=== PATIENT | female | born 1990 | race Caucasian/White ===

== ENCOUNTER 2019-06-11 09:36 | Emergency (ER) | payer OTHER, SELFPAY ==
[2019-06-11 10:00] VITALS: BP 123/86; PULSE 84; RESP 16; TEMP 36.6; O2SAT 99
--- NOTE | 2019-06-11 10:01 | ED.URI ---
HPI - URI/Sore Throat General Chief Complaint: Upper Respiratory Infection Stated Complaint: Sore Throat Time Seen by Provider: 06/11/19 10:10 Source: patient and RN notes reviewed Mode of arrival: ambulatory Limitations: no limitations History of Present Illness HPI Narrative: 28-year-old female presents with concern for sore throat, ear pain, headache, cough, nasal congestion. Reports symptoms started 2 days ago. She denies any body aches, fever, chills. Reports taking Robitussin no relief. MD elicited complaint: sore throat Related Data Home Medications Medication Instructions Recorded Confirmed Unknown Anxiety Pill 06/11/19 famotidine 20 mg PO DAILY 06/11/19 06/11/19 Allergies Allergy/AdvReac Type Severity Reaction Status Date / Time amoxicillin Allergy Unknown RASH Verified 01/19/18 11:05 cefaclor Allergy Unknown RASH Verified 01/19/18 11:05 clavulanic acid Allergy Unknown RASH Verified 01/19/18 11:05 Review of Systems Review of Systems: Narrative: CONSTITUTIONAL: Denies malaise, chills, sweats, or fever. EYES: Denies visual changes, redness, or discharge. ENT: Reports rhinorrhea, congestion, sinus pain, otalgia and sore throat. CARDIOVASCULAR: Denies chest pain, palpitations, or edema. RESPIRATORY: Reports cough. Denies dyspnea. GASTROINTESTINAL: Denies abdominal pain, nausea, vomiting, diarrhea SKIN: Denies rash or itching. MUSCULOSKELETAL: Denies myalgia. NEUROLOGIC: Reports headache. All systems reviewed & are unremarkable except as noted in HPI and below PMFSH Comments At time of signature, agree with nursing past medical, surgical, social and family history. There is no relevant family history pertinent to the presenting complaint Exam Narrative: Exam Narrative: GENERAL: Well-appearing, well-nourished, and in no acute distress. HEAD: Normocephalic EYES: PERRLA, conjunctivae clear ENT: Nares clear, turbinates edematous and erythematous, clear discharge. Mucous membranes moist. TM pearly randolph with dull light reflex bilaterally; no tragal tenderness. Oropharynx not erythematous without lesions. Tonsils not enlarged and without exudate, no drooling, no hoarseness, no trismus. NECK: Supple. No lymphadenopathy CHEST: Clear to auscultation, breath sounds equal. No wheezing, rhonchi, rales, or stridor. No respiratory distress, speaks in full sentences. HEART: Regular rate and rhythm. No murmur heard. Normal peripheral pulses. SKIN: Warm, dry, no rash. NEURO: Alert and oriented x3. PSYCH: Normal mood and affect Course Course Emergency Course: Patient is aware of diagnosis, understands and agrees to treatment plan. Anticipatory guidance given. Patient agrees to follow-up as directed and is aware of reasons to seek care at the emergency department. Portions of this record may have been created with voice recognition software Vital Signs Vital signs: Vital Signs Temperature 97.9 F 06/11/19 10:00 Pulse Rate 84 06/11/19 10:00 Respiratory Rate 16 06/11/19 10:00 Blood Pressure 123/86 06/11/19 10:00 Pulse Oximetry 99 06/11/19 10:00 Temperature 97.9 F 06/11/19 10:00 Pulse Rate 84 06/11/19 10:00 Respiratory Rate 16 06/11/19 10:00 Blood Pressure 123/86 06/11/19 10:00 Pulse Oximetry 99 06/11/19 10:00 Reviewed. Patient has been instructed to follow up with her primary care provider within the next week regarding her elevated blood pressure today. MDM - URI/Sore Throat MDM Narrative Medical decision making narrative: GENERAL: Well-appearing, well-nourished, and in no acute distress. HEAD: Normocephalic EYES: PERRLA, conjunctivae clear ENT: Nares clear, turbinates edematous and erythematous, clear discharge. Mucous membranes moist. TM pearly randolph with dull light reflex bilaterally; no tragal tenderness. Oropharynx erythematous without lesions. Tonsils enlarged and without exudate, no drooling, no hoarseness, no trismus. NECK: Supple. No lymphadenopathy CHEST: Clear to auscultation,
== END 2019-06-11 10:30 | disposition home or self-care (01) ==
PROVIDERS: Emergency Provider Nurse Practitioner
DX: J06.9 Acute upper respiratory infection, unspecified (principal)
CPT/HCPCS: 87081; 87880; 99213; G0463

== ENCOUNTER 2020-09-14 10:47 | Emergency (ER) | payer OTHER, SELFPAY ==
[2020-09-14 10:56] VITALS: BP 136/79; PULSE 93; RESP 18; TEMP 36.2; O2SAT 99
[2020-09-14 11:02] VITALS: BP 136/79; PULSE 93; RESP 18; TEMP 36.2; O2SAT 99
--- NOTE | 2020-09-14 11:11 | ED.SKABFB ---
HPI - Skin/Abscess/Foreign Bdy General Chief complaint: Skin/Abscess/Foreign Body Stated complaint: Poison Bianka/ Right Elbow pain Time Seen by Provider: 09/14/20 11:10 Source: patient Mode of arrival: ambulatory Limitations: no limitations History of Present Illness HPI narrative: Esther Day is a 29 yo female with no PMH who comes to [facility] with contact dermatitis on hands arms chest and buttocks that has been present for a week. She continues to have paresis as well as now has scabs where she has been scratching on her right arm particularly, states she is try taking Benadryl and is washed everything that she is coming contact with. Related Data Home Medications Medication Instructions Recorded Confirmed famotidine 20 mg PO DAILY 06/11/19 06/11/19 venlafaxine mg PO 09/14/20 Allergies Allergy/AdvReac Type Severity Reaction Status Date / Time amoxicillin Allergy Unknown RASH Verified 01/19/18 11:05 cefaclor Allergy Unknown RASH Verified 01/19/18 11:05 clavulanic acid Allergy Unknown RASH Verified 01/19/18 11:05 Review of Systems Review of Systems: Narrative: CONSTITUTIONAL: Denies fever, chills, sweats. EYES: Denies visual changes, redness, discharge. ENT: Denies rhinorrhea, congestion, sore throat, otalgia. CARDIOVASCULAR: Denies chest pain, palpitations, edema. RESPIRATORY: Denies dyspnea, wheezing, cough GASTROINTESTINAL: Denies abdominal pain, nausea, vomiting, diarrhea. GENITOURINARY: Denies dysuria, hematuria, abnormal discharge SKIN: Large areas of lesions on arms hands chest and buttocks for 1 week after cleaning up weeds and yard NEUROLOGIC: Denies numbness, or focal weakness. PSYCHIATRIC: Denies anxiety or depression. [facility] Social History Social History (Updated 09/14/20 @ 11:23 by Martha Gomez CNP) Smoking status: Current some day smoker Alcohol intake: current Comments At time of signature, I agree with nursing past medical, surgical, social and family history. There is no relevant family history pertinent to the presenting complaint. Exam Narrative: Exam Narrative: GENERAL: This is a well-nourished, well-developed patient, in mild distress. HEAD: normocephalic, atraumatic. EYES: Sclera clear/white. Vision intact Ears: . Hearing grossly intact. NOSE: External nose normal without nasal discharge, nares without redness, no rhinorrhea. THROAT: Mucous membranes moist, NECK: Neck supple, CARDIOVASCULAR: Regular rate and rhythm without murmurs, gallops, or rubs. RESPIRATORY: Clear to auscultation. Breath sounds equal bilaterally. No wheezes, rales, or rhonchi. GASTROINTESTINAL: Abdomen soft, non-tender, SKIN: warm, intact with rash on arms hands, chest buttocks, scabs on right arm NEURO: awake, alert, and oriented to person, place and time. There were no obvious focal neurologic abnormalities. Steady gait EXTREMITIES: Normal range of motion. BACK: Nontender without deformity Course Course Emergency Course: [facility] on upper extremities chest and buttocks that she contracted while cleaning out her garden a week ago Given prednisone 60 mg on site Started on Medrol Dosepak Benadryl Pepcid also started on Keflex because of the amount of scratching and swelling particularly in her right elbow area Vital Signs Vital signs: Vital Signs Temperature 97.2 F L 09/14/20 10:56 Pulse Rate 93 09/14/20 10:56 Respiratory Rate 18 09/14/20 10:56 Blood Pressure 136/79 09/14/20 10:56 Pulse Oximetry 99 09/14/20 10:56 Temperature 97.2 F L 09/14/20 11:02 Pulse Rate 93 09/14/20 11:02 Respiratory Rate 18 09/14/20 11:02 Blood Pressure 136/79 09/14/20 11:02 Pulse Oximetry 99 09/14/20 11:02 MDM - Skin/Abscess/Foreign Bdy Differential Diagnosis Differential diagnosis: Likely abscess of skin or subcutaneous tissue, urticaria, eczema, insect bites, impetigo, contact dermatitis and other Critical Care Time Critical Care Time Critic
[2020-09-14] MEDS: predniSONE 20 MG TABLET 60 MG PO (11:23)
== END 2020-09-14 11:40 | disposition home or self-care (01) ==
PROVIDERS: Emergency Provider Nurse Practitioner
DX: L23.7 Allergic contact dermatitis due to plants, except food (principal); F17.200 Nicotine dependence, unspecified, uncomplicated
CPT/HCPCS: 99213; G0463; J7512

== ENCOUNTER 2020-10-12 11:20 | Emergency (ER) | payer OTHER, SELFPAY ==
[2020-10-12 11:30] VITALS: BP 147/76; PULSE 84; RESP 20; TEMP 36.4; O2SAT 98
--- NOTE | 2020-10-12 11:59 | ED.SKABFB ---
HPI - Skin/Abscess/Foreign Bdy General Chief complaint: Skin/Abscess/Foreign Body Stated complaint: Possible poison elpidio on right Arm Time Seen by Provider: 10/12/20 11:46 Source: patient, RN notes reviewed and old records reviewed Mode of arrival: ambulatory Limitations: no limitations History of Present Illness HPI narrative: Patient presents today complaining of persistent poison elpidio. She was initially seen at [facility] on 09/14/2020 and treated with a Medrol Dosepak and antibiotics. States she has 1 spot around her umbilicus and one spot on her right antecubital fossa that persists, but the rest of her dermatitis has since resolved. She has been applying antiitch cream and calamine lotion without much relief. Also complaining of right ear pain and fullness with intermittent sharp pains x3 to 4 days. Denies any other upper respiratory symptoms. MD complaint: rash Related Data Home Medications Medication Instructions Recorded Confirmed venlafaxine mg PO 09/14/20 Allergies Allergy/AdvReac Type Severity Reaction Status Date / Time amoxicillin Allergy Unknown RASH Verified 01/19/18 11:05 cefaclor Allergy Unknown RASH Verified 01/19/18 11:05 clavulanic acid Allergy Unknown RASH Verified 01/19/18 11:05 Review of Systems Review of Systems: Narrative: CONSTITUTIONAL: Denies body aches, fever, chills, or sweats. EYES: Denies visual changes, redness, or discharge. ENT: Denies rhinorrhea, congestion, sore throat. + Right ear pain CARDIOVASCULAR: Denies chest pain, palpitations, or edema. RESPIRATORY: Denies cough or dyspnea. GASTROINTESTINAL: Denies abdominal pain, nausea, vomiting, or diarrhea. GENITOURINARY: Denies dysuria or hematuria. SKIN: Denies wounds.+ Pruritic rash MUSCULOSKELETAL: Denies back pain, joint pain, or myalgia. NEUROLOGIC: Denies headache, numbness, tingling, or weakness. PSYCH: Denies depression or anxiety. [facility] Social History Social History Smoking status: Current some day smoker Alcohol intake: current Comments At time of signature, I have reviewed and agree with nursing past medical, surgical, social and family history unless otherwise noted. Please see nursing chart for further information. There is no relevant family history pertinent to the presenting complaint Exam Narrative: Exam Narrative: GENERAL: Well-appearing, well-nourished, and in no acute distress. HEAD: Normocephalic, atraumatic. EYES: EOMI. No redness or drainage. Conjunctivae normal. ENT: Mucous membranes pink and moist. Nares clear. No rhinorrhea. TMs normal bilaterally. Throat normal. Uvula midline. NECK: Normal AROM. Supple. No lymphadenopathy. CHEST: No respiratory distress. Clear to auscultation. HEART: Regular rate and rhythm. No murmur appreciated. Normal peripheral pulses. ABDOMEN: Soft, nontender, nondistended, normal active bowel sounds. MUSCULOSKELETAL: No bony tenderness. EXTREMITIES: Normal range of motion. No edema. SKIN: Warm, dry. Capillary refill normal. Normal skin turgor. Cluster of faintly erythematous maculopapular rash to the right antecubital fossa and just above the umbilicus. No vesicles or active drainage. No signs of bacterial infection. NEURO: No focal deficits. Alert and oriented x3. Gait steady. PSYCH: Normal affect. No signs of depression or anxiety. Course Vital Signs Vital signs: Vital Signs Temperature 97.6 F 10/12/20 11:30 Pulse Rate 84 10/12/20 11:30 Respiratory Rate 20 10/12/20 11:30 Blood Pressure 147/76 H 10/12/20 11:30 Pulse Oximetry 98 10/12/20 11:30 Temperature 97.6 F 10/12/20 11:30 Pulse Rate 84 10/12/20 11:30 Respiratory Rate 20 10/12/20 11:30 Blood Pressure 147/76 H 10/12/20 11:30 Pulse Oximetry 98 10/12/20 11:30 Reviewed. Pt has been instructed to follow up with her PCP regarding her elevated blood pressure today. MDM - Skin/Abscess/Foreign Bdy Differential Diag
== END 2020-10-12 12:12 | disposition home or self-care (01) ==
PROVIDERS: Emergency Provider Nurse Practitioner
DX: Z53.21 Procedure and treatment not carried out due to patient leaving prior to being seen by health care provider (principal)
CPT/HCPCS: 99213; G0463

== ENCOUNTER 2020-12-03 12:47 | Emergency (ER) | payer OTHER, SELFPAY ==
[2020-12-03 12:55] VITALS: BP 140/77; PULSE 89; RESP 20; TEMP 36.9; O2SAT 99
--- NOTE | 2020-12-03 13:26 | ED.URI ---
HPI - URI/Sore Throat General Chief Complaint: Upper Respiratory Infection Stated Complaint: Congestion, cough, sore Throat, running Nose, Time Seen by Provider: 12/03/20 13:26 Source: patient and RN notes reviewed Mode of arrival: ambulatory Limitations: no limitations History of Present Illness HPI Narrative: 29-year-old female presents to the [facility] with complaints of upper respiratory issues. Patient reports sore throat, sinus congestion, cough for 2 to 3 days. Has tried [id number] products with little to no relief. Denies fevers. States she started getting a headache today. Reports that her daughter had the same symptoms but she was able to get better by herself in 2 to 3 days. Related Data Home Medications Medication Instructions Recorded Confirmed ergocalciferol (vitamin D2) 1,250 mcg PO WEEKLY 12/03/20 12/03/20 famotidine 20 mg PO BID 12/03/20 12/03/20 glycopyrrolate See Rx Instructions .ROUTE 12/03/20 12/03/20 .COMPLEX PRN Allergies Allergy/AdvReac Type Severity Reaction Status Date / Time amoxicillin Allergy Unknown RASH Verified 12/03/20 13:08 cefaclor Allergy Unknown RASH Verified 12/03/20 13:08 clavulanic acid Allergy Unknown RASH Verified 12/03/20 13:08 Review of Systems Review of Systems: All systems reviewed & are unremarkable except as noted in HPI and below Constitutional: Constitutional: Reports no additional constitutional complaints, Denies chills and Denies fever(s) Eyes: Eyes: Reports no additional eye complaints ENT: Reports as per HPI and Reports nasal congestion Cardiovascular: Cardiovascular: Reports no additional cardiovascular complaints and Denies chest pain Respiratory: Respiratory: Reports as per HPI, Reports cough and Denies dyspnea Gastrointestinal: Gastrointestinal: Reports no additional gastrointestinal complaints, Denies abdominal pain, Denies nausea and Denies vomiting Musculoskeletal: Musculoskeletal: Reports no additional musculoskeletal complaints Integumentary/Breasts: Skin/Breast: Reports system reviewed and no additional complaints, except as docu Neurologic: Reports system reviewed and no additional complaints, except as documented Psychiatric: Psychiatric: Reports no additional psychiatric complaints Allergic/Immunologic: Allergic/Immunologic: Reports no additional allergic/immunologic complaints [facility] Past Medical History Medical History (Updated 12/04/20 @ 09:57 by Leah South) No significant medical problems Social History Social History Smoking status: Current some day smoker Alcohol intake: current Comments At the time of my signature, I reviewed and agree with the nursing past medical, surgical, social, and family history. There is no relevant family history pertinent to the patient complaint. Exam Const: General: healthy appearing, no acute distress and alert Nutritional Appearance: well nourished and obese Orientation/consciousness: patient oriented x3 Limitations: no limitations HENMT: Head: normal to inspection Ears: external ears normal, TM's normal bilaterally and EAC's normal General nose exam: Abnormal mucous membranes and turbinates present boggy; not erythematous and Nasal discharge present clear Face and sinus: normal facial exam and sinuses nontender Throat: uvula midline and postnasal drainage Eyes: Conjunctivae: conjunctivae normal Pupils: Equal, round and reactive pupils present Neck: Neck: normal visual inspection, no lymphadenopathy and no meningeal signs Chest: Chest palpation & inspection: normal inspection of the chest Resp: Effort & Inspection: normal respiratory effort and no use of accessory muscles Auscultation: clear to auscultation bilaterally, no crackles, no rales, no rhonchi and no wheezes Cardio: Rate: regular rate Rhythm: regular rhythm : General: Yes no CVA tenderness Back/Spine/Pelvis: Back: no CVA tenderness Skin: General s
== END 2020-12-03 13:40 | disposition home or self-care (01) ==
PROVIDERS: Emergency Provider Nurse Practitioner; PCP Orthopaedic Surgery
DX: J40 Bronchitis, not specified as acute or chronic (principal); R09.82 Postnasal drip; J01.40 Acute pansinusitis, unspecified; F17.200 Nicotine dependence, unspecified, uncomplicated
CPT/HCPCS: 87081; 87880; 99213; G0463

== ENCOUNTER 2021-01-12 11:58 | Emergency (ER) | payer OTHER, SELFPAY ==
[2021-01-12 12:09] VITALS: BP 127/71; PULSE 78; RESP 16; TEMP 36.3; O2SAT 100
--- NOTE | 2021-01-12 12:57 | ED.SKABFB ---
HPI - Skin/Abscess/Foreign Bdy General Chief complaint: Skin/Abscess/Foreign Body Stated complaint: Skin Problem under arm Time Seen by Provider: 01/12/21 12:57 Source: patient, RN notes reviewed and old records reviewed Mode of arrival: ambulatory Limitations: no limitations History of Present Illness HPI narrative: 30 year old female who presents to [facility] with complaints of 4-5 days of red raised firm tissue areas in bilateral axilla and 2 week area to left groin with no pustular formation or induration. Patient states that she has a previous occurrence of similar raised areas in her axilla in the past with last incidence 2 years ago. Patient states that the red raised issue areas are tender to palpation in axilla region and small area to left groin remains tenderness though redness is gone. Patient states that she has taken some Ibuprofen for her discomfort rates her discomfort as 3/10. Patient denies any known fevers chills or sweats. MD complaint: rash Related Data Home Medications Medication Instructions Recorded Confirmed ergocalciferol (vitamin D2) 1,250 mcg PO WEEKLY 12/03/20 01/12/21 famotidine 20 mg PO BID 12/03/20 01/12/21 glycopyrrolate See Rx Instructions .ROUTE 12/03/20 01/12/21 .COMPLEX PRN Allergies Allergy/AdvReac Type Severity Reaction Status Date / Time amoxicillin Allergy Unknown RASH Verified 01/12/21 12:03 cefaclor Allergy Unknown RASH Verified 01/12/21 12:03 clavulanic acid Allergy Unknown RASH Verified 01/12/21 12:03 Review of Systems Review of Systems: CONSTITUTIONAL: Denies fever, chills, or sweats. EYES: Denies visual changes, redness, or discharge. ENT: Denies rhinorrhea, congestion, sore throat, or otalgia. CARDIOVASCULAR: Denies chest pain, palpitations, or edema. RESPIRATORY: Denies cough or dyspnea. GASTROINTESTINAL: Denies abdominal pain, nausea, vomiting, or diarrhea. GENITOURINARY: Denies dysuria or hematuria. SKIN: Positive for red scattered firm areas in bilateral axilla and tender area to left groin with no redness MUSCULOSKELETAL: Denies back pain, joint pain, or myalgia. NEUROLOGIC: Denies headache, numbness, or weakness. PSYCHIATRIC: Denies anxiety or depression. All systems reviewed & are unremarkable except as noted in HPI and below PMFSH Past Medical History Medical History Anxiety GERD (gastroesophageal reflux disease) IBS (irritable bowel syndrome) No significant medical problems Surgical History Surgical History History of placement of ear tubes History of tonsillectomy Previous back surgery Status post laparoscopic fundoplication Family History Family History Other No significant family history Social History Social History Smoking status: Current some day smoker Alcohol intake: current Substance use: never Living arrangements: with family Gender identity (if verbalized by the patient): Female Comments At time of signature, agree with nursing past medical, surgical, social and family history. There is no relevant family history pertinent to the presenting complaint Exam Narrative: GENERAL: Well-appearing, well-nourished, and in no acute distress. HEAD: Normocephalic, atraumatic. EYES: PERRLA and EOMI. ENT: Nares clear, no rhinorrhea or epistaxis. Mucous membranes moist.TM's normal, throat pink with no lesions or exudates, tonsil absent NECK: Supple.no lymphadenopathy CHEST: Clear to auscultation. No respiratory distress.SAO2 100% on room air HEART: Regular rate and rhythm. No murmur heard. Normal peripheral pulses. ABDOMEN: Soft, nontender, nondistended, normal active bowel sounds. EXTREMITIES: Normal range of motion. No edema. SKIN: Warm, dry, scattered red raised firm areas to bilateral axilla no pustular formation or
== END 2021-01-12 13:15 | disposition home or self-care (01) ==
PROVIDERS: Emergency Provider Registered Nurse
DX: L73.9 Follicular disorder, unspecified (principal); F17.200 Nicotine dependence, unspecified, uncomplicated; K21.9 Gastro-esophageal reflux disease without esophagitis
CPT/HCPCS: 99213; G0463

== ENCOUNTER 2021-10-26 12:52 | Emergency (ER) | payer OTHER, SELFPAY ==
--- NOTE | 2021-10-26 12:55 | ED.SKABFB ---
HPI - Skin/Abscess/Foreign Bdy General Chief complaint: Skin/Abscess/Foreign Body Stated complaint: poison Bianka Time Seen by Provider: 10/26/21 13:15 Source: patient and RN notes reviewed Mode of arrival: ambulatory Limitations: no limitations History of Present Illness HPI narrative: 28-year-old female who is 7 months presents concern for itchy rash on her hands, neck, face. Reports she was working in her yard prior to getting the rash. She reports the rash is making her fingers feel swollen. Reports the rash continues to spread. She denies swollen lips, swollen tongue, trouble breathing. She has been trying to take Benadryl and using an [id number] antihistamine cream with little to no relief. MD complaint: rash Related Data Home Medications Medication Instructions Recorded Confirmed ondansetron HCl 4 mg tablet 1 tablet PO Q8H PRN Nausea 10/26/21 10/26/21 vits no.126-ferrous fum 1 tablet PO DAILY 10/26/21 10/26/21 28 mg iron-folic acid 800 mcg tablet (Classic ) Allergies Allergy/AdvReac Type Severity Reaction Status Date / Time amoxicillin Allergy Unknown RASH Verified 10/26/21 13:02 cefaclor Allergy Unknown RASH Verified 10/26/21 13:02 clavulanic acid Allergy Unknown RASH Verified 10/26/21 13:02 codeine Allergy Unknown Rash Verified 10/26/21 13:03 Review of Systems Review of Systems: CONSTITUTIONAL: Denies malaise, chills, sweats, or fever. EYES: Denies redness, or discharge. ENT: Denies rhinorrhea, congestion, swollen lips, swollen tongue CARDIOVASCULAR: Denies chest pain, palpitations, or edema. RESPIRATORY: Denies cough or dyspnea. GASTROINTESTINAL: Denies abdominal pain, nausea, vomiting SKIN: Reports rash MUSCULOSKELETAL: Denies joint painor myalgia. NEUROLOGIC: Denies headache. All systems reviewed & are unremarkable except as noted in HPI and below PMFSH Past Medical History Medical History Anxiety GERD (gastroesophageal reflux disease) IBS (irritable bowel syndrome) No significant medical problems Surgical History Surgical History History of placement of ear tubes History of tonsillectomy Previous back surgery Status post laparoscopic fundoplication Family History Family History Other No significant family history Social History Social History Smoking status: Current some day smoker Alcohol intake: current Substance use: never Gender identity (if verbalized by the patient): Female Comments At time of signature, agree with nursing past medical, surgical, social and family history. There is no relevant family history pertinent to the presenting complaint Exam Narrative: GENERAL: Well-appearing, well-nourished, and in no acute distress. HEAD: Normocephalic, atraumatic. EYES: PERRLA, conjunctivae clear, and EOMI. ENT: Mucous membranes moist. Oropharynx without edema, erythema or lesions. NECK: Supple. No lymphadenopathy CHEST: Clear to auscultation. No respiratory distress. HEART: Regular rate and rhythm. SKIN: Warm, dry. Patches of erythema with scattered vesicles noted to the right hand, face, left-sided neck, scattered vesicles noted to the left hand NEURO: Alert and oriented x3. PSYCH: Normal mood and affect Course Course Emergency Course: Patient is aware of diagnosis, understands and agrees to treatment plan. Anticipatory guidance given. Patient agrees to follow-up as directed and is aware of reasons to seek care at the emergency department. Portions of this record may have been created with voice recognition software Level of Care: Express Care Visit Vital Signs Vital signs: Reviewed. MDM - Skin/Abscess/Foreign Bdy MDM Narrative Medical decision making narrative: Does not appear at this time to be eryt
[2021-10-26 12:57] VITALS: BP 128/73; PULSE 99; RESP 16; TEMP 36.8; O2SAT 100
== END 2021-10-26 13:30 | disposition home or self-care (01) ==
PROVIDERS: Emergency Provider Nurse Practitioner; PCP Internal Medicine
DX: O99.719 Diseases of the skin and subcutaneous tissue complicating pregnancy, unspecified trimester (principal); Z3A.00 Weeks of gestation of pregnancy not specified; L25.9 Unspecified contact dermatitis, unspecified cause; F17.200 Nicotine dependence, unspecified, uncomplicated
CPT/HCPCS: 99213; G0463

== ENCOUNTER 2022-08-27 12:35 | Emergency (ER) | payer OTHER, SELFPAY ==
--- NOTE | 2022-08-27 12:44 | ED.SKABFB ---
HPI - Skin/Abscess/Foreign Bdy General Chief complaint: Skin/Abscess/Foreign Body Stated complaint: Rash Time Seen by Provider: 08/27/22 12:37 Source: patient and RN notes reviewed History of Present Illness HPI narrative: 31 yo F presents to urgent care with complaints of poison elpidio. Pt states she was working in the yard on Friday and yesterday noticed her rash on her inner arms. Pt states she will typically get poison elpidio really bad. Pt denies any fevers, chills, chest pain, SOB, or vomiting. Pt has applied steroid cream at home. Related Data Allergies Allergy/AdvReac Type Severity Reaction Status Date / Time amoxicillin Allergy Unknown RASH Verified 08/27/22 12:51 cefaclor Allergy Unknown RASH Verified 08/27/22 12:51 clavulanic acid Allergy Unknown RASH Verified 08/27/22 12:51 codeine Allergy Unknown Rash Verified 08/27/22 12:51 Review of Systems Review of Systems: Pertinent positives and pertinent negatives per HPI. [facility] Past Medical History Medical History Anxiety GERD (gastroesophageal reflux disease) IBS (irritable bowel syndrome) No significant medical problems Surgical History Surgical History History of placement of ear tubes History of tonsillectomy Previous back surgery Status post laparoscopic fundoplication Family History Family History Other No significant family history Social History Social History Smoking status: Current some day smoker Alcohol intake: current Substance use: never Living arrangements: with family Gender identity (if verbalized by the patient): Female Comments At the time of my signature, I reviewed and agree with the nursing past medical, surgical, social, and family history. There is no relevant family history pertinent to the patient complaint. Exam Narrative: GENERAL: This is a well-nourished, well-developed patient, in no apparent distress. HEAD: normocephalic, atraumatic. EYES: Sclera clear/white. Vision is grossly intact. EARS: External ears normal, auditory canals clear and without drainage. Hearing grossly intact. NOSE: External nose normal with no obvious nasal discharge, nares without redness, no rhinorrhea. THROAT: Mucous membranes moist, posterior pharynx clear. NECK: Neck supple, non-tender without lymphadenopathy, masses or thyromegaly. CARDIOVASCULAR: Regular rate and rhythm without murmurs, gallops, or rubs. RESPIRATORY: Clear to auscultation. Breath sounds equal bilaterally. No wheezes, rales, or rhonchi. GASTROINTESTINAL: Abdomen soft, non-tender, nondistended. Bowel sounds are active. No hepato-splenomegaly, or palpable masses. No guarding. SKIN: sporadic, erythremic, papules noted to bilateral forearms NEURO: awake, alert, and oriented to person, place and time. There were no obvious focal neurologic abnormalities. EXTREMITIES: No clubbing, cyanosis, or edema. No joint tenderness, effusion, or edema noted. BACK: Nontender without deformity or crepitance. No flank tenderness. Course Course Level of Care: Express Care Visit Vital Signs Vital signs: Vital Signs Temperature 97.3 F L 08/27/22 12:52 Pulse Rate 77 08/27/22 12:52 Respiratory Rate 16 08/27/22 12:52 Blood Pressure 115/61 08/27/22 12:52 Pulse Oximetry 99 08/27/22 12:52 Oxygen Delivery Room Air 08/27/22 12:52 Temperature 97.3 F L 08/27/22 12:52 Pulse Rate 77 08/27/22 12:52 Respiratory Rate 16 08/27/22 12:52 Blood Pressure 115/61 08/27/22 12:52 Pulse Oximetry 99 08/27/22 12:52 Oxygen Delivery Room Air 08/27/22 12:52 Reviewed MDM - Skin/Abscess/Foreign Bdy MDM Narrative Medical decision making narrative: Prevention is always better than treatment. Learn to identify poison elpidio, oak, and sumac and avoid it. We
[2022-08-27 12:52] VITALS: BP 115/61; PULSE 77; RESP 16; TEMP 36.3; O2SAT 99
== END 2022-08-27 13:04 | disposition home or self-care (01) ==
PROVIDERS: Emergency Provider Nurse Practitioner Family; PCP Internal Medicine
DX: L25.5 Unspecified contact dermatitis due to plants, except food (principal); F17.200 Nicotine dependence, unspecified, uncomplicated; K21.9 Gastro-esophageal reflux disease without esophagitis
CPT/HCPCS: 99213; G0463

== ENCOUNTER 2022-11-22 09:24 | Emergency (ER) | payer OTHER, SELFPAY ==
[2022-11-22 09:32] VITALS: BP 119/82; PULSE 77; RESP 16; TEMP 36.4; O2SAT 100
--- NOTE | 2022-11-22 09:48 | ED.SKABFB ---
HPI - Skin/Abscess/Foreign Bdy General Chief complaint: Skin/Abscess/Foreign Body Stated complaint: Poison Bianka Source: patient and RN notes reviewed History of Present Illness HPI narrative: 31 yo F presents to urgent care with complaints of an itchy rash to her forearms and bilateral shins. Pt states she was working in her yard yesterday and these spots popped up after she was done with the yard work. Pt states she has contracted poison bianka multiple times as an adult. Pt denies any fevers, chills, vomiting, chest pain, or SOB. Related Data Allergies Allergy/AdvReac Type Severity Reaction Status Date / Time amoxicillin Allergy Unknown RASH Verified 11/22/22 09:37 cefaclor Allergy Unknown RASH Verified 11/22/22 09:37 clavulanic acid Allergy Unknown RASH Verified 11/22/22 09:37 codeine Allergy Unknown Rash Verified 11/22/22 09:37 Review of Systems Review of Systems: CONSTITUTIONAL: Denies fever, chills, or sweats. EYES: Denies visual changes, redness, or discharge. ENT: Denies otalgia and sore throat CARDIOVASCULAR: Denies chest pain, palpitations, or edema. RESPIRATORY: Denies cough or dyspnea. GASTROINTESTINAL: Denies abdominal pain, nausea, vomiting, or diarrhea. GENITOURINARY: Denies dysuria or hematuria. SKIN: Itchy rash MUSCULOSKELETAL: Denies back pain, joint pain, or myalgia. NEUROLOGIC: Denies headache, numbness, or weakness. Pertinent positives per HPI. [facility] Past Medical History Medical History Anxiety GERD (gastroesophageal reflux disease) IBS (irritable bowel syndrome) No significant medical problems Surgical History Surgical History History of placement of ear tubes History of tonsillectomy Previous back surgery Status post laparoscopic fundoplication Family History Family History Other No significant family history Social History Social History Smoking status: Current some day smoker Alcohol intake: current Substance use: never Living arrangements: with family Gender identity (if verbalized by the patient): Female Comments At the time of my signature, I reviewed and agree with the nursing past medical, surgical, social, and family history. There is no relevant family history pertinent to the patient complaint. Exam Narrative: GENERAL: This is a well-nourished, well-developed patient, in no apparent distress. HEAD: normocephalic, atraumatic. EYES: Sclera clear/white. Vision is grossly intact. EARS: External ears normal, auditory canals clear and without drainage. Hearing grossly intact. NOSE: External nose normal with no obvious nasal discharge, nares without redness, no rhinorrhea. THROAT: Mucous membranes moist, posterior pharynx clear. NECK: Neck supple, non-tender without lymphadenopathy, masses or thyromegaly. CARDIOVASCULAR: Regular rate RESPIRATORY: No respiratory distress SKIN: few, erythremic, spots, that could have been papules that were scratched open, noted to left lower leg (2), left FA (1), and right FA (2). NEURO: awake, alert, and oriented to person, place and time. There were no obvious focal neurologic abnormalities. EXTREMITIES: No clubbing, cyanosis, or edema. No joint tenderness, effusion, or edema noted. BACK: Nontender without deformity or crepitus. No flank tenderness. Course Course Level of Care: Express Care Visit Vital Signs Vital signs: Vital Signs Temperature 97.6 F 11/22/22 09:32 Pulse Rate 77 11/22/22 09:32 Respiratory Rate 16 11/22/22 09:32 Blood Pressure 119/82 11/22/22 09:32 Pulse Oximetry 100 11/22/22 09:32 Oxygen Delivery Room Air 11/22/22 09:32 Temperature 97.6 F 11/22/22 09:32 Pulse Rate 77 11/22/22 09:32 Respiratory Rate 16 11/22/22 09:32 Blood Pressure 119/82 08/1
== END 2022-11-22 09:55 | disposition home or self-care (01) ==
PROVIDERS: Emergency Provider Nurse Practitioner Family; PCP Internal Medicine
DX: L25.9 Unspecified contact dermatitis, unspecified cause (principal); F17.200 Nicotine dependence, unspecified, uncomplicated; K21.9 Gastro-esophageal reflux disease without esophagitis
CPT/HCPCS: 99213; G0463

== ENCOUNTER 2023-02-04 11:55 | Emergency (ER) | payer OTHER, SELFPAY ==
[2023-02-04 12:06] VITALS: BP 132/89; PULSE 70; RESP 16; TEMP 36.1; O2SAT 98
--- NOTE | 2023-02-04 12:53 | ED.GENADULT ---
HPI - General Adult General Chief complaint: Skin/Abscess/Foreign Body Stated complaint: Skin Sore Source: patient Mode of arrival: ambulatory Limitations: no limitations History of Present Illness HPI narrative: Patient presents for evaluation of a bump to her hairline in the occipital region of her head. She states that she thought that the area may be infectious. It sounds like she has a history of abscess formations in various areas that have required incision and drainage. No fever, chills, nausea, vomiting, redness, drainage from the affected area. She initially noted the symptoms when she was rubbing her head. She is not aware of any trauma to him. She also denies any otalgia, tinnitus, hearing loss, sore throat or other infectious symptoms. Related Data Allergies Allergy/AdvReac Type Severity Reaction Status Date / Time amoxicillin Allergy Unknown RASH Verified 11/22/22 09:37 cefaclor Allergy Unknown RASH Verified 11/22/22 09:37 clavulanic acid Allergy Unknown RASH Verified 11/22/22 09:37 codeine Allergy Unknown Rash Verified 11/22/22 09:37 Review of Systems Review of Systems: CONSTITUTIONAL: Denies fever, chills, or sweats. EYES: Denies visual changes, redness, or discharge. ENT: Denies rhinorrhea, congestion, sore throat, or otalgia. CARDIOVASCULAR: Denies chest pain, palpitations, or edema. RESPIRATORY: Denies cough or dyspnea. GASTROINTESTINAL: Denies abdominal pain, nausea, vomiting, or diarrhea. GENITOURINARY: Denies dysuria or hematuria. SKIN: Denies rash or itching. MUSCULOSKELETAL: Denies back pain, joint pain, or myalgia. LYMPHATICS: Reports a painful ?bump? to the hairline of her occipital region of her head NEUROLOGIC: Denies headache, numbness, dizziness, or weakness. PSYCHIATRIC: Denies anxiety or depression. [facility] Past Medical History Medical History Anxiety GERD (gastroesophageal reflux disease) IBS (irritable bowel syndrome) No significant medical problems Surgical History Surgical History History of placement of ear tubes History of tonsillectomy Previous back surgery Status post laparoscopic fundoplication Family History Family History Other No significant family history Social History Social History Alcohol intake: current Substance use: never Living arrangements: with family Gender identity (if verbalized by the patient): Female Sexual Orientation (if Verbalized by the Patient): Straight or Heterosexual Spiritual care concerns: No Exam Narrative: GENERAL: Well-appearing, well-nourished, and in no acute distress. HEAD: Normocephalic, atraumatic. EYES: PERRLA and EOMI. ENT: Nares clear, no rhinorrhea or epistaxis. Mucous membranes moist. Oropharynx without tonsillar hypertrophy exudate or other lesions. Bilateral TMs pearly randolph nonbulging NECK: Supple. No adenopathy or masses. No carotid bruits or JVD CHEST: Clear to auscultation. No respiratory distress. No wheezes rales or rhonchi HEART: Regular rate and rhythm. No murmur heard. Normal peripheral pulses. ABDOMEN: Soft, nontender, nondistended, normal active bowel sounds. EXTREMITIES: Normal range of motion. No edema. LYMPHATICS: There is a palpable right occipital lymph node without overlying erythema or wound SKIN: Warm, dry, no rash. NEURO: No focal deficits. Alert and oriented x3. PSYCH: Normal mood and affect. Course Course Emergency Course: This is a 32-year-old female who presented for evaluation of a painful lump to the occipital region of her head. I reassured her that this was not an abscess. There is no associated erythema, fluctuance, drainage present. She does not have any other infectious symptoms. I recommended she take NSAIDs for swelling an
== END 2023-02-04 13:01 | disposition home or self-care (01) ==
PROVIDERS: Emergency Provider Nurse Practitioner; PCP Internal Medicine
DX: R59.0 Localized enlarged lymph nodes (principal); K21.9 Gastro-esophageal reflux disease without esophagitis
CPT/HCPCS: 99211; G0463

== ENCOUNTER 2023-05-01 17:25 | Emergency (ER) | payer OTHER, SELFPAY ==
[2023-05-01 17:30] VITALS: BP 117/73; PULSE 90; RESP 20; TEMP 37; O2SAT 99
--- NOTE | 2023-05-01 18:00 | ED.EAR ---
HPI - Ear Problem General Chief complaint: Ear Stated complaint: Left Ear Pain Time Seen by Provider: 05/01/23 18:02 Source: patient Mode of arrival: ambulatory Limitations: no limitations History of Present Illness HPI Narrative: 32-year-old female presenting for complaint of left ear pain, pressure, and a sore in the ear, for the past week. Endorses mild nasal congestion. Skin lesion has not drained. Reports mild tenderness to the site. She has not taken anything for pain. Rates pain 6/10. Denies tinnitus, dizziness, nausea, vomiting diarrhea, fevers or chills. MD Complaint: ear pain Related Data Home Medications Medication Instructions Recorded Confirmed No Home Medications 05/01/23 05/01/23 Allergies Allergy/AdvReac Type Severity Reaction Status Date / Time amoxicillin Allergy Unknown RASH Verified 05/01/23 17:39 cefaclor Allergy Unknown RASH Verified 05/01/23 17:39 clavulanic acid Allergy Unknown RASH Verified 05/01/23 17:39 codeine Allergy Unknown Rash Verified 05/01/23 17:39 Review of Systems Review of Systems: CONSTITUTIONAL: Denies malaise, chills, or fever. EYES: Denies visual changes, redness, or discharge. ENT: Denies rhinorrhea, congestion, sinus pain, and sore throat. Reports ear pain CARDIOVASCULAR: Denies chest pain, palpitations, or edema. RESPIRATORY: Denies cough or dyspnea. GASTROINTESTINAL: Denies abdominal pain, nausea, vomiting, diarrhea SKIN: Denies rash or itching. MUSCULOSKELETAL: Denies myalgia. NEUROLOGIC: Denies headache. All systems reviewed & are unremarkable except as noted in HPI and below PMFSH Past Medical History Medical History Anxiety GERD (gastroesophageal reflux disease) IBS (irritable bowel syndrome) No significant medical problems Surgical History Surgical History History of placement of ear tubes History of tonsillectomy Previous back surgery Status post laparoscopic fundoplication Family History Family History Other No significant family history Social History Social History Alcohol intake: current Substance use: never Living arrangements: with family Gender identity (if verbalized by the patient): Female Sexual Orientation (if Verbalized by the Patient): Straight or Heterosexual Spiritual care concerns: No Comments At time of signature, agree with nursing past medical, surgical, social and family history. There is no relevant family history pertinent to the presenting complaint Exam Narrative: GENERAL: Well-appearing EYES: conjunctivae clear ENT: Nares clear. Mucous membranes moist. TMs pearly randolph with dull light reflex bilaterally; no tragal tenderness or mastoid tenderness. No surrounding lymph node swelling. approx 3mm diameter slightly raised mildly erythematous nodule to left aniket, no swelling induration or drainage, mild ttp. Oropharynx not erythematous without lesions. NECK: Supple. No lymphadenopathy CHEST: Clear to auscultation, breath sounds equal. No wheezing, rhonchi, rales, or stridor. No respiratory distress, speaks in full sentences. HEART: Regular rate and rhythm. No murmur heard. SKIN: Warm, dry, no rash. NEURO: Alert and oriented x3. PSYCH: Normal mood and affect Course Course Emergency Course: Patient is aware of diagnosis, understands and agrees to treatment plan. Anticipatory guidance given. Patient agrees to follow-up as directed and is aware of reasons to seek care at the emergency department. Portions of this record may have been created with voice recognition software Level of Care: Express Care Visit Vital Signs Vital signs: Vital Signs Temperature 98.6 F 05/01/23 17:30 Pulse Rate 90 05/01/23 17:30 Respiratory Rate 20 05/01/23 17:30 Blood Pressure 117/73
== END 2023-05-01 18:13 | disposition home or self-care (01) ==
PROVIDERS: Emergency Provider Nurse Practitioner Family; PCP Internal Medicine
DX: H93.8X2 Other specified disorders of left ear (principal); H69.92 Unspecified Eustachian tube disorder, left ear; K21.9 Gastro-esophageal reflux disease without esophagitis
CPT/HCPCS: 99211; G0463

== ENCOUNTER 2024-01-12 17:10 | Emergency (ER) | payer OTHER, SELFPAY ==
[2024-01-12 17:16] VITALS: BP 113/73; PULSE 86; RESP 20; TEMP 36.7; O2SAT 100
--- NOTE | 2024-01-12 17:49 | ED.EAR ---
HPI - Ear Problem General Chief complaint: Ear Stated complaint: Ear Pain History of Present Illness HPI Narrative: patient is a 33-year-old female, presents to [facility] with bilateral ear pain and has been intermittent for the past week. She notes that the pain is sharp in quality at times, without exacerbating events. She denies associated fevers chills. She has had no otorrhea or trauma. She does endorse history of seasonal allergies and has had some mild nasal congestion. She denies any additional associated symptoms or modifying factors. She is not . Related Data Home Medications Medication Instructions Recorded Confirmed venlafaxine 75 mg capsule,extended mg PO 01/12/24 release 24 hr Allergies Allergy/AdvReac Type Severity Reaction Status Date / Time amoxicillin Allergy Unknown RASH Verified 05/01/23 17:39 cefaclor Allergy Unknown RASH Verified 05/01/23 17:39 clavulanic acid Allergy Unknown RASH Verified 05/01/23 17:39 codeine Allergy Unknown Rash Verified 05/01/23 17:39 Review of Systems ENT: Comments: Refer to [facility] Past Medical History Medical History Anxiety GERD (gastroesophageal reflux disease) IBS (irritable bowel syndrome) No significant medical problems Surgical History Surgical History History of placement of ear tubes History of tonsillectomy Previous back surgery Status post laparoscopic fundoplication Family History Family History Other No significant family history Social History Social History Alcohol intake: current Substance use: never Living arrangements: with family Gender identity (if verbalized by the patient): Female Sexual Orientation (if Verbalized by the Patient): Straight or Heterosexual Spiritual care concerns: No Exam Const: General: healthy appearing and no acute distress Nutritional Appearance: well nourished and obese Orientation/consciousness: patient oriented x3 Limitations: no limitations HENMT: Head: normal to inspection Ears: external ears normal and TM abnormal with fluid behind the TM ( serous pattern, retracted bilaterally) Face/Nose/Sinus: Normal external nose present Face and sinus: normal facial exam Teeth and gingiva: dentition normal Throat: posterior oropharynx normal and uvula midline Eyes: Conjunctivae: conjunctivae normal Pupils: Equal, round and reactive pupils present EOM: EOMs intact bilaterally Neck: Neck: normal visual inspection, no lymphadenopathy and no meningeal signs Resp: Effort & Inspection: normal respiratory effort Auscultation: clear to auscultation bilaterally Cardio: Rate: regular rate Rhythm: regular rhythm Skin: General skin exam: normal color Rashes: no rashes Wounds: no wounds Neuro: General: patient oriented x3, moves all extremities, no meningeal signs, no focal motor deficits and CN's II-XI intact bilaterally Cranial nerves: Yes Nystagmus not present Speech: normal speech Gait exam (Neuro): Normal gait present Extrem: General: normal to inspection Course Course Emergency Course: patient has evidence of eustachian tube dysfunction, serous pattern present TMs bilaterally, will treat with short steroid course, she is encouraged to start [id number] Zyrtec and Flonase additionally, follow up with her PCP if symptoms not improving in 3 days. Patient is agreeable with plan. Level of Care: Express Care Visit ([id number]) Medical Decision Making MDM Narrative Medical decision making narrative: Prednisone daily for 5 days, [id number] Zyrtec and Flonase Differential Diagnosis Differential Diagnosis: eustachian tube dysfunction, otitis media, otitis externa, serous otitis Discharge Plan Discharge Clinical Impression: Acute serous
== END 2024-01-12 18:05 | disposition home or self-care (01) ==
PROVIDERS: Emergency Provider Nurse Practitioner Family; PCP Internal Medicine
DX: H65.03 Acute serous otitis media, bilateral (principal); K21.9 Gastro-esophageal reflux disease without esophagitis; F41.9 Anxiety disorder, unspecified
CPT/HCPCS: 99213; G0463

== ENCOUNTER 2024-04-10 10:46 | Emergency (ER) | payer OTHER, SELFPAY ==
[2024-04-10 10:57] VITALS: BP 118/69; PULSE 73; RESP 18; TEMP 35.3; O2SAT 99
--- NOTE | 2024-04-10 11:01 | ED.EAR ---
HPI - Ear Problem General Chief complaint: Ear Stated complaint: Cough/Ear Pain Time Seen by Provider: 04/10/24 11:01 Source: patient Mode of arrival: ambulatory Limitations: no limitations History of Present Illness HPI Narrative: 33-year-old female presents with complaint of nasal congestion, sinus headache, mild cough for 2-3 days. Left ear pain starting yesterday, left ear throbbing radiating down in to left jaw. No chest pain or shortness breath. All systems reviewed and negative except as noted above. Related Data Home Medications ?Medication ?Instructions ?Recorded ?Confirmed ?Last Taken ?Type venlafaxine 75 mg capsule,extended mg PO 01/12/24 Unknown History release 24 hr Allergies Allergy/AdvReac Type Severity Reaction Status Date / Time amoxicillin Allergy Unknown RASH Verified 05/01/23 17:39 cefaclor Allergy Unknown RASH Verified 05/01/23 17:39 clavulanic acid Allergy Unknown RASH Verified 05/01/23 17:39 codeine Allergy Unknown Rash Verified 05/01/23 17:39 Review of Systems Review of Systems: CONSTITUTIONAL: Denies fever, chills, or sweats. reports fatigue. EYES: Denies visual changes, redness, or discharge. ENT: Reports rhinorrhea, congestion, sinus pressure. Denies sore throat, or otalgia. CARDIOVASCULAR: Denies chest pain, palpitations, or edema. RESPIRATORY: reports cough. Denies dyspnea. GASTROINTESTINAL: Denies abdominal pain, nausea, vomiting, or diarrhea. GENITOURINARY: Denies dysuria or hematuria. SKIN: Denies rash or itching. MUSCULOSKELETAL: Denies back pain, joint pain, or myalgia. NEUROLOGIC: Denies headache, numbness, or weakness. PSYCHIATRIC: Denies anxiety or depression. All other systems reviewed are negative, except as documented in HPI. [facility] Past Medical History Medical History Anxiety GERD (gastroesophageal reflux disease) IBS (irritable bowel syndrome) No significant medical problems Surgical History Surgical History History of placement of ear tubes History of tonsillectomy Previous back surgery Status post laparoscopic fundoplication Family History Family History Other No significant family history Social History Social History Alcohol intake: current Substance use: never Living arrangements: with family Gender identity (if verbalized by the patient): Female Sexual Orientation (if Verbalized by the Patient): Straight or Heterosexual Spiritual care concerns: No Comments At time of signature, agree with nursing past medical, surgical, social and family history. There is no relevant family history pertinent to the presenting complaint. Exam Narrative: GENERAL: This is a well-nourished, well-developed patient, in no apparent distress. HEAD: normocephalic, atraumatic. EYES: PERRL. Sclera clear/white. Vision is grossly intact. EARS: External ears normal, auditory canals clear and without drainage, Erythema left TM with fluid, right TM normal without perforation. Hearing grossly intact. NOSE: External nose normal with mild congestion, clear nasal drainage THROAT: Mucous membranes moist, mild erythema with clear postnasal drainage NECK: Neck supple, non-tender without lymphadenopathy, masses or thyromegaly. CARDIOVASCULAR: Regular rate and rhythm without murmurs, gallops, or rubs. RESPIRATORY: Clear to auscultation. Breath sounds equal bilaterally. No wheezes, rales, or rhonchi. SKIN: warm, Dry, intact with no suspicious lesions or rash, good texture and turgor. NEURO: awake, alert, and oriented to person, place and time. There were no obvious focal neurologic abnormalities. EXTREMITIES: No joint tenderness, effusion, or edema noted. Course Course Level of Care: Express Care Visit Vital Signs Vital signs: Vital Signs Temperature 35.3 C L 04/10/24 10:57 Pulse Rate 73 04/10/24 10:57 Respiratory Rate 18 04/10/24 10:57 Blood Pressure 118/69 04/10/24 10:57 Pulse Oximetry 99 04/10/24 10:57 Oxygen Delivery Room Air 04/10/24 10:57 Temperature 35.3 C L 04/10/24 10:57 Pulse Rate 73 04/10/24 10:57 Respiratory Rate 18 04/10/24 10:57 Blood Pressure 118/69 04/10/24 10:57 Pulse Oximetry 99 04/10/24 10:57 Oxygen Delivery Room Air 04/10/24 10:57 reviewed Medical Decision Making MDM Narrative Medical decision making narrative: Patient is aware of diagnosis, understands and agrees to treatment plan. Anticipatory guidance given. Patient agrees to follow-up as directed and is aware of reasons to seek care at the emergency department. Portions of this record may have been created with voice recognition software Differential Diagnosis Differential Diagnosis: Vital Signs Vital Signs: Vital Signs Temperature 35.3 C L 04/10/24 10:57 Pulse Rate 73 04/10/24 10:57 Respiratory Rate 18 04/10/24 10:57 Blood Pressure 118/69 04/10/24 10:57 Pulse Oximetry 99 04/10/24 10:57 Oxygen Delivery Room Air 04/10/24 10:57 Temperature 35.3 C L 04/10/24 10:57 Pulse Rate 73 04/10/24 10:57 Respiratory Rate 18 04/10/24 10:57 Blood Pressure 118/69 04/10/24 10:57 Pulse Oximetry 99 04/10/24 10:57 Oxygen Delivery Room Air 04/10/24 10:57 Discharge Plan Discharge Clinical Impression: Acute left otitis media, Acute viral sinusitis Patient Disposition: Home, Self-Care Condition: Stable Instructions: Antibiotic Form, Ear Infection (ED) Additional Instructions: take antibiotic as prescribed until gone. Start an [id number]-[id number] medication to treat her symptoms such as DayQuil NyQuil cold and Sinus. Use an ayzd-ffp-bdztlca nasal spray such as Flonase or Nasacort. Drink at least 64 oz of water a day. Follow-up with your primary care physician if symptoms are not improving. Patient Language: Bulgarian Prescriptions: New azithromycin 250 mg tablet See Rx Instructions .ROUTE .COMPLEX Qty: 6 0RF Rx Instructions: For 250 mg dose pack: take 500 mg today (day 1), then 250 mg for 4 days (days 2-5) No Action venlafaxine 75 mg capsule,extended release 24hr PO Follow-up/Referrals: Chelita,Kj Triana MD [Primary Care Provider] - Time of Disposition: 11:05
--- OUTSIDE RECORDS SUMMARY | 2024-04-17 13:49 | XMS_ITS | Encounter Summary ---
Author Organization [facility] Address [address] [facility] [place] [address] Care Team Providers Care Bone Puller Name Role Phone Diana Robles Primary Care Provider Encounter Details Date Type Department Care Team (Late st Contact Info) Description 08/09/2019 Orders Only [facility] PHYS SURGERY [address] [place] [address] Araceli Gudino MD [address] [place] [address] Palmar wrist ganglion Social History Tobacco Use Types Packs/Day Years Used Date Smoking Tobacco: Former Cigarettes Q uit: 05/04/2018 Smokeless Tobacco: Never Alcohol Use Standard Drinks/Week Comments Yes 0 (1 standard drink = 0.6 oz pur e alcohol) Sex and Gender Information Value Date Recorded Sex Assigned at Female 06/05/2021 9:56 PM RELATIONSHIP CONSULTANT Gender Identity Female 06/05/2021 9:56 PM RELATIONSHIP CONSULTANT Sexual Orientation Straight 06/05/2021 9: 56 PM RELATIONSHIP CONSULTANT documented as of this encounter Plan of Treatment Not on file documented as of this encounter Visit Diagnoses Diagnosis Palmar wrist ganglion- Primary Ganglion of joint documented in this encounter Care Teams Bone Puller Relationship Specialty Start Date End Date Diana Robles APRN-CNP [address] [place] [address] Dr Baker [address] [place] [address] [phone] PCP - General 10/22/18 documented as of this encounter
--- OUTSIDE RECORDS SUMMARY | 2024-04-17 13:49 | XMS_ITS ---
Care Plan - [facility] Created on: April 17, 2024 FRANCO RODRIGUEZ : 1990 Sex: Female Author Organization [facility] Address [address] [place] [address] Phone Care Team Providers Care Tax Audit Manager Name Role Phone CHRISTOPHER VALLEJO, GLYNN Thapa Unavailable [phone]
--- OUTSIDE RECORDS SUMMARY | 2024-04-17 13:49 | XMS_ITS | Clinical Summary ---
Author Organization [facility] Address [address] [place] [address] Phone Care Team Providers Care Claims Adjuster Crop Name Role Phone GLYNN WHITE MD Unavailable [phone] Reason for Visit and Chief Complaint * PHONE CALL Plan of Treatment No Plan of Treatment Recorded Assessments Includes: Assessments from this encounter No Assessments Recorded Medical Equipment - Implanted Devices Includes: Current Devices No Medical Equipment Recorded Medications Administered Includes: Administered Medications from this encounter No Administered Medications Recorded Results Includes: Results discussed during this encounter No Results Recorded For Specified Dates History of Present Illness Includes: History of Present Illness from this encounter No History of Present Illness Recorded Social History No Social History Recorded - Smoking Status Unknown Medical History Includes: Medical History addressed during this encounter No Medical History Recorded Family History Includes: Family History addressed during this encounter No Family History Recorded Review of Systems Includes: Review of Systems from this encounter No Review of Systems Recorded Mental Status Includes: Mental Status from this encounter No Mental Status Recorded Functional Status Includes: Functional Status from this encounter No Functional Status Recorded Physical Exam Includes: Physical Exam from this encounter No Physical Exam Recorded Encounters Encounter Provider Location Date Check-In Time Check-Out Time Diagnosis * PHONE CALL [facility] DOCUMENTATION SPECIALIST 8 2:15PM 11:59PM Insurance Includes: Active Insurance Policies Plan Name Member ID Group # Subscriber Relationship Effect jovan Dates - [facility] CLAIM[facility] DEPT [id number] FRANCO RODRIGUEZ Self Clinical Notes Includes: Clinical Notes from this encounter No Clinical Notes Recorded
--- OUTSIDE RECORDS SUMMARY | 2024-04-17 13:49 | XMS_ITS | Encounter Summary ---
Author Organization [facility] Address [address] [facility] [place] [address] Care Team Providers Care Book Sewer Name Role Phone Diana Robles CENTRAL OFFICE MECHANIC[employer] Primary Care Provider Reason for Visit * Reason Comments SKIN PROBLEM left foot / dry patc hy skin / big toenail on right foor / discuss medication Encounter Details Date Type Department Care Team (Latest Contact Info) Description 05/04/2019 1:50 PM BRAKE LINER Office Visit [facility] [address] [place] [address] Wes Lainez MD [address] [facility] [address] [place] [address] Hyperhidrosis (Primary Dx); Tinea pedis of both feet Social History Tobacco Use Types Packs/Day Years Used Date Smoking Tobacco: Former Cigarettes Q uit: 05/04/2018 Smokeless Tobacco: Never Alcohol Use Standard Drinks/Week Comments Yes 0 (1 standard drink = 0.6 oz pur e alcohol) Sex and Gender Information Value Date Recorded Sex Assigned at Female 06/05/2021 9:56 PM BRAKE LINER Gender Identity Female 06/05/2021 9:56 PM BRAKE LINER Sexual Orientation Straight 06/05/2021 9: 56 PM BRAKE LINER documented as of this encounter Patient Instructions * Patient Instructions* Minh Cornelius MD - 05/04/2019 2:13 PM BRAKE LINER It was a pleasure seeing you in clinic today. We will plan to follow-up with you in 4-6 months. After today's visit: 1. Continue glycopyrrolate pills as needed. 2. Start topical aluminum chloride, apply to affected area prone to sweat once nightly. Once satisfactory, you can gradually decrease the frequency down to twice weekly (if this medication is not covered, you can get it for cheap on [employer]) 3. Start ketoconazole cream twice week to keep feet clear, then twice weekly for maintenance 4. You can also use xvkm-soo-rxfsaur zinc oxide and Zeasorb AF powder to keep feet dry and clear. E LINER documented in this encounter Progress Notes * Minh Cornelius MD - 05/04/2019 2:11 PM CST Chief Complaint Patient presents with ??? SKIN PROBLEM left foot / dry patchy skin / big toenail on right foor / discuss medication HPI: Esther Day a 28 year old female. LV: Concerns: Tinea pedis with hyperhidrosis Status: Improved, rash cleared with PO terbinafine and glycopyrrolate can control hyperhidrosis, but limited by dry mouth. Never got topical antifungal Current treatment: 1. Taking glycopyrrolate 3-4 tabs a week when needed, but does not take it everyday d/t dry mouth 2. Not using any topicals PE: No acute distress. Mood clear/affect appropriate. Alert and oriented. Mucous membranes moist. Sclera anicteric. Skin exam was conducted to include the scalp, face, lips/teeth, lids/conjunctiva, ears, neck, rightand left hands, bilateral LE was normal with the following exceptions: Minimal scales between the toes. Feet are dry, no excessive sweating during exam. Some onycholysis and yellow discoloration of R toenails. A/P: Esther was seen today for skin problem. Diagnoses and all orders for this visit: Hyperhidrosis of feet with previous Tinea pedis - also discussed onychomycosis Tx, pt not interested in long PO course currently ?? Counseled pt on Dx, etiology, disease course, and Tx options. ?? After thorough discussion of risks/benefit and expectations, pt wish to proceed with the plan of: 1. Continue glycopyrrolate up to 4 mg BID 2. Start ketoconazole cream BIW for maintenance or BID for active rash 3. Start topical aluminum chloride 20% up to nightly 4. May also add ZnO oint ?? Zeasorb power desiccant FU in 4-6 months, or sooner if concerns. Pt was reviewed and examined with Dr. Migel Cornelius MD PGY-4 Dermatology Resident 05/04/2019 4:14 PM E LINER * Wes Lainez MD - 05/04/2019 2:09 PM CST Patient seen and examined with Resident. Please see note for further details. I was present for thekey portions of any procedures performed. I confirm history, exam, assessment and plan with the following exceptions/additions: CC: rash HPI: Has hx rash since 2018--tinea pedis +/- onychomycosis +/- LSC, other Occurs feet--anam b/w toes, also top Itchy to burning when active Rash much better w/ oral terb (#30 disp), not much change to nails but not bothered by it. Never got clotrim cr. Prior trt/hx: -TAC 0.025% cr: disp 10/07/18 -medrol DP: disp 12/08/18: indic unk -12/25/18: Not contr. Steroid cr maybe seemed helpful at 1st, then recurred, maybe worse. Says used fungal cr & oral abx w/o help--names, dosages not recalled Some toenails seem to be changing too but hard to say b/c injures anam 5th toes freq (baby stewart, etc) PE: feet: lat ID spaces white macerated plaques, some of which extending to dorsal feet as dry scale--CORAZON+ classic hyphae; L foot 2 dorsal toes--more linear, lichenified plaques; some toenails a little thick, brittle appearing anam bilat 5th & R 1st Plan: not contr Rx clotrim cr bid until clear x1 wk, then biw for maint Rx oral terb 250mg qd x 1mo -05/04/19: above Has hx hyperhidrosis (HH) x yrs Occurs anam face, axillae Gets drenched when most active, doesn't have to be hot Impr Taking glyco 3-4 tabs/wk when needed--helpful but doesn't take qd d/t dry mouth. Prior trt/hx: -several family member HH -12/25/18: Not contr. Plan: rx glyco 1-4 mg bid Drysol would prob be too irritating for face -05/04/19: above ROS: No recent relevant illnesses/fevers or other skin complaints except noted otherwise. Relevant past medical history, social history and family history were reviewed, no changes or remarkable points unless otherwise noted. Hx tobacco PE: Gen: Alert, oriented, NAD, affect appropriate, pleasant Skin: Exam of the face, eyelids, scalp, lips, neck, bilat upper extr including nails and digits, bilat lower extr examined and unremarkable unless otherwise noted below: -feet: ID spaces clear -L foot 2 dorsal toes--linear, lichenified plaques -some toenails a little thick, brittle appearing anam 5th, R 1st Assessment/Plan Tinea pedis +/- onychomycosis -rash impr -rx keto cr bid until convincingly clear x1 wk, then biw for maintenance: -not interested in longer oral course for nails -educ condition, course, expectations, exacerbators, complications, associations, treatment options, reviewed a/e, expectations, time for effectiveness for all meds, importance of consistency, importance of topical maintenance therapy (very often comes back if not treated) Primary focal hyperhidrosis -impr, but oral limited by dry mouth -rx drysol up to qd -cont glyco 1-4 mg bid -educ condition, course, expectations, exacerbators, complications, associations, options, revieweda/e, expectations, time for effectiveness for all meds -future considerations: glycopyrronium wipes (Qbrexa), , oxybut 5 mg 1-3x/d, propantheline 15-60 mgqid, clonidine 0.1 mg bid, diltiazem, propranolol 10-30 mg b/f stressful event, nadolol 20-160 mg qd, atenolol 25-200 mg qd, iontophoresis,botox, topical anticholinergics (oxybut 10%gel [Gelnique] daily, scopolamine patch, atropine oint/soln 1-3x/d), hyperhidrosis clinic, endoscopic thoracic sympathectomy for axillary hyperhidrosis (Dr. Tyrone Arguelles) RTC 4 mo Wes Lainez MD E LINER documented in this encounter Plan of Treatment Not on file documented as of this encounter Visit Diagnoses Diagnosis Hyperhidrosis- Primary Primary focal hyperhidrosis Tinea pedis of both feet documented in this encounter Care Teams Book Sewer Relationship Specialty Start Date End Date Diana Robles, CENTRAL OFFICE MECHANIC[employer] [address] [facility] [address] Baker [address] [place] [address] [phone] PCP - General 10/22/18 documented as of this encounter
--- OUTSIDE RECORDS SUMMARY | 2024-04-17 13:49 | XMS_ITS | Clinical Summary ---
Author Organization [facility] Address [address] [place] [address] Care Team Providers Care Platen Press Operator Name Role Phone Diana Robles END FINDER FORMING DEPARTMENT-MUSIC WRITER Primary Care Provider Source Comments [facility],non-[facility] Affiliates and Associated Physician Practices is amultiple site organization consisting of ambulatory clinics and hospital sitesin [place], [place], [place] and [place]. This disclosure is being madepursuant to the Care Everywhere program and may not contain all information available regarding this patient. Last updated 18.[facility] Allergies Active Allergy Reactions Criticality Noted Date Comments Augmentin Rash Medium 12/25/2018 Cefaclor Rash Medium 03/11/2016 Codeine Itching 12/25/2018 Medications * Be aware that medications may not be up to date on this document. Alwaysverify current medications with the patient. Medication Sig Dispensed Refills Start Date End Date Status VITAMIN D, CHOLECALCIFEROL, PO Take 1 tablet by mouth Active cyanocobalamin (VITAMIN B-12) 250 MCG TABS Active SERTRALINE HCL PO Active cyclobenzaprine (FLEXERIL) 10 MG tablet Take 10 mg by mouth every 8 hours as needed 0 12/11/2018 Active ibuprofen (MOTRIN) 800 MG tablet TAKE 1 TABLET BY MOUTH THREE TIMES DAILY NEEDED WITH FOOD 0 12/08/2018 Active loratadine (CLARITIN) 10 MG tablet Take 10 mg by mouth once daily 10 11/22/2018 Active raNITIdine (ZANTAC) 150 MG tablet Take 150 mg by mouth 2 times daily 0 12/11/2018 Active terbinafine (LAMISIL) 250 MG tablet Take 1 tablet by mouth once daily 42 tablet 12/25/2018 Active Additional Information Patient not taking.Reported on 05/04/2019 glycopyrrolate (ROBINUL) 2 MG tablet Take up to 4mg bid, titrate per instructions, 30 DS 120 tablet 11 12/25/2018 Active clotrimazole (LOTRIMIN AF) 1 % cream Apply to rash bid when active, then twice weekly for maintenance 11 12/25/2018 Active Additional Information Patient not taking.Reported on 05/04/2019 ketoconazole (NIZORAL) 2 % creamIndications:T inea pedis of both feet Apply to itchy rash on feet twice daily, or to clear feet twice weekly for maintenance. 30 days supply. 60 g 11 05/04/2019 Active aluminum chloride (DRYSOL) 20 % solutionIndication s:Hyperhidrosis Apply to affected area on feet up to nightly. 30 DS. 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 Immunizations Name Administration Dates Next Due INFLUENZA 03/04/2019 Family History Medical History Relation Name Comments Asthma Neg Hx CVA Neg Hx Cancer - Breast Neg Hx Cancer - Other Neg Hx Cancer - Skin, Melanoma Neg Hx Cancer - Skin, Non Melanoma Neg Hx Eczema Neg Hx Hemophilia Neg Hx Psoriasis Neg Hx Social History Tobacco Use Types Packs/Day Years Used Date Smoking Tobacco: Former Cigarettes Q uit: 05/04/2018 Smokeless Tobacco: Never Alcohol Use Standard Drinks/Week Comments Yes 0 (1 standard drink = 0.6 oz pur e alcohol) Sex and Gender Information Value Date Recorded Sex Assigned at Female 06/05/2021 9:56 PM MUFFLE OPERATOR Gender Identity Female 06/05/2021 9:56 PM MUFFLE OPERATOR Sexual Orientation Straight 06/05/2021 9: 56 PM MUFFLE OPERATOR Last Filed Vital Signs Vital Sign Reading Time Taken Comments Blood Pressure 140/81 01/22/2019 1:50 PM CDT Pulse 81 01/22/2019 1:50 PM CDT Temperature 36.2 ??C (97.2 ??F) 01/22/2019 1:50 PM CD T Respiratory Rate - - Oxygen Saturation 98% 01/22/2019 1:50 PM CDT Inhaled Oxygen Concentration - - Weight 100.7 kg (222 lb) 01/22/2019 1:50 PM CDT Height 152.4 cm (5') 01/22/2019 1:50 PM CDT Body Mass Index 43.36 01/22/2019 1:50 PM CDT Plan of Treatment Health Maintenance Due Date Last Done Comments PAP SMEAR 1990 HIV SCREENING 12/11/2003 HEPATITIS C SCREENING 12/06/2006 DTAP/TDAP/TD VACCINES (1 - Tdap) 12/11/2007 HEPATITIS B VACCINE (1 of 3 - 19+ 3-dose series) 12/11/2007 DEPRESSION SCREENING 04/14/2023 COVID-19 VACCINE ( - 2023- season) 2023 INFLUENZA VACCINE (#1) 2023 2, 03/04/2019, 01/14/2019, Additional history exists ZOSTER VACCINE (1 of 2) 2038 HIB VACCINE Aged Out No longer eligi ble based on patient's age to complete this topic HPV VACCINE Aged Out No longer eligi ble based on patient's age to complete this topic MENINGOCOCCAL VACCINE Aged Out No zabrina emeterio eligible based on patient's age to complete this topic PNEUMOCOCCAL VACCINE Aged Out No long er eligible based on patient's age to complete this topic Care Teams Platen Press Operator Relationship Specialty Start Date End Date Diana Robles, END FINDER FORMING DEPARTMENT-MUSIC WRITER [address] [facility] Dr Baker [address] [place] [address] [phone] PCP - General 10/22/18
--- OUTSIDE RECORDS SUMMARY | 2024-04-17 13:49 | XMS_ITS | Referral Summary ---
Author Organization [facility] [employer] Address [address] [place] [address] Care Team Providers Care Advertising Layout Worker Name Role Phone Diana Robles HOTEL VALET ATTENDANT-UNDERGROUND DISTRIBUTION ENGINEER Primary Care Provider Source Comments [facility],non[facility] and Associated Physician Practices is amultiple site organization consisting of ambulatory clinics and hospital sitesin [place], [place], [place] and [place]. This disclosure is being madepursuant to the Care Everywhere program and may not contain all information available regarding this patient. Last updated 18.[facility] Allergies Active Allergy Reactions Criticality Noted Date [...] Name Administration Dates Next Due INFLUENZA 03/04/2019 Social History Tobacco Use Types Packs/Day Years Used Date Smoking Tobacco: Former Cigarettes Q uit: 05/04/2018 Smokeless Tobacco: Never Alcohol Use Standard Drinks/Week Comments Yes 0 (1 standard drink = 0.6 oz pur e alcohol) Sex and Gender Information Value Date Recorded Sex Assigned at Female 06/05/2021 9:56 PM MAGNET VALVE ASSEMBLER Gender Identity Female 06/05/2021 9:56 PM MAGNET VALVE ASSEMBLER Sexual Orientation Straight 06/05/2021 9: 56 PM MAGNET VALVE ASSEMBLER Last Filed Vital Signs Vital Sign Reading [...] 01/22/2019 1:50 PM CDT Plan of Treatment Not on file Care Teams Advertising Layout Worker Relationship Specialty Start Date End Date Diana Robles, HOTEL VALET ATTENDANT-UNDERGROUND DISTRIBUTION ENGINEER [address] [facility] [address] [place] [address] [phone] PCP - General 10/22/18
--- OUTSIDE RECORDS SUMMARY | 2024-04-17 13:49 | XMS_ITS | Data Portability ---
Author Organization [facility] CHAYODang Vargas Address [address] [place] [address] Care Team Providers Care Belly Dump Driver Name Role Phone CORRINE DEMPSEY Order Checker Assessment Encounter Date Assessment Date Assessment LastModified by Organization Details LastModified Time 01/10/2022 01/10/2022 38 weeks, gest DM has been diet controlled plan 39 week induction next week Not available 01/10/2022 11:39:38 02/12/2022 02/12/2022 ppd check is OK after third girl delivered two weks ago breast and bottle will start minipill Not available 02/12/2022 16:22:01 03/05/2022 03/05/2022 normal PP exam, no new issues on minipill while Not available 03/05/2022 14:29:51 03/21/2023 03/21/2023 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 ( torso/hips - not arms discussed. Not available 03/23/2024 11:00:38 Plan of Treatment Reminders Order Date Submit Date Provider Last Modified By Organization Details Last Modified Time Details Appointments None recorded. Lab urinalysis, dipstick 2021 022 In-Office Order, Internal Use Only DO Not Attach Compendium DO Not Attach Compendium, Do Not Delete/merge, [id number] 2 11:46:32 cytology report, thin prep, smear or scraping, cervical or vaginal 2021 022 [facility], [address], [address], [place], [address], 2 11:13:15 cytology report, thin prep, smear or scraping, cervical or vaginal 2022 023 [facility], [address], [address], [place], [address], 3 07:18:08 cytology report, thin prep, smear or scraping, cervical or vaginal 2023 024 [facility], [address], [address], [place], [address], 4 07:17:30 Referral None recorded. Procedures None recorded. Surgeries None recorded. Imaging None recorded. Medication Orders Ortho Micronor 0.35 mg tablet 2021 022 [facility] [address] [place], [address], 3 09:36:21 Zafemy 150 mcg-35 mcg/24 hr transdermal patch 2022 023 [facility] [address] [place], [address], 3 10:37:33 Zafemy 150 mcg-35 mcg/24 hr transdermal patch 2023 024 [facility] [address] [place], [address], 4 11:01:42 Patient TargetsNo targets recorded. Patient Instructions Encounter Date Encounter Id Patient Instructions Last Modified By Organization Details Last Modified Time 01/10/2022 [id number] gestational diabetes: care instructions Not available 01/10/2022 11:39:39 02/12/2022 [id number] depression after childbirth: care instructions Not available 02/12/2022 16:22:20 stress in parent s of infants: care instructions Not available 02/12/2022 16:22:19 edinburgh depression scale* Not available 02/12/2022 16:22:19 03/05/2022 [id number] edinburgh depression scale* Not available 03/05/2022 14:23:54 03/21/2023 [id number] Quitting Tobacco : Care Instructions urner Not available 03/21/2023 10:37:24 03/23/2024 [id number] A healthy lifestyle: care instructions gturner Not available 03/23/2024 10:47:20 Quitting Tobacco : Care Instructions gturner Not available 03/23/2024 10:47:20 Reason for Referral None Reported. Results Created Date Observation Date Name Description Value Unit Range Abnormal Flag Note LastModifiedBy Organization Detail LastModifiedTime 12/19/19 22 12/20/2021 STREP GP B LORETO strep gp B LORETO Negati ve negati ve Cente rs for Disea se Contr ol and Preve ntion (CDC) and Ameri can Congr ess of Obste trici ans and Gynec ologi sts (ACOG ) guide lines for preve ntion of perin atal group B strep tococ riana (GBS) disea se speci fy co-co llect ion of a vagin al and recta l swab speci men to maxim ize sensi tivit y of GBS detec tion. Per the CDC and ACOG, swabb ing both the lower vagin a and rectu m subst antia lly incre ases the yield of detec tion leander red with sampl ing the vagin a alone . Penic illin G, ampic illin , or cefaz serjio are indic ated for intra partu m proph ylaxi s of perin atal GBS colon izati on. Refle x susce ptibi lity testi ng shoul d be perfo rmed prior to use of clind amyci n only on GBS isola nessa from penic illin -missael rgic women who are consi dered a high risk for anaph ylaxi s. Treat ment with vanco mycin witho ut addit ional testi ng is christina casey if resis tance to clind amyshayy n is noted . Not Available [facility] ([facility]) [address], [place], [address], 12/20/2021 16:12:22 12/19/19 22 12/18/2021 urina lysis , dipst ick Protein Negati ve Not Available In-Office Order Internal Use Only DO Not Attach Compendium DO Not Attach Compendium, Do Not Delete/merge, 12/18/2021 09:10:44 12/19/19 22 12/18/2021 urina lysis , dipst ick Glucose Negati ve Not Available In-Office Order Internal Use Only DO Not Attach Compendium DO Not Attach Compendium, Do Not Delete/merge, 12/18/2021 09:10:44 01/02/20 22 01/01/2022 urina lysis , dipst ick Protein Negati ve Not Available In-Office Order Internal Use Only DO Not Attach Compendium DO Not Attach Compendium, Do Not Delete/merge, 01/01/2022 09:06:46 01/02/20 22 01/01/2022 urina lysis , dipst ick Glucose Negati ve Not Available In-Office Order Internal Use Only DO Not Attach Compendium DO Not Attach Compendium, Do Not Delete/merge, 01/01/2022 09:06:46 01/02/20 22 01/01/2022 urina lysis , dipst ick Appearance Clear Not Available In-Offi ce Order Internal Use Only DO Not Attach Compendium DO Not Attach Compendium, Do Not Delete/merge, 01/01/2022 09:06:46 01/02/20 22 01/01/2022 urina lysis , dipst ick Color Yellow Not Available In-Office Order Internal Use Only DO Not Attach Compendium DO Not Attach Compendium, Do Not Delete/merge, 01/01/2022 09:06:46 09/29/01/10/2022 urina lysis , dipst ick Protein Negati ve Not Available In-Office Order Internal Use Only DO Not Attach Compendium DO Not Attach Compendium, Do Not Delete/merge, [id number] 01/09/2022 15:12:18 01/11/20 22 01/10/2022 urina lysis , dipst ick Glucose Negati ve Not Available In-Office Order Internal Use Only DO Not Attach Compendium DO Not Attach Compendium, Do Not Delete/merge, [id number] 01/09/2022 15:12:18 02/13/20 22 02/12/2022 edinb urgh postn atal depre ssion scale * Score 0 Not Available In-Office Order Internal Use Only DO Not Attach Compendium DO Not Attach Compendium, Do Not Delete/merge, [id number] 02/12/2022 15:58:50 03/05/20 22 03/13/2022 IGP, RFX APTIM A HPV ASCU diagnosis: Commen t NEGAT ELENA FOR INTRA EPITH ELIAL FREDA Mac OR JENNA WARD . Not Available [facility] ([facility]) [address], [place], [address], 03/13/2022 11:13:15 03/05/20 22 03/13/2022 IGP, RFX APTIM A HPV ASCU specimen adequacy: Commen t Satis facto ry for evalu ation . Endoc ervic al and/o r squam ous metap lasti c cells (endo cervi riana compo nent) are prese nt. Not Available [facility] ([facility]) [address], [place], [address], 03/13/2022 11:13:15 03/05/20 22 03/13/2022 IGP, RFX APTIM A HPV ASCU clinician provided ICD10: Commen t Z39.2 Not Available [facility] ([facility]) [address], [place], [address], 03/13/2022 11:13:15 03/05/20 22 03/13/2022 IGP, RFX APTIM A HPV ASCU performed by: Mauricio Low rd Milldelores r, Cytot belgica knight (ASCP ) Not Available [facility] ([facility]) [address] [place], [address], 03/13/2022 11:13:15 03/05/20 22 03/13/2022 IGP, RFX APTIM A HPV ASCU . . Not Available [facility] ([facility]) [address] [place], [address], 03/13/2022 11:13:15 03/05/20 22 03/13/2022 IGP, RFX APTIM A HPV ASCU note: Mauricio knight The Pap smear is a scree darrick test desig rach to aid in the detec tion of destin ligna nt and malig nant condi tions of the uteri ne cervi x. It is not a diagn ostic proce dure and shoul d not be used as the sole means of detec ting cervi riana cance r. Both false -posi tive and false -nega tive repor ts do occur . Not Available [facility] ([facility]) [address] [place], [address], 03/13/2022 11:13:15 03/05/20 22 03/13/2022 IGP, RFX APTIM A HPV ASCU test methodology: Mauricio knight This liqui d based ThinP rep(R ) pap test was scree rach with the use of an image guide d syste m. Not Available [facility] ([facility]) [address] [place], [address], 03/13/2022 11:13:15 03/05/20 22 03/13/2022 IGP, RFX APTIM A HPV ASCU . Mauricio knight The HPV DNA refle x crite danilo were not met with this speci men resul t there fore, no HPV testi ng was perfo rmed. Not Available [facility] ([facility]) [address] [place], [address], 03/13/2022 11:13:15 03/05/2003/05/2022 edinb urgh postn atal depre ssion scale * Score 0 Not Available In-Office Order Internal Use Only DO Not Attach Compendium DO Not Attach Compendium, Do Not Delete/merge, [id number] 03/05/2022 13:55:14 03/21/20 23 03/25/2023 IGP, RFX APTIM A HPV ASCU diagnosis: Mauricio PARKER FOR INTRA EPITH ELIAL LESIO N OR JENNA WARD . Not Available [facility] ([facility]) [address], [place], [address], 03/26/2023 07:18:07 03/21/2003/25/2023 IGP, RFX APTIM A HPV ASCU specimen adequacy: Mauricio knight Satis factrupinder faustin for evalu ation . Endoc ervic al and/o r squam ous metap lasti c cells (endo cervi riana compo nent) are prese nt. Not Available [facility] ([facility]) [address], [place], [address], 03/26/2023 07:18:07 03/21/20 23 03/25/2023 IGP, RFX APTIM A HPV ASCU clinician provided ICD10: Mauricio knight Z01.4 19 Not Available [facility] ([facility]) [address], [place], [address], 03/26/2023 07:18:07 03/21/20 23 03/25/2023 IGP, RFX APTIM A HPV ASCU performed by: Mauricio nye, Cytot belgica knight (ASCP ) Not Available [facility] ([facility]) [address] [place], [address], 03/26/2023 07:18:07 03/21/20 23 03/25/2023 IGP, RFX APTIM A HPV ASCU . . Not Available [facility] ([facility]) [address] [place], [address], 03/26/2023 07:18:07 03/21/20 23 03/25/2023 IGP, RFX APTIM A HPV ASCU note: Commen t The Pap smear is a scree darrick test desig rach to aid in the detec tion of destin ligna nt and malig nant condi tions of the uteri ne cervi x. It is not a diagn ostic proce dure and shoul d not be used as the sole means of detec ting cervi riana cance r. Both false -posi tive and false -nega tive repor ts do occur . Not Available [facility] ([facility]) [address] [place], [address], 03/26/2023 07:18:07 03/21/20 23 03/25/2023 IGP, RFX APTIM A HPV ASCU test methodology: Commen t This liqui d based ThinP rep(R ) pap test was scree rach with the use of an image guide bereket bradley. Not Available [facility] ([facility]) [address] [place], [address], 03/26/2023 07:18:07 03/21/20 23 03/25/2023 IGP, RFX APTIM A HPV ASCU . Commen t The HPV DNA refle x crite danilo were not met with this speci men resul t there fore, no HPV testi ng was perfo rmed. Not Available [facility] ([facility]) [address] [place], [address], 03/26/2023 07:18:07 03/23/20 24 03/28/2024 IGP, RFX APTIM A HPV ASCU diagnosis: COMMEN T NEGAT ELENA FOR INTRA EPITH ELIAL LESIO N OR MALIG ED . Not Available [facility] ([facility]) [address] [place], [address], 03/29/2024 07:17:30 03/23/20 24 03/28/2024 IGP, RFX APTIM A HPV ASCU specimen adequacy: MAURICIO Knight Satis facto ry for evalu ation . Endoc ervic al and/o r squam ous metap lasti c cells (endo cervi riana compo nent) are prese nt. Not Available [facility] ([facility]) [address] [place], [address], 03/29/2024 07:17:30 03/23/20 24 03/28/2024 IGP, RFX APTIM A HPV ASCU clinician provided ICD10: MAURIICO Knight Z01.4 19 Not Available [facility] ([facility]) [address] [place], [address], 03/29/2024 07:17:30 03/23/20 24 03/28/2024 IGP, RFX APTIM A HPV ASCU performed by: MAURICIO owen, Cytoeugene cardenas t (ASCP ) Not Available [facility] ([facility]) [address] [place], [address], 03/29/2024 07:17:30 03/23/20 24 03/28/2024 IGP, RFX APTIM A HPV ASCU . . Not Available [facility] ([facility]) [address] [place], [address], 03/29/2024 07:17:30 03/23/20 24 03/28/2024 IGP, RFX APTIM A HPV ASCU note: MAURICIO Knight The Pap smear is a scree darrick test desig rach to aid in the detec tion of destin ligna nt and malig nant condi tions of the uteri ne cervi x. It is not a diagn ostic proce dure and shoul d not be used as the sole means of detec ting cervi riana cance r. Both false -posi tive and false -nega tive repor ts do occur . Not Available [facility] ([facility]) [address], [place], [address], 03/29/2024 07:17:30 03/23/20 24 03/28/2024 IGP, RFX APTIM A HPV ASCU test methodology: COMMEN T This liqui d based ThinP rep(R ) pap test was phong loyd with the use of an image guide bereket bradley. Not Available [facility] ([facility]) [address], [place], [address], 03/29/2024 07:17:30 03/23/20 24 03/28/2024 IGP, RFX APTIM A HPV ASCU . COMMEN T The HPV DNA refle x crite danilo were not met with this speci men resul t there fore, no HPV testi ng was perfo rmed. Not Available [facility] ([facility]) [address], [place], [address], 03/29/2024 07:17:30 Result Notes None recorded. Problems Name Problem SNOMED Code Status Onset Date Resolution Date Notes Provider Name and Address Organization Details Recorded Time Eruption 512950102 Active 2018 MIKALA Che Attn: Accounting ,[address] [place], [address] , [facility] 9 16:07:31 Mixed anxiety and depressive disorder 208577666 Active 2018 MIKALA Che Attn: Accounting ,[address] [place], [address] , [place] - [facility] 9 09:32:39 Heartburn 27917254 Active 2018 MIKALA Che Attn: Accounting ,[address] [place], [address] , [facility] - [facility] 9 09:32:40 Costal chondritis 34529108 Active Diana Banal, [employer]-C Attn: Accounting ,[address] [place], [address] , [facility] - [facility] 6 12:00:40 57945099 Completed 202102/12/2022 Ruth Culver, A null, [place] - [facility] 2 16:00:46 Smoker 33323880 Active 2023 Corrine Dempsey MD Attn: Accounting ,[address] [place], [address] , [facility] - [facility] 4 11:00:47 Low back pain 341816967 Active JEFF CheC Attn: Accounting ,[address] [place], [address] , [facility] - [facility] 6 12:00:40 Anxiety 26643827 Active JEFF CheC Attn: Accounting ,[address] [place], [address] , [facility] - [facility] 6 12:00:40 Strain of trapezius muscle 398780498 Active JEFF CheC Attn: Accounting ,[address] [place], [address] , [facility] - [facility] 6 12:00:40 Cervical syndrome 523732682 Active JEFF CheC Attn: Accounting ,[address] [place], [address] , [facility] - [facility] 6 12:00:40 Allergic cough 660965644 Active JEFF CheC Attn: Accounting ,[address] [place], [address] , [facility] - [facility] 6 14:29:52 Gastroesop hageal reflux disease without esophagiti s 794984344 Active JEFF CheC Attn: Accounting ,[address] [place], [address] , [facility] 6 14:29:52 16711263 Completed 201604/17/2017 GRANT Zabala [facility] 2 16:00:46 Nausea and vomiting 79191284 Active 2016 MICHAEL Calvillo [facility] 7 12:24:00 Problem Notes None recorded. Procedures Surgical History Date Name Laterality Status Provider Name and Address Organization Details Recorded Time 03/23/20 24 Date of Last Pap Smear completed Osiris Song RN [place] - [facility] 03/29/2024 11:24:11 02/22/20 21 Appendectomy completed GRANT Zabala [facility] 07/26/2021 12:00:53 02/22/20 21 repair of umbilical hernia completed GRANT Zabala [facility] 07/26/2021 12:00:45 04/14/19 00 Tonsillectomy completed Marychuy Leija MA [facility] 09/18/2016 12:15:43 Imaging Results None recorded. Procedure Notes None recorded. Medical Equipment None Reported. Allergies Allergen ID Allergen Name Allergen Category Reaction Reaction Severity Criticality Documentation Date Start Date Code Code System Note Provider Name and Address Organization Details Recorded Time 3290 Ceclor medicatio n rash Not available Not available 03/08/2014 38816 5 RxNorm MICHAEL Heart [facility] 4 17:38:50 3291 Augmentin medicatio n rash Not available Not available 03/08/2014 68814 2 RxNorm MICHAEL Heart [facility] 4 17:38:50 45841 codeine medicatio n Not available Not available Not available 09/18/2016 2670 RxNorm MICHAEL Ramírez [facility] 7 12:06:22 Medications Name Sig Start Date Stop Date Status Note LastModified by Organization Details LastModified Time penicillin V potassium 250 mg tablet 09/03 completed Not Available Not Available Not Available cyclobenzap rine 10 mg tablet Take 1 tablet every 8 hours by oral route as needed. 07/11 completed Not Available Not Available Not Available promethazin e-DM 6.25 mg-15 mg/5 mL oral syrup 08/22 completed Not Available Not Available Not Available venlafaxine ER 37.5 mg capsule,ext ended release 24 hr TAKE 1 CAPSULE BY MOUTH ONCE DAILY active Not Available Not Available No t Available venlafaxine ER 75 mg capsule,ext ended release 24 hr TAKE 1 CAPSULE BY MOUTH ONCE DAILY active Not Available Not Available No t Available paroxetine 10 mg tablet Take 1 tablet every day by oral route. 10/29 completed Not Available Not Available Not Available triamcinolo ne acetonide 0.5 % topical cream active Not Available Not Available Not Available azithromyci n 250 mg tablet active Not Available Not Available Not Available ibuprofen 800 mg tablet Take 1 tablet 3 times a day by oral route as needed. 07/11 completed Not Available Not Available Not Available hydrocodone 5 mg-acetamin ophen 325 mg tablet TAKE 1 TABLET BY MOUTH EVERY 8 HOURS NEEDED FOR MODERATE OR MORE SEVERE PAIN 03/05 completed Not Available Not Available Not Available ondansetron HCl 8 mg tablet TAKE ONE TABLET BY MOUTH EVERY 8 HOURS NEEDED FOR NAUSEA 11/17 completed Not Available Not Available Not Available fluconazole 200 mg tablet TAKE 1 TABLET BY MOUTH A ONE TIME DOSE 03/23 completed Not Available Not Available Not Available ondansetron HCl 4 mg tablet TAKE 1 TABLET BY MOUTH EVERY 8 HOURS NEEDED FOR NAUSEA AND VOMITING active Not Available Not Available No t Available prednisone 20 mg tablet TAKE 2 TABLETS BY MOUTH ONCE DAILY FOR 5 DAYS 03/23 completed Not Available Not Available Not Available betamethaso ne, augmented 0.05 % topical cream APPLY THIN LAYER OF CREAM TO LEFT LOWER LEG TOPICALLY TWICE DAILY NEEDED FOR ITCHING FOR 3 WEEKS. active Not Available Not Available No t Available desogestrel -e.estradio l 0.15 mg-0.02 mg(21)/e.es trad 0.01 mg(5) tablet 09/03 completed Not Available Not Available Not Available sertraline 100 mg tablet TAKE ONE TABLET BY MOUTH ONCE DAILY active Not Available Not Available No t Available terconazole 0.8 % vaginal cream 03/05 completed Not Available Not Available Not Available venlafaxine ER 150 mg capsule,ext ended release 24 hr TAKE 1 CAPSULE BY MOUTH ONCE DAILY active Not Available Not Available No t Available sulfamethox azole 800 mg-trimetho prim 160 mg tablet Take 1 tablet every 12 hours by oral route for 7 days. 07/11 completed Not Available Not Available Not Available omeprazole 40 mg capsule,del ayed release TAKE 1 CAPSULE BY MOUTH ONCE DAILY active Not Available Not Available No t Available tramadol 50 mg tablet Take 1 tablet every 6 hours by oral route as needed. 02/18 completed Not Available Not Available Not Available triamcinolo ne acetonide 0.1 % topical cream APPLY TOPICALLY TWICE DAILY TO RASH active Not Available Not Available No t Available baclofen 20 mg tablet Take 1 tablet 4 times a day by oral route as needed. 11/17 completed Not Available Not Available Not Available terconazole 80 mg vaginal suppository INSERT 1 SUPPOSITO RY VAGINALLY ONCE DAILY AT BEDTIME FOR 3 DAYS 03/05 completed Not Available Not Available Not Available Tessalon Perles 100 mg capsule Take 1 capsule 3 times a day by oral route for 30 days. 09/03 completed Not Available Not Available Not Available terbinafine HCl 250 mg tablet 08/22 completed Not Available Not Available Not Available famotidine 20 mg tablet TAKE 1 TABLET BY MOUTH TWICE DAILY 07/11 completed Not Available Not Available Not Available triamcinolo ne acetonide 0.025 % topical cream APPLY A THIN LAYER TO THE AFFECTED AREA(S) BY TOPICAL ROUTE 2 TIMES PER DAY-feet 02/09 completed Not Available Not Available Not Available dicyclomine 20 mg tablet TAKE 1 TABLET BY MOUTH EVERY 6 HOURS NEEDED FOR ABDOMINAL CRAMPING/ DIARRHEA active Not Available Not Available No t Available hydrocodone 7.5 mg-acetamin ophen 325 mg tablet 09/03 completed Not Available Not Available Not Available cephalexin 500 mg capsule TAKE 1 CAPSULE BY MOUTH EVERY 8 HOURS 07/11 completed Not Available Not Available Not Available paroxetine 30 mg tablet Take 1 tablet every day by oral route. 10/07 completed Not Available Not Available Not Available paroxetine 20 mg tablet Take 1 tablet every day by oral route. 02/05 completed Not Available Not Available Not Available ranitidine 150 mg tablet Take 1 tablet twice a day by oral route. 02/09 completed Not Available Not Available Not Available promethazin e 25 mg tablet TAKE 1 TABLET BY MOUTH EVERY 4 TO 6 HOURS active Not Available Not Available No t Available omeprazole 20 mg capsule,del ayed release TAKE ONE CAPSULE BY MOUTH ONCE DAILY 09/03 completed Not Available Not Available Not Available Drysol Dab-O-Matic 20 % topical solution APPLY TO AFFECTED AREA ON FEET NIGHTLY 07/11 completed Not Available Not Available Not Available diclofenac sodium 75 mg tablet,ozzie yed release TAKE ONE TABLET BY MOUTH TWICE DAILY FOR 30 DAYS active Not Available Not Available No t Available hydrocortis one 2.5 % topical cream APPLY A THIN LAYER TO THE AFFECTED AREA(S) BY TOPICAL ROUTE 2 TIMES PER DAY-foot 10/07 completed Not Available Not Available Not Available hydroxyzine HCl 25 mg tablet Take 1 tablet 3 times a day by oral route as needed. 02/09 completed Not Available Not Available Not Available ergocalcife rol (vitamin D2) 1,250 mcg (50,000 unit) capsule Take 1 capsule every week by oral route. 07/11 completed Not Available Not Available Not Available ibuprofen 600 mg tablet TAKE 1 TABLET BY MOUTH EVERY 8 HOURS NEEDED FOR MODERATE OR MORE SEVERE PAIN active Not Available Not Available No t Available levofloxaci n 750 mg tablet 03/05 completed Not Available Not Available Not Available methylpredn isolone 4 mg tablets in a dose pack FOLLOW PACKAGE DIRECTION S 07/11 completed Not Available Not Available Not Available ketorolac 60 mg/2 mL intramuscul ar solution give 2 ml Im x 1 now 02/09 completed Not Available Not Available Not Available ketoconazol e 2 % topical cream APPLY TO ITCHY RASH ON FEET TWICE DAILY OR TO CLEAR FEET TWICE WEEKLY FOR MAINTENAN CE 07/11 completed Not Available Not Available Not Available fluticasone propionate 50 mcg/actuati on nasal spray,suspe nsion USE 2 SPRAY(S) IN EACH NOSTRIL ONCE DAILY DIRECTED active Not Available Not Available No t Available sertraline 50 mg tablet TAKE ONE TABLET BY MOUTH ONCE DAILY 09/03 completed Not Available Not Available Not Available glycopyrrol ate 2 mg tablet TAKE 2 TABLETS BY MOUTH TWICE DAILY NEEDED (EXCESSIV E SWEATING) 03/05 completed Not Available Not Available Not Available loratadine 10 mg tablet TAKE 1 TABLET BY MOUTH ONCE DAILY 08/22 completed Not Available Not Available Not Available naproxen 500 mg tablet Take 1 tablet twice a day by oral route as needed for 30 days. 02/18 completed Not Available Not Available Not Available buspirone 15 mg tablet active Not Available Not Available Not Available oxycodone 5 mg tablet 08/22 completed Not Available Not Available Not Available azithromyci n 500 mg tablet Take 1 tablet every day by oral route for 3 days. 05/04 completed Not Available Not Available Not Available Sprintec (28) 0.25 mg-35 mcg tablet TAKE 1 TABLET BY MOUTH ONCE DAILY 07/11 completed Not Available Not Available Not Available ProAir HFA 90 mcg/actuati on aerosol inhaler Inhale 2 puffs every 4 hours by inhalatio n route. 11/17 completed Not Available Not Available Not Available OneTouch Delica Lancets 33 gauge USE TO CHECK GLUCOSE THREE TIMES DAILY active Not Available Not Available No t Available OneTouch Verio test strips USE STRIP TO CHECK GLUCOSE THREE TIMES DAILY active Not Available Not Available No t Available Jencycla 0.35 mg tablet TAKE 1 TABLET BY MOUTH ONCE DAILY 03/21 completed Not Available Not Available Not Available Zafemy 150 mcg-35 mcg/24 hr transdermal patch APPLY 1 PATCH TOPICALLY ONCE A WEEK FOR 21 DAYS 2023 active Not Available Not Available Not Avai lable Vitals Date Recorded Body height Body mass index (BMI) Systolic blood pressure Diastolic blood pressure Provider Name and Address Organization Details Last Updated DateTime 01/10/2022 162.56 cm 37.7 kg/m2 126 mm[Hg] 78 mm[Hg] Ruth Culver [facility] 01/10/2022 11:33:33 Date Recorded Body weight Provider Name an d Address Organization Details Last Updated DateTime 01/10/2022 60435.561333 g Corrine Dempsey MD Attn: [place], [address], [facility] 01/10/2022 11:38:56 Date Recorded Body height Body mass index (BMI) Body weight Systolic blood pressure Diastolic blood pressure Provider Name and Address Organization Details Last Updated DateTime 02/12/2022 162.56 cm 34.6 kg/m2 36190.86 2555 g 128 mm[Hg] 82 mm[Hg] GRANT Zabala [facility] 2 15:59:31 Date Recorded Body height Body mass index (BMI) Body weight Systolic blood pressure Diastolic blood pressure Provider Name and Address Organization Details Last Updated DateTime 03/05/2022 162.56 cm 35.4 kg/m2 37071.03 g 116 mm[Hg] 86 mm[Hg] RuthGRANT Samayoa [facility] 2 14:01:20 Date Recorded Body height Body mass index (BMI) Body weight Systolic blood pressure Diastolic blood pressure Provider Name and Address Organization Details Last Updated DateTime 03/21/2023 162.56 cm 33.7 kg/m2 44257.46 g 122 mm[Hg] 86 mm[Hg] Ruth Culver GRANT [facility] 3 10:33:47 Date Recorded Body height Body mass index (BMI) Body weight Systolic blood pressure Diastolic blood pressure Provider Name and Address Organization Details Last Updated DateTime 03/23/2024 162.56 cm 34.9 kg/m2 23877.68 g 117 mm[Hg] 73 mm[Hg] uRth Culvre Ben [facility] 4 10:42:49 Social History Question Answer Notes LastModified by Organizat ion Details LastModified Time Tobacco Smoking Status Current Some Day Smoker Ruth Culver [facility] 03/23/2024 10:44:14 What Is Your Level Of Alcohol Consumption? Occasional [email or web address] Information not available 08/23/2019 In The 14 Days Before Symptom Onset, Have You Had Close Contact With A Laboratory-confir med COVID-19 While That Case Was Ill? No Information not available 07/11/2021 In The 14 Days Before Symptom Onset, Have You Had Close Contact With A Person Who Is Under Investigation For COVID-19 While That Person Was Ill? No Information not available 07/11/2021 Have You Been To An Area Known To Be High Risk For COVID-19? No Information not available 07/11/2021 Do You Or Have You Ever Used E-cigarettes Or Vape? Never Used Electronic Cigarettes Information not available 03/23/2024 What Was The Date Of Your Most Recent Tobacco Screening? 03/23/2024 Information not available 03/23/2024 What Is Your Current Pack Years? 10packyears Information not available 07/11/2021 At What Age Did You Start Smoking Tobacco? 23 Information not available 07/11/2021 Do You Or Have You Ever Used Smokeless Tobacco? Never Used Smokeless Tobacco Information not available 03/23/2024 How Much Tobacco Do You Smoke? No Only When I'm Stressed Information not available 03/23/2024 Has Tobacco Cessation Counseling Been Provided? Yes Information not available 03/23/2024 On What Date Was Tobacco Cessation Counseling Provided? 03/23/2024 Information not available 03/23/2024 How Many Years Have You Smoked Tobacco? 6 Information not available 07/11/2021 Do You Or Have You Ever Used Any Other Forms Of Tobacco Or Nicotine? Yes Information not available 03/23/2024 Sex: Female Functional Status None recorded. Mental Status None recorded. Family History Relationship Description Onset Age of this Age Resolved Age Notes LastModified by Organization Details LastModified Time Mother Migraine [email or web address] Not available 01/10/2016 12:00:44 Medical History Condition Response Acid Reflux (GERD) Y Headaches Y GI Problems Y Gynecological History Statement/Question Response Sexually Active? Y On BCP's at Conception? N Menses Monthly Y STIs/STDs N Date of Last Pap Smear 03/23/2024 Sexual Problems? N Current Control Method Patch LMP Definite Obstetrics History GPAL:G 3 P 3 0 0 3 Type Value Full Term 3 Living 3 Total 3 Immunizations Vaccine Type Date Status Note Provider Nam e and Address Organization Details Recorded Time Hib, unspecified formulation 1 completed GRANT [place], [place] [facility] 12/18/2021 11:46:23 pneumococcal polysaccharide PPV23 1 completed [place] [facility] 12/18/2021 11:46:23 Hib, unspecified formulation 1 completed [place] [facility] 12/18/2021 11:46:23 Influenza, split virus, quadrivalent, PF 7 completed Ruth Abiola, [place] [facility] 12/18/2021 11:46:23 OPV 1 completed Ruth Abiola[place] [facility] 12/18/2021 11:46:23 OPV 4 completed Ruth Abiola[place] [facility] 12/18/2021 11:46:23 Influenza, split virus, quadrivalent, preservative 0 completed Ruth Abiola[place] [facility] 12/18/2021 11:46:23 Influenza, split virus, trivalent, preservative 9 completed Ruth Abiola[place] [facility] 12/18/2021 11:46:23 Influenza, split virus, trivalent, preservative 5 completed Ruth Abiola[place] [facility] 12/18/2021 11:46:23 MMR 2 completed Ruth Abiola[place] [facility] 12/18/2021 11:46:24 DTP 0 completed Ruth Abiola[place] [facility] 12/18/2021 11:46:24 DTP 9 completed Ruth Abiola[place] [facility] 12/18/2021 11:46:24 DTP 1 completed Ruth Abiola[place] [facility] 12/18/2021 11:46:24 OPV 0 completed Ruth Abiola[place] [facility] 12/18/2021 11:46:24 Influenza, split virus, quadrivalent, preservative 6 completed Ruth Abiola, [place] [facility] 12/18/2021 11:46:24 Influenza, split virus, quadrivalent, PF 1 completed Ruth Abiola[place] [facility] 12/18/2021 11:46:24 DTP 4 completed Ruth Abiola[place] [facility] 12/18/2021 11:46:24 DTP 0 completed Ruth Abiola, [place] [facility] 12/18/2021 11:46:24 Tdap 7 completed Ruth Abiola, [place] [facility] 12/18/2021 11:46:24 MMR 0 completed Ruth Abiola[place] [facility] 12/18/2021 11:46:24 OPV 9 completed Ruth Abiola[place] [facility] 12/18/2021 11:46:24 influenza, whole 6 completed Ruth Abiola, [place] [facility] 12/18/2021 11:46:24 OPV 0 completed Ruth Abiola, [place] [facility] 12/18/2021 11:46:24 Tdap 2 completed Ruth Abiola[place] [facility] 01/09/2022 15:13:28 Influenza, split virus, quadrivalent, PF 2 completed Ruth Abiola, [place] [facility] 02/12/2022 15:51:19 Influenza, split virus, trivalent, PF 4 completed Not Available [facility] 05/01/2019 02:41:29 Influenza, split virus, trivalent, PF 4 completed Not Available [facility] 05/01/2019 02:33:25 Tdap 7 completed Not Available [facility] 05/01/2019 02:34:49 Influenza, split virus, quadrivalent, preservative 8 completed Not Available [facility] 05/01/2019 02:40:57 Influenza, split virus, quadrivalent, preservative 9 completed Not Available [facility] 05/01/2019 02:43:03 Past Encounters Encounter ID Performer Location Encounter Start Date Encounter Closed Date Diagnosis/Indication Diagnosis SNOMED-CT Code Diagnosis ICD10 Code [id number] [facility] [address] [place] [address] 03/08/2014 17:18:05 03/14/2014 17:56:57 Costal chondritis 26458807 Administra tion of influenza vaccine 32379715 Influenza vaccine needed 4572803928 106 [id number] Ingris Johns MA [facility] [address] [place] [address] 07/12/2014 11:48:31 07/12/2014 12:36:47 Low back pain 505211742 Anxiety 00782492 [id number] Inés Koehler [facility] [address] [place] [address] 07/26/2014 11:41:36 07/26/2014 12:08:13 Anxiety 39253457 [id number] Adolfo Miller PA-C [facility] [address] [place] [address] 03/31/2015 11:17:43 03/31/2015 11:58:50 Low back pain 458358051 M54.5 Anxiety 96867467 F41.9 [id number] Adolfo Miller PA-C [facility] [address] [place] [address] 08/28/2015 14:39:27 08/28/2015 15:15:03 Strain of trapezius muscle 419208328 S46.811A [id number] Adolfo Miller PA-C [facility] [address] [place] [address] 09/04/2015 11:17:15 09/04/2015 13:07:40 Strain of trapezius muscle 459774964 S46.811A [id number] Adolfo Miller PA-C [facility] [address] [place] [address] 09/25/2015 16:01:59 09/25/2015 16:31:44 Cervical syndrome 613177535 M53.1 Low back pain 184590922 M54.5 [id number] MIKALA Che [facility] ([place] [address]) [address] [facility] [address] [place] [address] 01/10/2016 11:40:34 01/10/2016 14:32:57 Allergic cough 780888582 R05 Gastroesop hageal reflux disease without esophagitis 580674780 K21.9 [id number] MIKALA Che ([place] [address]) [address] [facility] [place] [address] 01/24/2016 11:58:47 01/24/2016 16:24:39 Low back strain 865081494 S39.012A [id number] MIKALA Che ([place] [address]) [address] [facility] [place] [address] 02/21/2016 15:50:41 02/22/2016 10:42:39 Low back pain 714819221 M54.5 [id number] MIKALA Che ([place] [address]) [address] [facility] [place] [address] 03/20/2016 15:30:58 03/21/2016 09:06:19 Viral gastroenteritis 846553820 A08.4 [id number] MD Garett Lenz ([place] [address]) [address] [facility] [place] [address] 09/18/2016 11:29:18 09/18/2016 14:53:21 Normal 95579929 Z34.91 [id number] MD Garett Lenz ([place] [address]) [address] [facility] [place] [address] 11/01/2016 15:04:50 11/01/2016 15:38:10 Normal 32901019 Z34.91 [id number] MD Garett Lenz ([place] [address]) [address] [facility] [place] [address] 11/22/2016 14:58:17 11/22/2016 16:22:01 Normal 19057152 Z34.91 [id number] MD Garett Lenz ([place] [address]) [address] [facility] [place] [address] 12/23/2016 11:20:52 12/23/2016 12:51:17 Normal 66909419 Z34.91 [id number] MD Garett Lenz ([place] [address]) [address] [facility] [place] [address] 01/14/2017 10:51:52 01/14/2017 11:59:43 Normal 88991353 Z34.83 [id number] [place] [address] [address] [facility] [place] [address] 02/04/2017 10:17:06 02/04/2017 13:26:48 Body mass index 30+ - obesity 249248898 Z68.34 Normal 2250771 2 Z34.83 [id number] [place] [address] [address] [facility] [place] [address] 02/18/2017 11:20:53 02/25/2017 16:53:36 Normal 84050432 Z34.83 [id number] [place] [address] [address] [facility] [place] [address] 03/04/2017 14:01:43 03/04/2017 16:04:14 Administration of diphtheria, pertussis, and tetanus vaccine 558890837 Z23 Body mass index 30+ - obesity 138890739 Z68.35 Normal 8551222 2 Z34.83 [id number] [place] [address] [address] [facility] [place] [address] 03/11/2017 14:56:39 03/12/2017 14:15:27 Body mass index 30+ - obesity 702744210 Z68.35 Normal 0659648 2 Z34.83 [id number] [place] [address] [address] [facility] [place] [address] 03/20/2017 14:41:42 03/21/2017 10:34:27 Body mass index 30+ - obesity 570609589 Z68.35 Normal 1337107 2 Z34.83 [id number] [place] [address] [address] [facility] [place] [address] 03/27/2017 14:57:43 03/27/2017 16:36:04 Normal [id number] Z34.83 [id number] [place] [address] [address] [facility] [place] [address] 04/17/2017 16:03:15 04/18/2017 15:10:11 Body mass index 30+ - obesity 196977264 Z68.33 depression 58 065227 O99.563 [id number] MD Garett Lenz [facility]omens ([facility] 205) [address] [facility] [place] [address] 05/15/2017 11:24:54 05/21/2017 11:02:34 Body mass index 30+ - obesity 105540172 Z68.33 care 16247543 8 Z39.0 [id number] MIKALA Che Womens ([facility] 205) [address] [facility] [place] [address] 05/21/2017 14:31:08 05/22/2017 09:03:00 Anxiety 75898376 F41.9 [id number] MIKALA Che [facility]omens ([facility] 205) [address] [facility] [place] [address] 06/09/2017 11:37:34 06/10/2017 11:58:37 Mass of back 795470295 R22.2 [id number] MIKALA Che [facility]omens ([facility] 205) [address] [facility] [place] [address] 06/19/2017 10:56:50 06/20/2017 12:24:37 Hypersomnia 28844913 G47.10 Anxiety 15836942 F41.9 [id number] MIKALA Che 14 IM [address] [facility] [place] [address] 09/18/2017 11:25:35 09/19/2017 09:56:05 Anxiety 95794956 F41.9 [facility] 693087441 R21 [id number] MIKALA Che 14 IM [address] [facility] [place] [address] 10/29/2017 11:40:16 10/29/2017 17:20:43 Anxiety 61731148 F41.9 [id number] MIKALA Che 14 IM [address] [facility] [place] [address] 12/20/2017 12:03:01 12/20/2017 12:26:00 [facility] 342122870 M67.795 [id number] MIKALA Che 14 IM [address] [facility] [place] [address] 02/05/2018 14:42:16 02/06/2018 12:46:04 Anxiety 96560045 F41.9 Allergic rhinitis 696029 04 J30.1 [id number] Jean-Paul Anderson MD [place] 14 IM [address] [facility] [place] [address] 03/16/2018 15:06:36 03/17/2018 10:30:09 Anxiety 69485246 F41.9 Administra tion of influenza vaccine 36817008 Z23 [id number] MIKALA Che 14 IM [address] [facility] [place] [address] 08/15/2018 12:01:17 08/17/2018 09:29:17 Mass of skin of back 7294245530 32646 R22.2 Body mass index 30+ - obesity 036231918 Z68.37 Tobacco de pendence syndrome 50197259 F17.012 [id number] MIKALA Che 14 IM [address] [facility] [place] [address] 10/07/2018 15:32:27 10/08/2018 09:25:37 Anxiety 00181928 F41.9 [facility] 140776302 R21 [id number] MIKALA Che 14 IM [address] [facility] [place] [address] 11/17/2018 11:23:06 11/18/2018 09:17:02 Gastroesophageal reflux disease without esophagitis 076405587 K21.9 Anxiety 89572903 F41.9 [id number] MIKALA Che 14 IM [address] [facility] [place] [address] 12/08/2018 11:12:28 2018 10:39:33 Spasmodic torticollis 66712509 G24.3 [id number] MIKALA Che 14 IM [address] [facility] [place] [address] 02/09/2019 14:45:59 02/10/2019 11:08:22 Administration of influenza vaccine 43383895 Z23 Mixed anxi ety and depressive disorder 454066382 F41.8 Heartburn 40545898 R12 [id number] MIKALA Che 14 IM [address] [facility] [place] [address] 05/11/2019 11:40:33 05/12/2019 12:23:28 Mixed anxiety and depressive disorder 883418882 F41.8 Heartburn 41859424 R12 Renewal of prescription 478541405 Z76.0 [id number] Samy Eldridge 14 IM [address] [facility] [place] [address] 08/23/2019 09:41:13 08/24/2019 09:32:19 Low back pain 340525144 M54.5 Gastroesop hageal reflux disease without esophagitis 539266350 K21.9 Mixed anxi ety and depressive disorder 782907819 F41.8 [id number] Samy Eldridge 14 IM [address] [facility] [place] [address] 11/22/2019 09:04:17 11/23/2019 11:19:58 Mixed anxiety and depressive disorder 088993174 F41.8 Gastroesop hageal reflux disease without esophagitis 790457079 K21.9 Adult heal th examination 987207050 Z00.00 Seasonal allergy 8454349 04 J30.2 [id number] MD Garett Lenz 14 OB [address] [facility] [place] [address] 07/11/2021 10:52:59 07/12/2021 09:25:29 Normal 23981183 Z34.83 Hyperemesi s gravidarum 29028930 O21.0 [id number] MD Garett Lenz 14 OB [address] [facility] [place] [address] 07/26/2021 11:27:48 07/27/2021 06:29:39 Normal 59275989 Z34.83 [id number] MD Garett Lenz 14 OB [address] [facility] [place] [address] 08/09/2021 14:03:57 08/10/2021 09:36:03 Normal 12082650 Z34.83 [id number] MD Garett Lenz 14 OB [address] [facility] [place] [address] 08/30/2021 11:29:05 08/31/2021 11:29:27 Normal 36679136 Z34.83 [id number] MD Garett Lenz 14 OB [address] [facility] [place] [address] 09/27/2021 13:58:05 09/28/2021 08:31:57 Normal 91434832 Z34.83 [id number] MD Garett Lenz 14 OB [address] [facility] [place] [address] 10/25/2021 09:48:26 10/26/2021 09:13:18 Normal 75854290 Z34.83 [id number] MD Garett Lenz 14 OB [address] [facility] [place] [address] 11/20/2021 14:47:31 11/21/2021 09:38:58 Normal 44513606 Z34.83 Gestationa l diabetes mellitus complicating 9240334819 9106 O24.003 [id number] MD Garett Lenz 14 OB [address] [facility] [place] [address] 12/04/2021 10:47:28 12/05/2021 09:15:15 Normal 51049306 Z34.83 Gestationa l diabetes mellitus 40994032 O24.988 [id number] MD Garett Lenz 14 [address] [facility] [place] [address] 12/18/2021 11:32:45 12/20/2021 11:21:50 Normal 37532303 Z34.83 Administra tion of diphtheria, pertussis, and tetanus vaccine 476461386 Z23 Gestationa l diabetes mellitus 41073513 O24.340 [id number] MD Garett Lenz [address] [place] [address] [place] [address] 01/01/2022 14:51:23 01/04/2022 06:46:26 Normal 29196835 Z34.83 Gestationa l diabetes mellitus 80586431 O24.263 [id number] MD Garett Lenz 14 OB [address] [facility] [place] [address] 01/10/2022 10:52:02 01/11/2022 07:27:06 Normal 89255156 Z34.83 Gestationa l diabetes mellitus 11910128 O24.486 [id number] MD Garett Lenz 14 OB [address] [facility] [place] [address] 02/12/2022 15:40:21 02/18/2022 09:55:21 care 145127349 Z39.2 depression 58 961650 O99.345 Contracept ion care management 256033311 Z30.9 [id number] MD Garett Lenz 14 OB [address] [facility] [place] [address] 03/05/2022 13:46:02 03/06/2022 17:02:32 care 200435655 Z39.2 [id number] MD Garett Lenz 14 OB [address] [facility] [place] [address] 03/21/2023 10:04:33 03/26/2023 16:00:37 Contraception care management 411184631 Z30.9 Smoker 12202649 F17.200 Gynecologi c examination 83858837 Z01.405 [id number] MD Garett Lenz 14 OB [address] [facility] [address] [place] [address] 03/23/2024 10:33:13 03/29/2024 13:19:06 Positive screening for depression on PHQ-9 (Patient Health Questionnaire 9) 8538760938 83100 Z13.31 Smoker 31450858 F17.200 Obesity 383795653 E66.9 Gynecologi c examination 62548214 Z01.419 Contracept ion care management 158923909 Z30.9 Health Concerns Section Related Observation LastModified by Organization Detai ls LastModified Time None Recorded Concern Status LastModified by Organization Details LastModified Time None Recorded Advance Directives Directive None Recorded Payers Encounter Date Sequence Insurance Name Policy Number Policy Hancock Covered Member ID Hancock Member ID Guarantor Name 01/10/2022 1 [facility] ON OR AFTER 10/12/20 (MEDICAID REPLACEMENT - HMO) Esther Day [id number] Esther Day 02/12/2022 1 [facility] ON OR AFTER 10/12/20 (MEDICAID REPLACEMENT - HMO) Esther Ayerser [id number] Esther Day 03/05/2022 1 [facility] ON OR AFTER 10/12/20 (MEDICAID REPLACEMENT - HMO) Esther Ayerser [id number] Esther Gongorancer 03/21/2023 1 [facility] ON OR AFTER 10/12/20 (MEDICAID REPLACEMENT - HMO) Esther Ayerser [id number] Esther Day 03/23/2024 1 [facility] ON OR AFTER 10/12/20 (MEDICAID REPLACEMENT - HMO) Esther Day [id number] Esther Day Notes Date Note Type Note Provider Name and Address Organization Details Recorded Time 03/21/2023 text/html Annual GYNReport ed bypatient.Menstrua l cycle:Normal menses Urinary symptoms:No hematuria; No incontinence Vulva:No genital lesion Vagina:Normal vaginal discharge Breast:No breast pain; No breast lump; No nipple discharge Current Contraception:Coffey sdermal patch Sexual complaints:No sexual complaints; No pain during intercourse; Normal libido Menopausal Symptoms:No menopausal symptoms; Normal vaginal lubrication Psychological symptoms:No depression; No anxiety; No PMDD Corrine Dempsey MD Attn: [address] [place], [address] 03/21/2023 10:46:25 03/23/2024 text/html Annual GYNReport ed bypatient.Menstrua l cycle:Normal menses Urinary symptoms:No hematuria; No incontinence Vulva:No genital lesion Vagina:Normal vaginal discharge Breast:No breast pain; No breast lump; No nipple discharge Current Contraception:Coffey sdermal patch Sexual complaints:No sexual complaints; No pain during intercourse; Normal libido Menopausal Symptoms:No menopausal symptoms; Normal vaginal lubrication Psychological symptoms:No depression; No anxiety; No PMDD Girls are 10,7, and 1 essentially a non smoker now. ( 1 pack per YEAR - only when really stressed discussed patches vs pills Corrine Dempsey MD Attn: [address] [place], [address], [place] [facility] 03/23/2024 11:01:57 OBGyn Episode Ob Episode Information Episode Created Date Number of Fetuses Patient Bloodtype Patient rh Status Prepregnancy Weight lbs Domestic Partner Domestic Partner Phone Father Name [employer] Specialist Status 07/12/19 22 1 B Positive CLOSED Fetus Data First Name Last Name Admitted to NICU Weight (g) Sex Living Outcome Pediatric Complications Fetus ID Race Codes Race Delivery Type Khalida Spenc er false 2919.99 85 F true Full Term 13019 2106-3 White Vaginal Breonna Calculation BREONNA Calculation Method Initial Breonna Date Initial Exam Date Initial Exam Provider Initial Ultrasound Date Last Menstrual Period Date Ultra Sound Weeks Gestation Conception by IVF Embryo Age at Transfer Date of Transfer 01/24/20 22 07/12/19 22 08/20/2021 04/18/2021 18 Eighteen To Twenty Week Breonna Update Ultra Sound Date Fundal Height At Umbil Quickening Date Ultra Sound Latest Weeks Gestation Final Breonna Confirmed By Final Breonna Confirmed Date Final Breonna Date Ultra Sound Latest Days Gestation 0 08/30/2021 01/24/20 22 0 Pre-socorro Flowsheet Flowsheet Date 07/11/2021 Walker Score Blood Edema Fundus Height Fundus Units Glucose Ketones Leukocytes Nitrite Labor Signs Protein Cervic Dilation Cervic Effacement Cervic Station 12 wks 0cm 0% -4 Type Weight in lbs Pre/Post Dialysis Refused With clothes 217.646222235936 BP Diastolic BP Location Tested BP Systolic BP Type 78 124 sitting Fetus Heart Rate Present A Absent Fetus Movement Comments Retroverted uterus making FH Ts difficult.Will return in 2 weeks for FHTsnausea not responding to Zofran, will try phenerganI managed to miss both her deliveries, Dr Crawford did #1, TK did #2.Induced with #2, 0630, epidural, delivered 2300 by TK (?) Flowsheet Date 07/26/2021 Walker Score Blood Edema Fundus Height Fundus Units Glucose Ketones Leukocytes Nitrite Labor Signs Protein Cervic Dilation Cervic Effacement Cervic Station Type Weight in lbs Pre/Post Dialysis Refused Stated 212.178154643808 BP Diastolic BP Location Tested BP Systolic BP Type 74 126 sitting Fetus Heart Rate Present A 154 Present Fetus Movement Comments Good FHTs today. c/w likely dates.Challenges as her entire household is just recovering from the flu.still on nausea meds as well.f/u 2 weeks. US after that. Flowsheet Date 08/09/2021 Walker Score Blood Edema Fundus Height Fundus Units Glucose Ketones Leukocytes Nitrite Labor Signs Protein Cervic Dilation Cervic Effacement Cervic Station none 16 wks none trace Type Weight in lbs Pre/Post Dialysis Refused With clothes 215.315265384219 BP Diastolic BP Location Tested BP Systolic BP Type 76 124 sitting Fetus Heart Rate Present A 147 Present Fetus Movement Comments doing well, much batter jose n last time. no new issuesUS in 2 weeks Flowsheet Date 08/30/2021 Walker Score Blood Edema Fundus Height Fundus Units Glucose Ketones Leukocytes Nitrite Labor Signs Protein Cervic Dilation Cervic Effacement Cervic Station trace 19 wks none neg Type Weight in lbs Pre/Post Dialysis Refused With clothes 210.676357871940 BP Diastolic BP Location Tested BP Systolic BP Type 80 126 sitting Fetus Heart Rate Present A 152 Present Fetus Movement Comments doing wellgirl #3 on US : Tatyana domingo EDC confirmed Flowsheet Date 09/27/2021 Walker Score Blood Edema Fundus Height Fundus Units Glucose Ketones Leukocytes Nitrite Labor Signs Protein Cervic Dilation Cervic Effacement Cervic Station none 22 wks none trace Type Weight in lbs Pre/Post Dialysis Refused With clothes 210.022747565630 BP Diastolic BP Location Tested BP Systolic BP Type 84 126 sitting Fetus Heart Rate Present A 145 Present Fetus Movement A Yes Comments doing well, active babydiscu ssed belly button / small hernia immediately superior. ( repaired in past)sugar test next visit here Flowsheet Date 10/25/2021 Walker Score Blood Edema Fundus Height Fundus Units Glucose Ketones Leukocytes Nitrite Labor Signs Protein Cervic Dilation Cervic Effacement Cervic Station none 25 cm Type Weight in lbs Pre/Post Dialysis Refused With clothes 213.558476330521 BP Diastolic BP Location Tested BP Systolic BP Type 80 124 sitting Fetus Heart Rate Present A 165 Present Fetus Movement A Yes Comments doing well, doing sugar test todaydealing with some poison elpidio from [employer]good spirits otherwise, will call with sugar results Flowsheet Date 11/20/2021 Walker Score Blood Edema Fundus Height Fundus Units Glucose Ketones Leukocytes Nitrite Labor Signs Protein Cervic Dilation Cervic Effacement Cervic Station none 28 cm none trace Type Weight in lbs Pre/Post Dialysis Refused With clothes 213.917871493127 BP Diastolic BP Location Tested BP Systolic BP Type 76 124 sitting Fetus Heart Rate Present A 143 Present Fetus Movement A Yes Comments Doing well, active baby.Fast ing sugars < 100 (80%), post prandials <140 (90%)back in 2 weeks Flowsheet Date 12/04/2021 Walker Score Blood Edema Fundus Height Fundus Units Glucose Ketones Leukocytes Nitrite Labor Signs Protein Cervic Dilation Cervic Effacement Cervic Station none 31 cm none neg Type Weight in lbs Pre/Post Dialysis Refused With clothes 212.682686487120 BP Diastolic BP Location Tested BP Systolic BP Type 78 120 sitting Fetus Heart Rate Present A 150 Present Fetus Movement A Yes Comments Doing well, active baby, goo d spirits.fastings<100 85% of time, 99% of PPs <140. Discussed food choicesf/u 2 weeks Flowsheet Date 12/18/2021 Walker Score Blood Edema Fundus Height Fundus Units Glucose Ketones Leukocytes Nitrite Labor Signs Protein Cervic Dilation Cervic Effacement Cervic Station none 33 cm none neg Type Weight in lbs Pre/Post Dialysis Refused With clothes 213.657143087972 BP Diastolic BP Location Tested BP Systolic BP Type 82 124 sitting Fetus Heart Rate Present A 154 Present Fetus Movement A Yes Comments doing well, active baby. Got TDAP and GBS today.sugars remain stable, with fastings almost all <100plan cervix check in 2 weeks Flowsheet Date 01/01/2022 Walker Score Blood Edema Fundus Height Fundus Units Glucose Ketones Leukocytes Nitrite Labor Signs Protein Cervic Dilation Cervic Effacement Cervic Station none 34 none neg 1cm 50% -3 Type Weight in lbs Pre/Post Dialysis Refused Weight 216.932856476305 BP Diastolic BP Location Tested BP Systolic BP Type 80 128 standing Fetus Heart Rate Present A 141 Present Fetus Movement A Yes Comments Doing well, active baby. Les l start weekly NSTs on L&Dcervix thinning, just 1.5 cm currentlylikely 39 week inductionsugars continue to be OK. No book here today, but pt reports almost all fastings<100, occ a PP has been 150, but usually when she takes it before 2 hr tatyana. Flowsheet Date 01/10/2022 Walker Score Blood Edema Fundus Height Fundus Units Glucose Ketones Leukocytes Nitrite Labor Signs Protein Cervic Dilation Cervic Effacement Cervic Station none 35 cm none neg Type Weight in lbs Pre/Post Dialysis Refused With clothes 219.681784819742 BP Diastolic BP Location Tested BP Systolic BP Type 78 126 sitting Fetus Heart Rate Present A 145 Present Fetus Movement A Yes Comments Doing well, sugars continue in good range.Plan 39 week induction next weekwill need COVID test before admissionlabor precautions/ kick countsNST today Flowsheet Date 02/12/2022 Walker Score Blood Edema Fundus Height Fundus Units Glucose Ketones Leukocytes Nitrite Labor Signs Protein Cervic Dilation Cervic Effacement Cervic Station Type Weight in lbs Pre/Post Dialysis Refused With clothes 201.505173701132 BP Diastolic BP Location Tested BP Systolic BP Type 82 128 sitting Fetus Heart Rate Present Fetus Movement Comments Menstrual History Last Menstrual Date Menses Monthly On Bcp Conception Prior Menses Frequency Hcg Plus Date Menarche Onset Age 0104/18/2021 true false Genetic Screening And Infection History Question Response Note Patient's Age Will Be 35 Years Or Older At Estim ated Date of Delivery false Thalassemia (Kazakh, Icelandic, Mediterranean, Or Background): MCV < 80 false Neural Tube Defect (Meningomyelocele, Spina Bifi da, Or Anencephaly) false Congenital Heart Defect false Down Syndrome false Jose F-Sachs (eg, Lutheran, Cajun, Vietnamese-Vatican Citizen) f alse Raúl Disease false Sickle Cell Disease Or Trait () false Hemophilia Or Other Blood Disorders false Muscular Dystrophy false Cystic Fibrosis false Rhodes's Chorea false Mental Retardation/Autism false If Yes, Was Person Tested For Fragile X? false Other Inherited Genetic Or Chromosomal Disorder false Maternal Metabolic Disorder (eg, Type 1 Diabetes , PKU) false Patient Or Baby's Father Had A Child With Defects Not Listed Above false Recurrent Loss, Or A Stillbirth false Medications (including Suppl ements, Vitamins, Herbs, OTC Drugs), Illicit/Recreational Drugs, Alcohol false If Yes, Agent(s) And Strength/Dosage false Any Other Genetic History false Live With Someone With TB Or Exposed To TB false Patient Or Partner Has History Of Genital Herpes false Rash Or Viral Illness Since Last Menstrual Perio d false History Of STD, Gonorrhea, Chlamydia, HPV, Syphi lis false Other Infection History false History of HIV false History of Hepatitis false Prior GBS-infected child false Delivery Information Delivery Date Delivery Type Labor Anesthesia Weeks Gestation Incision Type Labor Labor Length Hrs Delivered By Post Complications Tubal Sterilization Discharge Date Comments 2 Induce d [facility]-Ep id[facility] 39.6 false Corrine Dempsye MD false 01/24/2022 Discharge Information Feeding Method Contraceptive Method Maternal HG B and HCT Levels Combination Ob Episode Information Episode Created Date Number of Fetuses Patient Bloodtype Patient rh Status Prepregnancy Weight lbs Domestic Partner Domestic Partner Phone Father Name Forest Resource Specialist Status 09/19/19 17 1 CLOSED Fetus Data First Name Last Name Admitted to NICU Weight (g) Sex Living Outcome Pediatric Complications Fetus ID Race Codes Race Delivery Type 3033.16 [id number] F Full Term [id number] Vaginal Breonna Calculation BREONNA Calculation Method Initial Breonna Date Initial Exam Date Initial Exam Provider Initial Ultrasound Date Last Menstrual Period Date Ultra Sound Weeks Gestation Conception by IVF Embryo Age at Transfer Date of Transfer 0 Eighteen To Twenty Week Breonna Update Ultra Sound Date Fundal Height At Umbil Quickening Date Ultra Sound Latest Weeks Gestation Final Breonna Confirmed By Final Breonna Confirmed Date Final Breonna Date Ultra Sound Latest Days Gestation 0 0 Menstrual History Last Menstrual Date Menses Monthly On Bcp Conception Prior Menses Frequency Hcg Plus Date Menarche Onset Age Delivery Information Delivery Date Delivery Type Labor Anesthesia Weeks Gestation Incision Type Labor Labor Length Hrs Delivered By Post Complications Tubal Sterilization Discharge Date Comments 4 Del. by SC Discharge Information Feeding Method Contraceptive Method Maternal HG B and HCT Levels Ob Episode Information Episode Created Date Number of Fetuses Patient Bloodtype Patient rh Status Prepregnancy Weight lbs Domestic Partner Domestic Partner Phone Father Name Forest Resource Specialist Status 09/19/19 17 1 B Positive Del. @ [facility] Fetus Data First Name Last Name Admitted to NICU Weight (g) Sex Living Outcome Pediatric Complications Fetus ID Race Codes Race Delivery Type Danni Spenc er false 3288.54 2 F true Full Term [id number] White Vaginal Breonna Calculation BREONNA Calculation Method Initial Breonna Date Initial Exam Date Initial Exam Provider Initial Ultrasound Date Last Menstrual Period Date Ultra Sound Weeks Gestation Conception by IVF Embryo Age at Transfer Date of Transfer 04/02/20 15 09/19/19 15 11/09/2016 06/26/2016 17 Eighteen To Twenty Week Breonna Update Ultra Sound Date Fundal Height At Umbil Quickening Date Ultra Sound Latest Weeks Gestation Final Breonna Confirmed By Final Breonna Confirmed Date Final Breonna Date Ultra Sound Latest Days Gestation 0 myra 04/17/2017 017 0 Pre-socorro Flowsheet Flowsheet Date 09/18/2016 Walker Score Blood Edema Fundus Height Fundus Units Glucose Ketones Leukocytes Nitrite Labor Signs Protein Cervic Dilation Cervic Effacement Cervic Station 0cm 0% -4 Type Weight in lbs Pre/Post Dialysis Refused 193.58288494169 BP Diastolic BP Location Tested BP Systolic BP Type 76 112 sitting Fetus Heart Rate Present A 161 Present Fetus Movement Comments [place] deliver ed first girl for us in 2013 Flowsheet Date 11/01/2016 Walker Score Blood Edema Fundus Height Fundus Units Glucose Ketones Leukocytes Nitrite Labor Signs Protein Cervic Dilation Cervic Effacement Cervic Station none 18 wks Type Weight in lbs Pre/Post Dialysis Refused 196.097674170577 BP Diastolic BP Location Tested BP Systolic BP Type 66 104 sitting Fetus Heart Rate Present A 145 Present Fetus Movement A Yes Comments 18 weeks doing well, US befo re next visit Flowsheet Date 11/22/2016 Walker Score Blood Edema Fundus Height Fundus Units Glucose Ketones Leukocytes Nitrite Labor Signs Protein Cervic Dilation Cervic Effacement Cervic Station 20 wks Type Weight in lbs Pre/Post Dialysis Refused 199.206213855977 BP Diastolic BP Location Tested BP Systolic BP Type 76 106 sitting Fetus Heart Rate Present A 145 Present Fetus Movement Comments Girl #2 on US, Danni. no n ew issues Flowsheet Date 12/23/2016 Walker Score Blood Edema Fundus Height Fundus Units Glucose Ketones Leukocytes Nitrite Labor Signs Protein Cervic Dilation Cervic Effacement Cervic Station none 24 cm none neg Type Weight in lbs Pre/Post Dialysis Refused 201.142082658180 BP Diastolic BP Location Tested BP Systolic BP Type 75 108 sitting Fetus Heart Rate Present A 164 Present Fetus Movement A Yes Comments doing well, sugar test next timePicture day at school for oldest girl (3) Flowsheet Date 01/14/2017 Walker Score Blood Edema Fundus Height Fundus Units Glucose Ketones Leukocytes Nitrite Labor Signs Protein Cervic Dilation Cervic Effacement Cervic Station 27 cm Type Weight in lbs Pre/Post Dialysis Refused 198.819033816878 BP Diastolic BP Location Tested BP Systolic BP Type 76 114 sitting Fetus Heart Rate Present A 156 Present Fetus Movement A Yes Comments doing ok, sugar test today, no big issues Flowsheet Date 02/04/2017 Walker Score Blood Edema Fundus Height Fundus Units Glucose Ketones Leukocytes Nitrite Labor Signs Protein Cervic Dilation Cervic Effacement Cervic Station 29 cm Type Weight in lbs Pre/Post Dialysis Refused 199.063837972380 BP Diastolic BP Location Tested BP Systolic BP Type 76 122 sitting Fetus Heart Rate Present A 145 Present Fetus Movement A Yes Comments doing 3 hr GTT today, RTC in 2 weeks Flowsheet Date 02/18/2017 Walker Score Blood Edema Fundus Height Fundus Units Glucose Ketones Leukocytes Nitrite Labor Signs Protein Cervic Dilation Cervic Effacement Cervic Station none 31 cm Type Weight in lbs Pre/Post Dialysis Refused 204.527503618759 BP Diastolic BP Location Tested BP Systolic BP Type 64 114 sitting Fetus Heart Rate Present A 154 Present Fetus Movement A Yes Comments doing well, gBS next visit Flowsheet Date 03/04/2017 Walker Score Blood Edema Fundus Height Fundus Units Glucose Ketones Leukocytes Nitrite Labor Signs Protein Cervic Dilation Cervic Effacement Cervic Station none 33 cm none 1+ Type Weight in lbs Pre/Post Dialysis Refused 207.047151779973 BP Diastolic BP Location Tested BP Systolic BP Type 76 126 sitting Fetus Heart Rate Present A 153 Present Fetus Movement A Yes Comments doing well, no new issuescer vix check next timewent into spont labor one day overdue last time ( SC caught) Flowsheet Date 03/11/2017 Walker Score Blood Edema Fundus Height Fundus Units Glucose Ketones Leukocytes Nitrite Labor Signs Protein Cervic Dilation Cervic Effacement Cervic Station none 34 cm 1cm 10% -4 Type Weight in lbs Pre/Post Dialysis Refused 206.243219071432 BP Diastolic BP Location Tested BP Systolic BP Type 66 112 sitting Fetus Heart Rate Present A 143 Present Fetus Movement A Yes Comments GBS (-)cervix still long, ba by ballottable, labor reviewed Flowsheet Date 03/20/2017 Walker Score Blood Edema Fundus Height Fundus Units Glucose Ketones Leukocytes Nitrite Labor Signs Protein Cervic Dilation Cervic Effacement Cervic Station 35 cm Type Weight in lbs Pre/Post Dialysis Refused 204.19451486186 BP Diastolic BP Location Tested BP Systolic BP Type 72 122 sitting Fetus Heart Rate Present A 145 Present Fetus Movement A Yes Comments doing well, if still here ne xt week - cervix check03/31 indxn? Flowsheet Date 03/27/2017 Walker Score Blood Edema Fundus Height Fundus Units Glucose Ketones Leukocytes Nitrite Labor Signs Protein Cervic Dilation Cervic Effacement Cervic Station 35 cm 2cm 50% -3 Type Weight in lbs Pre/Post Dialysis Refused 202.967506008366 BP Diastolic BP Location Tested BP Systolic BP Type 78 122 sitting Fetus Heart Rate Present A 154 Present Fetus Movement A Yes Comments Plan induction Friday at [facility] 06/26/16 Flowsheet Date 04/17/2017 [place] Score Blood Edema Fundus Height Fundus Units Glucose Ketones Leukocytes Nitrite Labor Signs Protein Cervic Dilation Cervic Effacement Cervic Station Type Weight in lbs Pre/Post Dialysis Refused 192.569963945053 BP Diastolic BP Location Tested BP Systolic BP Type 78 118 sitting Fetus Heart Rate Present Fetus Movement Comments Menstrual History Last Menstrual Date Menses Monthly On Bcp Conception Prior Menses Frequency Hcg Plus Date Menarche Onset Age 0306/26/2016 Genetic Screening And Infection History Question Response Note Patient's Age Will Be 35 Yea rs Or Older At Estimated Date of Delivery false Thalassemia (Kazakh, Icelandic, Mediterranean, Or Background): MCV < 80 false Neural Tube Defect (Meningom yelocele, Spina Bifida, Or Anencephaly) false Congenital Heart Defect false Down Syndrome false Jose F-Sachs (eg, Lutheran, Cajun , Vietnamese-[place] Citizen) false Raúl Disease false Sickle Cell Disease Or Trait () false Hemophilia Or Other Blood Disorders false Muscular Dystrophy false Cystic Fibrosis false negative CF howell ier screen 09-30-12 Rhodes's Chorea false Mental Retardation/Autism false If Yes, Was Person Tested For Fragile X? false Other Inherited Genetic Or C hromosomal Disorder false Maternal Metabolic Disorder (eg, Type 1 Diabetes, PKU) false Patient Or Baby's Father Had A Child With Defects Not Listed Above false Recurrent Loss, Or A Stillbirth false Medications (including Suppl ements, Vitamins, Herbs, OTC Drugs), Illicit/Recreational Drugs, Alcohol false If Yes, Agent(s) And Strength/Dosage false Any Other Genetic History false Live With Someone With TB Or Exposed To TB false Patient Or Partner Has Histo ry Of Genital Herpes false Rash Or Viral Illness Since Last Menstrual Period false History Of STD, Gonorrhea, C hlamydia, HPV, Syphilis false Other Infection History false Delivery Information Delivery Date Delivery Type Labor Anesthesia Weeks Gestation Incision Type Labor Labor Length Hrs Delivered By Post Complications Tubal Sterilization Discharge Date Comments 7 Induce d Regional-Ep idural 39.5 false Hesham Peralta MD (O/C) 04/02/2017 Discharge Information Feeding Method Contraceptive Method Maternal HG B and HCT Levels Breast
--- OUTSIDE RECORDS SUMMARY | 2024-04-17 13:49 | XMS_ITS ---
Author Organization [facility] Address [address] [place] [address] Phone Care Team Providers Care Steam Pipe Fitter Name Role Phone GLYNN WHITE MD Unavailable [phone] Plan of Treatment No Plan of Treatment Recorded Assessments Includes: Assessments for all patient encounters No Assessments Recorded Medical Equipment - Implanted Devices Includes: Current and historical Devices No Medical Equipment Recorded Medications Administered Includes: Administered Medications in patient's chart No Administered Medications Recorded Results Includes: Results from 04/17/2023 through 04/17/2024 No Results Recorded For Specified Dates History of Present Illness History of Present Illness not supported for this document type No History of Present Illness Recorded Social History No Social History Recorded - Smoking Status Unknown Medical History Includes: Medical History in patient's chart No Medical History Recorded Family History Includes: Family History in patient's chart No Family History Recorded Review of Systems Review of Systems not supported for this document type No Review of Systems Recorded Mental Status No Mental Status Recorded Functional Status No Functional Status Recorded Physical Exam Physical Exam not supported for this document type No Physical Exam Recorded Insurance Includes: Active Insurance Policies Plan Name Member ID Group # Subscriber Relationship Effect jovan Dates 1 - [facility]PT [id number] FRANCO RODRIGUEZ Self Clinical Notes Includes: Signed Clinical Notes starting from 05/03/2022 No Clinical Notes Recorded
--- OUTSIDE RECORDS SUMMARY | 2024-04-17 13:49 | XMS_ITS | Patient Health Summary ---
Author Organization [facility] Address [address] [place] [address] Care Team Providers Care Military Aircraft Designer Name Role Phone Diana Robles RYAN-IN FLIGHT REFUELING OPERATOR Primary Care Provider Note from [facility],non-owned Affiliates and Associated Physician Practices is amultiple site organization consisting of ambulatory clinics and hospital sitesin [place], [place], [place] and [place]. This disclosure is being madepursuant to the Care Everywhere program and may not contain all information available regarding this patient. Last updated 18.[facility] Allergies * Augmentin(Rash) -Medium Criticality * Cefaclor(Rash) -Medium Criticality * Codeine(Itching) Medications * Be aware that medications may not be up to date on this document. Alwaysverify current medications with the patient. * VITAMIN D, CHOLECALCIFEROL, PO Take 1 tablet by mouth * cyanocobalamin (VITAMIN B-12) 250 MCG TABS * SERTRALINE HCL PO * cyclobenzaprine (FLEXERIL) 10 MG tablet(Started 12/11/2018) Take 10 mg by mouth every 8 hours as needed * ibuprofen (MOTRIN) 800 MG tablet(Started 12/08/2018) TAKE 1 TABLET BY MOUTH THREE TIMES DAILY NEEDED WITH FOOD * loratadine (CLARITIN) 10 MG tablet(Started 11/22/2018) Take 10 mg by mouth once daily 10 refills left * raNITIdine (ZANTAC) 150 MG tablet(Started 12/11/2018) Take 150 mg by mouth 2 times daily * terbinafine (LAMISIL) 250 MG tablet(Started 12/25/2018) Take 1 tablet by mouth once daily * glycopyrrolate (ROBINUL) 2 MG tablet(Started 12/25/2018) Take up to 4mg bid, titrate per instructions, 30 DS 11 refills remaining * clotrimazole (LOTRIMIN AF) 1 % cream(Started 12/25/2018) Apply to rash bid when active, then twice weekly for maintenance 11 refills left * ketoconazole (NIZORAL) 2 % cream(Started 05/04/2019) Apply to itchy rash on feet twice daily, or to clear feet twice weekly for maintenance. 30 days supply. 11 refills by 05/03/2020 * aluminum chloride (DRYSOL) 20 % solution(Started 05/04/2019) Apply to affected area on feet up to nightly. 30 DS. 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 Immunizations * INFLUENZA(Given 03/04/2019) Social History Tobacco Use Types Packs/Day Years Used Date Smoking Tobacco: Former Cigarettes Q uit: 05/04/2018 Smokeless Tobacco: Never Alcohol Use Standard Drinks/Week Comments Yes 0 (1 standard drink = 0.6 oz pur e alcohol) Sex and Gender Information Value Date Recorded Sex Assigned at Female 06/05/2021 9:56 PM RFID TECHNICIAN Gender Identity Female 06/05/2021 9:56 PM RFID TECHNICIAN Sexual Orientation Straight 06/05/2021 9: 56 PM RFID TECHNICIAN Last Filed Vital Signs Vital Sign Reading [...] Mass Index 43.36 01/22/2019 1:50 PM CDT Care Teams Military Aircraft Designer Relationship Specialty Start Date End Date Diana Robles, CHANCELLOR-IN FLIGHT REFUELING OPERATOR [address] [place] [address] [phone] PCP - General 10/22/18
--- OUTSIDE RECORDS SUMMARY | 2024-04-17 13:49 | XMS_ITS | Continuity of Care Document ---
Author Organization [facility] Chente DELGADILLO 12 OB Address [address] [place] [address] Care Team Providers Care Janitorial Supervisor Name Role Phone ROSELYN CORRINE External Grinder Tender Assessment Encounter Date Assessment Date Assessment LastModified by Organization Details LastModified Time 03/23/2024 03/23/2024 charge gang weigher exam benign will continue patch. ( torso/hips - not arms discussed. Not available 03/23/2024 11:00:38 Plan of Treatment Reminders Order Date Submit Date Provider Last Modified By Organization Details Last Modified Time Details Appointments None recorded. Lab cytology report, thin prep, smear or scraping, cervical or vaginal 2023 024 [facility], [address] [place] [address], [address], [place], [address], 07:17:30 Referral None recorded. Procedures None recorded. Surgeries None recorded. Imaging None recorded. Medication Orders Zafemy 150 mcg-35 mcg/24 hr transdermal patch 2023 024 [facility], [address], [place], [address], 11:01:42 Patient TargetsNo targets recorded. Patient Instructions Encounter Date Encounter Id Patient Instructions Last Modified By Organization Details Last Modified Time 03/23/2024 [id number] A healthy lifestyle: care instructions Not available 03/23/2024 10:47:20 Quitting Tobacco : Care Instructions Not available 03/23/2024 10:47:20 Reason for Referral None Reported. Problems Name Problem SNOMED Code Status Onset Date Resolution Date Notes Provider Name and Address Organization Details Recorded Time Eruption 007413479 Active 2018 MIKALA Che Attn: Accounting ,[address] [place], [address] , [facility] - [facility] 9 16:07:31 Mixed anxiety and depressive disorder 192050597 Active 2018 MIKALA Che Attn: Accounting ,[address] [place], [address] , [facility] - [facility] 9 09:32:39 Heartburn 79371326 Active 2018 MIKALA Che Attn: Accounting ,[address] [place], [address] , [facility] - [facility] 9 09:32:40 Costal chondritis 66922948 Active MIKALA Che Attn: Accounting ,[address] [place], [address] , [facility] - [facility] 6 12:00:40 85849745 Completed 202102/12/2022 Ruth Culver, [facility], [facility] 2 16:00:46 Smoker 09656228 Active 2023 Corrine Akers MD Attn: Accounting ,[address] [place], [address] , [facility] - [facility] 4 11:00:47 Low back pain 734169575 Active MIKALA Che Attn: Accounting ,[address] [place], [address] , [facility] - [facility] 6 12:00:40 Anxiety 25871824 Active MIKALA Che Attn: Accounting ,[address] [place], [address] , [facility] - [facility] 6 12:00:40 Strain of trapezius muscle 204595749 Active MIKALA Che Attn: Accounting ,[address] [place], [address] , [place] [facility] 12:00:40 Cervical syndrome 351513531 Active MIKALA Che Attn: Accounting ,[address] [place], [address] , [place] [facility] 12:00:40 Allergic cough 455059604 Active MIKALA Che Attn: Accounting ,[address] [place], [address] , [place] [facility] 14:29:52 Gastroesop hageal reflux disease without esophagiti s 129614485 Active MIKALA Che Attn: Accounting ,[address] [place], [address] , [facility] - [facility] 6 14:29:52 15846290 Completed 201604/17/2017 GRANT Zabala [facility] 16:00:46 Nausea and vomiting 59398217 Active 2016 MICHAEL Calvillo [place] - [facility] 7 12:24:00 Problem Notes None recorded. Procedures Surgical History Date Name Laterality Status Provider Name and Address Organization Details Recorded Time 03/23/20 24 Date of Last Pap Smear completed Osiris Song RN [facility] 03/29/2024 11:24:11 02/22/20 21 Appendectomy completed GRANT Zabala [facility] 07/26/2021 12:00:53 02/22/20 21 repair of umbilical hernia completed GRANT Zabala [facility] 07/26/2021 12:00:45 04/14/19 00 Tonsillectomy completed Marychuy Leija MA [facility] 09/18/2016 12:15:43 Imaging Results None recorded. Procedure Notes None recorded. Medical Equipment None Reported. Allergies Allergen ID Allergen Name Allergen Category Reaction Reaction Severity Criticality Documentation Date Start Date Code Code System Note Provider Name and Address Organization Details Recorded Time 3290 Ceclor medicatio n rash Not available Not available 03/08/2014 5 RxNorm MICHAEL Heart, [facility] 4 17:38:50 3291 Augmentin medicatio n rash Not available Not available 03/08/2014 79285 2 RxNorm MICHAEL Heart, [place] - [facility] 4 17:38:50 77268 codeine medicatio n Not available Not available Not available 09/18/2016 2670 RxNorm Marychuy fajardo MA null, [facility] 7 12:06:22 Medications Name Sig Start Date [...] Updated DateTime 03/23/2024 162.56 cm 34.9 kg/m2 77242.68 g 117 mm[Hg] 73 mm[Hg] GRANT Zabala [place] [facility] 10:42:49 Social History Question Answer Notes LastModified by Organizat ion Details LastModified Time Tobacco Smoking Status Current Some Day Smoker GRANT Zabala [place], [place] [facility] 03/23/2024 10:44:14 What Is Your Level Of [...] Recorded Time Hib, unspecified formulation 1 completed Ruth Culver, R[facility] [place] [facility] 12/18/2021 11:46:23 pneumococcal polysaccharide PPV23 1 completed Ruth Culver, [place] [facility] 12/18/2021 11:46:23 Hib, unspecified formulation 1 completed Ruth Culver, [place] [facility] 12/18/2021 11:46:23 Influenza, split virus, quadrivalent, PF 7 completed Ruth Culver [place] [facility] 12/18/2021 11:46:23 OPV 1 completed Ruth Culver [place] [facility] 12/18/2021 11:46:23 OPV 4 completed Ruth Culver [place] [facility] 12/18/2021 11:46:23 Influenza, split virus, quadrivalent, preservative 0 completed Ruth Culver [place] [facility] 12/18/2021 11:46:23 [...] - [facility] 12/18/2021 11:46:24 DTP 4 completed Rtuh Abiola, [place] [facility] 12/18/2021 11:46:24 DTP 0 completed Ruth Abiola, [place] [facility] 12/18/2021 11:46:24 Tdap 7 completed Ruth Abiola, [place] [facility] 12/18/2021 11:46:24 MMR 0 completed Ruth Abiola, [place] [facility] 12/18/2021 11:46:24 OPV 9 completed Ruth Abiola, [place] [facility] 12/18/2021 11:46:24 influenza, whole 12/12/200 6 completed Ruth Abiola, [place] [facility] 12/18/2021 11:46:24 OPV 0 completed Ruth Abiola, [place] [facility] 12/18/2021 11:46:24 Tdap 2 completed Ruth Abiola, [place] [facility] 01/09/2022 15:13:28 Influenza, split virus, quadrivalent, PF 2 completed Ruth Abiola, [place] [facility] 02/12/2022 15:51:19 Influenza, split virus, trivalent, PF 4 completed Not Available [facility] 05/01/2019 02:41:29 Influenza, split virus, trivalent, PF 4 completed Not Available [facility] 05/01/2019 02:33:25 Tdap 7 completed Not Available [facility] 05/01/2019 02:34:49 Influenza, split virus, quadrivalent, preservative 8 completed Not Available [facility] 05/01/2019 02:40:57 Influenza, split virus, quadrivalent, preservative 9 completed Not Available [facility] 05/01/2019 02:43:03 Past Encounters Encounter ID Performer Location Encounter Start Date Encounter Closed Date Diagnosis/Indication Diagnosis SNOMED-CT Code Diagnosis ICD10 Code [id number] MD Chente Lenz [address] [address] 03/23/2024 10:33:13 03/29/2024 13:19:06 Positive screening for depression on PHQ-9 (Patient Health Questionnaire 9) 7084386238 66185 Z13.31 Smoker 37341256 F17.200 Obesity 289720509 E66.9 Gynecologi c examination 51736071 Z01.419 Contracept ion care management 457805841 Z30.9 Health Concerns Section Related Observation LastModified by Organization Detai ls LastModified Time None Recorded Concern Status LastModified by Organization Details LastModified Time None Recorded Payers Encounter Date Sequence Insurance Name Policy Number Policy H[place] Covered Member ID Hancock Member ID Guarantor Name 03/23/2024 1 [facility] - DOS ON OR AFTER 20 (MEDICAID REPLACEMENT - HMO) Esther Day [id number] Esther Day Notes Date Note Type Note Provider Name and Address Organization Details Recorded Time 03/23/2024 text/html Annual GYNReport ed bypatient.Menstrua l [...] really stressed discussed patches vs pills Corrine Akers MD Attn: Accounting[address] [place], [address], [facility] 03/23/2024 11:01:57 OBGyn Episode No OBEpisode recorded.
--- OUTSIDE RECORDS SUMMARY | 2024-04-17 13:50 | XMS_ITS | Encounter Summary ---
Author Organization [facility] Address [address] [place] [address] Phone Care Team Providers Care Public Address Announcer Name Role Phone Kj Merlos MD Primary Care Provider [phone] Tatiana Logan APRN, DROP BOARD WORKER Unavailable Karen Andino APRN, DROP BOARD WORKER Unavailable Reason for Visit * Reason Comments Medication Refill Encounter Details Date Type Department Care Team (Late st Contact Info) Description 04/03/2024 Refill [facility] - G[facility]enterology - [place] [address] [place] [address] Tatiana Logan APRN, DROP BOARD WORKER [address] [place], [place] [id number] Medication Refill Social History Tobacco Use Types Packs/Day Years Used Date Smoking Tobacco: Light Smoker Cigarettes Smokeless Tobacco: Never Comments:1-2 cigarettes a da y Alcohol Use Standard Drinks/Week Comments Yes 0 (1 standard drink = 0.6 oz pur e alcohol) Rare [facility] Utilities Answer Date Recorded In the past 12 months has e Schedulicity, gas, oil, or water company threatened to shut off services in your home? Patient declined 01/15/2024 Social Connection and Isolat ion Panel [NHANES] Answer Date Recorded In a typical week, how many times do you talk on the phone with family, friends, or neighbors? More than three times a week 01/15/2024 How often do you get togethe r with friends or relatives? More than three times a week 01/15/2024 How often do you attend chur or anabaptism services? Patient declined 01/15/2024 Do you belong to any clubs o r organizations such as quaker groups, unions, fraternal or athletic groups, or school groups? Patient declined 01/15/2024 How often do you attend meet ings of the clubs or organizations you belong to? More than 4 times per year 01/15/2024 Are you , , di vorced, , never , or living with a partner? 01/15/2024 AUDIT-C Answer Date Recorded Q1: How often do you have a drink containing alc ohol? Monthly or less 01/15/2024 Q2: How many drinks containi ng alcohol do you have on a typical day when you are drinking? 1 or 2 01/15/2024 Q3: How often do you have si x or more drinks on one occasion? Never 01/15/2024 Overall Financial Resource Strain (CARDIA) Answe r Date Recorded How hard is it for you to pa y for the very basics like food, housing, medical care, and heating? Patient declined 01/15/2024 PHQ-2 Answer Date Recorded Total Score - Questions 1-9 8 06/2023 [facility] of Occupat ional Health - Occupational Stress Questionnaire Answer Date Recorded Do you feel stress - tense, restless, nervous, or anxious, or unable to sleep at night because your mind is troubled all the time - these days? To some extent 01/15/2024 Exercise Vital Sign Answer Date Recorde d On average, how many days pe r week do you engage in moderate to strenuous exercise (like a brisk walk)? 7 days 01/15/2024 On average, how many minutes do you engage in exercise at this level? 120 min 01/15/2024 Hunger Vital Sign Answer Date Recorded Within the past 12 months, y ou worried that your food would run out before you got the money to buy more. Patient declined Within the past 12 months, t he food you bought just didn't last and you didn't have money to get more. Patient declined 06/2023 PRAPARE - Transportation Answer Date Re corded In the past 12 months, has l ack of transportation kept you from medical appointments or from getting medications? Patient declined 01/15/2024 In the past 12 months, has l ack of transportation kept you from meetings, work, or from getting things needed for daily living? Patient declined 01/15/2024 Housing Stability Vital Sign Answer Todd e Recorded In the last 12 months, was t here a time when you were not able to pay the mortgage or rent on time? Yes 09/15/2023 In the last 12 months, how many places have you lived? 1 09/15/2023 In the last 12 months, was t here a time when you did not have a steady place to sleep or slept in a custodial (including now)? No 09/15/2023 Housing Stability Vital Sign Answer Todd e Recorded In the last 12 months, was t here a time when you were not able to pay the mortgage or rent on time? Patient declined 01/15/20 24 Number of Times Moved in the Last Year Not on fi le 01/15/2024 Homeless in the Last Year Not on file 2023 Education Answer Date Recorded What is the highest level of school you have completed or the highest degree you have received? 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 R OPERATOR HEAD documented in this encounter Plan of Treatment Upcoming Encounters Date Type Department Care Team (Late st Contact Info) Description 04/28/2024 10:00 AM DRIER OPERATOR HEAD Appointment [facility] Cardiology Stress [facility] [place] [address] Karen Andino APRN, DROP BOARD WORKER [address] [place] [address] Discharge Disposition: Discharged to home or Selfcare 06/02/2024 10:00 AM DRIER OPERATOR HEAD Office Visit [facility] - Family [facility] [address] [place] [address] Kelin Castle, PAC [address] [place] [address] documented as of this encounter Visit Diagnoses Diagnosis Diarrhea, unspecified type Abdominal cramping Abdominal pain, unspecified site documented in this encounter Additional Health Concerns Assessment Noted Time PHQ-9 Depression Total Score: 8 01/15/20 24 4:34 PM CDT documented as of this encounter Care Teams Public Address Announcer Relationship Specialty Start Date End Date Kj Merlos MD [address] [address] PCP - General Family Medicine 04/09/21 Tatiana Logan APRN, DROP BOARD WORKER [address] [place] [address] Nurse Practitioner Advanced Practice Nurse 01/29/24 Karen Andino APRN, DROP BOARD WORKER [address] [place] [address] Nurse Practitioner Cardiology 03/29/24 documented as of this encounter
--- OUTSIDE RECORDS SUMMARY | 2024-04-17 13:50 | XMS_ITS | Encounter Summary ---
Author Organization [facility] Address [address] [place] [address] Phone Care Team Providers Care Hammerer Tab Name Role Phone Kj Merlos MD Primary Care Provider [phone] Tatiana Logan APRN, OFFAL WORKER Unavailable Karen Andino APRN, OFFAL WORKER Unavailable Reason for Referral * Radiology Services (Routine) - Pending Review Specialty Diagnoses / Procedures Referred By Ariaan knight Referred To Contact Radiology Diagnoses Chest pain, unspecified type Procedures ADULT CV STRESS TREADMILL ECHO Karen Andino APRN, SUZY [address] [place] [address] Phone: tel: fax: Referral ID Status Reason Start Date Expiration Date V isits Requested Visits Authorized [id number] Pending Review 03/29/2024 1 1 H MIXING MACHINE OPERATOR Reason for Visit * Reason Comments Abnormal Study/Test Result EKG * Consult, Test & Initiate Treatment (Routine) - Closed Specialty Diagnoses / Procedures Referred By Ariana knight Referred To Contact Diagnoses Abnormal EKG Kelin Castle, PAC [address] [place] [address] Phone: tel: fax: [facility] - Cardiology [facility] [address] [place] [address] Phone: tel: fax: Referral ID Status Reason Start Date Expiration Date Visits Re quested Visits Authorized [id number] Closed 02/10/2024 1 1 Encounter Details Date Type Department Care Team (Late st Contact Info) Description 03/29/2024 9:00 AM DOUGH MIXING MACHINE OPERATOR [facility] [address] [place] [address] Kelin Castle, PAC [address] [place] [address] Karen Andino APRN, OFFAL WORKER [address] [place] [address] Chest pain, unspecified type (Primary Dx); Abnormal EKG; Hyperlipidemia, unspecified hyperlipidemia type; Tobacco dependence syndrome; Morbid obesity (HCC) Discharge Disposition: Discharged to home or Selfcare Social History Tobacco Use Types Packs/Day Years Used Date Smoking Tobacco: Light Smoker Cigarettes Smokeless Tobacco: Never Tobacco Cessation:Ready to Q uit: Not Asked; Counseling Given: Not Answered Comments:1-2 cigarettes a day Alcohol Use Standard Drinks/Week Comments Yes 0 (1 standard drink = 0.6 oz pur e alcohol) Rare [facility] Utilities Answer Date Recorded In the past 12 months has [employer], or water [employer] threatened to shut off services in your [...] week 01/15/2024 How often do you attend [facility] or anabaptism services? Patient declined 01/15/2024 Do you belong to any clubs o r organizations such as religion groups, unions, fraternal or athletic groups, or [...] Total Score - Questions 1-9 8 06/2023 [facility] Occupat ional [facility] - Occupational Stress Questionnaire Answer Date Recorded [...] place to sleep or slept in a alf (including now)? 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 file Not on file documented as of this encounter Last Filed Vital Signs Vital Sign Reading Time Taken Comments Blood Pressure 124/65 03/29/2024 9:01 AM DOUGH MIXING MACHINE OPERATOR Pulse 77 03/29/2024 9:01 AM DOUGH MIXING MACHINE OPERATOR Temperature 36.2 ??C (97.2 ??F) 03/29/2024 9:01 AM CS T Respiratory Rate 22 03/29/2024 9:01 AM DOUGH MIXING MACHINE OPERATOR Oxygen Saturation 98% 03/29/2024 9:01 AM DOUGH MIXING MACHINE OPERATOR Inhaled Oxygen Concentration - - Weight 90.7 kg (200 lb) 03/29/2024 9:01 AM DOUGH MIXING MACHINE OPERATOR Height 152.4 cm (5') 03/29/2024 9:01 AM DOUGH MIXING MACHINE OPERATOR Body Mass Index 39.06 03/29/2024 9:01 AM DOUGH MIXING MACHINE OPERATOR documented in this encounter Patient Instructions * Patient Instructions* Karen Andino APRN, OFFAL WORKER - 03/29/2024 9:00 AM DOUGH MIXING MACHINE OPERATOR -I have ordered a stress test for you. The hospital will call to set this up. I will call you with the results. -Have an updated lipid panel drawn now. H MIXING MACHINE OPERATOR documented in this encounter Progress Notes * Karen Andino APRN, CNP - 03/29/2024 9:00 AM CST HISTORY AND PHYSICAL Assessment & Plan: 1. Abnormal EKG -normal sinus rhythm -changes consistent with LVH -evidence of possible inferior infarct, although echo normal -echocardiogram with normal LV function and size, no wall motion abnormalities identified -LVEF 60-65% -no significant valve abnormalities 2. Chest pain, unspecified type -chest tightness accompanied with left shoulder pain and shortness of breath -atypical in nature -risk factors include obesity, hyperlipidemia, tobacco use -will obtain treadmill stress echo to further evaluate chest tightness 3. Hyperlipidemia, unspecified hyperlipidemia type -we will obtain updated lipid panel -may recommend starting statin based on findings 4. Tobacco dependence syndrome -encouraged complete tobacco cessation 5. Morbid obesity (HCC) -encouraged weight loss, lifestyle changes, dietary changes Subjective: HPI: Esther Day is a 33 y.o. female with a past medical history significant for hyperlipidemia, anxiety, GERD, obesity, tobacco use and chronic back pain. Today she presents with complaints of intermittent chest tightness. She reports last episode was about 1-2 months ago. Chest tightness is left- sided, radiating to her left shoulder and accompanied with shortness of breath. This is not brought on by exertion. The chest pain lasts a few with no relieving factors. She denies associated diaphoresis, nausea and vomiting, back pain, dizziness, near-syncope or syncope. She reports rare tobacco use, denies alcohol use, and occasional THC infused gummies at night. She denies heart disease in parents, siblings, or children. Reports that her grandfather and uncle have had MIs. She denies current chest pain, shortness of breath. Denies orthopnea, PND, dizziness, bilateral lower extremity edema, palpitations near-syncope or syncope. Patient Active Problem List Diagnosis Date Noted Tobacco dependence syndrome 02/20/2021 Umbilical hernia without obstruction and without gangrene 02/20/2021 HLD (hyperlipidemia) 10/25/2020 Vitamin D deficiency 10/25/2020 Morbid obesity (HCC) 10/24/2020 Anxiety and depression 10/24/2020 S/P excision of lipoma 03/16/2019 Lipoma of skin and subcutaneous tissue 02/12/2019 Primary focal hyperhidrosis 12/25/2018 Carpal tunnel syndrome of right wrist 04/29/2018 Lipoma of torso 07/01/2017 Chronic bilateral low back pain with right-sided sciatica 04/03/2016 Irritable bowel syndrome with diarrhea 04/03/2016 BMI 37.0-37.9, adult 04/03/2016 Gastroesophageal reflux disease without esophagitis 04/03/2016 Allergies Allergen Reactions Augmentin [Amoxicillin-Pot Clavulanate] Rash and Itching Ceclor [Cefaclor] Hives and Rash Codeine Hives and Itching Cannot display prior to admission medications because the patient has not been admitted in this contact. Current Outpatient Medications on File Prior to Visit Medication Sig Dispense Refill busPIRone (BUSPAR) 15 MG Tablet Take 1 Tablet by mouth 2 times daily. 60 Tablet 2 dicyclomine (BENTYL) 20 MG Tablet TAKE 1 TABLET BY MOUTH EVERY 6 HOURS NEEDED FOR ABDOMINAL CRAMPING/DIARRHEA 90 Tablet 0 fluticasone (FLONASE) 50 MCG/ACT Suspension 2 Sprays by Nasal route daily. Use in each nostril as directed. 18.2 mL 0 omeprazole (PriLOSEC) 40 MG CAPSULE DELAYED RELEASE Take 1 Capsule by mouth daily. 90 Capsule 3 triamcinolone (KENALOG) 0.1 % Cream APPLY CREAM EXTERNALLY TWICE DAILY TO RASH 80 g 0 venlafaxine (EFFEXOR-XR) 150 MG CAPSULE SR 24 HR Take 1 Capsule by mouth daily. 90 Capsule 1 Zafemy 150-35 MCG/24HR PATCH WEEKLY APPLY 1 TOPICALLY ONCE A WEEK FOR 21 DAYS No current facility-administered medications on file prior to visit. Past Medical History Positives Diagnosis Date Abscess of face Multiple -face and leg Acid reflux Allergic rhinitis Anxiety Chronic back pain GERD (gastroesophageal reflux disease) Headache History of seizure IBS (irritable bowel syndrome) Migraines Past Surgical History: Procedure Laterality Date CARPAL TUNNEL RELEASE Right 04/29/2018 Procedure: CARPAL TUNNEL RELEASE RIGHT; Surgeon: Trent Blanton MD; Location: [facility]; Service: Orthopaedic EXPLORATORY OF ABDOMEN 2001 Endo fundal plication LAPAROSCOPIC APPENDECTOMY N/A 02/21/2021 Procedure: LAPAROSCOPIC APPENDECTOMY; Surgeon: Rm Butler MD; Location: [facility]; Service: General LIPOMA RESECTION Left 07/04/2017 Procedure: EXCISION LIPOMA LEFT UPPER BACK; Surgeon: Gareth Em MD; Location: [facility]; Service: General LIPOMA RESECTION Bilateral 02/18/2019 Procedure: EXCISION LIPOMAS LOWER BACK TIMES TWO; Surgeon: Escobar Goodman MD; Location: [facility]; Service: General MYRINGOTOMY Bilateral TONSILLECTOMY UMBILICAL HERNIA REPAIR N/A 02/21/2021 Procedure: LAPAROSCOPIC UMBILICAL HERNIA REPAIR- NO MESH; Surgeon: Rm Butler MD; Location: [facility]; Service: General WRIST GANGLION EXCISION Right 04/29/2018 Procedure: GANGLION CYST EXCISION REMOVAL RIGHT WRIST; Surgeon: Trent Blanton MD; Location: 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 Tobacco Use Smoking status: Light Smoker Types: Cigarettes Smokeless tobacco: Never Tobacco comments: 1-2 cigarettes a day Vaping Use Vaping status: Never Used Substance and Sexual Activity Alcohol use: Yes Comment: Rare Drug use: Yes Types: Marijuana Comment: sleep and anxiety and pain Sexual activity: Yes Partners: Male Other Topics Concern Service No Blood Transfusions No Caffeine Concern No Occupational Exposure No Hobby Hazards No Sleep Concern Yes Stress Concern Yes Weight Concern Yes Special Diet No Back Care Yes Exercise Yes Bike Helmet No Seat Belt Yes Self-Exams Yes Social History Narrative Not on file Social Drivers of Health Financial Resource Needs: Patient Declined (01/15/2024) Overall Financial Resource Strain (CARDIA) Difficulty of Paying Living Expenses: Patient declined Food Insecurity Needs: Patient Declined (01/15/2024) Hunger Vital Sign Worried About Running Out of Food in the Last Year: Patient declined Ran Out of Food in the Last Year: Patient declined Transportation Needs: Patient Declined (01/15/2024) PRAPARE - Transportation Lack of Transportation (Medical): Patient declined Lack of Transportation (Non-Medical): Patient declined Physical Activity: Sufficiently Active (01/15/2024) Exercise Vital Sign Days of Exercise per Week: 7 days Minutes of Exercise per Session: 120 min Stress: Stress Concern Present (01/15/2024) [place] [place] [facility] - Occupational Stress Questionnaire Feeling of Stress : To some extent Social Integration: Unknown (01/15/2024) Social Connection and Isolation Panel [NHANES] Frequency of Communication with Friends and Family: More than three times a week Frequency of Social Gatherings with Friends and Family: More than three times a week Attends Mormonism Services: Patient declined Active Member of Clubs or Organizations: Patient declined Attends Club or Organization Meetings: More than 4 times per year Marital Status: Personal Safety: Low Risk (03/03/2024) Personal Safety Feels Unsafe at Home or Work/School: no Feels Threatened by Someone: no Does Anyone Try to Keep You From Having Contact with Others or Doing Things Outside Your Home?: no Physical Signs of Abuse Present: no Housing Stability: Unknown (01/15/2024) Housing Stability Vital Sign Unable to Pay for Housing in the Last Year: Patient declined Number of Times Moved in the Last Year: Not on file Homeless in the Last Year: Not on file Review of Systems: Review of Systems Constitutional: Negative for chills, diaphoresis, fever, malaise/fatigue and weight loss. HENT: Negative for congestion, hearing loss, sore throat and tinnitus. Eyes: Negative for blurred vision and double vision. Respiratory: Negative for cough, hemoptysis, shortness of breath and wheezing. Cardiovascular: Positive for chest pain. Negative for palpitations, orthopnea, claudication, leg swelling and PND. Gastrointestinal: Negative for abdominal pain, constipation, diarrhea, heartburn, nausea and vomiting. Genitourinary: Negative for dysuria, frequency and hematuria. Musculoskeletal: Negative for back pain, falls, joint pain and myalgias. Skin: Negative for rash. Neurological: Negative for dizziness, speech change, focal weakness, loss of consciousness, weakness and headaches. Endo/Heme/Allergies: Does not bruise/bleed easily. Psychiatric/Behavioral: Negative for depression and substance abuse. The patient does not have insomnia. Pertinent items are noted in HPI. All other systems were reviewed and were negative. Objective: VITALS: BP 124/65 (BP Location: Right Arm, BP Position: Sitting, BP Cuff Size: Regular) Pulse 77 Temp 97.2 ??F (36.2 ??C) (Temporal) Resp 22 Ht 5' (1.524 m) Wt 200 lb (90.7 kg) LMP 12/26/2023 (Approximate) SpO2 98% BMI 39.06 kg/m?? Physical Exam Constitutional: General: She is not in acute distress. Appearance: Normal appearance. She is obese. She is not ill-appearing or diaphoretic. HENT: Head: Normocephalic and atraumatic. Nose: Nose normal. No congestion. Mouth/Throat: Mouth: Mucous membranes are moist. Pharynx: Oropharynx is clear. Eyes: Conjunctiva/sclera: Conjunctivae normal. Pupils: Pupils are equal, round, and reactive to light. Cardiovascular: Rate and Rhythm: Normal rate and regular rhythm. Pulses: Normal pulses. Heart sounds: Normal heart sounds. Pulmonary: Effort: Pulmonary effort is normal. Breath sounds: Normal breath sounds. Abdominal: General: Abdomen is flat. Palpations: Abdomen is soft. Musculoskeletal: General: Normal range of motion. Right lower leg: No edema. Left lower leg: No edema. Skin: General: Skin is warm and dry. Capillary Refill: Capillary refill takes less than 2 seconds. Neurological: General: No focal deficit present. Mental Status: She is alert and oriented to person, place, and time. Mental status is at baseline. Psychiatric: Mood and Affect: Mood normal. Judgment: Judgment normal. Data Review: No results for input(s): ALBUMIN , TBIL , BILIRUBIN , ALKALINEPHO , SGOTAST , SGPTALT , TOTALPROTEIN in the last 72 hours. Lab Results Component Value Date WBC 10.53 01/29/2024 HEMOGLOBIN 12.5 01/29/2024 HEMATOCRIT 34.9 01/15/2017 PLATELETCNT 359 01/29/2024 CHOLESTEROL 211 (H) 03/29/2024 TRIGLYCRIDES 309 (H) 03/29/2024 HDLCHOLESTE 48 03/29/2024 LDL 101 03/29/2024 SGPTALT 25 01/29/2024 SGOTAST 24 01/29/2024 SODIUM 139 01/29/2024 POTASSIUM 3.7 01/29/2024 CHLORIDE 105 01/29/2024 CREATININE 0.75 01/29/2024 BUN 7 01/29/2024 CO2VEN 25 01/29/2024 TSH 1.269 06/24/2023 GLUCOSE 86 01/29/2024 I personally reviewed the above labs and radiological studies (images if available and reports), and agree with the radiologist unless stated above. By: Karen Andino APRN, CNP, 03/29/2024, 8:53 PM DOUGH MIXING MACHINE OPERATOR Primary Care Physician: Kj Merlos MD H MIXING MACHINE OPERATOR documented in this encounter Plan of Treatment Upcoming Encounters Date Type Department Care Team (Late st Contact Info) Description 04/28/2024 10:00 AM DOUGH MIXING MACHINE OPERATOR [facility] [address] [place] [address] Karen Andino APRN, OFFAL WORKER [address] [place] [address] Discharge Disposition: Discharged to home or Selfcare 06/02/2024 10:00 AM DOUGH MIXING MACHINE OPERATOR Office Visit [facility] Family [facility] [address] [place] [address] Kelin Castle, PAC [address] [place] [address] Scheduled Orders Name Type Priority Associated Diagnoses Orde r Schedule ADULT CV STRESS TREADMILL ECHO Imaging Routine Chest pain, unspecified type Expected: 03/30/2024, Expires: 07/28/2024 documented as of this encounter Results * (ABNORMAL) LIPID PANEL (03/29/2024 9:59 AM DOUGH MIXING MACHINE OPERATOR) CHOLESTEROL 211(H) <200 mg/dL 03/29/2024 10:36 AM DOUGH MIXING MACHINE OPERATOR [facility] TRIGLYCERIDES 309(H) <150 mg/dL 03/29/2024 10:36 AM [facility] HDL CHOLESTEROL 48 >40 mg/dL 10:36 AM [facility] LDL 101 <130 mg/dL 03/29/2024 10:36 AM [facility] VLDL 62(H) 10 - 50 mg/dL 03/29/2024 10:36 AM [facility] CHOL/HDL RATIO 4.4 0.0 - 4.4 03/29/2024 10:36 AM [facility] NON-HDL CHOLESTEROL 163(H) <130 mg/dL 03/29/2024 10:36 AM [facility] IS THE PATIENT REQUIRED TO BE FASTING? Yes 03/29/2024 10:36 AM [facility] HAS THE PATIENT BEEN FASTING? Yes 03/29/2024 10:36 AM [facility] Blood Venipuncture / Unknown 03/29/2024 9:59 AM DOUGH MIXING MACHINE OPERATOR 03/29/2024 10:09 AM DOUGH MIXING MACHINE OPERATOR Karen Andino APRN, SUZY CHEMISTRY RHEA HURST Final Result [facility] [address] [place] [address] documented in this encounter Visit Diagnoses Diagnosis Chest pain, unspecified type- Primary Abnormal EKG Nonspecific abnormal electrocardiogram (ECG) (EKG) Hyperlipidemia, unspecified hyperlipidemia type Tobacco dependence syndrome Tobacco use disorder Morbid obesity (HCC) Morbid obesity documented in this encounter Additional Health Concerns Assessment Noted Time PHQ-9 Depression Total Score: 8 01/15/20 24 4:34 PM CDT documented as of this encounter Care Teams Hammerer Tab Relationship Specialty Start Date End Date Kj Merlos MD [address] [address] PCP - General Family Medicine 04/09/21 Tatiana Logan APRN, OFFAL WORKER [address] [place] [address] Nurse Practitioner Advanced Practice Nurse 01/29/24 Karen Andino APRN, OFFAL WORKER [address] [place] [address] Nurse Practitioner Cardiology 03/29/24 documented as of this encounter
--- OUTSIDE RECORDS SUMMARY | 2024-04-17 13:50 | XMS_ITS | Encounter Summary ---
Author Organization [facility] [employer] Care Team Providers Care Safety And Skill Based Pay Manager Name Role Phone Kj Merlos MD Primary Care Provider [phone] Tatiana Logan APRN, INTERNAL REVENUE SERVICE AGENT Unavailable Encounter Details Date Type Department Care Team (Latest Contact Info) Description 02/06/2024 Travel Social History Tobacco Use Types Packs/Day Years Used Date Smoking Tobacco: Light Smoker Cigarettes Smokeless Tobacco: Never Comments:1-2 cigarettes a da y Alcohol Use Standard Drinks/Week Comments Yes 0 (1 standard drink = 0.6 oz pur e alcohol) Rare [facility] Utilities Answer Date Recorded In the past 12 months has [employer] electric, gas, oil, or water company threatened to [...] 01/15/2024 How often do you attend chur ch or methodist services? Patient declined 01/15/2024 Do you belong to any clubs o r organizations such as latter day groups, unions, fraternal or athletic groups, or [...] Total Score - Questions 1-9 8 06/2023 [facility] - Occupational Stress [...] place to sleep or slept in a snf (including now)? 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 Cardiology [address] [place] [id number] Karen Andino APRN, INTERNAL REVENUE SERVICE AGENT [address] [place] [phone] Discharge Disposition: Discharged to home or Selfcare 06/02/2024 10:00 AM WADER BOOT TOP ASSEMBLER Office Visit [facility] - Family Medicine [facility] [address] [place] [address] Kelin Castle, PAC [address] [place] [address] documented as of this encounter Visit Diagnoses Not on filedocumented in this encounter Additional Health Concerns Assessment Noted Time PHQ-9 Depression Total Score: 8 01/15/20 24 4:34 PM CDT documented as of this encounter Care Teams Safety And Skill Based Pay Manager Relationship Specialty Start Date End Date Kj Merlos MD #[address] [address] PCP - General Family Medicine 04/09/21 Tatiana Logan APRN, INTERNAL REVENUE SERVICE AGENT [address] [place] [address] Nurse Practitioner Advanced Practice Nurse 01/29/24 documented as of this encounter
--- OUTSIDE RECORDS SUMMARY | 2024-04-17 13:50 | XMS_ITS | Encounter Summary ---
Author Organization [facility] Health Address [address] [facility] [place] [address] Care Team Providers Care Energy Manager Name Role Phone Diana Robles Primary Care Provider Encounter Details Date Type Department Care Team (Late st Contact Info) Description 03/08/2019 Orders Only [facility] PHYS SURGERY [address] [place] [address] Maurice Powers MD [address] [place] [address] Palmar wrist ganglion Social History Tobacco Use Types Packs/Day Years Used Date Smoking Tobacco: Some Days Cigarettes Smokeless Tobacco: Never Alcohol Use Standard Drinks/Week Comments Yes 0 (1 standard drink = 0.6 oz pur e alcohol) Sex and Gender Information Value Date Recorded Sex Assigned at Female 06/05/2021 9:56 PM SMALL BOAT ENGINEER Gender Identity Female 06/05/2021 9:56 PM SMALL BOAT ENGINEER Sexual Orientation Straight 06/05/2021 9: 56 PM SMALL BOAT ENGINEER documented as of this encounter Plan of Treatment Not on file documented as of this encounter Visit Diagnoses Diagnosis Palmar wrist ganglion- Primary Ganglion of joint documented in this encounter Care Teams Energy Manager Relationship Specialty Start Date End Date Diana Robles APRN-CNP [address] [place] [address] Dr [address] [place] [id number] PCP - General 10/22/18 documented as of this encounter
--- OUTSIDE RECORDS SUMMARY | 2024-04-17 13:50 | XMS_ITS | Encounter Summary ---
Author Organization [facility] Address [address] [facility] [place] [address] Care Team Providers Care Instrument Technician Helper Name Role Phone Diana Robles LEGAL EXECUTIVE-TRAINING AND DEVELOPMENT COORDINATOR Primary Care Provider Reason for Visit * Reason Onset Date Comments Medication Problem 12/25/2018 Encounter Details Date Type Department Care Team (Late st Contact Info) Description 12/25/2018 Telephone [facility] [address] [place] [address] Wes Lainez MD [address] [facility] [address] [place] [address] Medication Problem Social History Tobacco Use Types Packs/Day Years Used Date Smoking Tobacco: Some Days Cigarettes Smokeless Tobacco: Never Alcohol Use Standard Drinks/Week Comments Yes 0 (1 standard drink = 0.6 oz pur e alcohol) Sex and Gender Information Value Date Recorded Sex Assigned at Female 06/05/2021 9:56 PM WEED SCIENCE RESEARCH TECHNICIAN Gender Identity Female 06/05/2021 9:56 PM WEED SCIENCE RESEARCH TECHNICIAN Sexual Orientation Straight 06/05/2021 9: 56 PM WEED SCIENCE RESEARCH TECHNICIAN documented as of this encounter Miscellaneous Notes * Telephone Encounter - Karen Stuart - 12/25/2018 2:06 PM CDT Script resent to pharmacy. Karen Stuart * Telephone Encounter - Yadi Negrete - 12/25/2018 1:55 PM CDT clotrimazole (LOTRIMIN AF) 1 % cream Pt called and states that the pharmacy did not receive this. Please advise. documented in this encounter Plan of Treatment Not on file documented as of this encounter Visit Diagnoses Not on filedocumented in this encounter Care Teams Instrument Technician Helper Relationship Specialty Start Date End Date Diana Robles, LEGAL EXECUTIVE-TRAINING AND DEVELOPMENT COORDINATOR [address] [facility] [address] [place] [phone] PCP - General 10/22/18 documented as of this encounter
--- OUTSIDE RECORDS SUMMARY | 2024-04-17 13:50 | XMS_ITS | Encounter Summary ---
Author Organization [facility] Care Team Providers Care Filling Mixer Name Role Phone Kj Merlos MD Primary Care Provider [phone] Tatiana Logan APRN, RF TEST TECHNICIAN Unavailable Encounter Details Date Type Department Care Team (Latest Contact Info) Description 03/26/2024 Travel Social History Tobacco Use Types Packs/Day Years Used Date Smoking Tobacco: Light Smoker Cigarettes Smokeless Tobacco: Never Comments:1-2 cigarettes a da y Alcohol Use Standard Drinks/Week Comments Yes 0 (1 standard drink = 0.6 oz pur e alcohol) Rare [facility] Utilities Answer Date Recorded In the past 12 months has [employer] electric, gas, oil, or water company threatened [...] often do you attend chur ch or orthodox services? 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 file Not on file documented as of this encounter Plan of Treatment Upcoming Encounters Date Type Department Care Team (Late st Contact Info) Description 04/28/2024 10:00 AM DEVELOPMENT AND PLANNING ENGINEER Appointment [facility] Cardiology Stress [address] [place] [phone] Karen Andino APRN, RF TEST TECHNICIAN [address] [place] [phone] Discharge Disposition: Discharged to home or Selfcare 06/02/2024 10:00 AM DEVELOPMENT AND PLANNING ENGINEER Office Visit [facility] - Family Medicine [facility] [address] [place] [address] Kelin Castle, PAC [address] [place] [address] documented as of this encounter Visit Diagnoses Not on filedocumented in this encounter Additional Health Concerns Assessment Noted Time PHQ-9 Depression Total Score: 8 01/15/20 24 4:34 PM CDT documented as of this encounter Care Teams Filling Mixer Relationship Specialty Start Date End Date Kj Merlos MD #[address] [address] PCP - General Family Medicine 04/09/21 Tatiana Logan APRN, RF TEST TECHNICIAN [address] [place] [address] Nurse Practitioner Advanced Practice Nurse 01/29/24 documented as of this encounter
--- OUTSIDE RECORDS SUMMARY | 2024-04-17 13:50 | XMS_ITS | Encounter Summary ---
Author Organization [facility] Address [address] [place] [address] Phone Care Team Providers Care Edger Automatic Name Role Phone Kj Merlos MD Primary Care Provider Tatiana Logan APRN, WEED BURNER Unavailable Karen Andino APRN, WEED BURNER Unavailable Reason for Visit * Reason Onset Date Comments Results 04/05/2024 Encounter Details Date Type Department Care Team (Late st Contact Info) Description 04/05/2024 Telephone [facility] - Cardiology - [place] [address] [place] [address] Karen Andino APRN, WEED BURNER [address] [place] [address] Results Social History Tobacco Use Types Packs/Day Years Used Date Smoking Tobacco: Light Smoker Cigarettes Smokeless Tobacco: Never Comments:1-2 cigarettes a da y Alcohol Use Standard Drinks/Week Comments Yes 0 (1 standard drink = 0.6 oz pur e alcohol) Rare [facility] Utilities Answer Date Recorded In the past 12 months has e electric, gas, oil, or water company threatened [...] often do you attend chur ch or caodaism services? Patient declined 01/15/2024 Do you belong to any clubs o r organizations such as sikh groups, unions, fraternal or athletic groups, or [...] Total Score - Questions 1-9 8 06/2023 [facility] of Occupat ional Health - Occupational [...] place to sleep or slept in a fci (including now)? 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 Karen Andino, SCREW MACHINE OPERATOR, WEED BURNER P [facility] Nurse Pool Her cholesterol, triglycerides and LDL are elevated. I can start a statin medication on her if she is agreeable. Otherwise, I encourage exercise and dietary modifications if she prefers to continue to hold off on medication for now. Let me know what she would like to do. Thanks! ARY CIRCULATION DEPARTMENT CHIEF documented in this encounter Plan of Treatment Upcoming Encounters Date Type Department Care Team (Late st Contact Info) Description 04/28/2024 10:00 AM LIBRARY CIRCULATION DEPARTMENT CHIEF Appointment [facility] Cardiology Stress [address] [place] [address] aKren Andino APRN, WEED BURNER [address] [place] [address] Discharge Disposition: Discharged to home or Selfcare 06/02/2024 10:00 AM LIBRARY CIRCULATION DEPARTMENT CHIEF Office Visit [facility] - Family [facility] [address] [place] [address] Kelin Castle PAC [address] [place] [address] documented as of this encounter Visit Diagnoses Not on filedocumented in this encounter Additional Health Concerns Assessment Noted Time PHQ-9 Depression Total Score: 8 01/15/20 24 4:34 PM CDT documented as of this encounter Care Teams Edger Automatic Relationship Specialty Start Date End Date Kj Merlos MD #[address] [address] PCP - General Family Medicine 04/09/21 Tatiana Logan APRN, WEED BURNER [address] [place] [address] Nurse Practitioner Advanced Practice Nurse 01/29/24 Karen Andino APRN, WEED BURNER [address] [place] [address] Nurse Practitioner Cardiology 03/29/24 documented as of this encounter
--- OUTSIDE RECORDS SUMMARY | 2024-04-17 13:50 | XMS_ITS | Encounter Summary ---
Author Organization [facility] Address [address] [place] [address] Phone Care Team Providers Care Regional Hr Manager Name Role Phone Kj Merlos MD Primary Care Provider [phone] Tatiana Logan APRN, MATERIAL HANDLER LOADER Unavailable Reason for Referral * Consult, Test & Initiate Treatment (Routine) - Closed Specialty Diagnoses / Procedures Referred By Ariana t Referred To Contact Diagnoses Abnormal EKG Kelin Castle PAC [address] [place] [address] Phone: tel: fax: [facility] Cardiology [facility] [address] [place] [address] Phone: tel: fax: Referral ID Status Reason Start Date Expiration Date Visits Re quested Visits Authorized [id number] Closed 02/10/2024 1 1 Scheduling Instructions Esther is being referred for abnormal ekg. Please contact patient for scheduling questions or concerns. Reason for Visit * Reason Onset Date Comments Results 02/10/2024 Encounter Details Date Type Department Care Team ([facility] st Contact Info) Description 02/10/2024 Telephone [facility] - Family Medicine [facility] [address] [place] [address] Kelin Castle, PAC [address] [place] [address] Results Social History Tobacco Use Types Packs/Day Years Used Date Smoking Tobacco: Light Smoker Cigarettes Smokeless Tobacco: Never Comments:1-2 cigarettes a da y Alcohol Use Standard Drinks/Week Comments Yes 0 (1 standard drink = 0.6 oz pur e alcohol) Rare [facility] Utilities Answer Date Recorded In the past 12 months has th e [employer], gas, oil, or water [employer] threatened to shut off services in your [...] week 01/15/2024 How often do you attend [facility] or holiness services? Patient declined 01/15/2024 Do you belong to any clubs o r organizations such as spiritism groups, unions, fraternal or athletic groups, or [...] Total Score - Questions 1-9 8 06/2023 [facility] of Occupat ional Health - [...] place to sleep or slept in a penitentiary (including now)? 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 on file documented as of this encounter Miscellaneous Notes * Addendum Note - Kelin Castle PAC - 02/10/2024 11:48 AM CDTAddended by: KELIN CASTLE on: 02/10/2024 11:48 AM Modules accepted: Orders * Addendum Note - Muna Huber RN - 02/10/2024 11:32 AM CDTAddended by: MUNA HUBER on: 02/10/2024 11:32 AM Modules accepted: Orders * Telephone Encounter - Muna Huber RN - 02/10/2024 11:23 AM CDT ----- Message from Celia Castle sent at 02/08/2024 4:50 PM CDT ----- Normal rhythm, changed of possible previous injury to heart although echo was normal Suggest consult with cable swager, can place referral if agreeable documented in this encounter Plan of Treatment Upcoming Encounters Date Type Department Care Team (Late st Contact Info) Description 04/28/2024 10:00 AM CUSTOMER INSIGHT ANALYST Appointment [facility] Cardiology Stress [address] [place] [phone] Karen Andino APRN, MATERIAL HANDLER LOADER [address] [place] [phone] Discharge Disposition: Discharged to home or Selfcare 06/02/2024 10:00 AM CUSTOMER INSIGHT ANALYST Office Visit [facility] - Family Medicine [facility] [address] [place] [address] Kelin Castle [facility] [address] [place] [address] Scheduled Referrals Name Type Priority Associated Diagnoses Order Schedule CARDIOLOGY REFERRAL Outpatient Referral Routine Abnormal EKG Expected: 02/10/2024, Expires: 02/09/2025 documented as of this encounter Visit Diagnoses Diagnosis Abnormal EKG- Primary Nonspecific abnormal electrocardiogram (ECG) (EKG) documented in this encounter Additional Health Concerns Assessment Noted Time PHQ-9 Depression Total Score: 8 01/15/20 24 4:34 PM CDT documented as of this encounter Care Teams Regional Hr Manager Relationship Specialty Start Date End Date Kj Merlos MD #[address] [address] PCP - General Family Medicine 04/09/21 Tatiana Logan APRN, MATERIAL HANDLER LOADER [address] [place] [address] Nurse Practitioner Advanced Practice Nurse 01/29/24 documented as of this encounter
--- OUTSIDE RECORDS SUMMARY | 2024-04-17 13:50 | XMS_ITS | Encounter Summary ---
Author Organization [facility] Address [address] [place] [address] Phone Care Team Providers Care Merchandise Distributor Name Role Phone Kj Merlos MD Primary Care Provider Tatiana Logan APRN, MARINE ENGINEERING TECHNICIANS Unavailable Karen Andino APRN, MARINE ENGINEERING TECHNICIANS Unavailable Reason for Visit * Reason Comments Medication Refill Encounter Details Date Type Department Care Team (Late st Contact Info) Description 03/13/2024 Refill [facility] - Gastroenterology - [place] [address]2 [place] [address] Tatiana Logan APRN, MARINE ENGINEERING TECHNICIANS [address] [place], [place] [phone] Medication Refill Social History Tobacco Use Types Packs/Day Years Used Date Smoking Tobacco: Light Smoker Cigarettes Smokeless Tobacco: Never Comments:1-2 cigarettes a da y Alcohol Use Standard Drinks/Week Comments Yes 0 (1 standard drink = 0.6 oz pur e alcohol) Rare [facility] Utilities Answer Date Recorded In the past 12 months has e [employer], gas, oil, or water company threatened to [...] How often do you attend chur or scientology services? Patient declined 01/15/2024 Do you belong to any clubs o r organizations such as jainism groups, unions, fraternal or athletic groups, or [...] Total Score - Questions 1-9 8 06/2023 [facility] of Occupat ional Health - Occupational Stress [...] place to sleep or slept in a fpc (including now)? 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 LINING EXAMINER documented in this encounter Plan of Treatment Upcoming Encounters Date Type Department Care Team (Late st Contact Info) Description 04/28/2024 10:00 AM SOCK LINING EXAMINER Appointment [facility] Cardiology Stress [address] [facility] [address] Karen Andino APRN, MARINE ENGINEERING TECHNICIANS [address] [place] [address] Discharge Disposition: Discharged to home or Selfcare 06/02/2024 10:00 AM SOCK LINING EXAMINER Office Visit [facility] - Family [facility] [address]2 [place] [address] Kelin Castle, PAC [address] [place] [address] documented as of this encounter Visit Diagnoses Diagnosis Diarrhea, unspecified type Abdominal cramping Abdominal pain, unspecified site documented in this encounter Additional Health Concerns Assessment Noted Time PHQ-9 Depression Total Score: 8 01/15/20 24 4:34 PM CDT documented as of this encounter Care Teams Merchandise Distributor Relationship Specialty Start Date End Date Kj Merlos MD #[address] [address] PCP - General Family Medicine 04/09/21 Tatiana Logan APRN, MARINE ENGINEERING TECHNICIANS [address] [place] [address] Nurse Practitioner Advanced Practice Nurse 01/29/24 Karen Andino APRN, MARINE ENGINEERING TECHNICIANS [address] [place] [phone] Nurse Practitioner Cardiology 03/29/24 documented as of this encounter
--- OUTSIDE RECORDS SUMMARY | 2024-04-17 13:50 | XMS_ITS | Encounter Summary ---
Author Organization [facility] Address [address] [place] [address] Phone Care Team Providers Care Color Control Operator Name Role Phone Kj Merlos MD Primary Care Provider [phone] Tatiana Logan APRN, CLAIM PROCESSOR Unavailable Karen Andino APRN, CLAIM PROCESSOR Unavailable Encounter Details Date Type Department Care Team (Late st Contact Info) Description 03/25/2024 Results Follow-Up [facility] - Gastroenterology - [place] [address] [place] [address] Tatiana Logan APRN, CLAIM PROCESSOR [address] [place] [address] Social History Tobacco Use Types Packs/Day Years Used Date Smoking Tobacco: Light Smoker Cigarettes Smokeless Tobacco: Never Comments:1-2 cigarettes a da y Alcohol Use Standard Drinks/Week Comments Yes 0 (1 standard drink = 0.6 oz pur e alcohol) Rare [facility] Utilities Answer Date Recorded In the past 12 months has [employer], gas, oil, or water [employer] threatened to shut off services in your [...] often do you attend chur ch or faith services? Patient declined 01/15/2024 Do you belong to any clubs o r organizations such as catholic groups, unions, fraternal or athletic groups, or [...] Total Score - Questions 1-9 8 06/2023 [facility] Occupat ional [facility] - Occupational Stress Questionnaire Answer Date Recorded [...] place to sleep or slept in a care home (including now)? 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 Not on file documented as of this encounter Plan of Treatment Upcoming Encounters Date Type Department Care Team (Late st Contact Info) Description 04/28/2024 10:00 AM ARTIFICIAL FLOWER MAKER Appointment [facility] Cardiology Stress [address] [place] [phone] Karen Andino, RYAN, CLAIM PROCESSOR [address] [place] [address] Discharge Disposition: Discharged to home or Selfcare 06/02/2024 10:00 AM ARTIFICIAL FLOWER MAKER Office Visit [facility] - Family [facility] #[address] [place] [address] Kelin Castle PAC [address] [place] [address] documented as of this encounter Visit Diagnoses Not on filedocumented in this encounter Additional Health Concerns Assessment Noted Time PHQ-9 Depression Total Score: 8 01/15/20 24 4:34 PM CDT documented as of this encounter Care Teams Color Control Operator Relationship Specialty Start Date End Date Kj Merlos MD [address] [address] PCP - General Family Medicine 04/09/21 Tatiana Logan APRN, CLAIM PROCESSOR [address]2 [place] [address] Nurse Practitioner Advanced Practice Nurse 01/29/24 Karen Andino APRN, CLAIM PROCESSOR #[address] [facility] [place] [address] Nurse Practitioner Cardiology 03/29/24 documented as of this encounter
--- OUTSIDE RECORDS SUMMARY | 2024-04-17 13:50 | XMS_ITS | Encounter Summary ---
Author Organization [facility] Address [address] [place] [address] Care Team Providers Care Supervisor Cured Meats Name Role Phone Diana Robles RN INTEGRATED-CYBER ENGINEER Primary Care Provider Reason for Visit * Reason Comments Consultation * Consult, Test & Treat (Routine) - Closed Specialty Diagnoses / Procedures Referred By Ariana knight Referred To Contact Plastic Surgery Diagnoses Ganglion, unspecified wrist Diana Robles, RN INTEGRATED-CYBER ENGINEER [address] [place] [address] [phone] [facility] [address] [place] [address] Referral ID Status Reason Start Date Expiration Date Visits Re quested Visits Authorized [id number] Closed 12/31/2018 06/29/2019 1 1 Encounter Details Date Type Department Care Team (Late st Contact Info) Description 01/22/2019 2:00 PM CDT Office Visit [facility] [address] [place] [address] Kj Desir MD [address] [id number] Ganglion cyst (Primary Dx); Palmar wrist ganglion Social History Tobacco Use Types Packs/Day Years Used Date Smoking Tobacco: Some Days Cigarettes Smokeless Tobacco: Never Alcohol Use Standard Drinks/Week Comments Yes 0 (1 standard drink = 0.6 oz pur e alcohol) Sex and Gender Information Value Date Recorded Sex Assigned at Female 06/05/2021 9:56 PM RN RELIEF CHARGE Gender Identity Female 06/05/2021 9:56 PM RN RELIEF CHARGE Sexual Orientation Straight 06/05/2021 9: 56 PM RN RELIEF CHARGE documented as of this encounter Last Filed [...] Mass Index 43.36 01/22/2019 1:50 PM CDT documented in this encounter Progress Notes * Paige Britt MD - 01/22/2019 3:33 PM CDT PLASTIC SURGERY / HAND SURGERY / MICROSURGERY OUTPATIENT CONSULTATION Esther Day 28 year old female CSN: [id number] Date of service: 01/22/2019 HPI Esther Day is a 28 year old female, right hand dominant, who presents for evaluation of her right hand. She underwent excision of a right volar ganglion cyst and right open CTR in October of this year by an outside surgeon. Since she has noticed that the hard lump reoccurred on her right wrist and is increasingly painful. She was referred to [facility] for further evaluation and excision of the reoccurrence. We do not have path report but per chart review and referral records it appears to be documented as a ganglion cyst that was previously removed. 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 Diabetic: No Smoker: Yes Occasional, reports 1/2 pack per month COPD/Asthma/Lung disease: No Cardiac history/HTN: No Stroke or TIA: No Kidney disease: No History of miscarriage or known clotting disorder: No Blood thinners: No Steroids: No PMHx Past Medical History: Diagnosis Date ??? Back pain ??? Migraine PSHx Past Surgical History: Procedure Laterality Date ??? CARPAL TUNNEL SURGERY ??? Lipoma Resection ??? SINUS SURGERY ??? Tonsillectomy and Adenoidectomy Social Hx Social History Tobacco Use ??? Smoking status: Current Some Day Smoker Types: Cigarettes ??? Smokeless tobacco: Never Used Substance Use Topics ??? Alcohol use: Yes Family Hx family history is not on file. Family history of miscarriage or known clotting disorder: No Allergies Allergies Allergen Reactions ??? Augmentin Rash ??? Cefaclor Rash ??? Codeine Itching Medications Current Outpatient Medications Medication ??? clotrimazole (LOTRIMIN AF) 1 % cream ??? cyanocobalamin (VITAMIN B-12) 250 MCG TABS ??? cyclobenzaprine (FLEXERIL) 10 MG tablet ??? glycopyrrolate (ROBINUL) 2 MG tablet ??? ibuprofen (MOTRIN) 800 MG tablet ??? loratadine (CLARITIN) 10 MG tablet ??? raNITIdine (ZANTAC) 150 MG tablet ??? SERTRALINE HCL PO ??? terbinafine (LAMISIL) 250 MG tablet ??? VITAMIN D, CHOLECALCIFEROL, PO No current facility-administered medications for this visit. Review of Systems Review of Systems Constitutional: Negative for fever. HENT: Negative for sore throat. Eyes: Negative for blurred vision and redness. Respiratory: Negative for cough, shortness of breath and stridor. Cardiovascular: Negative for chest pain and palpitations. Gastrointestinal: Negative for nausea and vomiting. Genitourinary: Negative for urgency. Musculoskeletal: Positive for back pain. Skin: Negative for itching and rash. Neurological: Negative for headaches. Endo/Heme/Allergies: Does not bruise/bleed easily. Psychiatric/Behavioral: The patient is nervous/anxious. Vitals BP 140/81 Pulse 81 Temp 97.2 ??F (36.2 ??C) (Oral) Ht 5' (1.524 m) Wt 222 lb (100.7 kg) SpO2 98% BMI 43.36 kg/m2 Physical Exam General appearance: alert, cooperative, no distress CV: regular rate Pulm: non-labored WOB right upper extremity examination: Inspection: -deformity: No -swelling: none -open wound: No -ecchymosis: No Perfusion: -warm, well perfused upper limb, with normal capillary refill Sensation: -intact to light touch in R/M/U nerve Motor: -APB normal, EIP normal, FDI normal Palpation: -Tenderness on palpation: Yes Over the right first CMCJ -Extensors (APL/EPB/ECR/EPL/EIP/EDC/EDM/ECU) intact. -Flexors (FPL/FDS/FDP) intact. Additional findings: well healed incisions over the transverse carpal ligament and first CMCJ Assessment and Plan 28 year old female with right likely reoccurrence of ganglion cyst . -Ms. Day was counseled as to her diagnosis and demonstrated understanding -Recommendations: no specific restrictions at this time - We will refer you to Dr. Arriaga, our hand surgeon at [facility] for further evaluation -She will call in the interim with any questions or concerns. Paige Britt MD Plastic Surgery Resident, PGY-1 Pager: [phone] 01/22/2019 3:40 PM Nights (5pm-7am) and weekends, please call [phone] and ask the cash register operator to page the plastic surgery resident director of corporate sponsorships. * Kj Desir MD - 01/22/2019 3:29 PM CDT Attending Physician Supervisory Note I personally interviewed and examined the patient and agree with the doctor above. She presents forevaluation of a recurrent right volar wrist ganglion. She had this excised with a carpal tunnel release ~4 months ago. She notes the ganglion recurred soon after surgery. She also feels that her gripstrength has not returned. On exam, there is a ~1 cm ganglion of the right volar wrist overlying the radial artery. There is sluggish refill of the hand from the radial artery. There is brisk refill of the entire hand from the ulnar artery. I discussed with her that this is likely a recurrent ganglion cyst. I discussed that her varnish dipper strength may improve. I am going to refer her to my partner, Dr. Arriaga, for further evaluation. Kj Desir MD documented in this encounter Plan of Treatment Not on file documented as of this encounter Visit Diagnoses Diagnosis Ganglion cyst- Primary Ganglion, unspecified Palmar wrist ganglion Ganglion of joint documented in this encounter Care Teams Supervisor Cured Meats Relationship Specialty Start Date End Date Diana Robles, RN INTEGRATED-CYBER ENGINEER [address] [place] [address] Dr [address] [place] [phone] PCP - General 10/22/18 documented as of this encounter
--- OUTSIDE RECORDS SUMMARY | 2024-04-17 13:50 | XMS_ITS | Encounter Summary ---
Author Organization [facility] Address [address] [place] [address] Phone Care Team Providers Care Power And Recovery Supervisor Name Role Phone Kj Merlos MD Primary Care Provider [phone] Tatiana Logan APRN, CLINICAL QUALITY RN Unavailable Reason for Visit * Reason Onset Date Comments Social Concerns 03/19/2024 Encounter Details Date Type Department Care Team (Late st Contact Info) Description 03/19/2024 Patient Outreach [facility] [address] [place] [address] Navigator, [employer] [place] Social Concerns Social History Tobacco Use Types Packs/Day Years Used Date Smoking Tobacco: Light Smoker Cigarettes Smokeless Tobacco: Never Comments:1-2 cigarettes a da y Alcohol Use Standard Drinks/Week Comments Yes 0 (1 standard drink = 0.6 oz pur e alcohol) Rare [facility] Utilities Answer Date Recorded In the past 12 months has [employer], [employer], oil, or water [employer] threatened to shut off services in your [...] week 01/15/2024 How often do you attend [facility] or rastafarian services? Patient declined 01/15/2024 Do you belong to any clubs o r organizations such as nondenominational groups, unions, fraternal or athletic groups, or [...] Total Score - Questions 1-9 8 06/2023 [facility] - Occupational [...] place to sleep or slept in a group home (including now)? 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 and Left voicemail with number to call us back ([phone]). This is the final attempt to reach the patient. [employer] documented in this encounter Plan of Treatment Upcoming Encounters Date Type Department Care Team (Late st Contact Info) Description 04/28/2024 10:00 AM LABORER DAIRY FARM Appointment [facility] Cardiology Stress [address] [place] [address] Karen Andino APRN, CLINICAL QUALITY RN [address] [place] [address] Discharge Disposition: Discharged to home or Selfcare 06/02/2024 10:00 AM LABORER DAIRY FARM Office Visit [facility] [address] [place] [address] Kelin Castle [facility] [address] [place] [address] documented as of this encounter Visit Diagnoses Not on filedocumented in this encounter Additional Health Concerns Assessment Noted Time PHQ-9 Depression Total Score: 8 01/15/20 24 4:34 PM CDT documented as of this encounter Care Teams Power And Recovery Supervisor Relationship Specialty Start Date End Date Kj Merlos MD [address] [address] PCP - General Family Medicine 04/09/21 Tatiana Logan APRN, CLINICAL QUALITY RN [address] [place] [address] Nurse Practitioner Advanced Practice Nurse 01/29/24 documented as of this encounter
--- OUTSIDE RECORDS SUMMARY | 2024-04-17 13:50 | XMS_ITS | Encounter Summary ---
Author Organization [facility] Address [address] [place] [address] Phone Care Team Providers Care Pipe Maker Name Role Phone Kj Merlos MD Primary Care Provider Ttaiana Logan APRN, CREPE MACHINE OPERATOR Unavailable Reason for Visit * Reason Comments Ear Pain Left ear pain x3 day s; not hurting as bad as it was but she is getting headaches when the pain flares up. States she feels like there is drainage but has not gotten anything out of her ear and nothing is physically running out of her ear. Encounter Details Date Type Department Care Team (Late st Contact Info) Description 02/06/2024 8:30 AM CDT Office Visit [facility] - [facility] [address] [place] [address] Kelin Castle, [facility] [address] [place] [address] Dysfunction of left eustachian tube (Primary Dx) Discharge Disposition: Discharged to home or Selfcare Social History Tobacco Use Types Packs/Day Years Used Date Smoking Tobacco: Light Smoker Cigarettes Smokeless Tobacco: Never Tobacco Cessation:Ready to Q uit: No; Counseling Given: Yes Comments:1-2 cigarettes a day Alcohol Use Standard Drinks/Week Comments Yes 0 (1 standard drink = 0.6 oz pur e alcohol) Rare [facility] Utilities Answer Date Recorded In the past 12 months has th e electric, gas, oil, or water [employer] threatened to shut off services in your [...] How often do you attend chur or voodoo services? Patient declined 01/15/2024 Do you belong to any clubs o r organizations such as jain groups, unions, fraternal or athletic groups, or [...] Total Score - Questions 1-9 8 06/2023 [facility] Occupat ional Health - [...] place to sleep or slept in a halfway (including now)? 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 file Not on file documented as of this encounter Last Filed Vital Signs Vital Sign Reading Time Taken Comments Blood Pressure 118/76 02/06/2024 8:32 AM CDT Pulse 85 02/06/2024 8:32 AM CDT Temperature 36.6 ??C (97.8 ??F) 02/06/2024 8:32 AM CD T Respiratory Rate 12 02/06/2024 8:32 AM CDT Oxygen Saturation 99% 02/06/2024 8:32 AM CDT Inhaled Oxygen Concentration - - Weight 92.3 kg (203 lb 6.4 oz) 02/06/2024 8:32 A M CDT Height 152.4 cm (5') 02/06/2024 8:32 AM CDT Body Mass Index 39.72 02/06/2024 8:32 AM CDT documented in this encounter Progress Notes * Jacqui Rogers F, WELFARE AIDE - 02/06/2024 8:30 AM CDT Esther Day, 33 y.o., female is here for Ear Pain (Left ear pain x3 days; not hurting as bad as it was but she is getting headaches when the pain flares up. States she feels like there is drainage but has not gotten anything out of her ear and nothing is physically running out of her ear.) Medication Refills: Patient reports/denies need for medication refills. Orders Pended: no Requested Prescriptions No prescriptions requested or ordered in this encounter Home Medications Medication Sig Start Date End Date Taking? Authorizing Provider dicyclomine (BENTYL) 20 MG Tablet Take 1 Tablet by mouth every 6 hours as needed (abdominal cramping/diarrhea). 01/29/24 Yes Tatiana Logan APRN, CNP omeprazole (PriLOSEC) 40 MG CAPSULE DELAYED RELEASE Take 1 Capsule by mouth daily. 01/29/24 Yes Tatiana Logan APRN, CNP triamcinolone (KENALOG) 0.1 % Cream APPLY CREAM EXTERNALLY TWICE DAILY TO RASH 10/13/23 Yes Kj Merlos MD venlafaxine (EFFEXOR-XR) 150 MG CAPSULE SR 24 HR Take 1 Capsule by mouth daily. 01/15/24 Yes Kelin Castle PAC Zafemy 150-35 MCG/24HR PATCH WEEKLY APPLY 1 TOPICALLY ONCE A WEEK FOR 21 DAYS Yes Provider, MD Sunita There are no discontinued medications. I have reviewed the home medication list with the patient and have reconciled discrepancies. The list is accurate to the best of my knowledge. Smoking Status: Social History Tobacco Use Smoking status: Light Smoker Types: Cigarettes Smokeless tobacco: Never Tobacco comments: 1-2 cigarettes a day Vaping Use Vaping status: Never Used Substance Use Topics Alcohol use: Yes Comment: Rare Drug use: Yes Types: Marijuana Comment: sleep and anxiety and pain Smoking Cessation Counseling Given: yes Health Care Maintenance: Health Maintenance Due Topic Date Due Hepatitis C Virus (HCV) Screening Never done Hepatitis B Immunization (1 of 3 - 19+ 3-dose series) Never done Pneumococcal Immunization Combined (2 of 2 - PCV) 12/29/2021 Orders Pended: no The following BPA's have been addressed with the patient today: BMI and Smoking * Kelin Castle PAC - 02/06/2024 8:30 AM CDT Subjective: Subjective Left ear pain 02/03/24, has headache with ear pain, pressure off and on, sometimes runny nose Review of Systems Constitutional: Negative for chills and fever. HENT: Positive for rhinorrhea. Negative for sinus pressure, sinus pain and sore throat. Respiratory: Negative for cough. Cardiovascular: Negative for chest pain. Objective: Objective Physical Exam Vitals reviewed. Constitutional: Appearance: Normal appearance. She is not ill-appearing. HENT: Head: Normocephalic and atraumatic. Ears: Comments: TM dull. No erythema. Nose: Nose normal. Mouth/Throat: Mouth: Mucous membranes are moist. Pharynx: No posterior oropharyngeal erythema. Eyes: General: Right eye: No discharge. Left eye: No discharge. Extraocular Movements: Extraocular movements intact. Cardiovascular: Rate and Rhythm: Normal rate and regular rhythm. Heart sounds: No murmur heard. Pulmonary: Effort: Pulmonary effort is normal. No respiratory distress. Breath sounds: Normal breath sounds. No wheezing. Neurological: Mental Status: She is alert. Psychiatric: Mood and Affect: Mood normal. Assessment and Plan Assessment & Plan See Diagnoses, Orders, Follow-up, and Instructions .Diagnoses and all orders for this visit: Dysfunction of left eustachian tube Other orders - fluticasone (FLONASE) 50 MCG/ACT Suspension; 2 Sprays by Nasal route daily. Use in each nostril as directed. Discussed with patient stays on tube dysfunction suggest Flonase. If needed can take Erica D. notify if no improvements. Discussed there is no infection in ear. documented in this encounter Plan of Treatment Upcoming Encounters Date Type Department Care Team (Late st Contact Info) Description 04/28/2024 10:00 AM DEPOSITING MACHINE OPERATOR Appointment [facility] Cardiology Stress [address] [place] [address] Karen Andino APRN, CREPE MACHINE OPERATOR [address] [place] [address] Discharge Disposition: Discharged to home or Selfcare 06/02/2024 10:00 AM DEPOSITING MACHINE OPERATOR Office Visit [facility] [address] [place] [address] Kelin Castle PAC [address] [place] [address] documented as of this encounter Visit Diagnoses Diagnosis Dysfunction of left eustachian tube- Primary Dysfunction of Eustachian tube documented in this encounter Additional Health Concerns Assessment Noted Time PHQ-9 Depression Total Score: 8 01/15/20 24 4:34 PM CDT documented as of this encounter Care Teams Pipe Maker Relationship Specialty Start Date End Date Kj Merlos MD [address] [address] PCP - General Family Medicine 04/09/21 Tatiana Logan APRN, CREPE MACHINE OPERATOR [address] [place] [address] Nurse Practitioner Advanced Practice Nurse 01/29/24 documented as of this encounter
--- OUTSIDE RECORDS SUMMARY | 2024-04-17 13:50 | XMS_ITS | Encounter Summary ---
Author Organization [facility] Address [address] [place] [address] Phone Care Team Providers Care Foreign Language Interpreter Name Role Phone Kj Merlos MD Primary Care Provider Tatiana Logan APRN, ACCOUNTING CONSULTANT Unavailable Karen Andino APRN, ACCOUNTING CONSULTANT Unavailable Encounter Details Date Type Department Care Team (Late st Contact Info) Description 03/03/2024 Telephone [facility] [place] [address] [place] [address] Tatiana Logan APRN, ACCOUNTING CONSULTANT [address] [place] [address] Social History Tobacco Use Types Packs/Day Years Used Date Smoking Tobacco: Light Smoker Cigarettes Smokeless Tobacco: Never Comments:1-2 cigarettes a da y Alcohol Use Standard Drinks/Week Comments Yes 0 (1 standard drink = 0.6 oz pur e alcohol) Rare [facility] Utilities Answer Date Recorded In the past 12 months has [employer], gas, oil, or water company threatened to [...] often do you attend chur ch or yarsanism services? Patient declined 01/15/2024 Do you belong to any clubs o r organizations such as pentecostal groups, unions, fraternal or athletic groups, or [...] Total Score - Questions 1-9 8 06/2023 [facility] Occupat ional Health - Occupational Stress [...] place to sleep or slept in a prison (including now)? 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 STOCK AGENT documented in this encounter Plan of Treatment Upcoming Encounters Date Type Department Care Team (Late st Contact Info) Description 04/28/2024 10:00 AM LIVESTOCK AGENT [facility] Stress [address] [place] [address] Karen Andino APRN, ACCOUNTING CONSULTANT [address] [place] [address] Discharge Disposition: Discharged to home or Selfcare 06/02/2024 10:00 AM LIVESTOCK AGENT Office Visit [facility] [place] [facility] [place] [address] [place] [address] Kelin Castle, [facility] [address] [place] [address] documented as of this encounter Visit Diagnoses Not on filedocumented in this encounter Additional Health Concerns Assessment Noted Time PHQ-9 Depression Total Score: 8 01/15/20 24 4:34 PM CDT documented as of this encounter Care Teams Foreign Language Interpreter Relationship Specialty Start Date End Date Kj Merlos MD [address] [address] PCP - General Family Medicine 04/09/21 Tatiana Logan APRN, ACCOUNTING CONSULTANT [address] [place] [address] Nurse Practitioner Advanced Practice Nurse 01/29/24 Karen Andino APRN, ACCOUNTING CONSULTANT [address] [place] [address] Nurse Practitioner Cardiology 03/29/24 documented as of this encounter
--- OUTSIDE RECORDS SUMMARY | 2024-04-17 13:50 | XMS_ITS | Encounter Summary ---
Author Organization [facility] Address [address] [place] [address] Phone Care Team Providers Care Security Monitor Name Role Phone Kj Merlos MD Primary Care Provider [phone] Tatiana Logan APRN, LPN Unavailable Reason for Visit * Reason Comments Follow-up Diarrhea Encounter Details Date Type Department Care Team (Late st Contact Info) Description 03/26/2024 11:00 AM CERAMICS MACHINE OPERATOR Office Visit [facility] - Gastroenterology - [place] [address] [place] [address] Tatiana Logan APRN, LPN [address] [place] [address] RUQ pain (Primary Dx); Gall stones; Gastroesophageal reflux disease, unspecified whether esophagitis present Discharge Disposition: Discharged to home or Selfcare Social History Tobacco Use Types Packs/Day Years Used Date Smoking Tobacco: Light Smoker Cigarettes Smokeless Tobacco: Never Comments:1-2 cigarettes a da y Alcohol Use Standard Drinks/Week Comments Yes 0 (1 standard drink = 0.6 oz pur e alcohol) Rare [facility] Utilities Answer Date Recorded In the past 12 months has e [employer], gas, oil, or water company threatened to [...] any clubs o r organizations such as gnosticist groups, unions, fraternal or athletic groups, or [...] Total Score - Questions 1-9 8 06/2023 [facility] - Occupational [...] or rent on time? 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 file Not on file documented as of this encounter Last Filed Vital Signs Vital Sign Reading Time Taken Comments Blood Pressure 132/80 03/26/2024 11:00 AM CERAMICS MACHINE OPERATOR Pulse 73 03/26/2024 11:00 AM CERAMICS MACHINE OPERATOR Temperature 36.3 ??C (97.3 ??F) 03/26/2024 11:[address] Respiratory Rate 16 03/26/2024 11:00 AM CERAMICS MACHINE OPERATOR Oxygen Saturation 98% 03/26/2024 11:00 AM CERAMICS MACHINE OPERATOR Inhaled Oxygen Concentration - - Weight 92.8 kg (204 lb 8 oz) 03/26/2024 11:00 AM CERAMICS MACHINE OPERATOR Height 152.4 cm (5') 03/26/2024 11:00 AM CERAMICS MACHINE OPERATOR Body Mass Index 39.94 03/26/2024 11:00 AM CERAMICS MACHINE OPERATOR documented in this encounter Patient Instructions * Patient Instructions* Tatiana Logan APRN, CNP - 03/26/2024 11:00 AM CERAMICS MACHINE OPERATOR Call the office if you decide that you want to do a HIDA scan MICS MACHINE OPERATOR * Attachments The following attachments cannot be sent through Care Everywhere. * Cholelithiasis ([place]) documented in this encounter Progress Notes * Tatiana Logan APRN, CNP - 03/26/2024 3:30 PM CST [facility] GASTRO [facility] - GASTROENTEROLOGY [facility] [address] [facility] [address] Dept: [phone] Dept Loc: [phone] Loc Patient: Esther Day : 1990 Sex: female Medical Decision Making: Assessment & Plan Diagnoses and all orders for this visit: RUQ pain Gall stones Gastroesophageal reflux disease, unspecified whether esophagitis present Here today for follow-up Has been taking the omeprazole with improvement to the GERD Continues the dicyclomine Right upper quadrant pain has lessened since her last office visit. Ultrasound did note some gallstones, otherwise normal Discussed doing HIDA scan, patient declined at this time but will call back if she changes her mind. Discussed diet recommendations including avoiding fried, fat, fatty, spicy foods. We will plan follow up as needed Return if symptoms worsen or fail to improve. Subjective Subjective: HPI: Esther Day is a 33 y.o. female presents for Follow-up and Diarrhea Esther Day is a 33 y.o. female in the clinic today for follow up. She was last seen in this office on 01/29/2024 for GERD, diarrhea, abdominal cramping, and RUQ pain. At that time we started her on omeprazole and ordered an ultrasound. She reports today that she has been doing better. She has been taking her omeprazole daily which has helped with her acid reflux and epigastric discomfort. She was also continued the dicyclomine which she takes twice every other day to help avoid constipation. Recent ultrasound did note some gallsto manuel. She states that she was still have right upper quadrant discomfort but usually only when she lays down at night on that side. Past Medical History: Past Medical History Positives Diagnosis Date Abscess of face Multiple -face and leg Acid reflux Allergic rhinitis Anxiety Chronic back pain GERD (gastroesophageal reflux disease) Headache History of seizure IBS (irritable bowel syndrome) Migraines Past Surgical History: Past Surgical History: Procedure Laterality Date CARPAL TUNNEL RELEASE Right 04/29/2018 Procedure: CARPAL TUNNEL RELEASE RIGHT; Surgeon: Trent Blanton MD; Location: [facility]; Service: Orthopaedic EXPLORATORY OF ABDOMEN 2001 Endo fundal plication LAPAROSCOPIC APPENDECTOMY N/A 02/21/2021 Procedure: LAPAROSCOPIC APPENDECTOMY; Surgeon: Rm Butler MD; Location: [facility]; Service: General LIPOMA RESECTION Left 07/04/2017 Procedure: EXCISION LIPOMA LEFT UPPER BACK; Surgeon: Gareth Em MD; Location: [facility]; Service: General LIPOMA RESECTION Bilateral 02/18/2019 Procedure: EXCISION LIPOMAS LOWER BACK TIMES TWO; Surgeon: Escobar Goodman MD; Location: [facility]; Service: General MYRINGOTOMY Bilateral TONSILLECTOMY UMBILICAL HERNIA REPAIR N/A 02/21/2021 Procedure: LAPAROSCOPIC UMBILICAL HERNIA REPAIR- NO MESH; Surgeon: Rm Butler MD; Location: [facility]; Service: General WRIST GANGLION EXCISION Right 04/29/2018 Procedure: GANGLION CYST EXCISION REMOVAL RIGHT WRIST; Surgeon: Trent Blanton MD; Location: [facility]; Service: Orthopaedic Medications: Current Outpatient Medications: dicyclomine (BENTYL) 20 MG Tablet fluticasone (FLONASE) 50 MCG/ACT Suspension omeprazole (PriLOSEC) 40 MG CAPSULE DELAYED RELEASE triamcinolone (KENALOG) 0.1 % Cream venlafaxine (EFFEXOR-XR) 150 MG CAPSULE SR 24 HR Zafemy 150-35 MCG/24HR PATCH WEEKLY Allergies: Allergies Allergen Reactions Augmentin [Amoxicillin-Pot Clavulanate] Rash and Itching Ceclor [Cefaclor] Hives and Rash Codeine Hives and Itching Rest of the history reviewed from the chart and as noted previously. Review of systems was negative, except as documented in HPI. Objective Objective: BP 132/80 (BP Location: Right Arm, BP Position: Sitting, BP Cuff Size: Regular) Pulse 73 Temp 97.3 ??F (36.3 ??C) Resp 16 Ht 5' (1.524 m) Wt 204 lb 8 oz (92.8 kg) LMP 12/26/2023 (Approximate) SpO2 98% BMI 39.94 kg/m?? General appearance: alert, no distress, cooperative, appears stated age Abdomen: soft, right upper quadrant tenderness with deep palpation. Bowel sounds normal. No masses,no organomegaly Neurologic: Alert and oriented X 3. Labs: Lab Results Component Value Date WBC 10.53 01/29/2024 HEMOGLOBIN 12.5 01/29/2024 HEMATOCRIT 34.9 01/15/2017 PLATELETCNT 359 01/29/2024 MCV 85.8 01/29/2024 No results found for: INR Lab Results Component Value Date SODIUM 139 01/29/2024 POTASSIUM 3.7 01/29/2024 CHLORIDE 105 01/29/2024 CO2VEN 25 01/29/2024 ANIONGAP 12.7 01/29/2024 GLUCOSE 86 01/29/2024 BUN 7 01/29/2024 CREATININE 0.75 01/29/2024 BCRATIO8 9 (L) 01/29/2024 TOTALPROTEIN 7.0 01/29/2024 ALBUMIN 4.2 01/29/2024 CALCIUM 9.4 01/29/2024 TBIL 0.4 01/29/2024 SGOTAST 24 01/29/2024 SGPTALT 25 01/29/2024 ALKALINEPHO 89 01/29/2024 GFRNA >60 01/29/2024 GFRA >60 01/29/2024 No results found. Review of diagnostic tests: Labs, imaging Tatiana Logan, SEED LABORATORY ASSISTANT, LPN This note was transcribed using [employer] speech recognition software. As a result, there may be unintended grammar and spelling errors. MICS MACHINE OPERATOR documented in this encounter Plan of Treatment Upcoming Encounters Date Type Department Care Team (Late st Contact Info) Description 04/28/2024 10:00 AM CERAMICS MACHINE OPERATOR Appointment [facility] Cardiology Stress [address] [place] [address] Karen Andino APRN, LPN [address] [place] [phone] Discharge Disposition: Discharged to home or Selfcare 06/02/2024 10:00 AM CERAMICS MACHINE OPERATOR [facility] [address] [place] [address] Kelin Castle, PAC [address] [place] [address] documented as of this encounter Visit Diagnoses Diagnosis RUQ pain- Primary Abdominal pain, right upper quadrant Gall stones Calculus of gallbladder without mention of cholecystitis or obstruction Gastroesophageal reflux disease, unspecified whether esophagitis present documented in this encounter Additional Health Concerns Assessment Noted Time PHQ-9 Depression Total Score: 8 01/15/20 24 4:34 PM CDT documented as of this encounter Care Teams Security Monitor Relationship Specialty Start Date End Date Kj Merlos MD [address] [address] PCP - General Family Medicine 04/09/21 Tatiana Logan APRN, LPN [address] [place] [address] Nurse Practitioner Advanced Practice Nurse 01/29/24 documented as of this encounter
--- OUTSIDE RECORDS SUMMARY | 2024-04-17 13:50 | XMS_ITS | Encounter Summary ---
Author Organization [employer] Care Team Providers Care Environmental Services Associate Name Role Phone Kj Merlos MD Primary Care Provider [phone] Tatiana Logan APRN, OVERLOCK WAISTLINE JOINER Unavailable Encounter Details Date Type Department Care Team (Latest Contact Info) Description 03/20/2024 Travel Social History Tobacco Use Types Packs/Day Years Used Date Smoking Tobacco: Light Smoker Cigarettes Smokeless Tobacco: Never Comments:1-2 cigarettes a da y Alcohol Use Standard Drinks/Week Comments Yes 0 (1 standard drink = 0.6 oz pur e alcohol) Rare [facility] Utilities Answer Date Recorded In the past 12 months has [employer], gas, oil, or water company threatened [...] often do you attend chur ch or church services? 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 file Not on file documented as of this encounter Plan of Treatment Upcoming Encounters Date Type Department Care Team (Late st Contact Info) Description 04/28/2024 10:00 AM BENEFITS MANAGER Appointment [facility] Cardiology Stress [address] [place] [phone] Karen Andino APRN, OVERLOCK WAISTLINE JOINER [address] [place] [phone] Discharge Disposition: Discharged to home or Selfcare 06/02/2024 10:00 AM BENEFITS MANAGER Office Visit [facility] - Family Medicine [facility] [address] [place] [address] Kelin Castle, PAC [address] [place] [address] documented as of this encounter Visit Diagnoses Not on filedocumented in this encounter Additional Health Concerns Assessment Noted Time PHQ-9 Depression Total Score: 8 01/15/20 24 4:34 PM CDT documented as of this encounter Care Teams Environmental Services Associate Relationship Specialty Start Date End Date Kj Merlos MD [address] [address] PCP - General Family Medicine 04/09/21 Tatiana Logan APRN, OVERLOCK WAISTLINE JOINER [address] [place] [address] Nurse Practitioner Advanced Practice Nurse 01/29/24 documented as of this encounter
--- OUTSIDE RECORDS SUMMARY | 2024-04-17 13:50 | XMS_ITS | Encounter Summary ---
Author Organization [facility] Address [address] [place] [address] Phone Care Team Providers Care Professor Of Environmental Engineering Name Role Phone jK Merlos MD Primary Care Provider Tatiana Logan APRN, WAREHOUSE MAN Unavailable Reason for Visit * Reason Comments Follow-up Encounter Details Date Type Department Care Team (Late st Contact Info) Description 03/26/2024 4:15 PM RANCH SUPERVISOR Office Visit [facility] - Family Medicine [facility] [address] [place] [address] Kelin Castle, [facility] [address] [place] [address] Anxiety (Primary Dx) Discharge Disposition: Discharged to home or Selfcare Social History Tobacco Use Types Packs/Day Years Used Date Smoking Tobacco: Light Smoker Cigarettes Smokeless Tobacco: Never Tobacco Cessation:Ready to Q uit: No; Counseling Given: Yes Comments:1-2 cigarettes a day Alcohol Use Standard Drinks/Week Comments Yes 0 (1 standard drink = 0.6 oz pur e alcohol) Rare [facility] Utilities Answer Date Recorded In the [...] often do you attend chur ch or restoration services? Patient declined 01/15/2024 Do you belong to any clubs o r organizations such as temple groups, unions, fraternal or athletic groups, or [...] place to sleep or slept in a senior living (including now)? 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 Not on file documented as of this encounter Last Filed Vital Signs Vital Sign Reading Time Taken Comments Blood Pressure 126/72 03/26/2024 4:04 PM RANCH SUPERVISOR Pulse 82 03/26/2024 4:04 PM RANCH SUPERVISOR Temperature 36.2 ??C (97.2 ??F) 03/26/2024 4:04 PM CS T Respiratory Rate 16 03/26/2024 4:04 PM RANCH SUPERVISOR Oxygen Saturation 98% 03/26/2024 4:04 PM RANCH SUPERVISOR Inhaled Oxygen Concentration - - Weight 93.7 kg (206 lb 9.6 oz) 03/26/2024 4:04 P M RANCH SUPERVISOR Height 152.4 cm (5') 03/26/2024 4:04 PM RANCH SUPERVISOR Body Mass Index 40.35 03/26/2024 4:04 PM RANCH SUPERVISOR documented in this encounter Progress Notes * Melvina Molina CMA - 03/26/2024 4:15 PM CST Esther Day, 33 y.o., female is here for Follow-up Medication Refills: Patient reports/denies need for medication refills. Orders Pended: no Requested Prescriptions No prescriptions requested or ordered in this encounter Home Medications Medication Sig Start Date End Date Taking? Authorizing Provider dicyclomine (BENTYL) 20 MG Tablet TAKE 1 TABLET BY MOUTH EVERY 6 HOURS NEEDED FOR ABDOMINAL CRAMPING/DIARRHEA 03/15/24 Yes Tatiana Logan APRN, CNP fluticasone (FLONASE) 50 MCG/ACT Suspension 2 Sprays by Nasal route daily. Use in each nostril as directed. 02/06/24 Yes Kelin Castle PAC omeprazole (PriLOSEC) 40 MG CAPSULE DELAYED RELEASE [...] have been addressed with the patient today: No BPA's H SUPERVISOR * Kelin Castle PAC - 03/26/2024 4:15 PM CST Subjective: Subjective Patient is in the office today to follow-up on medication for anxiety. Recently venlafaxine was increased to 150 mg daily. Denies any side effects from medicine. She still has frequent anxiety. Has difficulty sleeping. Sometimes racing thoughts. Discussed situational stressors has to move out of current home. Denies feeling down depressed and hopeless. Review of Systems Constitutional: Negative for chills and fever. Respiratory: Negative for cough and shortness of breath. Cardiovascular: Negative for chest pain. Psychiatric/Behavioral: Positive for sleep disturbance. Objective: Objective Physical Exam Vitals reviewed. Constitutional: Appearance: Normal appearance. She is not ill-appearing. HENT: Head: Normocephalic and atraumatic. Cardiovascular: Rate and Rhythm: Normal rate and regular rhythm. Heart sounds: No murmur heard. Pulmonary: Effort: Pulmonary effort is normal. No respiratory distress. Breath sounds: Normal breath sounds. Neurological: Mental Status: She is alert. Psychiatric: Mood and Affect: Mood normal. Assessment and Plan Assessment & Plan See Diagnoses, Orders, Follow-up, and Instructions .Diagnoses and all orders for this visit: Anxiety - busPIRone (BUSPAR) 15 MG Tablet; Take 1 Tablet by mouth 2 times daily. Anxiety is not well controlled. Will have continue with venlafaxine 150 mg daily. Suggest start BuSpar. Discussed use of medicine possible side effects can start 7 5 mg twice daily and increase by half a tablet every 5 days to reach 15 mg twice daily. Discussed counseling referral declines at this time. Return to clinic in 8 weeks for recheck notify of any problems with medication change. H SUPERVISOR documented in this encounter Plan of Treatment Upcoming Encounters Date Type Department Care Team (Late st Contact Info) Description 04/28/2024 10:00 AM RANCH SUPERVISOR Appointment [facility] Cardiology Stress [address] [facility] [place] [address] Karen Andino APRN, WAREHOUSE MAN [address] [place] [address] Discharge Disposition: Discharged to home or Selfcare 06/02/2024 10:00 AM RANCH SUPERVISOR Office [facility] - [facility] [address] [place] [address] Kelin Castle PAC [address] [place] [address] documented as of this encounter Visit Diagnoses Diagnosis Anxiety- Primary Anxiety state, unspecified documented in this encounter Additional Health Concerns Assessment Noted Time PHQ-9 Depression Total Score: 8 01/15/20 24 4:34 PM CDT documented as of this encounter Care Teams Professor Of Environmental Engineering Relationship Specialty Start Date End Date Kj Merlos MD [address] [address] PCP - General Family Medicine 04/09/21 Tatiana Logan APRN, WAREHOUSE MAN [address] [place] [address] Nurse Practitioner Advanced Practice Nurse 01/29/24 documented as of this encounter
--- OUTSIDE RECORDS SUMMARY | 2024-04-17 13:50 | XMS_ITS | Encounter Summary ---
Author Organization [facility] Address [address] [facility] [place] [address] Care Team Providers Care Correspondence Renew Clerk Name Role Phone Diana Robles E COMMERCE MARKETING ANALYST-MEDICAL RECORDS RECEPTIONIST Primary Care Provider Reason for Visit * Reason Comments Establish Care skin peel on feet Encounter Details Date Type Department Care Team (Latest Contact Info) Description 12/25/2018 10:30 AM CDT Office Visit [facility] General Dermatology [address] [place] [address] Wes Lainez MD [address] [facility] [address] [place] [address] Tinea pedis of both feet (Primary Dx); Primary focal hyperhidrosis Social History Tobacco Use Types Packs/Day Years Used Date Smoking Tobacco: Some Days Cigarettes Smokeless Tobacco: Never Alcohol Use Standard Drinks/Week Comments Yes 0 (1 standard drink = 0.6 oz pur e alcohol) Sex and Gender Information Value Date Recorded Sex Assigned at Female 06/05/2021 9:56 PM CHEESE TESTER Gender Identity Female 06/05/2021 9:56 PM CHEESE TESTER Sexual Orientation Straight 06/05/2021 9: 56 PM CHEESE TESTER documented as of this encounter Patient Instructions * Patient Instructions* Wes Lainez MD - 12/25/2018 10:55 AM CDT Return 2 months Instructions for Oral Robinul ( Glycopyrrolate) Use Robinul is used primarily to treat Peptic Ulcer Disease and to decrease excessive saliva production, but it can be used for many things, including control of sweating. If you are having continued symptoms of excessive sweating that have not improved adequately with the starting dosage, you can increase the dosage. The number of tablets may be limited by the medication's side effects, which are discussed below. Schedule an appointment for your follow up in about three months. Example of Dosing Robinul WEEK AM PM Weeks 1-2 1 mg 1 mg If symptoms do not improve sufficiently, and no significant side effect side effects occur,you may slowly increase dosage as follows: Week 3 2 mg 1 mg Week 4 2 mg 2 mg Week 5 3 mg 2 mg Week 6 3 mg 3 mg Week 7 4 mg 3 mg Week 8 4 mg 4 mg The most common side effect is dry mouth. Please be aware that this medication has potential side effects characteristic of of this class of medication which are called anti-cholinergics. These side effects include but are not limited to difficulty with urination,confusion,dizziness,drowsiness,blurred vision or tegan feeling in eyes, eye sensitivity to light, increased bloated feeling, constipation, dry skin,rapid heartbeat. You Should know thatthis medication can potentially put you in danger of overheating if you are unable to sweat during heat or exercise. You must determine how many tablets per day are needed to improve excessive sweating with mild or tolerableside effects. Decrease thedose to reduce side effects.Please stop using the medication if you have significant side effects and notify our office. If you experience pronounced difficulty passing urine or severe blurred visionor eye pain, you should seek urgent evaluation at an emergency room. This medication should not be used in patients with significant liver, kidney or unstable heart disease, patient with significant gastrointestinal disorders such as ulcerative colitis, patients with eye disease like glaucoma,patients with a history urinary retention or prostate enlargement, or patients diagnosed with myasthenia gravis. Please ask you physician about usage of this medicine if you have any of these medical problems. Usage of Robinul during has not been studied, though animal studies have not found any harm. documented in this encounter Progress Notes * Wes Lainez MD - 12/25/2018 10:36 AM CDT Patient seen and examined with Resident. Please see note for further details. I was present for thekey portions of any procedures performed. I confirm history, exam, assessment and plan with the following exceptions/additions: CC: rash HPI: Has hx rash since 2018 Occurs feet--anam b/w toes, also top Itchy to burning Not controlled. Steroid cream maybe seemed helpful at 1st, then recurred, maybe worse. Says used fungal cr & oral abx w/o help--names, dosages not recalled Some toenails seem to be changing too but hard to say b/c injures anam 5th toes freq (baby stewart, etc) Prior trt/hx: -TAC 0.025% cr: disp 10/07/18 -medrol DP: disp 12/08/18: indic unk -12/25/18: above Has hx hyperhidrosis (HH) x yrs Occurs anam face, axillae Gets drenched when most active, doesn't have to be hot Not controlled. Prior trt/hx: -several family member HH -12/25/18: above ROS: No recent relevant illnesses/fevers or [...] and unremarkable unless otherwise noted below: -feet: lat ID spaces white macerated plaques, some of which extending to dorsal feet as dry scale--CORAZON+ classic hyphae -L foot 2 dorsal toes--more linear, lichenified plaques -some toenails a little thick, brittle appearing anam bilat 5th & R 1st Assessment/Plan Tinea pedis +/- onychomycosis -not controlled -rx clotrim cr bid until convincingly clear x1 wk, then biw for maintenance: -rx oral terb 250mg qd x 6 wk, no labs needed for this duration -educ condition, course, expectations, exacerbators, complications, associations, treatment options, reviewed a/e, expectations, time for effectiveness for all meds, importance of consistency, importance of topical maintenance therapy (very often comes back if not treated) Primary focal hyperhidrosis -not controlled -rx glyco 1-4 mg bid -drysol would prob be too irritating for face -educ condition, course, expectations, exacerbators, complications, associations, [...] for axillary hyperhidrosis (Dr. Tyrone Arguelles) RTC 2 mo Wes Lainez MD documented in this encounter Plan of Treatment Not on file documented as of this encounter Visit Diagnoses Diagnosis Tinea pedis of both feet- Primary Primary focal hyperhidrosis documented in this encounter Care Teams Correspondence Renew Clerk Relationship Specialty Start Date End Date Diana Robles, E COMMERCE MARKETING ANALYST-MEDICAL RECORDS RECEPTIONIST [address] [place] [address] Dr [address] [place] [id number] PCP - General 10/22/18 documented as of this encounter
--- OUTSIDE RECORDS SUMMARY | 2024-04-17 13:50 | XMS_ITS | Encounter Summary ---
Author Organization [facility] Address [address] [place] [address] Phone Care Team Providers Care Box Lidder Name Role Phone Kj Merlos MD Primary Care Provider [phone] Tatiana Logan APRN, CNP Unavailable Reason for Referral * Radiology Services (Routine) - Closed Specialty Diagnoses / Procedures Referred By Contac t Referred To Contact Radiology Diagnoses Diarrhea, unspecified type Abdominal cramping RUQ pain Procedures US ABDOMEN COMPLETE Tatiana Logan APRN, SUZY [address] [place] [address] Phone: tel: fax: Referral ID Status Reason Start Date Expiration Date Visits Re quested Visits Authorized [id number] Closed 01/29/2024 1 1 GE MECHANIC Reason for Visit * Radiology Services (Routine) - Closed Specialty Diagnoses / Procedures Referred By Contrebecca knight Referred To Contact Radiology Diagnoses Diarrhea, unspecified type Abdominal cramping RUQ pain Procedures US ABDOMEN COMPLETE Tatiana Logan APRN, CNP [address] [place] [address] Phone: tel: fax: Referral ID Status Reason Start Date Expiration Date Visits Re quested Visits Authorized [id number] Closed 01/29/2024 1 1 Encounter Details Date Type Department Care Team (Late st Contact Info) Description 03/20/2024 10:35 AM GARAGE MECHANIC - 03/20/2024 11:59 PM GARAGE MECHANIC Hospital Encounter [facility] Ultrasound [address] [place] [address] Tatiana Logan APRN, DRAWER HARDWARE WORKER [address] [place] [address] Discharge Disposition: Discharged to home or Selfcare Social History Tobacco Use Types Packs/Day Years Used Date Smoking Tobacco: Light Smoker Cigarettes Smokeless Tobacco: Never Comments:1-2 cigarettes a da y Alcohol Use Standard Drinks/Week Comments Yes 0 (1 standard drink = 0.6 oz pur e alcohol) Rare [facility] Utilities Answer Date Recorded In the past 12 months has [employer] electric, gas, oil, or water company threatened [...] often do you attend chur ch or mu-ism services? Patient declined 01/15/2024 Do you belong to any clubs o r organizations such as sabianism groups, unions, fraternal or athletic groups, or [...] Total Score - Questions 1-9 8 06/2023 [facility] - Occupational Stress Questionnaire Answer Date Recorded [...] place to sleep or slept in a nursing home (including now)? 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 Use in each nostril as directed. 18.2 mL 02/06/2024 omeprazole (PriLOSEC) 40 MG CAPSULE DELAYED RELEASEIndication s:Gastroesophagea l reflux disease, unspecified whether esophagitis present Take 1 Capsule by mouth daily. 90 Capsule 3 01/29/2024 triamcinolone (KENALOG) 0.1 % CreamIndications: Heat rash APPLY CREAM EXTERNALLY TWICE DAILY TO RASH 80 g 10/13/2023 venlafaxine (EFFEXOR-XR) 150 MG CAPSULE SR 24 HRIndications:Anx iety Take 1 Capsule by mouth daily. 90 Capsule 1 01/15/2024 Zafemy 150-35 MCG/24HR PATCH WEEKLY APPLY 1 TOPICALLY ONCE A WEEK FOR 21 DAYS dicyclomine (BENTYL) 20 MG TabletIndications :Diarrhea, unspecified type,Abdominal cramping TAKE 1 TABLET BY MOUTH EVERY 6 HOURS NEEDED FOR ABDOMINAL CRAMPING/DIARRHE A 90 Tablet 03/15/2024 4 documented as of this encounter Plan of Treatment Upcoming Encounters Date Type Department Care Team (Late st Contact Info) Description 04/28/2024 10:00 AM GARAGE MECHANIC Appointment [facility] Cardiology Stress [address] [place] [address] Karen Andino, PROPELLER INSPECTOR, DRAWER HARDWARE WORKER [address] [place] [id number] Discharge Disposition: Discharged to home or Selfcare 06/02/2024 10:00 AM GARAGE MECHANIC Office Visit [facility] [address] [place] [address] Kelin Castle, PAC [address] [facility] [place] [address] documented as of this encounter Procedures Procedure Name Priority Date/Time Associated Diagnosis Comments US ABDOMEN COMPLETE Routine 03/20/2024 1 0:44 AM GARAGE MECHANIC Diarrhea, unspecified type Abdominal cramping RUQ pain documented in this encounter Results * US ABDOMEN COMPLETE (03/20/2024 10:44 AM GARAGE MECHANIC) Anatomical Region Laterality Modality Abdomen N/A Ultrasound 03/25/2024 6:41 AM GARAGE MECHANIC Impressions 03/25/2024 6:44 AM GARAGE MECHANIC IMPRESSION: Cholelithiasis with no secondary features of acute cholecystitis. Pancreas predominantly obscured due to shadowing bowel gas. ?? Narrative 03/25/2024 6:44 AM GARAGE MECHANIC EXAM DESCRIPTION: ?? US ABDOMEN COMPLETE REASON FOR STUDY: Right upper quadrant abdominal pain with postprandial diarrhea for 1 year worsening for 2 months. TECHNIQUE: Dynamic and static images acquired of the abdomen and recorded on PACS. Additional selected color Doppler and spectral images recorded. COMPARISON: CT abdomen and pelvis 02/20/2021. FINDINGS: PANCREAS: Predominantly obscured due to shadowing bowel gas. LIVER: Measures ??17.5 ??cm and is normal in echogenicity. There is no focal hepatic lesion. LIVER VASCULATURE: Normal directional flow of the main portal and hepatic veins. GALLBLADDER: Echogenic shadowing gallstone. ??No gallbladder wall thickening or pericholecystic fluid. ??No reported sonographic Llamas's sign. ?? BILIARY: No intrahepatic ductal dilatation. Common bile duct measures ??0.4 ??cm. INFERIOR VENA CAVA: Unremarkable. AORTA: No abdominal aortic aneurysm. RIGHT KIDNEY: Kidney measures ??10.4 ??cm. There is normal ?? echogenicity and normal cortical thickness. There is no hydronephrosis. No cystic or solid mass. LEFT KIDNEY: Kidney measures ??11.7 ??cm. There is normal ?? echogenicity and normal cortical thickness. There is no hydronephrosis. No cystic or solid mass. SPLEEN: Measures ??11.7 ??cm with no focal lesion. PERITONEAL AND PLEURAL SPACES: No ascites or pleural effusion. OTHER: No other significant abnormality. THIS IS AN ELECTRONICALLY VERIFIED FINAL REPORT 03/25/2024 6:41 AM - Electronically signed by ??Marlon Massey M.D. CH: YANELIS D: ??03/25/2024 6:41 AM T: ??03/25/2024 6:41 AM Report ID: [id number] Reading Location: ??[id number] Procedure Note Marlon Massey Jr., MD - 03/25/2024 EXAM DESCRIPTION: US ABDOMEN COMPLETE REASON FOR STUDY: Right upper quadrant abdominal pain with postprandial diarrhea for 1 year worsening for 2 months. TECHNIQUE: Dynamic and static images acquired of the abdomen and recorded on PACS. Additional selected color Doppler and spectral images recorded. COMPARISON: CT abdomen and pelvis 02/20/2021. FINDINGS: PANCREAS: Predominantly obscured due to shadowing bowel gas. LIVER: Measures 17.5 cm and is normal in echogenicity. There is no focal hepatic lesion. LIVER VASCULATURE: Normal directional flow of the main portal and hepatic veins. GALLBLADDER: Echogenic shadowing gallstone. No gallbladder wall thickening or pericholecystic fluid. No reported sonographic Llamas's sign. BILIARY: No intrahepatic ductal dilatation. Common bile duct measures 0.4 cm. INFERIOR VENA CAVA: Unremarkable. AORTA: No abdominal aortic aneurysm. RIGHT KIDNEY: Kidney measures 10.4 cm. There is normal echogenicity and normal cortical thickness. There is no hydronephrosis. No cystic or solid mass. LEFT KIDNEY: Kidney measures 11.7 cm. There is normal echogenicity and normal cortical thickness. There is no hydronephrosis. No cystic or solid mass. SPLEEN: Measures 11.7 cm with no focal lesion. PERITONEAL AND PLEURAL SPACES: No ascites or pleural effusion. OTHER: No other significant abnormality. THIS IS AN ELECTRONICALLY VERIFIED FINAL REPORT 03/25/2024 6:41 AM - Electronically signed by Marlon Massey M.D. CH: YANLEIS Report ID: [id number] Reading Location: [id number] IMPRESSION: Cholelithiasis with no secondary features of acute cholecystitis. Pancreas predominantly obscured due to shadowing bowel gas. Tatiana Logan APRN, CNP Luda US ORDERABLES Final Result documented in this encounter Visit Diagnoses Diagnosis Diarrhea, unspecified type Abdominal cramping Abdominal pain, unspecified site RUQ pain Abdominal pain, right upper quadrant documented in this encounter Additional Health Concerns Assessment Noted Time PHQ-9 Depression Total Score: 8 01/15/20 24 4:34 PM CDT documented as of this encounter Care Teams Box Lidder Relationship Specialty Start Date End Date Kj Merlos MD [address] [address] PCP - General Family Medicine 04/09/21 Tatiana Logan APRN, CNP [address] [place] [address] Nurse Practitioner Advanced Practice Nurse 01/29/24 documented as of this encounter
--- OUTSIDE RECORDS SUMMARY | 2024-04-17 13:50 | XMS_ITS | Clinical Summary ---
Author Organization [facility] Address [address] [place] [address] Phone Care Team Providers Care Vacuum Kettle Cook Name Role Phone Kj Merlos MD Primary Care Provider [phone] Tatiana Logan MANUFACTURING QUALITY MANAGER, [employer]NS[employer] Unavailable Karen Andino MANUFACTURING QUALITY MANAGER, [employer]NS[employer] Unavailable Allergies Active Allergy Reactions Criticality Noted Date Comments Amoxicillin-Pot Clavulanate Rash,Itching High 2015 Cefaclor Hives,Rash High 03/11/2016 Codeine Hives,Itching High 12/25/2018 Medications Zafemy 150-35 MCG/24HR PATCH WEEKLY APPLY 1 TOPICALLY ONCE A WEEK FOR 21 DAYS Active triamcinolone (KENALOG) 0.1 % CreamIndication s:Heat rash APPLY CREAM EXTERNALLY TWICE DAILY TO RASH 80 g 10/13/19 24 Active venlafaxine (EFFEXOR-XR) 150 MG CAPSULE SR 24 HRIndications:A nxiety Take 1 Capsule by mouth daily. 90 Capsule 1 01/15/20 24 Active omeprazole (PriLOSEC) 40 MG CAPSULE DELAYED RELEASEIndicati ons:Gastroesoph ageal reflux disease, unspecified whether esophagitis present Take 1 Capsule by mouth daily. 90 Capsule 3 01/29/20 24 Active fluticasone (FLONASE) 50 MCG/ACT Suspension 2 Sprays by Nasal route daily. Use in each nostril as directed. 18.2 mL 02/06/20 24 Active busPIRone (BUSPAR) 15 MG TabletIndicatio ns:Anxiety Take 1 Tablet by mouth 2 times daily. 60 Tablet 2 03/26/20 24 Active dicyclomine (BENTYL) 20 MG TabletIndicatio ns:Diarrhea, unspecified type,Abdominal cramping TAKE 1 TABLET BY MOUTH EVERY 6 HOURS NEEDED FOR ABDOMINAL CRAMPING/DIARR HEA 90 Tablet 04/05/20 24 Active dicyclomine (BENTYL) 20 MG TabletIndicatio ns:Diarrhea, unspecified type,Abdominal cramping TAKE 1 TABLET BY MOUTH EVERY 6 HOURS NEEDED FOR ABDOMINAL CRAMPING/DIARR HEA 90 Tablet 03/15/20 24 024 Discontinued Active Problems Problem Noted Date Diagnosed Date Tobacco dependence syndrome 02/20/2021 Umbilical hernia without obstruction and without gangrene 02/20/2021 HLD (hyperlipidemia) 10/25/2020 Vitamin D deficiency 10/25/2020 Morbid obesity 10/24/2020 Anxiety and depression 10/24/2020 S/P excision of lipoma 03/16/2019 Lipoma of skin and subcutaneous tissue 9 Primary focal hyperhidrosis 12/25/2018 Carpal tunnel syndrome of right wrist 04/29/2018 Lipoma of torso 07/01/2017 Chronic bilateral low back pain with right-sided sciatica 04/03/2016 Irritable bowel syndrome with diarrhea 6 BMI 37.0-37.9, adult 04/03/2016 Gastroesophageal reflux disease without esophagi tis 04/03/2016 Resolved Problems Problem Noted Date Diagnosed Date Resolved Date Acute appendicitis 02/20/2021 Encounters Date Type Department Care Team Description 04/05/2024 [facility]phone [facility] [address] [place] [address] Karen Andino APRN, BIOLOGY INTERNSHIP Results 04/03/2024 [facility] [address] [place] [phone] Tatiana Loagn APRN, [employer] INTERNSHIP Medication Refill 03/29/2024 9:00 AM LICENSING SPECIALIST Office Visit [facility] Cardiology - [place] [address] [place] [address] Kelin Castle PAC Go[place], Margaret Louise, APRN, CNP Chest pain, unspecified type (Primary Dx); Abnormal EKG; Hyperlipidemia, unspecified hyperlipidemia type; Tobacco dependence syndrome; Morbid obesity (HCC) Discharge Disposition: Discharged to home or Selfcare 03/26/2024 4:15 PM LICENSING SPECIALIST [facility] [address] [place] [address] Kelin Castle PAC Anxiety (Primary Dx) Discharge Disposition: Discharged to home or Selfcare 03/26/2024 11:00 AM LICENSING SPECIALIST [facility] [address] [place] [address] Tatiana Logan APRN, CNP RUQ pain (Primary Dx); Gall stones; Gastroesophageal reflux disease, unspecified whether esophagitis present Discharge Disposition: Discharged to home or Selfcare 03/26/2024 Travel 03/25/2024 Results Follow-Up [facility] Gastroenterology [facility] [address] [place] [address] Tatiana Logan APRN, CNP 03/20/2024 10:35 AM LICENSING SPECIALIST - 03/20/2024 11:59 PM LICENSING SPECIALIST Hospital Encounter [facility] Ultrasound [address] [place] [address] Tatiana Logan APRN, BIOLOGY INTERNSHIP Discharge Disposition: Discharged to home or Selfcare 03/20/2024 Travel 03/19/2024 Patient Outreach [facility] [address] [place] [address] Navigator, Digital Health Social Concerns 03/13/2024 [facility]ill [facility] [address] [place] [address] Tatiana Logan APRN, SUZY Medication Refill 03/03/2024 Telephone [facility] [address] [place] [address] Tatiana Logan APRN, SUZY 02/10/2024 [facility]phone [facility] [place] [address] Kelin Castle, PAC Results 02/06/2024 8:30 AM CDT [facility] [place] [address] Kelin Castle, SARABJIT Dysfunction of left eustachian tube (Primary Dx) Discharge Disposition: Discharged to home or Selfcare 02/06/2024 Travel 01/30/2024 3:22 PM CDT - 01/30/2024 11:59 PM CDT [facility] [address] [place] [address] Kelin Castle, PAC Discharge Disposition: Discharged to home or Selfcare 01/30/2024 2:30 PM CDT - 01/30/2024 3:21 PM CDT [facility] [address] [place] [address] Kelin Castle, PAC Discharge Disposition: Discharged to home or Selfcare 01/29/2024 1:00 PM CDT [facility] [address] [place] [address] Tatiana Logan APRN, SUZY Gastroesophageal reflux disease, unspecified whether esophagitis present (Primary Dx); Diarrhea, unspecified type; Abdominal cramping; RUQ pain Discharge Disposition: Discharged to home or Selfcare 01/29/2024 Travel from Last 3 Months Immunizations Immunization Administration Dates Next Due DTP Vaccine 12/13/1993, 1,08/26/1989,1989,03/19/1989 Hib Vaccine,unspecified Formulation 10/16/1990,0 10/14/1990 Influenza Vaccine 03/04/2019,03/08/2014 Influenza Vaccine greater than 3 yrs 01/14/2019 Influenza Vaccine, Quadrivalent, PF 01/12,12/29/2020,04/02/2017,2016() Influenza Vaccine,unspecifie d Formulation 03/04/2019 Influenza Virus Vaccine, Whole Virus 03/25/2006 Influenza, Injectable, Quadrivalent 09/2019,02/09/2019,03/16/2018,2015 Influenza, Seasonal, Injecta ble, Undefined 01/14/2019,02/28/2015 Influenza,Split Virus,Trivalent,Injectable,PF 01/15/2024 MMR Vaccine 01/05/1992,03/17/1990 OPV 12/13/1993, 1,08/26/1989,1989,03/19/1989 Pneumococcal Vaccine - 13 Valent 04/01/2017() Pneumococcal Vaccine Adult - 23 Valent 12/29/2020 TDAP Vaccine 12/18/2021,04/02/2017,03/04/2017 Family History Medical History Relation Name Comments No Known Problems Daughter 1 No Known Problems Daughter 2 No Known Problems Maternal Grandfather Cancer Maternal Grandmother Liver Cancer Maternal Grandmother Skin Cancer Maternal Grandmother Seizures Maternal Uncle 1 Epilepsy Seizures Maternal Uncle 2 Epilepsy Anxiety disorder Mother Relation Name Status Comments Daughter 1 Alive Daughter 2 Alive Maternal Grandfather Alive Maternal Grandmother Maternal Uncle 1 Alive Maternal Uncle 2 Alive Mother Alive Social History Tobacco Use Types Packs/Day Years Used Date Smoking Tobacco: Light Smoker Cigarettes Smokeless Tobacco: Never Tobacco Cessation:Ready to Q uit: Not Asked; Counseling Given: Not Answered Comments:1-2 cigarettes a day Alcohol Use Standard Drinks/Week Comments Yes 0 (1 standard drink = 0.6 oz pur e alcohol) Rare C Utilities Answer Date Recorded In the past 12 months has [employer], gas, oil, or water [employer] threatened to shut off services in your [...] any clubs o r organizations such as buddhism groups, unions, fraternal or athletic groups, or [...] Total Score - Questions 1-9 8 06/2023 [employer] of Occupat ional Health - Occupational Stress [...] place to sleep or slept in a [place] facility (including now)? 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 file Not on file Last Filed Vital Signs Vital Sign Reading Time Taken Comments Blood Pressure 124/65 03/29/2024 9:01 AM LICENSING SPECIALIST Pulse 77 03/29/2024 9:01 AM LICENSING SPECIALIST Temperature 36.2 ??C (97.2 ??F) 03/29/2024 9:01 AM CS T Respiratory Rate 22 03/29/2024 9:01 AM LICENSING SPECIALIST Oxygen Saturation 98% 03/29/2024 9:01 AM LICENSING SPECIALIST Inhaled Oxygen Concentration - - Weight 90.7 kg (200 lb) 03/29/2024 9:01 AM LICENSING SPECIALIST Height 152.4 cm (5') 03/29/2024 9:01 AM LICENSING SPECIALIST Body Mass Index 39.06 03/29/2024 9:01 AM LICENSING SPECIALIST Plan of Treatment Upcoming Encounters Date Type Department Care Team (Late st Contact Info) Description 04/28/2024 10:00 AM LICENSING SPECIALIST Appointment [facility] Cardiology Stress [address] [place] [address] Karen Andino, MANUFACTURING QUALITY MANAGER, [employer]OLOG[employer] INTERNSHIP [address] [place] [address] Discharge Disposition: Discharged to home or Selfcare 06/02/2024 10:00 AM LICENSING SPECIALIST [facility] [address] [place] [address] Kelin Castle, PAC [address] [place] [address] Health Maintenance Due Date Last Done Comments Hepatitis C Virus (HCV) Screening 1990 Hepatitis B Immunization (1 of 3 - 19+ 3-dose series) 12/11/2007 HPV/Cotest 2018 Pneumococcal Immunization Combined (2 of 2 - PCV) 12/29/2021 12/29/2020 Cervical Cancer Screening (CCS) 05/03/2026 Pap Smear 05/03/2026 05/03/2023 DTaP/Tdap/Td Immunization (9 - Td or Tdap) 12/19/2031 12/18/2021, 04/02/2017, 03/04/2017, Additional history exists Respiratory Syncytial Virus (RSV) Immunization (Adult) (1 - 1-dose 75+ series) 12/11/2063 Influenza Immunization Completed , 01/24/2022, 12/29/2020, Additional history exists Meningococcal Immunization (ACWY) Aged Out No longer eligible based on patient's age to complete this topic Rotavirus Immunization Aged Out No lo nger eligible based on patient's age to complete this topic SARS-COV-2 Immunization Discontinued Procedures Procedure Name Priority Date/Time Associated Diagnosis Comments LIPID PANEL Routine 03/29/2024 9:59 AM LICENSING SPECIALIST Chest pain, unspecified type US ABDOMEN COMPLETE Routine 03/20/2024 1 0:44 AM LICENSING SPECIALIST Diarrhea, unspecified type Abdominal cramping RUQ pain ADULT TRANS THORACIC ECHO 2D COMPLT W CONT Routine 01/30/2024 4:55 PM CDT Syncope, unspecified syncope type EKG 12 LEAD Routine 01/30/2024 2:40 PM CDT Syncope, unspecified syncope type CBC WITH AUTO DIFFERENTIAL Routine 01/29/2024 2:15 PM CDT Diarrhea, unspecified type IMMUNOGLOBULIN A (IGA) - CELIAC Routine 01/29/2024 2:15 PM CDT Diarrhea, unspecified type GLIADIN IGA ANTIBODY - CELIAC Routine 01/29/2024 2:15 PM CDT Diarrhea, unspecified type TISSUE TRANSGLUTAMINASE IGA - CELIAC Routine 01/29/2024 2:15 PM CDT Diarrhea, unspecified type MAGNESIUM (MG) Routine 01/29/2024 2:15 PM CDT Syncope, unspecified syncope type CELIAC ANTIBODY PANEL Routine 01/29/2024 2:15 PM CDT Diarrhea, unspecified type COMPLETE BLOOD COUNT (CBC) WITH DIFF Routine 01/29/2024 2:15 PM CDT Diarrhea, unspecified type CMP (COMPREHENSIVE METABOLIC PANEL) Routine 01/29/2024 2:15 PM CDT Diarrhea, unspecified type from Last 3 Months Results * (ABNORMAL) LIPID PANEL (03/29/2024 9:59 AM LICENSING SPECIALIST) CHOLESTEROL 211(H) <200 mg/dL 03/29/2024 10:36 AM LICENSING SPECIALIST [facility] TRIGLYCERIDES 309(H) <150 mg/dL 03/29/2024 10:36 AM LICENSING SPECIALIST [facility] HDL CHOLESTEROL 48 >40 mg/dL 10:36 AM [facility] LDL 101 <130 mg/dL 03/29/2024 10:[address] [facility] VLDL 62(H) 10 - 50 mg/dL 03/29/2024 10:[address] [facility] CHOL/HDL RATIO 4.4 0.0 - 4.4 03/29/2024 10:36 AM [facility] NON-HDL CHOLESTEROL 163(H) <130 mg/dL 03/29/2024 10:36 AM [facility] IS THE PATIENT REQUIRED TO BE FASTING? Yes 03/29/2024 10:36 AM [facility] HAS THE PATIENT BEEN FASTING? Yes 03/29/2024 10:36 AM [facility] Blood Venipuncture / Unknown 03/29/2024 9:59 AM LICENSING SPECIALIST 03/29/2024 10:09 AM LICENSING SPECIALIST Karen Andino APRN, BIOLOGY INTERNSHIP CHEMISTRY RHEA HURST Final Result [facility] [address] [place] [address] * US ABDOMEN COMPLETE (03/20/2024 10:44 AM LICENSING SPECIALIST) Anatomical Region Laterality Modality Abdomen N/A Ultrasound 03/25/2024 6:41 AM LICENSING SPECIALIST Impressions 03/25/2024 6:44 AM LICENSING SPECIALIST IMPRESSION: Cholelithiasis with no secondary features of acute cholecystitis. Pancreas predominantly obscured due to shadowing bowel gas. ?? Narrative 03/25/2024 6:44 AM LICENSING SPECIALIST EXAM DESCRIPTION: ?? US ABDOMEN COMPLETE REASON [...] Electronically signed by ??Marlon Massey M.D. CH: D: ??03/25/2024 6:41 AM T: ??03/25/2024 6:41 AM Report ID: [id number] Reading Location: ??[id number] Procedure Note Marlon Massey Jr., MD - [...] Electronically signed by Marlon Massey M.D. CH: YANELIS Report ID: [id number] Reading Location: [place] [address] IMPRESSION: Cholelithiasis with no secondary features of acute cholecystitis. Pancreas predominantly obscured due to shadowing bowel gas. us Tatiana Logan MANUFACTURING QUALITY MANAGER, BIOLOGY INTERNSHIP IMG US ORDERABLES Final Result * ADULT TRANS THORACIC ECHO 2D COMPLT W CONT (01/30/2024 4:55 PM CDT) AV Peak Grad mmHg 9.49 mmHg RESULTING AGENCY Mean Aortic Valve Gradient (MAVG) 5 mmHg RESULTING AGENCY LV end ana diam cm 2.75 cm RESULTING AGENCY LV end sys diam cm 1.9 cm RESULTING AGENCY Aortic Root Diam cm 2.4 cm RESULTING AGENCY LA vol index ml/m2 22 ml/m2 RESULTING AGENCY LVOT Peak Garret m/sec 1.2 m/sec RESULTING AGENCY AV Peak Garret m/sec 1.54 m/sec RESULTING AGENCY MVA by PHT cm2 3.73 cm2 RESUL TING AGENCY E/A Ratio 1.74 RESULTING AGENCY E/E' 6.6 RESULTING AGENCY AV Area (VTI) cm2 2.59 cm2 RESULTING AGENCY SEPTUM DIASTOLIC CM 1.46 cm RESULTING AGENCY PW DIASTOLIC CM 2.03 cm RESU LTING AGENCY LA VOLUME 41 ml RESULTING AGENCY Anatomical Region Laterality Modality CARDIO N/A Ultrasound Narrative 01/30/2024 8:28 PM CDT Transthoracic Echocardiography Report (TTE) Patient name ?SHAY GAMEZ N ? 1990 Patient ID (UPI) ?[id number] ? Indications: Syncope. Study Date01/30/2024 Technical quality: Adequate Limitation Reason: Lung artifact Type of Study: TTE procedure: Limited or F/U, Adult Trans Thoracic Echo 2D Complt W Cont. Priority:RoutineHR: 76 bpmBP: 121/65 mmHg Conclusions Summary - Normal LV size, systolic and diastolic function - Estimated LVEF 60-65% (calculated biplane at 58%) - Normal right ventricular cavity size and normal systolic function. - No significant valvular abnormalities. Findings Mitral Valve The mitral valve is normal. There is no evidence of mitral stenosis. There is no significant mitral regurgitation. Aortic Valve The aortic valve is trileaflet with normal leaflet excursion. There is no evidence of aortic valve stenosis. There is no significant aortic valve insufficiency. Tricuspid Valve The tricuspid valve is normal. There is no evidence of tricuspid stenosis. There is no significant tricuspid regurgitation. There is no evidence of pulmonary hypertension. Pulmonic Valve The pulmonic valve structure appears normal. There is no evidence of pulmonic stenosis. There is no significant pulmonic valve regurgitation. Left Atrium The left atrium size is normal. Left Ventricle - Normal LV size, systolic and diastolic function - Estimated LVEF 60-65% (calculated biplane at 58%) Right Atrium The right atrium size is normal. Right Ventricle - Normal right ventricular cavity size and normal systolic function. Pericardial Effusion The pericardium is normal. There is no pericardial effusion visualized. Miscellaneous Aortic root and proximal ascending aorta are normal in size. Atrial septum appears intact. IVC is normal in size and respiratory response. Aortic arch appears normal. Valves Mitral Valve Area (PHT): 3.73 cm^2 Peak E-Wave: 1.01 m/s ?Deceleration Time: 201 msec Peak A-Wave: 0.58 m/s Peak Gradient: 4.08 mmHg P1/2t: 59 msec Tissue Doppler E' Velocity: 0.05 m/s ?E/E':6.6 E/A Ratio: 1.74 ?E/Lat E': 6.6 ?E/Med E':16.9 Aortic Valve Area (continuity): 2.59 cm^2 ? Mean Velocity: 1.03 m/s Area (VTI):2.59 cm^2 ? Mean Gradient: 5 mmHg Peak Velocity: 1.54 m/s ?AV VTI: 30.5 cm Peak Gradient: 9.49 mmHg Tricuspid Valve Peak E-Wave: 0.58 m/s Peak Gradient: 1.35 mmHg Pulmonic Valve Peak Velocity: 1.15 m/s Peak Gradient: 5.29 mmHg LVOT Peak Velocity: 1.2 m/s ? Mean Velocity: 0.75 m/s Peak Gradient: 6 mmHg ?Mean Gradient: 3 mmHg LVOT Diameter: 2.1 cm ?LVOT VTI: 22.8 cm Stroke Volume: 79 ml ? Stroke Volume Index: 41.8 ml/m^2 Structures Left Ventricle Diastolic Dimension: 2.75 cm ? Systolic Dimension: 1.9 cm Septum Diastolic: 1.46 cm ?Septum Systolic: 1.71 cm PW Diastolic: 2.03 cm ?PW Systolic: 2.09 cm Diastolic Length: 28.7 cm ?Systolic Length: 17.8 cm EF Calculated: 57.94% ?CI: 3.17 l/min*m^2 CO: 6 l/min RWT: 1.48 ?LV EDV: 107 ml FS: 30.91 % ?LV EDV Index: 57 m^2 LV Length: 7.66 cm ? LV ESV: 45 ml LVOT Diameter: 2.1 cm ?LV ESV Index: 24 m^2 Right Ventricle ? RVOT (PLAX) diameter:2.42 cm Tissue Doppler RV S': 11.4 TAPSE: 2.14 cm Left Atrium LA Systolic Pressure: 10.31 mmHg ? LA Area: 16.8 cm^2 ?LA Volume: 41 ml ?LA Index: 22ml/m^2 Right Atrium ? RA Area: 13 cm^2 Great Vessels Aorta ? Ascending Aorta: 3 cm Aorta Root:2.4 cm ? Ascending Aorta Index:1.59 cm/m^2 Demographics Age ?33 ?Gender ? Female Race ? Height ? 60.98 in. ?Weight ? 200 lbs. ?BMI (BSA) ?37.81 kg/m^2 (1.89 ? m^2) Sales Operations Specialist ?Cecilio Silver Interpreting ? Lin ? Referring Physician ?Shilpkumar ?Physician ?Von ?Charles Procedure Note Charles Longoria MD - 01/30/2024 Transthoracic Echocardiography Report (TTE) Patient name SHAY GAMEZ Estefania Cabrera 1990 Patient ID (UPI) [id number] Indications: Syncope. Study Date01/30/2024 Technical quality: Adequate Limitation Reason: Lung artifact Type of Study: TTE procedure: Limited or F/U, Adult Trans Thoracic Echo 2D Complt W Cont. Priority:RoutineHR: 76 bpmBP: 121/65 mmHg Conclusions Summary - Normal LV size, systolic and diastolic function - Estimated LVEF 60-65% (calculated biplane at 58%) - Normal right ventricular cavity size and normal systolic function. - No significant valvular abnormalities. Findings Mitral Valve The mitral valve is normal. There is no evidence of mitral stenosis. There is no significant mitral regurgitation. Aortic Valve The aortic valve is trileaflet with normal leaflet excursion. There is no evidence of aortic valve stenosis. There is no significant aortic valve insufficiency. Tricuspid Valve The tricuspid valve is normal. There is no evidence of tricuspid stenosis. There is no significant tricuspid regurgitation. There is no evidence of pulmonary hypertension. Pulmonic Valve The pulmonic valve structure appears normal. There is no evidence of pulmonic stenosis. There is no significant pulmonic valve regurgitation. Left Atrium The left atrium size is normal. Left Ventricle - Normal LV size, systolic and diastolic function - Estimated LVEF 60-65% (calculated biplane at 58%) Right Atrium The right atrium size is normal. Right Ventricle - Normal right ventricular cavity size and normal systolic function. Pericardial Effusion The pericardium is normal. There is no pericardial effusion visualized. Miscellaneous Aortic root and proximal ascending aorta are normal in size. Atrial septum appears intact. IVC is normal in size and respiratory response. Aortic arch appears normal. Valves Mitral Valve Area (PHT): 3.73 cm^2 Peak E-Wave: 1.01 m/s Deceleration Time: 201 msec Peak A-Wave: 0.58 m/s Peak Gradient: 4.08 mmHg P1/2t: 59 msec Tissue Doppler E' Velocity: 0.05 m/s E/E':6.6 E/A Ratio: 1.74 E/Lat E': 6.6 E/Med E':16.9 Aortic Valve Area (continuity): 2.59 cm^2 Mean Velocity: 1.03 m/s Area (VTI):2.59 cm^2 Mean Gradient: 5 mmHg Peak Velocity: 1.54 m/s AV VTI: 30.5 cm Peak Gradient: 9.49 mmHg Tricuspid Valve Peak E-Wave: 0.58 m/s Peak Gradient: 1.35 mmHg Pulmonic Valve Peak Velocity: 1.15 m/s Peak Gradient: 5.29 mmHg LVOT Peak Velocity: 1.2 m/s Mean Velocity: 0.75 m/s Peak Gradient: 6 mmHg Mean Gradient: 3 mmHg LVOT Diameter: 2.1 cm LVOT VTI: 22.8 cm Stroke Volume: 79 ml Stroke Volume Index: 41.8 ml/m^2 Structures Left Ventricle Diastolic Dimension: 2.75 cm Systolic Dimension: 1.9 cm Septum Diastolic: 1.46 cm Septum Systolic: 1.71 cm PW Diastolic: 2.03 cm PW Systolic: 2.09 cm Diastolic Length: 28.7 cm Systolic Length: 17.8 cm EF Calculated: 57.94% CI: 3.17 l/min*m^2 CO: 6 l/min RWT: 1.48 LV EDV: 107 ml FS: 30.91 % LV EDV Index: 57 m^2 LV Length: 7.66 cm LV ESV: 45 ml LVOT Diameter: 2.1 cm LV ESV Index: 24 m^2 Right Ventricle RVOT (PLAX) diameter:2.42 cm Tissue Doppler RV S': 11.4 TAPSE: 2.14 cm Left Atrium LA Systolic Pressure: 10.31 mmHg LA Area: 16.8 cm^2 LA Volume: 41 ml LA Index: 22ml/m^2 Right Atrium RA Area: 13 cm^2 Great Vessels Aorta Ascending Aorta: 3 cm Aorta Root:2.4 cm Ascending Aorta Index:1.59 cm/m^2 Demographics Age 33 Gender Female Race Height 60.98 in. Weight 200 lbs. BMI (BSA) 37.81 kg/m^2 (1.89 m^2) Sales Operations Specialist Cecilio Lin Referring Physician Yusuf Physician [place] us Kelin Castle [facility] IMG ECHO ORDERABLES Darlene l Result * EKG 12 LEAD (01/30/2024 2:40 PM CDT) Ventricular Rate 73 BPM EXTERNAL EKG Atrial Rate 73 BPM EXTERNAL EKG P-R Interval 144 ms EXTERNAL EKG QRS Duration 88 ms EXTERNAL EKG Q-T Duration 390 ms EXTERNAL EKG QTC CALCULATION 429 ms EXTERNAL EKG P [place] 23 degrees EXTERNAL EKG R [place] -15 degrees EXTERNAL EKG T [place] 51 degrees EXTERNAL EKG 01/30/2024 2:40 PM CDT Impressions EXTERNAL EKG - 02/07/2024 9:56 PM CDT Normal sinus rhythm Minimal voltage criteria for LVH, may be normal variant ( Miguel Angel product ) Inferior infarct , age undetermined Abnormal ECG No previous ECGs available Confirmed by hCarles Longoria ([id number]) on 02/07/2024 9:56:08 PM Narrative Procedure Note Charles Longoria MD - 02/07/2024 IMPRESSION: Normal sinus rhythm Minimal voltage criteria for LVH, may be normal variant ( Miguel Angel product) Inferior infarct , age undetermined Abnormal ECG No previous ECGs available Confirmed by Charles Longoria ([id number]) on 02/07/2024 9:56:08 PM Kelin Castle [facility] IMG ECG ORDERABLES Final Result EXTERNAL EKG * IMMUNOGLOBULIN A (IGA) - CELIAC (01/29/2024 2:15 PM CDT) IMMUNOGLOBULIN A 70 65 - 421 mg/dL 01/29/2024 9:15 PM CDT [facility] Blood Venipuncture / Unknown 01/29/2024 2:15 PM CDT 01/29/2024 2:45 PM CDT Kelin Castle [facility] IMMUNOLOGY ORDERABLES Fi nal Result [facility] [address] [place] [address], [place] * GLIADIN IGA ANTIBODY - CELIAC (01/29/2024 2:15 PM CDT) DEAMIDATED GLIADIN IGA 2.9 <15.0 U/mL 01/29/2024 9:51 PM CDT [facility] Blood Venipuncture / Unknown 01/29/2024 2:15 PM CDT 01/29/2024 2:45 PM CDT Narrative [facility] - 01/29/2024 9:51 PM CDT Antibody testing was performed by multiplex flow immunoassay on the [employer] platform. Kelin Cardona PAC IMMUNOLOGY ORDERABLES Fi nal Result Performing Organization Address [facility]/ZIP Co de Phone Number LOMA [facility] [address] [place] [place] [address], [place] * TISSUE TRANSGLUTAMINASE IGA - CELIAC (01/29/2024 2:15 PM CDT) TTG IGA <0.5 <15.0 U/mL 01/29/2024 9:51 PM CDT [facility] Blood Venipuncture / Unknown 01/29/2024 2:15 PM CDT 01/29/2024 2:45 PM CDT Narrative [facility] - 01/29/2024 9:51 PM CDT Antibody testing was performed by multiplex flow immunoassay on the BioPlex platform. Kelin Castle PAC IMMUNOLOGY ORDERABLES Fi nal Result [facility] [address] [place] [address], [place] * (ABNORMAL) CBC WITH AUTO DIFFERENTIAL (01/29/2024 2:15 PM CDT) WBC 10.53 4.00 - 12.00 10(3)/mcL 01/29/2024 2:47 PM CDT [facility] RBC 4.44 3.80 - 5.30 10(6)/mcL 01/29/2024 2:[address] [facility] HEMOGLOBIN (HGB) 12.5 12.0 - 15.8 g/dL 01/29/2024 2:[address] [facility] HEMATOCRIT (HCT) 38.1 36.0 - 47.0 % 01/29/2024 2:[address] [facility] MCV 85.8 82.0 - 96.0 fL 01/29/2024 2:[address] [facility] MCH 28.2 26.0 - 34.0 pg 01/29/2024 2:[address] [facility] MCHC 32.8 31.0 - 36.0 g/dL 01/29/2024 2:47 PM CDT [facility] PLATELET COUNT 359 140 - 440 10(3)/mcL 01/29/2024 2:[address] [facility] RDW 13.0 11.8 - 15.5 % 01/29/2024 2:47 PM CDT [facility] MPV 9.2(L) 9.7 - 12.4 fL 01/29/2024 2:47 PM CDT [facility] NEUTROPHILS 67.7 47.0 - 73.0 % 01/29/2024 2:[address] [facility] LYMPHOCYTES 24.6 18.0 - 42.0 % 01/29/2024 2:[address] [facility] MONOCYTES 4.5 4.0 - 12.0 % 01/29/2024 2:47 PM CDT [facility] EOSINOPHILS 2.5 0.0 - 5.0 % 01/29/2024 2:[address] [facility] BASOPHILS 0.7 0.0 - 1.0 % 01/29/2024 2:[address] [facility] ABSOLUTE NEUTROPHILS 7.14 1.60 - 7.70 10(3)/mcL 01/29/2024 2:[address] [facility] ABSOLUTE LYMPHOCYTES 2.59 1.30 - 3.20 10(3)/mcL 01/29/2024 2:[address] [facility] ABSOLUTE MONOCYTES 0.47 0.20 - 1.00 10(3)/mcL 01/29/2024 2:[address] [facility] ABSOLUTE EOSINOPHIL 0.26 0.00 - 0.40 10(3)/mcL 01/29/2024 2:[address] [facility] ABSOLUTE BASOPHILS 0.07 0.00 - 0.10 10(3)/mcL 01/29/2024 2:[address] [facility] NRBC PER 100 WBC 0 01/29/20 2:[address] [facility] Blood Venipuncture / Unknown 01/29/2024 2:15 PM CDT 01/29/2024 2:45 PM CDT us Kelin Castle PAC HEMATOLOGY ORDERABLES Fi nal Result Performing Organization Address City/[facility]/ZIP Co de Phone Number [facility] [address] [place] [address] * MAGNESIUM (MG) (01/29/2024 2:15 PM CDT) MAGNESIUM 1.9 1.6 - 2.6 mg/dL 01/29/2024 3:07 PM CDT [facility] Blood Venipuncture / Unknown 01/29/2024 2:15 PM CDT 01/29/2024 2:45 PM CDT Kelin Castle PAC CHEMISTRY ORDERABLES Fin al Result [facility] [address] [place] [address] * (ABNORMAL) CMP (COMPREHENSIVE METABOLIC PANEL) (01/29/2024 2:15 PM CDT) SODIUM 139 136 - 145 mmol/L 01/29/2024 3:07 PM CDT [facility] POTASSIUM 3.7 3.5 - 5.1 mmol/L 01/29/2024 3:07 PM CDT [facility] CHLORIDE 105 98 - 107 mmol/L 01/29/2024 3:07 PM CDT [facility] CO2, VENOUS 25 22 - 30 mmol/L 01/29/2024 3:07 PM CDT [facility] ANION GAP 12.7 <18.0 mmol/L 01/29/2024 3:07 PM CDT [facility] GLUCOSE 86 70 - 99 mg/dL 01/29/2024 3:07 PM CDT [facility] BUN 7 5 - 18 mg/dL 01/29/2024 3:07 PM CDT [facility] CREATININE, BLOOD 0.75 0.60 - 1.00 mg/dL 01/29/2024 3:07 PM CDT [facility] BUN/CREATININE RATIO 9(L) 12 - 20 ratio 01/29/2024 3:07 PM CDT [facility] TOTAL PROTEIN 7.0 6.3 - 8.2 g/dL 01/29/2024 3:07 PM CDT [facility] ALBUMIN 4.2 3.5 - 5.0 g/dL 01/29/2024 3:07 PM CDT [facility] A/G RATIO 1.5 1.0 - 2.2 01/29/2024 3:07 PM CDT [facility] CALCIUM 9.4 8.7 - 10.5 mg/dL 01/29/2024 3:07 PM CDT [facility] T BILI 0.4 0.2 - 1.2 mg/dL 01/29/2024 3:07 PM CDT [facility] SGOT (AST) 24 5 - 34 U/L 01/29/2024 3:07 PM CDT [facility] SGPT (ALT) 25 0 - 55 U/L 01/29/2024 3:[address] [facility] ALKALINE PHOSPHATASE 89 40 - 150 U/L 01/29/2024 3:[address] [facility] IS THE PATIENT REQUIRED TO BE FASTING? No 01/29/2024 3:07 PM CDT [facility] GFR, ESTIMATED >60 >=60 01/29/2024 3:[address] [facility] Comment: Creatinine Clearance is the preferred criteria for selecting drug dose adjustments in renally impaired patients. ??The GFR is provided as additional pertinent clinical information. GFR is reported in mL/min/1.73 sq m. Calculation based on the Chronic Kidney Disease Epidemiology Collaboration (CKD- EPI) equation refit without adjustment for race. GFR, EST. >60 >=60 024 3:[address] [facility] GFR, EST. NONAFRICAN >60 >=60 01/29/2024 3:[address] [facility] Blood Venipuncture / Unknown 01/29/2024 2:15 PM CDT 01/29/2024 2:45 PM CDT us Kelin Castle PAC CHEMISTRY ORDERABLES Fin al Result Performing Organization Address City/State/[facility] Co de Phone Number [facility] [address] [place] [address] from Last 3 [place] [address] MEDICAID [facility] Advance Directives * Full Code (Latest Code Status on File) Date Activated Date Inactivated Comments 02/20/2021 10:38 PM 02/22/2021 2:06 PM CPR-Full T reatment: FULL ARREST: Attempt Resuscitation/CPR wit intubation and mechanical ventilation. PRE-ARREST: Use entire range of life support measures to stabilize the patient. * Full Code Date Activated Date Inactivated Comments 03/31/2017 6:40 AM 04/02/2017 9:18 PM CPR-Full T reatment: FULL ARREST: Attempt Resuscitation/CPR wit intubation and mechanical ventilation. PRE-ARREST: Use entire range of life support measures to stabilize the patient. * Full Code Date Activated Date Inactivated Comments 03/24/2017 7:55 PM 03/24/2017 11:14 PM CPR-Full Treatment: FULL ARREST: Attempt Resuscitation/CPR wit intubation and mechanical ventilation. PRE-ARREST: Use entire range of life support measures to stabilize the patient. Care Teams Vacuum Kettle Cook Relationship Specialty Start Date End Date Kj Merlos MD [address] [address] PCP - General Family Medicine 04/09/21 Tatiana Logan APRN, [employer] [address] [place] [address] Nurse Practitioner Advanced Practice Nurse 01/29/24 Karen Andino APRN, SUZY [address] [place] [address] Nurse Practitioner Cardiology 03/29/24
--- OUTSIDE RECORDS SUMMARY | 2024-04-17 13:50 | XMS_ITS | Encounter Summary ---
Author Organization [facility] Address [address] [place] [address] Phone Care Team Providers Care Piping Drafter Name Role Phone Kj Merlos MD Primary Care Provider [phone] Tatiana Logan APRN, TIP BANDER Unavailable Reason for Referral * Radiology Services (Routine) - Closed Specialty Diagnoses / Procedures Referred By Contac t Referred To Contact Radiology Diagnoses Syncope, unspecified syncope type Procedures EKG 12 LEAD Kelin Castle, PAC [address] [place] [address] Phone: tel: fax: Referral ID Status Reason Start Date Expiration Date Visits Re quested Visits Authorized [id number] Closed 01/15/2024 1 1 Reason for Visit * Radiology Services (Routine) - Closed Specialty Diagnoses / Procedures Referred By Contac t Referred To Contact Radiology Diagnoses Syncope, unspecified syncope type Procedures EKG 12 LEAD Kelin Castle PAC [address] [place] [address] Phone: tel: fax: Referral ID Status Reason Start Date Expiration Date Visits Re quested Visits Authorized [id number] Closed 01/15/2024 1 1 Encounter Details Date Type Department Care Team (Latest Contact Info) Description 01/30/2024 2:30 PM CDT - 01/30/2024 3:21 PM CDT Hospital Encounter [facility] Cardiology Services [address] [place] [id number] Kelin Castle, PAC [address] [place] [address] Discharge Disposition: Discharged to home or Selfcare Social History Tobacco Use Types Packs/Day Years Used Date Smoking Tobacco: Light Smoker Cigarettes Smokeless Tobacco: Never Comments:1-2 cigarettes a da y Alcohol Use Standard Drinks/Week Comments Yes 0 (1 standard drink = 0.6 oz pur e alcohol) Rare [facility] Utilities Answer Date Recorded In the past 12 months has th e electric, gas, oil, or water company [...] often do you attend chur ch or rastafari services? Patient declined 01/15/2024 Do you belong to any clubs o r organizations such as voodoo groups, unions, fraternal or athletic groups, or [...] Total Score - Questions 1-9 8 06/2023 [facility] of Occupat ional [facility] - Occupational Stress Questionnaire Answer Date [...] place to sleep or slept in a mcfp (including now)? 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 90 Tablet 1 01/29/2024 4 documented as of this encounter Plan of Treatment Upcoming Encounters Date Type Department Care Team (Late st Contact Info) Description 04/28/2024 10:00 AM DEBRANDER [facility] [address] [place] [address] Karen Andino APRN, TIP BANDER [address] [place] [address] Discharge Disposition: Discharged to home or Selfcare 06/02/2024 10:00 AM DEBRANDER Office Visit [facility] [address] [place] [address] Kelin Castle, PAC [address] [place] [address] documented as of this encounter Procedures Procedure Name Priority Date/Time Associated Diagnosis Comments EKG 12 LEAD Routine 01/30/2024 2:40 PM CDT Syncope, unspecified syncope type documented in this encounter Results * EKG 12 LEAD (01/30/2024 2:40 PM CDT) Ventricular Rate 73 BPM EXTERNAL EKG Atrial Rate 73 BPM EXTERNAL EKG P-R Interval 144 ms EXTERNAL EKG QRS Duration 88 ms EXTERNAL EKG Q-T Duration 390 ms EXTERNAL EKG QTC CALCULATION 429 ms EXTERNAL EKG P [place] 23 degrees EXTERNAL EKG R [place] -15 degrees EXTERNAL EKG T [place] 51 degrees EXTERNAL EKG 01/30/2024 2:40 PM CDT Impressions EXTERNAL EKG - 02/07/2024 9:56 PM CDT Normal sinus rhythm Minimal voltage criteria for LVH, may be normal variant ( [place] product ) Inferior infarct , age undetermined Abnormal ECG No previous ECGs available Confirmed by Charles Longoria ([id number]) on 02/07/2024 9:56:08 PM Narrative Procedure Note Charles Longoria MD - 02/07/2024 IMPRESSION: Normal sinus rhythm Minimal voltage criteria for LVH, may be normal variant ( [place] Angel product) Inferior infarct , age undetermined Abnormal ECG No previous ECGs available Confirmed by Charles Longoria ([id number]) on 02/07/2024 9:56:08 PM us Kelin Castle PAC IMG ECG ORDERABLES Final Result EXTERNAL EKG documented in this encounter Visit Diagnoses Diagnosis Syncope, unspecified syncope type documented in this encounter Additional Health Concerns Assessment Noted Time PHQ-9 Depression Total Score: 8 01/15/20 24 4:34 PM CDT documented as of this encounter Care Teams Piping Drafter Relationship Specialty Start Date End Date Kj Merlos MD [address] [address] PCP - General Family Medicine 04/09/21 Tatinaa Logan APRN, TIP BANDER [address] [place] [address] Nurse Practitioner Advanced Practice Nurse 01/29/24 documented as of this encounter
--- OUTSIDE RECORDS SUMMARY | 2024-04-17 13:51 | XMS_ITS | Encounter Summary ---
Author Organization [facility] Address [address] [place] [address] Phone Care Team Providers Care Specimen Collector Name Role Phone Kj Merlos MD Primary Care Provider [phone] Encounter Details Date Type Department Care Team (Late st Contact Info) Description 06/24/2023 9:25 AM CDT [facility] [address] [place] [address] Ligia Choi APRN, WOOL CLEANER [address] [address] Well adult exam; Iron deficiency; B12 deficiency; Vitamin D deficiency Discharge Disposition: Discharged to home or Selfcare Social History Tobacco Use Types Packs/Day Years Used Date Smoking Tobacco: Light Smoker Cigarettes Smokeless Tobacco: Never Comments:1-2 cigarettes a da y Alcohol Use Standard Drinks/Week Comments Yes 0 (1 standard drink = 0.6 oz pur e alcohol) Rare PHQ-2 Answer Date Recorded Total Score - Questions 1-9 10 06/12 Education Answer Date Recorded What is the highest level of school you have completed or the highest degree you have received? 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 * Ligia Choi APRN, CNP - 06/24/2023 9:25 AM CDT Please notify patient of [employer] message. Iron is low, needs to take iron supplement daily. documented in this encounter Plan of Treatment Upcoming Encounters Date Type Department Care Team (Late st Contact Info) Description 04/28/2024 10:00 AM CHIPPER MACHINE OPERATOR [facility]ment [facility] Stress [address] [place] [address] Karen Andino APRN, WOOL CLEANER [address] [place] [address] Discharge Disposition: Discharged to home or Selfcare 06/02/2024 10:00 AM CHIPPER MACHINE OPERATOR Office [facility] [address] [place] [address] Kelin Castle, SARABJIT [address] [place] [address] documented as of this encounter Procedures Procedure Name Priority Date/Time Associated Diagnosis Comments VITAMIN D, 25 HYDROXY TOTAL Routine 06/24/2023 9:33 AM CDT Vitamin D deficiency IRON,TRANSFERN,CALC.T IBC,%SAT Routine 06/24/2023 9:33 AM CDT Well adult exam Iron deficiency B12 deficiency Vitamin D deficiency CBC WITH AUTO DIFFERENTIAL Routine 06/24/2023 9:33 AM CDT Well adult exam Iron deficiency VITAMIN B12 Routine 06/24/2023 9:33 AM CDT B12 deficiency THYROID STIMULATING HORMONE (TSH) Routine 06/24/2023 9:33 AM CDT Well adult exam LIPID PANEL Routine 06/24/2023 9:33 AM CDT Well adult exam CMP (COMPREHENSIVE METABOLIC PANEL) Routine 06/24/2023 9:33 AM CDT Well adult exam COMPLETE BLOOD COUNT (CBC) WITH DIFF Routine 06/24/2023 9:33 AM CDT Well adult exam Iron deficiency documented in this encounter Results * (ABNORMAL) CBC WITH AUTO DIFFERENTIAL (06/24/2023 9:33 AM CDT) [facility] WBC 12.58(H) 4.00 - 12.00 10(3)/mcL 06/24/2023 10:46 AM CDT [facility] RBC 4.43 3.80 - 5.30 10(6)/mcL 06/24/2023 10:46 AM CDT [facility] HEMOGLOBIN (HGB) 12.1 12.0 - 15.8 g/dL 06/24/2023 10:46 AM CDT [facility] HEMATOCRIT (HCT) 36.4 36.0 - 47.0 % 06/24/2023 10:46 AM CDT [facility] MCV 82.2 82.0 - 96.0 fL 06/24/2023 10:46 AM CDT [facility] MCH 27.3 26.0 - 34.0 pg 06/24/2023 10:46 AM CDT [facility] MCHC 33.2 31.0 - 36.0 g/dL 06/24/2023 10:46 AM CDT [facility] PLATELET COUNT 395 140 - 440 10(3)/[facility] 06/24/2023 10:46 AM CDT [facility] RDW 12.9 11.8 - 15.5 % 06/24/2023 10:46 AM CDT [facility] MPV 9.9 9.7 - 12.4 fL 06/24/2023 10:46 AM CDT [facility] NEUTROPHILS 77.6(H) 47.0 - 73.0 % 06/24/2023 10:46 AM CDT [facility] LYMPHOCYTES 16.7(L) 18.0 - 42.0 % 06/24/2023 10:46 AM CDT [facility] MONOCYTES 4.2 4.0 - 12.0 % 06/24/2023 10:46 [facility] EOSINOP[facility] 1.2 0.0 - 5.0 % 06/24/2023 10:46 AM CDT [facility] BASOPHILS 0.3 0.0 - 1.0 % 06/24/2023 10:46 AM CDT [facility] ABSOLUTE NEUTROPHILS 9.76(H) 1.60 - 7.70 10(3)/[facility] 06/24/2023 10:46 [facility] ABSOLUTE LYMPHOCYTES 2.10 1.30 - 3.20 10(3)/[facility] 06/24/2023 10:46 AM CDT [facility] ABSOLUTE MONOCYTES 0.53 0.20 - 1.00 10(3)/[facility] 06/24/2023 10:46 AM CDT [facility] ABSOLUTE EOSINOPHIL 0.15 0.00 - 0.40 10(3)/[facility] 06/24/2023 10:46 AM T [facility] ABSOLUTE BASOPHILS 0.04 0.00 - 0.10 10(3)/[facility] 06/24/2023 10:46 AM [facility] NRBC PER 100 WBC 0 06/24/19 10:46 AM [facility] Blood Venipuncture / Unknown 06/24/2023 9:33 AM CDT 06/24/2023 10:38 AM CDT Ligia Choi APRN, CNP HEMATOLOGY ORDERABLE S Final Result [facility] [address] [place] [address] * (ABNORMAL) IRON,TRANSFERN,CALC.TIBC,%SAT (06/24/2023 9:33 AM CDT) IRON 29 25 - 156 mcg/dL 06/24/2023 11:11 AM CDT [facility] TRANSFERRIN 307 180 - 382 mg/dL 06/24/2023 11:11 AM CDT [facility] TIBC, CALCULATED 384 265 - 497 mcg/dL 06/24/2023 11:11 AM CDT [facility] % SATURATION * 8(L) 15 - 62 % 06/24/2023 11:11 AM CDT [facility] Blood Venipuncture / Unknown 06/24/2023 9:33 AM CDT 06/24/2023 10:37 AM CDT us Ligia Choi APRN, CNP CHEMISTRY ORDERABLES Final Result Performing Organization Address City/[facility]/ZIP Co de Phone Number [facility] [address] [place] [address] * VITAMIN D, 25 HYDROXY TOTAL (06/24/2023 9:33 AM CDT) VITAMIN D, 25 HYDROX 33 ng/mL 06/24/2023 11:30 AM CDT [facility] Blood Venipuncture / Unknown 06/24/2023 9:33 AM CDT 06/24/2023 10:39 AM CDT Narrative [facility] - 06/24/2023 11:30 AM CDT Published reference ranges for Vitamin D vary depending on time and place and method of testing, and on patient's age, sex, ethnicity and levels of other measured analytes such as parathormone, calcium and phosphorus. ??The result should be evaluated in conjunction with clinical findings and suspicions. [place] [employer] and Endocrine Clinical Practice Guidelines: Status Vitamin D levels (ng/mL) Deficient <=20 At risk of inadequacy 21-29 Sufficient 30-100 Centers of Disease Control and Prevention Guidelines: Status Vitamin D levels (ng/mL) Deficient <13 At risk of inadequacy 13-19 Sufficient 20-50 Possibly harmful >50 References: [place] [employer], 2010 Dietary reference intakes for calcium and vitamin D. [place]: ??The National Academies Press. Mami M, Sonam N, Corbin MORENO, et al., Evaluation, treatment, and prevention of Vitamin D deficiency: an Endocrinology Clinical Practice Guideline. JCEM 2011 96: 7 4161-8299. Ha A, Leonardo C, Dayanara D, et al., Vitamin D Status: ??[place], 6, [facility] data brief, no. 59, MD Danielle: ??National Center for Health Statistics. 2011. Ligia Choi APRN, WOOL CLEANER CHEMISTRY ORDERABLES Final Result [facility] [address] [place] [address] * (ABNORMAL) VITAMIN B12 (06/24/2023 9:33 AM CDT) VITAMIN B12 821(H) 213 - 816 pg/mL 06/24/2023 11:36 AM CDT [facility] Blood Venipuncture / Unknown 06/24/2023 9:33 AM CDT 06/24/2023 10:38 AM CDT Ligia Choi STEAM TUNNEL FEEDER, WOOL CLEANER CHEMISTRY ORDERABLES Final Result Performing Organization Address City/[facility]/ZIP Co de Phone Number [facility] [address] [place] [address] * THYROID STIMULATING HORMONE (TSH) (06/24/2023 9:33 AM CDT) TSH 1.269 0.300 - 5.000 mIU/L 06/24/2023 11:32 AM CDT [facility] Blood Venipuncture / Unknown 06/24/2023 9:33 AM CDT 06/24/2023 10:37 AM CDT us Ligia Choi STEAM TUNNEL FEEDER, SUZY CHEMISTRY ORDERABLES Final Result [facility] [address] [place] [address] * (ABNORMAL) LIPID PANEL (06/24/2023 9:33 AM CDT) CHOLESTEROL 200(H) <200 mg/dL 06/24/2023 11:11 AM CDT [facility] TRIGLYCERIDES 244(H) <150 mg/dL 06/24/2023 11:11 AM CDT [facility] HDL CHOLESTEROL 53 >40 mg/dL 11:11 AM CDT [facility] LDL 98 <130 mg/dL 06/24/2023 11:11 AM CDT [facility] VLDL 49 10 - 50 mg/dL 06/24/2023 11:11 AM CDT [facility] CHOL/HDL RATIO 3.8 0.0 - 4.4 06/24/2023 11:11 AM CDT [facility] NON-HDL CHOLESTEROL 147(H) <130 mg/dL 06/24/2023 11:11 AM CDT [facility] IS THE PATIENT REQUIRED TO BE FASTING? Yes 06/24/2023 11:11 AM CDT [facility] HAS THE PATIENT BEEN FASTING? Yes 06/24/2023 11:11 AM CDT [facility] Blood Venipuncture / Unknown 06/24/2023 9:33 AM CDT 06/24/2023 10:37 AM CDT us Lgiia Choi APRN, CNP CHEMISTRY ORDERABLES Final Result [facility] [address] [place] [address] * (ABNORMAL) CMP (COMPREHENSIVE METABOLIC PANEL) (06/24/2023 9:33 AM CDT) SODIUM 139 136 - 145 mmol/L 06/24/2023 11:11 AM CDT [facility] POTASSIUM 3.7 3.5 - 5.1 mmol/L 06/24/2023 11:11 AM CDT [facility] CHLORIDE 108(H) 98 - 107 mmol/L 06/24/2023 11:11 AM CDT [facility] CO2, VENOUS 21(L) 22 - 30 mmol/L 06/24/2023 11:11 AM CDT [facility] ANION GAP 13.7 <18.0 mmol/L 06/24/2023 11:11 AM CDT [facility] GLUCOSE 94 70 - 99 mg/dL 06/24/2023 11:11 AM CDT [facility] BUN 6 5 - 18 mg/dL 06/24/2023 11:11 AM CDT [facility] CREATININE, BLOOD 0.69 0.60 - 1.00 mg/dL 06/24/2023 11:11 AM CDT [facility] BUN/CREATININE RATIO 9(L) 12 - 20 ratio 06/24/2023 11:11 AM CDT [facility] TOTAL PROTEIN 7.0 6.3 - 8.2 g/dL 06/24/2023 11:11 AM CDT [facility] ALBUMIN 3.9 3.5 - 5.0 g/dL 06/24/2023 11:11 AM CDT [facility] A/G RATIO 1.3 1.0 - 2.2 06/24/2023 11:11 AM CDT [facility] CALCIUM 9.1 8.7 - 10.5 mg/dL 06/24/2023 11:11 AM CDT [facility] T BILI 0.4 0.2 - 1.2 mg/dL 06/24/2023 11:11 AM CDT [facility] SGOT (AST) 18 5 - 34 U/L 06/24/2023 11:11 AM CDT [facility] SGPT (ALT) 15 0 - 55 U/L 06/24/2023 11:11 AM CDT [facility] ALKALINE PHOSPHATASE 94 40 - 150 U/L 06/24/2023 11:11 AM CDT [facility] IS THE PATIENT REQUIRED TO BE FASTING? No 06/24/2023 11:11 AM CDT [facility] GFR, ESTIMATED >60 >=60 06/24/2023 11:11 AM CDT [facility] Comment: Creatinine Clearance is the preferred criteria for selecting drug dose adjustments in renally impaired patients. ??The GFR is provided as additional pertinent clinical information. GFR is reported in mL/min/1.73 sq m. Calculation based on the Chronic Kidney Disease Epidemiology Collaboration (CKD- EPI) equation refit without adjustment for race. GFR, EST. >60 >=60 024 11:11 AM CDT [facility] GFR, EST. NONAFRICAN >60 >=60 06/24/2023 11:11 AM CDT [facility] Blood Venipuncture / Unknown 06/24/2023 9:33 AM CDT 06/24/2023 10:37 AM CDT us Ligia Choi APRN, CNP CHEMISTRY ORDERABLES Final Result [facility] [address] [place] [address] documented in this encounter Visit Diagnoses Diagnosis Well adult exam Routine general medical examination at a health care facility Iron deficiency Other disorders of iron metabolism B12 deficiency Other B-complex deficiencies Vitamin D deficiency Unspecified vitamin D deficiency documented in this encounter Additional Health Concerns Assessment Noted Time PHQ-9 Depression Total Score: 10 024 3:18 PM CDT documented as of this encounter Care Teams Specimen Collector Relationship Specialty Start Date End Date Kj Merlos MD [address] [address] PCP - General Family Medicine 04/09/21 documented as of this encounter
--- OUTSIDE RECORDS SUMMARY | 2024-04-17 13:51 | XMS_ITS | Encounter Summary ---
Author Organization [employer] Care Team Providers Care Aluminum Can Collector Name Role Phone Kj Merlos MD Primary Care Provider [phone] Encounter Details Date Type Department Care Team (Latest Contact Info) Description 01/15/2024 Travel Social History Tobacco Use Types Packs/Day Years Used Date Smoking Tobacco: Light Smoker Cigarettes Smokeless Tobacco: Never Comments:1-2 cigarettes a da y Alcohol Use Standard Drinks/Week Comments Yes 0 (1 standard drink = 0.6 oz pur e alcohol) Rare [facility] Utilities Answer Date Recorded In the past 12 months has th [employer] electric, gas, oil, or water company threatened [...] How often do you attend chur or mormon services? Patient declined 01/15/2024 Do you belong to any clubs o r organizations such as worship groups, unions, fraternal or athletic groups, or [...] Total Score - Questions 1-9 8 06/2023 [facility] - Occupational [...] place to sleep or slept in a mcc (including now)? 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 Answer Date of Assessment Author No 01/15/2024 3:52 PM CDT [facility] * Within the last year, have you been afraid of your partner or ex-partner? Answer Date of Assessment Author No 01/15/2024 3:52 PM CDT [facility] * Within the last year, have you been raped or forced to have any kind of sexual activity by your partner or ex-partner? Answer Date of Assessment Author No 01/15/2024 3:52 PM CDT [facility] * Within the last year, have you been kicked, hit, slapped, or otherwise physically hurt by your partner or ex-partner? Answer Date of Assessment Author No 01/15/2024 3:52 PM CDT [facility] * Q1: How often do you have a drink containing alcohol? Answer Date of Assessment Author Monthly or less 01/15/2024 3:52 PM CDT [facility] * Q2: How many drinks containing alcohol do you have on a typical day when you are drinking? Answer Date of Assessment Author 1 or 2 01/15/2024 3:52 PM CDT [facility] * Q3: How often do you have six or more drinks on one occasion? Answer Date of Assessment Author Never 01/15/2024 3:52 PM CDT [facility] * Question Answer Date of Assessment Author Little interest or pleasure in doing things Not at all 01/15/2024 4:34 PM CDT Shannan Jimenez MA Feeling down, depressed, or hopeless Not at all 01/15/2024 4:34 PM CDT Shannan Jimenez MA * Over the past 2 weeks, how often have you been bothered by any of the following problems? Question Answer Date of Assessment Author Patient Health Questionnaire -2 Score 0 01/15/2024 4:34 PM CDT Shannan Jimenez MA documented as of this encounter Plan of Treatment Upcoming Encounters Date Type Department Care Team (Late st Contact Info) Description 04/28/2024 10:00 AM ELEMENTARY ESL TEACHER [facility] [address] [place] [address] Karen Andino APRN, [employer] [address] [place] [address] Discharge Disposition: Discharged to home or Selfcare 06/02/2024 10:00 AM ELEMENTARY ESL TEACHER [facility] [address] [place] [address] Kelin Castle PAC [address] [place] [address] documented as of this encounter Visit Diagnoses Not on filedocumented in this encounter Additional Health Concerns Assessment Noted Time PHQ-9 Depression Total Score: 8 01/15/20 24 4:34 PM CDT documented as of this encounter Care Teams Aluminum Can Collector Relationship Specialty Start Date End Date Kj Merlos MD [address] [address] PCP - General Family Medicine 04/09/21 documented as of this encounter
--- OUTSIDE RECORDS SUMMARY | 2024-04-17 13:51 | XMS_ITS | Encounter Summary ---
Author Organization [facility] Address [address] [place] [address] Phone Care Team Providers Care Sign Language Translator Name Role Phone Kj Merlos MD Primary Care Provider [phone] Reason for Visit * Reason Comments Rash She is following up on the poison elpidio rash that is gone now and she said the cream really helped. Medication Management Pt is following up on her increase in effexor. Encounter Details Date Type Department Care Team (Late st Contact Info) Description 09/15/2023 4:00 PM CDT Office Visit [facility] - [facility] [address] [place] [id number] Ligia Choi APRN, [facility] [address] [address] Anxiety (Primary Dx); Heel spur, right Discharge Disposition: Discharged to home or Selfcare Social History Tobacco Use Types Packs/Day Years Used Date Smoking Tobacco: Light Smoker Cigarettes Smokeless Tobacco: Never Comments:1-2 cigarettes a da y Alcohol Use Standard Drinks/Week Comments Yes 0 (1 standard drink = 0.6 oz pur e alcohol) Rare [facility] Utilities Answer Date Recorded In the past 12 months has th e electric, gas, oil, or water company threatened to shut off services in your home? No 09/15/2023 Social Connection and Isolat ion Panel [NHANES] Answer Date Recorded In a typical week, how many times do you talk on the phone with family, friends, or neighbors? More than three times a week 09/15/2023 How often do you get togethe r with friends or relatives? More than three times a week 09/15/2023 How often do you attend chur ch or caodaism services? Never 09/15/2023 Do you belong to any clubs o r organizations such as caodaism groups, unions, fraternal or athletic groups, or school groups? No 09/15/2023 How often do you attend meet ings of the clubs or organizations you belong to? Never 09/15/2023 Are you , , di vorced, , never , or living with a partner? 09/15/2023 AUDIT-C Answer Date Recorded Q1: How often do you have a drink containing alc ohol? Monthly or less 09/15/2023 Q2: How many drinks containi ng alcohol do you have on a typical day when you are drinking? 1 or 2 09/15/2023 Q3: How often do you have si x or more drinks on one occasion? Never 09/15/2023 Overall Financial Resource Strain (CARDIA) Answe r Date Recorded How hard is it for you to pa y for the very basics like food, housing, medical care, and heating? Not very hard 09/15/2023 PHQ-2 Answer Date Recorded Total Score - Questions 1-9 10 06/12 [facility] - Occupational Stress Questionnaire Answer Date Recorded Do you feel stress - tense, restless, nervous, or anxious, or unable to sleep at night because your mind is troubled all the time - these days? Only a little 09/15/2023 Exercise Vital Sign Answer Date Recorde d On average, how many days pe r week do you engage in moderate to strenuous exercise (like a brisk walk)? 3 days Minutes of Exercise per Session Not on file 09/15/2023 Hunger Vital Sign Answer Date Recorded Within the past 12 months, y ou worried that your food would run out before you got the money to buy more. Never true 09/15/19 24 Within the past 12 months, t he food you bought just didn't last and you didn't have money to get more. Never true 09/15/2023 PRAPARE - Transportation Answer Date Re corded In the past 12 months, has l ack of transportation kept you from medical appointments or from getting medications? No 06/2023 In the past 12 months, has l ack of transportation kept you from meetings, work, or from getting things needed for daily living? No 09/15/2023 Housing Stability Vital Sign Answer [...] in a mcc (including now)? No 09/15/2023 Education Answer Date Recorded What is the highest level of school you have completed or the highest degree you have received? 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 file Not on file documented as of this encounter Last Filed Vital Signs Vital Sign Reading Time Taken Comments Blood Pressure 104/58 09/15/2023 4:09 PM CDT Pulse 69 09/15/2023 4:09 PM CDT Temperature 36.6 ??C (97.8 ??F) 09/15/2023 4:09 PM CD T Respiratory Rate 16 09/15/2023 4:09 PM CDT Oxygen Saturation 98% 09/15/2023 4:09 PM CDT Inhaled Oxygen Concentration - - Weight 89.8 kg (198 lb) 09/15/2023 4:09 PM CDT Height 154.9 cm (5' 1 ) 09/15/2023 4:09 PM CDT Body Mass Index 37.41 09/15/2023 4:09 PM CDT documented in this encounter Functional Status * Audit-C Score Answer Date of Assessment Author 1 09/15/2023 4:05 PM CDT [facility] * Within the last year, have you been humiliated or emotionally abused in other ways by your partner or ex-partner? Answer Date of Assessment Author No 09/15/2023 4:05 PM CDT [facility] * Within the last year, have you been afraid of your partner or ex-partner? Answer Date of Assessment Author No 09/15/2023 4:05 PM CDT [facility] * Within the last year, have you been raped or forced to have any kind of sexual activity by your partner or ex-partner? Answer Date of Assessment Author No 09/15/2023 4:05 PM CDT [facility] * Within the last year, have you been kicked, hit, slapped, or otherwise physically hurt by your partner or ex-partner? Answer Date of Assessment Author No 09/15/2023 4:05 PM CDT [facility] * Q1: How often do you have a drink containing alcohol? Answer Date of Assessment Author Monthly or less 09/15/2023 4:05 PM CDT [facility] * Q2: How many drinks containing alcohol do you have on a typical day when you are drinking? Answer Date of Assessment Author 1 or 2 09/15/2023 4:05 PM CDT [facility] * Q3: How often do you have six or more drinks on one occasion? Answer Date of Assessment Author Never 09/15/2023 4:05 PM CDT [facility] * Question Answer Date of Assessment Author Little interest or pleasure in doing things Not at all 09/15/2023 4:14 PM CDT Shannan Jimenez MA Feeling down, depressed, or hopeless Not at all 09/15/2023 4:14 PM CDT Shannan Jimenez MA * Over the past 2 weeks, how often have you been bothered by any of the following problems? Question Answer Date of Assessment Author Patient Health Questionnaire -2 Score 0 09/15/2023 4:14 PM CDT Shannan Jimenez MA documented as of this encounter Progress Notes * Shannan Jimenez MA - 09/15/2023 4:00 PM CDT Eshter Day, 32 y.o., female is here for Rash (She is following up on the poison elpidio rash thatis gone now and she said the cream really helped.) and Medication Management (Pt is following up onher increase in effexor.) Medication Refills: Patient reports/denies need for medication refills. Orders Pended: no Requested Prescriptions No prescriptions requested or ordered in this encounter Home Medications Medication Sig Start Date End Date Taking? Authorizing Provider betamethasone dipropionate, augmented, (DIPROLENE-AF) 0.05 % Cream APPLY A THIN LAYER TOPICALLY TO LEFT LOWER LEG TWICE DAILY NEEDED FOR ITCHING FOR 3 WEEKS Patient not taking: Reported on 09/15/2023 08/23/23 ProviderSunita MD triamcinolone (KENALOG) 0.1 % Cream APPLY CREAM EXTERNALLY TWICE DAILY TO RASH 08/04/23 Yes Ligia Choi APRN, CNP triamcinolone (KENALOG) 0.1 % Cream Application Site: rash BID (Description and Location) Patient not taking: Reported on 09/15/2023 09/11/23 Ligia Choi APRN, CNP venlafaxine (EFFEXOR-XR) 75 MG CAPSULE SR 24 HR Take 1 Capsule by mouth daily. 08/04/23 Yes Ligia Choi APRN, CNP Zafemy 150-35 MCG/24HR PATCH WEEKLY APPLY 1 TOPICALLY ONCE A WEEK FOR 21 DAYS Yes Provider, MD Sunita There are no discontinued medications. I have reviewed the home medication list with the patient and have reconciled discrepancies. The list is accurate to the best of my knowledge. Smoking Status: Social History Tobacco Use Smoking status: Light Smoker Years: 15 Types: Cigarettes Smokeless tobacco: Never Tobacco comments: 1-2 cigarettes a day Vaping Use Vaping Use: Never used Substance Use Topics Alcohol use: Yes Comment: [...] have been addressed with the patient today: Depression none * Ligia Choi APRN, SUZY - 09/15/2023 4:00 PM CDT [facility] [address] [facility] [address] Dept: [phone] Dept Loc: [phone] Loc Patient: Esther Day : 1990 Sex: female Subjective Subjective: HPI: Esther Day presents for Rash (She is following up on the poison elpidio rash that is gone now and she said the cream really helped.) and Medication Management (Pt is following up on her increase in effexor.) . Depression/Anxiety Esther Day is a 32 y.o. femalewho presents for follow-up of anxiety and heel spur. She is accompanied by no one. She complains of insomnia. Other symptoms include palpitations, sweating, chest pain, shortness of breath, insomnia, racing thoughts, feelings of losing control. Since the last visit, the symptoms are improving. She denies current and past suicidal and homicidal intent and plan. Current treatment includes antidepressants (Effexor). She complains of the following treatment side effects: none. She started wearing inserts and that has helped with the heel spur. Past Medical History Positives Diagnosis Date Abscess of face Multiple -face and leg Acid reflux Allergic rhinitis Anxiety Chronic back pain GERD (gastroesophageal reflux disease) Headache History of seizure IBS (irritable bowel syndrome) Migraines Current Outpatient Medications on File Prior to Visit Medication Sig Dispense Refill triamcinolone (KENALOG) 0.1 % Cream APPLY CREAM EXTERNALLY TWICE DAILY TO RASH 80 g 1 Zafemy 150-35 MCG/24HR PATCH WEEKLY APPLY 1 TOPICALLY ONCE A WEEK FOR 21 DAYS No current facility-administered medications on file prior to visit. Allergies Allergen Reactions Augmentin [Amoxicillin-Pot Clavulanate] Rash and Itching Ceclor [Cefaclor] Hives and Rash Codeine Hives and Itching Review of Systems Constitutional: Negative for activity change, appetite change, chills, fatigue and fever. Respiratory: Negative for cough, chest tightness, shortness of breath and wheezing. Cardiovascular: Negative for chest pain, palpitations and leg swelling. Gastrointestinal: Negative for constipation, diarrhea, nausea and vomiting. Musculoskeletal: Positive for gait problem (if not wearing inserts.). Neurological: Negative for dizziness, light-headedness and headaches. Psychiatric/Behavioral: Positive for sleep disturbance. Negative for agitation, behavioral problems, confusion, decreased concentration, dysphoric mood, hallucinations, self-injury and suicidal ideas. The patient is nervous/anxious. The patient is not hyperactive. Objective Objective: BP 104/58 (BP Location: Left Arm, BP Position: Sitting) Pulse 69 Temp 97.8 ??F (36.6 ??C) (Temporal) Resp 16 Ht 5' 1 (1.549 m) Wt 198 lb (89.8 kg) LMP 09/06/2023 (Approximate) SpO2 98% BMI 37.41 kg/m?? Physical Exam Vitals and nursing note reviewed. Constitutional: General: She is not in acute distress. Appearance: Normal appearance. She is well-developed. She is obese. She is not diaphoretic. HENT: Head: Normocephalic and atraumatic. Right Ear: External ear normal. Left Ear: External ear normal. Eyes: Pupils: Pupils are equal, round, and reactive to light. Neck: Vascular: No carotid bruit. Trachea: No tracheal deviation. Cardiovascular: Rate and Rhythm: Normal rate and regular rhythm. Pulses: Normal pulses. Heart sounds: Normal heart sounds. No murmur heard. No friction rub. No gallop. Pulmonary: Effort: Pulmonary effort is normal. No respiratory distress. Breath sounds: Normal breath sounds. No stridor. No wheezing, rhonchi or rales. Musculoskeletal: General: No tenderness. Normal range of motion. Cervical back: Normal range of motion. Skin: General: Skin is dry. Neurological: Mental Status: She is alert and oriented to person, place, and time. Mental status is at baseline. Psychiatric: Mood and Affect: Mood normal. Behavior: Behavior normal. Thought Content: Thought content normal. Judgment: Judgment normal. Medical Decision Making: Assessment & Plan Diagnoses and all orders for this visit: Anxiety - venlafaxine (EFFEXOR-XR) 75 MG CAPSULE SR 24 HR; Take 1 Capsule by mouth daily. Heel spur, right Other orders - Discontinue: betamethasone dipropionate, augmented, (DIPROLENE-AF) 0.05 % Cream; APPLY A THIN LAYER TOPICALLY TO LEFT LOWER LEG TWICE DAILY NEEDED FOR ITCHING FOR 3 WEEKS (Patient not taking: Reported on 09/15/2023) Patient is doing well on Effexor. Will continue at current dose. Refills sent to pharmacy. Patient reports her heel pain resolves on wearing inserts however she does not wear them she has pain. Instructed her to wear the inserts full-time. If symptoms worsen may consider sending to Podiatry. Verbalized understanding. Follow-up in 4 months Return in about 4 months (around 01/15/2024). documented in this encounter Plan of Treatment Upcoming Encounters Date Type Department Care Team (Late st Contact Info) Description 04/28/2024 10:00 AM CUSTOMER LIAISON Appointment [facility] [address] [place] [address] Karen Andion APRN, [facility] [address] [place] [address] Discharge Disposition: Discharged to home or Selfcare 06/02/2024 10:00 AM CUSTOMER LIAISON Office Visit [facility] - [facility] Medicine [facility] [address] [place] [address] Kelin Castle PAC [address] [place] [address] documented as of this encounter Visit Diagnoses Diagnosis Anxiety- Primary Anxiety state, unspecified Heel spur, right documented in this encounter Additional Health Concerns Assessment Noted Time PHQ-9 Depression Total Score: 10 06/22/ 024 3:18 PM CDT documented as of this encounter Care Teams Sign Language Translator Relationship Specialty Start Date End Date Kj Merlos MD [address] [address] PCP - General Family Medicine 04/09/21 documented as of this encounter
--- OUTSIDE RECORDS SUMMARY | 2024-04-17 13:51 | XMS_ITS | Encounter Summary ---
Author Organization [facility] Address [address] [place] [address] Phone Care Team Providers Care Order Expediter Name Role Phone Kj Merlos MD Primary Care Provider [phone] Reason for Referral * Consult, Test & Initiate Treatment (Less Than 4 Weeks) - Closed Specialty Diagnoses / Procedures Referred By Ariana knight Referred To Contact Diagnoses Localized macular rash Ligia Choi APRN, ORGAN TEACHER #[address] [address] Phone: tel: fax: [facility] [address] [address] Phone: tel: fax: Referral ID Status Reason Start Date Expiration Date Visits Re quested Visits Authorized [id number] Closed 06/23/2023 1 1 Scheduling Instructions Esther is being referred to Dermatology and [facility] or other specialist in patient's insurance network for macular patch to LLE for 7 months . See below for Esther's current medications, allergies and problem list. CURRENT MEDS: Current Outpatient Medications: triamcinolone (KENALOG) 0.1 % Cream, APPLY CREAM EXTERNALLY TWICE DAILY TO RASH, Disp: 80 g, Rfl: 0 Zafemy 150-35 MCG/24HR PATCH WEEKLY, APPLY 1 TOPICALLY ONCE A WEEK FOR 21 DAYS, Disp: , Rfl: No current facility-administered medications for this visit. ALLERGIES: -- Augmentin [Amoxicillin-Pot Clavulanate] -- Rash and Itching -- Ceclor [Cefaclor] -- Hives and Rash -- Codeine -- Hives and Itching PROBLEM LIST: Patient Active Problem List: Chronic bilateral low back pain with right-sided sciatica Irritable bowel syndrome with diarrhea BMI 37.0-37.9, adult Gastroesophageal reflux disease without esophagitis Lipoma of torso Carpal tunnel syndrome of right wrist Lipoma of skin and subcutaneous tissue S/P excision of lipoma Primary focal hyperhidrosis Morbid obesity (HCC) Anxiety and depression HLD (hyperlipidemia) Vitamin D deficiency Tobacco dependence syndrome Umbilical hernia without obstruction and without gangrene Reason for Visit * Reason Comments Preventive Care She is here today fo r her annual exam. 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 file Not on file documented as of this encounter Last Filed Vital Signs Vital Sign Reading Time Taken Comments Blood Pressure 122/74 06/23/2023 3:21 PM CDT Pulse 89 06/23/2023 3:21 PM CDT Temperature 36.7 ??C (98 ??F) 06/23/2023 3:21 PM CDT Respiratory Rate 14 06/23/2023 3:21 PM CDT Oxygen Saturation 98% 06/23/2023 3:21 PM CDT Inhaled Oxygen Concentration - - Weight 89.5 kg (197 lb 4.8 oz) 06/23/2023 3:21 P M CDT Height 154.9 cm (5' 1 ) 06/23/2023 3:21 PM CDT Body Mass Index 37.28 06/23/2023 3:21 PM CDT documented in this encounter Functional Status * Question Answer Date of Assessment Author Little interest or pleasure in doing things Not at all 06/23/2023 3:18 PM CDT Paige Duggan Feeling down, depressed, or hopeless Not at all 06/23/2023 3:18 PM CDT Paige Duggan * Over the past 2 weeks, how often have you been bothered by any of the following problems? Question Answer Date of Assessment Author Patient Health Questionnaire-2 Score 0 06/12 3:18 PM CDT Pagie Duggan * Over the last 2 weeks, how often have you been bothered by any of the following problems? Question Answer Date of Assessment Author Feeling nervous, anxious, or on edge 2 06/23/2023 3:00 PM CDT Debra Choi APRN, SUZY Not being able to stop or control worrying 0 06/23/2023 3:00 PM CDT Debra Choi APRN, CNP Worrying too much about different things 1 06/23/2023 3:00 PM CDT Debra Choi APRN, CNP Trouble relaxing 2 06/23/2023 3:00 PM CDT Ligia Nieves APRN, CNP Being so restless that it is hard to sit still 3 06/23/2023 3:00 PM CDT Debra Choi APRN, CNP Becoming easily annoyed or irritable 2 06/23/2023 3:00 PM CDT Debra Choi APRN, CNP Feeling afraid as if something awful might happen 0 06/23/2023 3:00 PM CDT Ligia Elizondo APRN, CNP NEIL-7 Total Score 10 06/23/2023 3:00 PM CDT Ligia Choi APRN, CNP documented as of this encounter Progress Notes * Paige Duggan - 06/23/2023 3:30 PM CDT Esther Day is a 32 y.o. female with current BMI: Body mass index is 37.28 kg/m??. Interventions discussed including: encourage daily physical activity and well- balanced diet. Esther Day is a 32 y.o. female with current BMI: Body mass index is 37.28 kg/m??. Interventions discussed including: encourage daily physical activity and well- balanced diet. * Paige Duggan - 06/23/2023 3:30 PM CDT Esther Day, 32 y.o., female is here for Preventive Care (She is here today for her annual exam.) Medication Refills: Patient reports/denies need for medication refills. Orders Pended: no Requested Prescriptions No prescriptions requested or ordered in this encounter Home Medications Medication Sig Start Date End Date Taking? Authorizing Provider triamcinolone (KENALOG) 0.1 % Cream APPLY CREAM EXTERNALLY TWICE DAILY TO RASH 03/06/23 Yes Skyler Myers MD Zafetheresa 150-35 MCG/24HR PATCH WEEKLY APPLY 1 TOPICALLY [...] Health Maintenance Due Topic Date Due Hepatitis B Immunization (1 of 3 - 3-dose series) Never done Hepatitis C Virus (HCV) Screening Never done SARS-COV-2 Immunization (1) Never done Cervical Cancer Screening (CCS) Never done Pneumococcal Immunization Combined (2 of 2 - PCV) 12/29/2021 Influenza Immunization (1) 12/13/2022 Orders Pended: no The following BPA's have been addressed with the patient today: Mammogram, Pap, Smoking, Depression, Fall Risk, Nutrition, Advanced Care Planning, and HCC * Ligia Choi APRN, SUZY - 06/23/2023 3:30 PM CDT [facility] [address] [facility] [address] Dept: [phone] Dept Loc: [phone] Loc Patient: Esther Day : 1990 Sex: female Subjective Subjective: HPI: Esther Day presents for Preventive Care (She is here today for her annual exam.) . Patient presents today for annual exam and discuss rash and medication. She has seen her BUSINESS REPORTER in thelast year. She has seen a dentist in the last six months. She has complaints of a rash to her LLE for 7 months. Reports it started after she had poision elipdio.She was treated with Triamcinolone which helped but it returned. It will get to a small area and then come back. Highly purutic, no discharge. She also wants to discuss medication for anxiety. She reports in the last two months she has noted a increase in panic attacks. She reports she will have chest pain, dyspnea, feeling overwhelmed, headaches, insomnia, racing thoughts, and difficulty concentration. Denies suicidal or homicidal ideation, intent or plans. She has had this issue in the past and was treated with effexor which was effective. She reports it was very expensive so she stopped it. Denies new stressors but states that she is stressed with her job, child, and the day to day. Past Medical History Positives Diagnosis Date Abscess of face Multiple -face and leg Acid reflux Allergic rhinitis Anxiety Chronic back pain GERD (gastroesophageal reflux disease) Headache History of seizure IBS (irritable bowel syndrome) Migraines Current Outpatient Medications on File Prior to Visit Medication Sig Dispense Refill Zafemy 150-35 MCG/24HR PATCH WEEKLY APPLY 1 TOPICALLY ONCE A WEEK FOR 21 DAYS No current facility-administered medications on file prior to visit. Allergies Allergen Reactions Augmentin [Amoxicillin-Pot Clavulanate] Rash and Itching Ceclor [Cefaclor] Hives and Rash Codeine Hives and Itching Past Surgical History: Procedure Laterality Date EXPLORATORY OF ABDOMEN 2001 Endo fundal plication LIPOMA RESECTION Left 07/04/2017 Procedure: EXCISION LIPOMA LEFT UPPER BACK; Surgeon: Gareth Em MD; Location: [facility]; Service: General CARPAL TUNNEL RELEASE Right 04/29/2018 Procedure: CARPAL TUNNEL RELEASE RIGHT; Surgeon: Trent Blanton MD; Location: [facility]; Service: Orthopaedic WRIST GANGLION EXCISION Right 04/29/2018 Procedure: GANGLION CYST EXCISION REMOVAL RIGHT WRIST; Surgeon: Trent Blanton MD; Location: [facility]; Service: Orthopaedic LIPOMA RESECTION Bilateral 02/18/2019 Procedure: EXCISION LIPOMAS LOWER BACK TIMES TWO; Surgeon: Escobar Goodman MD; Location: [facility]; Service: General LAPAROSCOPIC APPENDECTOMY N/A 02/21/2021 Procedure: LAPAROSCOPIC APPENDECTOMY; Surgeon: Rm Butler MD; Location: [facility]; Service: General UMBILICAL HERNIA REPAIR N/A 02/21/2021 Procedure: LAPAROSCOPIC UMBILICAL HERNIA REPAIR- NO MESH; Surgeon: Rm Butler MD; Location: [facility]; Service: General MYRINGOTOMY Bilateral TONSILLECTOMY Review of Systems Constitutional: Positive for fatigue. Negative for chills and fever. HENT: Negative for congestion, ear pain, facial swelling, hearing loss, sinus pressure and sore throat. Eyes: Negative for pain and redness. Respiratory: Negative for cough, chest tightness, shortness of breath and wheezing. Cardiovascular: Negative for chest pain and palpitations. Gastrointestinal: Negative for abdominal pain, blood in stool, constipation, diarrhea and nausea. Genitourinary: Negative for dysuria, flank pain and urgency. Musculoskeletal: Negative for arthralgias, gait problem and myalgias. Skin: Positive for rash. Negative for wound. Neurological: Negative for dizziness, syncope, weakness and headaches. Psychiatric/Behavioral: Positive for sleep disturbance. Negative for agitation, confusion, decreased concentration, dysphoric mood, hallucinations and self- injury. The patient is nervous/anxious. Thepatient is not hyperactive. Objective Objective: BP 122/74 (BP Location: Left Arm, BP Position: Sitting, BP Cuff Size: Regular) Pulse 89 Temp 98??F (36.7 ??C) (Temporal) Resp 14 Ht 5' 1 (1.549 m) Wt 197 lb 4.8 oz (89.5 kg) LMP 06/09/2023 (Exact Date) SpO2 98% No BMI 37.28 kg/m?? Physical Exam Vitals and nursing note reviewed. Constitutional: General: She is not in acute distress. Appearance: Normal appearance. She is well-developed. She is not diaphoretic. HENT: Head: Normocephalic [...] No stridor. No wheezing, rhonchi or rales. Abdominal: General: Bowel sounds are normal. There is no distension. Palpations: Abdomen is soft. Tenderness: There is no abdominal tenderness. There is no guarding or rebound. Musculoskeletal: General: No tenderness. Normal range of motion. Cervical back: Normal range of motion. Skin: General: Skin is warm and dry. Capillary Refill: Capillary refill takes less than 2 seconds. Findings: Rash (large patch to LLE) present. Rash is macular and scaling. Neurological: General: No focal deficit present. Mental Status: She is alert and oriented to person, place, and time. Mental status is at baseline. Psychiatric: Attention and Perception: Attention and perception normal. Mood and Affect: Affect normal. Mood is anxious. Speech: Speech normal. Behavior: Behavior normal. Behavior is cooperative. Thought Content: Thought content normal. Cognition and Memory: Cognition and memory normal. Judgment: Judgment normal. PHQ-2 Little interest or pleasure in doing things: Not at all Feeling down, depressed, or hopeless: Not at all Initial Score - If the score is 2 or higher, please proceed with the additional evaluation.: 0 PHQ-9 3. Trouble falling asleep or staying asleep or sleeping too much?: 3 - Nearly every day 4. Feeling tired or having little energy?: 3 - Nearly every day 5. Poor appetite or overeating?: 1 - Several days 6. Feeling bad about yourself or that you are a failure or have let yourself or your family down?: 0 - Not at all 7. Trouble concentrating on things, such as reading the newspaper or watching television?: 1 - Several days 8. Moving or speaking so slowly that other people could have noticed. Or the opposite - being so fidgety or restless that you have been moving around a lot more than usual?: 2 - More than half the days 9. Thoughts that you would be better off or of hurting yourself in some way?: 0 - Not at all 10. If you checked off any problems, how difficult have these problems made it for you to do your work, take care of things at home or get along with other people?: Not difficult at all Total Score - Questions 1-9: 10 NEIL 10 Medical Decision Making: Assessment & Plan Diagnoses and all orders for this visit: Localized macular rash - EXTERNAL DERMATOLOGY REFERRAL; Future Well adult exam - CMP (COMPREHENSIVE METABOLIC PANEL); Future - LIPID PANEL; Future - COMPLETE BLOOD COUNT (CBC) WITH DIFF; Future - THYROID STIMULATING HORMONE (TSH); Future Anxiety - venlafaxine (EFFEXOR-XR) 37.5 MG CAPSULE SR 24 HR; Take 1 Capsule by mouth daily. Iron deficiency - COMPLETE BLOOD COUNT (CBC) WITH DIFF; Future - IRON W/IRON BINDING CAPACITY; Future B12 deficiency - VITAMIN B12; Future Vitamin D deficiency - VITAMIN D, 25 HYDROXY TOTAL; Future Other orders - Zafemy 150-35 MCG/24HR PATCH WEEKLY; APPLY 1 TOPICALLY ONCE A WEEK FOR 21 DAYS - triamcinolone (KENALOG) 0.1 % Cream; APPLY CREAM EXTERNALLY TWICE DAILY TO RASH Anticipatory guidelines reviewed. Discussion with patient regarding anxiety. Will start her on Effexor. Referral placed for Dermatology. Patient follow-up in 6 weeks to see how she is doing. Return in about 6 weeks (around 08/04/2023). documented in this encounter Plan of Treatment Upcoming Encounters Date Type Department Care Team (Late st Contact Info) Description 04/28/2024 10:00 AM NITRO WORKER Appointment [facility] [address] [place] [address] Karne Andino APRN, ORGAN TEACHER [address] [place] [address] Discharge Disposition: Discharged to home or Selfcare 06/02/2024 10:00 AM NITRO WORKER [facility] [place] [address] Kelin Castle, SARABJIT [address] [place] [address] Scheduled Referrals Name Type Priority Associated Diagnoses Order Schedule EXTERNAL DERMATOLOGY REFERRAL Outpatient Referral Less Than 4 weeks Localized macular rash Expected: 06/23/2023, Expires: 06/22/2024 documented as of this encounter Results * VITAMIN D, 25 HYDROXY TOTAL (06/24/2023 9:33 AM CDT) VITAMIN D, 25 HYDROX 33 ng/mL 06/24/2023 11:30 AM CDT [facility] Blood Venipuncture / Unknown 06/24/2023 9:33 AM CDT 06/24/2023 10:39 AM CDT Narrative [facility] - 06/24/2023 11:30 AM CDT Published reference ranges for Vitamin D vary depending on time and place and method of testing, and on patient's age, sex, ethnicity and levels of other measured analytes such as parathormone, calcium and phosphorus. ??The result should be evaluated in conjunction with clinical findings and suspicions. [employer] of [employer] and Endocrine Clinical Practice Guidelines: Status Vitamin D levels (ng/mL) Deficient <=20 At risk of inadequacy 21-29 Sufficient 30-100 Centers of Disease Control and Prevention Guidelines: Status Vitamin D levels (ng/mL) Deficient <13 At risk of inadequacy 13-19 Sufficient 20-50 Possibly harmful >50 References: [employer] of Medicine, 2010 Dietary reference intakes for calcium and vitamin D. [place]: ??The National Academies Press. Mami M, Sonam N, Corbin MORENO, et al., Evaluation, treatment, and prevention of Vitamin D deficiency: an Endocrinology Clinical Practice Guideline. JCEM 2011 96: 7 4737-0861. Ha A, Leonardo C, Dayanara D, et al., Vitamin D Status: ??[place], 2000- 6, [facility] data brief, no. 59, MD Danielle: ??National Center for Health Statistics. 2010. Ligia Choi PEARL GLUE OPERATOR, ORGAN TEACHER CHEMISTRY ORDERABLES Final Result [facility] [address] [place] [address] * (ABNORMAL) VITAMIN B12 (06/24/2023 9:33 AM CDT) VITAMIN B12 821(H) 213 - 816 pg/mL 06/24/2023 11:36 AM CDT [facility] Blood Venipuncture / Unknown 06/24/2023 9:33 AM CDT 06/24/2023 10:38 AM CDT Ligia Choi APRN, ORGAN TEACHER CHEMISTRY ORDERABLES Final Result Performing Organization Address City/[facility]/ZIP Co de Phone Number [facility] [address] [place] [address] * THYROID STIMULATING HORMONE (TSH) (06/24/2023 9:33 AM CDT) TSH 1.269 0.300 - 5.000 mIU/L 06/24/2023 11:32 AM CDT [facility] Blood Venipuncture / Unknown 06/24/2023 9:33 AM CDT 06/24/2023 10:37 AM CDT Ligia Choi APRN, ORGAN TEACHER CHEMISTRY ORDERABLES Final Result Performing Organization Address [facility] Co de Phone Number [facility] [address] [place] [address] * (ABNORMAL) LIPID PANEL (06/24/2023 9:33 AM CDT) CHOLESTEROL 200(H) <200 mg/dL 06/24/2023 11:11 AM CDT [facility] TRIGLYCERIDES 244(H) <150 mg/dL 06/24/2023 11:11 AM CDT [facility] HDL CHOLESTEROL 53 >40 mg/dL 11:11 AM CDT [facility] LDL 98 <130 mg/dL 06/24/2023 11:11 AM CDT [facility] VLDL 49 10 - 50 mg/dL 06/24/2023 11:11 AM CDT [facility] CHOL/HDL RATIO 3.8 0.0 - 4.4 06/24/2023 11:11 AM CDT [facility] NON-HDL CHOLESTEROL 147(H) <130 mg/dL 06/24/2023 11:11 AM CDT [facility] IS THE PATIENT REQUIRED TO BE FASTING? Yes 06/24/2023 11:11 AM CDT [facility] HAS THE PATIENT BEEN FASTING? Yes 06/24/2023 11:11 AM CDT [facility] Blood Venipuncture / Unknown 06/24/2023 9:33 AM CDT 06/24/2023 10:37 AM CDT us Ligia Choi PEARL GLUE OPERATOR, SUZY CHEMISTRY ORDERABLES Final Result [facility] [address] [place] [address] * (ABNORMAL) CMP (COMPREHENSIVE METABOLIC PANEL) (06/24/2023 9:33 AM CDT) SODIUM 139 136 - 145 mmol/L 06/24/2023 11:11 AM CDT [facility] POTASSIUM 3.7 3.5 - 5.1 mmol/L 06/24/2023 11:11 AM CDT [facility] CHLORIDE 108(H) 98 - 107 mmol/L 06/24/2023 11:11 AM CDT [facility] CO2, VENOUS 21(L) 22 - 30 mmol/L 06/24/2023 11:11 AM CDT [facility] ANION GAP 13.7 <18.0 mmol/L 06/24/2023 11:11 AM CDT [facility] GLUCOSE 94 70 - 99 mg/dL 06/24/2023 11:11 AM CDT [facility] BUN 6 5 - 18 mg/dL 06/24/2023 11:11 AM T [facility] CREATININE, BLOOD 0.69 0.60 - 1.00 mg/dL 06/24/2023 11:11 AM T [facility] BUN/CREATININE RATIO 9(L) 12 - 20 ratio 06/24/2023 11:11 AM T [facility] TOTAL PROTEIN 7.0 6.3 - 8.2 g/dL 06/24/2023 11:11 AM CDT [facility] ALBUMIN 3.9 3.5 - 5.0 g/dL 06/24/2023 11:11 AM CDT [facility] A/G RATIO 1.3 1.0 - 2.2 06/24/2023 11:11 AM CDT [facility] CALCIUM 9.1 8.7 - 10.5 mg/dL 06/24/2023 11:11 AM CDT [facility] T BILI 0.4 0.2 - 1.2 mg/dL 06/24/2023 11:11 AM CDT [facility] SGOT (AST) 18 5 - 34 U/L 06/24/2023 11:11 AM CDT [facility] SGPT (ALT) 15 0 - 55 U/L 06/24/2023 11:11 AM CDT [facility] ALKALINE PHOSPHATASE 94 40 - 150 U/L 06/24/2023 11:11 AM T [facility] IS THE PATIENT REQUIRED TO BE FASTING? No 06/24/2023 11:11 AM CDT [facility] GFR, ESTIMATED >60 >=60 06/24/2023 11:11 AM CDT [facility] Comment: Creatinine Clearance is the preferred criteria for selecting drug dose adjustments in renally impaired patients. ??The GFR is provided as additional pertinent clinical information. GFR is reported in mL/min/1.73 sq m. Calculation based on the Chronic Kidney Disease Epidemiology Collaboration (CKD- EPI) equation refit without adjustment for race. GFR, EST. >60 >=60 024 11:11 AM CDT [facility] GFR, EST. NONAFRICAN >60 >=60 06/24/2023 11:11 AM CDT [facility] Blood Venipuncture / Unknown 06/24/2023 9:33 AM CDT 06/24/2023 10:37 AM CDT us Ligia Choi PEARL GLUE OPERATOR, ORGAN TEACHER CHEMISTRY ORDERABLES Final Result [facility] [address] [place] [address] documented in this encounter Visit Diagnoses Diagnosis Localized macular rash- Primary Rash and other nonspecific skin eruption Well adult exam Routine general medical examination at a health care facility Anxiety Anxiety state, unspecified Iron deficiency Other disorders of iron metabolism B12 deficiency Other B-complex deficiencies Vitamin D deficiency Unspecified vitamin D deficiency documented in this encounter Additional Health Concerns Assessment Noted Time PHQ-9 Depression Total Score: 10 024 3:18 PM CDT documented as of this encounter Care Teams Order Expediter Relationship Specialty Start Date End Date Kj Merlos MD [address] [address] [address] PCP - General Family Medicine 04/09/21 documented as of this encounter
--- OUTSIDE RECORDS SUMMARY | 2024-04-17 13:51 | XMS_ITS | Encounter Summary ---
Author Organization [facility] Address [address] [place] [address] Phone Care Team Providers Care Front Clerk Name Role Phone Kj Merlos MD Primary Care Provider [phone] Tatiana Logan APRN, TYPING TEACHER Unavailable Reason for Visit * Radiology Services (Routine) - Closed Specialty Diagnoses / Procedures Referred By Contac t Referred To Contact Radiology Diagnoses Syncope, unspecified syncope type Procedures ADULT TRANS THORACIC ECHO 2D COMPLT W CONT ADULT TRANS THORACIC ECHO 2D LMTD OR FU Kelin Castle, PAC [address] [place] [address] Phone: tel: fax: Referral ID Status Reason Start Date Expiration Date Visits Re quested Visits Authorized [id number] Closed 01/15/2024 1 1 Encounter Details Date Type Department Care Team (Latest Contact Info) Description 01/30/2024 3:22 PM CDT - 01/30/2024 11:59 PM CDT Hospital Encounter [facility] Cardiology Services [address] [place] [id number] Kelin Castle, PAC [address] [place] [address] Discharge Disposition: Discharged to home or Selfcare Social History Tobacco Use Types Packs/Day Years Used Date Smoking Tobacco: Light Smoker Cigarettes Smokeless Tobacco: Never Comments:1-2 cigarettes a da y Alcohol Use Standard Drinks/Week Comments Yes 0 (1 standard drink = 0.6 oz pur e alcohol) Rare [facility] Utilities Answer Date Recorded In the [...] often do you attend chur ch or voodoo services? Patient declined 01/15/2024 Do you belong to any clubs o r organizations such as sikhism groups, unions, fraternal or athletic groups, or [...] Total Score - Questions 1-9 8 06/2023 [facility] Occup[facility] - Occupational Stress [...] place to sleep or slept in a chcf (including now)? 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 file Not on file documented as of this encounter Last Filed Vital Signs Vital Sign Reading Time Taken Comments Blood Pressure - - Pulse - - Temperature - - Respiratory Rate - - Oxygen Saturation - - Inhaled Oxygen Concentration - - Weight 90.3 kg (199 lb) 01/30/2024 4:28 PM CDT Height 154.9 cm (5' 1 ) 01/30/2024 4:28 PM CDT Body Mass Index 37.6 01/30/2024 4:28 PM CDT documented in this encounter Medications at Time of Discharge [...] st Contact Info) Description 04/28/2024 10:00 AM MECHANICAL ENGINEER Appointment [facility] Cardiology Stress [address] [place] [phone] Karen Andino, RYAN, TYPING TEACHER [address] [place] [address] Discharge Disposition: Discharged to home or Selfcare 06/02/2024 10:00 AM MECHANICAL ENGINEER Office [facility] [address] [place] [phone] Kelin Castle, PAC [address] [place] [address] documented as of this encounter Procedures Procedure Name Priority Date/Time Associated Diagnosis Comments ADULT TRANS THORACIC ECHO 2D COMPLT W CONT Routine 01/30/2024 4:55 PM CDT Syncope, unspecified syncope type documented in this encounter Results * ADULT TRANS THORACIC ECHO 2D COMPLT [...] GAMEZ N ? 1990 Patient ID (UPI) ?[id number] ? Indications: Syncope. Study Date01/30/2024 Technical quality: [...] ?BMI (BSA) ?37.81 kg/m^2 (1.89 ? m^2) Consumer Affairs Specialist ?Cecilio Silver Interpreting ? Lin ? Referring Physician ?Pililpkumar ?Physician ?Von ?Charles Procedure Note Charles Longoria MD - 01/30/2024 Transthoracic Echocardiography Report (TTE) Patient name SHAY GAMEZ Estefania Cabrera 1990 Patient ID (UPI) [id number] Indications: Syncope. Study Date01/30/2024 Technical quality: Adequate [...] lbs. BMI (BSA) 37.81 kg/m^2 (1.89 m^2) Consumer Affairs Specialist Cecilio Lin Referring Physician Yusuf Physician [place] us Kelin Castle PAC IMG ECHO ORDERABLES Darlene l Result documented in this encounter Visit Diagnoses Diagnosis Syncope, unspecified syncope type documented in this encounter Administered Medications Inactive Administered Medications - up to 3 most recent administrations Medication Order MAR Action Action Date Dose Rate Site sulfur hexafluoride microsphere (LUMASON) 25 mg in 0.9% sodium chloride (diluent for Lumason) 5 mL total volume syringe 2-4 mL, Intravenous, ONCE, 1 dose, On Fri01/30/24 at 1700, Only to be administered by a certified sap plant maintenance consultant. Dosing: Adult: Cardiovascular imaging: IV: 2 mL during echocardiography; may repeat once during procedure to prolong contrast enhancement. Note: Adjust the mechanical index for the ultrasound device to 0.8 or lower after baseline non-contrast echocardiography is complete. Continue imaging following injection. Given 01/30/2024 4:50 PM CDT 4 mL documented in this encounter Additional Health Concerns Assessment Noted Time PHQ-9 Depression Total Score: 8 01/15/20 24 4:34 PM CDT documented as of this encounter Care Teams Front Clerk Relationship Specialty Start Date End Date Kj Merlos MD [address] [address] [address] PCP - General Family Medicine 04/09/21 Tatiana Logan APRN, TYPING TEACHER [address] [place] [address] Nurse Practitioner Advanced Practice Nurse 01/29/24 documented as of this encounter
--- OUTSIDE RECORDS SUMMARY | 2024-04-17 13:51 | XMS_ITS | Encounter Summary ---
Author Organization [facility] Address [address] [place] [address] Phone Care Team Providers Care Slip Feeder Name Role Phone Kj Merlos MD Primary Care Provider [phone] Reason for Referral * Radiology Services (Routine) - Closed Specialty Diagnoses / Procedures Referred By Ariana knight Referred To Contact Radiology Diagnoses Pain of right heel Procedures XR CALCANEUS RIGHT Ligia Choi APRN, VACUUM CLEANER ASSEMBLER #[address] [address] Phone: tel: fax: Referral ID Status Reason Start Date Expiration Date Visits Re quested Visits Authorized [id number] Closed 08/04/2023 1 1 Reason for Visit * Radiology Services (Routine) - Closed Specialty Diagnoses / Procedures Referred By Ariana knight Referred To Contact Radiology Diagnoses Pain of right heel Procedures XR CALCANEUS RIGHT Ligia Choi APRN, VACUUM CLEANER ASSEMBLER #[address] [address] Phone: tel: fax: Referral ID Status Reason Start Date Expiration Date Visits Re quested Visits Authorized [id number] Closed 08/04/2023 1 1 Encounter Details Date Type Department Care Team (Latest Contact Info) Description 08/04/2023 4:45 PM CDT - 08/04/2023 11:59 PM CDT Hospital Encounter [facility] Diagnostic Radiology [address] [place] [address] Ligia Choi APRN, SUZY [address] [address] [place] [phone] Discharge Disposition: Discharged to home or Selfcare [...] PM CDT Legal Sex Female 2:47 AM TOOL TROUBLE SHOOTER Gender Identity Female 11/25/2022 4:06 PM CDT Sexual Orientation Not on file 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 90 Capsule 08/04/2023 4 documented as of this encounter Progress Notes * Ligia Choi APRN, CNP - 08/04/2023 4:45 PM CDT [facility] message sent documented in this encounter Plan of Treatment Upcoming Encounters Date Type Department Care Team (Late st Contact Info) Description 04/28/2024 10:00 AM TOOL TROUBLE SHOOTER [facility] [address] [place] [address] Karen Andino, HOSPITAL CLERK, VACUUM CLEANER ASSEMBLER [address] [place] [address] Discharge Disposition: Discharged to home or Selfcare 06/02/2024 10:00 AM TOOL TROUBLE SHOOTER Office Visit [facility] [address] [place] [address] Kelin Castle, PAC [address] [place] [address] documented as of this encounter Procedures Procedure Name Priority Date/Time Associated Diagnosis Comments XR CALCANEUS RIGHT Routine 08/04/2023 5: 10 PM CDT Pain of right heel documented in this encounter Results * XR CALCANEUS RIGHT (08/04/2023 5:10 PM CDT) Anatomical Region Laterality Modality LOWER EXTREMITY, Calcaneus Right Digit al Radiography 08/05/2023 8:30 AM CDT Impressions 08/05/2023 8:33 AM CDT IMPRESSION: Small right plantar heel spur. Narrative 08/05/2023 8:33 AM CDT EXAM DESCRIPTION: XR CALCANEUS RIGHT REASON FOR STUDY: Pt states plantar calcaneus pain x 2-3 weeks. Pain worse with standing. No known injury, No previous surgery ? FINDINGS: Two views nonweightbearing submitted without comparison. No acute fractures are identified. ??Small plantar heel spur is present. ??The joint spaces are normal. THIS IS AN ELECTRONICALLY VERIFIED FINAL REPORT 08/05/2023 8:30 AM - Electronically signed by ??Kj Bonds M.D. MF: [id number] D: ??08/05/2023 8:30 AM T: ??08/05/2023 8:30 AM Report ID: [id number] Reading Location: ??[id number] Procedure Note Kj Bonds MD - 08/05/2023 EXAM DESCRIPTION: XR CALCANEUS RIGHT REASON FOR STUDY: Pt states plantar calcaneus pain x 2-3 weeks. Pain worse with standing. No known injury, No previous surgery FINDINGS: Two views nonweightbearing submitted without comparison. No acute fractures are identified. Small plantar heel spur is present. The joint spaces are normal. THIS IS AN ELECTRONICALLY VERIFIED FINAL REPORT 08/05/2023 8:30 AM - Electronically signed by Kj Bonds M.D. MF: [id number] Report ID: [id number] Reading Location: [id number] IMPRESSION: Small right plantar heel spur. Ligia Choi HOSPITAL CLERK, VACUUM CLEANER ASSEMBLER IMG DIAGNOSTIC ORDER DREAD Final Result documented in this encounter Visit Diagnoses Diagnosis Pain of right heel Pain in limb documented in this encounter Additional Health Concerns Assessment Noted Time PHQ-9 Depression Total Score: 10 024 3:18 PM CDT documented as of this encounter Care Teams Slip Feeder Relationship Specialty Start Date End Date Kj Merlos MD #[address] [address] PCP - General Family Medicine 04/09/21 documented as of this encounter
--- OUTSIDE RECORDS SUMMARY | 2024-04-17 13:51 | XMS_ITS | Encounter Summary ---
Author Organization [facility] Care Team Providers Care Can Handler Name Role Phone Kj Merlos MD Primary Care Provider [phone] Encounter Details Date Type Department Care Team (Latest Contact Info) Description 12/11/2022 Travel Social History Tobacco Use Types Packs/Day Years Used Date Smoking Tobacco: Light Smoker Cigarettes Smokeless Tobacco: Never Comments:1-2 cigarettes a da y Alcohol Use Standard Drinks/Week Comments Yes 0 (1 standard drink = 0.6 oz pur e alcohol) Rare PHQ-2 Answer Date Recorded Total Score - Questions 1-9 0 08/0 06/2022 Education Answer Date Recorded What is the highest level of school you have completed or the highest degree you have received? 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 No / Unsure 12/11/2022 4:12 PM CDT documented as of this encounter Plan of Treatment Upcoming Encounters Date Type Department Care Team (Late st Contact Info) Description 04/28/2024 10:00 AM DOCKMASTER Appointment [facility] Cardiology Stress [address] [place] [address] Karen Andino APRN, PLANT MACHINIST [address] [place] [address] Discharge Disposition: Discharged to home or Selfcare 06/02/2024 10:00 AM DOCKMASTER Office Visit [facility] [address] [place] [address] Kelin Castle, PAC [address] [place] [address] documented as of this encounter Visit Diagnoses Not on filedocumented in this encounter Additional Health Concerns Assessment Noted Time PHQ-9 Depression Total Score: 0 11/15/19 23 2:00 PM CDT documented as of this encounter Care Teams Can Handler Relationship Specialty Start Date End Date Kj Merlos MD #[address] [address] PCP - General Family Medicine 04/09/21 documented as of this encounter
--- OUTSIDE RECORDS SUMMARY | 2024-04-17 13:51 | XMS_ITS | Encounter Summary ---
Author Organization [employer] Care Team Providers Care Paster Operator Name Role Phone Kj Merlos MD Primary Care Provider [phone] Encounter Details Date Type Department Care Team (Latest Contact Info) Description 09/15/2023 Travel Social History Tobacco Use Types Packs/Day Years Used Date Smoking Tobacco: Light Smoker Cigarettes Smokeless Tobacco: Never Comments:1-2 cigarettes a da y Alcohol Use Standard Drinks/Week Comments Yes 0 (1 standard drink = 0.6 oz pur e alcohol) Rare [facility] Utilities Answer Date Recorded In the past 12 months has th [employer] electric, gas, oil, or water company threatened [...] often do you attend chur ch or anabaptist services? Never 09/15/2023 Do you belong to any clubs o r organizations such as rastafarian groups, unions, fraternal or athletic groups, or [...] Total Score - Questions 1-9 10 06/12 [facility] of Occupat [...] place to sleep or slept in a correction (including now)? No 09/15/2023 Education Answer Date Recorded What is the highest level of school you have completed or the highest degree you have received? 10th grade 12/29/2020 Sexually Active Control Partners Comments Yes Male Comments No Sex and Gender Information Value Date Recorded Sex Assigned at Female 11/25/2022 4:06 PM CDT Legal Sex Female 2:47 AM WATER FITNESS INSTRUCTOR Gender Identity Female 11/25/2022 4:06 PM CDT [...] st Contact Info) Description 04/28/2024 10:00 AM WATER FITNESS INSTRUCTOR Appointment [facility] Cardiology Stress [address] [place] [address] Karen Andino APRN, SALES SUPPORT ADMINISTRATOR [address] [place] [address] Discharge Disposition: Discharged to home or Selfcare 06/02/2024 10:00 AM WATER FITNESS INSTRUCTOR Office Visit [facility] [address] [place] [address] Kelin Castle PAC [address] [place] [address] documented as of this encounter Visit Diagnoses Not on filedocumented in this encounter Additional Health Concerns Assessment Noted Time PHQ-9 Depression Total Score: 10 024 3:18 PM CDT documented as of this encounter Care Teams Paster Operator Relationship Specialty Start Date End Date Kj Merlos MD #[address] [address] PCP - General Family Medicine 04/09/21 documented as of this encounter
--- OUTSIDE RECORDS SUMMARY | 2024-04-17 13:51 | XMS_ITS | Encounter Summary ---
Author Organization [facility] Address [address] [place] [address] Phone Care Team Providers Care Powerbuilder Name Role Phone Kj Merlos MD Primary Care Provider [phone] Reason for Visit * Reason Comments Immunization/Injection Encounter Details Date Type Department Care Team ([facility] st Contact Info) Description 12/24/2022 9:10 AM CDT Immunization [facility] - [facility] Medicine - [place] [address] [place] [address] Clinic, [place] Nurse [place] Vitamin B deficiency (Primary Dx) Discharge Disposition: Discharged to home or Selfcare Social History Tobacco Use Types Packs/Day Years Used Date Smoking Tobacco: Light Smoker Cigarettes Smokeless Tobacco: Never Comments:1-2 cigarettes a da y Alcohol Use Standard Drinks/Week Comments Yes 0 (1 standard drink = 0.6 oz pur e alcohol) Rare PHQ-2 Answer Date Recorded Total Score - Questions 1-9 0 0806/2022 Education Answer Date Recorded What is the highest level of school you have completed or the highest degree you have received? 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 No / Unsure 12/24/2022 8:46 AM CDT documented as of this encounter Progress Notes * Margarita Quinonez RN - 12/24/2022 9:10 AM CDT Esther presents for weekly injection of b12 for diagnosis of b12 deficiency per order of Sherly dated 11/19/22. Patient tolerated injection well without incident. See Medication Administration Record (MAR) activity for details. documented in this encounter Plan of Treatment Upcoming Encounters Date Type Department Care Team (Late st Contact Info) Description 04/28/2024 10:00 AM BACK STRIP MACHINE OPERATOR [facility] [address] [place] [address] Karen Andino APRN, SHIPPING PROCESSOR [address] [place] [address] Discharge Disposition: Discharged to home or Selfcare 06/02/2024 10:00 AM BACK STRIP MACHINE OPERATOR Office Visit [facility] [address] [place] [address] Kelin Castle, PAC [address] [place] [address] documented as of this encounter Visit Diagnoses Diagnosis Vitamin B deficiency- Primary Unspecified vitamin B deficiency documented in this encounter Administered Medications Inactive Administered Medications - up to 3 most recent administrations Medication Order MAR Action Action Date Dose Rate Site cyanocobalamin (VITAMIN B-12) injection 1,000 mcg 1,000 mcg, Intramuscular, WEEKLY, 4 doses, First dose on Fri12/03/22 at 1330, Last dose on Fri12/24/22 at 0900Indications:B12 deficiency Given 12/24/2022 8:53 AM CDT 1,000 mcg Left Deltoid Given 12/19/2022 9:13 AM CDT 1,000 mcg Ri ght Deltoid Given 12/11/2022 4:26 PM CDT 1,000 mcg Le ft Deltoid documented in this encounter Additional Health Concerns Assessment Noted Time PHQ-9 Depression Total Score: 0 11/15/19 2:00 PM CDT documented as of this encounter Care Teams Powerbuilder Relationship Specialty Start Date End Date Kj Merlos MD [address] [place] [address] PCP - General Family Medicine 04/09/21 documented as of this encounter
--- OUTSIDE RECORDS SUMMARY | 2024-04-17 13:51 | XMS_ITS | Encounter Summary ---
Author Organization [facility] Address [address] [place] [address] Phone Care Team Providers Care Manager Business Intelligence Name Role Phone Kj Merlos MD Primary Care Provider [phone] Reason for Referral * Radiology Services (Routine) - Closed Specialty Diagnoses / Procedures Referred By Contrebecca t Referred To Contact Radiology Diagnoses Pain of right heel Procedures XR CALCANEUS RIGHT Ligia Choi APRN, SUZY [address] [address] Phone: tel: fax: Referral ID Status Reason Start Date Expiration Date Visits Re quested Visits Authorized [id number] Closed 08/04/2023 1 1 Reason for Visit * Reason Comments Follow-up She is here for a 6 week follow up. She also said that when she walks barefoot her heal hurts. Also, wants to know if she can get something ordered for rash under her breasts. She also would like to discuss changing the dosage on her anxiety/depression medication. 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 file Not on file documented as of this encounter Last Filed Vital Signs Vital Sign Reading Time Taken Comments Blood Pressure 124/76 08/04/2023 3:36 PM CDT Pulse 83 08/04/2023 3:36 PM CDT Temperature 36.6 ??C (97.8 ??F) 08/04/2023 3:36 PM CD T Respiratory Rate 14 08/04/2023 3:36 PM CDT Oxygen Saturation 98% 08/04/2023 3:36 PM CDT Inhaled Oxygen Concentration - - Weight 89.4 kg (197 lb 3.2 oz) 08/04/2023 3:36 P M CDT Height 154.9 cm (5' 1 ) 08/04/2023 3:36 PM CDT Body Mass Index 37.26 08/04/2023 3:36 PM CDT documented in this encounter Progress Notes * Paige Duggan - 08/04/2023 3:30 PM CDT Esther Day, 32 y.o., female is here for Follow-up (She is here for a 6 week follow up.) Medication Refills: Patient reports/denies need for medication refills. Orders Pended: no Requested Prescriptions No prescriptions requested or ordered in this encounter Home Medications Medication Sig Start Date End Date Taking? Authorizing Provider triamcinolone (KENALOG) 0.1 % Cream APPLY CREAM EXTERNALLY TWICE DAILY TO RASH 06/23/23 Yes Ligia Choi APRN, CNP venlafaxine (EFFEXOR-XR) 37.5 MG CAPSULE SR 24 HR Take 1 Capsule by mouth daily. 06/23/23 Yes Ligia Choi APRN, CNP Zafemy 150-35 [...] Planning, and HCC * Ligia Choi APRN, CNP - 08/04/2023 3:30 PM CDT Images from the original note were not included. [facility] [address] [facility] [address] Dept: [phone] Dept Loc: [phone] Loc Patient: Esther Day : 1990 Sex: female Subjective Subjective: HPI: Esther Day presents for Follow-up (She is here for a 6 week follow up. She also said that when she walks barefoot her heal hurts. Also, wants to know if she can get something ordered for rash under her breasts. She also would like to discuss changing the dosage on her anxiety/depression medication.) . Esther Day is a 32 y.o. femalewho presents for follow-up of anxiety. She is accompanied by noone. She complains of insomnia. Other symptoms include chest pain, shortness of breath, racing thoughts, feelings of losing control, difficulty concentrating, headaches, and feeling overwhelmed. She denies panic attacks since starting medications. Since the last visit, the symptoms are improving. She denies current and past suicidal and homicidal intent and plan. Current treatment includes antidepressants (Effexor). She complains of the following treatment side effects: none. She also reports heel pain on the right side. She states its better when she has shoes on. She is always on her feet. She reports its a sharp pain up her heel. No achilles tender. She also is having a rash that comes and goes under her breasts and her stomach. She reports it is very itches. Past Medical History Positives Diagnosis Date Abscess [...] UPPER BACK; Surgeon: Gareth Em MD; Location: [facility]; Service: General CARPAL TUNNEL RELEASE Right 04/29/2018 Procedure: CARPAL TUNNEL RELEASE RIGHT; Surgeon: Trent Blanton MD; Location: [facility]; Service: Orthopaedic WRIST GANGLION EXCISION Right 04/29/2018 Procedure: GANGLION CYST EXCISION REMOVAL RIGHT WRIST; Surgeon: Trent Blanton MD; Location: [facility]; Service: Orthopaedic LIPOMA RESECTION Bilateral 02/18/2019 Procedure: EXCISION LIPOMAS LOWER BACK TIMES TWO; Surgeon: Escobar Goodman MD; Location: [facility]; Service: General LAPAROSCOPIC APPENDECTOMY N/A 02/21/2021 Procedure: LAPAROSCOPIC APPENDECTOMY; Surgeon: Rm Butler MD; Location: [facility]; Service: General UMBILICAL HERNIA REPAIR N/A 02/21/2021 Procedure: LAPAROSCOPIC UMBILICAL HERNIA REPAIR- NO MESH; Surgeon: Rm Butler MD; Location: [facility]; Service: General MYRINGOTOMY Bilateral TONSILLECTOMY Review of Systems Constitutional: Negative for activity change, appetite change, chills, fatigue and fever. Respiratory: Negative for cough, chest tightness, shortness of breath and wheezing. Cardiovascular: Negative for chest pain, palpitations and leg swelling. Gastrointestinal: Negative for constipation, diarrhea, nausea and vomiting. Musculoskeletal: Positive for arthralgias (heel pain) and gait problem. Skin: Positive for rash. Neurological: Negative for dizziness, light-headedness and headaches. Psychiatric/Behavioral: Positive for agitation and sleep disturbance. Negative for behavioral problems, confusion, decreased concentration, dysphoric mood, hallucinations, self-injury and suicidal ideas. The patient is nervous/anxious. The patient is not hyperactive. Objective Objective: BP 124/76 (BP Location: Left Arm, BP Position: Sitting, BP Cuff Size: Regular) Pulse 83 Temp 97.8 ??F (36.6 ??C) (Temporal) Resp 14 Ht 5' 1 (1.549 m) Wt 197 lb 3.2 oz (89.4 kg) LMP 08/01/2023 (Exact Date) SpO2 98% BMI 37.26 kg/m?? Physical Exam Vitals and nursing note reviewed. Constitutional: General: She is not in acute distress. Appearance: Normal appearance. She is well-developed. She is not diaphoretic. HENT: Head: Normocephalic and atraumatic. Right Ear: External ear normal. Left Ear: External ear normal. Mouth/Throat: Mouth: Mucous membranes are moist. Pharynx: Oropharynx is clear. Eyes: Pupils: Pupils are equal, round, and reactive to light. Neck: Vascular: No carotid bruit. Trachea: No tracheal deviation. Cardiovascular: Rate and Rhythm: Normal rate and regular rhythm. Pulses: Normal pulses. Dorsalis pedis pulses are 2+ on the right side. Posterior tibial pulses are 2+ on the right side. Heart sounds: Normal heart sounds. No murmur [...] motion. Cervical back: Normal range of motion. Right foot: Normal range of motion. No deformity, bunion, Charcot foot, foot drop or prominent metatarsal heads. Feet: Feet: Right foot: Skin integrity: Skin integrity normal. Skin: General: Skin is dry. Findings: Rash (scattered raised rash to torso) present. Neurological: Mental Status: She is alert and oriented to person, place, and time. Mental status is at baseline. Psychiatric: Attention and Perception: Attention and perception normal. Mood and Affect: Mood and affect normal. Speech: Speech normal. Behavior: Behavior normal. Behavior is cooperative. Thought Content: Thought content normal. Cognition and Memory: Cognition and memory normal. Judgment: Judgment normal. Medical Decision Making: Assessment & Plan Diagnoses and all orders for this visit: Pain of right heel - XR CALCANEUS RIGHT; Future Anxiety - Discontinue: venlafaxine (EFFEXOR-XR) 37.5 MG CAPSULE SR 24 HR; Take 2 Capsules by mouth daily. - venlafaxine (EFFEXOR-XR) 75 MG CAPSULE SR 24 HR; Take 1 Capsule by mouth daily. Heat rash - triamcinolone (KENALOG) 0.1 % Cream; APPLY CREAM EXTERNALLY TWICE DAILY TO RASH Patient has a referral to Dermatology pending. Continue triamcinolone ointment. Patient is doing well on Effexor but feels she could have more benefit. Will increase to 75 mg. Discussed with patient regarding pain right heel. Possibly spur. Will send for x-ray and then determine further steps. Return in about 6 weeks (around 09/15/2023). documented in this encounter Plan of Treatment Upcoming Encounters Date Type Department Care Team (Late st Contact Info) Description 04/28/2024 10:00 AM TANK STAVE ASSEMBLER [facility]ointment [facility] Cardiology Stress [address] [place] [address] Karen Andino APRN, FIRST HELPER [address] [place] [address] Discharge Disposition: Discharged to home or Selfcare 06/02/2024 10:00 AM TANK STAVE ASSEMBLER Office Visit [facility] - Family [facility] [address] [place] [address] Kelin Castle, SARABJIT [address] [place] [address] documented as of this encounter Results * XR CALCANEUS RIGHT [...] AM T: ??08/05/2023 8:30 AM Report ID: [id number] Reading Location: [id number] Procedure Note Kj Bonds MD - 08/05/2023 [...] Kj Bonds M.D. MF: YAO Report ID: [id number] Reading Location: [id number] IMPRESSION: Small right plantar heel spur. Ligia Choi HOLE DIGGER TRUCK DRIVER, FIRST HELPER IMG DIAGNOSTIC ORDER DREAD Final Result documented in this encounter Visit Diagnoses Diagnosis Pain of right heel- Primary Pain in limb Anxiety Anxiety state, unspecified Heat rash Prickly heat Pain of right heel Pain in limb documented in this encounter Additional Health Concerns Assessment Noted Time PHQ-9 Depression Total Score: 10 024 3:18 PM CDT documented as of this encounter Care Teams Manager Business Intelligence Relationship Specialty Start Date End Date Kj Merlos MD [address] [place] [id number] PCP - General Family Medicine 04/09/21 documented as of this encounter
--- OUTSIDE RECORDS SUMMARY | 2024-04-17 13:51 | XMS_ITS | Encounter Summary ---
Author Organization [facility] Address [address] [place] [address] Phone Care Team Providers Care Networking Technician Name Role Phone Kj Merlos MD Primary Care Provider [phone] Reason for Visit * Reason Onset Date Comments Results 07/18/2023 Encounter Details Date Type Department Care Team (Late st Contact Info) Description 07/18/2023 Telephone [facility] [address] [place] [address] Ligia Choi APRN, FRAME GATE MORTISER OPERATOR #[address] [address] Results Social History Tobacco Use Types [...] PM CDT Legal Sex Female 2:47 AM CORPORATE PLANNER Gender Identity Female 11/25/2022 4:06 PM CDT Sexual Orientation Not on file 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 Thanks for the update * Telephone Encounter - Francie Leon RN - 07/18/2023 8:58 AM CDT Called and spoke with patient, she stated that she is taking her iron and Vitamin C. She stated that she has sinus issues going on and that she has that spot on her leg, maybe that is why her WBC is elevated. * Telephone Encounter - Francie Leon RN - 07/18/2023 8:44 AM CDT Images from the original note were not included. Arlyn Santana I am so sorry for the delay. Your labs look ok. You are deficient in iron so make sure you are taking a iron supplement daily. If that affects your bowels you can go to every other day. Also it showed a elevated white blood cell count. Were you feeling ill? * Telephone Encounter - Francie Leon RN - 07/18/2023 8:44 AM CDT ----- Message from Ligia Choi APRN, CNP sent at 07/17/2023 10:08 PM CDT ----- Please notify patient of [employer] message. Iron is low, needs to take iron supplement daily. documented in this encounter Plan of Treatment Upcoming Encounters Date Type Department Care Team (Late st Contact Info) Description 04/28/2024 10:00 AM CORPORATE PLANNER Appointment [facility] Cardiology Stress [address] [place] [address] Karen Andino APRN, FRAME GATE MORTISER OPERATOR [address] [place] [address] Discharge Disposition: Discharged to home or Selfcare 06/02/2024 10:00 AM CORPORATE PLANNER Office Visit [facility] [address] [place] [address] Kelin Castle, PAC [address] [place] [address] documented as of this encounter Visit Diagnoses Not on filedocumented in this encounter Additional Health Concerns Assessment Noted Time PHQ-9 Depression Total Score: 10 024 3:18 PM CDT documented as of this encounter Care Teams Networking Technician Relationship Specialty Start Date End Date Kj Merlos MD #[address] [address] PCP - General Family Medicine 04/09/21 documented as of this encounter
--- OUTSIDE RECORDS SUMMARY | 2024-04-17 13:51 | XMS_ITS | Encounter Summary ---
Author Organization [facility] Address [address] [place] [address] Phone Care Team Providers Care Sketch Artist Name Role Phone Kj Merlos MD Primary Care Provider [phone] Reason for Visit * Reason Comments Rash Encounter Details Date Type Department Care Team ([facility] Contact Info) Description 03/06/2023 8:29 AM SCREEN ROOM OPERATOR - 03/06/2023 9:25 AM SCREEN ROOM OPERATOR Emergency [facility] Emergency [address] [place] [address] Skyler Myers MD [address] [place] [address] Contact dermatitis Discharge Disposition: Discharged to home or Selfcare [...] PM CDT Legal Sex Female 2:47 AM SCREEN ROOM OPERATOR Gender Identity Female 11/25/2022 4:06 PM CDT Sexual Orientation Not on file 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 file Not on file documented as of this encounter Last Filed Vital Signs Vital Sign Reading Time Taken Comments Blood Pressure 121/70 03/06/2023 8:40 AM SCREEN ROOM OPERATOR Pulse 77 03/06/2023 8:40 AM SCREEN ROOM OPERATOR Temperature 36.6 ??C (97.9 ??F) 03/06/2023 8:40 AM CS T Respiratory Rate 16 03/06/2023 8:40 AM SCREEN ROOM OPERATOR Oxygen Saturation 97% 03/06/2023 8:40 AM SCREEN ROOM OPERATOR Inhaled Oxygen Concentration - - Weight 90.8 kg (200 lb 2.8 oz) 03/06/2023 8:40 A M SCREEN ROOM OPERATOR Height 154.9 cm (5' 1 ) 03/06/2023 8:40 AM SCREEN ROOM OPERATOR Body Mass Index 37.82 03/06/2023 8:40 AM SCREEN ROOM OPERATOR documented in this encounter Medications at Time of Discharge triamcinolone (KENALOG) 0.1 % Cream APPLY CREAM EXTERNALLY TWICE DAILY TO RASH 80 g 03/06/2023 4 documented as of this encounter ED Notes * Marcela Helton RN - 03/06/2023 9:24 AM CST Patient discharged. Discharge instructions and patient educational material reviewed with patient; questions and concerns addressed; patient verbalizes understanding, using teach back. Patient was given 1 prescription. Patient was informed no drinking alcohol, driving or operating heavy machinery while taking narcotics or muscle relaxants. Patient discharged. EN ROOM OPERATOR * Skyler Myers MD - 03/06/2023 9:01 AM CST Chief Complaint Patient presents with ??? Rash HPI 32 yo femae presents to the ED c/o rash. She was treated for poison elpidio in November. She initially had an oral steroid and rash resolved. Since then it continues to come back in the same location, on her left vernon. It is raised, red, and pruritic. She had been using a topical steroid, but recently ran out. She can not recall any recent exposures. Denies pain or fever. No current facility-administered medications for this encounter. Current Outpatient Medications Medication Sig Dispense Refill ??? triamcinolone (KENALOG) 0.1 % Cream APPLY CREAM EXTERNALLY TWICE DAILY TO RASH 80 g 0 Allergies Allergen Reactions ??? Augmentin [Amoxicillin-Pot Clavulanate] Rash and Itching ??? Ceclor [Cefaclor] Hives and Rash ??? Codeine Hives and Itching Past Medical History Positives Diagnosis Date ??? Abscess of face Multiple -face and leg ??? Acid reflux ??? Allergic rhinitis ??? Anxiety ??? Chronic back pain ??? GERD (gastroesophageal reflux disease) ??? Headache ??? History of seizure ??? IBS (irritable bowel syndrome) ??? Migraines Past Surgical History: Procedure Laterality Date ??? CARPAL TUNNEL RELEASE Right 04/29/2018 Procedure: CARPAL TUNNEL RELEASE RIGHT; Surgeon: Trent Blanton MD; Location: [facility]; Service: Orthopaedic ??? EXPLORATORY OF ABDOMEN 2002 Endo fundal plication ??? LAPAROSCOPIC APPENDECTOMY N/A 02/21/2021 Procedure: LAPAROSCOPIC APPENDECTOMY; Surgeon: Rm Butler MD; Location: [facility]; Service: General ??? LIPOMA RESECTION Left 07/04/2017 Procedure: EXCISION LIPOMA LEFT UPPER BACK; Surgeon: Gareth Em MD; Location: [facility]; Service: General ??? LIPOMA RESECTION Bilateral 02/18/2019 Procedure: EXCISION LIPOMAS LOWER BACK TIMES TWO; Surgeon: Escobar Goodman MD; Location: [facility]; Service: General ??? MYRINGOTOMY Bilateral 1989' ??? TONSILLECTOMY 1989' ??? UMBILICAL HERNIA REPAIR N/A 02/21/2021 Procedure: LAPAROSCOPIC UMBILICAL HERNIA REPAIR- NO MESH; Surgeon: Rm Butler MD; Location: [facility]; Service: General ??? WRIST GANGLION EXCISION Right 04/29/2018 Procedure: GANGLION CYST EXCISION REMOVAL RIGHT WRIST; Surgeon: Trent Blanton MD; Location: [facility]; Service: Orthopaedic Social History Socioeconomic History ??? Marital status: Spouse name: Not on file ??? Number of children: 2 ??? Years of education: Not on file ??? Highest education level: 10th grade Occupational History ??? 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 Tobacco Use ??? Smoking status: Light Smoker Years: 15 Types: Cigarettes ??? Smokeless tobacco: Never ??? Tobacco comments: 1-2 cigarettes a day Vaping Use ??? Vaping Use: Never used Substance and Sexual Activity ??? Alcohol use: Yes Comment: Rare ??? Drug use: Yes Types: Marijuana Comment: sleep and anxiety and pain ??? Sexual activity: Yes Partners: Male Other Topics Concern ??? Service No ??? Blood Transfusions No ??? Caffeine Concern No ??? Occupational Exposure No ??? Hobby Hazards No ??? Sleep Concern Yes ??? Stress Concern Yes ??? Weight Concern Yes ??? Special Diet No ??? Back Care Yes ??? Exercise Yes ??? Bike Helmet No ??? Seat Belt Yes ??? Self-Exams Yes Social History Narrative ??? Not on file BP 121/70 Pulse 77 Temp 97.9 ??F (36.6 ??C) (Tympanic) Resp 16 Ht 5' 1 (1.549 m) Wt 200 lb 2.8 oz (90.8 kg) LMP 02/20/2023 (Approximate) SpO2 97% BMI 37.82 kg/m?? Review of Systems Constitutional: Negative for chills and fever. Skin: Positive for rash. Negative for wound. Neurological: Negative for weakness and numbness. All other systems reviewed and are negative. Physical Exam Vitals and nursing note reviewed. Constitutional: General: She is not in acute distress. Appearance: Normal appearance. She is not ill-appearing. HENT: Head: Normocephalic and atraumatic. Right Ear: External ear normal. Left Ear: External ear normal. Nose: Nose normal. Cardiovascular: Rate and Rhythm: Normal rate. Pulses: Normal pulses. Pulmonary: Effort: Pulmonary effort is normal. No respiratory distress. Skin: Comments: Fine papular mildly erythematous rash to superior portion of left vernon. Neurological: General: No focal deficit present. Mental Status: She is alert and oriented to person, place, and time. Procedures No results found for this or any previous visit (from the past 24 hour(s)). Imaging Results None Medical Decision Making DDx: contact dermatitis, other Clinical Impression 1. Contact dermatitis Disposition: Discharge The patient remained stable throughout their ED stay. My clinical impression was discussed with thepatient/family. I gave them the opportunity to ask questions, and addressed them as completely as possible given the information available at present. The therapeutic plan was discussed, instructionswere given and the importance of primary care follow up was stressed and encouraged. The patient/family voiced understanding of the plan, indications to return, and the need for follow up. EN ROOM OPERATOR * Marcela Helton RN - 03/06/2023 8:[address] Myers at bedside EN ROOM OPERATOR * Marcela Helton RN - 03/06/2023 8:47 AM CST Patient is resting in room with call light at bedside. Patient informed about wait time and verbalizes understanding. Patient denies needs at this time and verbalizes understanding that RN will complete hourly rounding. EN ROOM OPERATOR * Amara Bauer RN - 03/06/2023 8:44 AM CST Patient ambulatory to ER room #2 with c/o rash to left lower leg that has been off and on for a fewmonths. Patient reports itching. Denies pain. Denies fevers. EN ROOM OPERATOR documented in this encounter Plan of Treatment Upcoming Encounters Date Type Department Care Team (Late st Contact Info) Description 04/28/2024 10:00 AM SCREEN ROOM OPERATOR Appointment [facility] Cardiology Stress [address] [place] [phone] Karen Andino, VAN CDL DRIVER, ELECTROPLATER APPRENTICE [address] [place] [phone] Discharge Disposition: Discharged to home or Selfcare 06/02/2024 10:00 AM SCREEN ROOM OPERATOR Office Visit [facility] - Family [facility] #[address] [place] [address] Kelin Castle, [facility] #[address] [place] [address] documented as of this encounter Visit Diagnoses Diagnosis Contact dermatitis- Primary Contact dermatitis and other eczema, due to unspecified cause documented in this encounter Additional Health Concerns Assessment Noted Time PHQ-9 Depression Total Score: 0 11/15/19 23 2:00 PM CDT documented as of this encounter Care Teams Sketch Artist Relationship Specialty Start Date End Date [facility]los [facility] [address] [address] PCP - General Family Medicine 04/09/21 documented as of this encounter
--- OUTSIDE RECORDS SUMMARY | 2024-04-17 13:51 | XMS_ITS | Encounter Summary ---
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 No / Unsure 12/19/2022 9:04 AM CDT documented as of this encounter Plan of Treatment Upcoming Encounters Date Type Department Care Team (Late st Contact Info) Description 04/28/2024 10:00 AM FIGHTING VEHICLE SYSTEMS MAINTAINER Appointment [facility] Cardiology Stress [address] [place] [address] Karen Andino APRN, AUTOMATIC CHIEF #2 [place] [address] Discharge Disposition: Discharged to home or Selfcare 06/02/2024 10:00 AM FIGHTING VEHICLE SYSTEMS MAINTAINER Office Visit [facility] [place] [address]2 [place] [address] Kelin Castle, PAC [address]2 [place] [address] documented as of this encounter Visit Diagnoses Not on filedocumented in this encounter Additional Health Concerns Assessment Noted Time PHQ-9 Depression Total Score: 0 11/15/19 23 2:00 PM CDT documented as of this encounter Care Teams Financial Accounting Analyst Relationship Specialty Start Date End Date Kj Merlos MD #[address] [address] PCP - General Family Medicine 04/09/21 documented as of this encounter
--- OUTSIDE RECORDS SUMMARY | 2024-04-17 13:51 | XMS_ITS | Encounter Summary ---
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 file Not on file documented as of this encounter Plan of Treatment Upcoming Encounters Date Type Department Care Team (Late st Contact Info) Description 04/28/2024 10:00 AM CLINICAL RESEARCH SPEC [facility] Stress 1 [place] [address] Karen Andino, FOOD VENDOR, MOLD CUTTING MACHINE OPERATOR [address]2 [place] [address] Discharge Disposition: Discharged to home or Selfcare 06/02/2024 10:00 AM CLINICAL RESEARCH SPEC Office Visit [facility] #2 [place] [address] Kelin Castle, [facility] #2 [place] [address] documented as of this encounter Visit Diagnoses Not on filedocumented in this encounter Additional Health Concerns Assessment Noted Time PHQ-9 Depression Total Score: 10 06/22/ 024 3:18 PM CDT documented as of this encounter Care Teams Fountain Waitress/Waiter Relationship Specialty Start Date End Date Kj Merlos MD #[address] [address] PCP - General Family Medicine 04/09/21 documented as of this encounter
--- OUTSIDE RECORDS SUMMARY | 2024-04-17 13:51 | XMS_ITS | Encounter Summary ---
Author Organization [facility] Address [address] [place] [address] Phone Care Team Providers Care Precinct Police Captain Name Role Phone Kj Merlos MD Primary Care Provider [phone] Reason for Visit * Reason Comments Immunization/Injection Encounter Details Date Type Department Care Team ([facility] st Contact Info) Description 12/11/2022 4:00 PM CDT Immunization [facility] - [place] [address]2 [place] [address] Clinic, [place] Nurse [place] B12 deficiency Discharge Disposition: Discharged to home or [...] PM CDT Legal Sex Female 2:47 AM NURSE RN BSN Gender Identity Female 11/25/2022 4:06 PM CDT [...] PM CDT documented as of this encounter Progress Notes * Margarita Quinonez RN - 12/11/2022 4:00 PM CDT Esther presents for weekly injection of b12 for diagnosis of b12 deficiency per order of Dr Merlos dated 11/19/22. Patient tolerated injection well without incident. See Medication Administration Record(MAR) activity for details. documented in this encounter Plan of Treatment Upcoming Encounters Date Type Department Care Team (Late st Contact Info) Description 04/28/2024 10:00 AM NURSE RN BSN [facility] Stress 1 [place] [address] Karen Andino APRN, CONCRETE FINISHER [address]2 [place] [address] Discharge Disposition: Discharged to home or Selfcare 06/02/2024 10:00 AM NURSE RN BSN Office Visit [facility] - Family Medicine [facility] #2 [place] [address] Kelin Castle, PAC [address] [place] [address] documented as of this encounter Visit Diagnoses Diagnosis B12 deficiency Other B-complex deficiencies documented in this encounter Administered Medications Inactive [...] documented as of this encounter Care Teams Precinct Police Captain Relationship Specialty Start Date End Date Kj Merlos MD #2 [place] [address] PCP - General Family Medicine 04/09/21 documented as of this encounter
--- OUTSIDE RECORDS SUMMARY | 2024-04-17 13:51 | XMS_ITS | Encounter Summary ---
Author Organization [employer] Care Team Providers Care Watch Supervisor Name Role Phone Kj Merlos MD Primary Care Provider [phone] Tatiana Logan APRN, BLENDING TANK HELPER Unavailable Encounter Details Date Type Department Care Team (Latest Contact Info) Description 01/29/2024 Travel Social History Tobacco Use Types Packs/Day Years Used Date Smoking Tobacco: Light Smoker Cigarettes Smokeless Tobacco: Never Comments:1-2 cigarettes a da y Alcohol Use Standard Drinks/Week Comments Yes 0 (1 standard drink = 0.6 oz pur e alcohol) Rare [facility] Utilities Answer Date Recorded In the past 12 months has [employer] electric, gas, oil, or water company threatened [...] often do you attend chur ch or congregation services? Patient declined 01/15/2024 Do you belong to any clubs o r organizations such as samaritan groups, unions, fraternal or athletic groups, or [...] 8 06/2023 [facility] of Occupat ional Health - Occupational Stress [...] place to sleep or slept in a half-way (including now)? 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 file Not on file documented as of this encounter Plan of Treatment Upcoming Encounters Date Type Department Care Team (Late st Contact Info) Description 04/28/2024 10:00 AM DIRECTOR COUNCIL ON AGING Appointment [facility] Cardiology Stress 1 [place] [phone] Karen Andino APRN, BLENDING TANK HELPER #2 [place] [phone] Discharge Disposition: Discharged to home or Selfcare 06/02/2024 10:00 AM DIRECTOR COUNCIL ON AGING Office Visit [facility] [address]2 [place] [address] Kelin Castle, PAC [address] [place] [address] documented as of this encounter Visit Diagnoses Not on filedocumented in this encounter Additional Health Concerns Assessment Noted Time PHQ-9 Depression Total Score: 8 01/15/20 24 4:34 PM CDT documented as of this encounter Care Teams Watch Supervisor Relationship Specialty Start Date End Date Kj Merlos MD #[address] [address] PCP - General Family Medicine 04/09/21 Tatiana Logan APRN, BLENDING TANK HELPER [address] [place] [address] Nurse Practitioner Advanced Practice Nurse 01/29/24 documented as of this encounter
--- OUTSIDE RECORDS SUMMARY | 2024-04-17 13:51 | XMS_ITS | Encounter Summary ---
Author Organization [facility] Address [address] [place] [address] Phone Care Team Providers Care Stonecutter Hand Name Role Phone Kj Merlos MD Primary Care Provider [phone] Reason for Referral * Radiology Services (Routine) - Closed Specialty Diagnoses / Procedures Referred By Contac t Referred To Contact Radiology Diagnoses Syncope, unspecified syncope type Procedures EKG 12 LEAD Kelin Castle PAC #2 [place] [address] Phone: tel: fax: Referral ID Status Reason Start Date Expiration Date Visits Re quested Visits Authorized [id number] Closed 01/15/2024 1 1 * Consult, Test & Initiate Treatment (Routine) - Closed Specialty Diagnoses / Procedures Referred By Contac t Referred To Contact Diagnoses Diarrhea, unspecified type Abdominal cramping Kelin Castle PAC [address] [place] [address] Phone: tel: fax: [facility] - Gastroenterology [facility] [place] [address] [place] [address] Phone: tel: fax: Referral ID Status Reason Start Date Expiration Date Visits Re quested Visits Authorized [id number] Closed 01/15/2024 1 1 Scheduling Instructions Esther is being referred for diarrhea/ abdominal cramping. Please contact patient for scheduling questions or concerns. Reason for Visit * Reason Comments Follow-up Encounter Details Date Type Department Care Team (Late st Contact Info) Description 01/15/2024 3:45 PM CDT Office Visit [facility] [place] [address]2 [place] [address] Kelin Castle PAC [address] [place] [address] Anxiety (Primary Dx); Diarrhea, unspecified type; Abdominal cramping; Syncope, unspecified syncope type Discharge Disposition: Discharged to home or Selfcare Social History Tobacco Use Types Packs/Day Years Used Date Smoking Tobacco: Light Smoker Cigarettes Smokeless Tobacco: Never Tobacco Cessation:Ready to Q uit: Not Asked; Counseling Given: Not Answered Comments:1-2 cigarettes a day Alcohol Use Standard Drinks/Week Comments Yes 0 (1 standard drink = 0.6 oz pur e alcohol) Rare [facility] Utilities Answer Date Recorded In the past 12 months has [employer], gas, oil, or water [employer] threatened to shut off services in your [...] often do you attend chur ch or zoroastrianism services? 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 Not on file documented as of this encounter Last Filed Vital Signs Vital Sign Reading Time Taken Comments Blood Pressure 122/72 01/15/2024 4:04 PM CDT Pulse 78 01/15/2024 4:04 PM CDT Temperature 36.1 ??C (96.9 ??F) 01/15/2024 4:04 PM CD T Respiratory Rate 16 01/15/2024 4:04 PM CDT Oxygen Saturation 98% 01/15/2024 4:04 PM CDT Inhaled Oxygen Concentration - - Weight 90.3 kg (199 lb) 01/15/2024 4:04 PM CDT Height 154.9 cm (5' 1 ) 01/15/2024 4:04 PM CDT Body Mass Index 37.6 01/15/2024 4:04 PM CDT documented in this encounter Functional [...] Progress Notes * Shannan Jimenez MA - 01/15/2024 3:45 PM CDT Esther Day, 33 y.o., female is here for Follow-up Medication Refills: Patient reports/denies need for medication refills. Orders Pended: no Requested Prescriptions No prescriptions requested or ordered in this encounter Home Medications Medication Sig Start Date End Date Taking? Authorizing Provider predniSONE (DELTASONE) 20 MG Tablet take 2 tablets by mouth once daily for 5 days 01/12/24 Yes ProviderSunita MD triamcinolone (KENALOG) 0.1 % Cream APPLY CREAM EXTERNALLY TWICE DAILY TO RASH 10/13/23 Yes Kj Merlos MD venlafaxine (EFFEXOR-XR) 75 MG CAPSULE SR 24 HR Take 1 Capsule by mouth daily. 10/27/23 Yes Ligia Choi APRN, OPTIMIZATION CONSULTANT Zafemy 150-35 MCG/24HR PATCH WEEKLY APPLY 1 [...] 2 - PCV) 12/29/2021 Influenza Immunization (1) 12/14/2023 Orders Pended: no The following BPA's have been addressed with the patient today: Depression ANXIETY and SDOH * Shannan Jimenez MA - 01/15/2024 3:45 PM CDT Esther screened for Social Determinants of Health and screened positive for Stress, Tobacco Use, and Depression. Please address with patient. * Kelin Castle PAC - 01/15/2024 3:45 PM CDT Subjective: Subjective Patient is office today for follow-up anxiety depression medications. She has been on current dose for about 1 year and would like to increase. Also discussed IBS symptoms. Has 3-4 stools daily, occasional nighttime awakening for bowel movement. Sometimes dark stool. No bleeding Liquid No different foods Symptoms on and off for years, since adolescents. Had previous colonoscopy when young Gets cramping Had syncopal episode 01/03/24 got hot was outside, had eaten and 1 glass wine was with , out for less than 1 min Did not have chest pain shortness of breath palpitations. [place] got hot and sweaty. Review of Systems Constitutional: Positive for fatigue. Negative for chills and fever. Respiratory: Negative for cough and shortness of breath. Cardiovascular: Negative for chest pain. Gastrointestinal: Positive for abdominal pain and diarrhea. Negative for blood in stool, nausea andvomiting. Genitourinary: Negative for difficulty urinating and dysuria. Objective: Objective Physical Exam Vitals reviewed. Constitutional: Appearance: Normal appearance. She is not ill-appearing. HENT: Head: Normocephalic and atraumatic. Eyes: General: Right eye: No discharge. Left [...] for this visit: Anxiety - venlafaxine (EFFEXOR-XR) 150 MG CAPSULE SR 24 HR; Take 1 Capsule by mouth daily. Diarrhea, unspecified type - CMP (COMPREHENSIVE METABOLIC PANEL); Future - COMPLETE BLOOD COUNT (CBC) WITH DIFF; Future - CELIAC ANTIBODY PANEL; Future - GASTROENTEROLOGY REFERRAL; Future Abdominal cramping - GASTROENTEROLOGY REFERRAL; Future Syncope, unspecified syncope type - EKG 12 LEAD; Future - ADULT TRANS THORACIC ECHO 2D LMTD OR FU; Future - MAGNESIUM (MG); Future Other orders - Discontinue: predniSONE (DELTASONE) 20 MG Tablet; take 2 tablets by mouth once daily for 5 days - INFLUENZA,SPLIT VIRUS,TRIVALENT VACCINE IM - INFLUENZA IMMUNIZATION QUESTIONS - dicyclomine (BENTYL) 20 MG Tablet; Take 1 Tablet by mouth every 6 hours as needed (abdominal cramping/diarrhea). Patient will increase Effexor 150 mg daily. Discussed diarrhea labs rule out any celiac suggest consult with newspaper illustrator given Bentyl to take for IBS symptoms. Discussed dietary changes suggest start Benefiber. Since syncopal episode recommend EKG and echo. Will follow up when resulted however suspect heat exhaustion. Notify if any reoccurrence. Denies history of heart problems. Return to clinic in 6-8 weeks. Notify of any problems with med changes. * Olivia Renner MA - 01/15/2024 3:45 PM CDT Esther is here for Flu immunizations per order of Kelin Castle PA-C dated 01/15/24. Administered in right deltoid . Vaccine Information Sheet(s) were given on 01/15/24. Verbal consent was obtained. Esther tolerated the immunization well without incident. See Immunization activity for details. documented in this encounter Plan of Treatment Upcoming Encounters Date Type Department Care Team (Late st Contact Info) Description 04/28/2024 10:00 AM STAMPING PRESS OPERATOR [facility] Stress [address] [place] [address] Karen Andino APRN, OPTIMIZATION CONSULTANT [address] [place] [address] Discharge Disposition: Discharged to home or Selfcare 06/02/2024 10:00 AM STAMPING PRESS OPERATOR [facility] Visit [facility] [place] [address] [place] [address] Kelin Castle PAC [address] [place] [address] Scheduled Referrals Name Type Priority Associated Diagnoses Order Schedule GASTROENTEROLOGY REFERRAL Outpatient Referral Routine Diarrhea, unspecified type Abdominal cramping Expected: 01/15/2024, Expires: 01/14/2025 documented as of this encounter Results * EKG 12 LEAD (01/30/2024 2:40 PM CDT) Ventricular Rate 73 BPM EXTERNAL EKG Atrial Rate 73 BPM EXTERNAL EKG P-R Interval 144 ms EXTERNAL EKG QRS Duration 88 ms EXTERNAL EKG Q-T Duration 390 ms EXTERNAL EKG QTC CALCULATION 429 ms EXTERNAL EKG P [place] 23 degrees EXTERNAL EKG R [place] -15 degrees EXTERNAL EKG T [place] 51 degrees EXTERNAL EKG 01/30/2024 2:40 PM CDT Impressions EXTERNAL EKG - 02/07/2024 9:56 PM CDT Normal sinus rhythm Minimal voltage criteria for LVH, may be normal variant ( [place] product ) Inferior infarct , age undetermined Abnormal ECG No previous ECGs available Confirmed by Charles Longoria ([id number]) on 02/07/2024 9:56:08 PM Narrative Procedure Note Charles Longoria MD - 02/07/2024 IMPRESSION: Normal sinus rhythm Minimal voltage criteria for LVH, may be normal variant ( [place] product) Inferior infarct , age undetermined Abnormal ECG No previous ECGs available Confirmed by Charles Longoria ([id number]) on 02/07/2024 9:56:08 PM Kelin Castle PAC IMG ECG ORDERABLES Final Result Performing Organization Address City/[facility] Co de Phone Number EXTERNAL EKG * MAGNESIUM (MG) (01/29/2024 2:15 PM CDT) MAGNESIUM 1.9 1.6 - 2.6 mg/dL 01/29/2024 3:07 PM CDT [facility] Blood Venipuncture / Unknown 01/29/2024 2:15 PM CDT 01/29/2024 2:45 PM CDT Kelin Castle PAC CHEMISTRY ORDERABLES Fin al Result [facility] #1 [place] [address] * (ABNORMAL) CMP (COMPREHENSIVE METABOLIC PANEL) (01/29/2024 2:15 PM CDT) SODIUM 139 136 - 145 mmol/L 01/29/2024 3:07 PM CDT [facility] POTASSIUM 3.7 3.5 - 5.1 mmol/L 01/29/2024 3:07 PM CDT [facility] CHLORIDE 105 98 - 107 mmol/L 01/29/2024 3:07 PM CDT [facility] CO2, VENOUS 25 22 - 30 mmol/L 01/29/2024 3:07 PM CDT [facility] ANION GAP 12.7 <18.0 mmol/L 01/29/2024 3:07 PM CDT [facility] GLUCOSE 86 70 - 99 mg/dL 01/29/2024 3:07 PM CDT [facility] BUN 7 5 - 18 mg/dL 01/29/2024 3:07 PM CDT [facility] CREATININE, BLOOD 0.75 0.60 - 1.00 mg/dL 01/29/2024 3:07 PM CDT [facility] BUN/CREATININE RATIO 9(L) 12 - 20 ratio 01/29/2024 3:07 PM CDT [facility] TOTAL PROTEIN 7.0 6.3 - 8.2 g/dL 01/29/2024 3:07 PM CDT [facility] ALBUMIN 4.2 3.5 - 5.0 g/dL 01/29/2024 3:07 PM CDT [facility] A/G RATIO 1.5 1.0 - 2.2 01/29/2024 3:07 PM CDT [facility] CALCIUM 9.4 8.7 - 10.5 mg/dL 01/29/2024 3:07 PM CDT [facility] T BILI 0.4 0.2 - 1.2 mg/dL 01/29/2024 3:07 PM CDT [facility] SGOT (AST) 24 5 - 34 U/L 01/29/2024 3:07 PM CDT [facility] SGPT (ALT) 25 0 - 55 U/L 01/29/2024 3:07 PM CDT [facility] ALKALINE PHOSPHATASE 89 40 - 150 U/L 01/29/2024 3:07 PM CDT [facility] IS THE PATIENT REQUIRED TO BE FASTING? No 01/29/2024 3:07 PM CDT [facility] GFR, ESTIMATED >60 >=60 01/29/2024 3:07 PM CDT [facility] Comment: Creatinine Clearance is the preferred criteria for selecting drug dose adjustments in renally impaired patients. ??The GFR is provided as additional pertinent clinical information. GFR is reported in mL/min/1.73 sq m. Calculation based on the Chronic Kidney Disease Epidemiology Collaboration (CKD- EPI) equation refit without adjustment for race. GFR, EST. >60 >=60 024 3:07 PM CDT [facility] GFR, EST. NONAFRICAN >60 >=60 01/29/2024 3:07 PM CDT [facility] Blood Venipuncture / Unknown 01/29/2024 2:15 PM CDT 01/29/2024 2:45 PM CDT us Kelin Castle PAC CHEMISTRY ORDERABLES Fin al Result [facility] #1 [place] [address] documented in this encounter Visit Diagnoses Diagnosis Anxiety- Primary Anxiety state, unspecified Diarrhea, unspecified type Abdominal cramping Abdominal pain, unspecified site Syncope, unspecified syncope type Syncope, unspecified syncope type documented in this encounter Additional Health Concerns Assessment Noted Time PHQ-9 Depression Total Score: 8 01/15/20 24 4:34 PM CDT documented as of this encounter Care Teams Stonecutter Hand Relationship Specialty Start Date End Date Kj Merlos MD [address] [address] PCP - General Family Medicine 04/09/21 documented as of this encounter
--- OUTSIDE RECORDS SUMMARY | 2024-04-17 13:51 | XMS_ITS | Encounter Summary ---
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 Not on file documented as of this encounter Plan of Treatment Upcoming Encounters Date Type Department Care Team (Late st Contact Info) Description 04/28/2024 10:00 AM SENIOR SYSTEMS ENGINEER [facility] Stress [address] [place] [address] Karen Andino, HAUL DRIVER, HEAD TRIMMER [address] [place] [address] Discharge Disposition: Discharged to home or Selfcare 06/02/2024 10:00 AM SENIOR SYSTEMS ENGINEER Office Visit [facility] #2 [place] [address] Kelin Castle, [facility] #[address] [place] [address] documented as of this encounter Visit Diagnoses Not on filedocumented in this encounter Additional Health Concerns Assessment Noted Time PHQ-9 Depression Total Score: 0 11/15/19 23 2:00 PM CDT documented as of this encounter Care Teams Comb Setter Relationship Specialty Start Date End Date Kj Merlos MD #[address] [address] PCP - General Family Medicine 04/09/21 documented as of this encounter
--- OUTSIDE RECORDS SUMMARY | 2024-04-17 13:51 | XMS_ITS | Encounter Summary ---
Author Organization [facility] Care Team Providers Care Sign Fabricator Name Role Phone Kj Merlos MD Primary Care Provider Encounter Details Date Type Department Care Team (Latest Contact Info) Description 12/24/2022 Travel Social History Tobacco Use Types Packs/Day [...] PM CDT Legal Sex Female 2:47 AM AGRICULTURAL COMMODITIES GRADER Gender Identity Female 11/25/2022 4:06 PM CDT [...] st Contact Info) Description 04/28/2024 10:00 AM AGRICULTURAL COMMODITIES GRADER Appointment [facility] Cardiology Stress [address] [place] [address] Karen Andino APRN, HARDWARE INSTALLER #2 [place] [address] Discharge Disposition: Discharged to home or Selfcare 06/02/2024 10:00 AM AGRICULTURAL COMMODITIES GRADER Office Visit [facility] [place] #2 [place] [address] Kelin Castle, PAC [address] [place] [address] documented as of this encounter Visit Diagnoses Not on filedocumented in this encounter Additional Health Concerns Assessment Noted Time PHQ-9 Depression Total Score: 0 11/15/19 23 2:00 PM CDT documented as of this encounter Care Teams Sign Fabricator Relationship Specialty Start Date End Date Kj Merlos MD #[address] [address] PCP - General Family Medicine 04/09/21 documented as of this encounter
--- OUTSIDE RECORDS SUMMARY | 2024-04-17 13:51 | XMS_ITS | Encounter Summary ---
Author Organization [facility] Address [address] [place] [address] Phone Care Team Providers Care Accounting Recruiter Name Role Phone Kj Merlos MD Primary Care Provider [phone] Reason for Visit * Reason Comments Medication Refill Encounter Details Date Type Department Care Team (Late st Contact Info) Description 10/12/2023 Refill [facility] Medical [facility] - Family Medicine [facility] [address] [place] [id number] Ligia Choi APRN, ADMISSIONS DIRECTOR #[address] [address] Medication Refill Social History Tobacco Use Types Packs/Day Years Used Date Smoking Tobacco: Light Smoker Cigarettes Smokeless Tobacco: Never Comments:1-2 cigarettes a da y Alcohol Use Standard Drinks/Week Comments Yes 0 (1 standard drink = 0.6 oz pur e alcohol) Rare [facility] Utilities Answer Date Recorded In the past 12 months has th [employer] electric, gas, oil, or water company threatened [...] week 09/15/2023 How often do you attend [facility] or hindu services? Never 09/15/2023 Do you belong to any clubs o r organizations such as mormonism groups, unions, fraternal or athletic groups, or [...] Total Score - Questions 1-9 10 06/12 [facility] - Occupational Stress [...] a group home (including now)? No 09/15/2023 Education Answer Date Recorded What is the highest level of school you have completed or the highest degree you have received? 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 Requested Prescriptions Pending Prescriptions Disp Refills triamcinolone (KENALOG) 0.1 % Cream [Pharmacy Med Name: Triamcinolone Acetonide 0.1 % External Cream] 80 g 0 Sig: APPLY CREAM EXTERNALLY TWICE DAILY TO RASH Not Delegated - Topical Steroids Protocol Failed - 10/12/2023 7:53 AM Failed - This refill cannot be delegated Passed - Visit with relevant provider in past 12 months or upcoming 90 days Recent Visits Date Type Provider Dept 09/15/23 Office Visit Ligia Choi APRN, [facility] [place] 08/04/23 Office Visit Ligia Choi APRN, [facility] [place] 06/23/23 Office Visit Ligia Choi APRN, [facility] [place] 11/14/22 Office Visit Ligia Choi APRN, [facility] [place] Showing recent visits within past 365 days and meeting all other requirements Future Appointments No visits were found meeting these conditions. Showing future appointments within next 90 days and meeting all other requirements documented in this encounter Plan of Treatment Upcoming Encounters Date Type Department Care Team (Late st Contact Info) Description 04/28/2024 10:00 AM HABILITATION ASSISTANT Appointment [facility] Cardiology Stress [address] [place] [address] Karen Andino APRN, ADMISSIONS DIRECTOR [address] [place] [address] Discharge Disposition: Discharged to home or Selfcare 06/02/2024 10:00 AM HABILITATION ASSISTANT [facility] Visit [facility] [address] [place] [address] Kelin Castle PAC [address] [place] [address] documented as of this encounter Visit Diagnoses Diagnosis Heat rash Prickly heat documented in this encounter Additional Health Concerns Assessment Noted Time PHQ-9 Depression Total Score: 10 024 3:18 PM CDT documented as of this encounter Care Teams Accounting Recruiter Relationship Specialty Start Date End Date Kj Merlos MD #[address] [address] PCP - General Family Medicine 04/09/21 documented as of this encounter
--- OUTSIDE RECORDS SUMMARY | 2024-04-17 13:51 | XMS_ITS | Encounter Summary ---
Author Organization [facility] Address [address] [place] [address] Phone Care Team Providers Care Tire Care Manager Name Role Phone Kj Merlos MD Primary Care Provider [phone] Reason for Visit * Reason Comments Immunization/Injection Encounter Details Date Type Department Care Team (Late st Contact Info) Description 12/19/2022 9:00 AM CDT Immunization [facility] - Family Medicine [facility] [address] [place] [address] Clinic, [place] [facility] [place] B12 deficiency (Primary Dx) Discharge Disposition: Discharged to [...] PM CDT Legal Sex Female 2:47 AM SCAN COORDINATOR Gender Identity Female 11/25/2022 4:06 PM CDT [...] Progress Notes * Margarita Quinonez RN - 12/19/2022 9:00 AM CDT Esther presents for weekly injection of b12 for diagnosis of b12 deficiency per order of Sherly dated 11/19/22. Patient tolerated injection well without incident. See Medication Administration Record (MAR) activity for details. documented in this encounter Plan of Treatment Upcoming Encounters Date Type Department Care Team (Late st Contact Info) Description 04/28/2024 10:00 AM SCAN COORDINATOR [facility]ointment [facility] Cardiology Stress [address] [place] [address] Karen Andino APRN, SALON STYLIST [address] [place] [address] Discharge Disposition: Discharged to home or Selfcare 06/02/2024 10:00 AM SCAN COORDINATOR Office Visit [facility] [address] [place] [address] Kelin Castle, PAC [address] [place] [address] documented as of this encounter Visit Diagnoses Diagnosis B12 deficiency- Primary Other B-complex deficiencies documented in this encounter [...] documented as of this encounter Care Teams Tire Care Manager Relationship Specialty Start Date End Date Kj Merlos MD [address] [place] [address] PCP - General Family Medicine 04/09/21 documented as of this encounter
--- OUTSIDE RECORDS SUMMARY | 2024-04-17 13:51 | XMS_ITS | Encounter Summary ---
Author Organization [facility] Address [address] [place] [address] Phone Care Team Providers Care Powder Coat Painter Name Role Phone Kj Merlos MD Primary Care Provider [phone] Tatiana Logan APRN, CNP Unavailable Reason for Referral * Radiology Services (Routine) - Closed Specialty Diagnoses / Procedures Referred By Ariana t Referred To Contact Radiology Diagnoses Diarrhea, unspecified type Abdominal cramping RUQ pain Procedures US ABDOMEN COMPLETE Tatiana Logan APRN, SUZY [address] [place] [address] Phone: tel: fax: Referral ID Status Reason Start Date Expiration Date Visits Re quested Visits Authorized [id number] Closed 01/29/2024 1 1 Reason for Visit * Reason Comments New Patient Abdominal Pain Diarrhea * Consult, Test & Initiate Treatment (Routine) - Closed Specialty Diagnoses / Procedures Referred By Contrebecca t Referred To Contact Diagnoses Diarrhea, unspecified type Abdominal cramping Kelin Castle PAC [address] [place] [address] Phone: tel: fax: [facility] Medical Group - Gastroenterology - [place] [address] [place] [address] Phone: tel: fax: Referral ID Status Reason Start Date Expiration Date Visits Re quested Visits Authorized [id number] Closed 01/15/2024 1 1 Encounter Details Date Type Department Care Team (Latest Contact Info) Description 01/29/2024 1:00 PM CDT Office Visit [facility] - [place] [address] [place] [address] Tatiana Logan APRN, [employer] [address] [place] [address] Gastroesophageal reflux disease, unspecified whether esophagitis present [...] = 0.6 oz pur e alcohol) Rare [facility] Utilities Answer Date Recorded In the past 12 months has [employer], gas, oil, or water [employer] threatened to shut off services in your [...] often do you attend chur ch or spiritism services? Patient declined 01/15/2024 Do you belong [...] Total Score - Questions 1-9 8 06/2023 [facility] - Occupational Stress [...] place to sleep or slept in a intermediate (including now)? 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 file Not on file documented as of this encounter Last Filed Vital Signs Vital Sign Reading Time Taken Comments Blood Pressure 142/88 01/29/2024 1:04 PM CDT Pulse 78 01/29/2024 1:04 PM CDT Temperature 36.2 ??C (97.1 ??F) 01/29/2024 1:04 PM CD T Respiratory Rate 16 01/29/2024 1:04 PM CDT Oxygen Saturation 98% 01/29/2024 1:04 PM CDT Inhaled Oxygen Concentration - - Weight 90.7 kg (200 lb) 01/29/2024 1:04 PM CDT Height 154.9 cm (5' 1 ) 01/29/2024 1:04 PM CDT Body Mass Index 37.79 01/29/2024 1:04 PM CDT documented in this encounter Progress Notes * Tatiana Logan APRN, [employer] - 01/29/2024 1:00 PM CDT SAPG GASTRO [facility] - [facility]OLOG[facility] - [place] [address] [facility] [address] Dept: [phone] Dept Loc: [phone] Loc Patient: Esther Day : 1990 Sex: female Medical Decision Making: Assessment & Plan Diagnoses and all orders for this visit: Gastroesophageal reflux disease, unspecified whether esophagitis present - omeprazole (PriLOSEC) 40 MG CAPSULE DELAYED RELEASE; Take 1 Capsule by mouth daily. Diarrhea, unspecified type - GASTROENTEROLOGY REFERRAL - dicyclomine (BENTYL) 20 MG Tablet; Take 1 Tablet by mouth every 6 hours as needed (abdominal cramping/diarrhea). - US ABDOMEN COMPLETE; Future Abdominal cramping - GASTROENTEROLOGY REFERRAL - dicyclomine (BENTYL) 20 MG Tablet; Take 1 Tablet by mouth every 6 hours as needed (abdominal cramping/diarrhea). - US ABDOMEN COMPLETE; Future RUQ pain - US ABDOMEN COMPLETE; Future Here today as a new patient She has a longstanding history of GERD and did have a fundoplication when she was 11 years old. Also has had IBS for quite a few years. Recently was having issues with some abdominal cramping and diarrhea. Worse after eating at times. She was started on dicyclomine and this has helped with her symptoms. We will have her continue this medication. Refill was sent to her pharmacy. We will also restart her on omeprazole as she was starting to have increase in acid reflux. Plan for ultrasound to further evaluate the gallbladder. If ultrasound is normal then HIDA scan will be recommended. We will likely have to do an EGD if the acid reflux is not controlled with the omeprazole. We will plan for 6 week follow-up for re-evaluation of symptoms and medication. Subjective Subjective: HPI: Esther Day is a 33 y.o. female presents for New Patient, Abdominal Pain, and Diarrhea Esther Day is here today with referral for diarrhea and abdominal cramping. GI concerns today include GERD, nausea, stomach cramping, diarrhea. History is obtained from patient and chart review. Patient reports that she has had a longstanding history of GERD since she was a child. She did undergo fundoplication when she was 11 years old. She has been often on PPIs throughout the years. She states she was on omeprazole prior to this last that she had. She currently is not taking anything for acid reflux. She also has been having stomach cramping and diarrhea. Can be worsened after eating. Reports having a dull right-sided pain. No blood in his stools. Some nausea but no vomiting. Recent ER/hospital related to this issue: none Recent Labs: none Recent imaging relevant to this issue: none Current medications used for GI issues include dicyclomine 20 mg every 6 hours. Prior GI procedures: none. Past abdominal surgeries include: Umbilical hernia, appendectomy, fundoplication. Other health issues are as noted in the chart. Problem List: Patient Active Problem List Diagnosis Chronic bilateral low back pain with right-sided [...] Umbilical hernia without obstruction and without gangrene Past Medical History: Past Medical History Positives Diagnosis Date Abscess of face Multiple -face and leg Acid reflux Allergic rhinitis Anxiety Chronic back pain GERD (gastroesophageal reflux disease) Headache History of seizure IBS (irritable bowel syndrome) Migraines Past Surgical History: Past Surgical History: Procedure Laterality Date CARPAL TUNNEL RELEASE Right 04/29/2018 Procedure: CARPAL TUNNEL RELEASE RIGHT; Surgeon: Trent Blanton MD; Location: [facility]; Service: Orthopaedic EXPLORATORY OF ABDOMEN 2001 Endo fundal plication LAPAROSCOPIC APPENDECTOMY N/A 02/21/2021 Procedure: LAPAROSCOPIC APPENDECTOMY; Surgeon: Rm Butler MD; Location: [facility]; Service: General LIPOMA RESECTION Left 07/04/2017 Procedure: EXCISION LIPOMA LEFT UPPER BACK; Surgeon: Gareth Em MD; Location: [facility]; Service: General LIPOMA RESECTION Bilateral 02/18/2019 Procedure: EXCISION LIPOMAS LOWER BACK TIMES TWO; Surgeon: Escobar Goodman MD; Location: [facility]; Service: General MYRINGOTOMY Bilateral TONSILLECTOMY UMBILICAL HERNIA REPAIR N/A 02/21/2021 Procedure: LAPAROSCOPIC UMBILICAL HERNIA REPAIR- NO MESH; Surgeon: Rm Butler MD; Location: [facility]; Service: General WRIST GANGLION EXCISION Right 04/29/2018 Procedure: GANGLION CYST EXCISION REMOVAL RIGHT WRIST; Surgeon: Trent Blanton MD; Location: [facility]; Service: Orthopaedic Family History: Family History Problem Relation Age of Onset Cancer Maternal Grandmother Liver Cancer Maternal Grandmother Skin Cancer Maternal Grandmother No Known Problems Maternal Grandfather Anxiety disorder Mother No Known Problems Daughter No Known Problems Daughter Seizures Maternal Uncle Epilepsy Seizures Maternal Uncle Epilepsy Social History: Social History Socioeconomic History Marital status: Number of children: 2 Highest education level: 10th grade 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 Tobacco Use Smoking status: Light Smoker [...] No Seat Belt Yes Self-Exams Yes Social Determinants of Health Financial Resource Needs: Patient Declined [...] 120 min Stress: Stress Concern Present (01/15/2024) [facility] - Occupational Stress Questionnaire Feeling of Stress : To some extent Social Integration: Unknown (01/15/2024) Social Connection and Isolation Panel [NHANES] Frequency of Communication with Friends and Family: More than three times a week Frequency of Social Gatherings with Friends and Family: More than three times a week Attends Sabianism Services: Patient declined Active Member of Clubs or Organizations: Patient declined Attends Club or Organization Meetings: More than 4 times per year Marital Status: Intimate Partner Violence: Not At Risk (01/15/2024) Humiliation, Afraid, Rape, and Kick questionnaire Fear of Current or Ex-Partner: No Emotionally Abused: No Physically Abused: No Sexually Abused: No Housing Stability: Unknown (01/15/2024) Housing Stability Vital Sign Unable to Pay for Housing in the Last Year: Patient declined Medications: Current Outpatient Medications: dicyclomine (BENTYL) 20 MG Tablet omeprazole (PriLOSEC) 40 MG CAPSULE DELAYED RELEASE triamcinolone (KENALOG) 0.1 % Cream venlafaxine (EFFEXOR-XR) 150 MG CAPSULE SR 24 HR Zafemy 150-35 MCG/24HR PATCH WEEKLY Allergies: Allergies Allergen Reactions Augmentin [Amoxicillin-Pot Clavulanate] Rash and Itching Ceclor [Cefaclor] Hives and Rash Codeine Hives and Itching Review of systems was negative, except as documented in HPI. Objective Objective: BP 142/88 Pulse 78 Temp 97.1 ??F (36.2 ??C) Resp 16 Ht 5' 1 (1.549 m) Wt 200 lb (90.7 kg) LMP 12/26/2023 (Approximate) SpO2 98% BMI 37.79 kg/m?? General appearance: alert, no distress, cooperative, appears stated age Abdomen: soft, non-tender. Bowel sounds normal. No masses, no organomegaly. Old surgical scar in epigastric region from fundoplication when she was 11. Neurologic: Alert and oriented X 3. Labs: Lab Results Component Value Date WBC 12.58 (H) 06/24/2023 HEMOGLOBIN 12.1 06/24/2023 HEMATOCRIT 34.9 01/15/2017 PLATELETCNT 395 06/24/2023 MCV 82.2 06/24/2023 No results found for: INR Lab Results Component Value Date SODIUM 139 06/24/2023 POTASSIUM 3.7 06/24/2023 CHLORIDE 108 (H) 06/24/2023 CO2VEN 21 (L) 06/24/2023 ANIONGAP 13.7 06/24/2023 GLUCOSE 94 06/24/2023 BUN 6 06/24/2023 CREATININE 0.69 06/24/2023 BCRATIO8 9 (L) 06/24/2023 TOTALPROTEIN 7.0 06/24/2023 ALBUMIN 3.9 06/24/2023 CALCIUM 9.1 06/24/2023 TBIL 0.4 06/24/2023 SGOTAST 18 06/24/2023 SGPTALT 15 06/24/2023 ALKALINEPHO 94 06/24/2023 GFRNA >60 06/24/2023 GFRA >60 06/24/2023 No results found. Review of diagnostic tests: Carlos Logan APRN, SUZY This note was transcribed using [employer] speech recognition software. As a result, there may be unintended grammar and spelling errors. documented in this encounter Plan of Treatment Upcoming Encounters Date Type Department Care Team (Late st Contact Info) Description 04/28/2024 10:00 AM TURNER OFF Appointment [facility] Cardiology Stress [address] [place] [address] Karen Andino APRN, [employer] [address] [place] [address] Discharge Disposition: Discharged to home or Selfcare 06/02/2024 10:00 AM TURNER OFF [facility] Visit [facility] #2 [place] [address] Kelin Castle, PAC [address] [place] [address] documented as of this encounter Results * US ABDOMEN COMPLETE (03/20/2024 10:44 AM TURNER OFF) Anatomical Region Laterality Modality Abdomen N/A Ultrasound 03/25/2024 6:41 AM TURNER OFF Impressions 03/25/2024 6:44 AM TURNER OFF IMPRESSION: Cholelithiasis with no secondary features of acute cholecystitis. Pancreas predominantly obscured due to shadowing bowel gas. ?? Narrative 03/25/2024 6:44 AM TURNER OFF EXAM DESCRIPTION: ?? US ABDOMEN COMPLETE REASON [...] AM T: ??03/25/2024 6:41 AM Report ID: [id number] Reading Location: ??[id number] Procedure Note Marlon Massey Jr., MD - [...] Marlon Massey M.D. CH: YANELIS Report ID: [id number] Reading Location: [id number] IMPRESSION: Cholelithiasis with no secondary features of acute cholecystitis. Pancreas predominantly obscured due to shadowing bowel gas. Tatiana Logan APRN, CNP [facility] US ORDERABLES Final Result documented in this encounter Visit Diagnoses Diagnosis Gastroesophageal reflux disease, unspecified whether esophagitis present- Primary Diarrhea, unspecified type Abdominal cramping Abdominal pain, unspecified site RUQ pain Abdominal pain, right upper quadrant Diarrhea, unspecified type Abdominal cramping Abdominal pain, unspecified site RUQ pain Abdominal pain, right upper quadrant documented in this encounter Additional Health Concerns Assessment Noted Time PHQ-9 Depression Total Score: 8 01/15/20 24 4:34 PM CDT documented as of this encounter Care Teams Powder Coat Painter Relationship Specialty Start Date End Date Kj Merlos MD #[address] [address] PCP - General Family Medicine 04/09/21 Tatiana Logan APRN, CNP [address] [place] [address] Nurse Practitioner Advanced Practice Nurse 01/29/24 documented as of this encounter
--- OUTSIDE RECORDS SUMMARY | 2024-04-17 13:51 | XMS_ITS | Encounter Summary ---
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 Question Answer Date of Assessment Author Feeling nervous, anxious, or on edge 2 06/23/2023 3:00 PM CDT Debra Choi APRN, CNP Not being able to stop or control [...] NEIL-7 Total Score 10 06/23/2023 3:00 PM NAVEEDT Ligia Choi APRN, CNP documented as of this encounter Plan of Treatment Upcoming Encounters Date Type Department Care Team (Late st Contact Info) Description 04/28/2024 10:00 AM RELINER [facility] Card[facility] Stress [address] [place] [address] Karen Andino APRN, CNP [address] [place] [address] Discharge Disposition: Discharged to home or Selfcare 06/02/2024 10:00 AM RELINER [facility] #2 [place] [address] Kelin Castle, SARABJIT [address] [place] [address] documented as of this encounter Visit Diagnoses Not on filedocumented in this encounter Additional Health Concerns Assessment Noted Time PHQ-9 Depression Total Score: 10 024 3:18 PM CDT documented as of this encounter Care Teams Aesthetician Relationship Specialty Start Date End Date Kj Merlos MD #[address] [address] PCP - General Family Medicine 04/09/21 documented as of this encounter
--- OUTSIDE RECORDS SUMMARY | 2024-04-17 13:51 | XMS_ITS | Encounter Summary ---
Author Organization [facility] Address [address] [place] [address] Phone Care Team Providers Care Shellfish Processing Laborer Name Role Phone Kj Merlos MD Primary Care Provider [phone] Tatiana Logan APRN, HEADER BOSS Unavailable Karen Andino APRN, HEADER BOSS Unavailable Reason for Visit * Reason Comments Medication Refill Encounter Details Date Type Department Care Team (Late st Contact Info) Description 12/16/2022 Refill [facility] [address]2 [place] [address] Kj Merlos MD #[address] [address] Medication Refill Social History Tobacco Use Types Packs/Day Years Used Date Smoking Tobacco: Light Smoker Cigarettes Smokeless Tobacco: Never Comments:1-2 cigarettes a da y Alcohol Use Standard Drinks/Week Comments Yes 0 (1 standard drink = 0.6 oz pur e alcohol) Rare PHQ-2 Answer Date Recorded Total Score - Questions 1-9 0 06/2022 Education Answer Date Recorded What is the highest level of school you have completed or the highest degree you have received? 10th grade 12/29/2020 Sexually Active Control Partners Comments Yes Male Comments No Sex and Gender Information Value Date Recorded Sex Assigned at Female 11/25/2022 4:06 PM CDT Legal Sex Female 2:47 AM PASTEURIZING MACHINE OPERATOR Gender Identity Female 11/25/2022 4:06 [...] AM CDT documented as of this encounter Miscellaneous Notes * Telephone Encounter - Bree Del Real RN - 12/17/2022 10:02 AM CDT Medication failed the protocol, provider to review and approve the medication order if appropriate. Requested Prescriptions Pending Prescriptions Disp Refills triamcinolone (KENALOG) 0.1 % Cream [Pharmacy Med Name: Triamcinolone Acetonide 0.1 % External Cream] 80 g 0 Sig: APPLY CREAM EXTERNALLY TWICE DAILY TO ARMS Not Delegated - Topical Steroids Protocol Failed - 12/16/2022 9:12 AM Failed - This refill cannot be delegated Passed - Visit with relevant provider in past 12 months or upcoming 90 days Recent Visits Date Type Provider Dept 11/14/22 Office Visit Ligia Choi APRN, SUZY Guerrayue Eldridge 04/30/22 Office Visit Kj Merlos MD [facility] [place] Showing recent visits within past 365 days and meeting all other requirements Future Appointments Date Type Provider Dept 12/19/22 Appointment Keshawn, [place] Nurse Charlieyue Eldridge Showing future appointments within next 90 days and meeting all other requirements documented in this encounter Plan of Treatment Upcoming Encounters Date Type Department Care Team (Late st Contact Info) Description 04/28/2024 10:00 AM PASTEURIZING MACHINE OPERATOR Appointment [facility] Cardiology Stress [address] [place] [id number] Karen Andino APRN, HEADER BOSS [address] [place] [address] Discharge Disposition: Discharged to home or Selfcare 06/02/2024 10:00 AM PASTEURIZING MACHINE OPERATOR Office Visit [facility] [address]2 [place] [address] Kelin Castle PAC [address] [place] [address] documented as of this encounter Visit Diagnoses Not on filedocumented in this encounter Additional Health Concerns Assessment Noted Time PHQ-9 Depression Total Score: 0 11/15/19 23 2:00 PM CDT documented as of this encounter Care Teams Shellfish Processing Laborer Relationship Specialty Start Date End Date Kj Merlos MD #[address] [address] PCP - General Family Medicine 04/09/21 Tatiana Logan APRN, HEADER BOSS [address] [place] [address] Nurse Practitioner Advanced Practice Nurse 01/29/24 Karen Andino APRN, HEADER BOSS [address] [place] [address] Nurse Practitioner Cardiology 03/29/24 documented as of this encounter
--- OUTSIDE RECORDS SUMMARY | 2024-04-17 13:52 | XMS_ITS | Encounter Summary ---
Author Organization [facility] Address [address] [place] [address] Phone Care Team Providers Care Bunch Trimmer Mold Name Role Phone Paco Reagan APRN, MATERIAL ASSISTANT Unavailable Kj Merlos MD Primary Care Provider [phone] Reason for Visit * Reason Comments Preventive Care Annual exam, lab res ults Encounter Details Date Type Department Care Team (Late st Contact Info) Description 04/30/2022 1:30 PM COMMERCIAL SUBCONTRACTOR Office Visit [facility] [address]2 [place] [address] Kj Merlos MD [address] [address] Physical exam, annual (Primary Dx); Morning sickness Discharge Disposition: Discharged to home or Selfcare Social History Tobacco Use Types Packs/Day Years Used Date Smoking Tobacco: Light Smoker Cigarettes Smokeless Tobacco: Never Tobacco Cessation:Ready to Q uit: No; Counseling Given: Yes Comments:1-2 cigarettes a day Alcohol Use Standard Drinks/Week Comments Yes 0 (1 standard drink = 0.6 oz pur e alcohol) Rare PHQ-2 Answer Date Recorded Total Score - Questions 1-9 1 10/13 Education Answer Date Recorded What is the highest level of school you have completed or the highest degree you have received? 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 No / Unsure 04/30/2022 12:50 PM COMMERCIAL SUBCONTRACTOR documented as of this encounter Last Filed Vital Signs Vital Sign Reading Time Taken Comments Blood Pressure 126/72 04/30/2022 1:02 PM COMMERCIAL SUBCONTRACTOR Pulse 77 04/30/2022 1:02 PM COMMERCIAL SUBCONTRACTOR Temperature 36.4 ??C (97.5 ??F) 04/30/2022 1:02 PM CS T Respiratory Rate 14 04/30/2022 1:02 PM COMMERCIAL SUBCONTRACTOR Oxygen Saturation 97% 04/30/2022 1:02 PM COMMERCIAL SUBCONTRACTOR Inhaled Oxygen Concentration - - Weight 95.2 kg (209 lb 14.4 oz) 04/30/2022 1:02 PM COMMERCIAL SUBCONTRACTOR Height 152.4 cm (5') 04/30/2022 1:02 PM COMMERCIAL SUBCONTRACTOR Body Mass Index 40.99 04/30/2022 1:02 PM COMMERCIAL SUBCONTRACTOR documented in this encounter Progress Notes * Paige Duggan - 04/30/2022 1:30 PM CST Esther Day, 31 y.o., female is here for Preventive Care (Annual exam, lab results) Medication Refills: Patient reports/denies need for medication refills. Orders Pended: no Requested Prescriptions Pending Prescriptions Disp Refills ??? ondansetron (ZOFRAN) 4 MG Tablet 15 Tablet 0 Sig: Take 1 Tablet by mouth every 8 hours as needed for Nausea - 1st line. ??? ibuprofen (MOTRIN) 600 MG Tablet 30 Tablet Home Medications Medication Sig Start Date End Date Taking? Authorizing Provider ibuprofen (MOTRIN) 600 MG Tablet 02/07/22 Provider, MD Sunita ondansetron (ZOFRAN) 4 MG Tablet Take 1 Tablet by mouth every 8 hours as needed for Nausea - 1st line. 06/06/21 Kj Merlos MD triamcinolone (KENALOG) 0.1 % Cream APPLY TOPICALLY TWICE A DAY FOR 7 DAYS Patient not taking: Reported on 04/30/2022 10/26/21 Provider, MD Sunita There are no discontinued medications. I have reviewed the home medication list with the patient and have reconciled discrepancies. The list is accurate to the best of my knowledge. Smoking Status: Social History Tobacco Use ??? Smoking status: Light Smoker Years: 15.00 Types: Cigarettes ??? Smokeless tobacco: Never ??? Tobacco comments: 1-2 cigarettes a day Vaping Use ??? Vaping Use: Never used Substance Use Topics ??? Alcohol use: Yes Comment: Rare ??? Drug use: Yes Types: Marijuana Comment: sleep and anxiety and pain Smoking Cessation Counseling Given: yes Health Care Maintenance: Health Maintenance Due Topic Date Due ??? Hepatitis B Immunization (1 of 3 - 3-dose series) Never done ??? SARS-COV-2 Immunization (1) Never done ??? Cervical Cancer Screening (CCS) Never done ??? Pneumococcal Immunization Combined (2 - PCV) 12/29/2021 Orders Pended: no The following BPA's have been addressed with the patient today: Mammogram, Pap, Smoking, Depression, Fall Risk, Nutrition, Advanced Care Planning and HCC ERCIAL SUBCONTRACTOR * Kj Merlos MD - 04/30/2022 1:30 PM CST SUBJECTIVE: Esther Day is here to follow-up/ evaluation on her 1. Physical exam, annual 2. Morning sickness Esther Day says she has been feeling fine. Past Medical History Positives Diagnosis Date ??? [...] RELEASE RIGHT; Surgeon: Trent Blanton MD; Location: [facility]; Service: Orthopaedic ??? EXPLORATORY OF ABDOMEN 2002 Endo fundal plication ??? LAPAROSCOPIC APPENDECTOMY N/A 02/21/2021 Procedure: LAPAROSCOPIC APPENDECTOMY; Surgeon: Rm Butler MD; Location: [facility]; Service: General ??? LIPOMA RESECTION Left 07/04/2017 Procedure: EXCISION LIPOMA LEFT UPPER BACK; Surgeon: Gareth Em MD; Location: [facility]; Service: General ??? LIPOMA RESECTION Bilateral 02/18/2019 Procedure: EXCISION LIPOMAS LOWER BACK TIMES TWO; Surgeon: Escobar Goodman MD; Location: [facility]; Service: General ??? MYRINGOTOMY Bilateral ??? TONSILLECTOMY ??? UMBILICAL HERNIA REPAIR N/A 02/21/2021 Procedure: LAPAROSCOPIC UMBILICAL HERNIA REPAIR- NO MESH; Surgeon: Rm Butler MD; Location: [facility]; Service: General ??? WRIST GANGLION EXCISION Right 04/29/2018 Procedure: GANGLION CYST EXCISION REMOVAL RIGHT WRIST; Surgeon: Trent Blanton MD; Location: [facility]; Service: Orthopaedic Social History Tobacco Use ??? Smoking status: Light Smoker Years: 15.00 Types: Cigarettes ??? Smokeless tobacco: Never ??? Tobacco comments: 1-2 cigarettes a day Substance Use Topics ??? Alcohol use: Yes Comment: Rare Exercise: no ROS: She denies chest pain, dyspnea, claudication, visual symptoms. She denies symptoms of transient ischemic attacks. No lightheadedness, palpitations, or syncope. No edema. She is compliant in taking her medication and denies medication side effects. Left third digit. Had blood blister. One month. Keeps popping open Gave in January 2022. Gest dm. Fu testing normal On control Outpatient Medications Marked as Taking for the 04/30/22 encounter (Office Visit) with Kj Merlos MD Medication Sig Dispense Refill ??? ibuprofen (MOTRIN) 600 MG Tablet Take 1 Tablet by mouth every 8 hours as needed for Moderate ormore severe pain. 60 Tablet 3 ??? ondansetron (ZOFRAN) 4 MG Tablet Take 1 Tablet by mouth every 8 hours as needed for Nausea - 1st line. 15 Tablet 0 Allergies Allergen Reactions ??? Augmentin [Amoxicillin-Pot Clavulanate] Rash and Itching ??? Ceclor [Cefaclor] Hives and Rash ??? Codeine Hives and Itching LABS Lab Results Component Value Date WBC 8.72 04/01/2022 HEMOGLOBIN 10.9 (L) 04/01/2022 HEMATOCRIT 35.5 (L) 04/01/2022 PLATELETCNT 422 04/01/2022 CHOLESTEROL 250 (H) 10/25/2020 TRIGLYCRIDES 395 (H) 10/25/2020 HDLCHOLESTE 35.6 (L) 10/25/2020 LDL 135 (H) 10/25/2020 [id number] 336 10/25/2020 FOLAT 11.2 10/25/2020 ESR 21 (H) 04/05/2016 Lab Results Component Value Date SODIUM 138 04/01/2022 POTASSIUM 3.7 04/01/2022 CHLORIDE 101 04/01/2022 CO2VEN 27 04/01/2022 ANIONGAP 13.7 04/01/2022 GLUCOSE 88 04/01/2022 BUN 8 04/01/2022 CREATININE 0.70 04/01/2022 BCRATIO8 11 (L) 04/01/2022 TOTALPROTEIN 7.2 04/01/2022 ALBUMIN 4.7 04/01/2022 CALCIUM 9.9 04/01/2022 TBIL 0.4 04/01/2022 SGOTAST 20 04/01/2022 SGPTALT 22 04/01/2022 ALKALINEPHO 91 04/01/2022 GFRNA >60 04/01/2022 GFRA >60 04/01/2022 VTMD 28 (L) 04/01/2022 TSH 1.780 10/25/2020 OBJECTIVE Well-nourished, well-developed, pleasant, cooperative 31 y.o. female in no acute distress. Vitals: 04/30/22 1302 BP: 126/72 BP Location: Left Arm BP Position: Sitting BP Cuff Size: Large Pulse: 77 Resp: 14 Temp: 97.5 ??F (36.4 ??C) TempSrc: Temporal SpO2: 97% Weight: 209 lb 14.4 oz (95.2 kg) Height: 5' (1.524 m) Body mass index is 40.99 kg/m??. BP Readings from Last 3 Encounters: 04/30/22 126/72 11/02/21 124/64 04/09/21 128/68 Wt Readings from Last 3 Encounters: 04/30/22 209 lb 14.4 oz (95.2 kg) 11/02/21 213 lb 12.8 oz (97 kg) 04/09/21 219 lb (99.3 kg) SKIN: Warm and dry. EYES: Fundi appear benign. Sclerae are clear. NECK: Supple. No thyromegaly or adenopathy, no bruits. BACK: No spine or costovertebral angle tenderness. LUNGS: Clear to auscultation and percussion. HEART:normal rate, regular rhythm, normal S1, S2, no murmurs, rubs, clicks or gallops. ABDOMEN: Bowel sounds are active. No masses. No organomegaly, no tenderness. No bruits. EXTREMITIES: No edema. Red papule 2 mm tip of left third finger Umbilical Mass. Reducible. Midline upepr abd surg scar Tm clear Obese control patch on ASSESSMENT AND PLAN Diagnoses and all orders for this visit: Physical exam, annual Morning sickness - ondansetron (ZOFRAN) 4 MG Tablet; Take 1 Tablet by mouth every 8 hours as needed for Nausea - 1stline. Other orders - Discontinue: ibuprofen (MOTRIN) 600 MG Tablet - ibuprofen (MOTRIN) 600 MG Tablet; Take 1 Tablet by mouth every 8 hours as needed for Moderate or more severe pain. Medications Discontinued During This Encounter Medication Reason ??? ondansetron (ZOFRAN) 4 MG Tablet Reorder ??? ibuprofen (MOTRIN) 600 MG Tablet Reorder Return in about 1 year (around 04/30/2023) for 30 minutes . Continue current medication After visit summary discussed with patient. Documentation for this visit on 04/30/2022 was completed using a template. I have seen and examined the patient. Everything documented was personally performed at this visit with the necessary additions, deletions and changes made as appropriate. Gest dm: Fu labs fine. Monitor. Ov one year. Check sugars. Obbesity: Urged weight loss S/p inf shot Guaze for lesion on lesion. If no better in next 3-4 weeks, call or make ov. Call sooner if gets worse. Urged covid shot booster Uses nsaid for intermitten back pain ERCIAL SUBCONTRACTOR documented in this encounter Plan of Treatment Upcoming Encounters Date Type Department Care Team (Late st Contact Info) Description 04/28/2024 10:00 AM COMMERCIAL SUBCONTRACTOR Appointment [facility] Cardiology Stress [address] [place] [address] Karen Andino APRN, MATERIAL ASSISTANT [address] [place] [address] Discharge Disposition: Discharged to home or Selfcare 06/02/2024 10:00 AM COMMERCIAL SUBCONTRACTOR Office Visit [facility] - [facility] Medicine - [place] [address] [place] [address] Klein Castle, SARABJIT [address] [place] [address] documented as of this encounter Visit Diagnoses Diagnosis Physical exam, annual (Adult)- Primary Routine general medical examination at a health care facility Morning sickness Mild hyperemesis gravidarum, unspecified as to episode of care documented in this encounter Additional Health Concerns Assessment Noted Time PHQ-9 Depression Total Score: 1 11/03/19 22 10:00 AM CDT documented as of this encounter Care Teams Bunch Trimmer Mold Relationship Specialty Start Date End Date Kj Merlos MD #[address] [address] PCP - General Family Medicine 04/09/21 Paco Reagan APRN, MATERIAL ASSISTANT #[address] [address] Nurse Practitioner Advanced Practice Nurse 10/24/20 documented as of this encounter
--- OUTSIDE RECORDS SUMMARY | 2024-04-17 13:52 | XMS_ITS | Encounter Summary ---
Author Organization [facility] Care Team Providers Care Contract Loader Name Role Phone Paco Reagan APRN, SUPERVISING EDITOR TRAILER Unavailable Kj Merlos MD Primary Care Provider [phone] Encounter Details Date Type Department Care Team (Latest Contact Info) Description 08/20/2021 Travel Social History Tobacco Use Types Packs/Day Years Used Date Smoking Tobacco: Light Smoker Cigarettes Smokeless Tobacco: Never Comments:1-2 cigarettes a da y Alcohol Use Standard Drinks/Week Comments Yes 0 (1 standard drink = 0.6 oz pur e alcohol) Rare Education Answer Date Recorded What is the highest level of school you have completed or the highest degree you have received? 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 No / Unsure 08/20/2021 6:38 AM CDT documented as of this encounter Plan of Treatment Upcoming Encounters Date Type Department Care Team (Late st Contact Info) Description 04/28/2024 10:00 AM AUTOMOTIVE FUEL INJECTION SERVICER Appointment [facility] Cardiology Stress [address] [place] [address] Karen Andino, WALLPAPER PRINTER HELPER, SUPERVISING EDITOR TRAILER [address] [place] [address] Discharge Disposition: Discharged to home or Selfcare 06/02/2024 10:00 AM AUTOMOTIVE FUEL INJECTION SERVICER Office Visit [facility] - [facility] #2 [place] [address] Kelin Castle, [facility] #2 [place] [address] documented as of this encounter Visit Diagnoses Not on filedocumented in this encounter Care Teams Contract Loader Relationship Specialty Start Date End Date Kj Merlos MD #[address] [address] PCP - General Family Medicine 04/09/21 Paco Reagan, WALLPAPER PRINTER HELPER, SUPERVISING EDITOR TRAILER #[address] [address] Nurse Practitioner Advanced Practice Nurse 10/24/20 documented as of this encounter
--- OUTSIDE RECORDS SUMMARY | 2024-04-17 13:52 | XMS_ITS | Encounter Summary ---
Author Organization [facility] Address [address] [place] [address] Phone Care Team Providers Care Child Welfare Caseworker Name Role Phone Kj Merlos MD Primary Care Provider [phone] Reason for Visit * Reason Onset Date Comments Results 11/15/2022 Encounter Details Date Type Department Care Team (Late st Contact Info) Description 11/15/2022 Telephone [facility] [place] [address] [place] [address] Kj Merlos MD #[address] [address] Results Social History Tobacco Use Types Packs/Day [...] PM CDT Legal Sex Female 2:47 AM COAL HANDLER Gender Identity Female 11/25/2022 4:06 PM CDT Sexual Orientation Not on file 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 No / Unsure 11/14/2022 2:42 PM CDT documented as of this encounter Miscellaneous Notes * Telephone Encounter - Francie Leon RN - 11/15/2022 12:22 PM CDT Called and spoke with patient to let her know, she stated that she understood. * Telephone Encounter - Ligia Choi APRN, CNP - 11/15/2022 12:02 PM CDT 6 doses of IM b12. Schedule nurse visit. * PatientPass Patient Instructions - Cathy Johnson RN - 11/15/2022 9:12 AM CDT Patient Education Table of Contents Iron-Rich Diet To view videos and all your education online visit, [email or web address] or scan this QR code with your smartphone. Access to this content will in one year. Iron-Rich Diet Iron is a mineral that helps your body produce hemoglobin. Hemoglobin is a protein in red blood cells that carries oxygen to your body's tissues. Eating too little iron may cause you to feel weak andtired, and it can increase your risk of infection. Iron is naturally found in many foods, and many foods have iron added to them (are iron-fortified). You may need to follow an iron-rich diet if you do not have enough iron in your body due to certainmedical conditions. The amount of iron that you need each day depends on your age, your sex, and any medical conditions you have. Follow instructions from your health care provider or a dietitian about how much iron you should eat each day. What are tips for following this plan? Reading food labels Check food labels to see how many milligrams (mg) of iron are in each serving. Cooking Cook foods in pots and pans that are made from iron. Take these steps to make it easier for your body to absorb iron from certain foods: Soak beans overnight before cooking. Soak whole grains overnight and drain them before using. Ferment flours before baking, such as by using yeast in bread dough. Meal planning When you eat foods that contain iron, you should eat them with foods that are high in vitamin C. These include oranges, peppers, tomatoes, potatoes, and mangoes. Vitamin C helps your body absorb iron. Certain foods and drinks prevent your body from absorbing iron properly. Avoid eating these foods in the same meal as iron-rich foods or with iron supplements. These foods include: Coffee, black tea, and red wine. Milk, dairy products, and foods that are high in calcium. Beans and soybeans. Whole grains. General information Take iron supplements only as told by your health care provider. An overdose of iron can be life-threatening. If you were prescribed iron supplements, take them with orange juice or a vitamin C supplement. When you eat iron-fortified foods or take an iron supplement, you should also eat foods that naturally contain iron, such as meat, poultry, and fish. Eating naturally iron-rich foods helps your body absorb the iron that is added to other foods or contained in a supplement. Iron from animal sources is better absorbed than iron from plant sources. What foods should I eat? Fruits Prunes. Raisins. Eat fruits high in vitamin C, such as oranges, grapefruits, and strawberries, with iron-rich foods. Vegetables Spinach (cooked). Green peas. Broccoli. Fermented vegetables. Eat vegetables high in vitamin C, such as leafy greens, potatoes, padilla peppers, and tomatoes, with iron-rich foods. Grains Iron-fortified breakfast cereal. Iron-fortified whole-wheat bread. Enriched rice. Sprouted grains. Meats and other proteins Beef liver. Beef. Evarts. Chicken. Oysters. Shrimp. Tuna. Sardines. Chickpeas. Nuts. Tofu. Pumpkin seeds. Beverages Tomato juice. Fresh orange juice. Prune juice. Hibiscus tea. Iron- fortified instant breakfast shakes. Sweets and desserts Blackstrap molasses. Seasonings and condiments Tahini. Fermented soy sauce. Other foods Wheat germ. The items listed above may not be a complete list of recommended foods and beverages. Contact a dietitian for more information. What foods should I limit? These are foods that should be limited while eating iron-rich foods as they can reduce the absorption of iron in your body. Grains Whole grains. Bran cereal. Bran flour. Meats and other proteins Soybeans. Products made from soy protein. Black beans. Lentils. Mung beans. Split peas. Dairy Milk. Cream. Cheese. Yogurt. Cottage cheese. Beverages Coffee. Black tea. Red wine. Sweets and desserts Jefferson. Chocolate. Ice cream. Seasonings and condiments Basil. Oregano. Large amounts of parsley. The items listed above may not be a complete list of foods and beverages you should limit. Contact a dietitian for more information. Summary Iron is a mineral that helps your body produce hemoglobin. Hemoglobin is a protein in red blood cells that carries oxygen to your body's tissues. Iron is naturally found in many foods, and many foods have iron added to them (are iron-fortified). When you eat foods that contain iron, you should eat them with foods that are high in vitamin C. Vitamin C helps your body absorb iron. Certain foods and drinks prevent your body from absorbing iron properly, such as whole grains and dairy products. You should avoid eating these foods in the same meal as iron-rich foods or with iron supplements. This information is not intended to replace advice given to you by your health care provider. Make sure you discuss any questions you have with your health care provider. Document Released: 11/12/2005 Document Revised: 03/12/2021 Document Reviewed: 03/12/2021 [employer] Patient Education ? 2022 [employer] * Telephone Encounter - Cathy Johnson RN - 11/15/2022 9:07 AM CDT S: Esther is calling for results A: She verbalizes understanding of results Does Ligia have an idea of how many injections will be required? She would like to do the first injection at the office and then if she feels comfortable can do therest at home Her current diet is rich in chicken, with occasional red meat She eats some cashews and peanuts R: Reviewed iron rich diet and sent resources through My Chart on iron- containing foods. Made appointment for injection visit: All Patient Appointments Provider Department Dept Phone 11/19/2022 1:00 PM Chente Liao [facility] [phone] 05/01/2023 1:30 PM Kj Merlos [facility] [phone] She verbalizes understanding of appointment date, time, and location. Please advise on the above questions. Thank you! * Telephone Encounter - Francie Leon RN - 11/15/2022 8:53 AM CDT LVM for patient to call back. PMCP letter was filled out and placed at the test desk trouble locator for fruit picker. * Telephone Encounter - Francie Leon RN - 11/15/2022 8:52 AM CDT ----- Message from Ligia Choi APRN, SHARK BIOLOGIST sent at 11/14/2022 10:21 PM CDT ----- Please call patient. Her anemia is mild, I want her to increase her iron rich foods in her diet. Her B12 is very low and can be a source of fatigue. I recommend she starts B12 injections. Would she like to do this with a nurse visit or at home? documented in this encounter Plan of Treatment Upcoming Encounters Date Type Department Care Team (Late st Contact Info) Description 04/28/2024 10:00 AM COAL HANDLER Appointment [facility] Cardiology Stress [address] [place] [address] Karen Andino APRN, SHARK BIOLOGIST [address]2 [place] [address] Discharge Disposition: Discharged to home or Selfcare 06/02/2024 10:00 AM COAL HANDLER Office Visit [facility] - [facility] [address] [place] [address] Kelin Castle, [facility] [address]2 [place] [address] documented as of this encounter Visit Diagnoses Not on filedocumented in this encounter Additional Health Concerns Assessment Noted Time PHQ-9 Depression Total Score: 0 11/15/19 23 2:00 PM CDT documented as of this encounter Care Teams Child Welfare Caseworker Relationship Specialty Start Date End Date Kj [facility] [address] [address] PCP - General Family Medicine 04/09/21 documented as of this encounter
--- OUTSIDE RECORDS SUMMARY | 2024-04-17 13:52 | XMS_ITS | Encounter Summary ---
Author Organization [facility] Address [address] [place] [address] Phone Care Team Providers Care Moss Bleacher Name Role Phone Kj Merlos MD Primary Care Provider [phone] Encounter Details Date Type Department Care Team (Late st Contact Info) Description 11/14/2022 3:20 PM CDT [facility] [address] [place] [address] Ligia Choi APRN, DRAFTER AUTOMOTIVE DESIGN #[address] [address] Microcytic anemia; Vitamin D deficiency Discharge Disposition: Discharged to [...] PM CDT Legal Sex Female 2:47 AM WELL PULLER Gender Identity Female 11/25/2022 4:06 PM CDT [...] PM CDT documented as of this encounter Functional Status * Question Answer Date of Assessment Author Little interest or pleasure in doing things Not at all 11/14/2022 2:00 PM CDT Paige Duggan Feeling down, depressed, or hopeless Not at all 11/14/2022 2:00 PM CDT Paige Duggan * Over the past 2 weeks, how often have you been bothered by any of the following problems? Question Answer Date of Assessment Author Patient Health Questionnaire-2 Score 0 06/2022 2:00 PM CDT Paige Duggan documented as of this encounter Progress Notes * Ligia Choi APRN, CNP - 11/14/2022 3:20 PM CDT Please call patient. Her anemia is mild, [...] st Contact Info) Description 04/28/2024 10:00 AM WELL PULLER [facility] Stress [address] [place] [phone] Karen Andino APRN, SUZY [address] [place] [phone] Discharge Disposition: Discharged to home or Selfcare 06/02/2024 10:00 AM WELL PULLER Office Visit [facility]2 [place] [phone] Kelin Castle, PAC [address] [place] [address] documented as of this encounter Procedures Procedure Name Priority Date/Time Associated Diagnosis Comments VITAMIN D, 25 HYDROXY TOTAL Routine 11/14/2022 3:21 PM CDT Vitamin D deficiency CBC WITH AUTO DIFFERENTIAL Routine 11/14/2022 3:21 PM CDT Microcytic anemia VITAMIN B12 Routine 11/14/2022 3:21 PM CDT Microcytic anemia TRANSFERRIN Routine 11/14/2022 3:21 PM CDT Microcytic anemia Vitamin D deficiency RETICULOCYTE COUNT (RETIC) Routine 11/14/2022 3:21 PM CDT Microcytic anemia IRON W/IRON BINDING CAPACITY Routine 11/14/2022 3:21 PM CDT Microcytic anemia Vitamin D deficiency FERRITIN Routine 11/14/2022 3:21 PM CDT Microcytic anemia CMP (COMPREHENSIVE METABOLIC PANEL) Routine 11/14/2022 3:21 PM CDT Microcytic anemia COMPLETE BLOOD COUNT (CBC) WITH DIFF Routine 11/14/2022 3:21 PM CDT Microcytic anemia documented in this encounter Results * (ABNORMAL) CBC WITH AUTO DIFFERENTIAL (11/14/2022 3:21 PM CDT) WBC 8.33 4.00 - 12.00 10(3)/mcL 11/14/2022 4:09 PM CDT [facility] RBC 4.33 3.80 - 5.30 10(6)/mcL 11/14/2022 4:09 PM CDT [facility] HEMOGLOBIN (HGB) 11.4(L) 12.0 - 15.8 g/dL 11/14/2022 4:09 PM CDT [facility] HEMATOCRIT (HCT) 35.6(L) 36.0 - 47.0 % 11/14/2022 4:09 PM CDT [facility] MCV 82.2 82.0 - 96.0 fL 11/14/2022 4:09 PM CDT [facility] MCH 26.3 26.0 - 34.0 pg 11/14/2022 4:09 PM CDT [facility] MCHC 32.0 31.0 - 36.0 g/dL 11/14/2022 4:09 PM CDT [facility] PLATELET COUNT 405 140 - 440 10(3)/mcL 11/14/2022 4:09 PM CDT [facility] RDW 14.2 11.8 - 15.5 % 11/14/2022 4:09 PM CDT [facility] MPV 10.0 9.7 - 12.4 fL 11/14/2022 4:09 PM CDT [facility] NEUTROPHILS 64.5 47.0 - 73.0 % 11/14/2022 4:09 PM CDT [facility] LYMPHOCYTES 27.9 18.0 - 42.0 % 11/14/2022 4:09 PM CDT [facility] MONOCYTES 4.9 4.0 - 12.0 % 11/14/2022 4:09 PM CDT [facility] EOSINOPHILS 2.3 0.0 - 5.0 % 11/14/2022 4:09 PM CDT [facility] BASOPHILS 0.4 0.0 - 1.0 % 11/14/2022 4:09 PM CDT [facility] ABSOLUTE NEUTROPHILS 5.38 1.60 - 7.70 10(3)/mcL 11/14/2022 4:09 PM CDT [facility] ABSOLUTE LYMPHOCYTES 2.32 1.30 - 3.20 10(3)/mcL 11/14/2022 4:09 PM CDT [facility] ABSOLUTE MONOCYTES 0.41 0.20 - 1.00 10(3)/mcL 11/14/2022 4:09 PM CDT [facility] ABSOLUTE EOSINOPHIL 0.19 0.00 - 0.40 10(3)/mcL 11/14/2022 4:09 PM CDT [facility] ABSOLUTE BASOPHILS 0.03 0.00 - 0.10 10(3)/mcL 11/14/2022 4:09 PM CDT [facility] NRBC PER 100 WBC 0 11/15/19 4:09 PM CDT [facility] Blood Venipuncture / Unknown 11/14/2022 3:21 PM CDT 11/14/2022 4:01 PM CDT Ligia Choi APRN, CNP HEMATOLOGY ORDERABLE S Final Result [facility] [address] [place] [address] * TRANSFERRIN (11/14/2022 3:21 PM CDT) TRANSFERRIN 340 180 - 382 mg/dL 11/14/2022 10:35 PM CDT [facility] Blood Venipuncture / Unknown 11/14/2022 3:21 PM CDT 11/14/2022 3:59 PM CDT Ligia Choi APRN, CNP CHEMISTRY ORDERABLES Final Result [facility] [address] [place] [address], * (ABNORMAL) IRON W/IRON BINDING CAPACITY (11/14/2022 3:21 PM CDT) IRON 57.31 37 - 145 mcg/dL 11/14/2022 4:35 PM CDT [facility] % SATURATION * 15(L) 20 - 55 % 11/14/2022 4:35 PM CDT [facility] UIBC 338 112 - 346 mcg/dL 11/14/2022 4:35 PM CDT [facility] TIBC CALC 395 149 - 491 mcg/dL 11/14/2022 4:35 PM CDT [facility] Blood Venipuncture / Unknown 11/14/2022 3:21 PM CDT 11/14/2022 3:59 PM CDT Ligia Choi TRAINING GENERALIST, SUZY CHEMISTRY ORDERABLES Final Result [facility] [address] [place] [address] * VITAMIN D, 25 HYDROXY TOTAL (11/14/2022 3:21 PM CDT) VITAMIN D, 25 HYDROX 39 >=30 ng/mL 11/14/2022 4:46 PM CDT [facility] Blood Venipuncture / Unknown 11/14/2022 3:21 PM CDT 11/14/2022 4:01 PM CDT Narrative [facility] - 11/14/2022 4:46 PM CDT Published reference ranges for Vitamin D vary depending on time and place and method of testing, and on patient's age, sex, ethnicity and levels of other measured analytes such as parathormone, calcium and phosphorus. ??The result should be evaluated in conjunction with clinical findings and suspicions. [employer] of [employer] and Endocrine Clinical Practice Guidelines: Status Vitamin D levels (ng/mL) Deficient <=20 At risk of inadequacy 21-29 Sufficient 30-100 Centers of Disease Control and Prevention Guidelines: Status Vitamin D levels (ng/mL) Deficient <13 At risk of inadequacy 13-19 Sufficient 20-50 Possibly harmful >50 References: [employer], 2010 Dietary reference intakes for calcium and vitamin D. [place]: ??The National Academies Press. Mami M, Sonam N, Corbin MORENO, et al., Evaluation, treatment, and prevention of Vitamin D deficiency: an Endocrinology Clinical Practice Guideline. JCEM 2011 96: 7 5507-7564. Ha A, Leonardo C, Dayanara D, et al., Vitamin D Status: ??[place], 2000- 6, [facility] data brief, no. 59, MD Danielle: ??[facility] for Health Statistics. 2010. Ligia Choi TRAINING GENERALIST, DRAFTER AUTOMOTIVE DESIGN CHEMISTRY ORDERABLES Final Result [facility] [address] [place] [address] * (ABNORMAL) RETICULOCYTE COUNT (RETIC) (11/14/2022 3:21 PM CDT) RETICULOCYTES 2.3(H) 0.5 - 2.0 % 11/14/2022 4:09 PM CDT [facility] Blood Venipuncture / Unknown 11/14/2022 3:21 PM CDT 11/14/2022 4:01 PM CDT Ligia Choi APRN, DRAFTER AUTOMOTIVE DESIGN HEMATOLOGY ORDERABLE S Final Result [facility] [address] [place] [address] * FERRITIN (11/14/2022 3:21 PM CDT) FERRITIN 15 13 - 150 ng/mL 11/14/2022 4:35 PM CDT [facility] Blood Venipuncture / Unknown 11/14/2022 3:21 PM CDT 11/14/2022 3:59 PM CDT Ligia Stronilesheck TRAINING GENERALIST, DRAFTER AUTOMOTIVE DESIGN CHEMISTRY ORDERABLES Final Result [facility] [address] [place] [address] * (ABNORMAL) VITAMIN B12 (11/14/2022 3:21 PM CDT) Pathologist [facility] VITAMIN B12 166(L) 243 - 894 pg/mL 11/14/2022 4:46 PM CDT [facility] Blood Venipuncture / Unknown 11/14/2022 3:21 PM CDT 11/14/2022 4:01 PM CDT Ligia Choi APRN, CNP CHEMISTRY ORDERABLES Final Result [facility] [address] [place] [address] * (ABNORMAL) CMP (COMPREHENSIVE METABOLIC PANEL) (11/14/2022 3:21 PM CDT) [facility] SODIUM 137 136 - 144 mmol/L 11/14/2022 4:35 PM CDT [facility] POTASSIUM 3.6 3.5 - 5.1 mmol/L 11/14/2022 4:35 PM CDT [facility] CHLORIDE 103 100 - 110 mmol/L 11/14/2022 4:35 PM CDT [facility] CO2, VENOUS 24 22 - 32 mmol/L 11/14/2022 4:35 PM CDT [facility] ANION GAP 13.6 8.0 - 20.0 mmol/L 11/14/2022 4:35 PM CDT [facility] GLUCOSE 76 70 - 99 mg/dL 11/14/2022 4:35 PM CDT [facility] BUN 9 6 - 20 mg/dL 11/14/2022 4:35 PM CDT [facility] CREATININE, BLOOD 0.94 0.60 - 1.10 mg/dL 11/14/2022 4:35 PM CDT [facility] BUN/CREATININE RATIO 10(L) 12 - 20 ratio 11/14/2022 4:35 PM CDT [facility] TOTAL PROTEIN 6.9 6.0 - 8.3 g/dL 11/14/2022 4:35 PM CDT [facility] ALBUMIN 4.2 3.5 - 5.2 g/dL 11/14/2022 4:35 PM CDT [facility] Comment: The colormetric methods used for the determination of Albumin may lead to falsely elevated test results in patients suffering from renal failure or insufficiency due to interference with other proteins. A/G RATIO 1.6 1.0 - 2.0 11/14/2022 4:35 PM CDT [facility] CALCIUM 8.8 8.7 - 10.5 mg/dL 11/14/2022 4:35 PM CDT [facility] T BILI 0.2 0.2 - 1.2 mg/dL 11/14/2022 4:35 PM CDT [facility] SGOT (AST) 14 <=32 U/L 11/14/2022 4:35 PM CDT [facility] SGPT (ALT) 13 <=41 U/L 11/14/2022 4:35 PM CDT [facility] ALKALINE PHOSPHATASE 79 35 - 105 U/L 11/14/2022 4:35 PM CDT [facility] IS THE PATIENT REQUIRED TO BE FASTING? No 11/14/2022 4:35 PM CDT [facility] GFR, ESTIMATED >60 >=60 11/14/2022 4:35 PM CDT [facility] Comment: Creatinine Clearance is the preferred criteria for selecting drug dose adjustments in renally impaired patients. ??The GFR is provided as additional pertinent clinical information. GFR is reported in mL/min/1.73 sq m. Calculation based on the Chronic Kidney Disease Epidemiology Collaboration (CKD- EPI) equation refit without adjustment for race. GFR, EST. >60 >=60 023 4:35 PM CDT [facility] GFR, EST. NONAFRICAN >60 >=60 11/14/2022 4:35 PM CDT [facility] Blood Venipuncture / Unknown 11/14/2022 3:21 PM CDT 11/14/2022 3:59 PM CDT us Ligia Choi TRAINING GENERALIST, DRAFTER AUTOMOTIVE DESIGN CHEMISTRY ORDERABLES Final Result [facility] [address] [place] [address] documented in this encounter Visit Diagnoses Diagnosis Microcytic anemia Iron deficiency anemia, unspecified Vitamin D deficiency Unspecified vitamin D deficiency documented in this encounter Additional Health Concerns Assessment Noted Time PHQ-9 Depression Total Score: 0 11/15/19 23 2:00 PM CDT documented as of this encounter Care Teams Moss Bleacher Relationship Specialty Start Date End Date Kj Merlos MD [address] [address] PCP - General Family Medicine 04/09/21 documented as of this encounter
--- OUTSIDE RECORDS SUMMARY | 2024-04-17 13:52 | XMS_ITS | Encounter Summary ---
Author Organization [facility] Address [address] [place] [place] [address] Phone Care Team Providers Care Business Systems Advisor Name Role Phone Kj Merlos MD Primary Care Provider [phone] Reason for Visit * Reason Comments Immunization/Injection Encounter Details Date Type Department Care Team ([facility] st Contact Info) Description 11/26/2022 1:30 PM CDT Immunization [facility] - Family Medicine - [place] [address] [place] [address] Clinic, [place] Nurse [place] Vitamin B deficiency (Primary Dx) Discharge Disposition: [...] PM CDT Legal Sex Female 2:47 AM COLD MEAT CHEF Gender Identity Female 11/25/2022 4:06 PM CDT Sexual Orientation Not on file 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 No / Unsure 12/03/2022 12:48 PM CDT documented as of this encounter Progress Notes * Margarita Quinonez RN - 11/26/2022 1:30 PM CDT Esther presents for weekly injection of b12 for diagnosis of b12 deficiency per order of Sherly dated 11/19/22. Patient tolerated injection well without incident. See Medication Administration Record (MAR) activity for details. documented in this encounter Plan of Treatment Upcoming Encounters Date Type Department Care Team (Late st Contact Info) Description 04/28/2024 10:00 AM COLD MEAT CHEF [facility] Stress [address] [place] [address] Karen Andino APRN, MOBILE HOME SET UP PERSON [address] [place] [address] Discharge Disposition: Discharged to home or Selfcare 06/02/2024 10:00 AM COLD MEAT CHEF Office Visit [facility] - Family Medicine [facility] #[address] [place] [address] Kelin Castle, PAC [address] [place] [address] documented as of this encounter Visit Diagnoses Diagnosis Vitamin B deficiency- Primary Unspecified vitamin B deficiency documented in this encounter Administered Medications Inactive Administered Medications - up to 3 most recent administrations Medication Order MAR Action Action Date Dose Rate Site cyanocobalamin (VITAMIN B-12) injection 1,000 mcg 1,000 mcg, Intramuscular, ONCE, 1 dose, On Fri11/26/22 at 1430Indications:Vitamin B deficiency Given 11/26/2022 2:03 PM CDT 1,000 mcg Right Deltoid documented in this encounter Additional Health Concerns Assessment Noted Time PHQ-9 Depression Total Score: 0 11/15/19 23 2:00 PM CDT documented as of this encounter Care Teams Business Systems Advisor Relationship Specialty Start Date End Date Kj Merlos MD #2 [place] [id number] PCP - General Family Medicine 04/09/21 documented as of this encounter
--- OUTSIDE RECORDS SUMMARY | 2024-04-17 13:52 | XMS_ITS | Encounter Summary ---
Author Organization [employer] Care Team Providers Care Public Relations Account Supervisor Name Role Phone Kj Merlos MD Primary Care Provider [phone] Encounter Details Date Type Department Care Team (Latest Contact Info) Description 11/14/2022 Travel Social History Tobacco Use Types Packs/Day [...] PM CDT Legal Sex Female 2:47 AM BARMAN Gender Identity Female 11/25/2022 4:06 PM CDT [...] Assessment Author Patient Health Questionnaire-2 Score 0 08/0 06/2022 2:00 PM CDT Paige Duggan documented as of this encounter Plan of Treatment Upcoming Encounters Date Type Department Care Team (Late st Contact Info) Description 04/28/2024 10:00 AM BARMAN Appointment [facility] Cardiology Stress [address] [place] [address] Karen Andino, TERADATA SOLUTION ARCHITECT, ALUMINUM CAN COLLECTOR [address] [place] [address] Discharge Disposition: Discharged to home or Selfcare 06/02/2024 10:00 AM BARMAN Office Visit [facility] [address] [place] [address] Kelin Castle PAC [address] [place] [address] documented as of this encounter Visit Diagnoses Not on filedocumented in this encounter Additional Health Concerns Assessment Noted Time PHQ-9 Depression Total Score: 0 11/15/19 23 2:00 PM CDT documented as of this encounter Care Teams Public Relations Account Supervisor Relationship Specialty Start Date End Date Kj Merlos MD #[address] [address] PCP - General Family Medicine 04/09/21 documented as of this encounter
--- OUTSIDE RECORDS SUMMARY | 2024-04-17 13:52 | XMS_ITS | Encounter Summary ---
Author Organization [facility] Address [address] [place] [address] Phone Care Team Providers Care Outsole Caser Name Role Phone Kj Merlos MD Primary Care Provider [phone] Reason for Visit * Reason Comments Immunization/Injection b12 Encounter Details Date Type Department Care Team ([facility] st Contact Info) Description 12/03/2022 1:00 PM CDT Immunization [facility] - Family Medicine [facility] [address]2 [place] [address] Clinic, [place] Nurse [place] B12 deficiency (Primary Dx) Discharge Disposition: Discharged [...] PM CDT Legal Sex Female 2:47 AM CHURN DRILLER Gender Identity Female 11/25/2022 4:06 PM CDT [...] as of this encounter Progress Notes * Cristy Mcgregor RN - 12/03/2022 1:00 PM CDT Order added. * Mayelin Roy RMA - 12/03/2022 1:00 PM CDT Esther presents today for immunization/ injection of b-12 ordered today 11/19/[address] Merlos. It wasadministered to patient without incident. Patient tolerated it well. See immunizations/injections activity. documented in this encounter Plan of Treatment Upcoming Encounters Date Type Department Care Team (Late st Contact Info) Description 04/28/2024 10:00 AM CHURN DRILLER [facility]ment [facility] Cardiology Stress [address] [place] [address] Karen Andino APRN, ENGINEER DESIGN AND CONSTRUCTION [address] [place] [address] Discharge Disposition: Discharged to home or Selfcare 06/02/2024 10:00 AM CHURN DRILLER Office Visit [facility] - Family Medicine [facility] [address]2 [place] [address] Kelni Castle, PAC [address] [place] [address] documented as of this encounter Visit Diagnoses [...] documented as of this encounter Care Teams Outsole Caser Relationship Specialty Start Date End Date Kj Merlos MD #[address] [address] PCP - General Family Medicine 04/09/21 documented as of this encounter
--- OUTSIDE RECORDS SUMMARY | 2024-04-17 13:52 | XMS_ITS | Encounter Summary ---
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 No / Unsure 11/26/2022 1:43 PM CDT documented as of this encounter Plan of Treatment Upcoming Encounters Date Type Department Care Team (Late st Contact Info) Description 04/28/2024 10:00 AM QUARRY EXTRACTION WORKER Appointment [facility] Cardiology Stress [address] [place] [address] Karen Andino APRN, ELEMENTARY ART TEACHER [address] [place] [address] Discharge Disposition: Discharged to home or Selfcare 06/02/2024 10:00 AM QUARRY EXTRACTION WORKER Office Visit [facility] [address] [place] [address] Kelin Castle, PAC [address] [place] [address] documented as of this encounter Visit Diagnoses Not on filedocumented in this encounter Additional Health Concerns Assessment Noted Time PHQ-9 Depression Total Score: 0 11/15/19 23 2:00 PM CDT documented as of this encounter Care Teams Community Organization Aide Relationship Specialty Start Date End Date Kj Merlos MD #[address] [address] PCP - General Family Medicine 04/09/21 documented as of this encounter
--- OUTSIDE RECORDS SUMMARY | 2024-04-17 13:52 | XMS_ITS | Encounter Summary ---
Author Organization [facility] Care Team Providers Care Customer Service Analyst Name Role Phone Paco Reagan APRN, RATING CLERK Unavailable Kj Merlos MD Primary Care Provider [phone] Encounter Details Date Type Department Care Team (Latest Contact Info) Description 04/30/2022 Travel Social History Tobacco Use Types Packs/Day [...] PM CDT Legal Sex Female 2:47 AM DRIVER EXAMINER Gender Identity Female 11/25/2022 4:06 PM [...] Coronavirus/COVID-19? No / Unsure 04/30/2022 12:50 PM DRIVER EXAMINER documented as of this encounter Plan of Treatment Upcoming Encounters Date Type Department Care Team (Late st Contact Info) Description 04/28/2024 10:00 AM DRIVER EXAMINER Appointment [facility] Cardiology Stress 1 [facility] [place] [address] Karen Andino APRN, RATING CLERK [address] [place] [address] Discharge Disposition: Discharged to home or Selfcare 06/02/2024 10:00 AM DRIVER EXAMINER Office Visit [facility] - Family Medicine [facility] [address] [facility] [place] [address] Kelin Castle, PAC [address] [place] [address] documented as of this encounter Visit Diagnoses Not on filedocumented in this encounter Additional Health Concerns Assessment Noted Time PHQ-9 Depression Total Score: 1 11/03/19 22 10:00 AM CDT documented as of this encounter Care Teams Customer Service Analyst Relationship Specialty Start Date End Date Kj Merlos MD #[address] [address] PCP - General Family Medicine 04/09/21 Paco Reagan, RYAN, RATING CLERK #[address] [address] Nurse Practitioner Advanced Practice Nurse 10/24/20 documented as of this encounter
--- OUTSIDE RECORDS SUMMARY | 2024-04-17 13:52 | XMS_ITS | Encounter Summary ---
Author Organization [facility] Care Team Providers Care Wet Wash Assembler Name Role Phone Paco Reagan APRN, REINFORCING STEEL MACHINE OPERATOR Unavailable Kj Merlos MD Primary Care Provider Encounter Details Date Type Department Care Team (Latest Contact Info) Description 04/09/2021 Travel Social History Tobacco Use Types Packs/Day [...] PM CDT Legal Sex Female 2:47 AM CROP FARM HELPER Gender Identity Female 11/25/2022 4:06 PM CDT Sexual Orientation Not on file Occupation Industry Job Start Date Job End Date [employer] Not on file Not on file Not on file COVID-19 Exposure Response Date Recorded In the last month, have you been in contact with someone who was confirmed or suspected to have Coronavirus / COVID-19? No / Unsure 04/09/2021 1:04 PM CROP FARM HELPER documented as of this encounter Plan of Treatment Upcoming Encounters Date Type Department Care Team (Late st Contact Info) Description 04/28/2024 10:00 AM CROP FARM HELPER Appointment [facility] Cardiology Stress [address] [place] [address] Karen Andino APRN, REINFORCING STEEL MACHINE OPERATOR [address] [place] [address] Discharge Disposition: Discharged to home or Selfcare 06/02/2024 10:00 AM CROP FARM HELPER Office Visit [facility] #2 [place] [address] Kelin Castle, [facility] [address] [place] [address] documented as of this encounter Visit Diagnoses Not on filedocumented in this encounter Care Teams Wet Wash Assembler Relationship Specialty Start Date End Date Kj Merlos MD #[address] [address] PCP - General Family Medicine 04/09/21 Paco Reagan, RYAN, REINFORCING STEEL MACHINE OPERATOR #[address] [address] Nurse Practitioner Advanced Practice Nurse 10/24/20 documented as of this encounter
--- OUTSIDE RECORDS SUMMARY | 2024-04-17 13:52 | XMS_ITS | Encounter Summary ---
Author Organization [facility] Address [address] [place] [address] Phone Care Team Providers Care Materials Tech Name Role Phone Paco Reagan APRN, SOFTWARE TECHNICIAN Unavailable Kj Merlos MD Primary Care Provider [phone] Reason for Visit * Reason Onset Date Comments Nausea 06/05/2021 Morning Sickness 06/05/2021 Encounter Details Date Type Department Care Team (Late st Contact Info) Description 06/05/2021 Nurse Triage [facility] [address] [place] [address] Kj Merlos MD #[address] [address] Nausea; Morning Sickness Social History Tobacco Use Types Packs/Day Years [...] PM CDT Legal Sex Female 2:47 AM CONTINUITY DIRECTOR Gender Identity Female 11/25/2022 4:06 PM CDT Sexual Orientation Not on file 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 file Not on file documented as of this encounter Miscellaneous Notes * Telephone Encounter - Chelo Bal RN - 06/05/2021 12:34 PM CONTINUITY DIRECTOR SITUATION: Nausea/morning sickness BACKGROUND: States nausea has been present for 1.5 weeks Just found out she was OBGYN appointment is at the end of June ASSESSMENT: Has thrown up twice in the last few weeks, but has constant nausea She had morning sickness with previous 2 pregnancies and was prescribed zofran RECOMMENDATION: See care advice and disposition for Guideline Patient is requesting prescription for Zofran Please advise First positive answer recorded, all responses to prior questions were negative. If symptoms increase, change or if new symptoms develop, call your HCP or call back. Recommendations were based on caller information and is not a diagnosis. Verified and reviewed all triage information with caller. Reason for Disposition ??? Nausea or vomiting Protocols used: - MORNING [id number] INUITY DIRECTOR documented in this encounter Plan of Treatment Upcoming Encounters Date Type Department Care Team (Late st Contact Info) Description 04/28/2024 10:00 AM CONTINUITY DIRECTOR Appointment [facility] Cardiology Stress [address] [place] [address] Karen Andino APRN, SOFTWARE TECHNICIAN [address] [place] [address] Discharge Disposition: Discharged to home or Selfcare 06/02/2024 10:00 AM CONTINUITY DIRECTOR Office Visit [facility] - Family Medicine [facility] #[address] [place] [address] Kelin Castle, SARABJIT [address] [place] [address] documented as of this encounter Visit Diagnoses Diagnosis Morning sickness- Primary Mild hyperemesis gravidarum, unspecified as to episode of care documented in this encounter Care Teams Materials Tech Relationship Specialty Start Date End Date Kj Merlos MD #[address] [address] PCP - General Family Medicine 04/09/21 Paco Reagan APRN, SOFTWARE TECHNICIAN #[address] [address] Nurse Practitioner Advanced Practice Nurse 10/24/20 documented as of this encounter
--- OUTSIDE RECORDS SUMMARY | 2024-04-17 13:52 | XMS_ITS | Encounter Summary ---
Author Organization 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 No / Unsure 11/19/2022 12:58 PM CDT documented as of this encounter Plan of Treatment Upcoming Encounters Date Type Department Care Team (Late st Contact Info) Description 04/28/2024 10:00 AM TRAINING REPRESENTATIVE Appointment [facility] Cardiology Stress [address] [place] [address] Karen Andino APRN, SOURCING COORDINATOR [address] [place] [address] Discharge Disposition: Discharged to home or Selfcare 06/02/2024 10:00 AM TRAINING REPRESENTATIVE Office Visit [facility] #[address] [place] [address] Kelin Castle, PAC [address] [place] [address] documented as of this encounter Visit Diagnoses Not on filedocumented in this encounter Additional Health Concerns Assessment Noted Time PHQ-9 Depression Total Score: 0 11/15/19 23 2:00 PM CDT documented as of this encounter Care Teams Food And Beverage Analyst Relationship Specialty Start Date End Date Kj Merlos MD #[address] [address] PCP - General Family Medicine 04/09/21 documented as of this encounter
--- OUTSIDE RECORDS SUMMARY | 2024-04-17 13:52 | XMS_ITS | Encounter Summary ---
Author Organization [facility] Address [address] [place] [address] Phone Care Team Providers Care Sports Therapist Name Role Phone Paco Reagan APRN, FLOORS BUFFER Unavailable Kj Merlos MD Primary Care Provider [phone] Reason for Referral * Consult, Test & Initiate Treatment (Less Than 4 Weeks) - Closed Specialty Diagnoses / Procedures Referred By Contac t Referred To Contact Diagnoses Right elbow pain Kj Merlos MD [address] [address] Phone: tel: fax: Minh Munroe DO Phone: tel: fax: Referral ID Status Reason Start Date Expiration Date Visits Re quested Visits Authorized [id number] Closed 04/09/2021 1 1 Scheduling Instructions Esther is being referred to Dr. Kuo or other specialist in patient's insurance network for 6 months right elbow pain lateral. Phys therapy no help See below for Esther's current medications, allergies and problem list. CURRENT MEDS: Current Outpatient Medications: Acetaminophen (TYLENOL PO), Take 650 mg by mouth every 4 hours as needed., Disp: , Rfl: ergocalciferol (VITAMIN D) 51883 UNIT Capsule, Take 1 Capsule by mouth once a week. (Patient not taking: Reported on 02/21/2021), Disp: 12 Capsule, Rfl: 0 famotidine (PEPCID) 20 MG Tablet, Take 1 Tablet by mouth 2 times daily., Disp: 180 Tablet, Rfl: 1 glycopyrrolate (ROBINUL) 2 MG Tablet, Take 2 Tablets by mouth 2 times daily as needed (excessive sweating)., Disp: 360 Tablet, Rfl: 1 HYDROcodone-acetaminophen (NORCO) 5-325 MG Tablet, Take 1 Tablet by mouth every 8 hours as needed for Moderate or more severe pain or Severe pain., Disp: 15 Tablet, Rfl: 0 ibuprofen (MOTRIN) 800 MG Tablet, Take 1 Tablet by mouth every 8 hours as needed for Moderate or more severe pain., Disp: 270 Tablet, Rfl: 1 loratadine (CLARITIN) 10 MG Tablet, Take 10 mg by mouth., Disp: , Rfl: venlafaxine (EFFEXOR-XR) 150 MG CAPSULE SR 24 HR, Take 1 Capsule by mouth daily., Disp: 90 Capsule, Rfl: 1 No current facility-administered medications for this visit. [...] Umbilical hernia without obstruction and without gangrene E ABATEMENT ENGINEER Reason for Visit * Reason Comments New Patient Encounter Details Date Type Department Care Team (Late st Contact Info) Description 04/09/2021 1:00 PM NOISE ABATEMENT ENGINEER [place] [facility] [place] [address] [place] [address] Kj Merlos MD [address] [address] Anxiety and depression (Primary Dx); Encounter for immunization; Right elbow pain; Gastroesophageal reflux disease without esophagitis; Vitamin D deficiency; Umbilical hernia without obstruction and without gangrene; Acute appendicitis; Acute cystitis without hematuria Discharge Disposition: Discharged to home or Selfcare [...] PM CDT Legal Sex Female 2:47 AM NOISE ABATEMENT ENGINEER Gender Identity Female 11/25/2022 4:06 PM [...] COVID-19? No / Unsure 04/09/2021 1:04 PM NOISE ABATEMENT ENGINEER documented as of this encounter Last Filed Vital Signs Vital Sign Reading Time Taken Comments Blood Pressure 128/68 04/09/2021 1:10 PM NOISE ABATEMENT ENGINEER Pulse 82 04/09/2021 1:10 PM NOISE ABATEMENT ENGINEER Temperature 36.6 ??C (97.8 ??F) 04/09/2021 1:10 PM CS T Respiratory Rate - - Oxygen Saturation 98% 04/09/2021 1:10 PM NOISE ABATEMENT ENGINEER Inhaled Oxygen Concentration - - Weight 99.3 kg (219 lb) 04/09/2021 1:10 PM NOISE ABATEMENT ENGINEER Height 162.6 cm (5' 4 ) 04/09/2021 1:10 PM NOISE ABATEMENT ENGINEER Body Mass Index 37.59 04/09/2021 1:10 PM NOISE ABATEMENT ENGINEER documented in this encounter Progress Notes * Mayelin Roy RMA - 04/09/2021 1:00 PM CST Esther Day, 30 y.o., female is here for New Patient Medication Refills: Patient reports/denies need for medication refills. Orders Pended: yes Requested Prescriptions No prescriptions requested or ordered in this encounter Home Medications Medication Sig Start Date End Date Taking? Authorizing Provider Acetaminophen (TYLENOL PO) Take 650 mg by mouth every 4 hours as needed. Yes Sunita Bunch MD ergocalciferol (VITAMIN D) 46969 UNIT Capsule Take 1 Capsule by mouth once a week. Patient not taking: Reported on 02/21/2021 10/25/20 Paco Reagan APRN, CNP famotidine (PEPCID) 20 MG Tablet Take 1 Tablet by mouth 2 times daily. 10/24/20 Yes Paco Reagan APRN, CNP glycopyrrolate (ROBINUL) 2 MG Tablet Take 2 Tablets by mouth 2 times daily as needed (excessive sweating). 10/24/20 Yes Paco Reagan APRN, CNP HYDROcodone-acetaminophen (NORCO) 5-325 MG Tablet Take 1 Tablet by mouth every 8 hours as needed for Moderate or more severe pain or Severe pain. 03/14/21 Yes Ousmane Gan MD ibuprofen (MOTRIN) 800 MG Tablet Take 1 Tablet by mouth every 8 hours as needed for Moderate or more severe pain. 10/24/20 Yes Paco Reagan APRN, CNP loratadine (CLARITIN) 10 MG Tablet Take 10 mg by mouth. 11/22/18 Yes Sunita Bunch MD venlafaxine (EFFEXOR-XR) 150 MG CAPSULE SR 24 HR Take 1 Capsule by mouth daily. 10/24/20 Yes Paco Reagan APRN, CNP There are no discontinued medications. I have reviewed the home medication list with the patient and have reconciled discrepancies. The list is accurate to the best of my knowledge. Smoking Status: Social History Tobacco Use ??? Smoking status: Light Tobacco Smoker Years: 15.00 Types: Cigarettes ??? Smokeless tobacco: Never Used ??? Tobacco comment: 1-2 cigarettes a day Vaping Use ??? Vaping Use: Never used Substance Use Topics ??? Alcohol use: Yes Comment: Rare ??? Drug use: Yes Types: Marijuana Comment: sleep and anxiety and pain Smoking Cessation Counseling Given: yes Health Care Maintenance: Health Maintenance Due Topic Date Due ??? Pap Smear Never done Orders Pended: no The following BPA's have been addressed with the patient today: Smoking bmi pap pt education abuse assessment E ABATEMENT ENGINEER * Kj Merlos MD - 04/09/2021 1:00 PM CST SUBJECTIVE: Esther Day is here to follow-up/ evaluation on her 1. Encounter for immunization Esther Day says she has been feeling [...] RELEASE RIGHT; Surgeon: Trent Blanton MD; Location: [facility]; Service: Orthopaedic ??? EXPLORATORY OF ABDOMEN 2002 Endo fundal plication ??? LAPAROSCOPIC APPENDECTOMY N/A 02/21/2021 Procedure: LAPAROSCOPIC APPENDECTOMY; Surgeon: Rm Butler MD; Location: [facility]; Service: General ??? LIPOMA RESECTION Left 07/04/2017 Procedure: EXCISION LIPOMA LEFT UPPER BACK; Surgeon: Gareth Em MD; Location: [facility]; Service: General ??? LIPOMA RESECTION Bilateral 02/18/2019 Procedure: EXCISION LIPOMAS LOWER BACK TIMES TWO; Surgeon: Escobar Goodman MD; Location: [facility]; Service: General ??? MYRINGOTOMY Bilateral ??? TONSILLECTOMY 1989' ??? UMBILICAL HERNIA REPAIR N/A 02/21/2021 Procedure: LAPAROSCOPIC UMBILICAL HERNIA REPAIR- NO MESH; Surgeon: Rm Butler MD; Location: [facility]; Service: General ??? WRIST GANGLION EXCISION Right 04/29/2018 Procedure: GANGLION CYST EXCISION REMOVAL RIGHT WRIST; Surgeon: Trent Blanton MD; Location: [facility]; Service: Orthopaedic Social History Tobacco Use ??? Smoking status: Light Tobacco Smoker Years: 15.00 Types: Cigarettes ??? Smokeless tobacco: Never Used ??? Tobacco comment: 1-2 cigarettes a day Substance Use Topics ??? Alcohol use: Yes Comment: Rare Exercise: no ROS: She denies chest pain, dyspnea, claudication, visual symptoms. She denies symptoms of transient ischemic attacks. No lightheadedness, palpitations, or syncope. No edema. She is compliant in taking her medication and denies medication side effects. Pain righ telbow Dull achy How long pain: 6 months Pain come and goes alleve helps Pt has helped a bit Still stiff No injuries Moderate No hand issues Outpatient Medications Marked as Taking for the 04/09/21 encounter (Office Visit) with Kj Merlos MD Medication Sig Dispense Refill ??? Acetaminophen (TYLENOL PO) Take 650 mg by mouth every 4 hours as needed. ??? famotidine (PEPCID) 20 MG Tablet Take 1 Tablet by mouth 2 times daily. 180 Tablet 1 ??? glycopyrrolate (ROBINUL) 2 MG Tablet Take 2 Tablets by mouth 2 times daily as needed (excessivesweating). 360 Tablet 1 ??? HYDROcodone-acetaminophen (NORCO) 5-325 MG Tablet Take 1 Tablet by mouth every 8 hours as needed for Moderate or more severe pain or Severe pain. 15 Tablet 0 ??? ibuprofen (MOTRIN) 800 MG Tablet Take 1 Tablet by mouth every 8 hours as needed for Moderate ormore severe pain. 270 Tablet 1 ??? loratadine (CLARITIN) 10 MG Tablet Take 10 mg by mouth. ??? venlafaxine (EFFEXOR-XR) 150 MG CAPSULE SR 24 HR Take 1 Capsule by mouth daily. 90 Capsule 1 Allergies Allergen Reactions ??? Augmentin [Amoxicillin-Pot Clavulanate] Rash and Itching ??? Ceclor [Cefaclor] Hives and Rash ??? Codeine Hives and Itching LABS Lab Results Component Value Date WBC 10.46 02/22/2021 HEMOGLOBIN 10.9 (L) 02/22/2021 HEMATOCRIT 34.9 (L) 02/22/2021 PLATELETCNT 353 02/22/2021 CHOLESTEROL 250 (H) 10/25/2020 TRIGLYCRIDES 395 (H) 10/25/2020 HDLCHOLESTE 35.6 (L) 10/25/2020 LDL 135 (H) 10/25/2020 [id number] 336 10/25/2020 FOLAT 11.2 10/25/2020 ESR 21 (H) 04/05/2016 Lab Results Component Value Date SODIUM 140 02/22/2021 POTASSIUM 4.0 02/22/2021 CHLORIDE 105 02/22/2021 CO2VEN 23 02/22/2021 ANIONGAP 16.0 02/22/2021 GLUCOSE 94 02/22/2021 BUN 8 02/22/2021 CREATININE 0.50 (L) 02/22/2021 BCRATIO8 16 02/22/2021 TOTALPROTEIN 6.2 02/21/2021 ALBUMIN 3.9 02/21/2021 CALCIUM 9.0 02/22/2021 TBIL 0.4 02/21/2021 SGOTAST 23 02/21/2021 SGPTALT 21 02/21/2021 ALKALINEPHO 75 02/21/2021 GFRNA >60 02/22/2021 GFRA >60 02/22/2021 VTMD 23 (L) 10/25/2020 TSH 1.780 10/25/2020 OBJECTIVE Well-nourished, well-developed, pleasant, cooperative 30 y.o. female in no acute distress. Vitals: 04/09/21 1310 BP: 128/68 Pulse: 82 Temp: 97.8 ??F (36.6 ??C) TempSrc: Temporal SpO2: 98% Weight: 219 lb (99.3 kg) Height: 5' 4 (1.626 m) Body mass index is 37.59 kg/m??. BP Readings from Last 3 Encounters: 04/09/21 128/68 03/15/21 120/68 03/07/21 126/78 Wt Readings from Last 3 Encounters: 04/09/21 219 lb (99.3 kg) 03/15/21 219 lb (99.3 kg) 03/07/21 224 lb (101.6 kg) SKIN: Warm and dry. EYES: Fundi appear benign. Sclerae are clear. NECK: Supple. No thyromegaly or adenopathy, no bruits. BACK: No spine or costovertebral angle tenderness. LUNGS: Clear to auscultation and percussion. HEART:normal rate, regular rhythm, normal S1, S2, no murmurs, rubs, clicks or gallops. ABDOMEN: Bowel sounds are active. No masses. No organomegaly, no tenderness. No bruits. EXTREMITIES: No edema. Obese Healing lap scars mid and lower abd Right arm/elbow: rom hand wnl. Pain with resisted ext thrid digit, hand No pain riesisted flexion wrist Sensation wnl hand, forearm Radial pulse wnl rom elbow wnl f/e/s/p Pain with palpation over later epicondyle ASSESSMENT AND PLAN Diagnoses and all orders for this visit: Encounter for immunization - SARS-COV-2 VACCINE 1ST DOSE APPT; Future There are no discontinued medications. No follow-ups on file. Continue current medication After visit summary discussed with patient. Documentation for this visit on 04/09/2021 was completed using a template. I have seen and examinedthe patient. Everything documented was personally performed at this visit with the necessary additions, deletions and changes made as appropriate. Right elbow pain; Send to ortho. Has done pt already. Stay with alleve. Suspect tennis elbow Anxiety: Stable. With effexor Gerd: On pepcid, stable covid shot today S/p inf shot Urged her to see dr. Akers for wwe Will do one last norco refill for surg pain E ABATEMENT ENGINEER documented in this encounter Plan of Treatment Upcoming Encounters Date Type Department Care Team (Late st Contact Info) Description 04/28/2024 10:00 AM NOISE ABATEMENT ENGINEER Appointment [facility] [address] [place] [address] Karen Andino, COMMERCIAL PRINT SALESMAN, FLOORS BUFFER [address] [place] [address] Discharge Disposition: Discharged to home or Selfcare 06/02/2024 10:00 AM NOISE ABATEMENT ENGINEER Office Visit [facility] [address] [place] [address] Kelin Castle, PAC [address] [place] [address] Scheduled Orders Name Type Priority Associated Diagnoses Orde r Schedule VITAMIN D, 25 HYDROXY TOTAL Lab Routine Vitamin D deficiency Expected: 07/08/2021 (Approximate), Expires: 08/07/2021 Scheduled Referrals Name Type Priority Associated Diagnoses Order Schedule EXTERNAL ORTHOPEDIC REFERRAL Outpatient Referral Less Than 4 weeks Right elbow pain Expected: 07/09/2021, Expires: 01/09/2022 documented as of this encounter Visit Diagnoses Diagnosis Anxiety and depression- Primary Dysthymic disorder Encounter for immunization Need for other specified prophylactic vaccination against single bacterial disease Right elbow pain Pain in joint, upper arm Gastroesophageal reflux disease without esophagitis Esophageal reflux Vitamin D deficiency Unspecified vitamin D deficiency Umbilical hernia without obstruction and without gangrene Acute appendicitis Acute appendicitis without mention of peritonitis Acute cystitis without hematuria Acute cystitis documented in this encounter Care Teams Sports Therapist Relationship Specialty Start Date End Date Kj Merlos MD #[address] [address] PCP - General Family Medicine 04/09/21 Paco Reagan, COMMER[employer] PR[employer] SALESMAN, FLOORS BUFFER [address] [address] Nurse Practitioner Advanced Practice Nurse 10/24/20 documented as of this encounter
--- OUTSIDE RECORDS SUMMARY | 2024-04-17 13:52 | XMS_ITS | Encounter Summary ---
Author Organization [facility] Address [address] [place] [address] Phone Care Team Providers Care Mental Health Therapist Name Role Phone Kj Merlos MD Primary Care Provider [phone] Reason for Visit * Reason Comments Anemia She is here to discu ss anemia Encounter Details Date Type Department Care Team (Late st Contact Info) Description 11/14/2022 2:30 PM CDT Office Visit 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 Gender Identity Female 11/25/2022 4:06 PM CDT [...] PM CDT documented as of this encounter Last Filed Vital Signs Vital Sign Reading Time Taken Comments Blood Pressure 124/74 11/14/2022 2:52 PM CDT Pulse 84 11/14/2022 2:52 PM CDT Temperature 36.4 ??C (97.5 ??F) 11/14/2022 2:52 PM CD T Respiratory Rate 14 11/14/2022 2:52 PM CDT Oxygen Saturation 98% 11/14/2022 2:52 PM CDT Inhaled Oxygen Concentration - - Weight 92.7 kg (204 lb 6.4 oz) 11/14/2022 2:52 P M CDT Height 154.9 cm (5' 1 ) 11/14/2022 2:52 PM CDT Body Mass Index 38.62 11/14/2022 2:52 PM CDT documented in this encounter Functional [...] Paige Duggan documented as of this encounter Patient Instructions * Attachments The following attachments cannot be sent through Care Everywhere. * Iron-Rich Diet ([place]) * Iron Deficiency Anemia Adult ([place]) documented in this encounter Progress Notes * Paige Duggan - 11/14/2022 2:30 PM CDT Esther Day, 31 y.o., female is here for Anemia (She is here to discuss anemia) Medication Refills: Patient reports/denies need for medication refills. Orders Pended: no Requested Prescriptions No prescriptions requested or ordered in this encounter Home Medications Medication Sig Start Date End Date Taking? Authorizing Provider ibuprofen (MOTRIN) 600 MG Tablet Take 1 Tablet by mouth every 8 hours as needed for Moderate or more severe pain. Patient not taking: Reported on 11/14/2022 04/30/22 Kj Merlos MD ondansetron (ZOFRAN) 4 MG Tablet Take 1 Tablet by mouth every 8 hours as needed for Nausea - 1st line. Patient not taking: Reported on 11/14/2022 04/30/22 Kj Merlos MD triamcinolone (KENALOG) 0.1 % Cream 10/26/21 Provider, MD Sunita There are no [...] 3 - 3-dose series) Never done ??? Hepatitis C Virus (HCV) Screening Never done ??? SARS-COV-2 Immunization (1) Never done ??? Cervical Cancer Screening (CCS) Never done ??? Pneumococcal Immunization Combined (2 - PCV) 12/29/2021 Orders Pended: no The following BPA's have been addressed with the patient today: Mammogram, Pap, Smoking, Depression, Fall Risk, Nutrition, Advanced Care Planning and HCC * Ligia Choi APRN, DETECTIVE CHIEF - 11/14/2022 2:30 PM CDT [facility] [address] [facility] [address] Dept: [phone] Dept Loc: [phone] Loc Patient: Esther Day : 1990 Sex: female Subjective Subjective: HPI: Esther aDy presents for Anemia (She is here to discuss anemia) . Patient presents today to discuss anemia. She has been donating plasma/blood but for the last threetimes they said she is low on Iron. She had a baby in January of last year. She reports low meat intake. She does occasionally take a multivitamin. She only struggles when she is . She does have a heavy menses and has for year. Her last menses was three weeks. She does report fatigue and occasional lightheadedness worse with feeling overheated. She also had gestational diabetes. She did bring in a form confirming anemia per [facility] [place]. Past Medical History Positives Diagnosis Date ??? Abscess of face Multiple -face and leg ??? Acid reflux ??? Allergic rhinitis ??? Anxiety ??? Chronic back pain ??? GERD (gastroesophageal reflux disease) ??? Headache ??? History of seizure ??? IBS (irritable bowel syndrome) ??? Migraines No current outpatient medications on file prior to visit. No current facility-administered medications on file prior to visit. Allergies Allergen Reactions ??? Augmentin [Amoxicillin-Pot Clavulanate] Rash and Itching ??? Ceclor [Cefaclor] Hives and Rash ??? Codeine Hives and Itching Past Surgical History: Procedure Laterality Date ??? EXPLORATORY OF ABDOMEN 2002 Endo fundal plication ??? LIPOMA RESECTION Left 07/04/2017 Procedure: EXCISION LIPOMA LEFT UPPER BACK; Surgeon: Gareth Em MD; Location: [facility]; Service: General ??? CARPAL TUNNEL RELEASE Right 04/29/2018 Procedure: CARPAL TUNNEL RELEASE RIGHT; Surgeon: Trent Blanton MD; Location: [facility]; Service: Orthopaedic ??? WRIST GANGLION EXCISION Right 04/29/2018 Procedure: GANGLION CYST EXCISION REMOVAL RIGHT WRIST; Surgeon: Trent Blanton MD; Location: [facility]; Service: Orthopaedic ??? LIPOMA RESECTION Bilateral 02/18/2019 Procedure: EXCISION LIPOMAS LOWER BACK TIMES TWO; Surgeon: Escobar Goodman MD; Location: [facility]; Service: General ??? LAPAROSCOPIC APPENDECTOMY N/A 02/21/2021 Procedure: LAPAROSCOPIC APPENDECTOMY; Surgeon: Rm Butler MD; Location: [facility]; Service: General ??? UMBILICAL HERNIA REPAIR N/A 02/21/2021 Procedure: LAPAROSCOPIC UMBILICAL HERNIA REPAIR- NO MESH; Surgeon: Rm Butler MD; Location: [facility]; Service: General ??? MYRINGOTOMY Bilateral ??? TONSILLECTOMY Family History Problem Relation Age of Onset ??? Cancer Maternal Grandmother ??? Liver Cancer Maternal Grandmother ??? Skin Cancer Maternal Grandmother ??? No Known Problems Maternal Grandfather ??? Anxiety disorder Mother ??? No Known Problems Daughter ??? No Known Problems Daughter ??? Seizures Maternal Uncle Epilepsy ??? Seizures Maternal Uncle Epilepsy Review of Systems Constitutional: Positive for fatigue. Negative for activity change, appetite change, chills and fever. Respiratory: Negative for cough, chest tightness, shortness of breath and wheezing. Cardiovascular: Negative for chest pain, palpitations and leg swelling. Gastrointestinal: Negative for constipation, diarrhea, nausea and vomiting. Neurological: Negative for dizziness, light-headedness and headaches. Psychiatric/Behavioral: Negative for agitation, behavioral problems, confusion, decreased concentration, dysphoric mood, hallucinations, self-injury, sleep disturbance and suicidal ideas. The patientis not nervous/anxious and is not hyperactive. Objective Objective: BP 124/74 (BP Location: Left Arm, BP Position: Sitting, BP Cuff Size: Regular) Pulse 84 Temp 97.5 ??F (36.4 ??C) (Temporal) Resp 14 Ht 5' 1 (1.549 m) Wt 204 lb 6.4 oz (92.7 kg) LMP (LMP Unknown) Comment: should be starting on 05/06/22 SpO2 98% Yes BMI 38.62 kg/m?? Physical Exam Vitals and nursing note reviewed. Constitutional: General: She is not in acute distress. Appearance: Normal appearance. She is well-developed. She is not diaphoretic. HENT: Head: Normocephalic and atraumatic. Right Ear: External ear normal. Left Ear: External ear normal. Eyes: Pupils: Pupils are equal, round, and reactive to light. Neck: Trachea: No tracheal deviation. Cardiovascular: Rate and [...] Diagnoses and all orders for this visit: Microcytic anemia - CMP (COMPREHENSIVE METABOLIC PANEL); Future - COMPLETE BLOOD COUNT (CBC) WITH DIFF; Future - IRON,TRANSFERN,CALC.TIBC,%SAT; Future - VITAMIN B12; Future - FERRITIN; Future - RETICULOCYTE COUNT (RETIC); Future Vitamin D deficiency - VITAMIN D, 25 HYDROXY TOTAL; Future Follow up labs ordered. Discussed fatigue, will determine follow up and clearance for blood donation pending test results. documented in this encounter Plan of Treatment Upcoming Encounters Date Type Department Care Team (Late st Contact Info) Description 04/28/2024 10:00 AM TEACHER OF THE HANDICAPPED [facility]ment [facility] Stress [address] [place] [address] Karen Andino APRN, DETECTIVE CHIEF [address] [place] [address] Discharge Disposition: Discharged to home or Selfcare 06/02/2024 10:00 AM TEACHER OF THE HANDICAPPED Office Visit [facility] - [facility] Medicine [facility] [address] [place] [address] Kelin Castle, PAC [address] [place] [address] Scheduled Orders Name Type Priority Associated Diagnoses Orde r Schedule IRON,TRANSFERN,CALC.TIB C,%SAT Lab Routine Microcytic anemia Expected: 11/14/2022, Expires: 12/05/2022 documented as of this encounter Results * VITAMIN D, 25 HYDROXY TOTAL (11/14/2022 3:21 PM CDT) VITAMIN D, 25 HYDROX 39 >=30 ng/mL 11/14/2022 4:46 PM CDT [facility] Blood Venipuncture / Unknown 11/14/2022 3:21 PM CDT 11/14/2022 4:01 PM CDT Narrative [facility] - 11/14/2022 4:46 PM CDT Published reference ranges for Vitamin D vary depending on time and place and method of testing, and on patient's age, sex, ethnicity and levels of other measured analytes such as parathormone, calcium and phosphorus. ??The result should be evaluated in conjunction with clinical findings and suspicions. [place] of [employer] and Endocrine Clinical Practice Guidelines: Status Vitamin D levels (ng/mL) Deficient <=20 At risk of inadequacy 21-29 Sufficient 30-100 Centers of Disease Control and Prevention Guidelines: Status Vitamin D levels (ng/mL) Deficient <13 At risk of inadequacy 13-19 Sufficient 20-50 Possibly harmful >50 References: [place] [employer], 2010 Dietary reference intakes for calcium and vitamin D. [place]: ??The National Academies Press. Mami M, Sonam N, Margarito-Pancho MORENO, et al., Evaluation, treatment, and prevention of Vitamin D deficiency: an Endocrinology Clinical Practice Guideline. JCEM 2011 96: 7 0634-6209. Ha Contreras, Leonardo Thapa, Dayanara Traylor, et al., Vitamin D Status: ??[place], 1005, [facility], [facility] data brief, no. 59, MD Danielle: ??[facility] Statistics. 2011. Ligia Choi APRN, SUZY CHEMISTRY ORDERABLES Final Result [facility] [address] [place] [address] * (ABNORMAL) RETICULOCYTE COUNT (RETIC) (11/14/2022 3:21 PM CDT) RETICULOCYTES 2.3(H) 0.5 - 2.0 % 11/14/2022 4:09 PM CDT [facility] Blood Venipuncture / Unknown 11/14/2022 3:21 PM CDT 11/14/2022 4:01 PM CDT Ligia Choi APRN, SUZY HEMATOLOGY ORDERABLE S Final Result Performing Organization Address City/[facility]/ZIP Co de Phone Number [facility] [address] [place] [address] * FERRITIN (11/14/2022 3:21 PM CDT) FERRITIN 15 13 - 150 ng/mL 11/14/2022 4:35 PM CDT [facility] Blood Venipuncture / Unknown 11/14/2022 3:21 PM CDT 11/14/2022 3:59 PM CDT Ligia Choi APRN, SUZY CHEMISTRY ORDERABLES Final Result [facility] [address] [place] [address] * (ABNORMAL) VITAMIN B12 (11/14/2022 3:21 PM CDT) VITAMIN B12 166(L) 243 - 894 pg/mL 11/14/2022 4:46 PM CDT [facility] Blood Venipuncture / Unknown 11/14/2022 3:21 PM CDT 11/14/2022 4:01 PM CDT us Ligia Choi APRN, CNP CHEMISTRY ORDERABLES Final Result [facility] [address] [place] [address] * (ABNORMAL) CMP (COMPREHENSIVE METABOLIC PANEL) (11/14/2022 3:21 PM CDT) SODIUM 137 136 - 144 mmol/L 11/14/2022 4:35 PM CDT [facility] POTASSIUM 3.6 3.5 - 5.1 mmol/L 11/14/2022 4:35 PM CDT [facility] CHLORIDE 103 100 - 110 mmol/L 11/14/2022 4:35 PM CDT [facility] CO2, VENOUS 24 22 - 32 mmol/L 11/14/2022 4:35 PM CDT [facility] ANION GAP 13.6 8.0 - 20.0 mmol/L 11/14/2022 4:35 PM CDT [facility] GLUCOSE 76 70 - 99 mg/dL 11/14/2022 4:35 PM CDT [facility] BUN 9 6 - 20 mg/dL 11/14/2022 4:35 PM CDT [facility] CREATININE, BLOOD 0.94 0.60 - 1.10 mg/dL 11/14/2022 4:35 PM CDT [facility] BUN/CREATININE RATIO 10(L) 12 - 20 ratio 11/14/2022 4:35 PM CDT [facility] TOTAL PROTEIN 6.9 6.0 - 8.3 g/dL 11/14/2022 4:35 PM CDT [facility] ALBUMIN 4.2 3.5 - 5.2 g/dL 11/14/2022 4:35 PM CDT [facility] Comment: The colormetric methods used for the determination of Albumin may lead to falsely elevated test results in patients suffering from renal failure or insufficiency due to interference with other proteins. A/G RATIO 1.6 1.0 - 2.0 11/14/2022 4:35 PM CDT [facility] CALCIUM 8.8 8.7 - 10.5 mg/dL 11/14/2022 4:35 PM CDT [facility] T BILI 0.2 0.2 - 1.2 mg/dL 11/14/2022 4:35 PM CDT [facility] SGOT (AST) 14 <=32 U/L 11/14/2022 4:35 PM CDT [facility] SGPT (ALT) 13 <=41 U/L 11/14/2022 4:35 PM CDT [facility] ALKALINE PHOSPHATASE 79 35 - 105 U/L 11/14/2022 4:35 PM CDT [facility] IS THE PATIENT REQUIRED TO BE FASTING? No 11/14/2022 4:35 PM CDT [facility] GFR, ESTIMATED >60 >=60 11/14/2022 4:35 PM CDT [facility] Comment: Creatinine Clearance is the preferred criteria for selecting drug dose adjustments in renally impaired patients. ??The GFR is provided as additional pertinent clinical information. GFR is reported in mL/min/1.73 sq m. Calculation based on the Chronic Kidney Disease Epidemiology Collaboration (CKD- EPI) equation refit without adjustment for race. GFR, EST. >60 >=60 023 4:35 PM CDT [facility] GFR, EST. NONAFRICAN >60 >=60 11/14/2022 4:35 PM CDT [facility] Blood Venipuncture / Unknown 11/14/2022 3:21 PM CDT 11/14/2022 3:59 PM CDT us Ligia Choi BURN NURSE, DETECTIVE CHIEF CHEMISTRY ORDERABLES Final Result [facility] [address] [place] [address] documented in this encounter Visit Diagnoses Diagnosis Microcytic anemia- Primary Iron deficiency anemia, unspecified Vitamin D deficiency Unspecified vitamin D deficiency documented in this encounter Additional Health Concerns Assessment Noted Time PHQ-9 Depression Total Score: 0 11/15/19 23 2:00 PM CDT documented as of this encounter Care Teams Mental Health Therapist Relationship Specialty Start Date End Date Kj Merlos MD #[address] [address] PCP - General Family Medicine 04/09/21 documented as of this encounter
--- OUTSIDE RECORDS SUMMARY | 2024-04-17 13:52 | XMS_ITS | Encounter Summary ---
Author Organization [facility] Care Team Providers Care Retail Commission Sales Associate Name Role Phone Kj Merlos MD Primary Care Provider Encounter Details Date Type Department Care Team (Latest Contact Info) Description 12/03/2022 Travel Social History Tobacco Use Types Packs/Day [...] PM CDT Legal Sex Female 2:47 AM PRODUCT STEWARD Gender Identity Female 11/25/2022 4:06 PM CDT [...] st Contact Info) Description 04/28/2024 10:00 AM PRODUCT STEWARD Appointment [facility] Cardiology Stress [address] [place] [address] Karen Andino APRN, SQL BI DEVELOPER [address] [place] [address] Discharge Disposition: Discharged to home or Selfcare 06/02/2024 10:00 AM PRODUCT STEWARD Office Visit [facility]2 [place] [address] Kelin Castle, PAC [address] [place] [address] documented as of this encounter Visit Diagnoses Not on filedocumented in this encounter Additional Health Concerns Assessment Noted Time PHQ-9 Depression Total Score: 0 11/15/19 23 2:00 PM CDT documented as of this encounter Care Teams Retail Commission Sales Associate Relationship Specialty Start Date End Date Kj Merlos MD #[address] [address] PCP - General Family Medicine 04/09/21 documented as of this encounter
--- OUTSIDE RECORDS SUMMARY | 2024-04-17 13:52 | XMS_ITS | Encounter Summary ---
Author Organization [facility] Care Team Providers Care Cubing Machine Tender Name Role Phone Paco Reagan APRN, GROUP PROGRAM MANAGER Unavailable Kj Merlos MD Primary Care Provider Encounter Details Date Type Department Care Team (Latest Contact Info) Description 04/01/2022 Travel Social History Tobacco Use Types Packs/Day [...] Active Control Partners Comments Yes Male Comments Yes Sex and Gender Information Value Date Recorded Sex Assigned at Female 11/25/2022 4:06 PM CDT Legal Sex Female 2:47 AM CHIEF LEARNING OFFICER Gender Identity Female 11/25/2022 4:06 PM CDT Sexual Orientation Not on file 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 No / Unsure 04/01/2022 12:59 PM CHIEF LEARNING OFFICER documented as of this encounter Plan of Treatment Upcoming Encounters Date Type Department Care Team (Late st Contact Info) Description 04/28/2024 10:00 AM CHIEF LEARNING OFFICER Appointment [facility] Cardiology Stress 1 [facility] [place] [address] Karen Andino APRN, GROUP PROGRAM MANAGER [address] [place] [address] Discharge Disposition: Discharged to home or Selfcare 06/02/2024 10:00 AM CHIEF LEARNING OFFICER Office Visit [facility] #2 [facility] [place] [address] Kelin Castle, PAC [address] [place] [address] documented as of this encounter Visit Diagnoses Not on filedocumented in this encounter Additional Health Concerns Assessment Noted Time PHQ-9 Depression Total Score: 1 11/03/19 22 10:00 AM CDT documented as of this encounter Care Teams Cubing Machine Tender Relationship Specialty Start Date End Date Kj Merlos MD #[address] [address] PCP - General Family Medicine 04/09/21 Paco Reagan, RYAN, GROUP PROGRAM MANAGER #[address] [address] Nurse Practitioner Advanced Practice Nurse 10/24/20 documented as of this encounter
--- OUTSIDE RECORDS SUMMARY | 2024-04-17 13:52 | XMS_ITS | Encounter Summary ---
Author Organization [facility] Address [address] 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 and Post- Support Program Esther is eligible for [facility]???s and Post- support program. It is a free program being offered to patients who are or who have recently delivered and have Medicaid. The program provides journey education and support by a team of [facility] nurses and Advanced Practice Providers through the use of an keli called Vimodi. Our clinical team supports patients from 8 weeks of through 4 weeks post-. All patients alsoreceive a blood pressure cuff and assistance with aligning social determinant of health needs. Enrollment Method: 1. [facility] RN contacted patient to offer [facility] and Post- support program. Patient consented to participate in program Patient enrolled in: third trimester [facility] Screening preference: text Patient's address: VERIFIED Patient's email address: VERIFIED Patient's Phone number: VERIFIED Patient's OB Provider Name: RN advised patient that the enrollment link from [employer] will be delivered via email or text message. A Digital Health Navigator from our team will be contacting the patient to arrange deliveryand education of the blood pressure cuff. To learn more about [facility], please visit: [facility] Care From the [facility] ([email or web address]) documented in this encounter Plan of Treatment Upcoming Encounters Date Type Department Care Team (Late st Contact Info) Description 04/28/2024 10:00 AM RIM TURNING MACHINE OPERATOR Appointment [facility] Cardiology Stress [address] [place] [phone] Karen Andino APRN, CNP #[address] [place] [address] Discharge Disposition: Discharged to home or Selfcare 06/02/2024 10:00 AM RIM TURNING MACHINE OPERATOR Office Visit [facility] - [place] [address] [place] [address] Kelni Castle PAC [address] [place] [address] documented as of this encounter Visit Diagnoses Not on filedocumented in this encounter Additional Health Concerns Assessment Noted Time PHQ-9 Depression Total Score: 1 11/03/19 22 10:00 AM CDT documented as of this encounter Care Teams Straight Cutter Machine Relationship Specialty Start Date End Date Kj Merlos MD #[address] [address] PCP - General Family Medicine 04/09/21 Paco Reagan APRN, OPERATIONS MANAGEMENT TRAINEE #[address] [address] Nurse Practitioner Advanced Practice Nurse 10/24/20 documented as of this encounter
--- OUTSIDE RECORDS SUMMARY | 2024-04-17 13:52 | XMS_ITS | Encounter Summary ---
Author Organization [facility] Address [address] [place] [address] Phone Care Team Providers Care Paint Roller Winder Name Role Phone Paco Reagan APRN, PLACEMENT ASSISTANT Unavailable Kj Merlos MD Primary Care Provider [phone] Reason for Referral * Radiology Services (Routine) - Closed Specialty Diagnoses / Procedures Referred By Contac t Referred To Contact Radiology Diagnoses Encounter for supervision of other normal in third trimester Procedures US PREG UTRS> 14 WKS EA SGL FETS & MOM Robert Esteban MD Phone: tel: fax: Referral ID Status Reason Start Date Expiration Date Visits Re quested Visits Authorized [id number] Closed 08/09/2021 1 1 Reason for Visit * Radiology Services (Routine) - Closed Specialty Diagnoses / Procedures Referred By Contac t Referred To Contact Radiology Diagnoses Encounter for supervision of other normal in third trimester Procedures US PREG UTRS> 14 WKS EA SGL FETS & MOM Robert Esteban MD Phone: tel: fax: Referral ID Status Reason Start Date Expiration Date Visits Re quested Visits Authorized [id number] Closed 08/09/2021 1 1 Encounter Details Date Type Department Care Team (Latest Contact Info) Description 08/20/2021 6:55 AM CDT - 08/20/2021 11:59 PM CDT Hospital Encounter [facility] Ultrasound [address] [place] [address] Robert Akers MD 4 [facility] [address], [address] [place] [address] Discharge Disposition: Discharged to home or Selfcare [...] PM CDT Legal Sex Female 2:47 AM MINE EXPERT Gender Identity Female 11/25/2022 4:06 PM CDT [...] AM CDT documented as of this encounter Medications at Time of Discharge Acetaminophen (TYLENOL PO) Take 650 mg by mouth every 4 hours as needed. 2 famotidine (PEPCID) 20 MG TabletIndications:G astroesophageal reflux disease without esophagitis Take 1 Tablet by mouth 2 times daily. 180 Tablet 1 10/24/2020 2 glycopyrrolate (ROBINUL) 2 MG TabletIndications:P rimary focal hyperhidrosis Take 2 Tablets by mouth 2 times daily as needed (excessive sweating). 360 Tablet 1 10/24/2020 2 HYDROcodone-acetami nophen (NORCO) 5-325 MG TabletIndications:U mbilical hernia without obstruction and without gangrene,Acute appendicitis,Acute cystitis without hematuria Take 1 Tablet by mouth every 8 hours as needed for Moderate or more severe pain or Severe pain. 15 Tablet 04/09/2021 2 ibuprofen (MOTRIN) 800 MG TabletIndications:R ight elbow pain,Carpal tunnel syndrome of right wrist,Strain of neck muscle, initial encounter Take 1 Tablet by mouth every 8 hours as needed for Moderate or more severe pain. 270 Tablet 1 10/24/2020 2 loratadine (CLARITIN) 10 MG Tablet Take 10 mg by mouth. 11/22/2018 2 ondansetron (ZOFRAN) 4 MG TabletIndications:M orning sickness Take 1 Tablet by mouth every 8 hours as needed for Nausea - 1st line. 15 Tablet 06/06/2021 3 promethazine (PHENERGAN) 25 MG Tablet TAKE 1 TABLET BY MOUTH EVERY 4 TO 6 HOURS 08/10/2021 2 venlafaxine (EFFEXOR-XR) 150 MG CAPSULE SR 24 HRIndications:Anxie ty and depression Take 1 Capsule by mouth daily. 90 Capsule 1 04/09/2021 2 documented as of this encounter Plan of Treatment Upcoming Encounters Date Type Department Care Team (Late st Contact Info) Description 04/28/2024 10:00 AM MINE EXPERT [facility]ointment [facility] Card[facility] Stress 1 [place] [address] Karen Andino APRN, PLACEMENT ASSISTANT [address]2 [place] [address] Discharge Disposition: Discharged to home or Selfcare 06/02/2024 10:00 AM MINE EXPERT Office Visit [facility] #2 [place] [address] Kelin Castle, PAC [address] [place] [address] documented as of this encounter Procedures Procedure Name Priority Date/Time Associated Diagnosis Comments US PREG UTRS> 14 WKS EA SGL FETS & MOM EVAL Routine 08/20/2021 8:08 AM CDT Encounter for supervision of other normal in third trimester documented in this encounter Results * US PREG UTRS> 14 WKS EA SGL FETS & MOM EVAL (08/20/2021 8:08 AM CDT) Anatomical Region Laterality Modality OB N/A Ultrasound 08/20/2021 8:49 PM CDT Impressions 08/20/2021 8:52 PM CDT IMPRESSION: Single live intrauterine gestation estimated at ?? 18 weeks 1 day ?? by this ultrasound. Normal anatomy. Posterior placenta without previa. Breech presentation. DAVID of 14 cm. ??Heart rate 147 bpm. Narrative 08/20/2021 8:52 PM CDT EXAM DESCRIPTION: ?? US PREG UTRS> 14 WKS EA SGL FETS and MOM EVAL REASON FOR STUDY: ?? Anatomy evaluation of fetus. ?? uterus. TECHNIQUE: Complete ?? transabdominal ??obstetric ultrasound was performed. COMPARISON: ?? None for this FINDINGS: number: ?? single Presentation: ?Breech Gestational age by this ultrasound: ?? 18 weeks 1 day , EDC ?? 01/20/2022 Clinical gestation: ?? Not provided , EDC ?? not provided Estimated weight: ?? 221 g, +/-32 g, 8 ounces, +/-1 ounce , Percentile ?? 39th Placenta location: ?Posterior Placenta-previa: ?? No Cervical length: ?? 4.5 ??cm transabdominal heart rate: ?147 ??bpm Amniotic fluid index: ?? 14 ??cm S = Seen without gross abnormality A = Abnormal NC = Not clearly seen NS = Not seen on current exam PS = Previously seen anatomic survey: Intracranial anatomy: ?? S Nose/lips: ?? S Spine: ?? S Four-chamber heart: ?? S Diaphragm: ?? S Stomach: ?? S Kidneys: ?? S Bladder: ?? S 3-vessel cord: ?? S cord insertion: ?? S Upper extremities: ?? S Lower extremities: ?? S measurements: Biparietal diameter: ?? 3.99 ??cm ( 18 weeks 1 day ) Head circumference: ?? 14.97 ??cm ( 18 weeks 1 day ) Abdominal circumference: ?? 12.58 ??cm ( 18 weeks 2 days ) Femur length: ?? 2.59 ??cm ( 18 weeks 0 days ) Ratios: FL/AC: ?? 21 ??(20-24) HC/AC: ?? 1.19 Maternal: ?? None THIS IS AN ELECTRONICALLY VERIFIED FINAL REPORT 08/20/2021 8:49 PM - Electronically signed by ??Hugo Mena M.D. LB: LB D: ??08/20/2021 8:49 PM T: ??08/20/2021 8:49 PM Report ID: [id number] Reading Location: ??[id number] Procedure Note Hugo Mena MD - 08/20/2021 EXAM DESCRIPTION: US PREG UTRS> 14 WKS EA SGL FETS and MOM EVAL REASON FOR STUDY: Anatomy evaluation of fetus. uterus. TECHNIQUE: Complete transabdominal obstetric ultrasound was performed. COMPARISON: None for this FINDINGS: number: single Presentation: Breech Gestational age by this ultrasound: 18 weeks 1 day , EDC 01/20/2022 Clinical gestation: Not provided , EDC not provided Estimated weight: 221 g, +/-32 g, 8 ounces, +/-1 ounce , Percentile 39th Placenta location: Posterior Placenta-previa: No Cervical length: 4.5 cm transabdominal heart rate: 147 bpm Amniotic fluid index: 14 cm S = Seen without gross abnormality A = Abnormal NC = Not clearly seen NS = Not seen on current exam PS = Previously seen anatomic survey: Intracranial anatomy: S Nose/lips: S Spine: S Four-chamber heart: S Diaphragm: S Stomach: S Kidneys: S Bladder: S 3-vessel cord: S cord insertion: S Upper extremities: S Lower extremities: S measurements: Biparietal diameter: 3.99 cm ( 18 weeks 1 day ) Head circumference: 14.97 cm ( 18 weeks 1 day ) Abdominal circumference: 12.58 cm ( 18 weeks 2 days ) Femur length: 2.59 cm ( 18 weeks 0 days ) Ratios: FL/AC: 21 (20-24) HC/AC: 1.19 Maternal: None THIS IS AN ELECTRONICALLY VERIFIED FINAL REPORT 08/20/2021 8:49 PM - Electronically signed by Hugo Mena M.D. LB: LB Report ID: [id number] Reading Location: [place] [address] IMPRESSION: Single live intrauterine gestation estimated at 18 weeks 1 day by this ultrasound. Normal anatomy. Posterior placenta without previa. Breech presentation. DAVID of 14 cm. Heart rate 147 bpm. us Robert Akers MD IMG US OB Final Result documented in this encounter Visit Diagnoses Diagnosis Encounter for supervision of other normal in third trimester documented in this encounter Care Teams Paint Roller Winder Relationship Specialty Start Date End Date Kj Merlos MD [address] [address] PCP - General Family Medicine 04/09/21 Paco Reagan, DIGITAL COLOR PRESS OPERATOR, PLACEMENT ASSISTANT #[address] [address] Nurse Practitioner Advanced Practice Nurse 10/24/20 documented as of this encounter
--- OUTSIDE RECORDS SUMMARY | 2024-04-17 13:52 | XMS_ITS | Encounter Summary ---
Author Organization [facility] Address [address] [place] [address] Phone Care Team Providers Care Social Media Designer Name Role Phone Paco Reagan APRN, METALS SALES REPRESENTATIVE Unavailable Kj Merlos MD Primary Care Provider Reason for Visit * Reason Onset Date Comments Need Order 03/26/2022 Encounter Details Date Type Department Care Team (Late st Contact Info) Description 03/26/2022 Telephone [facility] [place] [address] [place] [address] Kj Merlos MD [address] [address] Need Order Social History Tobacco Use Types Packs/Day Years [...] PM CDT Legal Sex Female 2:47 AM DIE SINKER APPRENTICE Gender Identity Female 11/25/2022 4:06 PM CDT Sexual Orientation Not on file 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 file Not on file documented as of this encounter Miscellaneous Notes * Telephone Encounter - Cheli Sandy RN - 03/26/2022 8:55 AM CST Pended SINKER APPRENTICE * Telephone Encounter - Cheli Sandy RN - 03/26/2022 8:54 AM CST ----- Message from Kj Merlos MD sent at 03/25/2022 3:15 PM DIE SINKER APPRENTICE ----- Regarding: FW: Order for Lab Okay to pend Vit d Cbc, cmp ----- Message ----- From: Cheli Sandy RN Sent: 03/25/2022 3:14 PM DIE SINKER APPRENTICE To: Kj Merlos MD Subject: FW: Order for Lab ----- Message ----- From: Lucretia Caruso Sent: 03/25/2022 2:15 PM DIE SINKER APPRENTICE To: Chente To Subject: Order for Lab RFC: Esther was calling to schedule an appointment for an annual and to have labs drawn. I scheduled it for Apr and she was wanting to see if Dr Merlos could put in some labs to have drawn to go over @ this appointment. She asked for Vit D and Iron. She is feeling a little sleepy and fatigue. She did just have a baby and she states she gets low on these 2 after she delivers and was not sure if it's from having the baby or she is low on these. Please call Esther when the labs are in [phone] (relationship to patient self ) back regarding above referenced patient. Patient's Provider is Dr Merlos. SINKER APPRENTICE documented in this encounter Plan of Treatment Upcoming Encounters Date Type Department Care Team (Late st Contact Info) Description 04/28/2024 10:00 AM DIE SINKER APPRENTICE Appointment [facility] Cardiology Stress [address] [place] [address] Karen Andino, CONSERVATION ASSISTANT, METALS SALES REPRESENTATIVE [address] [place] [address] Discharge Disposition: Discharged to home or Selfcare 06/02/2024 10:00 AM DIE SINKER APPRENTICE Office Visit [facility] [place] [address] [place] [address] Kelin Castle, PAC [address] [place] [address] documented as of this encounter Results * (ABNORMAL) CMP (COMPREHENSIVE METABOLIC PANEL) (04/01/2022 1:04 PM DIE SINKER APPRENTICE) SODIUM 138 136 - 144 mmol/L 04/01/2022 2:23 PM [facility] POTASSIUM 3.7 3.5 - 5.1 mmol/L 04/01/2022 2:23 PM [facility] CHLORIDE 101 100 - 110 mmol/L 04/01/2022 2:23 PM [facility] CO2, VENOUS 27 22 - 32 mmol/L 04/01/2022 2:23 PM [facility] ANION GAP 13.7 8.0 - 20.0 mmol/L 04/01/2022 2:23 PM [facility] GLUCOSE 88 70 - 99 mg/dL 04/01/2022 2:23 PM [facility] BUN 8 6 - 20 mg/dL 04/01/2022 2:23 PM [facility] CREATININE, BLOOD 0.70 0.60 - 1.10 mg/dL 04/01/2022 2:23 PM [facility] BUN/CREATININE RATIO 11(L) 12 - 20 ratio 04/01/2022 2:23 PM [facility] TOTAL PROTEIN 7.2 6.0 - 8.3 g/dL 04/01/2022 2:23 PM [facility] ALBUMIN 4.7 3.5 - 5.2 g/dL 04/01/2022 2:23 PM [facility] Comment: The colormetric methods used for the determination of Albumin may lead to falsely elevated test results in patients suffering from renal failure or insufficiency due to interference with other proteins. A/G RATIO 1.9 1.0 - 2.0 04/01/2022 2:23 PM [facility] CALCIUM 9.9 8.9 - 10.3 mg/dL 04/01/2022 2:23 PM [facility] T BILI 0.4 <=1.2 mg/dL 04/01/2022 2:23 PM [facility] SGOT (AST) 20 <=32 U/L 04/01/2022 2:23 PM [facility] SGPT (ALT) 22 <=41 U/L 04/01/2022 2:23 PM [facility] ALKALINE PHOSPHATASE 91 35 - 105 U/L 04/01/2022 2:23 PM [facility] IS THE PATIENT REQUIRED TO BE FASTING? No 04/01/2022 2:23 PM [facility] GFR, ESTIMATED >60 >=60 04/01/2022 2:23 PM [facility] Comment: Creatinine Clearance is the preferred criteria for selecting drug dose adjustments in renally impaired patients. ??The GFR is provided as additional pertinent clinical information. GFR is reported in mL/min/1.73 sq m. Calculation based on the Chronic Kidney Disease Epidemiology Collaboration (CKD- EPI) equation refit without adjustment for race. GFR, EST. >60 >=60 022 2:23 PM [facility] GFR, EST. NONAFRICAN >60 >=60 04/01/2022 2:23 PM [facility] Blood Venipuncture / Unknown 04/01/2022 1:04 PM DIE SINKER APPRENTICE 04/01/2022 2:04 PM DIE SINKER APPRENTICE us Kj Merlos MD CHEMISTRY ORDERABLES Final Re sult Performing Organization Address City/[facility]/ZIP Co de Phone Number [facility] [address] [place] [address] * (ABNORMAL) VITAMIN D, 25 HYDROXY TOTAL (04/01/2022 1:04 PM DIE SINKER APPRENTICE) VITAMIN D, 25 HYDROX 28(L) >=30 ng/mL 04/01/2022 2:58 PM DIE SINKER APPRENTICE [facility] Blood Venipuncture / Unknown 04/01/2022 1:04 PM DIE SINKER APPRENTICE 04/01/2022 2:04 PM DIE SINKER APPRENTICE Narrative [facility] - 04/01/2022 2:58 PM DIE SINKER APPRENTICE Published reference ranges for Vitamin D vary depending on time and place and method of testing, and on patient's age, sex, ethnicity and levels of other measured analytes such as parathormone, calcium and phosphorus. ??The result should be evaluated in conjunction with clinical findings and suspicions. [place] [employer] and [facility] Clinical Practice Guidelines: Status Vitamin D levels (ng/mL) Deficient <=20 At risk of inadequacy 21-29 Sufficient 30-100 Centers of Disease Control and Prevention Guidelines: Status Vitamin D levels (ng/mL) Deficient <13 At risk of inadequacy 13-19 Sufficient 20-50 Possibly harmful >50 References: [employer] [place] [employer], 2010 Dietary reference intakes for calcium and vitamin D. [place]: ??The National Academies Press. Mami M, Sonam N, Corbin MORENO, et al., Evaluation, treatment, and prevention of Vitamin D deficiency: an Endocrinology Clinical Practice Guideline. JCEM 2011 96: 7 7252-2185. Ha A, Leonardo C, Dayanara D, et al., Vitamin D Status: ??[place], 2000- 1005, [facility] data brief, no. 59, MD Danielle: ??National Center for Health Statistics. 2010. Kj Merlos MD CHEMISTRY ORDERABLES Final Re sult Performing Organization Address City/[facility]/ZIP Co de Phone Number [facility] [address] [place] [address] documented in this encounter Visit Diagnoses Diagnosis Hyperlipidemia, unspecified hyperlipidemia type- Primary Vitamin D deficiency Unspecified vitamin D deficiency documented in this encounter Additional Health Concerns Assessment Noted Time PHQ-9 Depression Total Score: 1 11/03/19 22 10:00 AM CDT documented as of this encounter Care Teams Social Media Designer Relationship Specialty Start Date End Date Kj Merlos MD #[address] [address] PCP - General Family Medicine 04/09/21 Paco Reagan APRN, METALS SALES REPRESENTATIVE #[address] [address] Nurse Practitioner Advanced Practice Nurse 10/24/20 documented as of this encounter
--- OUTSIDE RECORDS SUMMARY | 2024-04-17 13:52 | XMS_ITS | Encounter Summary ---
Author Organization 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 No / Unsure 11/02/2021 10:09 AM CDT documented as of this encounter Plan of Treatment Upcoming Encounters Date Type Department Care Team (Late st Contact Info) Description 04/28/2024 10:00 AM COMMERCIAL HORTICULTURE INSTRUCTOR Appointment [facility] Cardiology Stress [address] [place] [address] Karen Andino APRN, ACOUSTIC SENSOR OPERATOR [address] [place] [address] Discharge Disposition: Discharged to home or Selfcare 06/02/2024 10:00 AM COMMERCIAL HORTICULTURE INSTRUCTOR Office Visit [facility] [address] [place] [address] Kelin Castle, PAC [address] [place] [address] documented as of this encounter Visit Diagnoses Not on filedocumented in this encounter Additional Health Concerns Assessment Noted Time PHQ-9 Depression Total Score: 1 11/03/19 22 10:00 AM CDT documented as of this encounter Care Teams Adjunct Faculty Relationship Specialty Start Date End Date Kj Melros MD #[address] [address] PCP - General Family Medicine 04/09/21 Paco Reagan APRN, ACOUSTIC SENSOR OPERATOR #[address] [address] Nurse Practitioner Advanced Practice Nurse 10/24/20 documented as of this encounter
--- OUTSIDE RECORDS SUMMARY | 2024-04-17 13:52 | XMS_ITS | Encounter Summary ---
Author Organization [facility] Address [address] [place] [address] Phone Care Team Providers Care Buoy Tender Name Role Phone Kj Merlos MD Primary Care Provider [phone] Reason for Visit * Reason Onset Date Comments Medication Problem 11/26/2022 Encounter Details Date Type Department Care Team (Late st Contact Info) Description 11/26/2022 Telephone [facility] #2 [place] [address] Kj Merlos MD #[address] [address] Medication Problem Social History Tobacco Use Types [...] PM CDT Legal Sex Female 2:47 AM SALES AND MARKETING AGENT Gender Identity Female 11/25/2022 4:06 PM [...] Miscellaneous Notes * Telephone Encounter - Francie Leno RN - 11/26/2022 3:02 PM CDT Called and let patient know, she stated that she understood. * Telephone Encounter - Kj Merlos MD - 11/26/2022 2:25 PM CDT Please call. Will do * Telephone Encounter - Margarita Quinonez RN - 11/26/2022 2:07 PM CDT Patient was seen at the Urgent care last week for poison elpidio. She was given a steroid injection andalso some steroid cream. She says the steroid cream is helping but she ran out because it was a tiny bottle. She wanted me to ask if you could give her some more steroid cream for all of the itching on her arms and legs. She does not know the name of the cream and I couldn't see anything in the system because she went to [facility]. thanks documented in this encounter Plan of Treatment Upcoming Encounters Date Type Department Care Team (Late st Contact Info) Description 04/28/2024 10:00 AM SALES AND MARKETING AGENT Appointment [facility] Cardiology Stress [address] [place] [address] Karen Andino APRN, VESSEL SLAG WORKER [address] [place] [phone] Discharge Disposition: Discharged to home or Selfcare 06/02/2024 10:00 AM SALES AND MARKETING AGENT Office Visit [facility] - [place] [address] [place] [address] Kelin Castle PAC [address] [place] [address] documented as of this encounter Visit Diagnoses Not on filedocumented in this encounter Additional Health Concerns Assessment Noted Time PHQ-9 Depression Total Score: 0 11/15/19 23 2:00 PM CDT documented as of this encounter Care Teams Buoy Tender Relationship Specialty Start Date End Date Kj Merlos MD [address] [address] PCP - General Family Medicine 04/09/21 documented as of this encounter
--- OUTSIDE RECORDS SUMMARY | 2024-04-17 13:52 | XMS_ITS | Encounter Summary ---
Author Organization [facility] Address [address] [place] [address] Phone Care Team Providers Care Tile Mason Name Role Phone Kj Merlos MD Primary Care Provider [phone] Reason for Visit * Reason Comments Immunization/Injection Encounter Details Date Type Department Care Team (Late st Contact Info) Description 11/19/2022 1:00 PM CDT Immunization [facility] - [place] #2 [place] [address] Clinic, [place] Nurse CT Vitamin B deficiency (Primary Dx) Discharge Disposition: [...] PM CDT Legal Sex Female 2:47 AM WORKFORCE MANAGEMENT ANALYST Gender Identity Female 11/25/2022 4:06 PM [...] Progress Notes * Margarita Quinonez RN - 11/19/2022 1:00 PM CDT Esther presents for weekly injection of b12 for diagnosis of b12 deficiency per order of Ligia Choi APRN dated 11/19/22. Patient tolerated injection well without incident. See Medication Administration Record (MAR) activity for details. Patient was seen in the nurse clinic today. She will mostlikely come here for her injections. She is supposed to have 6 injections Would you like all 6 of these injections done weekly? documented in this encounter Plan of Treatment Upcoming Encounters Date Type Department Care Team (Late st Contact Info) Description 04/28/2024 10:00 AM WORKFORCE MANAGEMENT ANALYST [facility] Stress [address] [place] [address] Karen Andino APRN, PSYCHIATRIC SOCIAL WORKER SUPERVISOR [address] [place] [address] Discharge Disposition: Discharged to home or Selfcare 06/02/2024 10:00 AM WORKFORCE MANAGEMENT ANALYST Office Visit [facility] #2 [place] [address] Kelin Castle, SARABJIT #2 [place] [address] documented as of this encounter Visit Diagnoses Diagnosis Vitamin B deficiency- Primary Unspecified vitamin B deficiency documented in this encounter Administered Medications Inactive Administered Medications - up to 3 most recent administrations Medication Order MAR Action Action Date Dose Rate Site cyanocobalamin (VITAMIN B-12) injection 1,000 mcg 1,000 mcg, Intramuscular, ONCE, 1 dose, On Fri11/19/22 at 1400Indications:Vitamin B deficiency Given 11/19/2022 1:55 PM CDT 1,000 mcg Left Deltoid documented in this encounter Additional Health Concerns Assessment Noted Time PHQ-9 Depression Total Score: 0 11/15/19 2:00 PM CDT documented as of this encounter Care Teams Tile Mason Relationship Specialty Start Date End Date Kj Merlos MD #2 [place] [address] PCP - General Family Medicine 04/09/21 documented as of this encounter
--- OUTSIDE RECORDS SUMMARY | 2024-04-17 13:52 | XMS_ITS | Encounter Summary ---
[facility] Organization [facility] Address [address] [place] [address] Phone Care Team Providers Care Track Repair Laborer Name Role Phone Paco Reagan APRN, SENIOR CENTER DIRECTOR Unavailable Kj Merlos MD Primary Care Provider [phone] Reason for Referral * Radiology Services (Routine) - Closed Specialty Diagnoses / Procedures Referred By Ariana knight Referred To Contact Radiology Diagnoses Encounter for supervision of other normal in third trimester Procedures US PREG UTRS> 14 WKS EA SGL FETS & MOM EVAL Robert Akers MD Phone: tel: fax: Referral ID Status Reason Start Date Expiration Date Visits Re quested Visits Authorized [id number] Closed 08/09/2021 1 1 Encounter Details Date Type Department Care Team (Late st Contact Info) Description 08/09/2021 Transcribe Orders [facility] Central Scheduling 1 [place] [address] Robert Akers MD [address] [place] [address] [address], [address] [place] [address] Encounter for supervision of other normal in third trimester (Primary Dx) Social History Tobacco Use Types Packs/Day Years [...] CDT Legal Sex Female 2:47 AM WATER TESTER Gender Identity Female 11/25/2022 4:06 PM CDT Sexual Orientation Not on file 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 file Not on file documented as of this encounter Plan of Treatment Upcoming Encounters Date Type Department Care Team (Late st Contact Info) Description 04/28/2024 10:00 AM WATER TESTER [facility]ment [facility] Stress 1 [place] [address] Karen Andino APRN, SENIOR CENTER DIRECTOR #2 [place] [address] Discharge Disposition: Discharged to home or Selfcare 06/02/2024 10:00 AM WATER TESTER Office Visit [facility] #2 [place] [address] Kelin Castle, PAC #2 [place] [address] documented as of this encounter Results * US PREG UTRS> [...] Electronically signed by ??Hugo Mena M.D. LB: ESCOBAR D: ??08/20/2021 8:49 PM T: ??08/20/2021 8:49 PM Report ID: [id number] Reading Location: ??[id number] Procedure Note Hugo Mena MD - 08/20/2021 [...] Electronically signed by Hugo Mena M.D. LB: ESCOBAR Report ID: [id number] Reading Location: [id number] IMPRESSION: Single live intrauterine gestation estimated at 18 weeks 1 day by this ultrasound. Normal anatomy. Posterior placenta without previa. Breech presentation. DAVID of 14 cm. Heart rate 147 bpm. us Robert Akers MD IMG US OB Final Result documented in this encounter Visit Diagnoses Diagnosis Encounter for supervision of other normal in third trimester- Primary Encounter for supervision of other normal in third trimester documented in this encounter Care Teams Track Repair Laborer Relationship Specialty Start Date End Date Kj Merlos MD #[address] [address] PCP - General Family Medicine 04/09/21 Paco Reagan APRN, SENIOR CENTER DIRECTOR #[address] [address] Nurse Practitioner Advanced Practice Nurse 10/24/20 documented as of this encounter
--- OUTSIDE RECORDS SUMMARY | 2024-04-17 13:52 | XMS_ITS | Encounter Summary ---
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 No / Unsure 03/15/2021 9:52 AM COMMERCIAL ARTIST LETTERING documented as of this encounter Plan of Treatment Upcoming Encounters Date Type Department Care Team (Late st Contact Info) Description 04/28/2024 10:00 AM COMMERCIAL ARTIST LETTERING Appointment [facility] Cardiology Stress [address] [place] [address] Karen Andino, SOCIAL ORGANIZATION PROFESSOR, FAST FOODS WORKER [address] [place] [address] Discharge Disposition: Discharged to home or Selfcare 06/02/2024 10:00 AM COMMERCIAL ARTIST LETTERING Office Visit [facility] #2 [place] [address] Kelin Castle, PAC [address] [place] [address] documented as of this encounter Visit Diagnoses Not on filedocumented in this encounter Care Teams Hang Gliding Instructor Relationship Specialty Start Date End Date Ousmane Gan MD #[address] [address] PCP - General Family Medicine 10/24/20 04/08/21 Paco Reagan, RYAN, FAST FOODS WORKER #[address] [address] Nurse Practitioner Advanced Practice Nurse 10/24/20 documented as of this encounter
--- OUTSIDE RECORDS SUMMARY | 2024-04-17 13:52 | XMS_ITS | Encounter Summary ---
Author Organization [facility] Address [address] 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 No / Unsure 03/07/2021 1:11 PM HORSE SHOER documented as of this encounter Miscellaneous Notes * Telephone Encounter - Kj Merlos MD - 03/15/2021 9:39 AM CST reviewed E SHOER documented in this encounter Plan of Treatment Upcoming Encounters Date Type Department Care Team (Late st Contact Info) Description 04/28/2024 10:00 AM HORSE SHOER [facility] Stress 1 [place] [address] Karen Andino APRN, SERVICE CONSULTANT [address] [place] [id number] Discharge Disposition: Discharged to home or Selfcare 06/02/2024 10:00 AM HORSE SHOER Office Visit [facility] [place] #2 [place] [address] Kelin Castle PAC [address] [place] [address] documented as of this encounter Visit Diagnoses Not on filedocumented in this encounter Care Teams Manufacturing Director Relationship Specialty Start Date End Date Ousmane Gan MD #[address] [address] PCP - General Family Medicine 10/24/20 04/08/21 Paco Reagan APRN, SERVICE CONSULTANT #[address] [place] [address] Nurse Practitioner Advanced Practice Nurse 10/24/20 documented as of this encounter
--- OUTSIDE RECORDS SUMMARY | 2024-04-17 13:52 | XMS_ITS | Encounter Summary ---
Author Organization [facility] Address [address] [place] [address] Phone Care Team Providers Care Machine Tool Mechanic Name Role Phone Paco Reagan APRN, FURNACE KEEPER Unavailable Kj Merlos MD Primary Care Provider Reason for Visit * Reason Comments Preventive Care Yearly physical Encounter Details Date Type Department Care Team (Late st Contact Info) Description 11/02/2021 10:00 AM CDT Office Visit [facility] #2 [place] [address] Kj Merlos MD #[address] [address] Physical exam, annual (Adult) (Primary Dx); Gastroesophageal reflux disease without esophagitis Discharge Disposition: Discharged to home or Selfcare [...] PM CDT Legal Sex Female 2:47 AM GEOTHERMAL TECHNICIAN Gender Identity Female 11/25/2022 4:06 PM CDT [...] AM CDT documented as of this encounter Last Filed Vital Signs Vital Sign Reading Time Taken Comments Blood Pressure 124/64 11/02/2021 10:12 AM CDT Pulse 96 11/02/2021 10:12 AM CDT Temperature 36.1 ??C (97 ??F) 11/02/2021 10:12 AM CDT Respiratory Rate 16 11/02/2021 10:12 AM CDT Oxygen Saturation 99% 11/02/2021 10:12 AM CDT Inhaled Oxygen Concentration - - Weight 97 kg (213 lb 12.8 oz) 11/02/2021 10:12 A M CDT Height 162.6 cm (5' 4 ) 11/02/2021 10:12 AM CDT Body Mass Index 36.7 11/02/2021 10:12 AM CDT documented in this encounter Progress Notes * Julián Lewis, GRANT - 11/02/2021 10:00 AM CDT Esther Day, 30 y.o., female is here for Preventive Care (Yearly physical) Medication Refills: Patient reports/denies need for medication refills. Orders Pended: no Requested Prescriptions No prescriptions requested or ordered in this encounter Home Medications Medication Sig Start Date End Date Taking? Authorizing Provider Acetaminophen (TYLENOL PO) Take 650 mg by mouth every 4 hours as needed. Patient not taking: Reported on 11/02/2021 Provider, MD Sunita famotidine (PEPCID) 20 MG Tablet Take 1 Tablet by mouth 2 times daily. Patient not taking: Reported on 11/02/2021 10/24/20 Paco Reagan APRN, SUZY glycopyrrolate (ROBINUL) 2 MG Tablet Take 2 Tablets by mouth 2 times daily as needed (excessive sweating). Patient not taking: No sig reported 10/24/20 Paco Reagan APRN, CNP HYDROcodone-acetaminophen (NORCO) 5-325 MG Tablet Take 1 Tablet by mouth every 8 hours as needed for Moderate or more severe pain or Severe pain. Patient not taking: Reported on 06/05/2021 04/09/21 Kj Merlos MD ibuprofen (MOTRIN) 800 MG Tablet Take 1 Tablet by mouth every 8 hours as needed for Moderate or more severe pain. Patient not taking: No sig reported 10/24/20 Paco Reagan APRN, CNP loratadine (CLARITIN) 10 MG Tablet Take 10 mg by mouth. Patient not taking: No sig reported 11/22/18 uSnita Bunch MD ondansetron (ZOFRAN) 4 MG Tablet Take 1 Tablet by mouth every 8 hours as needed for Nausea - 1st line. 06/06/21 Yes Kj Merlos MD predniSONE (DELTASONE) 20 MG Tablet TAKE 2 TABLETS BY MOUTH ONCE DAILY FOR 5 DAYS Patient not taking: Reported on 11/02/2021 10/26/21 Sunita Bunch MD promethazine (PHENERGAN) 25 MG Tablet TAKE 1 TABLET BY MOUTH EVERY 4 TO 6 HOURS Patient not taking: Reported on 11/02/2021 08/10/21 Sunita Bunch MD triamcinolone (KENALOG) 0.1 % Cream APPLY TOPICALLY TWICE A DAY FOR 7 DAYS 10/26/21 Yes Sunita Bunch MD venlafaxine (EFFEXOR-XR) 150 MG CAPSULE SR 24 HR Take 1 Capsule by mouth daily. Patient not taking: Reported on 11/02/2021 04/09/21 Kj Merlos MD There are no discontinued medications. I have [...] 3 - 3-dose series) Never done ??? Pap Smear Never done Orders Pended: no The following BPA's have been addressed with the patient today: Depression * Kj Merlos MD - 11/02/2021 10:00 AM CDT SUBJECTIVE: Esther Day is here to follow-up/ evaluation on her 1. Physical exam, annual (Adult) Esther Day says she has been feeling [...] RIGHT; Surgeon: Trent Blanton MD; Location: [facility] [place]; Service: Orthopaedic ??? EXPLORATORY OF ABDOMEN 2002 [...] [place]; Service: General ??? MYRINGOTOMY Bilateral 1989' ??? TONSILLECTOMY ??? UMBILICAL HERNIA REPAIR N/A 02/21/2021 Procedure: LAPAROSCOPIC UMBILICAL HERNIA REPAIR- NO MESH; Surgeon: Rm Butler MD; Location: [facility]; Service: General ??? WRIST GANGLION EXCISION Right 04/29/2018 Procedure: GANGLION CYST EXCISION REMOVAL RIGHT WRIST; Surgeon: Trent Blanton MD; Location: [facility]; Service: Orthopaedic Social History Tobacco Use ??? [...] her medication and denies medication side effects. preg Due 01/23/2022 Outpatient Medications Marked as Taking for the 11/02/21 encounter (Office Visit) with Kj Merlos MD Medication Sig Dispense Refill ??? ondansetron (ZOFRAN) 4 MG Tablet Take 1 Tablet by mouth every 8 hours as needed for Nausea - 1st line. 15 Tablet 0 ??? triamcinolone (KENALOG) 0.1 % Cream APPLY TOPICALLY TWICE A DAY FOR 7 DAYS Allergies Allergen Reactions ??? Augmentin [Amoxicillin-Pot Clavulanate] Rash and Itching ??? Ceclor [Cefaclor] Hives and Rash ??? Codeine Hives and Itching LABS Lab Results Component Value Date WBC 10.46 02/22/2021 HEMOGLOBIN 10.9 (L) 02/22/2021 HEMATOCRIT 34.9 (L) 02/22/2021 PLATELETCNT 353 02/22/2021 CHOLESTEROL 250 (H) 10/25/2020 TRIGLYCRIDES 395 (H) 10/25/2020 HDLCHOLESTE 35.6 (L) 10/25/2020 LDL 135 (H) 10/25/2020 [id number] 336 10/25/2020 FOLAT 11.2 10/25/2020 ESR 21 [...] y.o. female in no acute distress. Vitals: 11/02/21 1012 BP: 124/64 BP Location: Right Arm BP Position: Sitting BP Cuff Size: Regular Pulse: 96 Resp: 16 Temp: 97 ??F (36.1 ??C) TempSrc: Temporal SpO2: 99% Weight: 213 lb 12.8 oz (97 kg) Height: 5' 4 (1.626 m) Body mass index is 36.7 kg/m??. BP Readings from Last 3 Encounters: 11/02/21 124/64 04/09/21 128/68 03/15/21 120/68 Wt Readings from Last 3 Encounters: 11/02/21 213 lb 12.8 oz (97 kg) 04/09/21 219 lb (99.3 kg) 03/15/21 219 lb (99.3 kg) SKIN: Warm and dry. EYES: . Sclerae are clear. NECK: Supple. No thyromegaly or adenopathy, no bruits. BACK: No spine or costovertebral angle tenderness. LUNGS: Clear to auscultation and percussion. HEART:normal rate, regular rhythm, normal S1, S2, no rubs, clicks or gallops. ABDOMEN: Bowel sounds are active. No masses. No organomegaly, no tenderness. No bruits. EXTREMITIES: No edema. Gravid uterus Uterus aboce umbilicus Gait mary Juan Carlos 2/ ASSESSMENT AND PLAN Diagnoses and all orders for this visit: Physical exam, annual (Adult) Other orders - Discontinue: predniSONE (DELTASONE) 20 MG Tablet; TAKE 2 TABLETS BY MOUTH ONCE DAILY FOR 5 DAYS (Patient not taking: Reported on 11/02/2021) - Discontinue: promethazine (PHENERGAN) 25 MG Tablet; TAKE 1 TABLET BY MOUTH EVERY 4 TO 6 HOURS (Patient not taking: Reported on 11/02/2021) - triamcinolone (KENALOG) 0.1 % Cream; APPLY TOPICALLY TWICE A DAY FOR 7 DAYS Medications Discontinued During This Encounter Medication Reason ??? Acetaminophen (TYLENOL PO) Error ??? famotidine (PEPCID) 20 MG Tablet Error ??? glycopyrrolate (ROBINUL) 2 MG Tablet Error ??? HYDROcodone-acetaminophen (NORCO) 5-325 MG Tablet Error ??? loratadine (CLARITIN) 10 MG Tablet Error ??? predniSONE (DELTASONE) 20 MG Tablet Med List Clean Up ??? promethazine (PHENERGAN) 25 MG Tablet Error ??? venlafaxine (EFFEXOR-XR) 150 MG CAPSULE SR 24 HR Error ??? ibuprofen (MOTRIN) 800 MG Tablet Error No follow-ups on file. Continue current medication After visit summary discussed with patient. Documentation for this visit on 11/02/2021 was completed using a template. I have seen and examined the patient. Everything documented was personally performed at this visit with the necessary additions, deletions and changes made as appropriate. : Has global account director. Not having issues. Due 02/02. Urged her to discuss control. She says will be last kid umibilical hernia: Reducible. Told her call if changes Gerd: No meds right now. Urged flu shot in fall documented in this encounter Plan of Treatment Upcoming Encounters Date Type Department Care Team (Late st Contact Info) Description 04/28/2024 10:00 AM GEOTHERMAL TECHNICIAN [facility] Stress 1 [place] [address] Karen Andino APRN, FURNACE KEEPER #2 [place] [address] Discharge Disposition: Discharged to home or Selfcare 06/02/2024 10:00 AM GEOTHERMAL TECHNICIAN Office Visit [facility] - Family [facility] #2 [place] [address] Kelin Castle, [facility] #2 [place] [address] documented as of this encounter Visit Diagnoses Diagnosis Physical exam, annual (Adult)- Primary Routine general medical examination at a health care facility Gastroesophageal reflux disease without esophagitis Esophageal reflux documented in this encounter Additional Health Concerns Assessment Noted Time PHQ-9 Depression Total Score: 1 11/03/19 22 10:00 AM CDT documented as of this encounter Care Teams Machine Tool Mechanic Relationship Specialty Start Date End Date Kj Merlos MD #[address] [address] PCP - General Family Medicine 04/09/21 Paco Reagan APRN, FURNACE KEEPER #[address] [address] Nurse Practitioner Advanced Practice Nurse 10/24/20 documented as of this encounter
--- OUTSIDE RECORDS SUMMARY | 2024-04-17 13:52 | XMS_ITS | Encounter Summary ---
Author Organization [facility] Address [address] [place] [address] Phone Care Team Providers Care Solderer Electronic Name Role Phone Paco Reagan APRN, DEICER INSPECTOR ELECTRIC Unavailable Kj Merlos MD Primary Care Provider Encounter Details Date Type Department Care Team (Late st Contact Info) Description 04/09/2021 Telephone [facility] #2 [place] [address] Kj Merlos MD #[address] [address] Social History Tobacco Use Types Packs/Day Years [...] CDT Legal Sex Female 2:47 AM SENIOR STACK ENGINEER Gender Identity Female 11/25/2022 4:06 PM [...] COVID-19? No / Unsure 04/09/2021 1:04 PM SENIOR STACK ENGINEER documented as of this encounter Miscellaneous Notes * Telephone Encounter - Kj Merlos MD - 04/09/2021 1:03 PM CST reviewed OR STACK ENGINEER documented in this encounter Plan of Treatment Upcoming Encounters Date Type Department Care Team (Late st Contact Info) Description 04/28/2024 10:00 AM SENIOR STACK ENGINEER Appointment [facility] Cardiology Stress [address] [place] [address] Karen Andino APRN, DEICER INSPECTOR ELECTRIC #[address] [place] [address] Discharge Disposition: Discharged to home or Selfcare 06/02/2024 10:00 AM SENIOR STACK ENGINEER Office Visit [facility] [place] #2 [place] [address] Kelin Castle PAC [address] [place] [address] documented as of this encounter Visit Diagnoses Not on filedocumented in this encounter Care Teams Solderer Electronic Relationship Specialty Start Date End Date Kj Merlos MD #[address] [address] PCP - General Family Medicine 04/09/21 Paco Reagan APRN, DEICER INSPECTOR ELECTRIC #[address] [address] Nurse Practitioner Advanced Practice Nurse 10/24/20 documented as of this encounter
--- OUTSIDE RECORDS SUMMARY | 2024-04-17 13:53 | XMS_ITS | Encounter Summary ---
Author Organization [facility] Address [address] [place] [address] Phone Care Team Providers Care Sterile Proc Tech Name Role Phone Ousmane Gan MD Primary Care Provider [phone] Paco Reagan CROP NUTRITION SCIENTIST, SUPERVISOR SHOP Unavailable Reason for Visit * Reason Comments Abdominal Pain * Auth/Cert Specialty Diagnoses / Procedures Referred By Contrebecca t Referred To Contact Diagnoses Acute appendicitis Umbilical hernia without obstruction and without gangrene Referral ID Status Reason Start Date Expiration Date Visits Re quested Visits Authorized [id number] 1 1 Encounter Details Date Type Department Care Team (Late st Contact Info) Description 02/20/2021 7:42 PM LENS ASSORTER - 02/22/2021 11:55 AM LENS ASSORTER Emergency [facility] [address] [address] [place] [address] Noe Crews, PAC [address] [place] [address] Sarah Hoffman MD [address] [place] [address] Acute appendicitis Discharge Disposition: Discharged to home or Selfcare [...] PM CDT Legal Sex Female 2:47 AM LENS ASSORTER Gender Identity Female 11/25/2022 4:06 PM CDT Sexual Orientation Not on file 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 No / Unsure 02/21/2021 9:48 AM LENS ASSORTER documented as of this encounter Last Filed Vital Signs Vital Sign Reading Time Taken Comments Blood Pressure 125/77 02/22/2021 7:20 AM LENS ASSORTER Pulse 82 02/22/2021 7:20 AM LENS ASSORTER Temperature 36.1 ??C (97 ??F) 02/22/2021 7:20 AM LENS ASSORTER Respiratory Rate 20 02/22/2021 7:20 AM LENS ASSORTER Oxygen Saturation 99% 02/22/2021 7:20 AM LENS ASSORTER Inhaled Oxygen Concentration - - Weight 100.2 kg (220 lb 14.4 oz) 2020 12:26 AM LENS ASSORTER Height 152.4 cm (5') 02/21/2021 12:26 AM LENS ASSORTER Body Mass Index 43.14 02/21/2021 12:26 AM LENS ASSORTER documented in this encounter Discharge Summaries * Sarah Hoffman MD - 02/22/2021 10:08 AM CST [facility] DISCHARGE SUMMARY Name: Esther Day Age: 30 y.o. : 1990 Attending Physician: Sarah Hoffman MD Admission Date/Time: 02/20/2021 Expected Discharge Date: 02/22/2021 Primary Care Physician: Ousmane Gan MD Discharging Provider: Sarah Hoffman MD INSTRUCTIONS FOR PHYSICIANS ON FOLLOW UP AFTER DISCHARGE: Follow-up with PCP: Ousmane Gan MD in 1 week Recommended Tests/Labs to order at follow-up: none Pending Labs/Path/Imaging: Cultures: urine cx-- 02/20/2021 Discharge Instructions: Discharge Condition: improved Disposition: Home Diet: Regular Diet Activity: as per postoperative management instructions per general surgeon Primary Discharge Diagnosis: Acute appendicitis, uti, anxiety, depression, GERD, umbiliical hernia without obstruction and without gangrene Discharge Diagnoses: as above Active Hospital Problems Diagnosis Date Noted ??? Tobacco dependence syndrome [F17.200] 02/20/2021 ??? Umbilical hernia without obstruction and without gangrene [K42.9] 02/20/2021 ??? Anxiety and depression [F41.9, F32.A] 10/24/2020 ??? Morbid obesity (HCC) [E66.01] 10/24/2020 ??? Gastroesophageal reflux disease without esophagitis [K21.9] 04/03/2016 Resolved Hospital Problems Diagnosis Date Noted Date Resolved ??? Acute appendicitis [K35.80] 02/20/2021 02/22/2021 Admitting Diagnoses: as above HOSPITAL COURSE: Esther Day was admitted 02/20/2021 with Acute appendicitis . Surgeries performed during stay: Procedure(s): LAPAROSCOPIC APPENDECTOMY LAPAROSCOPIC UMBILICAL HERNIA REPAIR- NO MESH Consults: Treatment Team: Consulting Physician: Rm Butler MD Patient was admitted on 02/20/2021 for evaluation of abdominal pains. Lab and imaging studies have identified acute appendicitis. General surgery has taken patient to OR for appendectomy procedure. Patient has tolerated procedure well, and she has been given post operative management instructions per general surgeon. Patient will have follow up of urine culture (02/20/2021) with PCP, and she willbe provided prescription for Levaquin *3 days. Exam Day of Discharge: Temp Av.4 ??F (36.3 ??C) Min: 96.8 ??F (36 ??C) Max: 97.9 ??F (36.6 ??C) BP Min: 112/59 Max: 145/87 Pulse Av Min: 77 Max: 93 Resp Av.3 Min: 20 Max: 24 SpO2 Av.4 % Min: 95 % Max: 99 % O2 Flow Rate (l/min): 2 l/min General: alert, and in no distress. Neck: No JVD. CVS: RRR, no murmur. Chest: clear to auscultation, no wheezes, rales or rhonchi, symmetric air entry. Heart: regular rate and rhythm, S1, S2 normal, no murmur, click, rub or gallop Abdominal: surgical site intact, no sign of bleeding/ swelling/ sign of infection, soft, nontender,nondistended. Positive Bowel sounds. Extremities: no edema, no clubbing or cyanosis. Urology: deferred Lab / Imaging Review: Lab Results Component Value Date WBC 10.46 02/22/2021 HEMOGLOBIN 10.9 (L) 02/22/2021 HEMATOCRIT 34.9 (L) 02/22/2021 PLATELETCNT 353 02/22/2021 MCV 86.8 02/22/2021 Lab Results Component Value Date SODIUM 140 02/22/2021 POTASSIUM 4.0 02/22/2021 CHLORIDE 105 02/22/2021 CO2VEN 23 02/22/2021 ANIONGAP 16.0 02/22/2021 GLUCOSE 94 02/22/2021 BUN 8 02/22/2021 CREATININE 0.50 (L) 02/22/2021 BCRATIO8 16 02/22/2021 TOTALPROTEIN 6.2 02/21/2021 ALBUMIN 3.9 02/21/2021 CALCIUM 9.0 02/22/2021 TBIL 0.4 02/21/2021 SGOTAST 23 02/21/2021 SGPTALT 21 02/21/2021 ALKALINEPHO 75 02/21/2021 GFRNA >60 02/22/2021 GFRA >60 02/22/2021 No results found for: GLUCOSEPOCT No results found for: INR, PTP No results found for: HGBA1C Lab Results Component Value Date [id number] 336 10/25/2020 No results found for: CPK, CPKI, CKMB, CKMBNI, CKMBPOCT, CKMBRELINDX, TROPONINI, POCTRP No results found for: FERRITIN No components found for: FOLATE No results found for: PHARTERIAL, PO2ART, DED4UFJ, CO2ART, O2ART No results found for: LACACIDPOCT, LACTICA CT ABDOMEN PELVIS W/ CONTRAST Result Date: 02/20/2021 IMPRESSION: Umbilical hernia containing fat, vasculature, fluid and fat stranding. No bowel involvement. Vascular congestion/strangulation suggested. Follow-up. Dilated, fluid-filled appendix with subtle mucosal enhancement suggested. There is no periappendiceal inflammation given the size of the ap pendix. Consider developing infection or inflammatory change although a developing mucocele or other pathology should be considered at the appendix. Follow-up is recommended. Mild thickening of the terminal ileal wall with mucosal enhancement suggested. Question developing infection or inflammatory change. Follow-up is recommended. Right lower quadrant lymphadenopathy is nonspecific within the mesentery. Suspected atelectatic change at the lower lungs. Prominent liver size. DISCHARGE MEDICATION LIST: Medication List START taking these medications HYDROcodone-acetaminophen 5-325 MG Tabs Commonly known as: NORCO Take 1 Tablet by mouth every 8 hours as needed for Moderate or more severe pain or Severe pain. levoFLOXacin 750 MG Tabs Commonly known as: LEVAQUIN Take 1 Tablet by mouth daily for 3 days. CONTINUE taking these medications ergocalciferol 27583 UNIT Caps Commonly known as: VITAMIN D Take 1 Capsule by mouth once a week. famotidine 20 MG Tabs Commonly known as: PEPCID Take 1 Tablet by mouth 2 times daily. glycopyrrolate 2 MG Tabs Commonly known as: ROBINUL Take 2 Tablets by mouth 2 times daily as needed (excessive sweating). ibuprofen 800 MG Tabs Commonly known as: MOTRIN Take 1 Tablet by mouth every 8 hours as needed for Moderate or more severe pain. loratadine 10 MG Tabs Commonly known as: CLARITIN triamcinolone 0.1 % Crea Commonly known as: KENALOG TYLENOL PO venlafaxine 150 MG Cap-sr-24hr Commonly known as: EFFEXOR-XR Take 1 Capsule by mouth daily. Where to Get Your Medications Information about where to get these medications is not yet available Ask your nurse or doctor about these medications ?? HYDROcodone-acetaminophen 5-325 MG Tabs ?? levoFLOXacin 750 MG Tabs Time spent on interview, examination, final orders, recommendations, and care coordination for thishospital discharge: Greater than 30 minutes spent in coordinating care--- 33 minutes Thank you very much for allowing the [facility] Adult Hospitalist Service to participate in the care of this patient. If you have any questions, please don't hesitate to call. Signed: Sarah Hoffman MD, 02/22/2021, 10:08 AM LENS ASSORTER ASSORTER documented in this encounter Discharge Instructions * Appointments* Sarah Hoffman MD - 02/22/2021 7:39 AM LENS ASSORTER Postoperative management recommendations: Keep surgical site clean and dry, no twisting or bending at surgical site for next 4 weeks, no lifting of weight greater than 20 lb for the next 4 weeks. Further recommendations as per General Surgeon. Pending follow-up evaluation with general surgeon in 2 weeks Pending follow up of urine culture (02/20/2021) results with PCP within 1 week Complete course of oral antibiotics with Levaquin 750 mg PO Daily *3 days ASSORTER ASSORTER documented in this encounter Medications at Time of Discharge Acetaminophen (TYLENOL PO) Take 650 mg by mouth every 4 hours as needed. 2 ergocalciferol (VITAMIN D) 88684 UNIT CapsuleIndications: Vitamin D deficiency Take 1 Capsule by mouth once a week. 12 Capsule 10/25/2020 1 famotidine (PEPCID) 20 MG TabletIndications:G astroesophageal reflux [...] severe pain or Severe pain. 15 Tablet 02/22/2021 1 ibuprofen (MOTRIN) 800 MG TabletIndications:R ight elbow pain,Carpal tunnel syndrome of right wrist,Strain of neck muscle, initial encounter Take 1 Tablet by mouth every 8 hours as needed for Moderate or more severe pain. 270 Tablet 1 10/24/2020 2 levoFLOXacin (LEVAQUIN) 750 MG Tablet Take 1 Tablet by mouth daily for 3 days. 3 Tablet 02/22/2021 1 loratadine (CLARITIN) 10 MG Tablet Take 10 mg by mouth. 11/22/2018 2 venlafaxine (EFFEXOR-XR) 150 MG CAPSULE SR 24 HRIndications:Anxie ty and depression Take 1 Capsule by mouth daily. 90 Capsule 1 10/24/2020 1 documented as of this encounter Progress Notes * Rm Butler MD - 02/22/2021 10:03 AM CST Images from the original note were not included. POST-OPERATIVE PROGRESS NOTE Esther Day is a 30 y.o. female at Hospital LOS: 1 day 1 Day Post-Op Procedure(s): LAPAROSCOPIC APPENDECTOMY LAPAROSCOPIC UMBILICAL HERNIA REPAIR- NO MESH Assessment: Condition: In stable condition. Plan: Discharge home. Encourage ambulation. Start/continue incentive spirometry. Regular diet. Start oralanalgesics and resume oral medications. Follow-up in office in 2 weeks No heavy lifting, nothing heavier than 10 lb for 6 weeks after surgery Use abdominal binder for comfort Subjective: Diet: Adequate intake. Patient reports no nausea or vomiting. Activity level: Returning to normal. Pain control: Well controlled. Active Problems: Gastroesophageal reflux disease without esophagitis Morbid obesity (HCC) Anxiety and depression Tobacco dependence syndrome Umbilical hernia without obstruction and without gangrene Current Facility-Administered Medications: ??? 0.9 % sodium chloride solution ??? acetaminophen (TYLENOL) tablet 650 mg OR acetaminophen (TYLENOL) suppository 650 mg ? ? aluminum & magnesium hydroxide-simethicone (MAALOX, MYLANTA) 200-200-20 MG/5ML SUSP 20 mL ??? calcium carbonate (TUMS) chewable tablet 1,000 mg ??? diphenhydrAMINE (BENADRYL) capsule 25 mg ??? famotidine (PEPCID) injection 10 mg ??? HYDROcodone-acetaminophen (NORCO) 5-325 MG per tablet 1 Tablet ??? HYDROmorphone (DILAUDID) injection 0.5 mg ??? ketorolac (TORADOL) injection 15 mg ??? ketorolac (TORADOL) injection 15 mg ??? levoFLOXacin (LEVAQUIN) tablet 750 mg ??? loratadine (CLARITIN) tablet 10 mg ??? magnesium hydroxide (MILK OF MAGNESIA) 400 MG/5ML suspension 30 mL ??? melatonin tablet 6 mg ??? metoclopramide (REGLAN) injection 5 mg ??? nicotine (NICODERM CQ) 14 MG/24HR patch 1 Patch ??? ondansetron (ZOFRAN-ODT) disintegrating tablet 4 mg OR ondansetron (ZOFRAN) injection 4 mg ??? polyethylene glycol (GLYCOLAX, MIRALAX) packet 17 g ??? Prochlorperazine Edisylate (COMPAZINE) injection 5 mg ??? TRANSDERMAL PATCH ACKNOWLEDGEMENT ??? venlafaxine (EFFEXOR-XR) XR capsule 150 mg ALLERGIES: Allergies Description Type Start Date End Date Comment Verified Die Drawing Checker Amoxicillin-Pot Clavulanate Allergy 11-Mar-2016 Severity: High Reactions: Rash, Itching Jonnie Beyer RN Cefaclor Allergy 11-Mar-2016 Severity: High Reactions: Hives, Rash Jonnie Beyer RN Codeine Topical 25-Dec-2018 Severity: High Reactions: Hives, Itching Cangelosi Carly Robles RN Objective: Vital signs (most recent): Blood pressure 125/77, pulse 82, temperature 97 ??F (36.1 ??C), resp. rate 20, height 5' (1.524 m), weight 220 lb 14.4 oz (100.2 kg), last menstrual period 01/22/2021, [id number] %, unknown if currently . General appearance: Comfortable. Lungs: Normal respiratory rate and normal effort. Heart: Normal rate. Regular rhythm. Abdomen: Abdomen is soft. Tenderness: There is tenderness in the incisional area. Wound: Clean. Extremities: There is normal range of motion. Neurological: The patient is alert and oriented to person, place and time. Pupils are equal, round,and reactive to light. Right pupil is reactive. Left pupil is reactive. Intake/Output Summary (Last 24 hours) at 02/22/2021 1003 Last data filed at 02/22/2021 0800 Gross per 24 hour Intake 5504.09 ml Output 555 ml Net 4949.09 ml By: Rm Butler MD; 02/22/2021, 10:03 AM LENS ASSORTER Attending Physician: Sarah Hoffman MD Primary Care Physician: Ousmane Gan MD ASSORTER * Sarah Hoffman MD - 02/21/2021 6:11 PM CST [facility] INPATIENT DAILY PROGRESS NOTE Esther Day is a 30 y.o. female at Hospital LOS: 22 hours Assessment: Active Hospital Problems Diagnosis Date Noted ??? Tobacco dependence syndrome 02/20/2021 ??? Umbilical hernia without obstruction and without gangrene 02/20/2021 ??? Acute appendicitis 02/20/2021 ??? Anxiety and depression 10/24/2020 ??? Morbid obesity (HCC) 10/24/2020 ??? Gastroesophageal reflux disease without esophagitis 04/03/2016 Resolved Hospital Problems No resolved problems to display. Vitals: 02/21/21 1500 02/21/21 1600 02/21/21 1700 02/21/21 1800 Temp: 97.2 ??F (36.2 ??C) 96.8 ??F (36 ??C) 97.9 ??F (36.6 ??C) 97.7 ??F (36.5 ??C) TempSrc: Tympanic Tympanic Tympanic Tympanic Pulse: 83 84 92 93 Resp: 20 20 20 BP: 112/85 140/83 145/87 126/67 Height: Weight: SpO2: 95% 96% 95% 97% I/O last 3 completed shifts: In: 4.1 [I.V.:4.1] Out: 555 [Urine:550; Blood:5] Plan: Acute appendicitis -CT revealed dilated, fluid-filled appendix with subtle mucosal enhancement -On Levaquin -Surgery consulted, appreciate recommendations -Pain control -Antiemetics -NPO 02/21/2021 ---patient has been seen just prior to undergoing appendectomy. Continue current management and reassess postoperatively Umbilical hernia -CT revealed umbilical hernia containing fat, vasculature, fluid and fat stranding. No bowel involvement; Vascular congestion/strangulation suggested. -Surgery consulted, appreciate recommendations -Pain control -Antiemetics -NPO ?? GERD -Convert to IV PPI ?? Anxiety/Depression -Continue home dose medications ?? Tobacco dependence syndrome -Nicotine patch ordered -Encouraged smoking cessation ?? Morbid obesity -BMI= 43.14 -Weight loss education ? Code Status: CPR-Full Treatment?? DVT Prophylaxis: Sequential Compression Devices Consult with: Surgery Subjective: Interval History: Patient seen at bedside. At present time, mild pain symptoms persist on right lower quadrant of abdomen. Patient had been evaluated shortly prior to undergoing appendectomy procedure. Review of Systems: A 14 point comprehensive review of systems was negative, except as documented in HPI. Objective: Exam: General: alert, oriented and in no acute distress. Skin: normal coloration and turgor, no rashes. HEENT: normocephalic, atraumatic. Pupils equal, round and reactive to light. Extraocular movements intact. Oronasopharynx pink and moist, no lesion or exudate. Neck: Supple. No JVD, lymphadenopathy thyromegaly or carotid bruits auscultated. CVS: RRR, S1/S2 normal, no murmurs, gallops or rubs. Chest: clear to auscultation, no wheezes, rales or rhonchi, symmetric air entry and normal respiratory effort. Abdominal: Soft, tenderness right lower quadrant, no skin color change, positive bowel sounds, nondistended. Extremities: no edema, no clubbing or cyanosis. Neuro: CN 2-12 grossly intact, normal speech, no focal findings or movement disorder noted. Gait not tested.. Lab Results: No results found for: PHARTERIAL, PO2ART, QPH1EFR, CO2ART, O2ART Lab Results Component Value Date WBC 6.40 02/21/2021 HEMOGLOBIN 10.9 (L) 02/21/2021 HEMATOCRIT 35.0 (L) 02/21/2021 PLATELETCNT 297 02/21/2021 MCV 87.5 02/21/2021 Lab Results Component Value Date SODIUM 140 02/21/2021 POTASSIUM 4.0 02/21/2021 CHLORIDE 107 02/21/2021 CO2VEN 25 02/21/2021 ANIONGAP 12.0 02/21/2021 GLUCOSE 90 02/21/2021 BUN 9 02/21/2021 CREATININE 0.58 (L) 02/21/2021 BCRATIO8 16 02/21/2021 TOTALPROTEIN 6.2 02/21/2021 ALBUMIN 3.9 02/21/2021 CALCIUM 8.4 (L) 02/21/2021 TBIL 0.4 02/21/2021 SGOTAST 23 02/21/2021 SGPTALT 21 02/21/2021 ALKALINEPHO 75 02/21/2021 GFRNA >60 02/21/2021 GFRA >60 02/21/2021 No results found for: CPK, CPKI, CKMB, CKMBNI, CKMBPOCT, CKMBRELINDX, TROPONINI, POCTRP No components found for: FOLATE No results found for: LACACIDPOCT, LACTICA Lab Results Component Value Date [id number] 336 10/25/2020 No results found for: FERRITIN No results found for: GLUCOSEPOCT EKG: No results found. Imaging: CT ABDOMEN PELVIS W/ CONTRAST Result Date: 02/20/2021 IMPRESSION: Umbilical hernia containing fat, vasculature, fluid and fat stranding. No bowel involvement. Vascular congestion/strangulation suggested. Follow-up. Dilated, fluid-filled appendix with subtle mucosal enhancement suggested. There is no periappendiceal inflammation given the size of the ap pendix. Consider developing infection or inflammatory change although a developing mucocele or other pathology should be considered at the appendix. Follow-up is recommended. Mild thickening of the terminal ileal wall with mucosal enhancement suggested. Question developing infection or inflammatory change. Follow-up is recommended. Right lower quadrant lymphadenopathy is nonspecific within the mesentery. Suspected atelectatic change at the lower lungs. Prominent liver size. By: Sarah Hoffman MD, 02/21/2021 6:11 PM LENS ASSORTER ASSORTER documented in this encounter H&P Notes * Edilma Longo APRN, CNP - 02/20/2021 11:08 PM CST Images from the original note were not included. HOSPITALIST ADMISSION HISTORY & PHYSICAL EXAM PATIENT NAME: Esther Day, : 1990, MR#[id number] CHIEF COMPLAINT Abd pain HPI Esther Day is a 30 y.o. female with a pmhx of morbid obesity, tobacco dependence, anxiety, and GERD who presented to the ED with c/o abdominal pain x1 month, but worsened over the last 3 days. Patient has a known umbilical hernia. Patient describes the pain as a constant dull ache in her right upper quadrant, left upper quadrant, and umbilical area with intermittent bouts of 10/10 sharp pain. Patient reports associated night sweats, decreased appetite, fatigue, headache, chest tightness, nonproductive cough, sinus congestion, nausea, weakness, dizziness, and lightheadedness. CT of the abdomen revealed acute appendicitis and did no umbilical hernia with suggested vascular congestion/str angulation. Surgery consult was obtained and patient was admitted for management of CT findings. HOME MEDICATIONS: Prior to Admission Medications Prescriptions Last Dose Informant Patient Reported? Taking? Acetaminophen (TYLENOL PO) 01/21/2021 at Unknown time Yes Yes Sig: Take 650 mg by mouth every 4 hours as needed. ergocalciferol (VITAMIN D) 41545 UNIT Capsule Not Taking at Unknown time No No Sig: Take 1 Capsule by mouth once a week. Patient not taking: Reported on 02/21/2021 famotidine (PEPCID) 20 MG Tablet 02/20/2021 at Unknown time No Yes Sig: Take 1 Tablet by mouth 2 times daily. glycopyrrolate (ROBINUL) 2 MG Tablet 02/14/2021 at Unknown time No Yes Sig: Take 2 Tablets by mouth 2 times daily as needed (excessive sweating). ibuprofen (MOTRIN) 800 MG Tablet > Month at Unknown time No Yes Sig: Take 1 Tablet by mouth every 8 hours as needed for Moderate or more severe pain. loratadine (CLARITIN) 10 MG Tablet 02/20/2021 at Unknown time Yes Yes Sig: Take 10 mg by mouth. triamcinolone (KENALOG) 0.1 % Cream Not Taking at Unknown time Yes No Sig: APPLY TOPICALLY TWICE DAILY Patient not taking: Reported on 02/21/2021 venlafaxine (EFFEXOR-XR) 150 MG CAPSULE SR 24 HR 02/20/2021 at Unknown time No Yes Sig: Take 1 Capsule by mouth daily. Facility-Administered Medications: None ALLERGIES: Allergies Description Type Start Date End Date Comment Verified Die Drawing Checker Amoxicillin-Pot Clavulanate Allergy 11-Mar-2016 Severity: High Reactions: Rash, Itching Jonnie Beyer RN Cefaclor Allergy 11-Mar-2016 Severity: High Reactions: Hives, Rash Jonnie Beyer RN Codeine Topical 25-Dec-2018 Severity: High Reactions: Hives, Itching Cangelosi Carly Robles RN REVIEW OF SYSTEMS: Review of Systems Constitutional: Positive for diaphoresis and malaise/fatigue. Negative for chills and fever. Decreased appetite HENT: Positive for congestion. Eyes: Negative for blurred vision and double vision. Respiratory: Positive for cough. Negative for shortness of breath. Cardiovascular: Positive for chest pain. Negative for leg swelling. Gastrointestinal: Positive for abdominal pain and nausea. Negative for constipation, diarrhea and vomiting. Genitourinary: Negative for dysuria, frequency and urgency. Musculoskeletal: Negative for falls and myalgias. Neurological: Positive for dizziness, weakness and headaches. Negative for tingling, sensory changeand loss of consciousness. PAST MEDICAL HISTORY She has a past medical history of Abscess of face, Acid reflux, Allergic rhinitis, Anxiety, Chronicback pain, GERD (gastroesophageal reflux disease), Headache, History of seizure, IBS (irritable bowel syndrome), and Migraines. PAST SURGICAL HISTORY: has a past surgical history that includes exploratory of abdomen (2001); Myringotomy (Bilateral, ); Lipoma Resection (Left, 07/04/2017); Tonsillectomy (); Carpal Tunnel Release (Right, 04/29/2018); Wrist Ganglion Excision (Right, 04/29/2018); and Lipoma Resection (Bilateral, 02/18/2019). FAMILY HISTORY: family history includes Anxiety disorder in her mother; Cancer in her maternal grandmother; Liver Cancer in her maternal grandmother; No Known Problems in her daughter, daughter, and maternal grandfather; Seizures in her maternal uncle and maternal uncle; Skin Cancer in her maternal grandmother. SOCIAL HISTORY : reports that she has been smoking cigarettes. She has smoked for the past 15.00 years. She has never used smokeless tobacco. She reports current alcohol use. She reports current drug use. Drug: Marijuana. PHYSICAL EXAM : VITALS: BP (!) 137/117 Pulse 74 Temp 97.6 ??F (36.4 ??C) (Tympanic) Resp 20 Ht 5' (1.524 m) Wt 220 lb 14.4 oz (100.2 kg) LMP 01/22/2021 SpO2 100% BMI 43.14 kg/m?? Temp (24hrs), Av.2 ??F (36.8 ??C), Min:97.6 ??F (36.4 ??C), Max:98.8 ??F (37.1 ??C) Weight: Wt Readings from Last 1 Encounters: 02/21/21 220 lb 14.4 oz (100.2 kg) Body mass index is 43.14 kg/m??. EXAM: Physical Exam Vitals and nursing note reviewed. Constitutional: Appearance: Normal appearance. She is morbidly obese. Comments: Pleasant, adult female, resting in bed in no acute distress HENT: Head: Normocephalic and atraumatic. Eyes: General: Lids are normal. Conjunctiva/sclera: Conjunctivae normal. Neck: Trachea: Trachea normal. Cardiovascular: Rate and Rhythm: Normal rate and regular rhythm. Pulses: Normal pulses. Heart sounds: Normal heart sounds. Pulmonary: Effort: Pulmonary effort is normal. Breath sounds: Normal breath sounds. Abdominal: General: Bowel sounds are normal. Palpations: Abdomen is soft. Tenderness: There is abdominal tenderness in the right upper quadrant, right lower quadrant and periumbilical area. Hernia: A hernia is present. Hernia is present in the umbilical area. Musculoskeletal: General: Normal range of motion. Cervical back: Normal range of motion. Skin: General: Skin is warm and dry. Neurological: Mental Status: She is alert and oriented to person, place, and time. Motor: Motor function is intact. Psychiatric: Mood and Affect: Mood and affect normal. Cognition and Memory: Memory normal. Judgment: Judgment normal. DATA REVIEW : CT ABDOMEN PELVIS W/ CONTRAST Result Date: 02/20/2021 IMPRESSION: Umbilical hernia containing fat, vasculature, fluid and fat stranding. No bowel involvement. Vascular congestion/strangulation suggested. Follow-up. Dilated, fluid-filled appendix with subtle mucosal enhancement suggested. There is no periappendiceal inflammation given the size of the ap pendix. Consider developing infection or inflammatory change although a developing mucocele or other pathology should be considered at the appendix. Follow-up is recommended. Mild thickening of the terminal ileal wall with mucosal enhancement suggested. Question developing infection or inflammatory change. Follow-up is recommended. Right lower quadrant lymphadenopathy is nonspecific within the mesentery. Suspected atelectatic change at the lower lungs. Prominent liver size. UA: Results for orders placed or performed during the hospital encounter of 02/20/21 Urinalysis Reflex if Indicated by Abnormal Results Result Value Ref Range Status SPECIFIC GRAVITY 1.010 1.003 - 1.030 Final URINE PH 6.5 5.0 - 9.0 Final WBC ESTERASE 25 /uL (A) Negative Final NITRITE Negative Negative Final PROTEIN, RANDOM URINE Negative Negative Final URINE GLUCOSE, QUAL Negative Negative Final URINE KETONES Negative Negative Final UROBILINOGEN Normal Normal mg/dL Final URINE BLOOD Negative Negative jerardo/ul Final URINALYSIS COLOR Yellow Final URINALYSIS CLARITY Clear Final WBC (Urine) 11-20 (A) Negative, 0-5 /hpf Final URINE RBC'S 0-2 Negative, 0-2 /hpf Final EPITHELIAL CELLS Large amount squamous /lpf Final BACTERIA, URINE Many (A) Negative /hpf Final CBC: Lab Results Component Value Date WBC 7.99 02/20/2021 RBC 4.20 02/20/2021 HEMOGLOBIN 11.3 (L) 02/20/2021 HEMATOCRIT 36.0 02/20/2021 PLATELETCNT 337 02/20/2021 CMP: Lab Results Component Value Date SODIUM 136 02/20/2021 POTASSIUM 3.6 02/20/2021 CHLORIDE 100 02/20/2021 CO2VEN 24 02/20/2021 ANIONGAP 15.6 02/20/2021 GLUCOSE 97 02/20/2021 BUN 11 02/20/2021 CREATININE 0.58 (L) 02/20/2021 BCRATIO8 19 02/20/2021 TOTALPROTEIN 6.8 02/20/2021 ALBUMIN 4.3 02/20/2021 CALCIUM 8.8 (L) 02/20/2021 TBIL 0.3 02/20/2021 SGPTALT 18 02/20/2021 ALKALINEPHO 81 02/20/2021 GFRNA >60 02/20/2021 GFRA >60 02/20/2021 Outside reports reviewed: ER records, radiology reports, lab reports, xray reports, historical medical records. ASSESSMENT: Active Hospital Problems Diagnosis Date Noted ??? Tobacco dependence syndrome 02/20/2021 ??? Umbilical hernia without obstruction and without gangrene 02/20/2021 ??? Acute appendicitis 02/20/2021 ??? Anxiety and depression 10/24/2020 ??? Gastroesophageal reflux disease without esophagitis 04/03/2016 Resolved Hospital Problems No resolved problems to display. PLAN: Acute appendicitis -CT revealed dilated, fluid-filled appendix with subtle mucosal enhancement -On Levaquin -Surgery consulted, appreciate recommendations -Pain control -Antiemetics -NPO Umbilical hernia -CT revealed umbilical hernia containing fat, vasculature, fluid and fat stranding. No bowel involvement; Vascular congestion/strangulation suggested. -Surgery consulted, appreciate recommendations -Pain control -Antiemetics -NPO GERD -Convert to IV PPI Anxiety/Depression -Continue home dose medications Tobacco dependence syndrome -Nicotine patch ordered -Encouraged smoking cessation Morbid obesity -BMI= 43.14 -Weight loss education Home meds to be resumed as appropriate. Other changes to meds to be made based on progress during hospitalization. Code Status: CPR-Full Treatment DVT Prophylaxis: Sequential Compression Devices Consult with: Surgery Advance Care Planning: Aggregate face to face time discussing end of life advance care planning with patient 16 minutes. Discussed CPR/Intubation/Treatment Goals/Quality of life/Intensity of Care. Patient desires: CPR-Full Treatment Total critical care time spent: 45 minutes Edilma Longo APRN, SUZY 02/21/2021 3:39 AM LENS ASSORTER Primary Care Physician: Ousmane Gan MD Cosigned by Sarah Hoffman MD at 02/21/2021 10:02 PM LENS ASSORTER ASSORTER ASSORTER ASSORTER ASSORTER ASSORTER Associated attestation - Sarah Hoffman MD - 02/21/2021 10:02 PM LENS ASSORTER Patient has been seen separately from nurse practitioner. History and physical and patient's chart have been reviewed. I agree with current medical management and plan of care. Further medical management and plan of care to be coordinated. documented in this encounter Consult Notes * Rm Butler MD - 02/21/2021 10:12 AM CSTAssociated Order(s): IP CONSULT TO GENERAL SURGERY Images from the original note were not included. GENERAL SURGERY CONSULTATION NOTE Admit Date: 02/20/2021 Date of Consultation: 02/21/2021 Admitting Diagnosis: Acute appendicitis [K35.80] Umbilical hernia without obstruction and without gangrene [K42.9] Reason for Consultation: management recommendations. Assessment Assessment: Right lower quadrant abdominal pain Chronically incarcerated umbilical hernia with abdominal fat Obesity History of fundoplication Co-morbidities include: GERD. Advance Directives: Full Code Plan Recommendations: We will proceed to the operative room for laparoscopic possible open appendectomy and laparoscopic umbilical hernia repair with no mesh. Risk of surgery include bleeding, infection, injury to other structures, need for further surgery, pain, etc. benefits and alternatives were also addressed I explained to the patient that her CT scan did not showed much inflammation around the appendix although the appendix appeared dilated. I did review her CT with our radiologist. Her white count is normal. But her physical examination is concerning for peritoneal irritation on the right lower quadrant. Because of these I think there is any indication to proceed to the operative room. I will fix umbilical hernia during the same approach. Diagnostic Studies: radiology: CT scan: Showed umbilical hernia with incarcerated fat, distended appendix with no much inflammation around it, some lymph nodes noted on the right lower quadrant Subjective Subjective: Esther Day is a 30 y.o. female admitted by Sarah Colmenares MD, and consultation requested by emergency department. HPI: This is a 30-year-old female with history of obesity, I retrialed bowel syndrome, GERD, status post open fundoplication done at [facility] when she was a child. She presented to our hospital with diffuse abdominal pain with radiation towards her right lower quadrant for the last 24 hours with no other associated symptoms or complaints. The pain has been progressing with no resolution. She decided come to the emergency department underwent a CBC which showed normal white count and a CT scan of her abdomen which showed a chronically incarcerated umbilical hernia with preperitoneal fat as well as a dilated appendix with no fat stranding. General surgery was consulted. Principal Problem: Acute appendicitis Active Problems: Gastroesophageal reflux disease without esophagitis Morbid obesity (HCC) Anxiety and depression Tobacco dependence syndrome Umbilical hernia without obstruction and without gangrene PMHx: She has a past medical history of Abscess of face, Acid reflux, Allergic rhinitis, Anxiety, Chronic back pain, GERD (gastroesophageal reflux disease), Headache, History of seizure, IBS (irritable bowel syndrome), and Migraines. PSHx: Her has a past surgical history that includes exploratory of abdomen (2001); Myringotomy (Bilateral, ); Lipoma Resection (Left, 07/04/2017); Tonsillectomy (); Carpal Tunnel Release (Right, 04/29/2018); Wrist Ganglion Excision (Right, 04/29/2018); and Lipoma Resection (Bilateral, 02/18/2019). SHx: She reports that she has been smoking cigarettes. She has smoked for the past 15.00 years. Shehas never used smokeless tobacco. She reports current alcohol use. She reports current drug use. Drug: Marijuana. FHx: Her family history includes Anxiety disorder in her mother; Cancer in her maternal grandmother; Liver Cancer in her maternal grandmother; No Known Problems in her daughter, daughter, and maternal grandfather; Seizures in her maternal uncle and maternal uncle; Skin Cancer in her maternal grandmother. Allergies: Allergies Description Type Start Date End Date Comment Verified Die Drawing Checker Amoxicillin-Pot Clavulanate Allergy 11-Mar-2016 Severity: High Reactions: Rash, Itching Jonnie Beyer RN Cefaclor Allergy 11-Mar-2016 Severity: High Reactions: Hives, Rash Jonnie Beyer RN Codeine Topical 25-Dec-2018 Severity: High Reactions: Hives, Itching Cangelosi Carly Robles RN MEDS: Current Facility-Administered Medications: ??? 0.9 % sodium chloride solution ??? acetaminophen (TYLENOL) tablet 650 mg OR acetaminophen (TYLENOL) suppository 650 mg ? ? aluminum & magnesium hydroxide-simethicone (MAALOX, MYLANTA) 200-200-20 MG/5ML SUSP 20 mL ??? calcium carbonate (TUMS) chewable tablet 1,000 mg ??? diphenhydrAMINE (BENADRYL) capsule 25 mg ??? famotidine (PEPCID) injection 10 mg ??? HYDROmorphone (DILAUDID) injection 0.5 mg ??? ketorolac (TORADOL) injection 15 mg ??? levoFLOXacin (LEVAQUIN) tablet 750 mg ??? loratadine (CLARITIN) tablet 10 mg ??? magnesium hydroxide (MILK OF MAGNESIA) 400 MG/5ML suspension 30 mL ??? melatonin tablet 6 mg ??? metoclopramide (REGLAN) injection 5 mg ??? nicotine (NICODERM CQ) 14 MG/24HR patch 1 Patch ??? ondansetron (ZOFRAN-ODT) disintegrating tablet 4 mg OR ondansetron (ZOFRAN) injection 4 mg ??? polyethylene glycol (GLYCOLAX, MIRALAX) packet 17 g ??? Prochlorperazine Edisylate (COMPAZINE) injection 5 mg ??? TRANSDERMAL PATCH ACKNOWLEDGEMENT ??? venlafaxine (EFFEXOR-XR) XR capsule 150 mg Prior to Admission Medications Prescriptions Last Dose Informant Patient Reported? Taking? Acetaminophen (TYLENOL PO) 01/21/2021 at Unknown time Yes Yes Sig: Take 650 mg by mouth every 4 hours as needed. ergocalciferol (VITAMIN D) 32735 UNIT Capsule Not Taking at Unknown time No No Sig: Take 1 Capsule by mouth once a week. Patient not taking: Reported on 02/21/2021 famotidine (PEPCID) 20 MG Tablet 02/20/2021 at Unknown time No Yes Sig: Take 1 Tablet by mouth 2 times daily. glycopyrrolate (ROBINUL) 2 MG Tablet 02/14/2021 at Unknown time No Yes Sig: Take 2 Tablets by mouth 2 times daily as needed (excessive sweating). ibuprofen (MOTRIN) 800 MG Tablet > Month at Unknown time No Yes Sig: Take 1 Tablet by mouth every 8 hours as needed for Moderate or more severe pain. loratadine (CLARITIN) 10 MG Tablet 02/20/2021 at Unknown time Yes Yes Sig: Take 10 mg by mouth. triamcinolone (KENALOG) 0.1 % Cream Not Taking at Unknown time Yes No Sig: APPLY TOPICALLY TWICE DAILY Patient not taking: Reported on 02/21/2021 venlafaxine (EFFEXOR-XR) 150 MG CAPSULE SR 24 HR 02/20/2021 at Unknown time No Yes Sig: Take 1 Capsule by mouth daily. Facility-Administered Medications: None Review of Systems: A 14 point comprehensive review of systems was negative, except as documented in HPI. Objective Objective: VITALS: BP 135/80 Pulse 76 Temp 97.2 ??F (36.2 ??C) Resp 18 Ht 5' (1.524 m) Wt 220 lb 14.4 oz (100.2 kg) LMP 01/22/2021 SpO2 99% BMI 43.14 kg/m?? Physical Exam: BP 135/80 Pulse 76 Temp 97.2 ??F (36.2 ??C) Resp 18 Ht 5' (1.524 m) Wt 220 lb 14.4 oz (100.2 kg) LMP 01/22/2021 SpO2 99% BMI 43.14 kg/m?? General appearance alert, cooperative, no distress, appears stated age Head Normocephalic, without obvious abnormality, atraumatic Eyes conjunctivae/corneas clear. PERRL, EOM's intact. Ears normal Nose Nares normal. Septum midline. Mucosa normal. No drainage or sinus tenderness. Throat Lips, mucosa, and tongue normal. Teeth and gums normal Neck supple, symmetrical, trachea midline, no adenopathy, thyroid: not enlarged, symmetric, no tenderness/mass/nodules, no carotid bruit and no JVD Back symmetric, no curvature. ROM normal. No CVA tenderness Lungs clear to auscultation bilaterally Breasts no masses, tenderness Heart regular rate and rhythm, S1, S2 normal, no murmur, click, rub or gallop Abdomen soft, there is tenderness on the right lower quadrant with associated rebound, there is a chronically incarcerated umbilical hernia, there is a mid done laparotomy scar noted, no incisional hernias associated Pelvic Deferred Extremities extremities normal, atraumatic, no cyanosis or edema Pulses 2+ and symmetric Skin Skin color, texture, turgor normal. No rashes or lesions Lymph nodes Cervical, supraclavicular, and axillary nodes normal. Neurologic Normal I&O: No intake or output data in the 24 hours ending 02/21/21 1013 Data Review: CBC: Lab Results Component Value Date WBC 6.40 02/21/2021 RBC 4.00 02/21/2021 HEMOGLOBIN 10.9 (L) 02/21/2021 HEMATOCRIT 35.0 (L) 02/21/2021 PLATELETCNT 297 02/21/2021 BMP: Lab Results Component Value Date GLUCOSE 90 02/21/2021 SODIUM 140 02/21/2021 POTASSIUM 4.0 02/21/2021 CHLORIDE 107 02/21/2021 CO2VEN 25 02/21/2021 BUN 9 02/21/2021 CREATININE 0.58 (L) 02/21/2021 CALCIUM 8.4 (L) 02/21/2021 By: Rm Butler MD, 02/21/2021, 10:13 AM LENS ASSORTER Attending Provider: Sarah Hoffman MD Primary Care Physician: Ousmane Gan MD ASSORTER documented in this encounter Nursing Notes * Laurence Presley, RN - 02/21/2021 1:52 PM CST WHO Safety Checklist Team Debriefing completed. Additional information discussed during debrief, inrelation to patient specific assessment, includes blood loss, glycemic control, pain management, and venous thromboembolism prophylaxis, as needed. All members of the surgical team participated in the debriefing process, and each records information as applicable in their respective areas of documen tation. Specimen Transported to [facility] by LAURENCE PRESLEY RN. ASSORTER documented in this encounter OR Notes * OR Surgeon - Rm Butler MD - 02/21/2021 2:23 PM CST Procedure Laparoscopic appendectomy Laparoscopic umbilical hernia repair with no mesh Preoperative diagnosis Morbid obesity Acute appendicitis Chronically incarcerated umbilical hernia with preperitoneal fat Postoperative diagnosis Same Intraoperative findings Edematous appendix, no perforation, no abscess Small umbilical hernia with chronically incarcerated preperitoneal fat, primary repair done with interrupted sutures, no mesh Surgeon Rm Butler MD Anesthesia General and local, mixture 0.5% bupivacaine lidocaine ASA 3 Blood loss 5 cc Why the procedure was done This is a 30-year-old female with morbid obesity that presented to our emergency department with chronic abdominal pain especially in the right lower quadrant for the last couple of days. She also was complaining of periumbilical pain. CT scan was performed which showed dilated appendix fluid-filled, no much fat stranding and a chronically incarcerated umbilical hernia. Decision was made to bring the patient to the operative room for laparoscopic appendectomy and laparoscopic umbilical hernia repair. Risks, benefits and alternatives of the procedure were discussed with the patient. How the procedure was done The patient was brought to operative room 2. She was placed supine on the operative table and underwent endotracheal anesthesia. She did receive preoperative antibiotics while on the floor and a Jeffers catheter was placed. Her abdomen was prepped and draped in a sterile fashion and an appropriate time-out was performed. Procedure began with the placement of a Veress needle on the left upper quadrant, pneumoperitoneum to a pressure of 15 mm of mercury was achieved. A 5 mm trocar was placed after removal of the Veressneedle with the camera. Initial inspection of the abdomen revealed no injury on entry. An additional 5 mm trocar was placed in the supraumbilical area and a 12 mm trocar on the left lower quadrant. All trocar sites were anesthetized using local anesthetic and trocars were placed under direct vision. The appendix was localized on the right lower quadrant, the appendix appeared to be edematous and distended but no perforation or abscess was noted. The uterus appeared normal as well as both ovaries. LigaSure was used to divide the mesoappendix. The base of the appendix was divided using staple blue load. The appendix was placed in an Endo-Catch bag and removed via the 12 mm trocar on the left lower quadrant and sent to pathology for further analysis. The 12 mm trocar was reinserted and inspection of the umbilical hernia was performed. The preperitoneal fat was removed from the hernia using hot scissors. The hernia defect measure about 1-2 cm in size. Suture Passer was used through the umbilicus in order to place 2 figure of 8 sutures of 0 Vicryl torepair the hernia defect. This was done under laparoscopic vision. No mesh was used during this case. Trocars were removed under direct vision and the pneumoperitoneum was evacuated. The incisions were closed with interrupted 4 Monocryl suture. Dermabond was applied. The patient tolerated the procedure well without any complications. Sponges and needle counts were correct. Blood loss was 5 cc. The Jeffers catheter was removed at the end of the case. By: Rm Butler MD; 02/21/2021, 2:28 PM LENS ASSORTER ASSORTER documented in this encounter ED Notes * Muna Llamas RN - 02/21/2021 12:07 AM CST Patient transported to floor via wheelchair with all belongings at bedside. Patients VSS at this time ASSORTER * Muna Llamas RN - 02/20/2021 11:15 PM CST Pt medicated per provider orders. Pt educated on intended effects and side effects of medication and verbalized understanding, able to provide teach back of education. ASSORTER * Muna Llamas RN - 02/20/2021 11:00 PM CST Patient is resting in room with call light at bedside. Patient informed about wait time and verbalizes understanding. Patient denies needs at this time and verbalizes understanding that RN will complete hourly rounding. LES * Muna Llamas RN - 02/20/2021 10:00 PM CST Patient is resting in room with call light at bedside. Patient informed about wait time and verbalizes understanding. Patient denies needs at this time and verbalizes understanding that RN will complete hourly rounding. LES * Muna Llamas RN - 02/20/2021 9:00 PM CST Patient is resting in room with call light at bedside. Patient informed about wait time and verbalizes understanding. Patient denies needs at this time and verbalizes understanding that RN will complete hourly rounding. Report received from GRETA Sterling LES * Noe Crews PAC - 02/20/2021 7:54 PM CST Chief Complaint Patient presents with ??? Abdominal Pain Esther Day is a 30 y.o. female who presents to the ED c/o umbilical hernia x 1 month with increased pain for 3 days. Patient endorses nausea without V/D/C. No urinary sxs. Past Medical History Positives No date: Abscess of face Comment: Multiple -face and leg No date: Acid reflux No date: Allergic rhinitis No date: Anxiety No date: Chronic back pain No date: GERD (gastroesophageal reflux disease) No date: Headache No date: History of seizure No date: IBS (irritable bowel syndrome) No date: Migraines Current Facility-Administered Medications Medication Dose Route Frequency Provider Last Rate Last Admin ??? 0.9 % sodium chloride solution Intravenous Once Noe Crews, SARABJIT ??? [START ON 02/21/2021] levoFLOXacin (LEVAQUIN) tablet 750 mg 750 mg Oral Daily Noe Crews PAC ??? metroNIDAZOLE (FLAGYL) tablet 500 mg 500 mg Oral Once Noe Crews PAC Current Outpatient Medications Medication Sig Dispense Refill ??? Acetaminophen (TYLENOL PO) Take 650 mg by mouth every 4 hours as needed. ??? ergocalciferol (VITAMIN D) 62462 UNIT Capsule Take 1 Capsule by mouth once a week. 12 Capsule 0 ??? famotidine (PEPCID) 20 MG Tablet Take 1 Tablet by mouth 2 times daily. 180 Tablet 1 ??? glycopyrrolate (ROBINUL) 2 MG Tablet Take 2 Tablets by mouth 2 times daily as needed (excessivesweating). 360 Tablet 1 ??? ibuprofen (MOTRIN) 800 MG Tablet Take 1 Tablet by mouth every 8 hours as needed for Moderate ormore severe pain. 270 Tablet 1 ??? loratadine (CLARITIN) 10 MG Tablet Take 10 mg by mouth. ??? triamcinolone (KENALOG) 0.1 % Cream APPLY TOPICALLY TWICE DAILY ??? venlafaxine (EFFEXOR-XR) 150 MG CAPSULE SR [...] RELEASE RIGHT; Surgeon: Trent Blanton MD; Location: [facility]; Service: Orthopaedic ??? EXPLORATORY OF ABDOMEN 2002 Endo fundal plication ??? LIPOMA RESECTION Left 07/04/2017 Procedure: EXCISION LIPOMA LEFT UPPER BACK; Surgeon: Gareth Em MD; Location: [facility]; Service: General ??? LIPOMA RESECTION Bilateral 02/18/2019 Procedure: EXCISION LIPOMAS LOWER BACK TIMES TWO; Surgeon: Escobar Goodman MD; Location: [facility]; Service: General ??? MYRINGOTOMY Bilateral ??? TONSILLECTOMY ??? WRIST GANGLION EXCISION Right 04/29/2018 Procedure: GANGLION CYST EXCISION REMOVAL RIGHT WRIST; Surgeon: Trent Blanton MD; Location: [facility]; Service: Orthopaedic Social History Socioeconomic History ??? Marital status: Spouse name: Not on file ??? Number of children: 2 ??? Years of education: Not on file ??? Highest education level: 10th grade Occupational History ??? 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 Tobacco Use ??? Smoking status: Light Tobacco [...] Social History Narrative ??? Not on file Social Determinants of Health Social determinant risk not applicable to this patient. BP 137/74 Pulse 76 Temp 98.8 ??F (37.1 ??C) (Tympanic) Resp 18 Ht 5' (1.524 m) Wt 220 lb(99.8 kg) LMP 01/22/2021 SpO2 99% BMI 42.97 kg/m?? Review of Systems Constitutional: Negative for chills, fatigue and fever. HENT: Negative for congestion and sore throat. Respiratory: Negative for cough, chest tightness, shortness of breath and wheezing. Cardiovascular: Negative for chest pain and palpitations. Gastrointestinal: Positive for abdominal pain. Negative for constipation, diarrhea, nausea and vomiting. Genitourinary: Negative for dysuria, frequency, hematuria and urgency. Musculoskeletal: Negative for arthralgias and back pain. Skin: Negative for color change and wound. Neurological: Negative for dizziness, light-headedness and headaches. All other systems reviewed and are negative. Physical Exam Vitals and nursing note reviewed. Constitutional: General: She is not in acute distress. Appearance: She is well-developed. She is obese. She is not diaphoretic. HENT: Head: Normocephalic and atraumatic. Eyes: Pupils: Pupils are equal, round, and reactive to light. Neck: Thyroid: No thyromegaly. Cardiovascular: Rate and Rhythm: Normal rate and regular rhythm. Heart sounds: Normal heart sounds. No murmur heard. Pulmonary: Effort: Pulmonary effort is normal. No respiratory distress. Breath sounds: Normal breath sounds. No wheezing, rhonchi or rales. Chest: Chest wall: No tenderness. Abdominal: General: Bowel sounds are normal. There is no distension. Palpations: Abdomen is soft. There is no mass. Tenderness: There is abdominal tenderness in the right lower quadrant, periumbilical area, suprapubic area and left lower quadrant. There is no guarding or rebound. Hernia: A hernia is present. Hernia is present in the umbilical area. Musculoskeletal: General: No tenderness. Normal range of motion. Cervical back: Normal range of motion and neck supple. Skin: General: Skin is warm and dry. Coloration: Skin is not pale. Findings: No erythema or rash. Neurological: Mental Status: She is alert and oriented to person, place, and time. Cranial Nerves: No cranial nerve deficit. Psychiatric: Behavior: Behavior normal. Procedures Imaging Results CT ABDOMEN PELVIS W/ CONTRAST (Final result) Result time 02/20/21 22:01:27 Final result by Margarita Gann MD (02/20/21 22:01:27) Impression: IMPRESSION: Umbilical hernia containing fat, vasculature, fluid and fat stranding. No bowel involvement. Vascular congestion/strangulation suggested. Follow-up. Dilated, fluid-filled appendix with subtle mucosal enhancement suggested. There is no periappendiceal inflammation given the size of the appendix. Consider developing infection or inflammatory change although a developing mucocele or other pathology should be considered at the appendix. Follow-up is recommended. Mild thickening of the terminal ileal wall with mucosal enhancement suggested. Question developing infection or inflammatory change. Follow-up is recommended. Right lower quadrant lymphadenopathy is nonspecific within the mesentery. Suspected atelectatic change at the lower lungs. Prominent liver size. Narrative: EXAM DESCRIPTION: CT ABDOMEN PELVIS W/ CONTRAST REASON FOR STUDY: Hernia, complicated Complaining of abdominal pain, nausea today, history of irritable bowel syndrome TECHNIQUE: CT scan of the abdomen and pelvis performed with intravenous and without oral contrast using helical scanning technique with dynamic intravenous contrast injection. Reconstructed coronal and sagittal MPR images reviewed. All images stored on PACS. Automated exposure control was used as a dose optimization technique for this examination. CONTRAST TYPE/DOSE: 111 mL Isovue 370 injected via right antecubital fossa COMPARISON: None available FINDINGS: LOWER CHEST: Prominent heart size. No pericardial effusion. Mild ground-glass airspace opacities at the lung bases, probably atelectatic change. LIVER: The liver appears prominent in size. No definite cystic or solid parenchymal mass lesion. GALLBLADDER: Contracted gallbladder. No calcified gallstones. BILE DUCTS: No intrahepatic or extrahepatic ductal dilatation. SPLEEN: Normal size. No focal lesions. PANCREAS: No identified cystic or solid masses. No significant calcifications. No adjacent inflammation or peripancreatic fluid collections. Pancreatic duct not dilated. ADRENALS: Normal. KIDNEYS/URINARY TRACT: Symmetric bilateral renal parenchymal enhancement. No definite cystic or solid parenchymal mass lesion as visible. No urinary tract calcification or obstruction on either side. Urinary bladder is unremarkable. GI: The stomach is unremarkable. No small bowel dilatation. There is mild wall thickening involving the terminal ileum with some mucosal enhancement visible at axial image 119. Gas and stool are present throughout normal caliber colon. The appendix appears abnormal measuring up to 1.3 cm in diameter near its tip which is fluid-filled. This is visible at axial image 123. Subtle mucosal enhancement is suggested. There is very little periappendiceal inflammation. PERITONEUM: No free intraperitoneal gas. No dependent free pelvic fluid. RETROPERITONEUM: No mass or adenopathy. REPRODUCTIVE: No significant abnormality. VASCULATURE: No abdominal aortic aneurysm. MUSCULOSKELETAL: No significant abnormality. OTHER: There is a hernia at the umbilicus containing fat as well as vasculature and fluid. There is fat stranding associated with the hernia. There is no bowel involvement. Multiple enlarged lymph nodes are present at the right lower quadrant mesentery. THIS IS AN ELECTRONICALLY VERIFIED FINAL REPORT 02/20/2021 9:58 PM - Electronically signed by Margaritajeri Gann M.D. JS: MIGUEL Report ID: [id number] Reading Location: [place] [address] Labs Reviewed CMP (COMPREHENSIVE METABOLIC PANEL) - Abnormal; Notable for the following components: Result Value CREATININE, BLOOD 0.58 (*) CALCIUM 8.8 (*) All other components within normal limits URINALYSIS REFLEX IF INDICATED BY ABNORMAL RESULTS - Abnormal; Notable for the following components: WBC ESTERASE 25 /uL (*) WBC (Urine) 11-20 (*) BACTERIA, URINE Many (*) All other components within normal limits CBC WITH AUTO DIFFERENTIAL - Abnormal; Notable for the following components: HEMOGLOBIN (HGB) 11.3 (*) MPV 9.5 (*) All other components within normal limits LIPASE - Normal CULTURE, URINE COMPLETE BLOOD COUNT (CBC) WITH DIFF Narrative: The following orders were created for panel order Complete Blood Count (CBC) WITH Diff. Procedure Abnormality Status --------- ------ CBC with Auto Differential[[id number]] Abnormal Final result Please view results for these tests on the individual orders. POCT URINE HCG () MDM Number of Diagnoses or Management Options Acute appendicitis: new, needed workup Umbilical hernia without obstruction and without gangrene: established, worsening Amount and/or Complexity of Data Reviewed Clinical lab tests: ordered and reviewed Tests in the radiology section of CPT??: ordered and reviewed Tests in the medicine section of CPT??: ordered and reviewed Discussion of test results with the performing providers: yes Decide to obtain previous medical records or to obtain history from someone other than the patient:yes Obtain history from someone other than the patient: yes Review and summarize past medical records: yes Discuss the patient with other providers: yes Independent visualization of images, tracings, or specimens: yes Risk of Complications, Morbidity, and/or Mortality Presenting problems: moderate Diagnostic procedures: moderate Management options: moderate Critical Care Total time providing critical care: 30-74 minutes Patient Progress Patient progress: stable Total time providing critical care: 30-74 minutes. This excludes time spent performing separately reportable procedures and services. Clinical Impression 1. Acute appendicitis 2. Umbilical hernia without obstruction and without gangrene Discussed with Dr. Butler, general surgeon, who will consult on patient tomorrow. Discussed with Edilma Longo, hospitalist SUPERVISOR [employer] accepting patient to Dr. Triana's service as obs admission. ERP, Dr. Jalloh for face to face attestation. Patient care endorsed to hospitalist at time of ED discharge. The patient remained stable throughout their ED stay. My clinical impression was discussed with thepatient/family. Labs and radiology results were reviewed with them. I gave them the opportunity to ask questions, and addressed them as completely as possible given the information available at present. The therapeutic plan was discussed, advised to take medications as instructed, instructions weregiven and the importance of primary care follow up was stressed and encouraged. The patient/family voiced understanding of the plan, indications to return, and the need for follow up. Cosigned by Farzad Saleh MD at 02/20/2021 10:41 PM LENS ASSORTER ASSORTER ASSORTER ASSORTER Associated attestation - Farzad Saleh MD - 02/20/2021 10:41 PM LENS ASSORTER I saw and examined the patient with the PROFESSOR OF FORESTRY/PA on 02/19/2021. I personally performed the exam and medical decision making. I agree with the PROFESSOR OF FORESTRY/PA???s chief complaint, history, exam, and medical decision with the following additions/revisions: Patient presents emergency room complaining of pain primarily around the umbilical area of has gotten worse over the past 3 days. She does have history of an umbilical hernia. She has had nausea but no vomiting or diarrhea. She denies any fever. Physical exam: Patient is well-developed well-nourished obese female no acute distress. Lungs clearbilaterally. Heart regular rate rhythm. Abdomen reveals tenderness in the right lower quadrant to palpation in addition to the periumbilical area and over the bladder. Hernias noted in the umbilical area. Neuro patient is alert oriented. Patient had a workup with labs there sensory unremarkable. CT abdomen pelvis confirms the presence of the umbilical hernia. She also has a dilated fluid- filled appendix which may be consistent with early appendicitis. Surgeon has been consulted and will see the patient in the hospital in the a.m.. He otherwise be placed in hospital for further evaluation and treatment of this problem. * Muna Llamas RN - 02/20/2021 7:40 PM CST Patient presents to ED triage ambulatory with c/o abdominal pain and acid reflux. Patient reports that she believes she has a hernia and it is sharp at times. Patient reports that she has had some nausea without vomiting. Patient is A&O x 4 in triage with VSS ASSORTER documented in this encounter Miscellaneous Notes * Interdisciplinary - Kj Lynn RN - 02/22/2021 11:50 AM CST Pt. Had discharge instructions and discharge teaching completed by Valentina HERNANDES. Pt. Was taken out by wheel chair to family vehicle to go home with no needs. ASSORTER * Plan of Care - Kj Lynn RN - 02/22/2021 11:50 AM CST Problem: Adult Inpatient Plan of Care Goal: Plan of Care Review Outcome: Outcome Achieved Goal: Absence of Hospital-Acquired Illness or Injury Outcome: Outcome Achieved Goal: Optimal Comfort and Wellbeing Outcome: Outcome Achieved Goal: Readiness for Transition of Care Outcome: Outcome Achieved Problem: Pain (Appendectomy) Goal: Acceptable Pain Control Outcome: Outcome Achieved Problem: Postoperative Nausea and Vomiting (Appendectomy) Goal: Nausea and Vomiting Relief Outcome: Outcome Achieved ASSORTER * Interdisciplinary - Valentina Benítez RN - 02/22/2021 11:45 AM CST Pt sitting on side of bed upon entering. Dr Hoffman present and doing a last exam before discharging pt. Pt denies having any pain or discomfort when asked. She is alert and oriented x 3. I introduced myself and explained my role and our goals. Pt educated regarding her discharge instructions. We discussed medication- adequate pain control andprevention of opioid constipation; diet, activity/safety-weight limits for lifting and no twisting;incision/dressing care, hygiene and the importance of f/u with her PCP/surgeon as instructed. Pt denied having any questions or concerns when asked. I informed pt that I will be calling to f/u regarding her status. Pt encouraged to call me for any further needs. Pt verbalized understanding and stated she will. No signs of distress noted at this time. ASSORTER * Interdisciplinary - Kj Lynn RN - 02/22/2021 7:44 AM CST Pt. Resting in bed with call light in reach. Pt. Has IV fluids infusing. Pt. Is receiving around the clock pain medication per JUN. Full assessment complete see flow sheet. ASSORTER * Interdisciplinary - Joyce Troncoso RN - 02/22/2021 5:43 AM CST Pt resting in bed with call light in reach. Pt is on room air, resp even and unlabored. No s/s or c/o SOB. IVF infusing per JUN. Pt reports that pain is being effectively controlled by IV Toradol at this time. Pt tolerating clear liquid diet and eager to advance diet today. Pt rounding continues. Pt handoff to be given to GRETA Underwood. ASSORTER * Plan of Care - Joyce Troncoso RN - 02/22/2021 4:02 AM CST Problem: Adult Inpatient Plan of Care Goal: Plan of Care Review Outcome: Ongoing (see interventions/notes) Flowsheets Taken 02/22/2021 0400 Progress: progress toward functional goals as expected Plan of Care Reviewed With: patient Outcome Summary: Pt resting in bed with IVF infusing. Pt has reported pain twice this shift which was effectively managed with IV toradol. Pt is eager to advance diet Patient-Specific Preferences: wants to use less pain medicine Does the patient need assistance with discharge and/or transitioning to the next level of care?: Yes, case management already following Taken 02/21/20211900 Today's Goal: Pt will report pain less than 3/10 Goal: Absence of Hospital-Acquired Illness or Injury Outcome: Ongoing (see interventions/notes) Intervention: Prevent and Manage VTE (Venous Thromboembolism) Risk Flowsheets (Taken 02/22/2021 0400) VTE Prevention/Management: sequential compression devices off patient refused intervention ambulation encouraged bleeding risk factor(s) identified Goal: Optimal Comfort and Wellbeing Outcome: Ongoing (see interventions/notes) Intervention: Provide Person-Centered Care Flowsheets (Taken 02/21/20211900) Trust Relationship/Rapport: care explained therapeutic presence provided safe/supportive environment facilitated Goal: Readiness for Transition of Care Outcome: Ongoing (see interventions/notes) Problem: Pain (Appendectomy) Goal: Acceptable Pain Control Outcome: Ongoing (see interventions/notes) Intervention: Prevent or Manage Pain Flowsheets Taken 02/22/2021 0146 Pain Management Interventions: care clustered diversional activity encouraged position adjusted pillow support provided Taken 02/21/20211900 Diversional Activities: television smartphone Problem: Postoperative Nausea and Vomiting (Appendectomy) Goal: Nausea and Vomiting Relief Outcome: Ongoing (see interventions/notes) Intervention: Prevent or Manage Postoperative Nausea and Vomiting Flowsheets (Taken 02/21/20211900) Nausea/Vomiting Interventions: antiemetic given stimuli minimized ASSORTER * Joyce Quintana RN - 02/22/2021 3:34 AM CST Pt asked for PRN dose of Toradol and received it at 0141. Pt now is refusing 0300 scheduled dose ofToradol due to pain being controlled by the last-given PRN dose. ASSORTER * Joyce Quintana RN - 02/21/2021 7:05 PM CST Pt resting in bed complaining of abdominal pain and nausea. Medications to be administered per MAR.Resp even and unlabored. No acute s/s distress noted. IVF infusing per MAR. Call light within reach. Pt is compliant with call light use for assistance. See flow sheet for complete assessment. Pt rounding continues ASSORTER * Interdisciplinary - Kj Lynn RN - 02/21/2021 5:32 PM CST Pt. Resting in bed with call light in reach. Pt. Has not had call outs of pain or nausea. Pt. Post op vital signs have been completed. Pt. Had a laparoscopic appendectomy and laparoscopic umbilical hernia repair. Pt. Has IV fluids infusing. Pt. Is able to possibly discharge tomorrow. ASSORTER * Plan of Care - Kj Lynn RN - 02/21/2021 4:29 PM CST Problem: Adult Inpatient Plan of Care Goal: Plan of Care Review Outcome: Ongoing (see interventions/notes) Flowsheets Taken 02/21/2021 1627 Progress: improving Plan of Care Reviewed With: patient Outcome Summary: Pt. resting in bed with call light in reach and IV fluids infusing. Pt. is receiving IV prn pain medication and antiemetics per MAR. Pt. is on a clear liquid diet and it is advanced as tolerated. Does the patient need assistance with discharge and/or transitioning to the next level of care?: Yes, case management already following Taken 02/21/2021 0710 Today's Goal: Pain <3 Goal: Absence of Hospital-Acquired Illness or Injury Outcome: Ongoing (see interventions/notes) Goal: Optimal Comfort and Wellbeing Outcome: Ongoing (see interventions/notes) Goal: Readiness for Transition of Care Outcome: Ongoing (see interventions/notes) Problem: Pain (Appendectomy) Goal: Acceptable Pain Control Outcome: Ongoing (see interventions/notes) Intervention: Prevent or Manage Pain Flowsheets Taken 02/21/2021 1627 by Kj Lynn freelance designer Interventions: [id number] dosing utilized care clustered cold applied Taken 02/21/2021 0043 by Kj Ware RN Diversional Activities: television smartphone Problem: Postoperative Nausea and Vomiting (Appendectomy) Goal: Nausea and Vomiting Relief Outcome: Ongoing (see interventions/notes) Intervention: Prevent or Manage Postoperative Nausea and Vomiting Flowsheets (Taken 02/21/2021 1627) Nausea/Vomiting Interventions: antiemetic given ASSORTER * Interdisciplinary - Kj Lynn RN - 02/21/2021 3:10 PM CST Kandace HERNANDES in PACU called and gave report. Pt. To come to floor shortly. ASSORTER * Plan of Care - Kandace Fine RN - 02/21/2021 2:43 PM CST Pt will be discharged from PACU when criteria met ASSORTER * Plan of Care - Rm Butler MD - 02/21/2021 2:31 PM CST Patient underwent laparoscopic appendectomy and laparoscopic umbilical hernia repair with no mesh The appendix looked inflamed but no perforation was noted The appendix was removed without any complications The umbilical hernia was small with preperitoneal fat, repair was done with suture no mesh Diet can be advanced as tolerated Oral pain medication Out of bed No need for further antibiotics Okay to be discharged from surgical standpoint, follow-up in 2 weeks By: Rm Butler MD; 02/21/2021, 2:32 PM LENS ASSORTER ASSORTER * Interdisciplinary - Kj Lynn RN - 02/21/2021 7:35 AM CST Pt. Resting in bed with call light in reach. Pt. Had complaints of nausea and abdominal and head pain. Prn pain medication and antemetic given. Pt. IV infiltrated new IV was started. Full assessment complete see flow sheet. ASSORTER documented in this encounter Plan of Treatment Upcoming Encounters Date Type Department Care Team (Late st Contact Info) Description 04/28/2024 10:00 AM LENS ASSORTER Appointment [facility]iology [address] [place] [id number] Karen Andino, CROP NUTRITION SCIENTIST, SUPERVISOR [address] [place] [address] Discharge Disposition: Discharged to home or Selfcare 06/02/2024 10:00 AM LENS ASSORTER Office Visit [facility] [address] [place] [address] Kelin Castle, [address] [place] [address] Scheduled Orders Name Type Priority Associated Diagnoses Orde r Schedule Pulse Oximetry, Spot PFT Routine WITH VITALS until discontinued starting 02/20/2021 documented as of this encounter Procedures Procedure Name Priority Date/Time Associated Diagnosis Comments CBC WITH AUTO DIFFERENTIAL Routine 02/22/2021 7:13 AM LENS ASSORTER COMPLETE BLOOD COUNT (CBC) WITH DIFF Routine 02/22/2021 7:13 AM LENS ASSORTER BASIC METABOLIC PANEL W/ CALCIUM TOTAL Routine 02/22/2021 7:13 AM LENS ASSORTER PATHOLOGY SURGICAL Routine 02/21/2021 1: 08 PM LENS ASSORTER LAPAROSCOPIC UMBILICAL HERNIA REPAIR 02/21/2021 12:53 PM LENS ASSORTER APPENDICITIS, UMBILICAL HERNIA LAPAROSCOPIC APPENDECTOMY 02/21/2021 12:53 PM LENS ASSORTER APPENDICITIS, UMBILICAL HERNIA CMP (COMPREHENSIVE METABOLIC PANEL) STAT 02/21/2021 6:32 AM LENS ASSORTER CBC WITH AUTO DIFFERENTIAL STAT 02/21/2021 6:23 AM LENS ASSORTER COMPLETE BLOOD COUNT (CBC) WITH DIFF STAT 02/21/2021 6:23 AM LENS ASSORTER SARS-COV-2 BY MOLECULAR STAT 02/20/2021 10:[address] ABDOMEN PELVIS W/ CONTRAST STAT 02/20/2021 9:28 PM LENS ASSORTER URINALYSIS REFLEX IF INDICATED BY ABNORMAL RESULTS STAT 02/20/2021 8:36 PM LENS ASSORTER CULTURE, URINE STAT 02/20/2021 8:36 PM LENS ASSORTER CBC WITH AUTO DIFFERENTIAL STAT 02/20/2021 8:30 PM LENS ASSORTER LIPASE STAT 02/20/2021 8:30 PM LENS ASSORTER CMP (COMPREHENSIVE METABOLIC PANEL) STAT 02/20/2021 8:30 PM LENS ASSORTER COMPLETE BLOOD COUNT (CBC) WITH DIFF STAT 02/20/2021 8:30 PM LENS ASSORTER POCT URINE HCG () STAT 02/20/2021 8:17 PM LENS ASSORTER documented in this encounter Results * (ABNORMAL) CBC with Auto Differential (02/22/2021 7:13 AM LENS ASSORTER) Only the most recent of3 resultswithin the time period is included. WBC 10.46 4.00 - 12.00 10(3)/mcL 02/22/2021 7:54 AM LENS ASSORTER [facility] RBC 4.02 3.80 - 5.30 10(6)/mcL 02/22/2021 7:54 AM LENS ASSORTER [facility] HEMOGLOBIN (HGB) 10.9(L) 12.0 - 15.8 g/dL 02/22/2021 7:54 AM LENS ASSORTER [facility] HEMATOCRIT (HCT) 34.9(L) 36.0 - 47.0 % 02/22/2021 7:54 AM LENS ASSORTER [facility] MCV 86.8 82.0 - 96.0 fL 02/22/2021 7:54 AM [facility] MCH 27.1 26.0 - 34.0 pg 02/22/2021 7:54 AM [facility] MCHC 31.2 31.0 - 36.0 g/dL 02/22/2021 7:54 AM [facility] PLATELET COUNT 353 140 - 440 10(3)/[facility] 02/22/2021 7:54 AM [facility] RDW 13.0 11.8 - 15.5 % 02/22/2021 7:54 AM [facility] MPV 9.7 9.7 - 12.4 fL 02/22/2021 7:54 AM [facility] NEUTROPHILS 82.7(H) 47.0 - 73.0 % 02/22/2021 7:54 AM [facility] LYMPHOCYTES 12.3(L) 18.0 - 42.0 % 02/22/2021 7:54 AM [facility] MONOCYTES 4.6 4.0 - 12.0 % 02/22/2021 7:54 AM [facility] EOSINOPHILS 0.1 0.0 - 5.0 % 02/22/2021 7:54 AM [facility] BASOPHILS 0.3 0.0 - 1.0 % 02/22/2021 7:54 AM [facility] ABSOLUTE NEUTROPHILS 8.65(H) 1.60 - 7.70 10(3)/[facility] 02/22/2021 7:54 AM [facility] ABSOLUTE LYMPHOCYTES 1.29(L) 1.30 - 3.20 10(3)/[facility] 02/22/2021 7:54 AM [facility] ABSOLUTE MONOCYTES 0.48 0.20 - 1.00 10(3)/[facility] 02/22/2021 7:54 AM [facility] ABSOLUTE EOSINOPHIL 0.01 0.00 - 0.40 10(3)/[facility] 02/22/2021 7:54 AM [facility] ABSOLUTE BASOPHILS 0.03 0.00 - 0.10 10(3)/mcL 02/22/2021 7:54 AM [facility] NRBC PER 100 WBC 0 02/23/20 7:54 AM [facility] Blood BLOOD SPECIMEN / Unknown Venipuncture / Unknown 02/22/2021 7:13 AM LENS ASSORTER 02/22/2021 7:49 AM LENS ASSORTER us Sarah Colmenares MD HEMATOLOGY ORDERABLES Final R esult [facility] [address] [place] [address] * (ABNORMAL) BMP AM (02/22/2021 7:13 AM LENS ASSORTER) SODIUM 140 136 - 144 mmol/L 02/22/2021 8:10 AM [facility] POTASSIUM 4.0 3.5 - 5.1 mmol/L 02/22/2021 8:10 AM [facility] CHLORIDE 105 100 - 110 mmol/L 02/22/2021 8:10 AM [facility] CO2, VENOUS 23 22 - 32 mmol/L 02/22/2021 8:10 AM [facility] ANION GAP 16.0 8.0 - 20.0 mmol/L 02/22/2021 8:10 AM [facility] GLUCOSE 94 70 - 99 mg/dL 02/22/2021 8:10 AM [facility] BUN 8 6 - 20 mg/dL 02/22/2021 8:10 AM [facility] CREATININE, BLOOD 0.50(L) 0.60 - 1.10 mg/dL 02/22/2021 8:10 AM [facility] BUN/CREATININE RATIO 16 12 - 20 ratio 02/22/2021 8:10 AM [facility] CALCIUM 9.0 8.9 - 10.3 mg/dL 02/22/2021 8:10 AM LENS ASSORTER [facility] GFR, EST. NONAFRICAN >60 >=60 02/22/2021 8:10 AM LENS ASSORTER [facility] GFR, EST. >60 >=60 02/22/2021 8:10 AM LENS ASSORTER [facility] Comment: Creatinine Clearance is the preferred criteria for selecting drug dose adjustments in renally impaired patients. ??The GFR is provided as additional pertinent clinical information. GFR is reported in mL/min/1.73 sq m. Blood BLOOD SPECIMEN / Unknown Venipuncture / Unknown 02/22/2021 7:13 AM LENS ASSORTER 02/22/2021 7:49 AM LENS ASSORTER Sarah Colmenares MD CHEMISTRY ORDERABLES Final Re sult [facility] [facility] [place] [address] * Pathology Surgical (02/21/2021 1:08 PM LENS ASSORTER) Case Report Surgical Pathology Report ? Case: [id number] ? Authorizing Provider: ??Rm Butler, ??Collected: ? 02/21/2021 01:08 PM ? MD ? [facility] ? Received: ?02/22/2021 10:45 AM ? [facility] ? Main OR ? Pathologist: ? Nereida Figueredo, ? MD ? Specimen: ?Appendix, APPENDIX ? 03/01/2021 4:08 PM LENS ASSORTER [facility] FINAL DIAGNOSIS Vermiform Appendix, Appendectomy: - Hydroappendix. - Findings compatible with early acute appendicitis, see Description. 03/01/2021 4:08 PM LENS ASSORTER [facility] Pre-Operative Diagnosis APPENDICITIS, UMBILICAL HERNIA 03/01/2021 4:08 PM LENS ASSORTER [facility] Gross Description A. APPENDIX The specimen presents in a single formalin container for gross and microscopic examination, labeled with the patient's name, Esther Day, and designated appendix. Specimen consists of a single vermiform appendix measuring 4.5 cm in length and has a maximum diameter of 1.3 cm. The proximal end is stapled closed. The serosal surface is light pink-carey and glistening. The appendix is sectioned at narrow intervals revealing a clear thin fluid. The lumen measures up to 0.7 cm in diameter. The specimen is entirely submitted as A1-A3. KS/sb 03/01/2021 4:08 PM LENS ASSORTER [facility] Microscopic Description 3 H&E. Sections disclose a markedly dilated vermiform appendix and attenuated appendiceal wall with flattened mucosa and a sparse transmural eosinophilic infiltrate. No significant acute inflammation or epithelial atypia is identified. SES/sb 03/01/2021 4:08 PM LENS ASSORTER [facility] Tissue APPENDIX STRUCTURE / Unknown 02/21/2021 1:08 PM LENS ASSORTER 02/22/2021 10:45 AM LENS ASSORTER us Rm Butler MD PATHOLOGY/CYTOLOGY OR DERABLES Final Result [facility] [address] [place] [address] * (ABNORMAL) Comprehensive Metabolic Panel (CMP) (02/21/2021 6:32 AM LENS ASSORTER) Only the most recent of2 resultswithin the time period is included. SODIUM 140 136 - 144 mmol/L 02/21/2021 7:18 AM LENS ASSORTER [facility] POTASSIUM 4.0 3.5 - 5.1 mmol/L 02/21/2021 7:18 AM [facility] CHLORIDE 107 100 - 110 mmol/L 02/21/2021 7:18 AM LENS ASSORTER [facility] CO2, VENOUS 25 22 - 32 mmol/L 02/21/2021 7:18 AM [facility] ANION GAP 12.0 8.0 - 20.0 mmol/L 02/21/2021 7:18 AM [facility] GLUCOSE 90 70 - 99 mg/dL 02/21/2021 7:18 AM [facility] BUN 9 6 - 20 mg/dL 02/21/2021 7:18 AM [facility] CREATININE, BLOOD 0.58(L) 0.60 - 1.10 mg/dL 02/21/2021 7:18 AM [facility] BUN/CREATININE RATIO 16 12 - 20 ratio 02/21/2021 7:18 AM [facility] TOTAL PROTEIN 6.2 6.0 - 8.3 g/dL 02/21/2021 7:18 AM [facility] ALBUMIN 3.9 3.5 - 5.2 g/dL 02/21/2021 7:18 AM [facility] Comment: The colormetric methods used for the determination of Albumin may lead to falsely elevated test results in patients suffering from renal failure or insufficiency due to interference with other proteins. A/G RATIO 1.7 1.0 - 2.0 02/21/2021 7:18 AM [facility] CALCIUM 8.4(L) 8.9 - 10.3 mg/dL 02/21/2021 7:18 AM [facility] T BILI 0.4 <=1.2 mg/dL 02/21/2021 7:18 AM [facility] SGOT (AST) 23 <=32 U/L 02/21/2021 7:18 AM [facility] SGPT (ALT) 21 <=41 U/L 02/21/2021 7:18 AM [facility] ALKALINE PHOSPHATASE 75 35 - 105 U/L 02/21/2021 7:18 AM [facility] GFR, EST. NONAFRICAN >60 >=60 02/21/2021 7:18 AM LENS ASSORTER [facility] GFR, EST. >60 >=60 021 7:18 AM LENS ASSORTER [facility] Comment: Creatinine Clearance is the preferred criteria for selecting drug dose adjustments in renally impaired patients. ??The GFR is provided as additional pertinent clinical information. GFR is reported in mL/min/1.73 sq m. Blood Venipuncture / Unknown 02/21/2021 6:32 AM LENS ASSORTER 02/21/2021 6:52 AM LENS ASSORTER us Edilma Longo CROP NUTRITION SCIENTIST, SUPERVISOR SHOP CHEMISTRY ORDERABLES Final Result Performing Organization Address City/State/[facility] Co de Phone Number [facility] [place] [address] * SARS-COV-2 BY MOLECULAR (02/20/2021 10:55 PM LENS ASSORTER) SARSCOV2 NOT DETECTED (Referenc e Range for this test is Not Detected) [facility] ID NOW 02/20/2021 11:21 PM LENS ASSORTER [facility] Comment:This test was perfor med by a MOLECULAR, NON-PCR method Other NASAL STRUCTURE / Unknown Non-Phlebotomy Collection / Unknown 02/20/2021 10:55 PM LENS ASSORTER 02/20/2021 11:03 PM LENS ASSORTER Narrative [facility] - 02/20/2021 11:21 PM LENS ASSORTER This test has been authorized by the FDA under an Emergency Use Authorization (EUA) only. Negative results should be treated as presumptive and, if inconsistent with clinical signs and symptoms or necessary for patient management, the patient should be tested with an alternative molecular assay. Negative results do not preclude SARS-CoV-2 infection or any other respiratory pathogen. Additional information for Clinicians can be found at: https://www.fda.gov/media/620983/download Additional information for Patients can be found at: https://www.fda.gov/media/034849/download us Noe Crews PAC MICROBIOLOGY - GENER AL ORDERABLES Final Result [facility] [place] [address] * CT ABDOMEN PELVIS W/ CONTRAST (02/20/2021 9:28 PM LENS ASSORTER) Anatomical Region Laterality Modality Abdomen N/A Computed Tomogra phy 02/20/2021 9:58 PM LENS ASSORTER Impressions 02/20/2021 10:01 PM LENS ASSORTER IMPRESSION: ?? Umbilical hernia containing fat, vasculature, fluid and fat stranding. ??No bowel involvement. ??Vascular congestion/strangulation suggested. ??Follow-up. Dilated, fluid-filled appendix with subtle mucosal enhancement suggested. ??There is no periappendiceal inflammation given the size of the appendix. ??Consider developing infection or inflammatory change although a developing mucocele or other pathology should be considered at the appendix. ??Follow-up is recommended. Mild thickening of the terminal ileal wall with mucosal enhancement suggested. ??Question developing infection or inflammatory change. ?? Follow-up is recommended. Right lower quadrant lymphadenopathy is nonspecific within the mesentery. Suspected atelectatic change at the lower lungs. Prominent liver size. Narrative 02/20/2021 10:01 PM LENS ASSORTER EXAM DESCRIPTION: ?? CT ABDOMEN PELVIS W/ CONTRAST REASON FOR STUDY: ?? Hernia, complicated Complaining of abdominal pain, nausea today, history of irritable bowel syndrome TECHNIQUE: ??CT scan of the abdomen and pelvis performed with intravenous and ??without oral contrast using helical scanning technique with dynamic intravenous contrast injection. Reconstructed coronal and sagittal MPR images reviewed. All images stored on PACS. Automated exposure control was used as a dose optimization technique for this examination. CONTRAST TYPE/DOSE: ?? 111 mL Isovue 370 injected via ??right antecubital fossa COMPARISON: ?? None available FINDINGS: ??LOWER CHEST: ??Prominent heart size. ??No pericardial effusion. ??Mild ground-glass airspace opacities at the lung bases, probably atelectatic change. LIVER: ??The liver appears prominent in size. ??No definite cystic or solid parenchymal mass lesion. GALLBLADDER: ??Contracted gallbladder. ??No calcified gallstones. BILE DUCTS: ??No intrahepatic or extrahepatic ductal dilatation. SPLEEN: ??Normal size. ??No focal lesions. PANCREAS: ??No identified cystic or solid masses. No significant calcifications. No adjacent inflammation or peripancreatic fluid collections. Pancreatic duct not dilated. ADRENALS: ??Normal. KIDNEYS/URINARY TRACT: ??Symmetric bilateral renal parenchymal enhancement. ??No definite cystic or solid parenchymal mass lesion as visible. ??No urinary tract calcification or obstruction on either side. ??Urinary bladder is unremarkable. GI: ??The stomach is unremarkable. ??No small bowel dilatation. ??There is mild wall thickening involving the terminal ileum with some mucosal enhancement visible at axial image 119. ??Gas and stool are present throughout normal caliber colon. ??The appendix appears abnormal measuring up to 1.3 cm in diameter near its tip which is fluid-filled. ??This is visible at axial image 123. ??Subtle mucosal enhancement is suggested. ??There is very little periappendiceal inflammation. PERITONEUM: ??No free intraperitoneal gas. ??No dependent free pelvic fluid. RETROPERITONEUM: ??No mass or adenopathy. REPRODUCTIVE: ??No significant abnormality. VASCULATURE: ??No abdominal aortic aneurysm. MUSCULOSKELETAL: ??No significant abnormality. OTHER: ??There is a hernia at the umbilicus containing fat as well as vasculature and fluid. ??There is fat stranding associated with the hernia. ??There is no bowel involvement. ??Multiple enlarged lymph nodes are present at the right lower quadrant mesentery. THIS IS AN ELECTRONICALLY VERIFIED FINAL REPORT 02/20/2021 9:58 PM - Electronically signed by Margarita Gann M.D. JS: [email or web address] D: ??02/20/2021 9:58 PM T: ??02/20/2021 9:58 PM Report ID: [id number] Reading Location: ??[id number] Procedure Note Margarita Gann MD - 02/20/2021 EXAM DESCRIPTION: CT ABDOMEN PELVIS W/ CONTRAST REASON FOR STUDY: Hernia, complicated Complaining of abdominal pain, nausea today, history of irritable bowel syndrome TECHNIQUE: CT scan of the abdomen and pelvis performed with intravenous and without oral contrast using helical scanning technique with dynamic intravenous contrast injection. Reconstructed coronal and sagittal MPR images reviewed. All images stored on PACS. Automated exposure control was used as a dose optimization technique for this examination. CONTRAST TYPE/DOSE: 111 mL Isovue 370 injected via right antecubital fossa COMPARISON: None available FINDINGS: LOWER CHEST: Prominent heart size. No pericardial effusion. Mild ground-glass airspace opacities at the lung bases, probably atelectatic change. LIVER: The liver appears prominent in size. No definite cystic or solid parenchymal mass lesion. GALLBLADDER: Contracted gallbladder. No calcified gallstones. BILE DUCTS: No intrahepatic or extrahepatic ductal dilatation. SPLEEN: Normal size. No focal lesions. PANCREAS: No identified cystic or solid masses. No significant calcifications. No adjacent inflammation or peripancreatic fluid collections. Pancreatic duct not dilated. ADRENALS: Normal. KIDNEYS/URINARY TRACT: Symmetric bilateral renal parenchymal enhancement. No definite cystic or solid parenchymal mass lesion as visible. No urinary tract calcification or obstruction on either side. Urinary bladder is unremarkable. GI: The stomach is unremarkable. No small bowel dilatation. There is mild wall thickening involving the terminal ileum with some mucosal enhancement visible at axial image 119. Gas and stool are present throughout normal caliber colon. The appendix appears abnormal measuring up to 1.3 cm in diameter near its tip which is fluid-filled. This is visible at axial image 123. Subtle mucosal enhancement is suggested. There is very little periappendiceal inflammation. PERITONEUM: No free intraperitoneal gas. No dependent free pelvic fluid. RETROPERITONEUM: No mass or adenopathy. REPRODUCTIVE: No significant abnormality. VASCULATURE: No abdominal aortic aneurysm. MUSCULOSKELETAL: No significant abnormality. OTHER: There is a hernia at the umbilicus containing fat as well as vasculature and fluid. There is fat stranding associated with the hernia. There is no bowel involvement. Multiple enlarged lymph nodes are present at the right lower quadrant mesentery. THIS IS AN ELECTRONICALLY VERIFIED FINAL REPORT 02/20/2021 9:58 PM - Electronically signed by Margarita Gann M.D. JS: [email or web address] Report ID: [id number] Reading Location: [id number] IMPRESSION: Umbilical hernia containing fat, vasculature, fluid and fat stranding. No bowel involvement. Vascular congestion/strangulation suggested. Follow-up. Dilated, fluid-filled appendix with subtle mucosal enhancement suggested. There is no periappendiceal inflammation given the size of the appendix. Consider developing infection or inflammatory change although a developing mucocele or other pathology should be considered at the appendix. Follow-up is recommended. Mild thickening of the terminal ileal wall with mucosal enhancement suggested. Question developing infection or inflammatory change. Follow-up is recommended. Right lower quadrant lymphadenopathy is nonspecific within the mesentery. Suspected atelectatic change at the lower lungs. Prominent liver size. Noe Crews PAC IMG CT ORDERABLES Fi nal Result * Culture, Urine (02/20/2021 8:36 PM LENS ASSORTER) CULTURE RESULTS 30,000 CFU/ML Staphylococcus Coagulase Negative not Staphylococcus saprophyticus 02/22/2021 2:45 PM LENS ASSORTER [facility] Comment:NO FURTHER WORKUP PE RFORMED CULTURE RESULTS ALSO MIXED GROWTH OF DISTAL URETHRA CONTAMINANTS. 02/22/2021 2:45 PM LENS ASSORTER [facility] Urine URINE SPECIMEN / Unknown Non-Phlebotomy Collection / Unknown 02/20/2021 8:36 PM LENS ASSORTER 02/20/2021 8:37 PM LENS ASSORTER Noe Crews [facility] MICROBIOLOGY - GENER AL ORDERABLES Final Result [facility] [address] [place] [address], * (ABNORMAL) Urinalysis Reflex if Indicated by Abnormal Results (02/20/2021 8:36 PM LENS ASSORTER) SPECIFIC GRAVITY 1.010 1.003 - 1.030 02/20/2021 8:55 PM LENS ASSORTER [facility] URINE PH 6.5 5.0 - 9.0 02/20/2021 8:55 PM LENS ASSORTER [facility] WBC ESTERASE 25 /uL(A) Negative 02/20/2021 8:55 PM LENS ASSORTER [facility] NITRITE Negative Negative 02/20/2021 8:55 PM LENS ASSORTER [facility] PROTEIN, RANDOM URINE Negative Negative 02/20/2021 8:55 PM LENS ASSORTER [facility] URINE GLUCOSE, QUAL Negative Negative 02/20/2021 8:55 PM LENS ASSORTER [facility] URINE KETONES Negative Negative 02/20/2021 8:55 PM LENS ASSORTER [facility] UROBILINOGEN Normal Normal mg/dL 02/20/2021 8:55 PM LENS ASSORTER [facility] URINE BLOOD Negative Negative jerardo/ul 02/20/2021 8:55 PM LENS ASSORTER [facility] URINALYSIS COLOR Yellow 02/21/20 8:55 PM LENS ASSORTER [facility] URINALYSIS CLARITY Clear 02/20/2021 8:55 PM LENS ASSORTER [facility] WBC (Urine) -20(A) Negative, 0-5 /hpf 02/20/2021 8:55 PM LENS ASSORTER [facility] URINE RBC'S 0-2 Negative, 0-2 /hpf 02/20/2021 8:55 PM LENS ASSORTER [facility] EPITHELIAL CELLS Large amount squamous /lpf 02/20/2021 8:55 PM LENS ASSORTER [facility] BACTERIA, URINE Many(A) Negative /hpf 02/20/2021 8:55 PM LENS ASSORTER [facility] Urine URINE SPECIMEN / Unknown Non-Phlebotomy Collection / Unknown 02/20/2021 8:36 PM LENS ASSORTER 02/20/2021 8:37 PM LENS ASSORTER Noe Crews PAC URINE ORDERABLES Fin al Result [facility] [address] [place] [address] * Lipase (02/20/2021 8:30 PM LENS ASSORTER) LIPASE 25.0 13 - 60 U/L 02/20/2021 8:54 PM LENS ASSORTER [facility] Blood Venipuncture / Unknown 02/20/2021 8:30 PM LENS ASSORTER 02/20/2021 8:35 PM LENS ASSORTER Noe Crews PAC CHEMISTRY ORDERABLES Final Result [facility] [place] [address] * POCT Urine HCG () (02/20/2021 8:17 PM LENS ASSORTER) POC URINE Negative POC URINE CONTROL Real Estate Firm Manager Pass Urine 02/20/2021 8:17 PM LENS ASSORTER Noe Crews PAC POINT OF CARE TESTIN G (MANUAL) Final Result documented in this encounter Visit Diagnoses Diagnosis Acute appendicitis- Primary Acute appendicitis without mention of peritonitis Umbilical hernia without obstruction and without gangrene Acute appendicitis Acute appendicitis without mention of peritonitis Acute cystitis without hematuria Acute cystitis Gastroesophageal reflux disease without esophagitis Esophageal reflux Anxiety and depression Dysthymic disorder Tobacco dependence syndrome Tobacco use disorder Umbilical hernia without obstruction and without gangrene Morbid obesity (HCC) Morbid obesity documented in this encounter Admitting Diagnoses Diagnosis Umbilical hernia without obstruction and without gangrene Acute appendicitis Acute appendicitis without mention of peritonitis documented in this encounter Administered Medications Inactive Administered Medications - up to 3 most recent administrations Medication Order MAR Action Action Date Dose Rate Site 0.9 % sodium chloride solution at 250 mL/hr, Intravenous, ONCE, 1 dose, On Fri02/20/21 at 2000 02/20/2021 8:36 PM LENS ASSORTER 250 mL/hr 0.9 % sodium chloride solution at 250 mL/hr, Intravenous, ONCE, 1 dose, On Fri02/20/21 at 2300 02/21/2021 12:58 AM LENS ASSORTER 250 mL/hr 0.9 % sodium chloride solution at 100 mL/hr, Intravenous, CONTINUOUS, Starting on Fri02/21/21 at 0000, Until Fri02/22/21 at 1406 02/22/2021 4:50 AM LENS ASSORTER 100 mL/hr 02/21/2021 6:10 PM LENS ASSORTER 100 mL/hr 02/21/2021 12:58 AM LENS ASSORTER 100 mL/hr acetaminophen (TYLENOL) suppository 650 mg 650 mg, Rectal, EVERY 4 HOURS PRN, Starting on Fri02/20/21 at 2315, Until Fri02/22/21 at 1406, Mild pain or more severe pain if patient requests, Fever, If patient is taking oral intake without complications and both PO/VA orders are active, administer through the oral route. acetaminophen (TYLENOL) tablet 650 mg 650 mg, Oral, EVERY 4 HOURS PRN, Starting on Fri02/20/21 at 2315, Until Fri02/22/21 at 1406, Mild pain or more severe pain if patient requests, Fever, If patient is taking oral intake without complications and both PO/VA orders are active, administer through the oral route. aluminum & magnesium hydroxide-simethicone (MAALOX, MYLANTA) 200-200-20 MG/5ML SUSP 20 mL 20 mL, Oral, EVERY 6 HOURS PRN, Starting on Fri02/20/21 at 2315, Until Fri02/22/21 at 1406, Indigestion, Heartburn, Shake well. calcium carbonate (TUMS) chewable tablet 1,000 mg 1,000 mg, Oral, EVERY 8 HOURS PRN, Starting on Fri02/20/21 at 2315, Until Fri02/22/21 at 1406, Heartburn, Indigestion diphenhydrAMINE (BENADRYL) capsule 25 mg 25 mg, Oral, EVERY 6 HOURS PRN, Starting on Fri02/21/21 at 0201, Until Fri02/22/21 at 1406, Itching famotidine (PEPCID) injection 10 mg 10 mg, Intravenous, 2 TIMES DAILY, First dose on Fri02/21/21 at 0230, Until Discontinued, Indications: Stress Ulcer Prophylaxis, Symptomatic Gastroesophageal Reflux DiseaseIndications:Stress Ulcer Prophylaxis,Symptomatic Gastroesophageal Reflux Disease Given 02/22/2021 7:25 AM LENS ASSORTER 10 mg Given 02/21/2021 8:41 PM LENS ASSORTER 10 mg Given 02/21/2021 10:07 AM LENS ASSORTER 10 mg famotidine (PEPCID) injection 20 mg 20 mg, Intravenous, ONCE, 1 dose, On Fri02/20/21 at 2000, Indications: Symptomatic Gastroesophageal Reflux DiseaseIndications:Symptomatic Gastroesophageal Reflux Disease Given 02/20/2021 8:38 PM LENS ASSORTER 20 mg fentaNYL (PF) (SUBLIMAZE) injection 50 mcg 50 mcg, Intravenous, ONCE, 1 dose, On Fri02/20/21 at 2300 Given 02/20/2021 11:14 PM LENS ASSORTER 50 mcg HYDROcodone-acetaminophen (NORCO) 5-325 MG per tablet 1 Tablet 1 Tablet, Oral, EVERY 4 HOURS PRN, Starting on Fri02/21/21 at 1429, Until Fri02/22/21 at 1406, Moderate pain or more severe pain if patient requests, Maximum dose of acetaminophen is 4000 mg from all sources in 24 hours.If pain not effectively managed, then contact provider to discuss possibly 1) adding scheduled opioid dosing or non-opioid pain treatments, 2) increasing dosage, or 3) changing to SENIOR MARKET RESEARCH ANALYST. Give 1 Tablet for moderate pain rating of 4-6 Give 2 Tablets for severe pain rating 7-10 HYDROmorphone (DILAUDID) injection 0.5 mg 0.5 mg, Intravenous, EVERY 2 HOURS PRN, Starting on Fri02/21/21 at 0200, Until Fri02/22/21 at 1406, Severe pain, If pain not effectively managed, then contact provider to discuss possibly 1) adding scheduled opioid dosing or non-opioid pain treatments, 2) increasing dosage, or 3) changing to SENIOR MARKET RESEARCH ANALYST. Given 02/21/2021 10:0 7 AM LENS ASSORTER 0.5 mg Given 02/21/2021 2:12 AM LENS ASSORTER 0.5 mg iopamidol (ISOVUE-370) 76 % injection 111 mL 111 mL, Intravenous, ONCE, 1 dose, On Fri02/20/21 at 2200 Given 02/20/2021 10:00 PM LENS ASSORTER 111 mL ketorolac (TORADOL) injection 15 mg 15 mg, Intravenous, EVERY 6 HOURS PRN, Starting on Fri02/20/21 at 2317, Until Fri02/22/21 at 1406, Mild pain or more severe pain if patient requests Given 02/22/2021 11:15 AM LENS ASSORTER 15 mg Given 02/22/2021 1:41 AM LENS ASSORTER 15 mg Given 02/21/2021 7:27 AM LENS ASSORTER 15 mg ketorolac (TORADOL) injection 15 mg 15 mg, Intravenous, EVERY 6 HOURS, 5 doses, First dose on Fri02/21/21 at 1500, Last dose on Fri02/22/21 at 1500 Given 02/22/2021 7:24 AM LENS ASSORTER 15 mg Given 02/21/2021 8:42 PM LENS ASSORTER 15 mg Given 02/21/2021 3:43 PM LENS ASSORTER 15 mg levoFLOXacin (LEVAQUIN) tablet 750 mg 750 mg, Oral, DAILY, First dose on Fri02/20/21 at 2300, Until Discontinued, Indications: Intra-Abdominal InfectionIndications:Intra-Abdominal Infection Given 02/21/2021 8:41 PM LENS ASSORTER 750 mg Given 02/20/2021 11:14 PM LENS ASSORTER 750 mg loratadine (CLARITIN) tablet 10 mg 10 mg, Oral, DAILY, First dose on Fri02/21/21 at 0900, Until Discontinued Given 02/22/2021 7:25 AM LENS ASSORTER 10 mg Given 02/21/2021 10:07 AM LENS ASSORTER 10 mg magnesium hydroxide (MILK OF MAGNESIA) 400 MG/5ML suspension 30 mL 30 mL, Oral, DAILY PRN, Starting on Fri02/20/21 at 2315, Until Fri02/22/21 at 1406, Constipation - 2nd line, Magnesium hydroxide 400 mg/5 ml = 166.7 mg elemental magnesium/5ml. Hold for loose stools (loose, liquid, mucoid, soft, watery stool that takes the shape of the container) or greater than 2 moderate or larger stools in 24hrsIndications:Constipation melatonin tablet 6 mg 6 mg, Oral, NIGHTLY PRN, Starting on Fri02/20/21 at 2315, Until Fri02/22/21 at 1406, Other, Sleep metoclopramide (REGLAN) injection 5 mg 5 mg, Intravenous, EVERY 6 HOURS PRN, Starting on Fri02/20/21 at 2315, Until Fri02/22/21 at 1406, Nausea - 3rd line, Third Line Antiemetic Give if nausea/vomiting recurs after ondansetron. Given 02/21/2021 1:24 PM LENS ASSORTER 10 mg metroNIDAZOLE (FLAGYL) tablet 500 mg 500 mg, Oral, ONCE, 1 dose, On Fri02/20/21 at 2300, Indications: Intra-Abdominal InfectionIndications:Intra-Abdominal Infection Given 02/20/2021 11:14 PM LENS ASSORTER 500 mg nicotine (NICODERM CQ) 14 MG/24HR patch 1 Patch 1 Patch, Transdermal, DAILY, First dose on Fri02/20/21 at 2330, Until Discontinued, Administer over 24 Hours, Use if smokeless less than 10 cigarettes/day. ondansetron (ZOFRAN) injection 4 mg 4 mg, Intravenous, EVERY 6 HOURS PRN, Starting on Fri02/20/21 at 2315, Until Chelo 02/22/21 at 1406, Nausea - 1st line, 1. First Line Antiemetic. 2. Use Injection only if patient unable to tolerate oral medications. Given 02/21/2021 7:40 PM LENS ASSORTER 4 mg Given 02/21/2021 11:53 AM LENS ASSORTER 4 mg Given 02/21/2021 2:12 AM LENS ASSORTER 4 mg ondansetron (ZOFRAN-ODT) disintegrating tablet 4 mg 4 mg, Oral, EVERY 6 HOURS PRN, Starting on Fri02/20/21 at 2315, Until Chelo 02/22/21 at 1406, Nausea - 1st line, 1. First Line Antiemetic. 2. Use PO form unless unable to tolerate PO medications, then use Injection polyethylene glycol (GLYCOLAX, MIRALAX) packet 17 g 17 g, Oral, 2 TIMES DAILY PRN, Starting on Fri02/20/21 at 2315, Until Chelo 02/22/21 at 1406, Constipation - 1st line, Dilute dose in 120 - 240 mL of beverage.Hold for loose stools (loose, liquid, mucoid, soft, watery stool that takes the shape of the container) or greater than 2 moderate or larger stools in 24hrsIndications:Constipation Prochlorperazine Edisylate (COMPAZINE) injection 5 mg 5 mg, Intravenous, EVERY 6 HOURS PRN, Starting on Fri02/20/21 at 2315, Until Chelo 02/22/21 at 1406, Nausea - 2nd line, Second Line Antiemetic Give if nausea/vomiting recurs after ondansetron. Given 02/21/2021 3:43 PM LENS ASSORTER 5 mg Given 02/21/2021 7:16 AM LENS ASSORTER 5 mg TRANSDERMAL PATCH ACKNOWLEDGEMENT Miscellaneous, DAILY, First dose on Fri02/21/21 at 0900, Until Discontinued, This order is a communication order only. The patient has a nicotine transdermal patch. Please use the Acknowledged' JUN action when documenting on the MAR. venlafaxine (EFFEXOR-XR) XR capsule 150 mg 150 mg, Oral, DAILY, First dose on Fri02/21/21 at 0900, Until Discontinued, Do not crush. Given 02/22/2021 7:25 AM LENS ASSORTER 150 mg Given 02/21/2021 10:07 AM LENS ASSORTER 150 mg documented in this encounter Active and Recently Administered Medications Times are shown in LENS ASSORTER. Scheduled Medication Order 02/20/2021 02/21/2021 02/22/2021 0.9 % sodium chloride solution (COMPLETED) at 250 mL/hr, Intravenous, ONCE, 1 dose, On Fri02/20/21 at 2000 2036 (New Bag - Provider: Diana Shetty, RN) 0009 (Infusing on Transfer - Provider: Muna Llamas, RN)0600 (Stopped - Provider: Kj Lynn, RN) 0.9 % sodium chloride solution (COMPLETED) at 250 mL/hr, Intravenous, ONCE, 1 dose, On Fri02/20/21 at 2300 0058 (New Bag - Provider: Kj Ware RN)0600 (Stopped - Provider: Kj Lynn RN) famotidine (PEPCID) injection 10 mg 10 mg, Intravenous, 2 TIMES DAILY, First dose on Fri02/21/21 at 0230, Until Discontinued, Indications: Stress Ulcer Prophylaxis, Symptomatic Gastroesophageal Reflux Disease 0217 (Given - Provider: Kj Ware, GRETA)1007 (Given - Provider: Kj Lynn, GRETA)2041 (Given - Provider: Joyce Troncoso, GRETA) 0725 (Given - Provider: Kj Lynn, GRETA) famotidine (PEPCID) injection 20 mg (COMPLETED) 20 mg, Intravenous, ONCE, 1 dose, On Fri02/20/21 at 1999, Indications: Symptomatic Gastroesophageal Reflux Disease 2037 (Given - Provider: Diana Shetty RN) fentaNYL (PF) (SUBLIMAZE) injection 50 mcg (COMPLETED) 50 mcg, Intravenous, ONCE, 1 dose, On Fri02/20/21 at 2300 2314 (Given - Provider: Muna Llamas, GRETA) iopamidol (ISOVUE-370) 76 % injection 111 mL (COMPLETED) 111 mL, Intravenous, ONCE, 1 dose, On Fri02/20/21 at 2200 2200 (Given - Provider: Yannick Johansen, RTR) ketorolac (TORADOL) injection 15 mg 15 mg, Intravenous, EVERY 6 HOURS, 5 doses, First dose on Fri02/21/21 at 1500, Last dose on Fri02/22/21 at 1500 1543 (Given - Provider: Kj Lynn, GRETA)2042 (Given - Provider: Joyce Troncoso, GRETA) 0300 (Not Given - Provider: Joyce Troncoso RN - Reason: Patient/family refused)0724 (Given - Provider: Kj Lynn RN) levoFLOXacin (LEVAQUIN) tablet 750 mg 750 mg, Oral, DAILY, First dose on Fri02/20/21 at 2300, Until Discontinued, Indications: Intra-Abdominal Infection 2314 (Given - Provider: Muna Llamas, GRETA) 204 (Given - Provider: Joyce Troncoso, GRETA) loratadine (CLARITIN) tablet 10 mg 10 mg, Oral, DAILY, First dose on Fri02/21/21 at 0900, Until Discontinued 1007 (Given - Provider: Kj Lynn RN) 0725 (Given - Provider: Kj Lynn RN) metroNIDAZOLE (FLAGYL) tablet 500 mg (COMPLETED) 500 mg, Oral, ONCE, 1 dose, On Fri02/20/21 at 2300, Indications: Intra-Abdominal Infection 2314 (Given - Provider: Muna Llamas, GRETA) nicotine (NICODERM CQ) 14 MG/24HR patch 1 Patch 1 Patch, Transdermal, DAILY, First dose on Fri02/20/21 at 2330, Until Discontinued, Administer over 24 Hours, Use if smokeless less than 10 cigarettes/day. 2330 (Not Given - Provider: Kj Ware RN - Reason: Patient/family refused) 1011 (Not Given - Provider: Kj Lynn RN - Reason: Patient/family refused) 0800 (Not Given - Provider: Kj Lynn RN - Reason: Patient/family refused) TRANSDERMAL PATCH ACKNOWLEDGEMENT Miscellaneous, DAILY, First dose on Fri02/21/21 at 0900, Until Discontinued, This order is a communication order only. The patient has a nicotine transdermal patch. Please use the Acknowledged' JUN action when documenting on the MAR. 0900 (Acknowledged - Provider: Kj Lynn, GRETA) 0800 (Acknowledged - Provider: Kj Lynn RN) venlafaxine (EFFEXOR-XR) XR capsule 150 mg 150 mg, Oral, DAILY, First dose on Fri02/21/21 at 0900, Until Discontinued, Do not crush. 1007 (Given - Provider: Kj Lynn, RN) 0725 (Given - Provider: Kj Lynn, RN) Continuous Medication Order 02/20/2021 02/21/2021 02/22/2021 0.9 % sodium chloride solution at 100 mL/hr, Intravenous, CONTINUOUS, Starting on Fri02/21/21 at 0000, Until Chelo 02/22/21 at 1406 0058 (New Bag - Provider: Kj Ware RN)1810 (New Bag - Provider: Kj Lynn RN) 0448 (Stopped - Provider: Joyce Troncoso, RN)0450 (New Bag - Provider: Joyce Troncoso, RN)1015 (Stopped - Provider: Kj Lynn RN) PRN Medication Order 02/20/2021 02/21/2021 02/22/2021 acetaminophen (TYLENOL) suppository 650 mg(Linked Group 1) 650 mg, Rectal, EVERY 4 HOURS PRN, Starting on Fri02/20/21 at 2315, Until Chelo 02/22/21 at 1406, Mild pain or more severe pain if patient requests, Fever, If patient is taking oral intake without complications and both PO/VA orders are active, administer through the oral route. acetaminophen (TYLENOL) tablet 650 mg(Linked Group 1) 650 mg, Oral, EVERY 4 HOURS PRN, Starting on Fri02/20/21 at 2315, Until Chelo 02/22/21 at 1406, Mild pain or more severe pain if patient requests, Fever, If patient is taking oral intake without complications and both PO/VA orders are active, administer through the oral route. aluminum & magnesium hydroxide-simethicone (MAALOX, MYLANTA) 200-200-20 MG/5ML SUSP 20 mL 20 mL, Oral, EVERY 6 HOURS PRN, Starting on Fri02/20/21 at 2315, Until Chelo 02/22/21 at 1406, Indigestion, Heartburn, Shake well. bupivacaine (PF) (MARCAINE PF) 0.5 % injection (CANCELED) ONCE (in OR), Starting on Fri02/21/21 at 1412, Until Fri02/21/21 at 1429, INTRA-OP 1412 (Given - Provider: Rm Butler MD - Comment: mixed wtih 20ml lidocaine) calcium carbonate (TUMS) chewable tablet 1,000 mg 1,000 mg, Oral, EVERY 8 HOURS PRN, Starting on Fri02/20/21 at 2315, Until Fri02/22/21 at 1406, Heartburn, Indigestion diphenhydrAMINE (BENADRYL) capsule 25 mg 25 mg, Oral, EVERY 6 HOURS PRN, Starting on Fri02/21/21 at 0201, Until Fri02/22/21 at 1406, Itching HYDROcodone-acetaminophen (NORCO) 5-325 MG per tablet 1 Tablet 1 Tablet, Oral, EVERY 4 HOURS PRN, Starting on Fri02/21/21 at 1429, Until Fri02/22/21 at 1406, Moderate pain or more severe pain if patient requests, Maximum dose of acetaminophen is 4000 mg from all sources in 24 hours.If pain not effectively managed, then contact provider to discuss possibly 1) adding scheduled opioid dosing or non-opioid pain treatments, 2) increasing dosage, or 3) changing to SENIOR MARKET RESEARCH ANALYST. Give 1 Tablet for moderate pain rating of 4-6 Give 2 Tablets for severe pain rating 7-10 HYDROmorphone (DILAUDID) injection 0.5 mg 0.5 mg, Intravenous, EVERY 2 HOURS PRN, Starting on Fri02/21/21 at 0200, Until Fri02/22/21 at 1406, Severe pain, If pain not effectively managed, then contact provider to discuss possibly 1) adding scheduled opioid dosing or non-opioid pain treatments, 2) increasing dosage, or 3) changing to SENIOR MARKET RESEARCH ANALYST. 0212 (Given - Provider: Kj Ware RN)1007 (Given - Provider: Kj Lynn, GRETA) ketorolac (TORADOL) injection 15 mg 15 mg, Intravenous, EVERY 6 HOURS PRN, Starting on Fri02/20/21 at 2317, Until Fri02/22/21 at 1406, Mild pain or more severe pain if patient requests 0058 (Given - Provider: Kj Ware RN)0727 (Given - Provider: Kj Lynn, GRETA) 0141 (Given - Provider: Joyce Troncoso RN)1115 (Given - Provider: Gracia Rodriguez RN) lidocaine-EPINEPHrine 1 %-1:[id number] injection (CANCELED) ONCE (in OR), Starting on Fri02/21/21 at 1412, Until Fri02/21/21 at 1429, INTRA-OP 1412 (Given - Provider: Rm Butler MD - Comment: mixed with 20ml bupivicaine) magnesium hydroxide (MILK OF MAGNESIA) 400 MG/5ML suspension 30 mL 30 mL, Oral, DAILY PRN, Starting on Fri02/20/21 at 2315, Until Fri02/22/21 at 1406, Constipation - 2nd line, Magnesium hydroxide 400 mg/5 ml = 166.7 mg elemental magnesium/5ml. Hold for loose stools (loose, liquid, mucoid, soft, watery stool that takes the shape of the container) or greater than 2 moderate or larger stools in 24hrs melatonin tablet 6 mg 6 mg, Oral, NIGHTLY PRN, Starting on Fri02/20/21 at 2315, Until Fri02/22/21 at 1406, Other, Sleep metoclopramide (REGLAN) injection 5 mg 5 mg, Intravenous, EVERY 6 HOURS PRN, Starting on Fri02/20/21 at 2315, Until Fri02/22/21 at 1406, Nausea - 3rd line, Third Line Antiemetic Give if nausea/vomiting recurs after ondansetron. 1324 (Given - Provider: Hunter Guerrero, CROP NUTRITION SCIENTIST, FIELD ASSEMBLY SUPERVISOR) ondansetron (ZOFRAN) injection 4 mg(Linked Group 2) 4 mg, Intravenous, EVERY 6 HOURS PRN, Starting on Fri02/20/21 at 2315, Until Fri02/22/21 at 1406, Nausea - 1st line, 1. First Line Antiemetic. 2. Use Injection only if patient unable to tolerate oral medications. 0212 (Given - Provider: Kj Ware, GRETA)1153 (Given - Provider: Kj Lynn, GRETA)1940 (Given - Provider: Joyce Troncoso RN) ondansetron (ZOFRAN-ODT) disintegrating tablet 4 mg(Linked Group 2) 4 mg, Oral, EVERY 6 HOURS PRN, Starting on Fri02/20/21 at 2315, Until Fri02/22/21 at 1406, Nausea - 1st line, 1. First Line Antiemetic. 2. Use PO form unless unable to tolerate PO medications, then use Injection 0212 (See Alternative - Provider: Kj Ware RN)1153 (See Alternative - Provider: Kj Lynn RN)1940 (See Alternative - Provider: Joyce Troncoso RN) polyethylene glycol (GLYCOLAX, MIRALAX) packet 17 g 17 g, Oral, 2 TIMES DAILY PRN, Starting on Fri02/20/21 at 2315, Until Chelo 02/22/21 at 1406, Constipation - 1st line, Dilute dose in 120 - 240 mL of beverage.Hold for loose stools (loose, liquid, mucoid, soft, watery stool that takes the shape of the container) or greater than 2 moderate or larger stools in 24hrs Prochlorperazine Edisylate (COMPAZINE) injection 5 mg 5 mg, Intravenous, EVERY 6 HOURS PRN, Starting on Fri02/20/21 at 2315, Until Chelo 02/22/21 at 1406, Nausea - 2nd line, Second Line Antiemetic Give if nausea/vomiting recurs after ondansetron. 0716 (Given - Provider: Kj Lynn RN)1543 (Given - Provider: Kj Lynn RN) Linked Groups Order Group 1: acetaminophen (TYLENOL) tablet 650 mgJump to med 650 mg, Oral, EVERY 4 HOURS PRN, Starting on Fri02/20/21 at 2315, Until Chelo 02/22/21 at 1406, Mild pain or more severe pain if patient requests, Fever, If patient is taking oral intake without complications and both PO/VA orders are active, administer through the oral route. Or acetaminophen (TYLENOL) suppository 650 mgJump to med 650 mg, Rectal, EVERY 4 HOURS PRN, Starting on Fri02/20/21 at 2315, Until Chelo 02/22/21 at 1406, Mild pain or more severe pain if patient requests, Fever, If patient is taking oral intake without complications and both PO/VA orders are active, administer through the oral route. Group 2: ondansetron (ZOFRAN-ODT) disintegrating tablet 4 mgJump to med 4 mg, Oral, EVERY 6 HOURS PRN, Starting on Fri02/20/21 at 2315, Until Chelo 02/22/21 at 1406, Nausea - 1st line, 1. First Line Antiemetic. 2. Use PO form unless unable to tolerate PO medications, then use Injection Or ondansetron (ZOFRAN) injection 4 mgJump to med 4 mg, Intravenous, EVERY 6 HOURS PRN, Starting on Fri02/20/21 at 2315, Until Chelo 02/22/21 at 1406, Nausea - 1st line, 1. First Line Antiemetic. 2. Use Injection only if patient unable to tolerate oral medications. documented in this encounter Care Teams Sterile Proc Tech Relationship Specialty Start Date End Date Ousmane Gan MD #[address] [address] PCP - General Family Medicine 10/24/20 04/08/21 Paco Reagan APRN, SUPERVISOR SHOP #[address] [address] Nurse Practitioner Advanced Practice Nurse 10/24/20 documented as of this encounter
--- OUTSIDE RECORDS SUMMARY | 2024-04-17 13:53 | XMS_ITS | Encounter Summary ---
Author Organization [facility] Address [address] 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 No / Unsure 02/21/2021 9:48 AM DIRECTOR CORPORATE SALES documented as of this encounter Miscellaneous Notes * Telephone Encounter - Valentina Benítez RN - 03/05/2021 12:49 PM CST Called patient to f/u regarding her status. Pt answered the phone; I introduced myself and explained my reason for calling. Pt states she is doing pretty good but is still sore. The glue has come off of the trochar sites; they are almost completely healed. She has a f/u appointment with Dr Butler on 03/07/21. Her appointment with the PCP Paco Reagan was cancelled per Paco without a reason. She was not rescheduled for alater time nor offered an appointment with another CELLOPHANE BAG MACHINE OPERATOR/MD in the office. I instructed pt to call andspeak with the chief business development officer; she verbalized understanding and stated she will. She c/o having poor pain control on some days and is out of Strawberry. I asked the patient to tell me what she takes and how much. She is taking ibuprofen 800 mg in the morning and then 1000 mg of extra strength tylenol at bedtime. I suggested the ibuprofen in the morning, tylenol in the afternoon and another ibuprofen at bedtime. Pt stated she will and thanked me. Pt denies having any other questions or concerns when asked. I will no longer need to f/u on pt. CTOR CORPORATE SALES documented in this encounter Plan of Treatment Upcoming Encounters Date Type Department Care Team (Late st Contact Info) Description 04/28/2024 10:00 AM DIRECTOR CORPORATE SALES Appointment [facility] Cardiology [address] [place] [address] Karen Andino APRN, CREAM BUYER [address] [place] [phone] Discharge Disposition: Discharged to home or Selfcare 06/02/2024 10:00 AM DIRECTOR CORPORATE SALES Office Visit [facility] - [facility] [address] [place] [address] Kelin Castle, PAC [address] [place] [address] documented as of this encounter Visit Diagnoses Not on filedocumented in this encounter Care Teams Furniture Manager Relationship Specialty Start Date End Date Ousmane Gan MD #[address] [address] PCP - General Family Medicine 10/24/20 04/08/21 Paco Reagan APRN, CREAM BUYER #[address] [address] Nurse Practitioner Advanced Practice Nurse 10/24/20 documented as of this encounter
--- OUTSIDE RECORDS SUMMARY | 2024-04-17 13:53 | XMS_ITS | Encounter Summary ---
Author Organization [facility] Care Team Providers Care Recovery Room Nurse Name Role Phone Ousmane Gan MD Primary Care Provider [phone] Paco Reagan APRN, SAND CASTER Unavailable Encounter Details Date Type Department Care Team (Latest Contact Info) Description 12/29/2020 Travel Social History Tobacco Use Types Packs/Day [...] CDT Legal Sex Female 2:47 AM MECHANICAL ENGINEERING PROFESSOR Gender Identity Female 11/25/2022 4:06 PM CDT Sexual Orientation Not on file Occupation Industry Job Start Date Job End Date [employer] Not on file Not on file Not on file COVID-19 Exposure Response Date Recorded In the last month, have you been in contact with someone who was confirmed or suspected to have Coronavirus / COVID-19? No / Unsure 12/29/2020 10:28 AM CDT documented as of this encounter Plan of Treatment Upcoming Encounters Date Type Department Care Team (Late st Contact Info) Description 04/28/2024 10:00 AM MECHANICAL ENGINEERING PROFESSOR Appointment [facility] Cardiology [address] [place] [address] Karen Andino APRN, SAND CASTER [address] [place] [address] Discharge Disposition: Discharged to home or Selfcare 06/02/2024 10:00 AM MECHANICAL ENGINEERING PROFESSOR Office Visit [facility] - [facility] [address] [place] [address] Kelin Castle, PAC [address] [place] [address] documented as of this encounter Visit Diagnoses Not on filedocumented in this encounter Care Teams Recovery Room Nurse Relationship Specialty Start Date End Date Ousmane Gan MD #[address] [address] PCP - General Family Medicine 10/24/20 04/08/21 Paco Reagan, RYAN, SAND CASTER #[address] [address] Nurse Practitioner Advanced Practice Nurse 10/24/20 documented as of this encounter
--- OUTSIDE RECORDS SUMMARY | 2024-04-17 13:53 | XMS_ITS | Encounter Summary ---
Author Organization [facility] Address [address] [place] [address] Phone Care Team Providers Care Legal Editor Name Role Phone Ousmane Gan MD Primary Care Provider [phone] Paco Reagan APRN, LOAD MANAGER Unavailable Reason for Visit * Reason Onset Date Comments called to cancel PT and OT today 01/09/2021 Encounter Details Date Type Department Care Team (Late st Contact Info) Description 01/09/2021 [facility]phone [facility] [address] [place] [address] Eli Tejada, PT [place] called to cancel PT and OT today Social History Tobacco Use Types Packs/Day Years [...] PM CDT Legal Sex Female 2:47 AM ONLINE MERCHANDISING COORDINATOR Gender Identity Female 11/25/2022 4:06 PM [...] encounter Miscellaneous Notes * Telephone Encounter - Eli Tejada, PT - 01/09/2021 10:19 AM CDT Patient called to cancel PT today due to her baby sitting backing out on her today. documented in this encounter Plan of Treatment Upcoming Encounters Date Type Department Care Team (Late st Contact Info) Description 04/28/2024 10:00 AM ONLINE MERCHANDISING COORDINATOR [facility]ointment [facility] Cardiology [address] [place] [address] Karen Andino APRN, LOAD MANAGER [address] [place] [address] Discharge Disposition: Discharged to home or Selfcare 06/02/2024 10:00 AM ONLINE MERCHANDISING COORDINATOR [facility] [address] [place] [address] Kelin Castle, PAC [address] [place] [address] documented as of this encounter Visit Diagnoses Not on filedocumented in this encounter Care Teams Legal Editor Relationship Specialty Start Date End Date Ousmane Gan MD #[address] [address] PCP - General Family Medicine 10/24/20 04/08/21 Paco Reagan APRN, LOAD MANAGER #[address] [address] Nurse Practitioner Advanced Practice Nurse 10/24/20 documented as of this encounter
--- OUTSIDE RECORDS SUMMARY | 2024-04-17 13:53 | XMS_ITS | Encounter Summary ---
Author Organization [facility] Address [address] [place] [address] Phone Care Team Providers Care Kier Boiler Name Role Phone Ousmane Gan MD Primary Care Provider [phone] Paco Reagan APRN, POOL HALL INSPECTOR Unavailable Reason for Visit * Auth/Cert Specialty Diagnoses / Procedures Referred By Ariana knight Referred To Contact Diagnoses Acute appendicitis Umbilical hernia without obstruction and without gangrene Referral ID Status Reason Start Date Expiration Date Visits Re quested Visits Authorized [id number] 1 1 Encounter Details Date Type Department Care Team (Late st Contact Info) Description 02/21/2021 1:22 PM ELECTRO MECHANICAL SOLAR TECHNICIAN Anest[facility] Periop [address] [place] [address] Hunter Guerrero APRN, PAPER AND PULP MILL OPERATOR [address] [place] [address] Anesthesia Record Procedure Summary Procedure Name Responsible Anesthesiologist Anesthesia Start Time Anesthesia Stop Time LAPAROSCOPIC APPENDECTOMY (Abdomen) Hunter Guerrero APRN, PAPER AND PULP MILL OPERATOR 02/21/21 1322 02/21/21 1435 Events Date Time Event Comment 02/21/2021 1228 1322 An Start 1323 An Start Data 1323 ANASSESSCMPLT 1323 An Induction 1325 Intubation 1325 Anesthesia Ready 1424 An Extubation 1424 Stop Data Collection 1424 Transort to Postop 1435 Handoff to RN I completed my SBAR handoff to the receiving nurse. Last vitals BP: 135/80 Temp: 36.2 ??C (97.2 ??F) Pulse: 76 Resp: 18 SpO2: 95 % 1435 An Stop Last vitals: BP : 135/80 Temp: 36.2 ??C (97.2 ??F) Pulse: 76 Resp: 18 SpO2: 95 % Meds Name Total propofol 10 mg/mL 640,880 mcg lidocaine 1 % 250 mg succinylcholine 20 mg/mL 100 mg dexamethasone 10 mg/mL 10 mg esmolol 10 mg/mL 40 mg diphenhydrAMINE 50 mg/mL 20 mg metoclopramide (REGLAN) injection 5 mg 1 0 mg lactated ringers 1,000 mL * Agents Name FiO2 (%) FexpO2 (%) Inspired CO2 (mmHg) ETCO2 (mmHg) Inspired N2O (%) N2O (%) Sevoflurane (%) Inspired Sevoflurane (%) * Blood No blood administrations on file. Lines, Drains, and Airways Type Details Placement Removal RETIRED Incision 07/04/17; 1431; Left ; upper; back; 11/29/21 (Removed & Completed by utility. See Epic RA 4054); 1747 (Removed & Completed by utility. See Epic RA 4054) 07/04/17 1431 by Mason Jorge RN 11/29/21 1747 by Walter Pandey RETIRED Incision 04/29/18; 1234; Righ t; posterior; wrist; vertical; 11/29/21 (Removed & Completed by utility. See Epic RA 4054); 1747 (Removed & Completed by utility. See Epic RA 4054) 04/29/18 1234 by Roxy Lake RN 11/29/21 1747 by Walter Pandey RETIRED Incision 04/29/18; 1238; Righ t; hand; vertical; 11/29/21 (Removed & Completed by utility. See Epic RA 4054); 1747 (Removed & Completed by utility. See Epic RA 4054) 04/29/18 1238 by Roxy Lake RN 11/29/21 1747 by Walter Pandey RETIRED Incision 02/18/19; 1226; Righ t; lower; back; horizontal; 11/29/21 (Removed & Completed by utility. See Epic RA 4054); 1747 (Removed & Completed by utility. See [facility] RA 4054) 02/18/19 1226 by Roxy Lake RN 11/29/21 1747 by Walter Pandey RETIRED Incision 02/18/19; 1235; Left ; lower; back; horizontal; 11/29/21 (Removed & Completed by utility. See [facility] RA 4054); 1747 (Removed & Completed by utility. See [facility] RA 4054) 02/18/19 1235 by Roxy Lake RN 11/29/21 1747 by Walter Pandey RETIRED Peripheral IV Line - Single Lumen 02/21/21; 0710; median vein (underside of arm), left; [id number] catheter system; 20 gauge; no longer indicated, removed per policy/procedure, catheter/device intact; 02/22/21; 1017 02/21/21 0710 by Kj Lynn RN 02/22/21 1017 by Kj Lynn, GRETA RETIRED Incision 02/21/21; 1341; abdo men; laparoscopic punctures; 3 PUNCTURES; 11/29/21 (Removed & Completed by utility. See [facility] RA 4054); 1747 (Removed & Completed by utility. See [facility] 4054) 02/21/21 1341 by Brenda Presley RN 11/29/21 1747 by Walter Pandey RETIRED Airway 02/21/21; 1349 (gomez fowler via procedure documentation); 7; 02/21/21; 1424 02/21/21 1349 by Hunter Guerrero APRN PAPER AND PULP MILL OPERATOR 02/21/21 1424 by Hunter Guerrero APRN, PAPER AND PULP MILL OPERATOR documented in this encounter Social History Tobacco Use Types Packs/Day Years [...] PM CDT Legal Sex Female 2:47 AM ELECTRO MECHANICAL SOLAR TECHNICIAN Gender Identity Female 11/25/2022 4:06 PM [...] COVID-19? No / Unsure 02/21/2021 9:48 AM ELECTRO MECHANICAL SOLAR TECHNICIAN documented as of this encounter OR Notes * Anesthesia Postprocedure Evaluation - Hunter Guerrero APRN, CRNA - 02/21/2021 2:56 PM CST Patient: Esther Day Procedure Summary Date: 02/21/21 Room / Location: [facility] MAIN OR 02 / [facility] Anesthesia Start: 1322 Anesthesia Stop: 1435 Procedures: LAPAROSCOPIC APPENDECTOMY (N/A Abdomen) LAPAROSCOPIC UMBILICAL HERNIA REPAIR- NO MESH (N/A Abdomen) Diagnosis: (APPENDICITIS, UMBILICAL HERNIA) Surgeons: Rm Butler MD Responsible Provider: Hunter Guerrero APRN, CRNA Anesthesia Type: general ASA Status: 3 Anesthesia Type: general Last vitals Vitals Value Taken Time BP Temp Pulse Resp SpO2 95 % 02/21/21 1430 Pain score: 0 Pain management: adequate Patient location during evaluation: PACU Patient participation: Sufficiently recovered to participate Level of consciousness: sleepy but conscious Cardiovascular status: acceptable Respiratory status: acceptable Hydration status: acceptable Comments: Vital signs on nursing flowsheet Anesthetic complications: no Airway patency: patent Nausea and Vomiting: none TRO MECHANICAL SOLAR TECHNICIAN * Anesthesia Procedure Notes - Hunter Guerrero APRN, CRNA - 02/21/2021 1:48 PM CSTAssociated Order(s): Intubation in OR Intubation in OR Staffing Performed: resident/PAPER AND PULP MILL OPERATOR Resident/PAPER AND PULP MILL OPERATOR: Hunter Guerrero APRN, CRNA Overall Difficulty: Easy Procedure Details Ease of mask ventilation: easy Intubation Site: oral Tube Type: Standard Cuffed: yes Intubation Method: Direct laryngoscopy Cricoid Pressure: No Rapid Sequence: No Blade Used: Shahid Blade size: #2 Stylet Used: Yes Laryngeal View: Grade I Tube Size: 7 mmConfirmation: breath sounds and +EtCO2 Depth: 20 cm Atraumatic: Atraumatic intubation TRO MECHANICAL SOLAR TECHNICIAN * Anesthesia Preprocedure Evaluation - Hunter Guerrero APRN, CRNA - 02/21/2021 12:26 PM CST Anesthesia Evaluation Procedure Information Date/Time: 02/21/21 1240 Procedures: LAPAROSCOPIC APPENDECTOMY (N/A ) LAPAROSCOPIC UMBILICAL HERNIA REPAIR- NO MESH (N/A ) Location: [facility] MAIN OR [facility] Surgeons: Rm Butler MD Patient summary reviewed and Nursing notes reviewed No history of anesthetic complications No family history of anesthesia reaction Allergies: -- Augmentin (Amoxicillin-Pot Clavulanate) -- Rash and Itching -- Ceclor (Cefaclor) -- Hives and Rash -- Codeine -- Hives and Itching Patient allergies reviewed. Medications: Current Facility-Administered Medications: ??? 0.9 % sodium chloride solution, , Intravenous, Continuous, Edilma Longo MATRIX REPAIRER, POOL HALL INSPECTOR, Last Rate: 100 mL/hr at 02/21/21 0058, New Bag at 02/21/21 005 ??? acetaminophen (TYLENOL) tablet 650 mg, 650 mg, Oral, Q4H PRN OR acetaminophen (TYLENOL) suppository 650 mg, 650 mg, Rectal, Q4H PRN, Edilma Longo, MATRIX REPAIRER, POOL HALL INSPECTOR ? ? aluminum & magnesium hydroxide-simethicone (MAALOX, MYLANTA) 200-200-20 MG/5ML SUSP 20 mL, 20 mL, Oral, Q6H PRN, Edilma Longo, MATRIX REPAIRER, POOL HALL INSPECTOR ??? calcium carbonate (TUMS) chewable tablet 1,000 mg, 1,000 mg, Oral, Q8H PRN, Donta, Edilma, MATRIX REPAIRER, POOL HALL INSPECTOR ??? diphenhydrAMINE (BENADRYL) capsule 25 mg, 25 mg, Oral, Q6H PRN, Edilma Longo, MATRIX REPAIRER, POOL HALL INSPECTOR ??? famotidine (PEPCID) injection 10 mg, 10 mg, Intravenous, BID, Donta, Edilma, MATRIX REPAIRER, POOL HALL INSPECTOR, 10 mgat 02/21/21 1007 ??? HYDROmorphone (DILAUDID) injection 0.5 mg, 0.5 mg, Intravenous, Q2H PRN, Donta, Edilma, MATRIX REPAIRER,POOL HALL INSPECTOR, 0.5 mg at 02/21/21 1007 ??? ketorolac (TORADOL) injection 15 mg, 15 mg, Intravenous, Q6H PRN, Donta, Edilma, MATRIX REPAIRER, POOL HALL INSPECTOR, 15 mg at 02/21/21 0727 ??? levoFLOXacin (LEVAQUIN) tablet 750 mg, 750 mg, Oral, Daily, MarsNoe, PAC, 750 mg at 02/20/21 2314 ??? loratadine (CLARITIN) tablet 10 mg, 10 mg, Oral, Daily, Donta, Edilma, MATRIX REPAIRER, POOL HALL INSPECTOR, 10 mg at 02/21/21 1007 ??? magnesium hydroxide (MILK OF MAGNESIA) 400 MG/5ML suspension 30 mL, 30 mL, Oral, Daily PRN, Donta, Edilma, MATRIX REPAIRER, POOL HALL INSPECTOR ??? melatonin tablet 6 mg, 6 mg, Oral, Nightly PRN, Donta, Edilma, MATRIX REPAIRER, POOL HALL INSPECTOR ??? metoclopramide (REGLAN) injection 5 mg, 5 mg, Intravenous, Q6H PRN, Donta, Edilma, MATRIX REPAIRER, POOL HALL INSPECTOR ??? nicotine (NICODERM CQ) 14 MG/24HR patch 1 Patch, 1 Patch, Transdermal, Daily, Donta, Edilma, MATRIX REPAIRER, POOL HALL INSPECTOR ??? ondansetron (ZOFRAN-ODT) disintegrating tablet 4 mg, 4 mg, Oral, Q6H PRN OR ondansetron (ZOFRAN) injection 4 mg, 4 mg, Intravenous, Q6H PRN, Donta, Edilma, MATRIX REPAIRER, POOL HALL INSPECTOR, 4 mg at 02/21/21 1153 ??? polyethylene glycol (GLYCOLAX, MIRALAX) packet 17 g, 17 g, Oral, BID PRN, Donta, Edilma, MATRIX REPAIRER, POOL HALL INSPECTOR ??? Prochlorperazine Edisylate (COMPAZINE) injection 5 mg, 5 mg, Intravenous, Q6H PRN, Donta, Edilma, MATRIX REPAIRER, POOL HALL INSPECTOR, 5 mg at 02/21/21 0716 ??? TRANSDERMAL PATCH ACKNOWLEDGEMENT, , Miscellaneous, Daily, Edilma Longo APRN, POOL HALL INSPECTOR ??? venlafaxine (EFFEXOR-XR) XR capsule 150 mg, 150 mg, Oral, Daily, Edilma Longo APRN, POOL HALL INSPECTOR, 150 mg at 02/21/21 1007 Medications Prior to Admission: Acetaminophen (TYLENOL PO), Take 650 mg by mouth every 4 hours as needed., Disp: , Rfl: ergocalciferol (VITAMIN D) 16183 UNIT Capsule, Take 1 Capsule by mouth once a week. (Patient not taking: Reported on 02/21/2021), Disp: 12 Capsule, Rfl: 0 famotidine (PEPCID) 20 MG Tablet, Take 1 Tablet by mouth 2 times daily., Disp: 180 Tablet, Rfl: 1 glycopyrrolate (ROBINUL) 2 MG Tablet, Take 2 Tablets by mouth 2 times daily as needed (excessive sweating)., Disp: 360 Tablet, Rfl: 1 ibuprofen (MOTRIN) 800 MG Tablet, Take 1 Tablet by mouth every 8 hours as needed for Moderate or more severe pain., Disp: 270 Tablet, Rfl: 1 loratadine (CLARITIN) 10 MG Tablet, Take 10 mg by mouth., Disp: , Rfl: triamcinolone (KENALOG) 0.1 % Cream, APPLY TOPICALLY TWICE DAILY (Patient not taking: Reported on 02/21/2021), Disp: , Rfl: venlafaxine (EFFEXOR-XR) 150 MG CAPSULE SR 24 HR, Take 1 Capsule by mouth daily., Disp: 90 Capsule,Rfl: 1 Patient medications reviewed. Airway Mallampati: II TM distance: <3 FB Neck ROM: full Dental - normal exam Pulmonary - negative ROS and normal exam breath sounds clear to auscultation Cardiovascular - normal exam Exercise tolerance: poor Rhythm: regular Rate: normal Neuro/Psych (+) headaches, psychiatric history GI/Hepatic/Renal (+) GERD, Endo/Other Comments: BMI over 40 Risks, benefits, alternatives discussed with:patient. Anesthesia Plan ASA 3 general Additional Plan: Nerve block intravenous induction Anesthetic plan and risks discussed with Patient. Plan discussed with PAPER AND PULP MILL OPERATOR and surgeon. TRO MECHANICAL SOLAR TECHNICIAN documented in this encounter Miscellaneous Notes * Addendum Note - Hunter Guerrero APRN, CRNA - 02/21/2021 3:20 PM ELECTRO MECHANICAL SOLAR TECHNICIAN Addendum created 02/21/21 1520 by Hunter Guerrero APRN, CRNA Flowsheet accepted, Intraprocedure Flowsheets edited, Intraprocedure Meds edited TRO MECHANICAL SOLAR TECHNICIAN documented in this encounter Plan of Treatment Upcoming Encounters Date Type Department Care Team (Late st Contact Info) Description 04/28/2024 10:00 AM ELECTRO MECHANICAL SOLAR TECHNICIAN Appointment [facility] Cardiology Stress [address] [place] [address] Karen Andino APRN, POOL HALL INSPECTOR [address] [place] [address] Discharge Disposition: Discharged to home or Selfcare 06/02/2024 10:00 AM ELECTRO MECHANICAL SOLAR TECHNICIAN Office Visit [facility] - Family Medicine - [place] [address] [place] [address] Kelin Castle, PAC [address] [place] [address] documented as of this encounter Procedures Procedure Name Priority Date/Time Associated Diagnosis Comments INTUBATION IN OR Routine 02/21/2021 1:48 PM ELECTRO MECHANICAL SOLAR TECHNICIAN documented in this encounter Results * Intubation in OR (02/21/2021 1:48 PM ELECTRO MECHANICAL SOLAR TECHNICIAN) Narrative Hunter Guerrero APRN, CRNA - 02/21/2021 1:48 PM ELECTRO MECHANICAL SOLAR TECHNICIAN Hunter Guerrero APRN, CRNA ? 02/21/2021 ??1:49 PM Intubation in OR Staffing Performed: resident/PAPER AND PULP MILL OPERATOR Resident/PAPER AND PULP MILL OPERATOR: Hunter Guerrero APRN, CRNA Overall Difficulty: ??Easy Procedure Details Ease of mask ventilation: easy Intubation Site: oral Tube Type: ??Standard Cuffed: yes Intubation Method: ??Direct laryngoscopy Cricoid Pressure: ??No Rapid Sequence: ??No Blade Used: Shahid Blade size: #2 Stylet Used: ??Yes Laryngeal View: ??Grade I Tube Size: 7 mmConfirmation: breath sounds and +EtCO2 Depth: ??20 cm Atraumatic: ??Atraumatic intubation us Hunter Guerrero MATRIX REPAIRER, PAPER AND PULP MILL OPERATOR ANESTHESIA ORDERAB LES Final Result documented in this encounter Visit Diagnoses Not on filedocumented in this encounter Administered Medications Inactive Administered Medications - up to 3 most recent administrations Medication Order MAR Action Action Date Dose Rate Site dexamethasone (DECADRON) injection Intravenous, ONCE (in OR), Starting on Fri02/21/21 at 1324, Until Fri02/21/21 at 1456 Given 02/21/2021 1:24 PM ELECTRO MECHANICAL SOLAR TECHNICIAN 10 mg diphenhydrAMINE (BENADRYL) injection Intravenous, ONCE (in OR), Starting on Fri02/21/21 at 1324, Until Fri02/21/21 at 1456 Given 02/21/2021 1:24 PM ELECTRO MECHANICAL SOLAR TECHNICIAN 20 mg esmolol injection SOLN Intravenous, ONCE (in OR), Starting on Fri02/21/21 at 1323, Until Fri02/21/21 at 1456 Given 02/21/2021 1:23 PM ELECTRO MECHANICAL SOLAR TECHNICIAN 40 mg lactated ringers infusion Intravenous, CONTINUOUS (in OR), Starting on Fri02/21/21 at 1322, Until Fri02/21/21 at 1519 New Bag 02/21/2021 1:22 PM ELECTRO MECHANICAL SOLAR TECHNICIAN 125 mL/hr lidocaine 1 % injection Intravenous, ONCE (in OR), Starting on Fri02/21/21 at 1323, Until Fri02/21/21 at 1456 Given 02/21/2021 1:43 PM ELECTRO MECHANICAL SOLAR TECHNICIAN 50 mg Given 02/21/2021 1:40 PM ELECTRO MECHANICAL SOLAR TECHNICIAN 50 mg Given 02/21/2021 1:33 PM ELECTRO MECHANICAL SOLAR TECHNICIAN 50 mg metoclopramide (REGLAN) injection 5 mg 5 mg, Intravenous, EVERY 6 HOURS PRN, Starting on 02/20/21 at 2315, Until Chelo 02/22/21 at 1406, Nausea - 3rd line, Third Line Antiemetic Give if nausea/vomiting recurs after ondansetron. Given 02/21/2021 1:24 PM ELECTRO MECHANICAL SOLAR TECHNICIAN 10 mg propofol (DIPRIVAN) injection Intravenous, ONCE (in OR), Starting on Fri02/21/21 at 1323, Until Fri02/21/21 at 1456 New Bag 02/21/2021 1:24 PM ELECTRO MECHANICAL SOLAR TECHNICIAN 100 mcg/kg/min 60.12 mL/hr Given 02/21/2021 1:23 PM ELECTRO MECHANICAL SOLAR TECHNICIAN 200 mg succinylcholine (ANECTINE) injection Intravenous, ONCE (in OR), Starting on Fri02/21/21 at 1323, Until Fri02/21/21 at 1456 Given 02/21/2021 1:23 PM ELECTRO MECHANICAL SOLAR TECHNICIAN 100 mg documented in this encounter Care Teams Kier Boiler Relationship Specialty Start Date End Date Ousmane Gan MD [address] [address] PCP - General Family Medicine 10/24/20 04/08/21 Paco Reagan APRN, POOL HALL INSPECTOR [address] [address] Nurse Practitioner Advanced Practice Nurse 10/24/20 documented as of this encounter
--- OUTSIDE RECORDS SUMMARY | 2024-04-17 13:53 | XMS_ITS | Encounter Summary ---
Author Organization [facility] Address [address] [place] [address] Phone Care Team Providers Care Custom Designer Name Role Phone Ousmane Gan MD Primary Care Provider Paco Reagan APRN, POLISHER SAND Unavailable Reason for Visit * Reason Onset Date Comments Appointment 02/21/2021 Encounter Details Date Type Department Care Team (Late st Contact Info) Description 02/21/2021 Telephone [facility] - Family [facility] [address] [place] [address] Ousmane Gan MD [address] [address] Appointment Social History Tobacco Use Types Packs/Day Years [...] CDT Legal Sex Female 2:47 AM TANK CAR MECHANIC Gender Identity Female 11/25/2022 4:06 PM [...] COVID-19? No / Unsure 02/21/2021 9:48 AM TANK CAR MECHANIC documented as of this encounter Miscellaneous Notes * Telephone Encounter - Ousmane Gan MD - 02/27/2021 11:31 PM TANK CAR MECHANIC Cheli, please help me with this message. Thanks! CAR MECHANIC * Telephone Encounter - Paige Maradiaga RN - 02/27/2021 7:44 AM CST Patient returning office call- states that office called her this morning. Patients hospital follow up with Paco Reagan APN was cancelled for today. Patient's appointment was at 0940. Nurse reviewed chart- no notes found. Patient asking for a follow up as soon as possible with providers and a call back to explain why appointment was cancelled. Patient also asking to transfer PCP to Dr. Merlos in office and if she is able to do this. Please call patient back this morning and help her schedule hospital follow up appointment-post surgery. Thank you! CAR MECHANIC * Telephone Encounter - Jacqui Rogers CMA - 02/22/2021 11:48 AM TANK CAR MECHANIC Patient has an appointment 02/27/2021 with Paco Reagan NP CAR MECHANIC * Telephone Encounter - Ousmane Gan MD - 02/21/2021 9:37 AM TANK CAR MECHANIC Schedule her to see me or Paco Reagan NP for hospital follow-up. Thanks! CAR MECHANIC documented in this encounter Plan of Treatment Upcoming Encounters Date Type Department Care Team (Late st Contact Info) Description 04/28/2024 10:00 AM TANK CAR MECHANIC Appointment [facility] Cardiology Stress [address] [facility] [place] [phone] Karen Andino APRN, POLISHER SAND [address] [place] [phone] Discharge Disposition: Discharged to home or Selfcare 06/02/2024 10:00 AM TANK CAR MECHANIC Office Visit [facility] - Family Medicine - [facility] [address] [place] [phone] Kelin Castle PAC [address] [place] [address] documented as of this encounter Visit Diagnoses Not on filedocumented in this encounter Care Teams Custom Designer Relationship Specialty Start Date End Date Ousmane Gan MD #[address] [address] PCP - General Family Medicine 10/24/20 04/08/21 Paco Reagan APRN, POLISHER SAND [address] [address] Nurse Practitioner Advanced Practice Nurse 10/24/20 documented as of this encounter
--- OUTSIDE RECORDS SUMMARY | 2024-04-17 13:53 | XMS_ITS | Encounter Summary ---
Author Organization [facility] Address [address] [place] [address] Phone Care Team Providers Care Mapping Technician Name Role Phone Ousmane Gan MD Primary Care Provider [phone] Paco Reagan APRN, CHILDREN'S LITERATURE PROFESSOR Unavailable Reason for Visit * Reason Comments Follow-up 2 month follow up Abscess Patient has an absce ss in in inner left thigh by her panty line. She states it has been there for about 5 days. Encounter Details Date Type Department Care Team (Late st Contact Info) Description 12/29/2020 10:30 AM CDT Office Visit [facility] - [facility] Medicine [facility] [address] [place] [address] Paco Reagan APRN, CHILDREN'S LITERATURE PROFESSOR [address] [address] Carpal tunnel syndrome of right wrist (Primary Dx); Neck sprain, subsequent encounter; Skin induration; Encounter for immunization Discharge Disposition: Discharged to home or Selfcare [...] PM CDT Legal Sex Female 2:47 AM REPOSSESSOR Gender Identity Female 11/25/2022 4:06 PM CDT [...] Sign Reading Time Taken Comments Blood Pressure 110/62 12/29/2020 10:41 AM CDT Pulse 85 12/29/2020 10:41 AM CDT Temperature 36.3 ??C (97.4 ??F) 12/29/2020 10:41 AM C DT Respiratory Rate 16 12/29/2020 10:41 AM CDT Oxygen Saturation 99% 12/29/2020 10:41 AM CDT Inhaled Oxygen Concentration - - Weight 99.3 kg (219 lb) 12/29/2020 10:41 AM CDT Height 152.4 cm (5') 12/29/2020 10:41 AM CDT Body Mass Index 42.77 12/29/2020 10:41 AM CDT documented in this encounter Patient Instructions * Patient Instructions* Zandra Marquez - 12/29/2020 10:30 AM CDT Images from the original note were not included. How to Quit Smoking Smoking is a hard habit to break. About 50% of all??people who have ever smoked have been able to quit. Most people??who still smoke want to quit. Here are some of the best ways to stop smoking. Keep in mind the health benefits of quitting The health benefits of quitting start right away. They keep improving the longer you go without smoking. Knowing this can help inspire you to stay on track. These benefits occur at any age. If you are 17 or 70, quitting is a good choice. Some of the health benefits after your last cigarette include: ?? After 20 minutes: Your blood pressure and pulse return to normal. ?? After 8 hours: Your oxygen levels return to normal. ?? After 2 days: Your ability to smell and taste start to improve as damaged nerves regrow. ?? After 2 to 3 weeks: Your circulation and lung function improve. ?? After 1 to 9 months: Your coughing, congestion, and shortness of breath decrease. Your tirednessdecreases. ?? After 1 year: Your risk of heart attack decreases by 50%. ?? After 5 years: Your risk of lung cancer decreases by 50%. Your risk of stroke becomes the same as a nonsmoker???s. Go cold turkey Most??former smokers quit cold turkey. This means stopping all at once. Trying to cut back slowly often doesn't work as well. This may be because it continues the habit of smoking. Also you may inhale more smoke while smoking fewer cigarettes. This leads to the same amount of nicotine in your body. Get support Support programs can be a big help, especially for heavy smokers. These groups offer lectures, waysto change behavior, and peer support. Here are some ways to find a support program: ?? Free national quitline 900-QWQV-SFR (014-233-9212) ?? Hospital quit-smoking programs ?? [place] [employer] 048-935-8765 ?? [place] [employer] 924-378-0273 Support at home is important too. Family and friends can offer praise and reassurance. If the smoker in your life finds it hard to quit, encourage them to keep trying. Try miyt-dnv-fhjycha medicine Nicotine replacement therapy??may make it??easier to quit. Some aids are available without a prescription. These include a nicotine patch, gum, and lozenges. But it's best to use these under the careof your healthcare provider. The skin patch gives a steady supply of nicotine. Nicotine gum and lozenges give??short-time doses of low levels of nicotine. Both methods reduce the craving for cigarettes. If you??have nausea, vomiting, dizziness, weakness, or a fast heartbeat, stop using these products. See your provider. Ask about prescription medicine After reviewing??your smoking patterns and past attempts to quit, your healthcare provider may offer a prescription medicine such as bupropion, varenicline, a nicotine inhaler, or nasal spray. Each has advantages and side effects. Your provider can review these with you. Keep trying Most smokers make many attempts at quitting before they succeed. It???s important not to give up. To learn more For more on how to quit smoking, try these resources:? www.cdc.gov/tobacco/quit_smoking/ 682-PXMV-KZZ (496-762-1940) ?? www.smokefree.gov 796-99L-ATBP (769-149-5871) ?? www.lung.org/stop-smoking/ 800-LUNGUSA (221-742-1132) [employer] last reviewed this educational content on 03/14/2019 ?? 2260-1083 [employer] All rights reserved. This information is not intended as a substitute for professional medical care. Always follow your healthcare professional's instructions. documented in this encounter Progress Notes * Zandra Marquez - 12/29/2020 10:30 AM CDT Esther Day was provided education materials regarding smoking cessation as noted on the AfterVisit Summary. Counseling Given and Ready to Quit Bill are updated in the Social History. * Zandra Marquez - 12/29/2020 10:30 AM CDT Esther Day, 30 y.o., female is here for Follow-up (2 month follow up ) and Abscess (Patient has an abscess in in inner left thigh by her panty line. She states it has been there for about 5 days.) Medication Refills: Patient reports/denies need for medication refills. Orders Pended: no Requested Prescriptions No prescriptions requested or ordered in this encounter Home Medications Medication Sig Start Date End Date Taking? Authorizing Provider Acetaminophen (TYLENOL PO) Take 650 mg by mouth every 4 hours as needed. Yes Provider, MD Sunita ergocalciferol (VITAMIN D) 35620 UNIT Capsule Take 1 Capsule by mouth once a week. 10/25/20 Yes Paco Reagan APN, CHILDREN'S LITERATURE PROFESSOR famotidine (PEPCID) 20 MG Tablet Take 1 Tablet by mouth 2 times daily. 10/24/20 Yes Paco Reagan APN, CNP glycopyrrolate (ROBINUL) 2 MG Tablet Take 2 Tablets by mouth 2 times daily as needed (excessive sweating). 10/24/20 Yes Paco Reagan APN, CNP ibuprofen (MOTRIN) 800 MG Tablet Take 1 Tablet by mouth every 8 hours as needed for Moderate or more severe pain. 10/24/20 Yes Paco Reagan APN, CNP loratadine (CLARITIN) 10 MG Tablet Take 10 mg by mouth. 11/22/18 Yes Provider, MD Sunita triamcinolone (KENALOG) 0.1 % Cream APPLY TOPICALLY TWICE DAILY 10/12/20 Yes Provider, MD Sunita venlafaxine (EFFEXOR-XR) 150 MG CAPSULE SR 24 HR Take 1 Capsule by mouth daily. 10/24/20 Yes Paco Reagan APN, CNP There are no discontinued medications. I [...] Health Maintenance Due Topic Date Due ??? Pneumococcal Immunization (0-64 years) (1 of 2 - PPSV23) Never done ??? SARS-COV-2 Immunization (1) Never done ??? Pap Smear Never done ??? Influenza Immunization (1) 12/13/2020 Orders Pended: yes The following BPA's have been addressed with the patient today: BMI, Flu, Pneumonia, Pap and Smoking * Carla Gutierrez RN - 12/29/2020 10:30 AM CDT Esther is here for immunizations per order of CS DENTAL TREATMENT COORDINATOR dated 12/29/20. Vaccine Information Sheet(s) were given on 12/29/20. Verbal consent was obtained. Esther tolerated the immunization well without incident. See Immunization activity for details. * Paco Reagan APN, SUZY - 12/29/2020 10:30 AM CDT Images from the original note were not included. Subjective: CC: F/U for neck strain and carpal tunnel; abscess Esther Day is a 30-year-old female who presents to the office today to follow-up for neck strain and right carpal tunnel syndrome. Since doing therapy she reports significant improvement in all symptoms. Patient reports abscess to the left inguinal area. She has recurrent issues with abscesses within the groin, bilateral axilla, and along the waistline. She is not occasional smoker. She has no other acute complaints. The history is provided by the patient. No supervisor modern languages was used. Follow-up Associated symptoms include arthralgias, myalgias and neck pain. Pertinent negatives include no abdominal pain, chest pain, chills, congestion, coughing, fatigue, fever, headaches, nausea, numbness, rash, sore throat or vomiting. Abscess Associated symptoms: no fatigue, no fever, no headaches, no nausea and no vomiting Review of Systems Constitutional: Negative for chills, fatigue and fever. HENT: Negative for congestion, ear discharge, ear pain, postnasal drip, sinus pressure, sinus pain,sore throat and trouble swallowing. Eyes: Negative for photophobia, pain and discharge. Respiratory: Negative for cough, chest tightness, shortness of breath and wheezing. Cardiovascular: Negative for chest pain and palpitations. Gastrointestinal: Negative for abdominal pain, constipation, diarrhea, nausea and vomiting. Genitourinary: Negative for dysuria, flank pain, frequency, hematuria and urgency. Musculoskeletal: Positive for arthralgias, myalgias and neck pain. Negative for back pain. Skin: Negative for rash and wound. Abscess Neurological: Negative for dizziness, seizures, syncope, numbness and headaches. Psychiatric/Behavioral: Negative for suicidal ideas. Allergies Allergies Allergen Reactions ??? Augmentin [Amoxicillin-Pot Clavulanate] Rash and Itching ??? Ceclor [Cefaclor] Hives and Rash ??? Codeine Hives and Itching Medications Current Outpatient Medications: ??? Acetaminophen (TYLENOL PO), Take 650 mg by mouth every 4 hours as needed., Disp: , Rfl: ??? ergocalciferol (VITAMIN D) 27826 UNIT Capsule, Take 1 Capsule by mouth once a week., Disp: 12 Capsule, Rfl: 0 ??? famotidine (PEPCID) 20 MG Tablet, Take 1 Tablet by mouth 2 times daily., Disp: 180 Tablet, Rfl:1 ??? glycopyrrolate (ROBINUL) 2 MG Tablet, Take 2 Tablets by mouth 2 times daily as needed (excessive sweating)., Disp: 360 Tablet, Rfl: 1 ??? ibuprofen (MOTRIN) 800 MG Tablet, Take 1 Tablet by mouth every 8 hours as needed for Moderate or more severe pain., Disp: 270 Tablet, Rfl: 1 ??? loratadine (CLARITIN) 10 MG Tablet, Take 10 mg by mouth., Disp: , Rfl: ??? triamcinolone (KENALOG) 0.1 % Cream, APPLY TOPICALLY TWICE DAILY, Disp: , Rfl: ??? venlafaxine (EFFEXOR-XR) 150 MG CAPSULE SR 24 HR, Take 1 Capsule by mouth daily., Disp: 90 Capsule, Rfl: 1 Past Medical History Past Medical History Positives Diagnosis Date ??? Abscess of face Multiple -face and leg ??? Acid reflux ??? Allergic rhinitis ??? Anxiety ??? Chronic back pain ??? GERD (gastroesophageal reflux disease) ??? Headache ??? History of seizure ??? IBS (irritable bowel syndrome) ??? Migraines Past Surgical History Past Surgical History: Procedure Laterality Date ??? CARPAL TUNNEL RELEASE Right 04/29/2018 Procedure: CARPAL TUNNEL RELEASE RIGHT; Surgeon: Trent Blanton MD; Location: [facility]; Service: Orthopaedic ??? EXPLORATORY OF ABDOMEN 2002 Endo fundal plication ??? LIPOMA RESECTION Left 07/04/2017 Procedure: EXCISION LIPOMA LEFT UPPER BACK; Surgeon: Gareth Em MD; Location: [facility]; Service: General ??? LIPOMA RESECTION Bilateral 02/18/2019 Procedure: EXCISION LIPOMAS LOWER BACK TIMES TWO; Surgeon: Escobar Goodman MD; Location: [facility]; Service: General ??? MYRINGOTOMY Bilateral ??? TONSILLECTOMY ??? WRIST GANGLION EXCISION Right 04/29/2018 Procedure: GANGLION CYST EXCISION REMOVAL RIGHT WRIST; Surgeon: Trent Blanton MD; Location: [facility]; Service: Orthopaedic Family History Family History Problem Relation Age of Onset ??? Cancer Maternal Grandmother ??? Liver Cancer Maternal Grandmother ??? Skin Cancer Maternal Grandmother ??? No Known Problems Maternal Grandfather ??? Anxiety disorder Mother ??? No Known Problems Daughter ??? No Known Problems Daughter ??? Seizures Maternal Uncle Epilepsy ??? Seizures Maternal Uncle Epilepsy Social History Social History Tobacco Use ??? Smoking status: Light Tobacco Smoker Years: 15.00 Types: Cigarettes ??? Smokeless tobacco: Never Used ??? Tobacco comment: 1-2 cigarettes a day Vaping Use ??? Vaping Use: Never used Substance Use Topics ??? Alcohol use: Yes Comment: Rare ??? Drug use: Yes Types: Marijuana Comment: sleep and anxiety and pain Objective: Physical Exam Vitals and nursing note reviewed. Constitutional: General: She is not in acute distress. Appearance: She is well-developed. She is morbidly obese. She is not diaphoretic. HENT: Head: Normocephalic and atraumatic. Right Ear: External ear normal. Left Ear: External ear normal. Nose: Nose normal. Eyes: General: Right eye: No discharge. Left eye: No discharge. Conjunctiva/sclera: Conjunctivae normal. Pupils: Pupils are equal, round, and reactive to light. Neck: Trachea: No tracheal deviation. Cardiovascular: Rate and Rhythm: Normal rate and regular rhythm. Heart sounds: Normal heart sounds. No murmur heard. No friction rub. No gallop. Pulmonary: Effort: Pulmonary effort is normal. No respiratory distress. Breath sounds: Normal breath sounds. Abdominal: General: Bowel sounds are normal. Palpations: Abdomen is soft. Tenderness: There is no abdominal tenderness. Musculoskeletal: General: No deformity. Normal range of motion. Cervical back: Normal range of motion and neck supple. Lymphadenopathy: Cervical: No cervical adenopathy. Skin: General: Skin is warm and dry. Coloration: Skin is not pale. Findings: No rash. 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 Psychiatric: Behavior: Behavior normal. Thought Content: Thought content normal. Judgment: Judgment normal. Vitals: 12/29/20 1041 BP: 110/62 BP Location: Right Arm BP Position: Sitting BP Cuff Size: Regular Pulse: 85 Resp: 16 Temp: 97.4 ??F (36.3 ??C) TempSrc: Temporal SpO2: 99% Weight: 219 lb (99.3 kg) Height: 5' (1.524 m) Assessment and Plan See Diagnoses, Orders, Follow-up, and Instructions 1. Carpal tunnel syndrome of right wrist 2. Neck sprain, subsequent encounter 3. Skin induration 4. Encounter for immunization - INFLUENZA VACCINE QUAD IM - INFLUENZA (>3) IMMUNIZATION QUESTIONS - PNEUMOCOCCAL VACCINE (PPSV23) - PNEUMOCOCCAL 23 IMMUNIZATION QUESTIONS Carpal tunnel syndrome/neck sprain. Improved. Continue therapy and p.r.n. medications. Skin induration. Consistent with resolving abscess. Advised patient to notify any changes. Advised tobacco cessation. Influenza pneumococcal vaccination today. Follow-up in office in 6 months with PCP. I discussed all new medications and potential side effects or risks associated with them. Patient is to contact our office with any concerns. Patient instructions and educational materials were given to the patient. Patient (or patient bilingual sales representative) demonstrates verbal understanding of instructions given. Patient should follow up with their PCP for general health maintenance needs. Patient should contact our office if their problems persist or call 911/go the to ER if issues become more persistent. If any referrals have been made, patient should contact our office with in 3-5 days if they have not heard anything from our referral team or the referring physician. Documentation for this visit on 12/29/20 was completed using a template. I have seen and examined the patient. Everything documented was personally performed at this visit with the necessary additions, deletions and changes made as appropriate. documented in this encounter Plan of Treatment Upcoming Encounters Date Type Department Care Team (Late st Contact Info) Description 04/28/2024 10:[address] [facility] Cardiology [address] [place] [address] Karen Andino APRN, CHILDREN'S LITERATURE PROFESSOR [address] [place] [phone] Discharge Disposition: Discharged to home or Selfcare 06/02/2024 10:00 AM REPOSSESSOR Office Visit [facility] - Family Medicine [facility] [address] [facility] [place] [address] Kelin Castle, SARABJIT [address] [place] [address] documented as of this encounter Visit Diagnoses Diagnosis Carpal tunnel syndrome of right wrist- Primary Carpal tunnel syndrome Neck sprain, subsequent encounter Skin induration Changes in skin texture Encounter for immunization Need for other specified prophylactic vaccination against single bacterial disease documented in this encounter Care Teams Mapping Technician Relationship Specialty Start Date End Date Ousmane Gan MD [address] [address] PCP - General Family Medicine 10/24/20 04/08/21 Paco Reagan APRN, CHILDREN'S LITERATURE PROFESSOR #[address] [address] Nurse Practitioner Advanced Practice Nurse 10/24/20 documented as of this encounter
--- OUTSIDE RECORDS SUMMARY | 2024-04-17 13:53 | XMS_ITS | Encounter Summary ---
Author Organization [facility] Address [address] [place] [address] Phone Care Team Providers Care Garden Consultant Name Role Phone Ousmane Gan MD Primary Care Provider [phone] aPco Reagan APRN, LONG HAUL TRUCK DRIVER Unavailable Reason for Visit * Reason Onset Date Comments Appointment 01/11/2021 Patient called a nd same day cancelled her appointment this date. She reports that she was up with a little one all night. Patient states that she will call to reschedule. PAS took the phone call. Encounter Details Date Type Department Care Team (Late st Contact Info) Description 01/11/[address] [facility] [address] [place] [id number] Desi Jiang, OT [place] Appointment (Patient called and same day cancelled her appointment this date. She reports that she was up with a little one all night. Patient states that she will call to reschedule. PAS took the phone call. ) Social History Tobacco Use Types Packs/Day Years [...] PM CDT Legal Sex Female 2:47 AM BILLET GRINDER Gender Identity Female 11/25/2022 4:06 PM CDT [...] st Contact Info) Description 04/28/2024 10:00 AM BILLET GRINDER Appointment [facility] Cardiology [address] [place] [address] Karen Andino APRN, LONG HAUL TRUCK DRIVER [address] [place] [address] Discharge Disposition: Discharged to home or Selfcare 06/02/2024 10:00 AM BILLET GRINDER Office Visit [facility] - Family Medicine [facility] [address] [place] [address] Kelin Castle PAC [address] [place] [address] documented as of this encounter Visit Diagnoses Not on filedocumented in this encounter Care Teams Garden Consultant Relationship Specialty Start Date End Date Ousmane Gan MD [address] [address] PCP - General Family Medicine 10/24/20 04/08/21 Paco Reagan, RYAN, LONG HAUL TRUCK DRIVER [address] [address] Nurse Practitioner Advanced Practice Nurse 10/24/20 documented as of this encounter
--- OUTSIDE RECORDS SUMMARY | 2024-04-17 13:53 | XMS_ITS | Encounter Summary ---
Author Organization [facility] Address [address] [place] [address] Phone Care Team Providers Care Environmental Safety Specialist Name Role Phone Ousmane Gan MD Primary Care Provider [phone] Paco Reagan APRN, COMPONENT INSPECTOR Unavailable Reason for Visit * Reason Comments Abdominal Pain * Auth/Cert Specialty Diagnoses / Procedures Referred By Ariana knight Referred To Contact Diagnoses Acute appendicitis Umbilical hernia without obstruction and without gangrene Referral ID Status Reason Start Date Expiration Date Visits Re quested Visits Authorized [id number] 1 1 Encounter Details Date Type Department Care Team (Late st Contact Info) Description 02/21/2021 12:40 PM AMBULANCE OPERATIONS SUPERVISOR - 02/21/2021 3:10 PM AMBULANCE OPERATIONS SUPERVISOR [facility] [address] [place] [phone] Rm Butler MD [address] [phone] LAPAROSCOPIC APPENDECTOMY Surgery Details Date/Time Status Location OR Service Patient Class Case Cl ass Case Type Trauma Case? 02/21/2021 12:40 PM Posted [facility] MAIN OR 02 General Inpatient Urgent Panel 1 Procedure LRB Anes Op Region Wound Class Comments LAPAROSCOPIC APPENDECTOMY N/A General Abdomen Rebekah n Contaminated LAPAROSCOPIC UMBILICAL HERNI A REPAIR- NO MESH N/A General Abdomen Clean Contaminated Surgeon Surgeon Role Service Panel Rm Butler MD Primary General 1 documented in this encounter Social History Tobacco [...] PM CDT Legal Sex Female 2:47 AM AMBULANCE OPERATIONS SUPERVISOR Gender Identity Female 11/25/2022 4:06 PM CDT Sexual Orientation Not on file Occupation Industry Job Start Date Job End Date [employer] Not on file Not on file Not on file COVID-19 Exposure Response Date Recorded In the last month, have you been in contact with someone who was confirmed or suspected to have Coronavirus / COVID-19? No / Unsure 02/21/2021 9:48 AM AMBULANCE OPERATIONS SUPERVISOR documented as of this encounter Last Filed Vital Signs Vital Sign Reading Time Taken Comments Blood Pressure 112/85 02/21/2021 3:00 PM AMBULANCE OPERATIONS SUPERVISOR Pulse 83 02/21/2021 3:00 PM AMBULANCE OPERATIONS SUPERVISOR Temperature 36.2 ??C (97.2 ??F) 02/21/2021 3:00 PM CS T Respiratory Rate 22 02/21/2021 3:00 PM AMBULANCE OPERATIONS SUPERVISOR Oxygen Saturation 95% 02/21/2021 3:00 PM AMBULANCE OPERATIONS SUPERVISOR Inhaled Oxygen Concentration - - Weight 100.2 kg (220 lb 14.4 oz) 2020 12:26 AM AMBULANCE OPERATIONS SUPERVISOR Height 152.4 cm (5') 02/21/2021 12:26 AM AMBULANCE OPERATIONS SUPERVISOR Body Mass Index 43.14 02/21/2021 12:26 AM AMBULANCE OPERATIONS SUPERVISOR documented in this encounter Discharge Summaries * Sarah Hoffman MD - 02/22/2021 10:08 AM CST [facility] DISCHARGE SUMMARY Name: Esther Day Age: 30 [...] for: HGBA1C Lab Results Component Value Date [id number] 336 10/25/2020 No results found for: CPK, CPKI, CKMB, CKMBNI, CKMBPOCT, CKMBRELINDX, TROPONINI, POCTRP No results found for: FERRITIN No components found for: FOLATE No results found for: PHARTERIAL, PO2ART, BUK5OKT, CO2ART, O2ART No results found for: LACACIDPOCT, [...] 3 days. CONTINUE taking these medications ergocalciferol 48208 UNIT Caps Commonly known as: VITAMIN D [...] Thank you very much for allowing the [facility] Adult Hospitalist Service to participate in the care of this patient. If you have any questions, please don't hesitate to call. Signed: Sarah Hoffman MD, 02/22/2021, 10:08 AM AMBULANCE OPERATIONS SUPERVISOR LANCE OPERATIONS SUPERVISOR documented in this encounter Discharge Instructions * Appointments* Sarah Hoffman MD - 02/22/2021 7:39 AM AMBULANCE OPERATIONS SUPERVISOR Postoperative management recommendations: Keep surgical site clean [...] Levaquin 750 mg PO Daily *3 days LANCE OPERATIONS SUPERVISOR LANCE OPERATIONS SUPERVISOR documented in this encounter Medications at Time of Discharge Acetaminophen (TYLENOL PO) Take 650 mg by mouth every 4 hours as needed. 2 ergocalciferol (VITAMIN D) 40390 UNIT CapsuleIndications: Vitamin D deficiency Take 1 [...] Type Start Date End Date Comment Verified Woodenware Assembler Amoxicillin-Pot Clavulanate Allergy 11-Mar-2016 Severity: High Reactions: [...] oz (100.2 kg), last menstrual period 01/22/2021, AhX151 %, unknown if currently . General appearance: [...] By: Rm Butler MD; 02/22/2021, 10:03 AM AMBULANCE OPERATIONS SUPERVISOR Attending Physician: Sarah Hoffman MD Primary Care Physician: Ousmane Gan MD LANCE OPERATIONS SUPERVISOR * Sarah Hoffman MD - 02/21/2021 6:11 PM CST [facility] INPATIENT DAILY PROGRESS NOTE Esther Day is [...] Tympanic Pulse: 83 84 92 93 Resp: 22 20 20 20 BP: 112/85 140/83 145/87 [...] Results: No results found for: PHARTERIAL, PO2ART, HLE5YQY, CO2ART, O2ART Lab Results Component Value Date [...] LACACIDPOCT, LACTICA Lab Results Component Value Date [id number] 336 10/25/2020 No results found for: FERRITIN [...] By: Sarah Hoffman MD, 02/21/2021 6:11 PM AMBULANCE OPERATIONS SUPERVISOR LANCE OPERATIONS SUPERVISOR documented in this encounter H&P Notes * Edilma Longo APRN, COMPONENT INSPECTOR - 02/20/2021 11:08 PM CST Images from the original note were not included. HOSPITALIST ADMISSION HISTORY & PHYSICAL EXAM PATIENT NAME: Esther Day, : 1990, MR#[id number] CHIEF COMPLAINT Abd pain HPI Esther Day [...] 4 hours as needed. ergocalciferol (VITAMIN D) 00444 UNIT Capsule Not Taking at Unknown time [...] Type Start Date End Date Comment Verified Woodenware Assembler Amoxicillin-Pot Clavulanate Allergy 11-Mar-2016 Severity: High Reactions: [...] time spent: 45 minutes Edilma Longo APRN, CNP 02/21/2021 3:39 AM AMBULANCE OPERATIONS SUPERVISOR Primary Care Physician: Ousmane Gan MD Cosigned by Sarah Hoffman MD at 02/21/2021 10:02 PM AMBULANCE OPERATIONS SUPERVISOR LANCE OPERATIONS SUPERVISOR LANCE OPERATIONS SUPERVISOR LANCE OPERATIONS SUPERVISOR LANCE OPERATIONS SUPERVISOR LANCE OPERATIONS SUPERVISOR Associated attestation - Sarah Hoffman MD - 02/21/2021 10:02 PM AMBULANCE OPERATIONS SUPERVISOR Patient has been seen separately from nurse [...] GERD, status post open fundoplication done at [facility] when she was a child. She presented [...] Type Start Date End Date Comment Verified Woodenware Assembler Amoxicillin-Pot Clavulanate Allergy 11-Mar-2016 Severity: High Reactions: [...] 4 hours as needed. ergocalciferol (VITAMIN D) 51676 UNIT Capsule Not Taking at Unknown time [...] By: Rm Butler MD, 02/21/2021, 10:13 AM AMBULANCE OPERATIONS SUPERVISOR Attending Provider: Sarah Hoffman MD Primary Care Physician: Ousmane Gan MD LANCE OPERATIONS SUPERVISOR documented in this encounter Nursing Notes * Laurence Presley RN - 02/21/2021 1:52 PM CST WHO [...] FROZEN SECTION ROOM by LAURENCE PRESLEY RN. LANCE OPERATIONS SUPERVISOR documented in this encounter OR Notes * [...] By: Rm Butler MD; 02/21/2021, 2:28 PM AMBULANCE OPERATIONS SUPERVISOR LANCE OPERATIONS SUPERVISOR documented in this encounter ED Notes * Muna Llamas RN - 02/21/2021 12:07 AM CST Patient transported to floor via wheelchair with all belongings at bedside. Patients VSS at this time LANCE OPERATIONS SUPERVISOR * Muna Llamas RN - 02/20/2021 11:15 PM CST Pt medicated per provider orders. Pt educated on intended effects and side effects of medication and verbalized understanding, able to provide teach back of education. LES * Muna Llamas RN - 02/20/2021 11:00 [...] hourly rounding. Report received from GRETA Sterling LANCE OPERATIONS SUPERVISOR * Noe Crews PAC - 02/20/2021 7:54 [...] % sodium chloride solution Intravenous Once Noe Crews PAC ??? [START ON 02/21/2021] levoFLOXacin (LEVAQUIN) tablet 750 mg 750 mg Oral Daily Noe Crews PAC ??? metroNIDAZOLE (FLAGYL) tablet 500 mg 500 mg Oral Once Noe Crews PAC Current Outpatient Medications Medication Sig Dispense Refill ??? Acetaminophen (TYLENOL PO) Take 650 mg by mouth every 4 hours as needed. ??? ergocalciferol (VITAMIN D) 88887 UNIT Capsule Take 1 Capsule by mouth [...] RELEASE RIGHT; Surgeon: Trent Blanton MD; Location: [facility] MAIN; Service: Orthopaedic ??? EXPLORATORY OF ABDOMEN 2002 Endo fundal plication ??? LIPOMA RESECTION Left 07/04/2017 Procedure: EXCISION LIPOMA LEFT UPPER BACK; Surgeon: Gareth Em MD; Location: [facility]; Service: General ??? LIPOMA RESECTION Bilateral 02/18/2019 Procedure: EXCISION LIPOMAS LOWER BACK TIMES TWO; Surgeon: Escobar Goodman MD; Location: [facility]; Service: General ??? MYRINGOTOMY Bilateral ??? TONSILLECTOMY ??? WRIST GANGLION EXCISION Right 04/29/2018 Procedure: GANGLION CYST EXCISION REMOVAL RIGHT WRIST; Surgeon: Tretn Blanton MD; Location: [facility]; Service: Orthopaedic Social History Socioeconomic History ??? [...] Ht 5' (1.524 m) Wt 220 lb (99.8 kg) LMP 01/22/2021 SpO2 99% BMI 42.97 [...] Margarita Gann M.D. JS: [id number] Report ID: [id number] Reading Location: [place] [address] Labs Reviewed CMP (COMPREHENSIVE METABOLIC PANEL) - [...] Abnormality Status --------- ------ CBC with Auto Differential[[id number]] Abnormal Final result Please view results for [...] patient tomorrow. Discussed with Edilma Longo, hospitalist STAFF NURSE ANESTHETIST accepting patient to Dr. Triana's service as [...] Farzad Saleh MD at 02/20/2021 10:41 PM AMBULANCE OPERATIONS SUPERVISOR LANCE OPERATIONS SUPERVISOR LANCE OPERATIONS SUPERVISOR LANCE OPERATIONS SUPERVISOR Associated attestation - Farzad Saleh MD - 02/20/2021 10:41 PM AMBULANCE OPERATIONS SUPERVISOR I saw and examined the patient with the WILDLIFE CONSERVATIONIST/PA on 02/19/2021. I personally performed the exam and medical decision making. I agree with the WILDLIFE CONSERVATIONIST/PA???s chief complaint, history, exam, and medical decision [...] A&O x 4 in triage with VSS LANCE OPERATIONS SUPERVISOR documented in this encounter Miscellaneous Notes * Interdisciplinary - Kj Lynn RN - 02/22/2021 11:50 AM CST Pt. Had discharge instructions and discharge teaching completed by Valentina HERNANDES. Pt. Was taken out by wheel chair to family vehicle to go home with no needs. LANCE OPERATIONS SUPERVISOR * Plan of Care - Kj Lynn [...] Nausea and Vomiting Relief Outcome: Outcome Achieved LANCE OPERATIONS SUPERVISOR * Interdisciplinary - Valentina Benítez RN - [...] signs of distress noted at this time. LANCE OPERATIONS SUPERVISOR * Interdisciplinary - Kj Lynn RN - 02/22/2021 7:44 AM CST Pt. Resting in bed with call light in reach. Pt. Has IV fluids infusing. Pt. Is receiving around the clock pain medication per JUN. Full assessment complete see flow sheet. LANCE OPERATIONS SUPERVISOR * Interdisciplinary - Joyce Troncoso RN - 02/22/2021 5:43 AM CST Pt resting in bed with call light in reach. Pt is on room air, resp even and unlabored. No s/s or c/o SOB. IVF infusing per MAR. Pt reports that pain is being effectively controlled by IV Toradol at this time. Pt tolerating clear liquid diet and eager to advance diet today. Pt rounding continues. Pt handoff to be given to GRETA Underwood. LANCE OPERATIONS SUPERVISOR * Plan of Care - Joyce Troncoso [...] Yes, case management already following Taken 02/21/2021 1901 Today's Goal: Pt will report pain less than 3/10 Goal: Absence of Hospital-Acquired Illness or Injury Outcome: Ongoing (see interventions/notes) Intervention: Prevent and Manage VTE (Venous Thromboembolism) Risk Flowsheets (Taken 02/22/2021 0400) VTE Prevention/Management: sequential compression devices off patient refused intervention ambulation encouraged bleeding risk factor(s) identified Goal: Optimal Comfort and Wellbeing Outcome: Ongoing (see interventions/notes) Intervention: Provide Person-Centered Care Flowsheets (Taken 02/21/2021 190) Trust Relationship/Rapport: care explained therapeutic presence provided [...] Postoperative Nausea and Vomiting Flowsheets (Taken 02/21/2021 190) Nausea/Vomiting Interventions: antiemetic given stimuli minimized LANCE OPERATIONS SUPERVISOR * Interdisciplinary - Joyce Troncoso RN - 02/22/2021 3:34 AM CST Pt asked for PRN dose of Toradol and received it at 0141. Pt now is refusing 0300 scheduled dose ofToradol due to pain being controlled by the last-given PRN dose. LANCE OPERATIONS SUPERVISOR * Interdisciplinary - Joyce Troncoso RN - 02/21/2021 7:05 PM CST Pt resting in bed complaining of abdominal pain and nausea. Medications to be administered per MAR.Resp even and unlabored. No acute s/s distress noted. IVF infusing per MAR. Call light within reach. Pt is compliant with call light use for assistance. See flow sheet for complete assessment. Pt rounding continues LANCE OPERATIONS SUPERVISOR * Interdisciplinary - Kj Lynn RN - 02/21/2021 5:32 PM CST Pt. Resting in bed with call light in reach. Pt. Has not had call outs of pain or nausea. Pt. Post op vital signs have been completed. Pt. Had a laparoscopic appendectomy and laparoscopic umbilical hernia repair. Pt. Has IV fluids infusing. Pt. Is able to possibly discharge tomorrow. LANCE OPERATIONS SUPERVISOR * Plan of Care - Kj Lynn RN - 02/21/2021 4:29 PM CST Problem: Adult Inpatient Plan of Care Goal: Plan of Care Review Outcome: Ongoing (see interventions/notes) Flowsheets Taken 02/21/2021 0467 Progress: improving Plan of Care Reviewed With: [...] Pain Flowsheets Taken 02/21/2021 1627 by Kj Lynn, bag machine set up operator Interventions: [id number]-[id number]-swciy dosing utilized care clustered cold applied Taken 02/21/2021 0043 by Kj Ware RN Diversional Activities: television smartphone Problem: Postoperative Nausea and Vomiting (Appendectomy) Goal: Nausea and Vomiting Relief Outcome: Ongoing (see interventions/notes) Intervention: Prevent or Manage Postoperative Nausea and Vomiting Flowsheets (Taken 02/21/2021 1627) Nausea/Vomiting Interventions: antiemetic given LANCE OPERATIONS SUPERVISOR * Interdisciplinary - Kj Lynn RN - 02/21/2021 3:10 PM CST Kandace HERNANDES in PACU called and gave report. Pt. To come to floor shortly. LANCE OPERATIONS SUPERVISOR * Plan of Care - Kandace Fine RN - 02/21/2021 2:43 PM CST Pt will be discharged from PACU when criteria met LANCE OPERATIONS SUPERVISOR * Plan of Care - Rm Butler [...] By: Rm Butler MD; 02/21/2021, 2:32 PM AMBULANCE OPERATIONS SUPERVISOR LANCE OPERATIONS SUPERVISOR * Interdisciplinary - Kj Lynn RN - 02/21/2021 7:35 AM CST Pt. Resting in bed with call light in reach. Pt. Had complaints of nausea and abdominal and head pain. Prn pain medication and antemetic given. Pt. IV infiltrated new IV was started. Full assessment complete see flow sheet. LANCE OPERATIONS SUPERVISOR documented in this encounter Plan of Treatment Upcoming Encounters Date Type Department Care Team (Late st Contact Info) Description 04/28/2024 10:00 AM AMBULANCE OPERATIONS SUPERVISOR [facility]ointment [facility] [address] [place] [phone] Karen Andino APRN, COMPONENT INSPECTOR [address] [place] [phone] Discharge Disposition: Discharged to home or Selfcare 06/02/2024 10:00 AM AMBULANCE OPERATIONS SUPERVISOR Office Visit [facility] - Family Medicine [facility] [address] [place] [address] Kelin Castle, PAC [address] [place] [address] Scheduled Orders Name Type Priority Associated Diagnoses Orde r Schedule Pulse Oximetry, Spot PFT Routine WITH VITALS until discontinued starting 02/20/2021 documented as of this encounter Procedures Procedure Name Priority Date/Time Associated Diagnosis Comments CBC WITH AUTO DIFFERENTIAL Routine 02/22/2021 7:13 AM AMBULANCE OPERATIONS SUPERVISOR COMPLETE BLOOD COUNT (CBC) WITH DIFF Routine 02/22/2021 7:13 AM AMBULANCE OPERATIONS SUPERVISOR BASIC METABOLIC PANEL W/ CALCIUM TOTAL Routine 02/22/2021 7:13 AM AMBULANCE OPERATIONS SUPERVISOR PATHOLOGY SURGICAL Routine 02/21/2021 1: 08 PM AMBULANCE OPERATIONS SUPERVISOR LAPAROSCOPIC UMBILICAL HERNIA REPAIR 02/21/2021 12:53 PM AMBULANCE OPERATIONS SUPERVISOR APPENDICITIS, UMBILICAL HERNIA LAPAROSCOPIC APPENDECTOMY 02/21/2021 12:53 PM AMBULANCE OPERATIONS SUPERVISOR APPENDICITIS, UMBILICAL HERNIA CMP (COMPREHENSIVE METABOLIC PANEL) STAT 02/21/2021 6:32 AM AMBULANCE OPERATIONS SUPERVISOR CBC WITH AUTO DIFFERENTIAL STAT 02/21/2021 6:23 AM AMBULANCE OPERATIONS SUPERVISOR COMPLETE BLOOD COUNT (CBC) WITH DIFF STAT 02/21/2021 6:23 AM AMBULANCE OPERATIONS SUPERVISOR SARS-COV-2 BY MOLECULAR STAT 02/20/2021 10:[address]ANCE [address]PERATIONS SUPERVIS[address] ABDOMEN PELVIS W/ CONTRAST STAT 02/20/2021 9:28 PM AMBULANCE OPERATIONS SUPERVISOR URINALYSIS REFLEX IF INDICATED BY ABNORMAL RESULTS STAT 02/20/2021 8:36 PM AMBULANCE OPERATIONS SUPERVISOR CULTURE, URINE STAT 02/20/2021 8:36 PM AMBULANCE OPERATIONS SUPERVISOR CBC WITH AUTO DIFFERENTIAL STAT 02/20/2021 8:30 PM AMBULANCE OPERATIONS SUPERVISOR LIPASE STAT 02/20/2021 8:30 PM AMBULANCE OPERATIONS SUPERVISOR CMP (COMPREHENSIVE METABOLIC PANEL) STAT 02/20/2021 8:30 PM AMBULANCE OPERATIONS SUPERVISOR COMPLETE BLOOD COUNT (CBC) WITH DIFF STAT 02/20/2021 8:30 PM AMBULANCE OPERATIONS SUPERVISOR POCT URINE HCG () STAT 02/20/2021 8:17 PM AMBULANCE OPERATIONS SUPERVISOR documented in this encounter Results * (ABNORMAL) CBC with Auto Differential (02/22/2021 7:13 AM AMBULANCE OPERATIONS SUPERVISOR) Only the most recent of3 resultswithin the time period is included. WBC 10.46 4.00 - 12.00 10(3)/mcL 02/22/2021 7:54 AM AMBULANCE OPERATIONS SUPERVISOR [facility] RBC 4.02 3.80 - 5.30 10(6)/mcL 02/22/2021 7:54 AM AMBULANCE OPERATIONS SUPERVISOR [facility] HEMOGLOBIN (HGB) 10.9(L) 12.0 - 15.8 g/dL 02/22/2021 7:54 AM [facility] HEMATOCRIT (HCT) 34.9(L) 36.0 - 47.0 % 02/22/2021 7:54 AM [facility] MCV 86.8 82.0 - 96.0 fL 02/22/2021 7:54 AM [facility] MCH 27.1 26.0 - 34.0 pg 02/22/2021 7:54 AM [facility] MCHC 31.2 31.0 - 36.0 g/dL 02/22/2021 7:54 AM [facility] PLATELET COUNT 353 140 - 440 10(3)/[facility] [place] 02/22/2021 7:54 AM [facility] RDW 13.0 11.8 - 15.5 % 02/22/2021 7:54 AM [facility] MPV 9.7 9.7 - 12.4 fL 02/22/2021 7:54 AM [facility] NEUTROPHILS 82.7(H) 47.0 - 73.0 % 02/22/2021 7:54 AM [facility] LYMPHOCYTES 12.3(L) 18.0 - 42.0 % 02/22/2021 7:54 AM [facility] MONOCYTES 4.6 4.0 - 12.0 % 02/22/2021 7:54 AM [facility] EOSINOPHILS 0.1 0.0 - 5.0 % 02/22/2021 7:54 AM [facility] BASOPHILS 0.3 0.0 - 1.0 % 02/22/2021 7:54 AM [facility] ABSOLUTE NEUTROPHILS 8.65(H) 1.60 - 7.70 10(3)/mcL 02/22/2021 7:54 AM [facility] ABSOLUTE LYMPHOCYTES 1.29(L) 1.30 - 3.20 10(3)/mcL 02/22/2021 7:54 AM [facility] ABSOLUTE MONOCYTES 0.48 0.20 - 1.00 10(3)/[facility] 02/22/2021 7:54 AM AMBULANCE OPERATIONS SUPERVISOR [facility] ABSOLUTE EOSINOPHIL 0.01 0.00 - 0.40 10(3)/mcL 02/22/2021 7:54 AM AMBULANCE OPERATIONS SUPERVISOR [facility] ABSOLUTE BASOPHILS 0.03 0.00 - 0.10 10(3)/mcL 02/22/2021 7:54 AM AMBULANCE OPERATIONS SUPERVISOR [facility] NRBC PER 100 WBC 0 02/23/20 7:54 AM AMBULANCE OPERATIONS SUPERVISOR [facility] Blood BLOOD SPECIMEN / Unknown Venipuncture / Unknown 02/22/2021 7:13 AM AMBULANCE OPERATIONS SUPERVISOR 02/22/2021 7:49 AM AMBULANCE OPERATIONS SUPERVISOR us Sarah Colmenares MD HEMATOLOGY ORDERABLES Final R esult [facility] [address] [place] [address] * (ABNORMAL) BMP AM (02/22/2021 7:13 AM AMBULANCE OPERATIONS SUPERVISOR) SODIUM 140 136 - 144 mmol/L 02/22/2021 8:10 AM [facility] POTASSIUM 4.0 3.5 - 5.1 mmol/L 02/22/2021 8:10 AM [facility] CHLORIDE 105 100 - 110 mmol/L 02/22/2021 8:10 AM [facility] CO2, VENOUS 23 22 - 32 mmol/L 02/22/2021 8:10 AM [facility] ANION GAP 16.0 8.0 - 20.0 mmol/L 02/22/2021 8:10 AM [facility] GLUCOSE 94 70 - 99 mg/dL 02/22/2021 8:10 AM [facility] BUN 8 6 - 20 mg/dL 02/22/2021 8:10 AM [facility] CREATININE, BLOOD 0.50(L) 0.60 - 1.10 mg/dL 02/22/2021 8:10 AM AMBULANCE OPERATIONS SUPERVISOR [facility] BUN/CREATININE RATIO 16 12 - 20 ratio 02/22/2021 8:10 AM AMBULANCE OPERATIONS SUPERVISOR [facility] CALCIUM 9.0 8.9 - 10.3 mg/dL 02/22/2021 8:10 AM AMBULANCE OPERATIONS SUPERVISOR [facility] GFR, EST. NONAFRICAN >60 >=60 02/22/2021 8:10 AM AMBULANCE OPERATIONS SUPERVISOR [facility] GFR, EST. >60 >=60 02/22/2021 8:10 AM AMBULANCE OPERATIONS SUPERVISOR [facility] Comment: Creatinine Clearance is the preferred criteria for selecting drug dose adjustments in renally impaired patients. ??The GFR is provided as additional pertinent clinical information. GFR is reported in mL/min/1.73 sq m. Blood BLOOD SPECIMEN / Unknown Venipuncture / Unknown 02/22/2021 7:13 AM AMBULANCE OPERATIONS SUPERVISOR 02/22/2021 7:49 AM AMBULANCE OPERATIONS SUPERVISOR Sarah Colmenares MD CHEMISTRY ORDERABLES Final Re sult [facility] [address] [place] [address] * Pathology Surgical (02/21/2021 1:08 PM AMBULANCE OPERATIONS SUPERVISOR) Case Report Surgical Pathology Report ? Case: [id number] ? Authorizing Provider: ??Rm Butler, ??Collected: ? 02/21/2021 01:08 PM ? MD ? Ordering Location: ? [facility] ? Received: ?02/22/2021 10:45 AM ? [facility] ? Main OR ? Pathologist: ? Bea, Nereida Tatiana, ? MD ? Specimen: ?Appendix, APPENDIX ? 03/01/2021 4:08 PM AMBULANCE OPERATIONS SUPERVISOR [facility] FINAL DIAGNOSIS Vermiform Appendix, Appendectomy: - Hydroappendix. - Findings compatible with early acute appendicitis, see Description. 03/01/2021 4:08 PM [facility] Pre-Operative Diagnosis APPENDICITIS, UMBILICAL HERNIA 03/01/2021 4:08 PM [facility] Gross Description A. APPENDIX The [...] submitted as A1-A3. KS/sb 03/01/2021 4:08 PM [facility] Microscopic Description 3 H&E. Sections disclose a markedly dilated vermiform appendix and attenuated appendiceal wall with flattened mucosa and a sparse transmural eosinophilic infiltrate. No significant acute inflammation or epithelial atypia is identified. SES/sb 03/01/2021 4:08 PM [facility] Tissue APPENDIX STRUCTURE / Unknown 02/21/2021 1:08 PM AMBULANCE OPERATIONS SUPERVISOR 02/22/2021 10:45 AM AMBULANCE OPERATIONS SUPERVISOR us Rm Butler MD PATHOLOGY/CYTOLOGY OR DERABLES Final Result [facility] [address] [place] [address] * (ABNORMAL) Comprehensive Metabolic Panel (CMP) (02/21/2021 6:32 AM AMBULANCE OPERATIONS SUPERVISOR) Only the most recent of2 resultswithin the time period is included. SODIUM 140 136 - 144 mmol/L 02/21/2021 7:18 AM [facility] POTASSIUM 4.0 3.5 - 5.1 mmol/L 02/21/2021 7:18 AM [facility] CHLORIDE 107 100 - 110 mmol/L 02/21/2021 7:18 AM [facility] CO2, VENOUS 25 22 - 32 mmol/L 02/21/2021 7:18 AM [facility] ANION GAP 12.0 8.0 - 20.0 mmol/L 02/21/2021 7:18 AM [facility] GLUCOSE 90 70 - 99 mg/dL 02/21/2021 7:18 AM [facility] BUN 9 6 - 20 mg/dL 02/21/2021 7:18 AM [facility] CREATININE, BLOOD 0.58(L) 0.60 - 1.10 mg/dL 02/21/2021 7:18 AM [facility] BUN/CREATININE RATIO 16 12 - 20 ratio 02/21/2021 7:18 AM [facility] TOTAL PROTEIN 6.2 6.0 - 8.3 g/dL 02/21/2021 7:18 AM [facility] ALBUMIN 3.9 3.5 - 5.2 g/dL 02/21/2021 7:18 AM [facility] Comment: The colormetric methods used for the determination of Albumin may lead to falsely elevated test results in patients suffering from renal failure or insufficiency due to interference with other proteins. A/G RATIO 1.7 1.0 - 2.0 02/21/2021 7:18 AM [facility] CALCIUM 8.4(L) 8.9 - 10.3 mg/dL 02/21/2021 7:18 AM [facility] LAB T BILI 0.4 <=1.2 mg/dL 02/21/2021 7:18 AM [facility] LAB SGOT (AST) 23 <=32 U/L 02/21/2021 7:18 AM [facility] LAB SGPT (ALT) 21 <=41 U/L 02/21/2021 7:18 AM AMBULANCE OPERATIONS SUPERVISOR [facility] ALKALINE PHOSPHATASE 75 35 - 105 U/L 02/21/2021 7:18 AM AMBULANCE OPERATIONS SUPERVISOR [facility] GFR, EST. NONAFRICAN >60 >=60 02/21/2021 7:18 AM AMBULANCE OPERATIONS SUPERVISOR [facility] GFR, EST. >60 >=60 021 7:18 AM AMBULANCE OPERATIONS SUPERVISOR [facility] Comment: Creatinine Clearance is the preferred criteria for selecting drug dose adjustments in renally impaired patients. ??The GFR is provided as additional pertinent clinical information. GFR is reported in mL/min/1.73 sq m. Blood Venipuncture / Unknown 02/21/2021 6:32 AM AMBULANCE OPERATIONS SUPERVISOR 02/21/2021 6:52 AM AMBULANCE OPERATIONS SUPERVISOR Edilma Longo BICYCLE RENTAL CLERK, COMPONENT INSPECTOR CHEMISTRY ORDERABLES Final Result [facility] [address] [place] [address] * SARS-COV-2 BY MOLECULAR (02/20/2021 10:55 PM AMBULANCE OPERATIONS SUPERVISOR) SARSCOV2 NOT DETECTED (Referenc e Range for this test is Not Detected) [facility] ID NOW 02/20/2021 11:21 PM AMBULANCE OPERATIONS SUPERVISOR [facility] Comment:This test was perfor med by a MOLECULAR, NON-PCR method Other NASAL STRUCTURE / Unknown Non-Phlebotomy Collection / Unknown 02/20/2021 10:55 PM AMBULANCE OPERATIONS SUPERVISOR 02/20/2021 11:03 PM AMBULANCE OPERATIONS SUPERVISOR Narrative [facility] - 02/20/2021 11:21 PM AMBULANCE OPERATIONS SUPERVISOR This test has been authorized by the [...] information for Clinicians can be found at: https://www.fda.gov/media/449355/download Additional information for Patients can be found at: https://www.fda.gov/media/814293/download Noe Crews PAC MICROBIOLOGY - GENER AL ORDERABLES Final Result [facility] [address] [facility] [place] [address] * CT ABDOMEN PELVIS W/ CONTRAST (02/20/2021 9:28 PM AMBULANCE OPERATIONS SUPERVISOR) Anatomical Region Laterality Modality Abdomen N/A Computed Tomogra phy 02/20/2021 9:58 PM AMBULANCE OPERATIONS SUPERVISOR Impressions 02/20/2021 10:01 PM AMBULANCE OPERATIONS SUPERVISOR IMPRESSION: ?? Umbilical hernia containing fat, vasculature, [...] Prominent liver size. Narrative 02/20/2021 10:01 PM AMBULANCE OPERATIONS SUPERVISOR EXAM DESCRIPTION: ?? CT ABDOMEN PELVIS W/ [...] PM T: ??02/20/2021 9:58 PM Report ID: [id number] Reading Location: ??[id number] Procedure Note Margarita Gann MD - 02/20/2021 [...] Margarita Gann M.D. JS: [id number] Report ID: [id number] Reading Location: [id number] IMPRESSION: Umbilical hernia containing fat, vasculature, fluid [...] lower lungs. Prominent liver size. Noe Crews [facility] IMG CT ORDERABLES Fi nal Result * Culture, Urine (02/20/2021 8:36 PM AMBULANCE OPERATIONS SUPERVISOR) CULTURE RESULTS 30,000 CFU/ML Staphylococcus Coagulase Negative not Staphylococcus saprophyticus 02/22/2021 2:45 PM AMBULANCE OPERATIONS SUPERVISOR [facility] Comment:NO FURTHER WORKUP PE RFORMED CULTURE RESULTS ALSO MIXED GROWTH OF DISTAL URETHRA CONTAMINANTS. 02/22/2021 2:45 PM AMBULANCE OPERATIONS SUPERVISOR [facility] Urine URINE SPECIMEN / Unknown Non-Phlebotomy Collection / Unknown 02/20/2021 8:36 PM AMBULANCE OPERATIONS SUPERVISOR 02/20/2021 8:37 PM AMBULANCE OPERATIONS SUPERVISOR Noe Crews [facility] MICROBIOLOGY - GENER AL ORDERABLES Final Result [facility] [address] [facility] [place] [address], [place] * (ABNORMAL) Urinalysis Reflex if Indicated by Abnormal Results (02/20/2021 8:36 PM AMBULANCE OPERATIONS SUPERVISOR) SPECIFIC GRAVITY 1.010 1.003 - 1.030 02/20/2021 8:55 PM AMBULANCE OPERATIONS SUPERVISOR [facility] URINE PH 6.5 5.0 - 9.0 02/20/2021 8:55 PM AMBULANCE OPERATIONS SUPERVISOR [facility] WBC ESTERASE 25 /uL(A) Negative 02/20/2021 8:55 PM AMBULANCE OPERATIONS SUPERVISOR [facility] NITRITE Negative Negative 02/20/2021 8:55 PM AMBULANCE OPERATIONS SUPERVISOR [facility] PROTEIN, RANDOM URINE Negative Negative 02/20/2021 8:55 PM AMBULANCE OPERATIONS SUPERVISOR [facility] URINE GLUCOSE, QUAL Negative Negative 02/20/2021 8:55 PM AMBULANCE OPERATIONS SUPERVISOR [facility] URINE KETONES Negative Negative 02/20/2021 8:55 PM AMBULANCE OPERATIONS SUPERVISOR [facility] UROBILINOGEN Normal Normal mg/dL 02/20/2021 8:55 PM AMBULANCE OPERATIONS SUPERVISOR [facility] URINE BLOOD Negative Negative jerardo/ul 02/20/2021 8:55 PM AMBULANCE OPERATIONS SUPERVISOR [facility] URINALYSIS COLOR Yellow 02/21/20 8:55 PM AMBULANCE OPERATIONS SUPERVISOR [facility] URINALYSIS CLARITY Clear 02/20/2021 8:55 PM AMBULANCE OPERATIONS SUPERVISOR [facility] WBC (Urine) 11-20(A) Negative, 0-5 /hpf 02/20/2021 8:55 PM AMBULANCE OPERATIONS SUPERVISOR [facility] URINE RBC'S 0-2 Negative, 0-2 /hpf 02/20/2021 8:55 PM AMBULANCE OPERATIONS SUPERVISOR [facility] EPITHELIAL CELLS Large amount squamous /lpf 02/20/2021 8:55 PM AMBULANCE OPERATIONS SUPERVISOR [facility] BACTERIA, URINE Many(A) Negative /hpf 02/20/2021 8:55 PM AMBULANCE OPERATIONS SUPERVISOR [facility] Urine URINE SPECIMEN / Unknown Non-Phlebotomy Collection / Unknown 02/20/2021 8:36 PM AMBULANCE OPERATIONS SUPERVISOR 02/20/2021 8:37 PM AMBULANCE OPERATIONS SUPERVISOR us Noe Crews PAC URINE ORDERABLES Fin al Result [facility] [address] [place] [address] * Lipase (02/20/2021 8:30 PM AMBULANCE OPERATIONS SUPERVISOR) LIPASE 25.0 13 - 60 U/L 02/20/2021 8:54 PM AMBULANCE OPERATIONS SUPERVISOR [facility] Blood Venipuncture / Unknown 02/20/2021 8:30 PM AMBULANCE OPERATIONS SUPERVISOR 02/20/2021 8:35 PM AMBULANCE OPERATIONS SUPERVISOR Noe Crews PAC CHEMISTRY ORDERABLES Final Result [facility] [address] [place] [address] * POCT Urine HCG () (02/20/2021 8:17 PM AMBULANCE OPERATIONS SUPERVISOR) POC URINE Negative POC URINE CONTROL Chef De Cuisine Pass Urine 02/20/2021 8:17 PM AMBULANCE OPERATIONS SUPERVISOR Noe Crews PAC POINT OF CARE TESTIN G (MANUAL) Final Result documented in this encounter Visit Diagnoses Not on filedocumented in this encounter Admitting Diagnoses Diagnosis Umbilical [...] On Fri02/20/21 at 2000 02/20/2021 8:36 PM AMBULANCE OPERATIONS SUPERVISOR 250 mL/hr 0.9 % sodium chloride solution at 250 mL/hr, Intravenous, ONCE, 1 dose, On Fri02/20/21 at 2300 02/21/2021 12:58 AM AMBULANCE OPERATIONS SUPERVISOR 250 mL/hr 0.9 % sodium chloride solution at 100 mL/hr, Intravenous, CONTINUOUS, Starting on Fri02/21/21 at 0000, Until Chelo 02/22/21 at 1406 02/22/2021 4:50 AM AMBULANCE OPERATIONS SUPERVISOR 100 mL/hr 02/21/2021 6:10 PM AMBULANCE OPERATIONS SUPERVISOR 100 mL/hr 02/21/2021 12:58 AM AMBULANCE OPERATIONS SUPERVISOR 100 mL/hr acetaminophen (TYLENOL) suppository 650 mg 650 mg, Rectal, EVERY 4 HOURS PRN, Starting on Fri02/20/21 at 2315, Until Fri02/22/21 at 1406, Mild pain or more severe pain if patient requests, Fever, If patient is taking oral intake without complications and both PO/NE orders are active, administer through the oral route. acetaminophen (TYLENOL) tablet 650 mg 650 mg, Oral, EVERY 4 HOURS PRN, Starting on Fri02/20/21 at 2315, Until Fri02/22/21 at 1406, Mild pain or more severe pain if patient requests, Fever, If patient is taking oral intake without complications and both PO/NE orders are active, administer through the oral route. aluminum & magnesium hydroxide-simethicone (MAALOX, MYLANTA) 200-200-20 MG/5ML SUSP 20 mL 20 mL, Oral, EVERY 6 HOURS PRN, Starting on Fri02/20/21 at 2315, Until Fri02/22/21 at 1406, Indigestion, Heartburn, Shake well. bupivacaine (PF) (MARCAINE PF) 0.5 % injection ONCE (in OR), Starting on Fri02/21/21 at 1412, Until Fri02/21/21 at 1429, INTRA-OP Given 02/21/2021 2:12 PM AMBULANCE OPERATIONS SUPERVISOR 25 mL Operative Site calcium carbonate (TUMS) chewable tablet 1,000 mg [...] Gastroesophageal Reflux Disease Given 02/22/2021 7:25 AM AMBULANCE OPERATIONS SUPERVISOR 10 mg Given 02/21/2021 8:41 PM AMBULANCE OPERATIONS SUPERVISOR 10 mg Given 02/21/2021 10:07 AM AMBULANCE OPERATIONS SUPERVISOR 10 mg famotidine (PEPCID) injection 20 mg 20 mg, Intravenous, ONCE, 1 dose, On Fri02/20/21 at 2000, Indications: Symptomatic Gastroesophageal Reflux DiseaseIndications:Symptomatic Gastroesophageal Reflux Disease Given 02/20/2021 8:38 PM AMBULANCE OPERATIONS SUPERVISOR 20 mg fentaNYL (PF) (SUBLIMAZE) injection 50 mcg 50 mcg, Intravenous, ONCE, 1 dose, On Fri02/20/21 at 2300 Given 02/20/2021 11:14 PM AMBULANCE OPERATIONS SUPERVISOR 50 mcg HYDROcodone-acetaminophen (NORCO) 5-325 MG per [...] 2) increasing dosage, or 3) changing to E LEARNING DEVELOPER. Give 1 Tablet for moderate pain rating [...] 2) increasing dosage, or 3) changing to E LEARNING DEVELOPER. Given 02/21/2021 10:0 7 AM AMBULANCE OPERATIONS SUPERVISOR 0.5 mg Given 02/21/2021 2:12 AM AMBULANCE OPERATIONS SUPERVISOR 0.5 mg iopamidol (ISOVUE-370) 76 % injection 111 mL 111 mL, Intravenous, ONCE, 1 dose, On Fri02/20/21 at 2200 Given 02/20/2021 10:00 PM AMBULANCE OPERATIONS SUPERVISOR 111 mL ketorolac (TORADOL) injection 15 mg 15 mg, Intravenous, EVERY 6 HOURS PRN, Starting on Fri02/20/21 at 2317, Until Fri02/22/21 at 1406, Mild pain or more severe pain if patient requests Given 02/22/2021 11:15 AM AMBULANCE OPERATIONS SUPERVISOR 15 mg Given 02/22/2021 1:41 AM AMBULANCE OPERATIONS SUPERVISOR 15 mg Given 02/21/2021 7:27 AM AMBULANCE OPERATIONS SUPERVISOR 15 mg ketorolac (TORADOL) injection 15 mg 15 mg, Intravenous, EVERY 6 HOURS, 5 doses, First dose on Fri02/21/21 at 1500, Last dose on Fri02/22/21 at 1500 Given 02/22/2021 7:24 AM AMBULANCE OPERATIONS SUPERVISOR 15 mg Given 02/21/2021 8:42 PM AMBULANCE OPERATIONS SUPERVISOR 15 mg Given 02/21/2021 3:43 PM AMBULANCE OPERATIONS SUPERVISOR 15 mg levoFLOXacin (LEVAQUIN) tablet 750 mg 750 mg, Oral, DAILY, First dose on Fri02/20/21 at 2300, Until Discontinued, Indications: Intra-Abdominal InfectionIndications:Intra-Abdominal Infection Given 02/21/2021 8:41 PM AMBULANCE OPERATIONS SUPERVISOR 750 mg Given 02/20/2021 11:14 PM AMBULANCE OPERATIONS SUPERVISOR 750 mg lidocaine-EPINEPHrine 1 %-1:281517 injection ONCE (in OR), Starting on Fri02/21/21 at 1412, Until Fri02/21/21 at 1429, INTRA-OP Given 02/21/2021 2:12 PM AMBULANCE OPERATIONS SUPERVISOR 25 mL Operative Site loratadine (CLARITIN) tablet 10 mg 10 mg, Oral, DAILY, First dose on Fri02/21/21 at 0900, Until Discontinued Given 02/22/2021 7:25 AM AMBULANCE OPERATIONS SUPERVISOR 10 mg Given 02/21/2021 10:07 AM AMBULANCE OPERATIONS SUPERVISOR 10 mg magnesium hydroxide (MILK OF MAGNESIA) [...] recurs after ondansetron. Given 02/21/2021 1:24 PM AMBULANCE OPERATIONS SUPERVISOR 10 mg metroNIDAZOLE (FLAGYL) tablet 500 mg 500 mg, Oral, ONCE, 1 dose, On Fri02/20/21 at 2300, Indications: Intra-Abdominal InfectionIndications:Intra-Abdominal Infection Given 02/20/2021 11:14 PM AMBULANCE OPERATIONS SUPERVISOR 500 mg nicotine (NICODERM CQ) 14 MG/24HR [...] tolerate oral medications. Given 02/21/2021 7:40 PM AMBULANCE OPERATIONS SUPERVISOR 4 mg Given 02/21/2021 11:53 AM AMBULANCE OPERATIONS SUPERVISOR 4 mg Given 02/21/2021 2:12 AM AMBULANCE OPERATIONS SUPERVISOR 4 mg ondansetron (ZOFRAN-ODT) disintegrating tablet 4 [...] recurs after ondansetron. Given 02/21/2021 3:43 PM AMBULANCE OPERATIONS SUPERVISOR 5 mg Given 02/21/2021 7:16 AM AMBULANCE OPERATIONS SUPERVISOR 5 mg TRANSDERMAL PATCH ACKNOWLEDGEMENT Miscellaneous, DAILY, [...] Do not crush. Given 02/22/2021 7:25 AM AMBULANCE OPERATIONS SUPERVISOR 150 mg Given 02/21/2021 10:07 AM AMBULANCE OPERATIONS SUPERVISOR 150 mg documented in this encounter Active and Recently Administered Medications Times are shown in AMBULANCE OPERATIONS SUPERVISOR. Scheduled Medication Order 02/20/2021 02/21/2021 02/22/2021 0.9 % sodium chloride solution (COMPLETED) at 250 mL/hr, Intravenous, ONCE, 1 dose, On Fri02/20/21 at 2000 203 (New Bag - Provider: Diana Shetty RN) 0009 (Infusing on Transfer - Provider: Muna Llamas RN)0600 (Stopped - Provider: Kj Lynn RN) 0.9 % sodium chloride solution (COMPLETED) at 250 mL/hr, Intravenous, ONCE, 1 dose, On Fri02/20/21 at 2300 0058 (New Bag - Provider: Kj Ware RN)0600 (Stopped - Provider: Kj Lynn, GRETA) famotidine (PEPCID) injection 10 mg 10 mg, Intravenous, 2 TIMES DAILY, First dose on Fri02/21/21 at 0230, Until Discontinued, Indications: Stress Ulcer Prophylaxis, Symptomatic Gastroesophageal Reflux Disease 0217 (Given - Provider: Kj Ware RN)1007 (Given - Provider: jK Lynn, GRETA)204 (Given - Provider: Joyce Troncoso RN) 0725 (Given - Provider: Kj Lynn, GRETA) famotidine (PEPCID) injection 20 mg (COMPLETED) 20 mg, Intravenous, ONCE, 1 dose, On Fri02/20/21 at 2000, Indications: Symptomatic Gastroesophageal Reflux Disease 2037 (Given [...] at 1500 1543 (Given - Provider: Kj Lynn RN)2042 (Given - Provider: Joyce Troncoso, GRETA) 0300 (Not Given - Provider: Joyce Troncoso RN - Reason: Patient/family refused)0724 (Given - Provider: Kj Lynn RN) levoFLOXacin (LEVAQUIN) tablet 750 mg 750 mg, Oral, DAILY, First dose on Fri02/20/21 at 2300, Until Discontinued, Indications: Intra-Abdominal Infection 2313 (Given - Provider: Muna Llamas RN) 2040 (Given - Provider: Joyce Troncoso, GRETA) loratadine (CLARITIN) tablet 10 mg 10 mg, Oral, DAILY, First dose on Fri02/21/21 at 0900, Until Discontinued 1007 (Given - Provider: Kj Lynn RN) 0725 (Given - Provider: Kj Lynn RN) metroNIDAZOLE (FLAGYL) tablet 500 mg (COMPLETED) 500 mg, Oral, ONCE, 1 dose, On Fri02/20/21 at 2300, Indications: Intra-Abdominal Infection 2313 (Given - Provider: Muna Llamas, GRETA) nicotine [...] Acknowledged' JUN action when documenting on the JUN. 0900 (Acknowledged - Provider: jK Lynn, RN) 0800 (Acknowledged - Provider: Kj Lynn, RN) venlafaxine (EFFEXOR-XR) XR capsule 150 mg [...] Ware RN)1810 (New Bag - Provider: Kj Lynn, GRETA) 0448 (Stopped - Provider: Joyce Troncoso, GRETA)0450 (New Bag - Provider: Joyce Troncoso, RN)1015 (Stopped - Provider: Kj Lynn, GRETA) PRN Medication Order 02/20/2021 02/21/2021 02/22/2021 acetaminophen (TYLENOL) suppository 650 mg(Linked Group 1) 650 mg, Rectal, EVERY 4 HOURS PRN, Starting on Fri02/20/21 at 2315, Until Chelo 02/22/21 at 1406, Mild pain or more severe pain if patient requests, Fever, If patient is taking oral intake without complications and both PO/NE orders are active, administer through the oral route. acetaminophen (TYLENOL) tablet 650 mg(Linked Group 1) 650 mg, Oral, EVERY 4 HOURS PRN, Starting on Fri02/20/21 at 2315, Until Chelo 02/22/21 at 1406, Mild pain or more severe pain if patient requests, Fever, If patient is taking oral intake without complications and both PO/NE orders are active, administer through the oral route. aluminum & magnesium hydroxide-simethicone (MAALOX, MYLANTA) 200-200-20 MG/5ML SUSP 20 mL 20 mL, Oral, EVERY 6 HOURS PRN, Starting on Fri02/20/21 at 2315, Until Fri02/22/21 at 1406, Indigestion, Heartburn, Shake well. bupivacaine [...] 2) increasing dosage, or 3) changing to E LEARNING DEVELOPER. Give 1 Tablet for moderate pain rating [...] 2) increasing dosage, or 3) changing to E LEARNING DEVELOPER. 021 (Given - Provider: Kj Ware RN)1006 (Given - Provider: Kj Lynn RN) ketorolac (TORADOL) injection 15 mg 15 mg, Intravenous, EVERY 6 HOURS PRN, Starting on Fri02/20/21 at 2317, Until Chelo 02/22/21 at 1406, Mild pain or more severe pain if patient requests 005 (Given - Provider: Kj Ware, RN)07 (Given - Provider: Kj Lynn, RN) 0141 (Given - Provider: Joyce Troncoso, RN)1115 (Given - Provider: Gracia Rodriguez, GRETA) lidocaine-EPINEPHrine 1 %-1:157239 injection (CANCELED) ONCE (in OR), Starting on [...] at 2315, Until Chelo 02/22/21 at 1406, Other, Sleep metoclopramide (REGLAN) injection 5 mg 5 mg, Intravenous, EVERY 6 HOURS PRN, Starting on Fri02/20/21 at 2315, Until Chelo 02/22/21 at 1406, Nausea - 3rd line, Third Line Antiemetic Give if nausea/vomiting recurs after ondansetron. 1324 (Given - Provider: Hunter Guerrero APRN, RESPITE COORDINATOR) ondansetron (ZOFRAN) injection 4 mg(Linked Group 2) 4 mg, Intravenous, EVERY 6 HOURS PRN, Starting on Fri02/20/21 at 2315, Until Chelo 02/22/21 at 1406, Nausea - 1st line, 1. First Line Antiemetic. 2. Use Injection only if patient unable to tolerate oral medications. 021 (Given - Provider: Kj Ware, RN)115 (Given - Provider: Kj Lynn, RN)1939 (Given - Provider: Joyce Troncoso, GRETA) ondansetron (ZOFRAN-ODT) disintegrating tablet 4 mg(Linked Group 2) 4 mg, Oral, EVERY 6 HOURS PRN, Starting on Fri02/20/21 at 2315, Until Fri02/22/21 at 1406, Nausea - 1st line, 1. First Line Antiemetic. 2. Use PO form unless unable to tolerate PO medications, then use Injection 0212 (See Alternative - Provider: Kj Ware, GRETA)115 (See Alternative - Provider: Kj Lynn RN)1939 (See Alternative - Provider: Joyce Troncoso, GRETA) polyethylene glycol (GLYCOLAX, MIRALAX) packet 17 g 17 g, Oral, 2 TIMES DAILY PRN, Starting on Fri02/20/21 at 2315, Until Fri02/22/21 at 1406, Constipation - 1st line, Dilute [...] Kj Lynn RN)1543 (Given - Provider: Kj Lynn, GRETA) Linked Groups Order Group 1: acetaminophen (TYLENOL) tablet 650 mgJump to med 650 mg, Oral, EVERY 4 HOURS PRN, Starting on Fri02/20/21 at 2315, Until Chelo 02/22/21 at 1406, Mild pain or more severe pain if patient requests, Fever, If patient is taking oral intake without complications and both PO/NE orders are active, administer through the oral route. Or acetaminophen (TYLENOL) suppository 650 mgJump to med 650 mg, Rectal, EVERY 4 HOURS PRN, Starting on Fri02/20/21 at 2315, Until Chelo 02/22/21 at 1406, Mild pain or more severe pain if patient requests, Fever, If patient is taking oral intake without complications and both PO/NE orders are active, administer through the oral [...] medications. documented in this encounter Care Teams Environmental Safety Specialist Relationship Specialty Start Date End Date Ousmane Gan MD #[address] [address] PCP - General Family Medicine 10/24/20 04/08/21 Paco Reagan APRN, COMPONENT INSPECTOR #[address] [address] Nurse Practitioner Advanced Practice Nurse 10/24/20 documented as of this encounter
--- OUTSIDE RECORDS SUMMARY | 2024-04-17 13:53 | XMS_ITS | Encounter Summary ---
Author Organization [facility] Care Team Providers Care Binder And Box Builder Name Role Phone Ousmane Gan MD Primary Care Provider [phone] Paco Reagan APRN, POST ANESTHESIA NURSE Unavailable Encounter Details Date Type Department Care Team (Latest Contact Info) Description 02/21/2021 Travel Social History Tobacco Use Types Packs/Day [...] PM CDT Legal Sex Female 2:47 AM HAND CHAIN MAKER Gender Identity Female 11/25/2022 4:06 PM CDT Sexual Orientation Not on file Occupation Industry Job Start Date Job End Date [employer] Not on file Not on file Not on file COVID-19 Exposure Response Date Recorded In the last month, have you been in contact with someone who was confirmed or suspected to have Coronavirus / COVID-19? No / Unsure 02/21/2021 9:48 AM HAND CHAIN MAKER documented as of this encounter Plan of Treatment Upcoming Encounters Date Type Department Care Team (Late st Contact Info) Description 04/28/2024 10:00 AM HAND CHAIN MAKER Appointment [facility] Cardiology Stress [address] [place] [address] Karen Andino, SENIOR UI UX DEVELOPER, POST ANESTHESIA NURSE [address] [place] [address] Discharge Disposition: Discharged to home or Selfcare 06/02/2024 10:00 AM HAND CHAIN MAKER Office Visit [facility] [address] [place] [address] Kelin Castle, PAC [address] [place] [address] documented as of this encounter Visit Diagnoses Not on filedocumented in this encounter Care Teams Binder And Box Builder Relationship Specialty Start Date End Date Ousmane Gan MD #[address] [address] PCP - General Family Medicine 10/24/20 04/08/21 Paco Reagan, RYAN, POST ANESTHESIA NURSE #[address] [address] Nurse Practitioner Advanced Practice Nurse 10/24/20 documented as of this encounter
--- OUTSIDE RECORDS SUMMARY | 2024-04-17 13:53 | XMS_ITS | Encounter Summary ---
Author Organization [facility] Care Team Providers Care Pedal Assembler Name Role Phone Ousmane Gan MD Primary Care Provider [phone] Paco Reagan APRN, TRAVELING AUDITOR Unavailable Encounter Details Date Type Department Care Team (Latest Contact Info) Description 03/07/2021 Travel Social History Tobacco Use Types Packs/Day [...] PM CDT Legal Sex Female 2:47 AM SUPERVISOR ELECTRON TUBE PROCESSING Gender Identity Female 11/25/2022 4:06 PM CDT Sexual Orientation Not on file Occupation Industry Job Start Date Job End Date [employer] Not on file Not on file Not on file COVID-19 Exposure Response Date Recorded In the last month, have you been in contact with someone who was confirmed or suspected to have Coronavirus / COVID-19? No / Unsure 03/07/2021 1:11 PM SUPERVISOR ELECTRON TUBE PROCESSING documented as of this encounter Plan of Treatment Upcoming Encounters Date Type Department Care Team (Late st Contact Info) Description 04/28/2024 10:00 AM SUPERVISOR ELECTRON TUBE PROCESSING Appointment [facility] Cardiology Stress [address] [place] [address] Karen Andino, TYPING SECTION CHIEF, TRAVELING AUDITOR [address] [place] [address] Discharge Disposition: Discharged to home or Selfcare 06/02/2024 10:00 AM SUPERVISOR ELECTRON TUBE PROCESSING Office Visit [facility] [address] [place] [address] Kelin Castle, PAC [address] [place] [address] documented as of this encounter Visit Diagnoses Not on filedocumented in this encounter Care Teams Pedal Assembler Relationship Specialty Start Date End Date Ousmane Gan MD #[address] [address] PCP - General Family Medicine 10/24/20 04/08/21 Paco Reagan, RYAN, TRAVELING AUDITOR #[address] [address] Nurse Practitioner Advanced Practice Nurse 10/24/20 documented as of this encounter
--- OUTSIDE RECORDS SUMMARY | 2024-04-17 13:53 | XMS_ITS | Encounter Summary ---
Author Organization [facility] Address [address] [place] [address] Phone Care Team Providers Care Forming Roll Operator Name Role Phone Ousmane Gan MD Primary Care Provider [phone] Paco Reagan APRN, POT FIREMAN Unavailable Reason for Visit * Reason Onset Date Comments Results 03/05/2021 APPENDECTOMY pat hology Encounter Details Date Type Department Care Team (Late st Contact Info) Description 03/05/2021 Telephone [facility] - General [facility] - [place] #[address] [address] Rm Butler MD #[address] [address] Results (APPENDECTOMY pathology ) Social History Tobacco Use Types Packs/Day [...] CDT Legal Sex Female 2:47 AM PRODUCT LINE MANAGER Gender Identity Female 11/25/2022 4:06 PM [...] COVID-19? No / Unsure 02/21/2021 9:48 AM PRODUCT LINE MANAGER documented as of this encounter Miscellaneous Notes * Telephone Encounter - Ingris De La Cruz RN - 03/05/2021 10:01 AM CST Patient notified of results. Patient verbalizes understanding. UCT LINE MANAGER * Telephone Encounter - Ingris De La Cruz RN - 03/05/2021 10:01 AM CST ----- Message from Rm Butler MD sent at 03/01/2021 5:20 PM PRODUCT LINE MANAGER ----- Please notify patient of pathology results, findings compatible with early acute appendicitis No atypia UCT LINE MANAGER documented in this encounter Plan of Treatment Upcoming Encounters Date Type Department Care Team (Late st Contact Info) Description 04/28/2024 10:00 AM PRODUCT LINE MANAGER Appointment [facility] Cardiology Stress 1 [place] [address] Karen Andino APRN, POT FIREMAN #2 [place] [address] Discharge Disposition: Discharged to home or Selfcare 06/02/2024 10:00 AM PRODUCT LINE MANAGER Office Visit [facility] - [facility] Medicine [facility] #2 [place] [address] Kelin Castle, PAC #2 [place] [address] documented as of this encounter Visit Diagnoses Not on filedocumented in this encounter Care Teams Forming Roll Operator Relationship Specialty Start Date End Date Ousmane Gan MD #[address] [address] PCP - General Family Medicine 10/24/20 04/08/21 Paco Reagan APRN, POT FIREMAN #[address] [address] Nurse Practitioner Advanced Practice Nurse 10/24/20 documented as of this encounter
--- OUTSIDE RECORDS SUMMARY | 2024-04-17 13:53 | XMS_ITS | Encounter Summary ---
Author Organization [facility] Care Team Providers Care Maintainer Sewer And Waterworks Name Role Phone Ousmane Gan MD Primary Care Provider [phone] Paco Reagan APRN, BUNDLE TIER Unavailable Encounter Details Date Type Department Care Team (Latest Contact Info) Description 02/20/2021 Travel Social History Tobacco Use Types Packs/Day [...] CDT Legal Sex Female 2:47 AM HAND DRAWER IN Gender Identity Female 11/25/2022 4:06 PM CDT Sexual Orientation Not on file Occupation Industry Job Start Date Job End Date [employer]. Not on file Not on file Not on file COVID-19 Exposure Response Date Recorded In the last month, have you been in contact with someone who was confirmed or suspected to have Coronavirus / COVID-19? No / Unsure 02/20/2021 7:37 PM HAND DRAWER IN documented as of this encounter Plan of Treatment Upcoming Encounters Date Type Department Care Team (Late st Contact Info) Description 04/28/2024 10:00 AM HAND DRAWER IN Appointment [facility] Cardiology Stress 1 [place] [address] Karen Andino, SECURITY SERVICES SPECIALIST, BUNDLE TIER #2 [place] [address] Discharge Disposition: Discharged to home or Selfcare 06/02/2024 10:00 AM HAND DRAWER IN Office Visit [facility] - Family [facility] #2 [place] [address] Kelin Castle, PAC [address]2 [place] [address] documented as of this encounter Visit Diagnoses Not on filedocumented in this encounter Care Teams Maintainer Sewer And Waterworks Relationship Specialty Start Date End Date Ousmane Gan MD #[address] [address] PCP - General Family Medicine 10/24/20 04/08/21 Paco Reagan, RYAN, BUNDLE TIER #[address] [address] Nurse Practitioner Advanced Practice Nurse 10/24/20 documented as of this encounter
--- OUTSIDE RECORDS SUMMARY | 2024-04-17 13:53 | XMS_ITS | Encounter Summary ---
Author Organization [facility] Address [address] [place] [address] Phone Care Team Providers Care Retail Attendant Name Role Phone Ousmane Gan MD Primary Care Provider [phone] Paco Reagan APRN, LONG GOODS DRIER Unavailable Reason for Visit * Reason Onset Date Comments called to cancel PT 01/11/2021 Encounter Details Date Type Department Care Team (Late st Contact Info) Description 01/11/2021 Telephone [facility] Rehab at [facility] [address] [place] [address] Eli Tejada, PT [place] called to cancel PT Social History Tobacco Use Types Packs/Day Years [...] PM CDT Legal Sex Female 2:47 AM FILLER BLENDER Gender Identity Female 11/25/2022 4:06 PM CDT [...] Telephone Encounter - Eli Tejada, PT - 01/11/2021 9:44 AM CDT Patient called to cancel PT due to being up all night with a sick child. She said she'd call back to schedule another day. Patient has several missed visits now for PT for her neck. documented in this encounter Plan of Treatment Upcoming Encounters Date Type Department Care Team (Late st Contact Info) Description 04/28/2024 10:00 AM FILLER BLENDER [facility] Stress 1 [place] [address] Karen Andino APRN, LONG GOODS DRIER #2 [place] [address] Discharge Disposition: Discharged to home or Selfcare 06/02/2024 10:00 AM FILLER BLENDER Office Visit [facility] - [facility] Medicine [facility] #2 [place] [address] Kelin Castle, PAC [address]2 [place] [address] documented as of this encounter Visit Diagnoses Not on filedocumented in this encounter Care Teams Retail Attendant Relationship Specialty Start Date End Date Ousmane Gan MD #[address] [address] PCP - General Family Medicine 10/24/20 04/08/21 Paco Reagan APRN, LONG GOODS DRIER #[address] [place] [address] Nurse Practitioner Advanced Practice Nurse 10/24/20 documented as of this encounter
--- OUTSIDE RECORDS SUMMARY | 2024-04-17 13:53 | XMS_ITS | Encounter Summary ---
Author Organization [facility] Address [address] [place] [address] Phone Care Team Providers Care Senior Product Development Scientist Name Role Phone Ousmane Gan MD Primary Care Provider [phone] Paco Reagan APRN, FOUNDRY ENGINEER Unavailable Reason for Visit * Reason Onset Date Comments cancel 01/09/2021 Encounter Details Date Type Department Care Team (Late st Contact Info) Description 01/09/2021 Telephone [facility] Rehab at [facility] [address] [place] [address] Deb Parikh OT [place] cancel Social History Tobacco Use Types Packs/Day Years [...] PM CDT Legal Sex Female 2:47 AM CUTTING MACHINE TENDER HELPER Gender Identity Female 11/25/2022 4:06 PM [...] encounter Miscellaneous Notes * Telephone Encounter - Deb Parikh OTRL - 01/09/2021 11:43 AM CDT Patient called to cancel her appointment today due to having a shirt creaser back out. EMILIANO GARCIA documented in this encounter Plan of Treatment Upcoming Encounters Date Type Department Care Team (Late st Contact Info) Description 04/28/2024 10:00 AM CUTTING MACHINE TENDER HELPER Appointment [facility] Cardiology Stress 1 [place] [address] Karen Andino APRN, FOUNDRY ENGINEER #2 [place] [address] Discharge Disposition: Discharged to home or Selfcare 06/02/2024 10:00 AM CUTTING MACHINE TENDER HELPER Office Visit [facility] - Family Medicine [facility] #2 [place] [address] Kelin Castle, PAC #2 [place] [address] documented as of this encounter Visit Diagnoses Not on filedocumented in this encounter Care Teams Senior Product Development Scientist Relationship Specialty Start Date End Date Ousmane Gan MD #[address] [address] PCP - General Family Medicine 10/24/20 04/08/21 Paco Reagan APRN, FOUNDRY ENGINEER #[address] [address] Nurse Practitioner Advanced Practice Nurse 10/24/20 documented as of this encounter
--- OUTSIDE RECORDS SUMMARY | 2024-04-17 13:53 | XMS_ITS | Encounter Summary ---
Author Organization [facility] Address [address] [place] [address] Phone Care Team Providers Care Special Education Inclusion Teacher Name Role Phone Ousmane Gan MD Primary Care Provider [phone] Paco Reagan APRN, HAND INSERTER OPERATOR Unavailable Reason for Visit * Reason Comments Follow-up surgery appendectomy Encounter Details Date Type Department Care Team (Late st Contact Info) Description 03/15/2021 10:00 AM UNIT SUPPORT REPRESENTATIVE Office Visit [facility] - Family [facility] #2 [place] [address] Kj Merlos MD #[address] [address] Umbilical hernia without obstruction and without gangrene (Primary Dx); Other acute appendicitis Discharge Disposition: Discharged to home or [...] PM CDT Legal Sex Female 2:47 AM UNIT SUPPORT REPRESENTATIVE Gender Identity Female 11/25/2022 4:06 PM [...] COVID-19? No / Unsure 03/15/2021 9:52 AM UNIT SUPPORT REPRESENTATIVE documented as of this encounter Last Filed Vital Signs Vital Sign Reading Time Taken Comments Blood Pressure 120/68 03/15/2021 10:06 AM UNIT SUPPORT REPRESENTATIVE Pulse 81 03/15/2021 10:06 AM UNIT SUPPORT REPRESENTATIVE Temperature 36.7 ??C (98.1 ??F) 03/15/2021 10:[address] Respiratory Rate 16 03/15/2021 10:06 AM UNIT SUPPORT REPRESENTATIVE Oxygen Saturation 98% 03/15/2021 10:06 AM UNIT SUPPORT REPRESENTATIVE Inhaled Oxygen Concentration - - Weight 99.3 kg (219 lb) 03/15/2021 10:06 AM UNIT SUPPORT REPRESENTATIVE Height 152.4 cm (5') 03/15/2021 10:06 AM UNIT SUPPORT REPRESENTATIVE Body Mass Index 42.77 03/15/2021 10:06 AM UNIT SUPPORT REPRESENTATIVE documented in this encounter Progress Notes * Mayelin Roy, RMA - 03/15/2021 10:00 AM CST Esther Day, 30 y.o., female is here for Follow-up Medication Refills: Patient reports/denies need for medication refills. Orders Pended: no Requested Prescriptions No prescriptions requested or ordered in this encounter Home Medications Medication Sig Start Date End Date Taking? Authorizing Provider Acetaminophen (TYLENOL PO) Take 650 mg by mouth every 4 hours as needed. Yes Provider, MD Sunita ergocalciferol (VITAMIN D) 87605 UNIT Capsule Take 1 Capsule by mouth [...] Health Maintenance Due Topic Date Due ??? SARS-COV-2 Immunization (1) Never done ??? Pap Smear Never done Orders Pended: no The following BPA's have been addressed with the patient today: Pap pt education functional SUPPORT REPRESENTATIVE * Kj Merlos MD - 03/15/2021 10:00 AM CST SUBJECTIVE: Esther Day is here to follow-up/ evaluation on her No diagnosis found. Esther Day says she has been feeling [...] RELEASE RIGHT; Surgeon: Trent Blanton MD; Location: [facility]; Service: Orthopaedic ??? EXPLORATORY OF ABDOMEN 2002 Endo fundal plication ??? LAPAROSCOPIC APPENDECTOMY N/A 02/21/2021 Procedure: LAPAROSCOPIC APPENDECTOMY; Surgeon: Rm Lim MD; Location: [facility]; Service: General ??? LIPOMA RESECTION Left 07/04/2017 Procedure: EXCISION LIPOMA LEFT UPPER BACK; Surgeon: Gareth Em MD; Location: [facility]; Service: General ??? LIPOMA RESECTION Bilateral 02/18/2019 Procedure: EXCISION LIPOMAS LOWER BACK TIMES TWO; Surgeon: Escobar Goodman MD; Location: [facility]; Service: General ??? MYRINGOTOMY Bilateral ??? TONSILLECTOMY ??? UMBILICAL HERNIA REPAIR N/A 02/21/2021 Procedure: LAPAROSCOPIC UMBILICAL HERNIA REPAIR- NO MESH; Surgeon: Rm Lim MD; Location: [facility]; Service: General ??? WRIST GANGLION EXCISION Right 04/29/2018 Procedure: GANGLION CYST EXCISION REMOVAL RIGHT WRIST; Surgeon: Trent Blanton MD; Location: [facility]; Service: Orthopaedic Social History Tobacco [...] her medication and denies medication side effects. S/p appy and umb hernia repair Here for follow up Fell out bed last week. Some llq pain. Pain over incision site llq Dr. lim performed the surgery Saw dr. lim day prior to thaniving. Told no need to see him anymore No d/c appetitie okay Certain movements provoke pain coughing provokes pain Outpatient Medications Marked as Taking for the 03/15/21 encounter (Office Visit) with Kj Merlos MD [...] 35.6 (L) 10/25/2020 LDL 135 (H) 10/25/2020 [id number] 10/25/2020 FOLAT 11.2 10/25/2020 ESR 21 [...] y.o. female in no acute distress. Vitals: 03/15/21 1006 BP: 120/68 Pulse: 81 Resp: 16 Temp: 98.1 ??F (36.7 ??C) TempSrc: Temporal SpO2: 98% Weight: 219 lb (99.3 kg) Height: 5' (1.524 m) Body mass index is 42.77 kg/m??. BP Readings from Last 3 Encounters: 03/15/21 120/68 03/07/21 126/78 02/22/21 125/77 Wt Readings from Last 3 Encounters: 03/15/21 219 lb (99.3 kg) 03/07/21 224 lb (101.6 kg) 02/21/21 220 lb 14.4 oz (100.2 kg) SKIN: Warm and dry. BACK: No spine or costovertebral angle tenderness. LUNGS: Clear to auscultationand percussion. HEART:normal rate, regular rhythm, normal S1, S2,. ABDOMEN: Bowel sounds are active. No masses. No organomegaly, no tenderness. No bruits. EXTREMITIES: No edema. Mask Obese fundiplication midline scar upper abd Lap surg scars luq, suprapubic c/d/i mild tenderness above umbilicus. Mild induration Lap scar c/d/i, mildly red, rosa tender llq. No discharge ASSESSMENT AND PLAN There are no diagnoses linked to this encounter. There are no discontinued medications. No follow-ups on file. Continue current medication After visit summary discussed with patient. Documentation for this visit on 03/15/2021 was completed using a template. I have seen and examined the patient. Everything documented was personally performed at this visit with the necessary additions, deletions and changes made as appropriate. Appendectomy/umbilical hernia repair: No mesh. llq surg scar looks a little red and a bit tender. Vitals fine. Urged her to keep area clean. Call if anything changes. No heavy lifting. Wants to wait on covid shots Obesity: Urged slow and steady weight loss. SUPPORT REPRESENTATIVE documented in this encounter Plan of Treatment Upcoming Encounters Date Type Department Care Team (Late st Contact Info) Description 04/28/2024 10:00 AM UNIT SUPPORT REPRESENTATIVE Appointment [facility] Cardiology Stress [address] [place] [address] Karen Andino APRN, HAND INSERTER OPERATOR #2 [place] [address] Discharge Disposition: Discharged to home or Selfcare 06/02/2024 10:00 AM UNIT SUPPORT REPRESENTATIVE Office Visit [facility] #2 [place] [address] Kelin Castle PAC #2 [place] [address] documented as of this encounter Visit Diagnoses Diagnosis Umbilical hernia without obstruction and without gangrene- Primary Other acute appendicitis documented in this encounter Care Teams Special Education Inclusion Teacher Relationship Specialty Start Date End Date Ousmane Gan MD #[address] [address] PCP - General Family Medicine 10/24/20 04/08/21 Paco Reagan APRN, HAND INSERTER OPERATOR #[address] [address] Nurse Practitioner Advanced Practice Nurse 10/24/20 documented as of this encounter
--- OUTSIDE RECORDS SUMMARY | 2024-04-17 13:53 | XMS_ITS | Encounter Summary ---
Author Organization [facility] Address [address] [place] [address] Phone Care Team Providers Care Information Services Tech Name Role Phone Ousmane Gan MD Primary Care Provider [phone] Paco Reagan APRN, PARTS CONTROL CLERK Unavailable Reason for Visit * Reason Comments Surgical Follow-up Encounter Details Date Type Department Care Team (Late st Contact Info) Description 03/07/2021 1:15 PM BOX TOE BUFFER Office Visit [facility] - General Surgery - [place] #[address] [address] Rm Butler MD #[address] [address] S/P laparoscopic appendectomy (Primary Dx) Discharge Disposition: Discharged to home [...] PM CDT Legal Sex Female 2:47 AM BOX TOE BUFFER Gender Identity Female 11/25/2022 4:06 PM CDT Sexual Orientation Not on file 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 No / Unsure 03/07/2021 1:11 PM BOX TOE BUFFER documented as of this encounter Last Filed Vital Signs Vital Sign Reading Time Taken Comments Blood Pressure 126/78 03/07/2021 1:13 PM BOX TOE BUFFER Pulse 99 03/07/2021 1:13 PM BOX TOE BUFFER Temperature 36.6 ??C (97.8 ??F) 03/07/2021 1:13 PM CS T Respiratory Rate 18 03/07/2021 1:13 PM BOX TOE BUFFER Oxygen Saturation 98% 03/07/2021 1:13 PM BOX TOE BUFFER Inhaled Oxygen Concentration - - Weight 101.6 kg (224 lb) 03/07/2021 1:13 PM BOX TOE BUFFER Height 152.4 cm (5') 03/07/2021 1:13 PM BOX TOE BUFFER Body Mass Index 43.75 03/07/2021 1:13 PM BOX TOE BUFFER documented in this encounter Patient Instructions * Patient Instructions* Rm Butler MD - 03/07/2021 1:15 PM BOX TOE BUFFER Avoid any major heavy lifting, nothing heavier than 10 lb for 6 weeks after surgery Final pathology showed early acute appendicitis Follow-up as needed TOE BUFFER documented in this encounter Progress Notes * Rm Butler MD - 03/07/2021 1:15 PM CST Esther Day POSTOPERATIVE EVALUATION DOS: 03/07/2021 SUBJECTIVE Patient is seen in the office today S/P Laparoscopic appendectomy and Laparoscopic umbilical herniarepair with no mesh. She is progressing well without complaints. Pain decreasing. Denies constipation, diarrhea, or food intolerances. OBJECTIVE BP 126/78 Pulse 99 Temp 97.8 ??F (36.6 ??C) Resp 18 Ht 5' (1.524 m) Wt 224 lb (101.6 kg) LMP 02/27/2021 SpO2 98% BMI 43.75 kg/m?? Exam: Alert, no acute distress Incision(s): Healing well w/o erythema, induration or drainage. ASSESSMENT: S/p Laparoscopic appendectomy Laparoscopic umbilical hernia repair with no mesh done on02/21/2021 for acute appendicitis and chronically incarcerated umbilical hernia PLAN Pathology: Discussed results and implications. Activity: Avoid any major heavy lifting, nothing heavier than 10 lb for 6 weeks after surgery Follow-up: As needed. School/work release: Not needed. I encouraged the patient to contact the office for any questions or problems. Patient verbalized understanding. Documentation for this visit was completed using a template. I have seen and examined the patient. Everything documented was personally performed at this visit with the necessary additions, deletionsand changes made as appropriate. By: Rm Butler MD, 03/07/2021, 1:24 PM BOX TOE BUFFER TOE BUFFER documented in this encounter Plan of Treatment Upcoming Encounters Date Type Department Care Team (Late st Contact Info) Description 04/28/2024 10:00 AM BOX TOE BUFFER [facility] Stress 1 [place] [address] Karen Andino APRN, PARTS CONTROL CLERK #2 [place] [address] Discharge Disposition: Discharged to home or Selfcare 06/02/2024 10:00 AM BOX TOE BUFFER Office Visit [facility] #2 [place] [address] Kelin Castle, PAC #2 [place] [address] documented as of this encounter Visit Diagnoses Diagnosis S/P laparoscopic appendectomy- Primary Other postprocedural status documented in this encounter Care Teams Information Services Tech Relationship Specialty Start Date End Date Ousmane Gan MD #[address] [address] PCP - General Family Medicine 10/24/20 04/08/21 Paco Reagan APRN, PARTS CONTROL CLERK #[address] [address] Nurse Practitioner Advanced Practice Nurse 10/24/20 documented as of this encounter
--- OUTSIDE RECORDS SUMMARY | 2024-04-17 13:53 | XMS_ITS | Encounter Summary ---
Author Organization [facility] Address [address] [place] [address] Phone Care Team Providers Care Interstate Bus Driver Name Role Phone Ousmane Gan MD Primary Care Provider [phone] Paco Reagan APRN, BARREL RIFLER BUTTON Unavailable Encounter Details Date Type Department Care Team (Late st Contact Info) Description 02/22/2021 Telephone [facility] #2 [place] [address] uOsmane Gan MD #[address] [address] Social History Tobacco Use Types Packs/Day Years [...] PM CDT Legal Sex Female 2:47 AM MACHINE SETTER Gender Identity Female 11/25/2022 4:06 PM CDT Sexual Orientation Not on file 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 No / Unsure 02/21/2021 9:48 AM MACHINE SETTER documented as of this encounter Miscellaneous Notes * Telephone Encounter - Ousmane aGn MD - 02/22/2021 2:33 PM MACHINE SETTER DONE. INE SETTER documented in this encounter Plan of Treatment Upcoming Encounters Date Type Department Care Team (Late st Contact Info) Description 04/28/2024 10:00 AM MACHINE SETTER Appointment [facility] Cardiology Stress [address] [place] [address] Karen Andino APRN, BARREL RIFLER BUTTON #2 [place] [address] Discharge Disposition: Discharged to home or Selfcare 06/02/2024 10:00 AM MACHINE SETTER Office Visit [facility] - Family Medicine - [place] #2 [place] [address] Kelin Castle, SARABJIT #2 [place] [address] documented as of this encounter Visit Diagnoses Not on filedocumented in this encounter Care Teams Interstate Bus Driver Relationship Specialty Start Date End Date Ousmane Gan MD #[address] [address] PCP - General Family Medicine 10/24/20 04/08/21 Paco Reagan APRN, BARREL RIFLER BUTTON #[address] [address] Nurse Practitioner Advanced Practice Nurse 10/24/20 documented as of this encounter
--- OUTSIDE RECORDS SUMMARY | 2024-04-17 13:54 | XMS_ITS | Encounter Summary ---
Author Organization [employer] Care Team Providers Care Lead Instructor/Flight Attendant Name Role Phone Ousmane Gan MD Primary Care Provider [phone] Paco Reagan APRN, SHIPSMITH Unavailable Encounter Details Date Type Department Care Team (Latest Contact Info) Description 11/03/2020 Travel Social History Tobacco Use Types Packs/Day Years Used Date Smoking Tobacco: Light Smoker Cigarettes Smokeless Tobacco: Never Comments:1-2 cigarettes a da y Alcohol Use Standard Drinks/Week Comments Yes 0 (1 standard drink = 0.6 oz pur e alcohol) Rare Sexually Active Control Partners Comments Yes Male Comments No Sex and Gender Information Value Date Recorded Sex Assigned at Female 11/25/2022 4:06 PM CDT Legal Sex Female 2:47 AM SCREED OPERATOR Gender Identity Female 11/25/2022 4:06 PM CDT Sexual Orientation Not on file 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 No / Unsure 11/03/2020 10:12 AM CDT documented as of this encounter Plan of Treatment Upcoming Encounters Date Type Department Care Team (Late st Contact Info) Description 04/28/2024 10:00 AM SCREED OPERATOR [facility]ment [facility] Stress [address] [place] [address] Karen Andino APRN, SHIPSMITH #2 [place] [address] Discharge Disposition: Discharged to home or Selfcare 06/02/2024 10:00 AM SCREED OPERATOR Office Visit [facility] #2 [place] [address] Kelin Castle, [facility] #2 [place] [address] documented as of this encounter Visit Diagnoses Not on filedocumented in this encounter Care Teams Lead Instructor/Flight Attendant Relationship Specialty Start Date End Date Ousmane Gna MD #[address] [address] PCP - General Family Medicine 10/24/20 04/08/21 Paco Reagan APRN, SHIPSMITH [address] [address] Nurse Practitioner Advanced Practice Nurse 10/24/20 documented as of this encounter
--- OUTSIDE RECORDS SUMMARY | 2024-04-17 13:54 | XMS_ITS | Encounter Summary ---
Author Organization [facility] Address [address] [place] [address] Phone Care Team Providers Care Web Design Intern Name Role Phone Ousmane Gan MD Primary Care Provider [phone] Paco Reagan APRN, [employer] ASSEMBLER Unavailable Encounter Details Date Type Department Care Team (Late st Contact Info) Description 11/24/2020 8:30 AM CDT Physical Therapy [facility] at [facility] [address] [facility], [facility] [address] [place] [address] Paco Reagan, RYAN, SMALL PRODUCTS II ASSEMBLER #2 [facility] [address] [place] [address] Frederick Tejada, PT [place] Chronic neck pain (Primary Dx) Discharge Disposition: Discharged to home [...] PM CDT Legal Sex Female 2:47 AM MANAGING MEMBER Gender Identity Female 11/25/2022 4:06 PM CDT [...] as of this encounter Miscellaneous Notes * Plan of Care - Frederick Tejada, PT - 11/24/2020 8:30 AM CDT Treatment Note - Electronically signed by: STEPHANIE HANSON, Student November 24, 2020 SUBJECTIVE: Patient reported feeling better. She has been doing her HEP stretches. Sleeping is going better. She can lie flat supine so the elbow that OT is seeing her for his improving in addition to her neck pain. THe rhomboids knots are not painful anymore. OBJECTIVE Observation: Objective Data: Patient also took OT here today for her elbow pain. Cervical: Range of Motion: All Range of Motion documentation below is measured in degrees unless otherwise indicated. Left Rotation: AROM 50 (No pain during motion ) Right Rotation: AROM: 51 (No pain during motion) TREATMENT: Learner: patient Readiness: acceptance Method: explanation Refer to PT OP Rehab Therapy Treatment flowsheet for details/minutes. Patient response to new home exercises provided today: patient did not report an increase in pain during thoracic rotation exercise. Patient improved performance of scapular retraction with verbal cueing for decreased upper trap activation. Interventions provided this session: therapeutic exercise, manual therapy and traction Therapist provided Education and Skilled therapy by identifying substitutions during exercises and correcting them. Patient educated on the use of pillows under her legs in supine to help decrease her low back pain during sleeping. Reviewed HEP with patient. All questions answered. Manual therapy: manual upper trap stretch, suboccipital release and cervical distraction. Patient reported no increase in symptoms. Mechanical traction: cervical traction in supine position 16# for 9 min.static ASSESSMENT: Other Details: Patient demonstrates progress towards goals as evidenced by: decreased pain at the end of session. Patient able to tolerate advancement of scapular retraction exercise without an increase in pain. Patient continues to demonstrate the following functional limitations: Pain looking up, pain when reading, pain sleeping on left side. All charges entered today are appropriate and separate from each other. PLAN Goals to be achieved in 8 visits: Patient will demonstrate the followin Decrease 24-hour average pain rating to 4/10 or less with functional activities to be able to read book/newspaper with less difficulty. MET 11/17/20 kb 2 Improve cervical spine range of motion so that tilting the head to the left does not increase pain. NOT MET 11/17/20 kb 3 Improve posture to provide improved mechanics in the cervical spine to utilize musculoskeletal system with improved efficiency. 4 Demonstrates independence in a home therapeutic exercise program specific to relative impairmentsin order to optimize rehabilitation. MET 11/17/20 kb 5 She will no longer have limitations in sleeping due to left sided neck pain. IMPROVED 11/17/20 kb 6. Improve score on the Neck Disability Index to 34% impairment or less to demonstrate overall improved function. Precautions: no dry needling due to risk of infections. . I have read and agree with student documentation by Stephanie HURST on this date. Review of documentation includes Note, Doc flow sheet and associated functions to support documentation. FREDERICK BRUCE, PT * Plan of Care - Frederick Tejada PT - 11/24/2020 8:30 AM CDT PT Discharge Summary 01/29/21 Patient attended 6 visits of PT for chronic neck pain under primary care provider Paco Reagan NP.Patient has not been here in over two months, as she cancelled several of her appointments recentlyfor various reasons. Patient was compliant and motivated when she came in. She took OT here for herelbow and PT for her neck, which were unrelated. Most goals were not checked since patient did not have a planned last visit of PT. Overall, she did seem to be improving through PT. She responded well to cspine traction especially. By: FREDERICK TEJADA PT; 01/29/2021, 11:49 AM CDT documented in this encounter Plan of Treatment Upcoming Encounters Date Type Department Care Team (Late st Contact Info) Description 04/28/2024 10:00 AM MANAGING MEMBER Appointment [facility] Cardiology Stress 1 [place] [address] Karen Andino, RYAN, [employer]ODU[employer] II ASSEMBLER [address]2 [place] [address] Discharge Disposition: Discharged to home or Selfcare 06/02/2024 10:00 AM MANAGING MEMBER [facility] - [place] [address] [place] [address] Kelin Castle, [employer] [address]2 [place] [address] documented as of this encounter Visit Diagnoses Diagnosis Chronic neck pain- Primary Cervicalgia documented in this encounter Care Teams Web Design Intern Relationship Specialty Start Date End Date Ousmane Gan MD #[address] [address] PCP - General Family Medicine 10/24/20 04/08/21 Paco Reagan APRN, [employer] II ASSEMBLER #[address] [address] Nurse Practitioner Advanced Practice Nurse 10/24/20 documented as of this encounter
--- OUTSIDE RECORDS SUMMARY | 2024-04-17 13:54 | XMS_ITS | Encounter Summary ---
Author Organization [facility] Address [address] [place] [address] Phone Care Team Providers Care Guest Services Officer Name Role Phone Ousmane Gan MD Primary Care Provider [phone] Paco Reagan APRN, COMMONWEALTH ATTORNEY Unavailable Encounter Details Date Type Department Care Team (Latest Contact Info) Description 11/08/2020 11:00 AM CDT Occupational Therapy [facility] Rehab at [facility] [address] [facility], [facility] [address] [place] [address] Paco Reagan, RYAN, COMMONWEALTH ATTORNEY #2 [facility] [address] [place] [address] Desi Jiang, OT [place] Right elbow pain (Primary Dx); Decreased strength Discharge Disposition: Discharged to home or Selfcare [...] PM CDT Legal Sex Female 2:47 AM TOP POLISHER Gender Identity Female 11/25/2022 4:06 PM CDT Sexual Orientation Not on file 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 No / Unsure 11/08/2020 11:02 AM CDT documented as of this encounter Miscellaneous Notes * Plan of Care - Desi Jiang OTRL - 11/08/2020 11:00 AM CDT Treatment Note - Electronically signed by: EMILIANO KINCAID November 08, 2020 SUBJECTIVE: Patient reports that the exercises are going ok. Patient reports that she still has some tendernesswhen completing Phase 2 - Exercise 3 and is not completing through full available wrist flexion. She states that she still has pain when sleeping. She reports that it is feeling a little bit better. Patient reports that she is wearing a sleeve at night when she sleeps. She reports that she tends to sleep with the RUE extended. Patient does report that she does get some discomfort at the medial epicondyle as well. OBJECTIVE: Observation: Objective Data: Pre pain: 06/21 (lateral epicondyle) Post-pain: 04/23 TREATMENT: Learner: patient Readiness: acceptance Method: explanation, demonstration and handout Refer to OT OP Rehab Therapy Treatment flowsheet for details/minutes. Home Exercises distributed via handout. Access Code: [email or web address] - Theraputty HEP Patient response to new home exercises provided today: patient tolerated exercises well Interventions provided this session: Ultrasound: Patient was educated on use of Ultrasound for tissue extensibility, pain reduction, and inflammation management. Patient reported good understanding of education with teach back. Therapist observed patient's skin and it was determined to be intact without open areas, rash, or discoloration. Settings were as follows (see flowsheets for details): Type: continuous mHz: 3.3 w/cm2: 0.8 Location: right lateral elbow Time: 10 minutes Therapist completed ultrasound to the abovementioned location in the following patterns with a warming ultrasound head: clockwise, counterclockwise, perpendicular, parallel. Patient's skin integrity following treatment: WFL. Lateral Epicondylitis Treatment Protocol Phase 2: Restoring Flexibility: Active Stretching Exercises - Patient was previously at Phase 2 - Exercise 3. Patient reports that currently she is not able to complete Exercise 3 through full wrist flexion, as she starts to experience discomfort at the lateral epicondyle. Patient will remain at Phase 2 - Exercise 3 until her next appointment. Active Stretching Exercises Perform the following active stretching exercises (on your own muscle power) 1- 2/times a day, 10 repetitions. Actively position the wrist in flexion to a count of 15 before resting and repeating the stretch. Do NOT progress to the next exercise until the exercise can be completed without pain. It is fine to feel stretching , but not pain. Exercise 1: With your elbow bent (to 90 degrees) and thumb positioned up (elbow neutral), bend your wrist toward your body. Exercise 2: With your elbow bent (to 90 degrees) and palm down towards floor (elbow pronation), bend your wristtoward the floor. Exercise 3: With your elbow straight (extended) and thumb positioned up (elbow neutral), bend your wrist towardyour body. Patient is demonstrating good teach-back of education. Patient is currently at Exercise 3 and was further educated on not progressing until pain-free at the current stage. Patient verbalized good understanding. Possible advancement if pain-free, during next session: Exercise 4: With your elbow straight (extended) and palm down towards floor (elbow pronation), bend your wrist toward the floor. Theraputty: Patient participated in theraputty HEP this date. Therapist provided handout of HEPs and yellow theraputty. Patient completed 5 reps x 1 set of each exercise with the RUE this date. Patient demonstrated good teach-back of exercises. Exercises Putty Squeezes - 1 x daily - 5 x weekly - 10 reps - 2 sets Tip Pinch with Putty - 1 x daily - 5 x weekly - 10 reps - 2 sets Finger Lumbricals with Putty - 1 x daily - 5 x weekly - 10 reps - 2 sets 3-Point Pinch with Putty - 1 x daily - 5 x weekly - 10 reps - 2 sets Finger [employer] Musician with Putty - 1 x daily - 5 x weekly - 10 reps - 2 sets Finger Abduction with Putty - 1 x daily - 5 x weekly - 10 reps - 2 sets Finger Adduction with Putty - 1 x daily - 5 x weekly - 10 reps - 2 sets Finger Pinch and Pull with Putty - 1 x daily - 5 x weekly - 10 reps - 2 sets Rolling Putty on Table - 1 x daily - 5 x weekly - 10 reps - 2 sets Seated Claw Fist with Putty - 1 x daily - 5 x weekly - 10 reps - 2 sets Thumb Radial Abduction with Putty Loop - 1 x daily - 5 x weekly - 10 reps - 2 sets Therapist provided skilled therapy by educating the patient on maintaining current Phase and Exercise stage 3 until she is pain free through full ROM. In addition, patient was educated on theraputty HEP and provided with handout. Therapist and patient did discuss possible need for a night splint ifshe continues to experience night pain that both wakes her in the night and causes pain in the morning which impacts her daily activities. Patient verbalized understanding. ASSESSMENT: Other Details: Patient demonstrates progress as evidenced by good teach-back of HEP at this time. Patient would benefit from continued skilled interventions, as stated in the plan of care, due to the following functional limitations: Washing her hair, reaching overhead to put things in cabinets, opening jars, opening doors, cleaning, sweeping, getting dressed, and peeling/cutting food.?? All charges entered today are appropriate and separate from each other. PLAN Goals to be achieved in 8 visits Patient will demonstrate the following: - Demonstrate independence in home exercise program for tennis elbow and demonstrate understanding and be independent in its performance. (ISSUED massage on 10/31/20 PARAM) - Demonstrate independence in home exercise program for theraputty and demonstrate understanding and be independent in its performance. (issued 11/08/20 MKK) - Patient will increase right dev manager strength (standard testing position) to 50 lbs to improve opening jars. - Patient will improve 9 Hole PEG test to be less than 20 seconds in R hand to improve buttoning skills. - Patient will increase right upper extremity coordination to perform 2 point & 3 point lateralpinches measuring 15 pounds each to enable patient to groom her hair. - Patient will report a score of 45 or greater on the UEFI to demonstrate improvement in daily activities. - Patient will report pain as a 4/10 or less with functional activities. Planned Interventions This patient will likely be seen 2x/week for 8 visits for the following interventions: Therapeutic Exercise (25644) - ROM and strengthening Neuromuscular re-education (10130) Self care/home management training (58884) Therapeutic activity (40111) Instruction in home exercise program Manual therapy (51860) to address muscle tightness and tone Precautions: none Future treatment sessions to include ultrasound, tennis elbow protocol, theraputty, and bracing options. Treatment may be altered based on patient progression and symptoms. The plan of care, as well as the benefits and risks of therapy were reviewed with the patient and the patient consented to treatment. Thank you for the opportunity to work with this individual. . documented in this encounter Plan of Treatment Upcoming Encounters Date Type Department Care Team (Late st Contact Info) Description 04/28/2024 10:00 AM TOP POLISHER Appointment [facility]iology Stress 1 [place] [address] Karen Andino APRN, COMMONWEALTH ATTORNEY #2 [place] [address] Discharge Disposition: Discharged to home or Selfcare 06/02/2024 10:00 AM TOP POLISHER Office Visit [facility] - [place] #2 [place] [address] Kelin Castle PAC #2 [place] [address] documented as of this encounter Visit Diagnoses Diagnosis Right elbow pain- Primary Pain in joint, upper arm Decreased strength Muscle weakness (generalized) documented in this encounter Care Teams Guest Services Officer Relationship Specialty Start Date End Date Ousmane Gan MD #[address] [address] PCP - General Family Medicine 10/24/20 04/08/21 Paco Reagan APRN, COMMONWEALTH ATTORNEY #[address] [address] Nurse Practitioner Advanced Practice Nurse 10/24/20 documented as of this encounter
--- OUTSIDE RECORDS SUMMARY | 2024-04-17 13:54 | XMS_ITS | Encounter Summary ---
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 No / Unsure 11/27/2020 8:38 AM CDT documented as of this encounter Plan of Treatment Upcoming Encounters Date Type Department Care Team (Late st Contact Info) Description 04/28/2024 10:00 AM SUPERVISOR FEED HOUSE [facility] Stress 1 [place] [address] Karen Andino APRN, [employer] #2 [place] [address] Discharge Disposition: Discharged to home or Selfcare 06/02/2024 10:00 AM SUPERVISOR FEED HOUSE Office Visit [facility] #2 [place] [address] Kelin Castle, [facility] #2 [place] [address] documented as of this encounter Visit Diagnoses Not on filedocumented in this encounter Care Teams Infection Control Coordinator Relationship Specialty Start Date End Date Ousmane Gan MD #[address] [address] PCP - General Family Medicine 10/24/20 04/08/21 Paco Reagan APRN, [employer] #[address] [address] Nurse Practitioner Advanced Practice Nurse 10/24/20 documented as of this encounter
--- OUTSIDE RECORDS SUMMARY | 2024-04-17 13:54 | XMS_ITS | Encounter Summary ---
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 No / Unsure 11/17/2020 9:51 AM CDT documented as of this encounter Plan of Treatment Upcoming Encounters Date Type Department Care Team (Late st Contact Info) Description 04/28/2024 10:00 AM RED LEADER [facility]ment [facility] Stress [address] [place] [address] Karen Andino APRN, DIRECTOR OF PHYSICIAN PRACTICES #2 [place] [address] Discharge Disposition: Discharged to home or Selfcare 06/02/2024 10:00 AM RED LEADER Office Visit [facility] #2 [place] [address] Kelin Castle, [facility] #2 [place] [address] documented as of this encounter Visit Diagnoses Not on filedocumented in this encounter Care Teams Personal Injury Law Specialist Relationship Specialty Start Date End Date Ousmane Gan MD #[address] [address] PCP - General Family Medicine 10/24/20 04/08/21 Paco Reagan APRN, DIRECTOR OF PHYSICIAN PRACTICES #[address] [address] Nurse Practitioner Advanced Practice Nurse 10/24/20 documented as of this encounter
--- OUTSIDE RECORDS SUMMARY | 2024-04-17 13:54 | XMS_ITS | Encounter Summary ---
Author Organization [facility] 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 No / Unsure 11/24/2020 8:29 AM CDT documented as of this encounter Plan of Treatment Upcoming Encounters Date Type Department Care Team (Late st Contact Info) Description 04/28/2024 10:00 AM ASSISTANT CREDIT MANAGER [facility] Stress [address] [place] [address] Karen Andino APRN, AIRPORT SHUTTLE DRIVER #2 [place] [address] Discharge Disposition: Discharged to home or Selfcare 06/02/2024 10:00 AM ASSISTANT CREDIT MANAGER Office Visit [facility] #2 [place] [address] Kelin Castle, [facility] #2 [place] [address] documented as of this encounter Visit Diagnoses Not on filedocumented in this encounter Care Teams [employer] Relationship Specialty Start Date End Date Ousmane Gan MD #[address] [address] PCP - General Family Medicine 10/24/20 04/08/21 Paco Reagan APRN, AIRPORT SHUTTLE DRIVER #[address] [address] Nurse Practitioner Advanced Practice Nurse 10/24/20 documented as of this encounter
--- OUTSIDE RECORDS SUMMARY | 2024-04-17 13:54 | XMS_ITS | Encounter Summary ---
Author Organization [facility] [employer] Care Team Providers Care Satellite Television Installer Name Role Phone Ousmane Gan MD Primary Care Provider [phone] Paco Reagan APRN, LOGISTICS ENGINEER Unavailable Encounter Details Date Type Department Care Team (Latest Contact Info) Description 11/08/2020 Travel Social History Tobacco Use Types Packs/Day [...] PM CDT Legal Sex Female 2:47 AM VISCOSE DEPARTMENT WORKER Gender Identity Female 11/25/2022 4:06 PM [...] st Contact Info) Description 04/28/2024 10:00 AM VISCOSE DEPARTMENT WORKER [facility]ment [facility] Stress [address] [place] [address] Karen Andino APRN, LOGISTICS ENGINEER #2 [place] [address] Discharge Disposition: Discharged to home or Selfcare 06/02/2024 10:00 AM VISCOSE DEPARTMENT WORKER Office Visit [facility] #2 [place] [address] Kelin Castle, [facility] #2 [place] [address] documented as of this encounter Visit Diagnoses Not on filedocumented in this encounter Care Teams Satellite Television Installer Relationship Specialty Start Date End Date Ousmane Gan MD #[address] [address] PCP - General Family Medicine 10/24/20 04/08/21 Paco Reagan APRN, LOGISTICS ENGINEER #[address] [address] Nurse Practitioner Advanced Practice Nurse 10/24/20 documented as of this encounter
--- OUTSIDE RECORDS SUMMARY | 2024-04-17 13:54 | XMS_ITS | Encounter Summary ---
Author Organization [facility] Address [address] [place] [address] Phone Care Team Providers Care Substation Mechanic Name Role Phone Ousmane Gan MD Primary Care Provider [phone] Paco Reagan APRN, COOK VACUUM KETTLE Unavailable Encounter Details Date Type Department Care Team (Latest Contact Info) Description 11/17/2020 11:00 AM CDT Occupational Therapy [facility] at [facility] [address] [facility], [facility] [address] [place] [address] Paco Reagan, RYAN, COOK VACUUM KETTLE #2 [facility] [address] [place] [address] Desi Jiang, OT [place] Right elbow pain [...] PM CDT Legal Sex Female 2:47 AM AS400 ADMINISTRATOR Gender Identity Female 11/25/2022 4:06 PM CDT [...] of Care - Desi Jiang OTRL - 11/17/2020 11:00 AM CDT Treatment Note - Electronically signed by: EMILIANO KINCAID November 17, 2020 SUBJECTIVE: Patient reports that her exercises are going well. She states that she isn't really experiencing any pain in the arm when completing the exercises. OBJECTIVE: Observation: Objective Data: Pre pain: 0/10 Post-pain: 0/10 TREATMENT: Learner: patient Readiness: acceptance Method: explanation, demonstration and handout Refer to OT OP Rehab Therapy Treatment flowsheet for details/minutes. Home Exercises distributed via handout. Access Code: [email or web address] - Theraputty HEP Patient response to new [...] feel stretching , but not pain. Exercise 4: With your elbow straight (extended) and palm down towards floor (elbow pronation), bend your wrist toward the floor. Patient reports that she is no longer experiencing pain in the RUE following exercises and even at rest. She reports that she only has pain when laying on her RUE. Patient will be advanced to Phase 3- passive stretching exercises this date. She was educated on continuing to complete Phase 2 - Exercise 4 prior to starting Phase 3 exercises. Patient verbalized understanding. Patient was provided with handout for the exercises. Patient was also educated on grading exercises as needed with downgrading exercises if she starts to experience additional pain. Phase 3 - Passive Stretching Exercises & Strengthening Active Stretching It is important to continue doing this 4th active stretching exercise prior to beginning the passive stretching exercises. The position for the 4th active stretching exercise consists of: the elbow straight (extended), hand palm down (elbow pronation) with the wrist bent forward/flexed (5 repetitions-count of 15). Passive Stretching Perform the following passive stretching exercises 1-2 times a day, 10 repetitions, to a count of 10. Do NOT progress to the next exercise unless the exercise you are performing is pain-free. You should feel a stretch, but not pain. (see media for images) Exercise 1: With your elbow bent (to 90 degrees) and thumb positioned up (elbow neutral), bend your wrist toward your body with your opposite hand. Exercise 2: With your elbow bent (to 90 degrees) and palm facing down towards the floor (elbow pronation), bendyour wrist down toward the floor with your opposite hand. Exercise 3: With your elbow straight (extended) and thumb positioned up (elbow neutral), bend your wrist towardyour body with your opposite hand. Patient was educated on the above information, provided a handout (see media), and demonstrated fair teach-back of education. Patient is currently at Exercise 3 and was further educated on not progressing until pain-free at the current stage. Patient verbalized good understanding; however, she is noted to have difficulty with supporting the RUE during exercises without use of the table. Patient is getting in appropriate position; however, she is not able to maintain position against gravity. To be completed during next visit if she is pain-free at Phase 3 - Exercise 3. Exercise 4: With your elbow straight (extended) and palm facing down towards the floor (elbow pronation), bend your wrist down towards the floor with your opposite hand. Soft-tissue mobilization: Goal is to assist in breaking up scar tissue, decrease fascial restrictions, and desensitize tissues. By completing IASTM, it will assist in restoring motion, decrease pain,and speed up the rehabilitation process. First, deep skin prep is added to help reduce friction and increase glide with the instrument. Completing both proximal and distal to the lateral epicondyle, use long, sweeping strokes for ~30 seconds-1 minute in each directions: elbow joint to the forearm (anterior & posterior forearm) using a 30-60 degree angle to the surface with the tool. If you feel areas of scar tissue, tightness, or tension, you can focus on those areas of adhesions ~30 seconds individually, maintaining your border hand in position, in focused sweep strokes. Complete this both proximal and distal to the epicondyle, as well as through the mid-forearm, biceps, and triceps. Areas of redness when completing were avoided to maintain skin integrity. The patient demonstrated no areas of redness following completion. Therapist provided skilled therapy by educating the patient on continuing to complete Phase 2 - Exercise 4, followed by Phase 3 - Exercises 1-3 currently. Patient verbalized understanding. ASSESSMENT: Other Details: Patient demonstrates progress as evidenced by increased tolerance of HEP without pain reported or limited pain overall. Patient was progressed to Phase 3 exercises this date. Patient would benefit from continued skilled interventions, [...] 11/08/20 MKK) - Patient will increase right pharmacy cashier strength (standard testing position) to 50 lbs [...] a 4/10 or less with functional activities. (progressing 11/15/20) Planned Interventions This patient will likely be seen 2x/week for 8 visits for the following interventions: Therapeutic Exercise (04625) - ROM and strengthening Neuromuscular re-education (95513) Self care/home management training (99419) Therapeutic activity (96726) Instruction in home exercise program Manual therapy (08830) to address muscle tightness and tone Precautions: [...] st Contact Info) Description 04/28/2024 10:00 AM AS400 ADMINISTRATOR [facility]ointment [facility] Cardiology Stress [address] [place] [address] Karen Andino APRN, COOK VACUUM KETTLE [address] [place] [address] Discharge Disposition: Discharged to home or Selfcare 06/02/2024 10:00 AM AS400 ADMINISTRATOR [facility] #2 [place] [address] Kelin Castle, PAC #2 [place] [address] documented as of this encounter Visit Diagnoses Diagnosis Right elbow pain- Primary Pain in joint, upper arm Decreased strength Muscle weakness (generalized) documented in this encounter Care Teams Substation Mechanic Relationship Specialty Start Date End Date Ousmane Gan MD #[address] [address] PCP - General Family Medicine 10/24/20 04/08/21 Paco Reagan APRN, COOK VACUUM KETTLE #[address] [address] Nurse Practitioner Advanced Practice Nurse 10/24/20 documented as of this encounter
--- OUTSIDE RECORDS SUMMARY | 2024-04-17 13:54 | XMS_ITS | Encounter Summary ---
Author Organization [facility] Address [address] [place] [address] Phone Care Team Providers Care Ug Designer Name Role Phone Ousmane Gan MD Primary Care Provider [phone] Paco Reagan APRN, RPG PROGRAMMER ANALYST Unavailable Encounter Details Date Type Department Care Team (Latest Contact Info) Description 11/27/2020 8:45 AM CDT Occupational Therapy [facility] [address] [facility], [facility] H1 [place] [address] Paco Reagan APRN, RPG PROGRAMMER ANALYST #2 [facility] [address] [place] [address] Deb Parikh OT [place] Discharge Disposition: Discharged to home or Selfcare [...] PM CDT Legal Sex Female 2:47 AM MILLING OPERATOR Gender Identity Female 11/25/2022 4:06 PM [...] Miscellaneous Notes * Plan of Care - Deb Parikh OTRL - 11/27/2020 8:45 AM CDT Treatment Note - Electronically signed by: THEA GARCIA, Student November 26, 2020 SUBJECTIVE: Patient states her arm has been doing well overall, but it has been in pain the past few days from cleaning/ lifting. OBJECTIVE Observation: Objective Data: Initial Pain: 07/22 Post-treatment Pain: 05/24 TREATMENT: Learner: patient Readiness: acceptance Method: explanation, demonstration and handout Refer to OT OP Rehab Therapy Treatment flowsheet for details/minutes. Home Exercises distributed via handout. Access Code: [email or web address] - Theraputty HEP Patient response to new [...] treatment: WFL. Lateral Epicondylitis Treatment Protocol Phase 3 - Passive Stretching Exercises & Strengthening Patient completed 10 reps with 1# and 15 second hold of the following exercises: Exercise 1: With your elbow bent (to [...] wrist towardyour body with your opposite hand. Exercise 4: With your elbow straight (extended) and palm facing down towards the floor (elbow pronation), bend your wrist down towards the floor with your opposite hand. Patient was educated on the above information, provided a handout (see media), and demonstrated good teach-back of education. Patient is currently at Exercise 4 and was further educated on not progressing until pain-free at the current stage. Patient verbalized good understanding. Coordination Paddles: Patient was given the marble coordination paddle and the maze coordination paddle and completed each x2 minutes. Patient was instructed to keep her arm/ elbow stationary and usethe wrist to complete each. Goal of activity is to improve UE coordination for grooming her hair. Soft-tissue mobilization: Goal is to assist in [...] provided skilled therapy by educating the patient in the purpose of activities completed this date. ASSESSMENT: Other Details: Patient demonstrates progress as evidenced by increased tolerance of HEP with added weight with limited pain overall. Patient would benefit from continued skilled interventions, as stated in the plan of care, due to the following functional limitations: Washing her hair, reaching overhead to put things in cabinets, opening jars, opening doors, cleaning, sweeping, getting dressed, and peeling/cutting food. All charges entered today are appropriate and [...] 11/08/20 MKK) - Patient will increase right wetlands technician strength (standard testing position) to 50 lbs to improve opening jars. MET 11/22/20 PARAM - Patient will improve 9 Hole PEG test to be less than 20 seconds in R hand to improve buttoning skills. - Patient will increase right upper extremity coordination to perform 2 point & 3 point lateralpinches measuring 15 pounds each to enable patient to groom her hair. PROGRESSING 11/27/20 CTJ/ PARAM - Patient will report a score of 45 or greater on the UEFI to demonstrate improvement in daily activities. - Patient will report pain as a 4/10 or less with functional activities. (progressing 11/27/20 CTJ/ PARAM) Planned Interventions This patient will likely be seen 2x/week for 8 visits for the following interventions: Therapeutic Exercise (84270) - ROM and strengthening Neuromuscular re-education (33231) Self care/home management training (64988) Therapeutic activity (80552) Instruction in home exercise program Manual therapy (24447) to address muscle tightness and tone Precautions: [...] opportunity to work with this individual. . I have read and agree with student documentation by Thea Garcia on this date. Review of documentation includes Note, Doc flow sheet and associated functions to support documentation. EMILIANO GARCIA documented in this encounter Plan of Treatment Upcoming Encounters Date Type Department Care Team (Late st Contact Info) Description 04/28/2024 10:00 AM MILLING OPERATOR Appointment [facility] Cardiology Stress 1 [place] [address] Karen Andino APRN, RPG PROGRAMMER ANALYST #2 [place] [address] Discharge Disposition: Discharged to home or Selfcare 06/02/2024 10:00 AM MILLING OPERATOR Office Visit [facility] - [place] #2 [place] [address] Kelin Castle, SARABJIT #2 [place] [address] documented as of this encounter Visit Diagnoses Not on filedocumented in this encounter Care Teams Ug Designer Relationship Specialty Start Date End Date Ousmane Gan MD #[address] [address] PCP - General Family Medicine 10/24/20 04/08/21 Paco Reagan APRN, RPG PROGRAMMER ANALYST #[address] [address] Nurse Practitioner Advanced Practice Nurse 10/24/20 documented as of this encounter
--- OUTSIDE RECORDS SUMMARY | 2024-04-17 13:54 | XMS_ITS | Encounter Summary ---
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 No / Unsure 11/15/2020 7:40 AM CDT documented as of this encounter Plan of Treatment Upcoming Encounters Date Type Department Care Team (Late st Contact Info) Description 04/28/2024 10:00 AM BEHAVIORAL THERAPY COORDINATOR [facility] Stress 1 [place] [address] Karen Andino APRN, TONGUE AND GROOVE MACHINE SETTER #2 [place] [address] Discharge Disposition: Discharged to home or Selfcare 06/02/2024 10:00 AM BEHAVIORAL THERAPY COORDINATOR Office Visit [facility] #2 [place] [address] Kelin Castle, [facility] #2 [place] [address] documented as of this encounter Visit Diagnoses Not on filedocumented in this encounter Care Teams Cabinetmaker Apprentice Relationship Specialty Start Date End Date Ousmane Gan MD #[address] [address] PCP - General Family Medicine 10/24/20 04/08/21 Paco Reagan APRN, TONGUE AND GROOVE MACHINE SETTER #[address] [address] Nurse Practitioner Advanced Practice Nurse 10/24/20 documented as of this encounter
--- OUTSIDE RECORDS SUMMARY | 2024-04-17 13:54 | XMS_ITS | Encounter Summary ---
Author Organization [facility] Address [address] [place] [address] Phone Care Team Providers Care Rail Car Welder Name Role Phone Ousmane Gan MD Primary Care Provider Paco Reagan APRN, REMELT SUGAR BOILER Unavailable Encounter Details Date Type Department Care Team (Late st Contact Info) Description 11/03/2020 10:15 AM CDT Physical Therapy [facility] Rehab at [facility] [address] [facility], [facility] H1 [place] [address] Paco Reagan, RYAN, REMELT SUGAR BOILER #2 [facility] [address] [place] [address] Frederick Tejada, PT [place] Strain of neck muscle, initial encounter (Primary Dx); Chronic neck pain Discharge Disposition: Discharged to home or [...] PM CDT Legal Sex Female 2:47 AM METAL TILE LATHER Gender Identity Female 11/25/2022 4:06 PM CDT [...] of Care - Frederick Tejada, PT - 11/03/2020 10:15 AM CDT Treatment Note - Electronically signed by: FREDERICK TEJADA, PT November 03, 2020 SUBJECTIVE: There have not been any medication changesDid not get much sleep last night. Pain lying on right arm due to the elbow. Lying on left side hurts the neck. After mechanical neck traction after the eval last visit, she had some neck soreness. She said it was a good thing. Back has been adjusting since but that feels better. Pain is down to a 1 or 2 on a 10. Wants to increase traction for her neck a little bit more. OBJECTIVE Observation: Objective Data: PT first and then OT for right elbow pain today TREATMENT: Refer to PT OP Rehab Therapy Treatment flowsheet for details/minutes. Manual therapy: Soft tissue work to rhomboids, upper trapezius, and neck in supine. Suboccipital release and massage. Upper trapezius B stretching. Traction: Settings were for 13 pounds statically, then I increased to 16 pounds. This was set for 8minutes. Educated her in contraindications and purposes, as well as what to expect. Pillow under right arm due to elbow pain supine. HEP given on paper on [employer] program: Access Code: [email or web address] URL: [email or web address] Date: 11/03/2020 Prepared by: [facility] Exercises Supine Chin Tuck - 1 x daily - 7 x weekly - 1 sets - 10 reps Seated Scapular Retraction - 1 x daily - 7 x weekly - 1 sets - 10 reps Supine Chest Stretch on Foam Roll - 1 x daily - 7 x weekly - 1 sets - 1 reps - 3 minute hold Thoracic Stretch on Foam Roll - Hands Clasped - 1 x daily - 7 x weekly - 1 sets - 1 reps - 1 minutehold Seated Gentle Upper Trapezius Stretch - 1 x daily - 7 x weekly - 1 sets - 3 reps - 20 second hold She asked about a TENS unit and she is going to borrow her mother's. Educated patient in using foam roll for pec stretching and importance of working on her posture. Educated her how to use foam roll for suboccipital release for headaches. Educated her how to do this also with two tennis balls in a sock. ASSESSMENT: Other Details: Patient demonstrates progress as evidenced by having a good first session of PT. Themanual therapy went well and she has restrictions in upper trapezius especially..?? She did well with the home exercises today and she has a foam roll already. I increased the traction on her neck just slightly. She had reduced neck pain by 2 points on a VAS and said her neck felt a lot better whe n leaving. Patient would benefit from continued skilled interventions, as stated in the plan of care, due to the following functional limitations: Pain looking up, turning to the left when driving, pain when reading, pain sleeping on left side. All charges entered today are appropriate and separate from each other. PLAN Goals to be achieved in 8 visits: Patient will demonstrate the followin Decrease 24-hour average pain rating to 4/10 or less with functional activities to be able to read book/newspaper with less difficulty. 2 Improve cervical spine range of motion so that tilting the head to the left does not increase pain 3 Improve posture to provide improved mechanics in the cervical spine to utilize musculoskeletal system with improved efficiency. 4 Demonstrates independence in a home therapeutic exercise program specific to relative impairmentsin order to optimize rehabilitation. 5 She will no longer have limitations in sleeping due to left sided neck pain. 6. Improve score on the Neck Disability Index to 34% impairment or less to demonstrate overall improved function. Precautions: no dry needling due to risk of infections. Future treatment sessions may include tspine mobilizations and IASTM left rhomboids . documented in this encounter Plan of Treatment Upcoming Encounters Date Type Department Care Team (Late st Contact Info) Description 04/28/2024 10:00 AM METAL TILE LATHER Appointment [facility] Cardiology Stress 1 [place] [address] Karen Andino, RYAN, REMELT SUGAR BOILER #2 [place] [address] Discharge Disposition: Discharged to home or Selfcare 06/02/2024 10:00 AM METAL TILE LATHER Office Visit [facility] #2 [place] [address] Kelin Castle, SARABJIT #2 [place] [address] documented as of this encounter Visit Diagnoses Diagnosis Strain of neck muscle, initial encounter- Primary Chronic neck pain Cervicalgia documented in this encounter Care Teams Rail Car Welder Relationship Specialty Start Date End Date Ousmane Gan MD #[address] [address] PCP - General Family Medicine 10/24/20 04/08/21 Paco Reagan, RYAN, REMELT SUGAR BOILER #[address] [address] Nurse Practitioner Advanced Practice Nurse 10/24/20 documented as of this encounter
--- OUTSIDE RECORDS SUMMARY | 2024-04-17 13:54 | XMS_ITS | Encounter Summary ---
Author Organization [facility] Address [address] [place] [place] [address] Phone Care Team Providers Care Glue Spreader Name Role Phone Ousmane Gan MD Primary Care Provider +1- [phone] Paco Reagan APRN, WAREHOUSE MAN Unavailable Encounter Details Date Type Department Care Team (Latest Contact Info) Description 11/22/2020 10:30 AM CDT Occupational Therapy [facility] at [facility] [address] [facility], [facility] [address] [place] [address] Paco Reagan APRN, WAREHOUSE MAN #2 [facility] [address] [place] [address] Deb Parikh OT [place] Discharge Disposition: Discharged to home or Selfcare [...] PM CDT Legal Sex Female 2:47 AM ROUGH ROUNDER MACHINE Gender Identity Female 11/25/2022 4:06 PM CDT Sexual Orientation Not on file 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 No / Unsure 11/22/2020 9:50 AM CDT documented as of this encounter Miscellaneous Notes * Plan of Care - JackelinehowardEduardoDebEMILIANO vences - 11/22/2020 10:30 AM CDT Treatment Note - Electronically signed by: EMILIANO GARCIA November 22, 2020 SUBJECTIVE: Patient reports that she has some soreness in the inner portion of her elbow. She reports that she typically tries to sleep with her arm straight out. OBJECTIVE: Upper Extremity: Strength: All strength measurements out of 5 unless otherwise indicated. Home Comfort Advisor/Pinch Strength: Grasp: Right: 65# Lateral Pinch: Right: 17# 3 Point Pinch: Right: 16# 2 Point Pinch: Right: 14#; TREATMENT: Learner: patient Readiness: acceptance Method: explanation, demonstration and handout Refer to OT OP Rehab Therapy Treatment flowsheet for details/minutes. Home Exercises distributed via handout. Access Code: [email or web address] - Theraputty HEP Patient response to new [...] Exercise 4 and was further educated on only progressing when she is pain-free. Patient verbalized good understanding; however, she is noted to have difficulty with supporting the RUE during exercises without use of the table. Patient is getting in appropriate position; however, she is not able to maintain position against gravity. Soft-tissue mobilization: Goal is to assist in [...] 4, followed by Phase 3 - Exercises 1-4 currently. Patient verbalized understanding. ASSESSMENT: Other Details: Patient demonstrates progress as evidenced by increased tolerance of HEP without pain reported or limited pain overall. Patient was progressed to Phase 4 exercises this date. Patient would benefit from [...] 11/08/20 MKK) - Patient will increase right convalescent sitter strength (standard testing position) to 50 lbs to improve opening jars. MET 11/22/20 PARAM - Patient will improve 9 Hole PEG test to be less than 20 seconds in R hand to improve buttoning skills. - Patient will increase right upper extremity coordination to perform 2 point & 3 point lateralpinches measuring 15 pounds each to enable patient to groom her hair. PROGRESSING 11/22/20 PARAM - Patient will report a score of 45 or greater on the UEFI to demonstrate improvement in daily activities. - Patient will report pain as a 4/10 or less with functional activities. (progressing 11/15/20 MKK) Planned Interventions This patient will likely be seen 2x/week for 8 visits for the following interventions: Therapeutic Exercise (64714) - ROM and strengthening Neuromuscular re-education (48795) Self care/home management training (77625) Therapeutic activity (26949) Instruction in home exercise program Manual therapy (80432) to address muscle tightness and tone Precautions: [...] st Contact Info) Description 04/28/2024 10:00 AM ROUGH ROUNDER MACHINE Appointment [facility] Cardiology Stress [address] [place] [address] Karen Andino APRN, WAREHOUSE MAN #2 [place] [address] Discharge Disposition: Discharged to home or Selfcare 06/02/2024 10:00 AM ROUGH ROUNDER MACHINE Office Visit [facility] - Family Medicine - [place] [address] [place] [address] Kelin Castle, SARABJIT #2 [place] [address] documented as of this encounter Visit Diagnoses Not on filedocumented in this encounter Care Teams Glue Spreader Relationship Specialty Start Date End Date Ousmane Gan MD #[address] [address] PCP - General Family Medicine 10/24/20 04/08/21 Paco Reagan APRN, WAREHOUSE MAN #[address] [address] Nurse Practitioner Advanced Practice Nurse 10/24/20 documented as of this encounter
--- OUTSIDE RECORDS SUMMARY | 2024-04-17 13:54 | XMS_ITS | Encounter Summary ---
Author Organization [facility] Address [address] [place] [address] Phone Care Team Providers Care Negative Cleaner Name Role Phone Ousmane Gan MD Primary Care Provider [phone]- [phone] Paco Reagan APRN, PHOTOGRAPHER STILL Unavailable Reason for Visit * Reason Onset Date Comments other 12/21/2020 Encounter Details Date Type Department Care Team (Late st Contact Info) Description 12/21/2020 Telephone [facility] at [facility] [address] [place] [address] Eli Tejada, PT [place] other Social History Tobacco Use Types Packs/Day Years [...] PM CDT Legal Sex Female 2:47 AM INBOUND CUSTOMER SERVICE REPRESENTATIVE Gender Identity Female 11/25/2022 4:06 PM [...] Telephone Encounter - Eli Tejada, PT - 12/21/2020 11:30 AM CDT I called patient to see if she is coming back to PT. She said she would like to schedule the last two visits for her neck but wants to wait a week or two since she's still recovering from bronchitis. documented in this encounter Plan of Treatment Upcoming Encounters Date Type Department Care Team (Late st Contact Info) Description 04/28/2024 10:00 AM INBOUND CUSTOMER SERVICE REPRESENTATIVE Appointment [facility] Cardiology Stress 1 [place] [address] Karen Andino APRN, PHOTOGRAPHER STILL [address]2 [place] [address] Discharge Disposition: Discharged to home or Selfcare 06/02/2024 10:00 AM INBOUND CUSTOMER SERVICE REPRESENTATIVE Office Visit [facility] - [facility] Medicine - [place] [address] [place] [address] Kelin Castle, SARABJIT [address]2 [place] [address] documented as of this encounter Visit Diagnoses Not on filedocumented in this encounter Care Teams Negative Cleaner Relationship Specialty Start Date End Date Ousmane Gan MD #[address] [address] PCP - General Family Medicine 10/24/20 04/08/21 Paco Reagan APRN, PHOTOGRAPHER STILL #[address] [address] Nurse Practitioner Advanced Practice Nurse 10/24/20 documented as of this encounter
--- OUTSIDE RECORDS SUMMARY | 2024-04-17 13:54 | XMS_ITS | Encounter Summary ---
Author Organization [facility] Address [address] [place] [address] Phone Care Team Providers Care Salesperson Surgical Appliances Name Role Phone Ousmane Gan MD Primary Care Provider [phone]- [phone] Paco Reagan APRN, COLLECTION SUPERVISOR Unavailable Encounter Details Date Type Department Care Team (Late st Contact Info) Description 11/15/2020 8:30 AM CDT Physical Therapy [facility] Rehab at [facility] [address] [facility], [facility] [address] [place] [address] Paco Reagan, RYAN, COLLECTION SUPERVISOR #2 [facility] [address] [place] [address] Brynn Arias, SUPERVISOR BLOOD MT Discharge Disposition: Discharged to home or Selfcare [...] PM CDT Legal Sex Female 2:47 AM FIRE SUPPORT SPECIALIST Gender Identity Female 11/25/2022 4:06 PM [...] Miscellaneous Notes * Plan of Care - GregorBrynn PTA - 11/15/2020 8:30 AM CDT Treatment Note - Electronically signed by: BRYNN ARIAS PTA November 15, 2020 SUBJECTIVE: Pt reports she feels like things are getting better. She states she has more movement and her arm pain is better. She states she notices it the most when she is lying in bed and on her L side. Objective TREATMENT: Refer to PT OP Rehab Therapy Treatment flowsheet for details/minutes. Manual therapy: Soft tissue work to rhomboids, upper trapezius, and neck in supine. Suboccipital release and massage. Upper trapezius B stretching. Mechanical traction: Cervical traction in supine position 16# for 9 min. HEP given on paper on [employer] program: Access Code: [email or web address] URL: [email or web address] Date: 11/03/2020 [facility] Ex[facility] Supine Chin Tuck - 1 [...] - 3 reps - 20 second hold ASSESSMENT: Other Details: Patient demonstrates progress as evidenced by having decreased pain when up walking around?? Pt reported no pain after manual therapy and traction. Patient would benefit from continued skilled interventions, [...] st Contact Info) Description 04/28/2024 10:00 AM FIRE SUPPORT SPECIALIST Appointment [facility] Cardiology Stress 1 [place] [address] Karen Andino APRN, COLLECTION SUPERVISOR #2 [place] [address] Discharge Disposition: Discharged to home or Selfcare 06/02/2024 10:00 AM FIRE SUPPORT SPECIALIST Office [facility] - [facility] Medicine [facility] #2 [place] [address] Kelin Castle PAC #2 [place] [address] documented as of this encounter Visit Diagnoses Not on filedocumented in this encounter Care Teams Salesperson Surgical Appliances Relationship Specialty Start Date End Date Ousmane Gan MD #[address] [address] PCP - General Family Medicine 10/24/20 04/08/21 Paco Reagan, ECHO VASCULAR TECH, COLLECTION SUPERVISOR [address] [address] Nurse Practitioner Advanced Practice Nurse 10/24/20 documented as of this encounter
--- OUTSIDE RECORDS SUMMARY | 2024-04-17 13:54 | XMS_ITS | Encounter Summary ---
Author Organization [facility] Address [address] [place] [address] Phone Care Team Providers Care Drafting Engineer Name Role Phone Ousmane Gan MD Primary Care Provider [phone]- [phone] Paco Reagan APRN, DERMATOLOGY TEACHER Unavailable Encounter Details Date Type Department Care Team (Latest Contact Info) Description 11/03/2020 11:00 AM CDT Occupational Therapy [facility] at [facility] [address] [facility], [facility] [address] [place] [address] Paco Reagan APRN, DERMATOLOGY TEACHER #2 [facility] [address] [place] [address] Deb Parikh OT [place] Discharge Disposition: Discharged to home or Selfcare [...] PM CDT Legal Sex Female 2:47 AM MOTHER HELPER Gender Identity Female 11/25/2022 4:06 PM [...] Miscellaneous Notes * Plan of Care - JackelineDeb lawrenceEMILIANO - 11/03/2020 11:00 AM CDT Treatment Note - Electronically signed by: EMILIANO GARCIA November 03, 2020 SUBJECTIVE: Patient reports that she is still having soreness, but it isn't too difficult. Patient reports thatshe has been taking ibuprofen. Objective TREATMENT: Refer to OT OP Rehab Therapy Treatment flowsheet for details/minutes. Home Exercises distributed via handout. Patient response to new home exercises provided [...] treatment: WFL. Lateral Epicondylitis Treatment Protocol Phase 2 - Restoring Flexibility: Active Stretching Exercises The muscles involved with tennis elbow lose some flexibility/elasticity, to various degrees. Exercises, in specific positions, are recommended to gradually stretch or elongate the muscle-tendon fibers surrounding the elbow. This will help reduce the discomfort you are experiencing and restore flexibility to the muscles. Moist Heat Prior to beginning your active stretching exercises, apply moist heat to the elbow for 10 minutes. The moist heat will promote soft tissue healing and increase the flexibility of the muscles surrounding the elbow. Active Stretching Exercises Perform the following active stretching exercises (on your own muscle power) 2/times a day, 10 repetitions. Actively position [...] neutral), bend your wrist towardyour body. Patient was educated on the above information, provided a handout (see media), and demonstrated good teach-back of education. Patient is currently at Exercise 3 and was further educated on not progressing until pain-free at the current stage. Patient verbalized good understanding. Therapist provided Skilled therapy by educating the patient on the Lateral Epicondylitis protocol and the benefit of ultrasound. ASSESSMENT: Other Details: Patient demonstrates progress as evidenced by good tolerance to elbow stretches. However, patient reports some stiffness in her wrist?? Patient would benefit from continued skilled interventions, [...] performance. (ISSUED massage on 10/31/20 PARAM) - - Demonstrate independence in home exercise program for theraputty and demonstrate understanding and be independent in its performance. - Patient will increase right ball rolling machine operator strength (standard testing position) to 50 lbs [...] visits for the following interventions: Therapeutic Exercise (89475) - ROM and strengthening Neuromuscular re-education (05651) Self care/home management training (68514) Therapeutic activity (11250) Instruction in home exercise program Manual therapy (48847) to address muscle tightness and tone Precautions: [...] st Contact Info) Description 04/28/2024 10:00 AM MOTHER HELPER [facility]ment [facility] Stress [address] [place] [address] Karen Andino APRN, DERMATOLOGY TEACHER #2 [place] [address] Discharge Disposition: Discharged to home or Selfcare 06/02/2024 10:00 AM MOTHER HELPER Office Visit [facility] - [facility] Medicine [facility] #2 [place] [address] Kelin Castle PAC #2 [place] [address] documented as of this encounter Visit Diagnoses Not on filedocumented in this encounter Care Teams Drafting Engineer Relationship Specialty Start Date End Date Ousmane Gan MD #[address] [address] PCP - General Family Medicine 10/24/20 04/08/21 Paco Reagan APRN, DERMATOLOGY TEACHER #[address] [address] Nurse Practitioner Advanced Practice Nurse 10/24/20 documented as of this encounter
--- OUTSIDE RECORDS SUMMARY | 2024-04-17 13:54 | XMS_ITS | Encounter Summary ---
Author Organization [facility] Address [address] [place] [place] [address] Phone Care Team Providers Care Jig Builder Name Role Phone Ousmane Gan MD Primary Care Provider [phone]- [phone] Paco Reagan APRN, ULTRASONIC SOLDERER Unavailable Reason for Visit * Reason Onset Date Comments other 12/04/2020 Encounter Details Date Type Department Care Team (Late st Contact Info) Description 12/04/2020 Telephone [facility] Rehab at [facility] [address] [place] [address] Eli Tejada, PT [place] other Social History Tobacco Use Types Packs/Day [...] CDT Legal Sex Female 2:47 AM DIRECTOR PRODUCT SAFETY Gender Identity Female 11/25/2022 4:06 PM CDT [...] Telephone Encounter - Eli Tejada, PT - 12/04/2020 1:27 PM CDT Patient called to cancel today due to a bad cough. Tomorrow was her planned last visit of PT for her neck, but she may reschedule today's session if she wishes. documented in this encounter Plan of Treatment Upcoming Encounters Date Type Department Care Team (Late st Contact Info) Description 04/28/2024 10:00 AM DIRECTOR PRODUCT SAFETY Appointment [facility] Cardiology Stress 1 [place] [address] Karen Andino APRN, ULTRASONIC SOLDERER #2 [place] [address] Discharge Disposition: Discharged to home or Selfcare 06/02/2024 10:00 AM DIRECTOR PRODUCT SAFETY Office Visit [facility] - [facility] Medicine [facility] #2 [place] [address] Kelin Castle, SARABJIT #2 [place] [address] documented as of this encounter Visit Diagnoses Not on filedocumented in this encounter Care Teams Jig Builder Relationship Specialty Start Date End Date Ousmane Gan MD #[address] [address] PCP - General Family Medicine 10/24/20 04/08/21 Paco Reagan APRN, ULTRASONIC SOLDERER #[address] [place] [address] Nurse Practitioner Advanced Practice Nurse 10/24/20 documented as of this encounter
--- OUTSIDE RECORDS SUMMARY | 2024-04-17 13:54 | XMS_ITS | Encounter Summary ---
Author Organization [facility] Address [address] [place] [address] Phone Care Team Providers Care Medical Billing Manager Name Role Phone Ousmane Gan MD Primary Care Provider Paco Reagan APRN, CORE ANALYSIS OPERATOR Unavailable Encounter Details Date Type Department Care Team (Latest Contact Info) Description 11/15/2020 7:45 AM CDT Occupational Therapy [facility] Rehab at [facility] [address] [facility], [facility] [address] [place] [address] Paco Reagan, RYAN, CORE ANALYSIS OPERATOR #2 [facility] [address] [place] [address] Desi Jiang, OT [place] Right elbow pain [...] CDT Legal Sex Female 2:47 AM DIRECTOR CHEMISTRY Gender Identity Female 11/25/2022 4:06 PM CDT [...] of Care - Desi Jiang OTRL - 11/15/2020 7:45 AM CDT Treatment Note - Electronically signed by: EMILIANO KINCAID November 15, 2020 SUBJECTIVE: Patient reports that she is still having some pain when she is sleeping. She does report that it isgetting better. She reports that she has been completing the exercises. She reports that it feels like it wants to pop; however, she hasn't experienced any popping. Patient reports that she is going to order a brace for sleeping. Patient reports that she is able to tolerate the wrist flexion on Phase 2 - Exercise 3. She reports that she can still feel the tender area; however, she is tolerating it more. OBJECTIVE: Observation: Objective Data: Pre pain: 04/23 Post-pain: 04/15/09 TREATMENT: Learner: patient Readiness: acceptance Method: explanation, demonstration and handout Refer to OT OP Rehab Therapy Treatment flowsheet for details/minutes. Home Exercises distributed via handout. Access Code: [email or web address] - Theraputty HEP Patient response to new [...] (elbow neutral), bend your wrist towardyour body. Exercise 4: With your elbow straight (extended) and palm down towards floor (elbow pronation), bend your wrist toward the floor. Patient is demonstrating good teach-back of education. Patient is currently at Exercise 4 and was further educated on not progressing until pain-free at the current stage. Patient verbalized good understanding. Soft-tissue mobilization: Goal is to assist in [...] therapy by educating the patient on continuing with Phase 2 - through Exercise 4 and not progressing past that point, as patient is reporting some pain with exercise. ASSESSMENT: Other Details: Patient demonstrates progress as evidenced by good teach-back of HEP at this time. Patient reports that she is getting an epicondylitis brace to wear, specifically at night, and she states that she is completing her exercises. Patient would benefit from continued skilled interventions, [...] 11/08/20 MKK) - Patient will increase right out of town collection clerk strength (standard testing position) to 50 lbs [...] visits for the following interventions: Therapeutic Exercise (92656) - ROM and strengthening Neuromuscular re-education (01022) Self care/home management training (82463) Therapeutic activity (47113) Instruction in home exercise program Manual therapy (07101) to address muscle tightness and tone Precautions: [...] Contact Info) Description 04/28/2024 10:00 AM DIRECTOR CHEMISTRY Appointment [facility] Cardiology Stress 1 [place] [address] Karen Andino APRN, CORE ANALYSIS OPERATOR #2 [place] [address] Discharge Disposition: Discharged to home or Selfcare 06/02/2024 10:00 AM DIRECTOR CHEMISTRY Office Visit [facility] - [facility] - [place] #2 [place] [address] Kelin Castle, SARABJIT #2 [place] [address] documented as of this encounter Visit Diagnoses Diagnosis Right elbow pain- Primary Pain in joint, upper arm Decreased strength Muscle weakness (generalized) documented in this encounter Care Teams Medical Billing Manager Relationship Specialty Start Date End Date Ousmane Gan MD #[address] [address] PCP - General Family Medicine 10/24/20 04/08/21 Paco Reagan APRN, CORE ANALYSIS OPERATOR #[address] [address] Nurse Practitioner Advanced Practice Nurse 10/24/20 documented as of this encounter
--- OUTSIDE RECORDS SUMMARY | 2024-04-17 13:54 | XMS_ITS | Encounter Summary ---
Author Organization [facility] Address [address] [place] [address] Phone Care Team Providers Care Supervisor Inventory Merchandising Name Role Phone Ousmane Gan MD Primary Care Provider [phone] Paco Reagan APRN, JET MECHANIC Unavailable Encounter Details Date Type Department Care Team (Late st Contact Info) Description 11/17/2020 10:15 AM CDT Physical Therapy [facility] Rehab at [facility] [address] [facility], [facility] [address] [place] [address] Paco Reagan, RYAN, JET MECHANIC #2 [facility] [address] [place] [address] Frederick Tejada, PT [place] Chronic neck pain [...] PM CDT Legal Sex Female 2:47 AM SPORTS INTERNSHIP Gender Identity Female 11/25/2022 4:06 PM CDT [...] of Care - Frederick Tejada, PT - 11/17/2020 10:15 AM CDT Treatment Note - Electronically signed by: FREDERICK TEJADA, PT November 17, 2020 SUBJECTIVE: There have not been any medication changesThe massage with the PT Solar Thermal Installer really helped. She thinks the neck traction is helping. She slept well last night. Neck and elbow both are improving. The left side of her neck still sometimes feels tight, but it's improving. Sleeping better and trying to keep head straight rather tilted, so she has to be careful about her position. Keeping left arm downat her side rather than overhead when sleeping. Would like traction increased a little. OBJECTIVE Observation: Objective Data: Neck traction manually reduced pain Taking OT here for right elbow pain and had it right after PT. TREATMENT: Refer to PT OP Rehab Therapy Treatment flowsheet for details/minutes. Manual therapy: Soft tissue work to rhomboids, upper trapezius, and neck in supine. Suboccipital release and massage. Upper trapezius B stretching. Tspine mobilizations in prone. She likes a pillow under legs when supine due to her low back. Mechanical traction: Cervical traction in supine position 18 lbs for 9 min. It was statically. I increased it two pounds per her request. HEP given on paper on [employer] program:Access Code: [email or web address] Reviewed home program orally with her today to ensure she is remembering them. Educated to keep head neutral when sleeping ASSESSMENT: Other Details: Patient demonstrates progress as evidenced by reporting less neck pain overall so goal is met. Never had distal pain, just to shoulder. She required cues when doing the chin tucks in sitting today, but she is independent with the original home program now. Patient would benefit from continued skilled interventions, [...] of infections. Future treatment sessions may include IASTM left rhomboids . documented in this encounter Plan of Treatment Upcoming Encounters Date Type Department Care Team (Late st Contact Info) Description 04/28/2024 10:00 AM SPORTS INTERNSHIP Appointment [facility] Cardiology Stress [address] [place] [address] Karen Andino APRN, JET MECHANIC #2 [place] [address] Discharge Disposition: Discharged to home or Selfcare 06/02/2024 10:00 AM SPORTS INTERNSHIP Office Visit [facility] #2 [place] [address] Kelin Castle, PAC #2 [place] [address] documented as of this encounter Visit Diagnoses Diagnosis Chronic neck pain- Primary Cervicalgia documented in this encounter Care Teams Supervisor Inventory Merchandising Relationship Specialty Start Date End Date Ousmane Gan MD #[address] [address] PCP - General Family Medicine 10/24/20 04/08/21 Paco Reagan APRN, JET MECHANIC #[address] [address] Nurse Practitioner Advanced Practice Nurse 10/24/20 documented as of this encounter
--- OUTSIDE RECORDS SUMMARY | 2024-04-17 13:54 | XMS_ITS | Encounter Summary ---
Author Organization [facility] Address [address] [place] [address] Phone Care Team Providers Care Machine Stripper Cutter Name Role Phone Ousmane Gan MD Primary Care Provider [phone] Paco Reagan APRN, PURCHASING/RECEIVING Unavailable Encounter Details Date Type Department Care Team (Late st Contact Info) Description 11/22/2020 9:45 AM CDT [address] [facility] Rehab at [facility] 200 [facility], [facility] [address] [place] [address] Paco Reagan, RYAN, PURCHASING/RECEIVING #2 [facility] [address] [place] [address] Brynn Arias, SECURITY PROFESSIONAL [place] Discharge Disposition: Discharged to home or Selfcare [...] PM CDT Legal Sex Female 2:47 AM DEBURRER STRIP Gender Identity Female 11/25/2022 4:06 PM CDT [...] Miscellaneous Notes * Plan of Care - Brynn Arias, SECURITY PROFESSIONAL - 11/22/2020 9:45 AM CDT Treatment Note - Electronically signed by: BRYNN ARIAS PTA November 22, 2020 SUBJECTIVE: Pt reports she does really any pain in her shoulder and neck but more of a stiffness. She states she has been doing her exercises and stretches at home and she can tell they are really helping. Objective TREATMENT: Refer to PT OP Rehab Therapy Treatment flowsheet for details/minutes. Manual therapy: Soft tissue work to rhomboids, upper trapezius, and neck in supine. Suboccipital release and massage. Upper trapezius B stretching. Mechanical traction: Cervical traction in supine position 16# for 9 min.static HEP given on paper on [employer] program: Access Code: [email or web address] URL: [email or web address] Date: 11/03/2020 Prepared by: [facility] Rehab Exercises Supine Chin Tuck - 1 [...] Patient demonstrates progress as evidenced by reporting an improvement in pain and generally just has stiffness Patient would benefit from continued skilled interventions, as stated in the plan of care, due to the following functional limitations: Pain looking up, turning to the left when driving, pain when reading, pain sleeping on left side. All charges entered today are appropriate and separate from each other. PLAN Pt repots she does not really have any pain today but has some stiffness in her L shoulder blade and up into her neck. Pt states overall her pain is staying pretty low. She had some increased pain over the weekend but she thinks that was more of the way she slept. . documented in this encounter Plan of Treatment Upcoming Encounters Date Type Department Care Team (Late st Contact Info) Description 04/28/2024 10:00 AM DEBURRER STRIP Appointment [facility] Cardiology Stress 1 [place] [address] Karen Andino APRN, PURCHASING/RECEIVING #2 [place] [address] Discharge Disposition: Discharged to home or Selfcare 06/02/2024 10:00 AM DEBURRER STRIP Office Visit [facility] #2 [place] [address] Kelin Castle, PAC #2 [place] [address] documented as of this encounter Visit Diagnoses Not on filedocumented in this encounter Care Teams Machine Stripper Cutter Relationship Specialty Start Date End Date Ousmane Gan MD #[address] [address] PCP - General Family Medicine 10/24/20 04/08/21 Paco Reagan, CONSUMER SAFETY OFFICER, PURCHASING/RECEIVING #[address] [address] Nurse Practitioner Advanced Practice Nurse 10/24/20 documented as of this encounter
--- OUTSIDE RECORDS SUMMARY | 2024-04-17 13:54 | XMS_ITS | Encounter Summary ---
Author Organization [facility] Address [address] [place] [address] Phone Care Team Providers Care Floating Labor Gang Supervisor Name Role Phone Ousmane Gan MD Primary Care Provider [phone] Paco Reagan APRN, SHOE REPAIRER Unavailable Reason for Visit * Reason Onset Date Comments Appointment 11/09/2020 Patient same day cancelled her 1015 OT appt this date. She reports that family came into town early and will not be able to make it. PAS took the phone call. Encounter Details Date Type Department Care Team (Late st Contact Info) Description 11/09/2020 Telephone [facility] Rehab at [facility] [address] [place] [address] [place] [address] Desi Jiang, OT [place] Appointment (Patient same day cancelled her 1015 OT appt this date. She reports that family came into town early and will not be able to make it. PAS took the phone call. ) Discharge Disposition: Discharged to home or Selfcare [...] PM CDT Legal Sex Female 2:47 AM ONION TOPPER Gender Identity Female 11/25/2022 4:06 PM CDT [...] st Contact Info) Description 04/28/2024 10:00 AM ONION TOPPER Appointment [facility] Cardiology Stress 1 [place] [address] Karen Andino APRN, SHOE REPAIRER #2 [place] [address] Discharge Disposition: Discharged to home or Selfcare 06/02/2024 10:00 AM ONION TOPPER Office Visit [facility] #2 [place] [address] Kelin Castle PAC #2 [place] [address] documented as of this encounter Visit Diagnoses Not on filedocumented in this encounter Care Teams Floating Labor Gang Supervisor Relationship Specialty Start Date End Date Ousmane Gan MD #[address] [address] PCP - General Family Medicine 10/24/20 04/08/21 Paco Reagan APRN, SHOE REPAIRER #[address] [address] Nurse Practitioner Advanced Practice Nurse 10/24/20 documented as of this encounter
--- OUTSIDE RECORDS SUMMARY | 2024-04-17 13:54 | XMS_ITS | Encounter Summary ---
Author Organization [facility] Address [address] [place] [address] Phone Care Team Providers Care Pressure Supervisor Name Role Phone Ousmane Gan MD Primary Care Provider [phone] Paco Reagan APRN, STEAM TABLE WORKER Unavailable Encounter Details Date Type Department Care Team (Latest Contact Info) Description 11/24/2020 9:15 AM CDT Occupational Therapy [facility] Rehab at [facility] 200 [facility], [facility] [address] [place] [address] Paco Reagan APRN, STEAM TABLE WORKER #2 [facility] [address] [place] [address] Deb Parikh OT [place] Discharge Disposition: Discharged to home or Selfcare [...] PM CDT Legal Sex Female 2:47 AM ENERGY EFFICIENCY ENGINEER Gender Identity Female 11/25/2022 4:06 PM [...] Miscellaneous Notes * Plan of Care - Jackelinehoward DebEMILIANO - 11/24/2020 9:15 AM CDT Treatment Note - Electronically signed by: EMILIANO GARCIA November 23, 2020 SUBJECTIVE: Patient reports that her elbow is feeling much better than it was the other day. She reports that some activities cause some minor pain, but nothing like it was before. She reports that she mostly deals with stiffness in the morning. Objective TREATMENT: Learner: patient Readiness: acceptance Method: explanation, demonstration and handout Refer to OT OP Rehab Therapy Treatment flowsheet for details/minutes. Home Exercises distributed via handout. Access Code: [email or web address] - Theraputty HEP Patient response to new [...] parallel. Patient's skin integrity following treatment: WFL. Theraband Stretches- Patient was provided with a green theraband and was instructed to complete 2 x10 reps of the following; - wrist flexion - wrist extension - forearm supination Patient participated in Thera-Band FlexBar activity to improve dexterity, mobility, and hazardous waste management specialist strength for the hands, wrist, forearms, and shoulders. Goal is to increase the following functional limitations: opening containers. Patient completed the following this date: Strengthening Exercises - Elbow/Forearm & Wrist: Dmitry Twist exercise protocol for Tennis Elbow: Hold FlexBar in involved (right) hand in maximum wrist extension (modified to tolerable wrist extension due to wrist pain) Grab other end of FlexBar with uninvolved (left) hand. Twist FlexBar with uninvolved wrist while holding the involved wrist in extension. Bring arms in front of body with elbows in extension while maintaining twist in FlexBar by holding with non-affected wrist in full flexion and the involved wrist in full extension Slowly allow Flexbar to untwist by allowing involved wrist to move into flexion. FlexBar Color: FlexBar Yellow: Extra Light (6 lbs) Sets: 2 Repetitions: 10 Forearm/Elbow Pronation Strengthening: (stabilize with one hand while rotating palm downward) FlexBar Color: FlexBar Yellow: Extra Light (6 lbs) Sets: 2 Repetitions: 10 Forearm/Elbow Supination Strengthening: (stabilize with one hand while rotating palm upward) FlexBar Color: FlexBar Yellow: Extra Light (6 lbs) Sets: 2 Repetitions: 10 [place] Maze- Patient was instructed to complete pinching of a marble through a fabric maze for increased fine motor coordination and strengthening. Patient was able to complete with occasional rest breaks and without an increase in pain. Soft-tissue mobilization: Goal is to assist in [...] skilled therapy by educating the patient in green theraband exercises with cues to allow her pain to dictate how much she can do. ASSESSMENT: Other Details: Patient demonstrates progress as evidenced by increased tolerance of HEP without pain reported or limited pain overall. Patient was progressed to strengthening exercises. Patient would benefit from continued skilled [...] 11/08/20 MKK) - Patient will increase right hazardous waste management specialist strength (standard testing position) to 50 lbs [...] visits for the following interventions: Therapeutic Exercise (03559) - ROM and strengthening Neuromuscular re-education (89091) Self care/home management training (81464) Therapeutic activity (17759) Instruction in home exercise program Manual therapy (19661) to address muscle tightness and tone Precautions: [...] st Contact Info) Description 04/28/2024 10:00 AM ENERGY EFFICIENCY ENGINEER Appointment [facility] Cardiology Stress 1 [place] [address] Karen Andino APRN, STEAM TABLE WORKER #2 [place] [address] Discharge Disposition: Discharged to home or Selfcare 06/02/2024 10:00 AM ENERGY EFFICIENCY ENGINEER Office Visit [facility] - [place] #2 [place] [address] Kelin Castle, SARABJIT #2 [place] [address] documented as of this encounter Visit Diagnoses Not on filedocumented in this encounter Care Teams Pressure Supervisor Relationship Specialty Start Date End Date Ousmane Gan MD #[address] [address] PCP - General Family Medicine 10/24/20 04/08/21 Paco Reagan APRN, STEAM TABLE WORKER #[address] [address] Nurse Practitioner Advanced Practice Nurse 10/24/20 documented as of this encounter
--- OUTSIDE RECORDS SUMMARY | 2024-04-17 13:54 | XMS_ITS | Encounter Summary ---
Author Organization [facility] Address [address] [place] [address] Phone Care Team Providers Care Fleet Maintenance Manager Name Role Phone Ousmane Gan MD Primary Care Provider [phone] Paco Reagan APRN, STITCH RUBBER Unavailable Reason for Visit * Reason Onset Date Comments other 11/09/2020 Encounter Details Date Type Department Care Team (Late st Contact Info) Description 11/09/2020 Telephone [facility] Rehab at [facility] [address] [place] [address] [place] [address] Eli Tejada, PT [place] other Social History Tobacco Use Types Packs/Day [...] PM CDT Legal Sex Female 2:47 AM EAR NOSE THROAT PHYSICIAN Gender Identity Female 11/25/2022 4:06 PM CDT [...] Telephone Encounter - Eli Tejada, PT - 11/09/2020 10:47 AM CDT Patient called to cancel PT today due to having family in town. documented in this encounter Plan of Treatment Upcoming Encounters Date Type Department Care Team (Late st Contact Info) Description 04/28/2024 10:00 AM EAR NOSE THROAT PHYSICIAN Appointment [facility] Cardiology Stress 1 [place] [address] Karen Andino APRN, STITCH RUBBER #2 [place] [address] Discharge Disposition: Discharged to home or Selfcare 06/02/2024 10:00 AM EAR NOSE THROAT PHYSICIAN Office Visit [facility] - [place] #2 [place] [address] Kelin Castle, SARABJIT #2 [place] [address] documented as of this encounter Visit Diagnoses Not on filedocumented in this encounter Care Teams Fleet Maintenance Manager Relationship Specialty Start Date End Date Ousmane Gan MD #[address] [address] PCP - General Family Medicine 10/24/20 04/08/21 Paco Reagan APRN, STITCH RUBBER #[address] [address] Nurse Practitioner Advanced Practice Nurse 10/24/20 documented as of this encounter
--- OUTSIDE RECORDS SUMMARY | 2024-04-17 13:54 | XMS_ITS | Encounter Summary ---
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 No / Unsure 10/31/2020 10:03 AM CDT documented as of this encounter Plan of Treatment Upcoming Encounters Date Type Department Care Team (Late st Contact Info) Description 04/28/2024 10:00 AM COUNTER SERVER [facility] Stress 1 [place] [address] Karen Andino APRN, SEARCH COORDINATOR #2 [place] [address] Discharge Disposition: Discharged to home or Selfcare 06/02/2024 10:00 AM COUNTER SERVER Office Visit [facility] #2 [place] [address] Kelin Castle, [facility] #2 [place] [address] documented as of this encounter Visit Diagnoses Not on filedocumented in this encounter Care Teams Test Grader Relationship Specialty Start Date End Date Ousmane Gan MD #[address] [address] PCP - General Family Medicine 10/24/20 04/08/21 Paco Reagan APRN, SEARCH COORDINATOR #[address] [address] Nurse Practitioner Advanced Practice Nurse 10/24/20 documented as of this encounter
--- OUTSIDE RECORDS SUMMARY | 2024-04-17 13:54 | XMS_ITS | Encounter Summary ---
Author Organization [facility] [employer] [facility] Care Team Providers Care Fish Seiner Name Role Phone Ousmane Gan MD Primary Care Provider [phone] Paco Reagan APRN, COMMANDING OFFICER HOMICIDE SQUAD Unavailable Encounter Details Date Type Department Care Team (Latest Contact Info) Description 11/22/2020 Travel Social History Tobacco Use Types Packs/Day [...] PM CDT Legal Sex Female 2:47 AM TATTOOER Gender Identity Female 11/25/2022 4:06 PM CDT [...] st Contact Info) Description 04/28/2024 10:00 AM TATTOOER [facility] Stress 1 [place] [address] Karen Andino APRN, COMMANDING OFFICER HOMICIDE SQUAD #2 [place] [address] Discharge Disposition: Discharged to home or Selfcare 06/02/2024 10:00 AM TATTOOER Office Visit [facility] - Family [facility] #2 [place] [address] Kelin Castle, [facility] #2 [place] [address] documented as of this encounter Visit Diagnoses Not on filedocumented in this encounter Care Teams Fish Seiner Relationship Specialty Start Date End Date Ousmane Gan MD #[address] [address] PCP - General Family Medicine 10/24/20 04/08/21 Paco Reagan APRN, COMMANDING OFFICER HOMICIDE SQUAD #[address] [address] Nurse Practitioner Advanced Practice Nurse 10/24/20 documented as of this encounter
--- OUTSIDE RECORDS SUMMARY | 2024-04-17 13:55 | XMS_ITS | Encounter Summary ---
Author Organization [facility] Address [address] [place] [address] Phone Care Team Providers Care Soot Blower Name Role Phone Ousmane Gan MD Primary Care Provider [phone] Paco Reagan APRN, CRUSHER SCREEN REPAIRER Unavailable Reason for Referral * PT/OT/ST (Routine) - Canceled Specialty Diagnoses / Procedures Referred By Ariana t Referred To Contact Rehabilitation Diagnoses Right elbow pain Carpal tunnel syndrome of right wrist Paco Reagan APRN, CRUSHER SCREEN REPAIRER #2 [facility] [address] [place] [address] Phone: tel: fax: [facility] Rehab at [facility] 200 [facility] [address] [place] [address] Phone: tel: fax: Referral ID Status Reason Start Date Expiration Date V isits Requested Visits Authorized [id number] Canceled 10/26/2020 1 1 Scheduling Instructions Esther is being referred for right carpal tunnel syndrome and right elbow pain. Please contact patient for scheduling questions or concerns. See below for Esther's current medications, allergies and problem list. CURRENT MEDS: Current Outpatient Medications: Acetaminophen (TYLENOL PO), Take 650 mg by mouth every 4 hours as needed., Disp: , Rfl: ergocalciferol (VITAMIN D) [address]32 UNIT Capsule, Take 1 Capsule by mouth once a week., Disp: 12 Capsule, Rfl: 0 famotidine (PEPCID) [...] APPLY TOPICALLY TWICE DAILY, Disp: , Rfl: venlafaxine (EFFEXOR-XR) 150 MG [...] and depression HLD (hyperlipidemia) Vitamin D deficiency Encounter Details Date Type Department Care Team (Late st Contact Info) Description 10/26/2020 Telephone [facility] [place] [address] Paco Reagan, UNDRAPED ARTIST MODEL, CRUSHER SCREEN REPAIRER #[address] [address] Social History Tobacco Use Types Packs/Day Years [...] PM CDT Legal Sex Female 2:47 AM PERIANESTHESIA NURSE Gender Identity Female 11/25/2022 4:06 PM CDT Sexual Orientation Not on file 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 No / Unsure 10/24/2020 9:54 AM CDT documented as of this encounter Miscellaneous Notes * Telephone Encounter - Paco Reagan APN, CNP - 10/26/2020 8:56 AM CDT Orders only documented in this encounter Plan of Treatment Upcoming Encounters Date Type Department Care Team (Late st Contact Info) Description 04/28/2024 10:00 AM PERIANESTHESIA NURSE Appointment [facility] Cardiology Stress 1 [place] [address] Karen Andino APRN, CRUSHER SCREEN REPAIRER #2 [place] [address] Discharge Disposition: Discharged to home or Selfcare 06/02/2024 10:00 AM PERIANESTHESIA NURSE Office Visit [facility] - [place] [address] [place] [address] Kelin Castle, SARABJIT #2 [place] [address] Scheduled Referrals Name Type Priority Associated Diagnoses Order Schedule OCCUPATIONAL THERAPY REFERRAL Outpatient Referral Routine Right elbow pain Carpal tunnel syndrome of right wrist Expected: 11/01/2021, Expires: 05/04/2022 documented as of this encounter Visit Diagnoses Diagnosis Right elbow pain- Primary Pain in joint, upper arm Carpal tunnel syndrome of right wrist Carpal tunnel syndrome documented in this encounter Care Teams Soot Blower Relationship Specialty Start Date End Date Ousmane Gan MD #[address] [address] PCP - General Family Medicine 10/24/20 04/08/21 Paco Reagan, UNDRAPED ARTIST MODEL, CRUSHER SCREEN REPAIRER #[address] [address] Nurse Practitioner Advanced Practice Nurse 10/24/20 documented as of this encounter
--- OUTSIDE RECORDS SUMMARY | 2024-04-17 13:55 | XMS_ITS | Encounter Summary ---
Author Organization [facility] Address [address] [place] [address] Phone Care Team Providers Care Donor Relations Manager Name Role Phone Ousmane Gan MD Primary Care Provider [phone] Paco Reagan APRN, SUBSTANCE ABUSE CLINICIAN Unavailable Reason for Visit * PT/OT/ST (Routine) - Closed Specialty Diagnoses / Procedures Referred By Ariana knight Referred To Contact Rehabilitation Diagnoses Right elbow pain Carpal tunnel syndrome of right wrist Strain of neck muscle, initial encounter Paco Reagan APRN, SUBSTANCE ABUSE CLINICIAN #[address] [address] Phone: tel: fax: [facility] [address], [address] [address] Phone: tel: fax: Referral ID Status Reason Start Date Expiration Date Visits Re quested Visits Authorized [id number] Closed 10/24/2020 1 1 Encounter Details Date Type Department Care Team (Latest Contact Info) Description 10/31/2020 10:15 AM CDT Occupational Therapy [facility] [address], [address] [place] [phone] Paco Reagan APRN, SUBSTANCE ABUSE CLINICIAN #2 [facility] [address] [place] [address] Deb Parikh OT [place] Right elbow pain; Carpal tunnel syndrome of right wrist; Strain of neck muscle, initial encounter Discharge Disposition: Discharged to home or Selfcare [...] PM CDT Legal Sex Female 2:47 AM CIRCULATION LIBRARIAN Gender Identity Female 11/25/2022 4:06 PM CDT [...] of Care - Deb Parikh OTRL - 10/31/2020 10:15 AM CDT Initial Evaluation - Electronically signed by: EMILIANO GARCIA October 31, 2020 SUBJECTIVE: Onset date: 3 months ago History of current problem: Patient reports that she had a cyst removed and a carpal tunnel releaseabout 2 years ago. Patient reports that she has an increase in elbow pain within the last few months. She says that it started toward her inner elbow, but the most consistent pain has been on her outer elbow (lateral epicondyle area). Patient gets numbness and tingling in all fingers, but her middle finger is the worst. She reports stiffness in the middle finger as well. Patient reports that x-rays were completed on her elbow, and everything came back fine. Patient reports that she has noticed a decrease in drawing box tender strength. Patient reports that her biggest concern is her elbow pain. has a past medical history of Abscess of face, Acid reflux, Allergic rhinitis, Anxiety, Chronic back pain, GERD (gastroesophageal reflux disease), Headache, History of seizure, IBS (irritable bowel syndrome), and Migraines. Patient reports a previous carpal tunnel surgery in 2019. Red flags: weakness and numbness / tingling History of previous therapies: none Patient reports 3/10 pain located right lateral elbow. Patient reports a dull, achy pain in her elbow. She reports getting sharp pains when she tries to use her arm. She reports that her pain gets toabout an 8/10 when sleeping at night. Her pain will sometimes get to a 10/10 with activity. Living arrangements: Patient's living environment does not impact her function. Current functional status: Patient has difficulty brushing her hair, and has to stop after a few passes. Patient reports difficulty washing her hair, trying to get her bra off, difficulty opening jars. She reports no difficulty with completing buttons, zippers or snaps. Patient reports increased pain with her typical cooking, cleaning, and laundry but she has to fight through them. Patient has lots of children and animals and she typically will power through it. She notices difficulty with forceful movement combined with forearm rotation. Patient is Right side dominant. Prior functional status: Patient was independent with ADLs, IADLs, and drives. She previously did not experience pain. Patient's goal for Occupational Therapy: to get my elbow feeling better Patient learning style: - Patient's barriers to learning: no barriers - Patient's preferred learning style: demonstration, pictures/videos and hands-on - Preferred language: Montserratian - Cloud Engagement Partner needed: No Written attendance policy reviewed: Yes OBJECTIVE: Observation: Functional Outcomes/Other Observations: Lateral Epicondylitis When Pain Occurs: at rest and with activity Aggravating Activities: +Lifting groceries, packages/boxes +Lifting a suitcase -Removing clothes from the washer/dryer +Pouring from a pitcher/container +Using a screwdriver, hammer +Turning doorknobs +Opening a jar +Lifting a briefcase -Ironing +Sweeping +Vacuuming Resistive Stress Testing (+/- for pain with testing) +: Wrist Extension Test - Long Finger Test + Resistive Supination +: Elbow 0 deg, Forearm Pronated, Resistance - Wrist Extension (Stage 5) Pain Rating: (+/- pain with active wrist flexion) -: Elbow 90 deg, Forearm Neutral, Wrist Flexion (Stage 1) -: Elbow 90 deg, Forearm Pronated, Wrist Flexion (Stage 2) +: Elbow 0 deg, Forearm Neutral, Wrist Flexion (Stage 3) +: Elbow 0 deg, Forearm Pronated, Wrist Flexion (Stage 4) Current Stage at which patient reports pain: Stage 4 ROM: (of affected extremity only) Elbow: WNL Forearm: Supination: 82 Pronation: 71 Steeple Jack Strength: Standard Testing Position Right: 1) 31# Left: 1) 62# 2) 37# 2) 65# 3) 40# 3) 72# Av lb. Av lb. Steeple Jack Strength: Stress Testing Position (Elbow extended, forearm pronated, arm by side) Right: 1) 45# Left: 1) 64# 2) 60# 2) 68# 3) 60# 3) 65# Av lb. Av lb. Upper Extremity Functional Index (UEFI) Flood: 0- Extreme difficulty or Unable to Perform Activity 1- Quite a bit of difficulty 2- Moderate difficulty 3- A little bit of difficulty 4- No difficulty Today, do you or would you have any difficulty with : A. Any of your usual work, housework, or school activities Score: 2 B. Your usual hobbies, recreational, or sporting activities Score: 3 C. Lifting a bag of groceries to waist level Score: 1 D. Lifting a bag of groceries above your head Score: 0 E. Grooming your hair Score: 0 F. Pushing up on your hands (i.e. from bathtub or chair) Score: 0 G. Preparing food (i.e. Peeling, cutting) Score: 2 H. Driving Score: 3 I. Vacuuming, sweeping or raking Score: 0 J. Dressing Score: 3 K. Doing up buttons Score: 4 L. Using tools or appliances Score: 3 M. Opening doors Score: 3 N. Cleaning Score: 2 O. Tying or lacing shoes Score: 4 P. Sleeping Score: 0 Q. Laundering clothes (i.e. Washing, ironing, folding) Score: 3 R. Opening a jar Score: 0 S. Throwing a ball Score: 2 T. Carrying a small suitcase with your affected limb Score: 1 Total Score: 36/80 Minimum level of detectible change (90% confidence): 9 points Source: Vickie SOLORZANO, HIEN Masters. Vickie OLIVAS (2001): Development and initial validation of the upper extremity functional index. Physiotherapy Phu. 53(4):259-267. Upper Extremity: Strength: All strength measurements out of 5 unless otherwise indicated. Steeple Jack/Pinch Strength: Grasp: Right: 36#; Left: 66# Lateral Pinch: Right: 17#; Left: 20# 3 Point Pinch: Right: 11#; Left: 17# 2 Point Pinch: Right: 13#;; Left: 13# Other Neuro Testing: Other Neuro Testing: FMC (9 Hole Peg): Right: 22.56 seconds Left: 24.76 seconds TREATMENT: Refer to OT OP Rehab Therapy Treatment flowsheet for details/minutes. Home Exercises distributed via handout. [facility] information: Access Code: [email or web address] Patient response to new home exercises provided today: tolerated well Interventions provided this session: Exercises: Patient tolerated 5 minutes of moderate pressure massage to her lateral epicondyle in clockwise/counterclockwise, linear, and perpendicular motions. Tennis Elbow Self Massage - 1 x daily - 7 x weekly - 1 sets - 10 reps Patient was also provided with size D tubigrip with instruction to remove it if she notices any itching or increased numbness/tingling in her hand. Therapist provided Skilled therapy by educating the patient on the evaluation findings and POC. Shewas educated in the likelihood that tennis elbow is the reason she is experiencing the pain that she is. She was educated in the benefit of massage to the area to increase circulation. She was educated in treatment consisting of massage, stretches, drawing box tender strengthening, pinch strengthening, activity modification, ultrasound, and brace options. She was educated on the attendance policy and agreed toabide by it. ASSESSMENT: Other Details: Therapy Diagnosis: Right elbow pain Medical Diagnosis: Right elbow pain Carpal tunnel syndrome of right wrist Strain of neck muscle, initial encounter Esther Day is a 29 y.o. patient referred to Occupational Therapy with deficits noted including impairments of pain, decreased drawing box tender/pinch strength, and coordination which contribute to the following areas of functional restriction or limitation: Washing her hair, reaching overhead to put things in cabinets, opening jars, opening doors, cleaning, sweeping, getting dressed, and peeling/cuttingfood. Clinical impression at this time: Patient will benefit from ongoing skilled Occupational Therapy intervention. Rehab potential: good. Complexities that are a barrier to service: no foreseeable barriers All charges entered today are appropriate and [...] its performance. - Patient will increase right drawing box tender strength (standard testing position) to 50 lbs [...] visits for the following interventions: Therapeutic Exercise (80002) - ROM and strengthening Neuromuscular re-education (74639) Self care/home management training (61040) Therapeutic activity (51800) Instruction in home exercise program Manual therapy (68727) to address muscle tightness and tone Precautions: [...] opportunity to work with this individual. . Cosigned by Paco Reagan APN, SUZY at 10/31/2020 11:42 AM CDT documented in this encounter Plan of Treatment Upcoming Encounters Date Type Department Care Team (Late st Contact Info) Description 04/28/2024 10:00 AM CIRCULATION LIBRARIAN Appointment [facility] Cardiology Stress [address] [place] [address] Karen Andino APRN, SUBSTANCE ABUSE CLINICIAN [address]2 [place] [address] Discharge Disposition: Discharged to home or Selfcare 06/02/2024 10:00 AM CIRCULATION LIBRARIAN Office Visit [facility] - Family Medicine [facility] #2 [place] [address] Kelin Castle, SARABJIT #2 [place] [address] documented as of this encounter Visit Diagnoses Diagnosis Right elbow pain Pain in joint, upper arm Carpal tunnel syndrome of right wrist Carpal tunnel syndrome Strain of neck muscle, initial encounter documented in this encounter Care Teams Donor Relations Manager Relationship Specialty Start Date End Date Ousmane Gan MD #[address] [address] PCP - General Family Medicine 10/24/20 04/08/21 Paco Reagan APRN, SUBSTANCE ABUSE CLINICIAN #[address] [address] Nurse Practitioner Advanced Practice Nurse 10/24/20 documented as of this encounter
--- OUTSIDE RECORDS SUMMARY | 2024-04-17 13:55 | XMS_ITS | Encounter Summary ---
Author Organization [facility] Address [address] [place] [address] Phone Care Team Providers Care Addressograph Operator Name Role Phone Ousmane Gan MD Primary Care Provider [phone] Paco Reagan APRN, CNP Unavailable Reason for Referral * Radiology Services (Routine) - Closed Specialty Diagnoses / Procedures Referred By Contac t Referred To Contact Radiology Diagnoses Right elbow pain Procedures XR ELBOW MINIMUM 3 VIEWS RIGHT Paco Reagan APRN, SPIRAL TUBE WINDER #[address] [address] Phone: tel: fax: Referral ID Status Reason Start Date Expiration Date Visits Re quested Visits Authorized [id number] Closed 10/24/2020 1 1 Reason for Visit * Radiology Services (Routine) - Closed Specialty Diagnoses / Procedures Referred By Contac t Referred To Contact Radiology Diagnoses Right elbow pain Procedures XR ELBOW MINIMUM 3 VIEWS RIGHT Paco Reagan APRN, SUZY #[address] [address] Phone: tel: fax: Referral ID Status Reason Start Date Expiration Date Visits Re quested Visits Authorized [id number] Closed 10/24/2020 1 1 Encounter Details Date Type Department Care Team (Latest Contact Info) Description 10/25/2020 11:15 AM CDT - 10/25/2020 11:59 PM CDT Hospital Encounter [facility] Diagnostic Radiology [address] [place] [address] Paco Reagan, FIELD SCOUT, SPIRAL TUBE WINDER #[address] [facility] [address] [address] Discharge Disposition: Discharged to home or Selfcare [...] PM CDT Legal Sex Female 2:47 AM BEAN SPROUT GROWER Gender Identity Female 11/25/2022 4:06 PM CDT [...] hours as needed. 2 ergocalciferol (VITAMIN D) 96291 UNIT CapsuleIndications: Vitamin D deficiency Take 1 [...] (excessive sweating). 360 Tablet 1 10/24/2020 2 ibuprofen (MOTRIN) 800 MG TabletIndications:R ight elbow pain,Carpal tunnel syndrome of right wrist,Strain of neck muscle, initial encounter Take 1 Tablet by mouth every 8 hours as needed for Moderate or more severe pain. 270 Tablet 1 10/24/2020 2 loratadine (CLARITIN) 10 MG Tablet Take 10 mg by mouth. 11/22/2018 2 triamcinolone (KENALOG) 0.1 % Cream APPLY TOPICALLY TWICE DAILY 10/12/2020 1 venlafaxine (EFFEXOR-XR) 150 MG CAPSULE SR 24 HRIndications:Anxie ty and depression Take 1 Capsule by mouth daily. 90 Capsule 1 10/24/2020 1 documented as of this encounter Plan of Treatment Upcoming Encounters Date Type Department Care Team (Late st Contact Info) Description 04/28/2024 10:00 AM BEAN SPROUT GROWER [facility] Stress [address] [place] [address] Karen Andino, RYAN, SPIRAL TUBE WINDER #2 [place] [address] Discharge Disposition: Discharged to home or Selfcare 06/02/2024 10:00 AM BEAN SPROUT GROWER Office Visit [facility] #2 [place] [address] Kelin Castle, PAC #2 [place] [address] documented as of this encounter Procedures Procedure Name Priority Date/Time Associated Diagnosis Comments XR ELBOW MINIMUM 3 VIEWS RIGHT Routine 10/25/2020 11:30 AM CDT Right elbow pain documented in this encounter Results * XR ELBOW MINIMUM 3 VIEWS RIGHT (10/25/2020 11:30 AM CDT) Anatomical Region Laterality Modality UPPER EXTREMITY, elbow Right Digital R adiography 10/26/2020 10:1 4 AM CDT Impressions 10/26/2020 10:18 AM CDT IMPRESSION: ?? 1. ??Normal right elbow evaluation. Narrative 10/26/2020 10:18 AM CDT EXAM DESCRIPTION: ?? 1. ??XR ELBOW MINIMUM 3 VIEWS RIGHT REASON FOR STUDY: ??Pain in right elbow TECHNIQUE: ??Three views submitted without comparison. FINDINGS: ??There are no fractures. ??Alignment is normal. ??The joint spaces are normal. ??There is no elbow effusion. THIS IS AN ELECTRONICALLY VERIFIED FINAL REPORT 10/26/2020 10:14 AM - Electronically signed by Kj Bonds M.D. MF: [id number] D: ??10/26/2020 10:14 AM T: ??10/26/2020 10:14 AM Report ID: [id number] Reading Location: ??[id number] Procedure Note Kj Bonds MD - 10/26/2020 EXAM DESCRIPTION: 1. XR ELBOW MINIMUM 3 VIEWS RIGHT REASON FOR STUDY: Pain in right elbow TECHNIQUE: Three views submitted without comparison. FINDINGS: There are no fractures. Alignment is normal. The joint spaces are normal. There is no elbow effusion. THIS IS AN ELECTRONICALLY VERIFIED FINAL REPORT 10/26/2020 10:14 AM - Electronically signed by Kj Bonds M.D. MF: [id number] Report ID: [id number] Reading Location: [id number] IMPRESSION: 1. Normal right elbow evaluation. Paco Reagan APRN, CNP [facility] Final Result documented in this encounter Visit Diagnoses Diagnosis Right elbow pain Pain in joint, upper arm documented in this encounter Care Teams Addressograph Operator Relationship Specialty Start Date End Date Ousmane Gan MD #[address] [address] PCP - General Family Medicine 10/24/20 04/08/21 Paco Reagan APRN, CNP [address] [address] Nurse Practitioner Advanced Practice Nurse 10/24/20 documented as of this encounter
--- OUTSIDE RECORDS SUMMARY | 2024-04-17 13:55 | XMS_ITS | Encounter Summary ---
Author Organization [facility] Address [address] [place] [address] Phone Care Team Providers Care Batch Records Clerk Name Role Phone Ousmane Gan MD Primary Care Provider [phone] Paco Reagan APRN, WEARING APPAREL SHAKER Unavailable Kj Merlos MD Primary Care Provider [phone] Encounter Details Date Type Department Care Team (Late st Contact Info) Description 10/25/2020 Telephone [facility] #2 [place] [address] Paco Reagan APRN, WEARING APPAREL SHAKER #[address] [id number] Social History Tobacco Use Types Packs/Day Years Used Date Smoking Tobacco: Light Smoker Cigarettes Smokeless Tobacco: Never Comments:1-2 cigarettes a da y Alcohol Use Standard Drinks/Week Comments Yes 0 (1 standard drink = 0.6 oz pur e alcohol) Rare PHQ-2 Answer Date Recorded Total Score - Questions 1-9 1 10/13 Sexually Active Control Partners Comments Yes Male Comments No Sex and Gender Information Value Date Recorded Sex Assigned at Female 11/25/2022 4:06 PM CDT Legal Sex Female 2:47 AM HOT BALLER Gender Identity Female 11/25/2022 4:06 PM CDT Sexual Orientation Not on file 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 No / Unsure 04/01/2022 12:59 PM HOT BALLER documented as of this encounter Miscellaneous Notes * Addendum Note - Julián Rodriguez RMA - 04/26/2022 7:28 AM CSTAddended by: JULIÁN RODRIGUEZ on: 04/26/2022 07:28 AM Modules accepted: Orders BALLER * Telephone Encounter - Carla Gutierrez RN - 10/25/2020 3:15 PM CDT Pt verbalized understanding * Telephone Encounter - Paco Reagan APN, CNP - 10/25/2020 2:39 PM CDT Please call patient. She has high cholesterol. Recommend aggressive lifestyle modifications with diet, exercise, and weight loss. No medication needed currently. Has low vitamin D. Recommend 3 monthsof therapy and recheck. Orders entered. documented in this encounter Plan of Treatment Upcoming Encounters Date Type Department Care Team (Late st Contact Info) Description 04/28/2024 10:00 AM HOT BALLER [facility] Stress [address] [place] [address] Karen Andino APRN, WEARING APPAREL SHAKER #2 [place] [address] Discharge Disposition: Discharged to home or Selfcare 06/02/2024 10:00 AM HOT BALLER Office [facility] #2 [facility] [address] Kelin Castle, [facility] #2 [place] [address] documented as of this encounter Visit Diagnoses Diagnosis Vitamin D deficiency- Primary Unspecified vitamin D deficiency documented in this encounter Care Teams Batch Records Clerk Relationship Specialty Start Date End Date Ousmane Gan MD #[address] [address] PCP - General Family Medicine 10/24/20 04/08/21 Kj Merlos MD #[address] [address] PCP - General Family Medicine 04/09/21 Paco Reagan APRN, WEARING APPAREL SHAKER #[address] [address] Nurse Practitioner Advanced Practice Nurse 10/24/20 documented as of this encounter
--- OUTSIDE RECORDS SUMMARY | 2024-04-17 13:55 | XMS_ITS | Encounter Summary ---
Author Organization [facility] Care Team Providers Care Flame Gouger Name Role Phone Ousmane Gan MD Primary Care Provider [phone] Paco Reagan APRN, FREELANCE COPYWRITER Unavailable Encounter Details Date Type Department Care Team (Latest Contact Info) Description 10/24/2020 Travel Social History Tobacco Use Types Packs/Day [...] PM CDT Legal Sex Female 2:47 AM BUNK HOUSE WORKER Gender Identity Female 11/25/2022 4:06 PM [...] st Contact Info) Description 04/28/2024 10:00 AM BUNK HOUSE WORKER [facility] Stress [address] [place] [address] Karen Andino APRN, FREELANCE COPYWRITER #2 [place] [address] Discharge Disposition: Discharged to home or Selfcare 06/02/2024 10:00 AM BUNK HOUSE WORKER Office Visit [facility] - Family [facility] #2 [place] [address] Kelin Castle, [facility] #2 [place] [address] documented as of this encounter Visit Diagnoses Not on filedocumented in this encounter Care Teams Flame Gouger Relationship Specialty Start Date End Date Ousmane Gan MD #[address] [address] PCP - General Family Medicine 10/24/20 04/08/21 Paco Reagan APRN, FREELANCE COPYWRITER #[address] [address] Nurse Practitioner Advanced Practice Nurse 10/24/20 documented as of this encounter
--- OUTSIDE RECORDS SUMMARY | 2024-04-17 13:55 | XMS_ITS | Encounter Summary ---
Author Organization [facility] Care Team Providers Care Telephone Order Supervisor Name Role Phone Diana Robles APRN Primary Care Provider [phone] Encounter Details Date Type Department Care Team (Latest Contact Info) Description 10/17/2020 Travel Social History Tobacco Use Types Packs/Day Years Used Date Smoking Tobacco: Light Smoker Cigarettes Smokeless Tobacco: Never Comments:1-2 cigarettes a da y Alcohol Use Standard Drinks/Week Comments Not Currently 0 (1 standard drink = 0.6 oz pur e alcohol) seldom Sexually Active Control Partners Comments Yes Male Comments No Sex and Gender Information Value Date Recorded Sex Assigned at Female 11/25/2022 4:06 PM CDT Legal Sex Female 2:47 AM MANAGER ASSURANCE Gender Identity Female 11/25/2022 4:06 PM CDT Sexual Orientation Not on file COVID-19 Exposure Response Date Recorded In the last month, have you been in contact with someone who was confirmed or suspected to have Coronavirus / COVID-19? No / Unsure 10/17/2020 12:01 PM CDT documented as of this encounter Plan of Treatment Upcoming Encounters Date Type Department Care Team (Late st Contact Info) Description 04/28/2024 10:00 AM MANAGER ASSURANCE [facility] [address] [place] [address] Karen Andino APRN, ORE SMELTER #2 [place] [address] Discharge Disposition: Discharged to home or Selfcare 06/02/2024 10:00 AM MANAGER ASSURANCE Office Visit [facility] - [facility] - [place] #[address] [place] [address] Kelin Castle, PAC #[address] [facility] [place] [address] documented as of this encounter Visit Diagnoses Not on filedocumented in this encounter Care Teams Telephone Order Supervisor Relationship Specialty Start Date End Date Diana Robles, RYAN [address] [facility] [place] [address] PCP - General Family Medicine 02/27/16 10/23/20 documented as of this encounter
--- OUTSIDE RECORDS SUMMARY | 2024-04-17 13:55 | XMS_ITS ---
Author Organization [facility] Address [address] [place] [address] Phone Care Team Providers Care Water Filter Cleaner Name Role Phone Kj Merlos MD Primary Care Provider [phone] Tatiana Logan APRN, ABA THERAPIST Unavailable Karen Andino APRN, ABA THERAPIST Unavailable [facility] Status:Enrolled (Active) Start date:03/18/2024 Enrollment date:03/18/2024 Related social drivers of health:Social Connections, Tobacco Use, Financial Resource Strain, Depression, Stress, Food Insecurity, Transportation Needs, Housing Stability, Utilities Continued Care and Services Coordination
--- OUTSIDE RECORDS SUMMARY | 2024-04-17 13:55 | XMS_ITS | Encounter Summary ---
Author Organization [facility] Address [address] [place] [address] Phone Care Team Providers Care Patient Ambassador Name Role Phone Ousmane Gan MD Primary Care Provider [phone] Paco Reagan APRN, BRICK STACKER Unavailable Reason for Visit * PT/OT/ST (Routine) - Closed Specialty Diagnoses / Procedures Referred By Ariana t Referred To Contact Rehabilitation Diagnoses Strain of neck muscle, initial encounter Paco Reagan APRN, BRICK STACKER [address] [address] Phone: tel: fax: [facility] at [facility] [address], [address] [address] Phone: tel: fax: Referral ID Status Reason Start Date Expiration Date Visits Re quested Visits Authorized [id number] Closed 10/24/2020 1 1 Encounter Details Date Type Department Care Team (Late st Contact Info) Description 10/31/2020 11:15 AM CDT Physical Therapy [facility] [address], [address] [place] [address] Paco Reagan APRN, BRICK STACKER #[address] [facility] [address] [place] [address] Frederick Tejada, PT [place] Chronic neck pain [...] PM CDT Legal Sex Female 2:47 AM [employer]ITAL SALES [employer]NER Gender Identity Female 11/25/2022 4:06 PM [...] of Care - Frederick Tejada, PT - 10/31/2020 11:15 AM CDT Initial Evaluation - Electronically signed by: FREDERICK TEJADA, PT October 31, 2020 SUBJECTIVE: Onset Date: 4 months, insidious left sided neck pain Patient Narrative: Has right elbow pain and left sided neck pain, not thinking if related. Just hadOT for right elbow and is going to be coming for a month. Said she had poison elpidio rash about 2 months ago that caused continued pain. Rotation of forearm makes pain. Elbow ext with resisted flexion makes pain worse. Middle finger feels tight and it is tingling sometimes when elbow hurts. Gripping makes it worse. Had right CTS and cyst removed in 2019. - Current level of function: Sleeping on left side creates sharp pain if her neck is sidebent to the left. Sleeps on left side due to right elbow but has to be careful of neck position, keeping head in midline, or else sleep supine. Having difficulty sleeping due to right elbow and neck. Turning head to the left when driving hurts. Looking down hurts when driving. - Prior level of function: Before 4 months ago, she had minimal neck pain. Said she had whiplash a few times when younger from [facility] . No elbow pain prior to 2 months ago. Symptom Location: left sided neck pain into rhomboids 1) Current pain 2/10 - Constant, described as dull, sharp, uncomfortable - Range 2/10 to 8/10 - Aggravating factors: turning neck, looking down, lying down with neck sidebent left - Easing factors: rubbing neck, self neck traction, popping neck Patient is Right side dominant. Pertinent Past Medical History including: For acid reflux and IBS, had a surgery to make a stomach flap and her esophagus fixed. Fatty cysts removed from low back. R CTS and cyst removed from wrist. Tubes in ears. Adenoids removed. Face cut open from an infection. Hypercholesterolemia. Anxiety and depression. She had periorbital cellulitis as a child. Had two infections in her right thigh. Said she is prone to infections, forms of staph, but has not had one for two years. Red flags: none present Prior treatment attempted: Came here for her back in the past. She takes IB PRN. Coordination of care: Patient denies prior therapy this year for this or any other condition. Patient is not currently seeking other concurrent treatment. 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 Home Environment: - Patient lives in a house with and two children. Said that she has to do her chores, including taking care of animals. Patient's goal for Physical Therapy: Be more comfortable when sleeping, not feel like shoulder to neck is not super tight. Patient learning style: - Barriers to learning: no barriers - Preferred learning style: demonstration - Preferred language: Bulgarian - Inpatient Coder needed: No Written attendance policy reviewed: Yes OBJECTIVE Observation: Functional Outcomes/Other Observations: She took the neck disability index on paper. She scored 22/50, 44% limited. Objective Data: 2 tests for lateral epicondylitis positive. Vitals at rest: HR 84 bpm, 98% 02, BP unable to hear measurement today. Cervical: Range of Motion: All Range of Motion documentation below is measured in degrees unless otherwise indicated. Flexion: AROM: 40; No Change Extension: AROM 40; No Change Left Side Bending: AROM: 25; Increased Pain Right Side Bending: AROM: 36; No Change Left Rotation: AROM 49; Increased Pain Right Rotation: AROM: 53; No Change Strength: All Strength measurements out of 5 unless otherwise indicated. Shoulder Abduction: Left: 5 Right: 4+ but caused forearm pain (Shoulder flexion: WNL strength) Elbow Flexion (c5): Left: 5 Right: 4+ but caused forearm pain Elbow Extension (C7): ; Within Functional Limits Wrist Flexion (C7): Left: 5 Right: 5, wrist pain Wrist Extension (C8): Left: 5 Right: 5 but caused forearm pain Flexibility: Upper Trap: Left: limited Right: limited Levator Scapulae: Left: limited Right: limitedl Pec Minor: Left: limited Right: limited Joint Mobility: Pain into left shoulder blade with mid cspine mobilizations at spinous process Upper Cervical Mobility: Within Normal Limits Mid Cervical: Within Normal Limits and Pain Lower Cervical: Within Normal Limits and Pain Upper Thoracic: WNL and Pain Posture/Palpation: Soft tissue restrictions in right upper trapezius and rhomboids. Posture: head forward, increased kyphosis and rounded shoulders-bilateral Special Tests: Compression positive Distraction positive spurlings positive ULNTT median positive Negative for: Alar's Ligament Test and Vertebral Artery Screen TREATMENT: Refer to PT OP Rehab Therapy Treatment flowsheet for details/minutes. Interventions provided this session: mechanical cspine traction in supine. Settings were for 10 pounds statically, then I increased to 13 pounds. This was set for 8 minutes. Educated her in contraindications and purposes, as well as what to expect. She said when leaving that her neck felt much better but right elbow was irritated; plan next visit to put pillow under itl Therapist provided Education in ensuring head is in midline when sleeping on her side or back. Educated her that even though she has soft tissue restrictions, will not perform dry needling sinceshe has problems with infections. Educated her in the PT plan of care, and how I will focus on neck so OT can focus on right elbow/forearm. Educated her that I do not think they are related. Educated her how to perform self neck traction but she did have right elbow pain. ASSESSMENT: Other Details: Therapy Diagnosis: chronic neck pain Medical Diagnosis: Strain of neck muscle, initial encounter Esther Day is a 29 y.o. patient referred to Physical Therapy with deficits noted including impairments of decreased strength, decreased range of motion, increased pain, increased edema and postural faults which contribute to the following areas of functional restriction or limitation: Pain looking up, turning to the left when driving, pain when reading, pain sleeping. She may have right lateral epicondylitis and is seeing OT for her elbow. Ruled out neck as a course of lateral epicondylalgia. Patient is motivated and should improve well. Clinical impression at this time: Patient will benefit from ongoing skilled Physical Therapy intervention. Rehab potential: good. Complexities that are a barrier to service: no foreseeable barriers All charges entered today are appropriate and separate from each other. PLAN Goals to be achieved in 8 visits Patient will demonstrate the followin Decrease 24-hour [...] or less to demonstrate overall improved function. Planned Interventions This patient will likely be seen 2x/week for 8 visits for the following interventions: - Manual techniques including joint mobilizations, MFR, soft tissue massage, IASTM and others as needed for pain relief, soft tissue extensibility and joint mobility (19848) - Therapeutic exercise program for: motion/mobility, strengthening, flexibility, and functional limitations (89047) - Therapeutic activities for functional activities education/training, and in home safety recommendations as appropriate (66511) - Neuro Muscular Re-education for body mechanics education, and postural re- education as appropriate (73853) - Patient education regarding posture, ergonomics, body mechanics, HEP progression and exercise performance - Individualized home exercise program - Modalities as needed for pain relief, anti-inflammatory effect and soft tissue extensibility - Mechanical traction (51957) Precautions: no dry needling due to risk of infections. Future treatment sessions to include foam roll pec stretch, foam roll tspine self mobilizations with roll perpendicular to spine, manual therapy to neck and tspine, IASTM left rhomboids Treatment may be altered based on patient progression and symptoms. The plan of care, as well as the benefits and risks of therapy were reviewed with the patient and the patient consented to treatment. . Cosigned by Paco Reagan APN, SUZY at 10/31/2020 12:41 PM CDT documented in this encounter Plan of Treatment Upcoming Encounters Date Type Department Care Team (Late st Contact Info) Description 04/28/2024 10:00 AM D[employer]ITAL SALES PLANNER Appointment [facility] Card[facility] [address] [place] [address] Karen Andino APRN, CNP [address] [place] [id number] Discharge Disposition: Discharged to home or Selfcare 06/02/2024 10:00 AM D[employer] SALES PLANNER Office Visit [facility] [address] [place] [address] Kelin Castle PAC [address] [place] [address] documented as of this encounter Visit Diagnoses Diagnosis Chronic neck pain- Primary Cervicalgia documented in this encounter Care Teams Patient Ambassador Relationship Specialty Start Date End Date Ousmane Gan MD [address] [address] PCP - General Family Medicine 10/24/20 04/08/21 Paco Reagan APRN, SUZY #[address] [address] Nurse Practitioner Advanced Practice Nurse 10/24/20 documented as of this encounter
--- OUTSIDE RECORDS SUMMARY | 2024-04-17 13:55 | XMS_ITS | Encounter Summary ---
Author Organization [facility] Address [address] [place] [address] Phone Care Team Providers Care Mounter Name Role Phone Ousmane Gan MD Primary Care Provider [phone] Paco Reagan APRN, SHRIMPING BOAT CAPTAIN Unavailable Reason for Referral * Radiology Services (Routine) - Closed Specialty Diagnoses / Procedures Referred By Contac t Referred To Contact Radiology Diagnoses Right elbow pain Procedures XR ELBOW MINIMUM 3 VIEWS RIGHT Paco Reagan APRN, SHRIMPING BOAT CAPTAIN #[address] [address] Phone: tel: fax: Referral ID Status Reason Start Date Expiration Date Visits Re quested Visits Authorized [id number] Closed 10/24/2020 1 1 * PT/OT/ST (Routine) - Closed Specialty Diagnoses / Procedures Referred By Contrebecca knight Referred To Contact Rehabilitation Diagnoses Right elbow pain Carpal tunnel syndrome of right wrist Strain of neck muscle, initial encounter Paco Reagan APRN, SHRIMPING BOAT CAPTAIN #2 [facility] [address] [place] [address] Phone: tel: fax: [facility] [address], [address] [address] Phone: tel: fax: Referral ID Status Reason Start Date Expiration Date Visits Re quested Visits Authorized [id number] Closed 10/24/2020 1 1 Scheduling Instructions Esther is being referred for neck pain, carpal tunnel right, right elbow pain. Please contact patient for scheduling questions or concerns. See below for Esther's current medications, allergies and problem list. CURRENT MEDS: Current Outpatient Medications: Acetaminophen (TYLENOL PO), Take 650 mg by mouth every 4 hours as needed., Disp: , Rfl: famotidine (PEPCID) 20 MG Tablet, Take 20 mg by mouth 2 times daily., Disp: , Rfl: glycopyrrolate (ROBINUL) 2 MG Tablet, Take up to 4mg bid, titrate per instructions, 30 DS, Disp: , Rfl: ibuprofen (MOTRIN) 800 MG Tablet, TAKE 1 TABLET BY MOUTH THREE TIMES DAILY NEEDED WITH FOOD, Disp: , Rfl: loratadine (CLARITIN) 10 MG Tablet, Take 10 mg by mouth., Disp: , Rfl: triamcinolone (KENALOG) 0.1 % Cream, APPLY TOPICALLY TWICE DAILY, Disp: , Rfl: venlafaxine (EFFEXOR-XR) 150 MG CAPSULE SR 24 HR, Take 1 Capsule by mouth daily., Disp: 7 Capsule, Rfl: 0 No current facility-administered medications for this visit. [...] hyperhidrosis Morbid obesity (HCC) Anxiety and depression * PT/OT/ST (Routine) - Closed Specialty Diagnoses / Procedures Referred By Ariana t Referred To Contact Rehabilitation Diagnoses Strain of neck muscle, initial encounter Paco Reagan, RYAN, SHRIMPING BOAT CAPTAIN #[address] [facility] [address] [place] [address] Phone: tel: fax: [facility] [address], [address] [place] [address] Phone: tel: fax: Referral ID Status Reason Start Date Expiration Date Visits Re quested Visits Authorized [id number] Closed 10/24/2020 1 1 Scheduling Instructions Esther is being referred for neck pain, right elbow pain, right carpal tunnel syndrome. Please contact patient for scheduling questions or concerns. See below for Esther's current medications, allergies and problem list. CURRENT MEDS: Current Outpatient Medications: Acetaminophen (TYLENOL PO), Take 650 mg by mouth every 4 hours as needed., Disp: , Rfl: famotidine (PEPCID) 20 MG Tablet, Take 20 mg by mouth 2 times daily., Disp: , Rfl: glycopyrrolate (ROBINUL) 2 MG Tablet, Take up to 4mg bid, titrate per instructions, 30 DS, Disp: , Rfl: ibuprofen (MOTRIN) 800 MG Tablet, TAKE 1 TABLET BY MOUTH THREE TIMES DAILY NEEDED WITH FOOD, Disp: , Rfl: loratadine (CLARITIN) 10 MG Tablet, Take 10 mg by mouth., Disp: , Rfl: triamcinolone (KENALOG) 0.1 % Cream, APPLY TOPICALLY TWICE DAILY, Disp: , Rfl: venlafaxine (EFFEXOR-XR) 150 MG CAPSULE SR 24 HR, Take 1 Capsule by mouth daily., Disp: 7 Capsule, Rfl: 0 No current facility-administered medications for this visit. [...] hyperhidrosis Morbid obesity (HCC) Anxiety and depression Reason for Visit * Reason Comments New Patient Establish care Pain Right elbow pain. Morris s been there for almost a month. Patient is feeling swelling with pain. Neck Pain Patient states that her neck feels stiff and painful Encounter Details Date Type Department Care Team (Late st Contact Info) Description 10/24/2020 10:15 AM CDT Office Visit [facility] [place] [address] Paco Reagan APRN, SUZY [address] [address] Morbid obesity (HCC) (Primary Dx); Right elbow pain; Carpal tunnel syndrome of right wrist; Strain of neck muscle, initial encounter; Anxiety and depression; Gastroesophageal reflux disease without esophagitis; Primary focal hyperhidrosis Discharge Disposition: Discharged to home or Selfcare Social History Tobacco Use Types Packs/Day Years Used Date Smoking Tobacco: Light Smoker Cigarettes Smokeless Tobacco: Never Tobacco Cessation:Ready to Q uit: Yes; Counseling Given: Yes Comments:1-2 cigarettes a day Alcohol Use Standard Drinks/Week Comments Yes 0 (1 standard drink = 0.6 oz pur e alcohol) Rare Sexually Active Control Partners Comments Yes Male Comments No Sex and Gender Information Value Date Recorded Sex Assigned at Female 11/25/2022 4:06 PM CDT Legal Sex Female 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 Gender Identity Female 11/25/2022 4:06 PM [...] Sign Reading Time Taken Comments Blood Pressure 110/66 10/24/2020 10:17 AM CDT Pulse 86 10/24/2020 10:17 AM CDT Temperature 36 ??C (96.8 ??F) 10/24/2020 10:17 AM CDT Respiratory Rate 16 10/24/2020 10:17 AM CDT Oxygen Saturation 98% 10/24/2020 10:17 AM CDT Inhaled Oxygen Concentration - - Weight 100.2 kg (221 lb) 10/24/2020 10:17 AM CDT Height 152.4 cm (5') 10/24/2020 10:17 AM CDT Body Mass Index 43.16 10/24/2020 10:17 AM CDT documented in this encounter Patient Instructions * Patient Instructions* Zandra Marquez - 10/24/2020 10:15 AM CDT Images from the original note [...] a support program: ?? Free national quitline 670-EVTI-ZQA (777-891-9042) ?? Hospital quit-smoking programs ?? [employer] 520-245-0345 ?? [employer] 670-974-0677 Support at home is important too. Family and friends can offer praise and reassurance. If the smoker in your life finds it hard to quit, encourage them to keep trying. Try prci-qxv-bdampmb medicine Nicotine replacement therapy??may make it??easier to [...] to quit smoking, try these resources:? www.cdc.gov/tobacco/quit_smoking/ 690-WQRX-ZUL (303-810-1193) ?? www.smokefree.gov 555-96T-AHLV (385-206-6068) ?? www.lung.org/stop-smoking/ 800-LUNGUSA (260-138-2652) Emerita last reviewed this educational content on 03/14/2019 ?? 9041-2147 [employer]. All rights reserved. This information is not intended as a substitute for professional medical care. Always follow your healthcare professional's instructions. documented in this encounter Progress Notes * Aby Magana - 10/24/2020 10:15 AM CDT Pre-Visit Planning Documentation Main reason for visit? New patient , pain in Right elbow Any other concerns or questions that should be discussed at the visit? No Recent ED Visits and Hospitalizations 02/18/19 [facility] Lipoma of skin and subcutaneous tissue, Admission (Discharged) 04/29/18 Trent Blanton MD, [facility] Carpal tunnel syndrome of right wrist, Admission (Discharged) 07/04/17 [facility] Lipoma of torso, Admission (Discharged) 03/31/17 Robert Akers MD, [facility] Admission (Discharged) 03/24/17 [facility] ([facility]) 03/11/16 Junior Peraza MD, [facility] Noninfectious gastroenteritis, unspecified type, ED (DISCHARGE) Health Maintenance Due Topic Date Due ??? Pneumococcal Immunization (0-64 years) (1 of 2 - PPSV23) Never done ??? SARS-COV-2 Immunization (1) Never done ??? Pap Smear Never done Orders due are pended? no Pre-Visit Planning Status: Complete- with patient contact Communication Method Used to Complete PVP: Phone Pre-Visit Planning documented on 10/20/20 2:43 PM CDT by Aby Magana * Zandra Marquez - 10/24/2020 10:15 AM CDT Esther Day was provided education materials regarding smoking cessation as noted on the AfterVisit Summary. Counseling Given and Ready to Quit Bill are updated in the Social History. * Zandra Marquez - 10/24/2020 10:15 AM CDT Esther Day, 29 y.o., female is here for New Patient ([facility]), Pain (Right elbow pain.Has been there for almost a month. Patient is feeling swelling with pain.), and Neck Pain (Patient states that her neck feels stiff and painful) Medication Refills: Patient reports/denies need for medication refills. Orders Pended: no Requested Prescriptions No prescriptions requested or ordered in this encounter Home Medications Medication Sig Start Date End Date Taking? Authorizing Provider Acetaminophen (TYLENOL PO) Take 650 mg by mouth every 4 hours as needed. Yes Sunita Bunch MD famotidine (PEPCID) 20 MG Tablet Take 20 mg by mouth 2 times daily. Yes Sunita Bunch MD glycopyrrolate (ROBINUL) 2 MG Tablet Take up to 4mg bid, titrate per instructions, 30 DS 12/25/18 Yes Sunita Bunch MD ibuprofen (MOTRIN) 800 MG Tablet TAKE 1 TABLET BY MOUTH THREE TIMES DAILY NEEDED WITH FOOD 12/08/18 Yes Sunita Bunch MD loratadine (CLARITIN) 10 MG Tablet Take 10 mg by mouth. 11/22/18 Yes Sunita Bunch MD naproxen sodium (ALEVE) 220 MG Tablet Take 220 mg by mouth 2 times daily as needed. Yes Sunita Bunch MD SERTRALINE HCL PO Take by mouth every evening. 1 tab Yes Sunita Bunch MD triamcinolone (KENALOG) 0.1 % Cream APPLY TOPICALLY TWICE DAILY 10/12/20 Yes Sunita Bunch MD venlafaxine (EFFEXOR-XR) 150 MG CAPSULE SR 24 HR Take 1 Capsule by mouth daily. 10/19/20 Yes Paco Reagan APN, SHRIMPING BOAT CAPTAIN Medications Discontinued During This Encounter Medication Reason ??? Cyanocobalamin (VITAMIN B-12 PO) Med List Clean Up ??? oxyCODONE (ROXICODONE) 5 MG Tablet Med List Clean Up ??? Norgestimate-Eth Estradiol (SPRINTEC 28 PO) Med List Clean Up I have reviewed the home medication list [...] been addressed with the patient today: BMI, Pneumonia, Pap and Smoking * Paco Reagan APN, SUZY - 10/24/2020 10:15 AM CDT Subjective: CC: NPE with elbow pain Esther Day is a 29-year-old female who presents to the office today for new patientexamination with complaint of elbow pain. Past medical history of IBS D, GERD, right carpal tunnel status post carpal tunnel release surgery, and hyperhidrosis. Family medical history of seizures, skin cancer, and oral cancer. Patient reports she is an occasional smoker when drinking. She drinks alcohol once monthly. Also uses marijuana at times. Reports a deep aching pain to the right medial elbow and right forearm for the last month. 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 That has beenpersistent since after her surgery, although improved from pre surgical levels. Patient states she did not do any post surgical therapy. She reports that the pain elbow is worse with certain movements in position. Reports swelling in the elbow. Denies any injury, fever, or chills. She does see and OBGYN, although her last appointment with him was 4 years ago. She denies any other acute complaintsat this time. The history is provided by the patient. No per diem interpreter was used. Pain Associated symptoms include arthralgias, joint swelling and weakness. Pertinent negatives include no abdominal pain, chest pain, chills, congestion, coughing, fatigue, fever, headaches, myalgias, nausea, numbness, rash, sore throat or vomiting. Neck Pain Associated symptoms include weakness. Pertinent negatives include no chest pain, fever, headaches, numbness, photophobia or trouble swallowing. Review of Systems Constitutional: Negative for chills, [...] frequency, hematuria and urgency. Musculoskeletal: Positive for arthralgias and joint swelling. Negative for back pain and myalgias. Skin: Negative for rash and wound. Neurological: Positive for weakness. Negative for dizziness, seizures, syncope, numbness and headaches. Psychiatric/Behavioral: Negative for suicidal ideas. Allergies Allergies Allergen Reactions ??? Augmentin [Amoxicillin-Pot Clavulanate] Rash and Itching ??? Ceclor [Cefaclor] Hives and Rash ??? Codeine Hives and Itching Medications Current Outpatient Medications: ??? Acetaminophen (TYLENOL PO), Take 650 mg by mouth every 4 hours as needed., Disp: , Rfl: ??? famotidine (PEPCID) 20 MG Tablet, Take [...] RELEASE RIGHT; Surgeon: Trent Blanton MD; Location: [facility]; Service: Orthopaedic ??? EXPLORATORY OF ABDOMEN 2002 Endo fundal plication ??? LIPOMA RESECTION Left 07/04/2017 Procedure: EXCISION LIPOMA LEFT UPPER BACK; Surgeon: Gareth Em MD; Location: [facility]; Service: General ??? LIPOMA RESECTION Bilateral 02/18/2019 Procedure: EXCISION LIPOMAS LOWER BACK TIMES TWO; Surgeon: Escobar Goodman MD; Location: [facility]; Service: General ??? MYRINGOTOMY Bilateral 1989' ??? TONSILLECTOMY ??? WRIST GANGLION EXCISION Right 04/29/2018 Procedure: GANGLION CYST EXCISION REMOVAL RIGHT WRIST; Surgeon: Trent Blanton MD; Location: [facility]; Service: Orthopaedic Family History Family History Problem [...] General: No deformity. Normal range of motion. Right elbow: No swelling or deformity. Tenderness (Muscular) present. Cervical back: Normal range of motion and neck supple. Lymphadenopathy: Cervical: No cervical adenopathy. Skin: General: Skin is warm and dry. Coloration: Skin is not pale. Findings: No rash. Neurological: Mental Status: She is alert and oriented to person, place, and time. Motor: Weakness (Mild manufacturing leader strength weakness on the right) present. Psychiatric: Behavior: Behavior normal. Thought Content: Thought content normal. Judgment: Judgment normal. Vitals: 10/24/20 1017 BP: 110/66 BP Location: Right Arm BP Position: Sitting BP Cuff Size: Regular Pulse: 86 Resp: 16 Temp: 96.8 ??F (36 ??C) TempSrc: Temporal SpO2: 98% Weight: 221 lb (100.2 kg) Height: 5' (1.524 m) Assessment and Plan See Diagnoses, Orders, Follow-up, and Instructions 1. Morbid obesity (HCC) - CMP (COMPREHENSIVE METABOLIC PANEL); Future - LIPID PANEL; Future - COMPLETE BLOOD COUNT (CBC) WITH DIFF; Future - THYROID SCREEN WITH REFLEX; Future - VITAMIN B12; Future - FOLIC ACID (FOLATE); Future - VITAMIN D, 25 HYDROXY TOTAL; Future 2. Right elbow pain - ibuprofen (MOTRIN) 800 MG Tablet; Take 1 Tablet by mouth every 8 hours as needed for Moderate or more severe pain. Dispense: 270 Tablet; Refill: 1 - PHYSICAL THERAPY REFERRAL; Future - OCCUPATIONAL THERAPY REFERRAL; Future - XR ELBOW MINIMUM 3 VIEWS RIGHT; Future 3. Carpal tunnel syndrome of right wrist - ibuprofen (MOTRIN) 800 MG Tablet; Take 1 Tablet by mouth every 8 hours as needed for Moderate or more severe pain. Dispense: 270 Tablet; Refill: 1 - PHYSICAL THERAPY REFERRAL; Future - OCCUPATIONAL THERAPY REFERRAL; Future 4. Strain of neck muscle, initial encounter - ibuprofen (MOTRIN) 800 MG Tablet; Take 1 Tablet by mouth every 8 hours as needed for Moderate or more severe pain. Dispense: 270 Tablet; Refill: 1 - PHYSICAL THERAPY REFERRAL; Future - OCCUPATIONAL THERAPY REFERRAL; Future 5. Anxiety and depression - venlafaxine (EFFEXOR-XR) 150 MG CAPSULE SR 24 HR; Take 1 Capsule by mouth daily. Dispense: 90 Capsule; Refill: 1 6. Gastroesophageal reflux disease without esophagitis - famotidine (PEPCID) 20 MG Tablet; Take 1 Tablet by mouth 2 times daily. Dispense: 180 Tablet; Refill: 1 7. Primary focal hyperhidrosis - glycopyrrolate (ROBINUL) 2 MG Tablet; Take 2 Tablets by mouth 2 times daily as needed (excessive sweating). Dispense: 360 Tablet; Refill: 1 Morbid obesity. Check lab work. Encourage diet, exercise, weight loss. Right elbow pain. Continue ibuprofen. Send for PT/OT referral and get x-ray. Carpal tunnel will do therapy. Strain of neck muscle. Therapy and ibuprofen. Anxiety depression. Stable on venlafaxine. Will refill that. GERD. Stable on famotidine. Will refill that. Primary focal hyperhidrosis. Stable on p.r.n. glycopyrrolate. Follow-up in office in 2-3 months with new PCP. I discussed all new medications and potential side effects or risks associated with them. Patient is to contact our office with any concerns. Patient instructions and educational materials were given to the patient. Patient (or patient instruments sales representative) demonstrates verbal understanding of instructions [...] referring physician. Documentation for this visit on 10/24/20 was completed using a template. I have seen and examined the patient. Everything documented was personally performed at this visit with the necessary additions, deletions and changes made as appropriate. documented in this encounter Plan of Treatment Upcoming Encounters Date Type Department Care Team (Late st Contact Info) Description 04/28/2024 10:00 AM EXTRACTOR AND WRINGER OPERATOR [facility]ment [facility] [address] [place] [address] Karen Andino APRN, SHRIMPING BOAT CAPTAIN [address] [place] [address] Discharge Disposition: Discharged to home or Selfcare 06/02/2024 10:00 AM EXTRACTOR AND WRINGER OPERATOR [facility] Medicine [facility] [address] [place] [address] Kelin Castle, PAC [address] [place] [address] Scheduled Referrals Name Type Priority Associated Diagnoses Order Schedule PHYSICAL THERAPY REFERRAL Outpatient Referral Routine Right elbow pain Carpal tunnel syndrome of right wrist Strain of neck muscle, initial encounter Expected: 10/24/2020, Expires: 10/24/2021 OCCUPATIONAL THERAPY REFERRAL Outpatient Referral Routine Right elbow pain Carpal tunnel syndrome of right wrist Strain of neck muscle, initial encounter Expected: 10/24/2020, Expires: 10/24/2021 documented as of this encounter Results * XR ELBOW MINIMUM [...] AM T: ??10/26/2020 10:14 AM Report ID: [id number] Reading Location: ??[id number] Procedure Note Kj Bonds MD - 10/26/2020 EXAM DESCRIPTION: 1. XR ELBOW MINIMUM 3 VIEWS RIGHT REASON FOR STUDY: Pain in right elbow TECHNIQUE: Three views submitted without comparison. FINDINGS: There are no fractures. Alignment is normal. The joint spaces are normal. There is no elbow effusion. THIS IS AN ELECTRONICALLY VERIFIED FINAL REPORT 10/26/2020 10:14 AM - Electronically signed by Kj SAMAYOA: YAO Report ID: [id number] Reading Location: [id number] IMPRESSION: 1. Normal right elbow evaluation. Paco Reagan APRN, SHRIMPING BOAT CAPTAIN IMG DIAGNOSTIC O RDERABLES Final Result * (ABNORMAL) VITAMIN D, 25 HYDROXY TOTAL (10/25/2020 11:19 AM CDT) VITAMIN D, 25 HYDROX 23(L) >=30 ng/mL 10/25/2020 1:34 PM CDT [facility] Blood Venipuncture / Unknown 10/25/2020 11:19 AM CDT 10/25/2020 12:32 PM CDT Narrative [facility] - 10/25/2020 1:34 PM CDT Published reference ranges for Vitamin D vary depending on time and place and method of testing, and on patient's age, sex, ethnicity and levels of other measured analytes such as parathormone, calcium and phosphorus. ??The result should be evaluated in conjunction with clinical findings and suspicions. [employer] and Endocrine Clinical Practice Guidelines: Status Vitamin D levels (ng/mL) Deficient <=20 At risk of inadequacy 21-29 Sufficient 30-100 Centers of Disease Control and Prevention Guidelines: Status Vitamin D levels (ng/mL) Deficient <13 At risk of inadequacy 13-19 Sufficient 20-50 Possibly harmful >50 References: [employer], 2010 Dietary reference intakes for calcium and vitamin D. [place]: ??The National Academies Press. Mami M, Sonam N, Corbin MORRIS, et al., Evaluation, treatment, and prevention of Vitamin D deficiency: an Endocrinology Clinical Practice Guideline. JCEM 2011 96: 7 9760-8377. Ha Contreras, Leonardo C, Dayanara Traylor, et al., Vitamin D Status: ??[facility], 2000- 1005, [facility] data brief, no. 59, MD Danielle: ??[facility] Statistics. 2011. Paco Reagan APRN, SHRIMPING BOAT CAPTAIN CHEMISTRY ORDERA BLES Final Result Performing Organization Address City/[facility]/ZIP Co de Phone Number [facility] [address] [place] [address] * FOLIC ACID (FOLATE) (10/25/2020 11:19 AM CDT) FOLATE 11.2 3.1 - 17.5 ng/mL 10/25/2020 1:34 PM CDT [facility] IS THE PATIENT REQUIRED TO BE FASTING? No 10/25/2020 1:34 PM CDT [facility] Blood Venipuncture / Unknown 10/25/2020 11:19 AM CDT 10/25/2020 12:32 PM CDT Paco Reagan APRN, SHRIMPING BOAT CAPTAIN CHEMISTRY ORDERA BLES Final Result Performing Organization Address [facility]/ZIP Co de Phone Number [facility] [address] [place] [address] * VITAMIN B12 (10/25/2020 11:19 AM CDT) VITAMIN B12 336 243 - 894 pg/mL 10/25/2020 1:35 PM CDT [facility] Blood Venipuncture / Unknown 10/25/2020 11:19 AM CDT 10/25/2020 12:32 PM CDT Paco Reagan APRN, SUZY CHEMISTRY ORDERA BLES Final Result [facility] [address] [place] [address] * (ABNORMAL) LIPID PANEL (10/25/2020 11:19 AM CDT) CHOLESTEROL 250(H) <=200 mg/dL 10/25/2020 1:33 PM CDT [facility] TRIGLYCERIDES 395(H) <150 mg/dL 10/25/2020 1:33 PM CDT [facility] HDL CHOLESTEROL 35.6(L) >40 mg/dL 1:33 PM CDT [facility] LDL 135(H) 5 - 130 mg/dL 10/25/2020 1:33 PM CDT [facility] VLDL 79(H) 5 - 55 mg/dL 10/25/2020 1:33 PM CDT [facility] CHOL/HDL RATIO 7.0(H) 0.0 - 4.4 10/25/2020 1:33 PM CDT [facility] NON-HDL CHOLESTEROL 214.4(H) <130 mg/dL 10/25/2020 1:33 PM CDT [facility] IS THE PATIENT REQUIRED TO BE FASTING? Yes 10/25/2020 1:33 PM CDT [facility] HAS THE PATIENT BEEN FASTING? Yes 10/25/2020 1:33 PM CDT [facility] Blood Venipuncture / Unknown 10/25/2020 11:19 AM CDT 10/25/2020 12:35 PM CDT Paco Reagan APRN, SHRIMPING BOAT CAPTAIN CHEMISTRY ORDERA BLES Final Result [facility] [address] [place] [address] * CMP (COMPREHENSIVE METABOLIC PANEL) (10/25/2020 11:19 AM CDT) SODIUM 138 136 - 144 mmol/L 10/25/2020 1:33 PM CDT [facility] POTASSIUM 4.0 3.5 - 5.1 mmol/L 10/25/2020 1:33 PM CDT [facility] CHLORIDE 103 100 - 110 mmol/L 10/25/2020 1:33 PM CDT [facility] CO2, VENOUS 25 22 - 32 mmol/L 10/25/2020 1:33 PM CDT [facility] ANION GAP 14.0 8.0 - 20.0 mmol/L 10/25/2020 1:33 PM CDT [facility] GLUCOSE 97 70 - 99 mg/dL 10/25/2020 1:33 PM CDT [facility] BUN 9 6 - 20 mg/dL 10/25/2020 1:33 PM CDT [facility] CREATININE, BLOOD 0.63 0.60 - 1.10 mg/dL 10/25/2020 1:33 PM CDT [facility] BUN/CREATININE RATIO 14 12 - 20 ratio 10/25/2020 1:33 PM CDT [facility] TOTAL PROTEIN 7.5 6.0 - 8.3 g/dL 10/25/2020 1:33 PM CDT [facility] ALBUMIN 4.7 3.5 - 5.2 g/dL 10/25/2020 1:33 PM CDT [facility] Comment: The colormetric methods used for the determination of Albumin may lead to falsely elevated test results in patients suffering from renal failure or insufficiency due to interference with other proteins. A/G RATIO 1.7 1.0 - 2.0 10/25/2020 1:33 PM CDT [facility] CALCIUM 9.4 8.9 - 10.3 mg/dL 10/25/2020 1:33 PM CDT [facility] T BILI 0.3 <=1.2 mg/dL 10/25/2020 1:33 PM CDT [facility] SGOT (AST) 24 <=32 U/L 10/25/2020 1:33 PM CDT [facility] SGPT (ALT) 29 <=41 U/L 10/25/2020 1:33 PM CDT [facility] ALKALINE PHOSPHATASE 90 35 - 105 U/L 10/25/2020 1:33 PM CDT [facility] GFR, EST. NONAFRICAN >60 >=60 10/25/2020 1:33 PM CDT [facility] GFR, EST. >60 >=60 021 1:33 PM CDT [facility] Comment: Creatinine Clearance is the preferred criteria for selecting drug dose adjustments in renally impaired patients. ??The GFR is provided as additional pertinent clinical information. GFR is reported in mL/min/1.73 sq m. IS THE PATIENT REQUIRED TO BE FASTING? No 10/25/2020 1:33 PM CDT [facility] Blood Venipuncture / Unknown 10/25/2020 11:19 AM CDT 10/25/2020 12:35 PM CDT us Paco Reagan APRN, SHRIMPING BOAT CAPTAIN CHEMISTRY ORDERA BLES Final Result [facility] [address] [place] [address] documented in this encounter Visit Diagnoses Diagnosis Morbid obesity (HCC)- Primary Morbid obesity Right elbow pain Pain in joint, upper arm Carpal tunnel syndrome of right wrist Carpal tunnel syndrome Strain of neck muscle, initial encounter Anxiety and depression Dysthymic disorder Gastroesophageal reflux disease without esophagitis Esophageal reflux Primary focal hyperhidrosis Right elbow pain Pain in joint, upper arm documented in this encounter Care Teams Mounter Relationship Specialty Start Date End Date Ousmane Gan MD #[address] [address] PCP - General Family Medicine 10/24/20 04/08/21 Paco Reagan APRN, SHRIMPING BOAT CAPTAIN #[address] [address] Nurse Practitioner Advanced Practice Nurse 10/24/20 documented as of this encounter
--- OUTSIDE RECORDS SUMMARY | 2024-04-17 13:55 | XMS_ITS | Encounter Summary ---
Author Organization [facility] Address [address] [place] [address] Phone Care Team Providers Care Reporting Analyst Name Role Phone Diana Robles APRN Primary Care Provider Encounter Details Date Type Department Care Team (Late st Contact Info) Description 10/20/2020 Telephone [facility] [address]2 [place] [address] Diana Robles APRN 4 [facility] [address] [place] [address] Social History Tobacco Use Types [...] CDT Legal Sex Female 2:47 AM WATER RECLAMATION SYSTEMS OPERATOR Gender Identity Female 11/25/2022 4:06 PM [...] encounter Miscellaneous Notes * Telephone Encounter - Aby Magana - 10/20/2020 2:48 PM CDT Pre-visit complete documented in this encounter Plan of Treatment Upcoming Encounters Date Type Department Care Team (Late st Contact Info) Description 04/28/2024 10:00 AM WATER RECLAMATION SYSTEMS OPERATOR Appointment [facility] Cardiology Stress [address] [place] [address] Karen Andino APRN, TEXTILE CUTTING MACHINE OPERATOR [address] [place] [address] Discharge Disposition: Discharged to home or Selfcare 06/02/2024 10:00 AM WATER RECLAMATION SYSTEMS OPERATOR Office Visit [facility] - [place] [address] [place] [address] Kelin Castle, PAC [address] [place] [address] documented as of this encounter Visit Diagnoses Not on filedocumented in this encounter Care Teams Reporting Analyst Relationship Specialty Start Date End Date Diana Robles APRN [address] [place] [address] [address] [place] [address] PCP - General Family Medicine 02/27/16 10/23/20 documented as of this encounter
--- OUTSIDE RECORDS SUMMARY | 2024-04-17 13:55 | XMS_ITS | Encounter Summary ---
Author Organization [facility] Address [address] [place] [address] Phone Care Team Providers Care Fiberglass Boat Maker Name Role Phone Diana Robles APRN Primary Care Provider Reason for Visit * Reason Onset Date Comments Medication Management 10/19/2020 Encounter Details Date Type Department Care Team (Late st Contact Info) Description 10/19/2020 Telephone [facility] [address] [place] [address] Paco Reagan APRN, MACHINE WELDER #[address] [address] Medication Management Social History Tobacco Use Types Packs/Day Years [...] PM CDT Legal Sex Female 2:47 AM TELEPHONY ENGINEER Gender Identity Female 11/25/2022 4:06 PM CDT Sexual Orientation Not on file COVID-19 Exposure Response Date Recorded In the last month, have you been in contact with someone who was confirmed or suspected to have Coronavirus / COVID-19? No / Unsure 10/17/2020 12:01 PM CDT documented as of this encounter Miscellaneous Notes * Telephone Encounter - Zahra Duarte RN - 10/19/2020 2:04 PM CDT Called and spoke with patient regarding request for Venlafaxine Sent 7 days supply to her pharmacy.Patient verbalizes understanding. * Telephone Encounter - Paco Reagan APN, CNP - 10/19/2020 1:21 PM CDT Sent 7 days supply. * Telephone Encounter - Mariely Mann RN - 10/19/2020 12:10 PM CDT Patient was seeing Diana Robles who retired and she was supposed to see Dr. Anderson instead, but he always cancels. Patient requesting a 5-day script as she cannot get a hold of her previous provider's office for a refill until she is seen in office. Patient requesting: Venlafaxine 150mg 1 capsule daily. States that she took the last pill last night. Patien is scheduled to see you: Name: Esther Day Date: 10/24/2020 Status: Scheduled Time: 10:15 AM Length: 30 Arrive By: 10:00 AM ? Visit Type: NEW PATIENT [1003] CSN: [id number] Provider: Paco Reagan APN, CNP Department: [facility] Notes: Est Care / Right elbow pain / Anxiety medication management and refills / Negative COVID screen Please advise. documented in this encounter Plan of Treatment Upcoming Encounters Date Type Department Care Team (Late st Contact Info) Description 04/28/2024 10:00 AM TELEPHONY ENGINEER Appointment [facility] Cardiology Stress [address] [place] [address] Karen Andino APRN, MACHINE WELDER [address] [place] [address] Discharge Disposition: Discharged to home or Selfcare 06/02/2024 10:00 AM TELEPHONY ENGINEER Office Visit [facility] - Family Medicine [facility] [address] [place] [address] Kelin Castle, PAC [address] [place] [address] documented as of this encounter Visit Diagnoses Not on filedocumented in this encounter Care Teams Fiberglass Boat Maker Relationship Specialty Start Date End Date Diana Robles APRN [address] [place] [address] [place] [address] PCP - General Family Medicine 02/27/16 10/23/20 documented as of this encounter
--- OUTSIDE RECORDS SUMMARY | 2024-04-17 14:00 | XMS_ITS | Encounter Summary ---
Author Organization [facility] Healthcare Address [address] [place] [address] Care Team Providers Care Shot Polisher And Inspector Name Role Phone Kj Merlos MD Primary Care Provider [phone] Encounter Details Date Type Department Care Team (Late st Contact Info) Description 11/03/2021 7:30 AM CDT Lab [facility] 1 [place] [address] Robert kAers MD [address] [place] [address] [address]ERE[address] [address] Discharge Disposition: Discharge to home or self care Social History Tobacco Use Types Packs/Day Years Used Date Smoking Tobacco: Unknown Comments Unknown Sex and Gender Information Value Date Recorded Sex Assigned at Not on file Legal Sex Female 3:07 AM BOAT WASHER Gender Identity Not on file Sexual Orientation Not on file documented as of this encounter Discharge Disposition Disposition Code Departure Means Destination Discharge to home or self care documented in this encounter Plan of Treatment Not on file documented as of this encounter Procedures Procedure Name Priority Date/Time Associated Diagnosis Comments GTT 100GM 3HR GESTATIONAL DIAGNOSTIC Routine 11/03/2021 10:40 AM CDT GTT 100GM 2HR GESTATIONAL DIAGNOSTIC Routine 11/03/2021 9:40 AM CDT GTT 100GM 1HR GESTATIONAL DIAGNOSTIC Routine 11/03/2021 8:40 AM CDT GTT 100GM FASTING GESTATIONAL DIAGNOSTIC Routine 11/03/2021 7:29 AM CDT documented in this encounter Results * (ABNORMAL) GLucose tolerance testing 100 gram 3 hour gestational (11/03/2021 10:40 AM CDT) GTT 100g 3h gest 148(H) <=139 mg/dL MILENA SYLVIA ([place]) Blood 11/03/2021 10:4 0 AM CDT 11/03/2021 10:46 AM CDT Robert Akers MD LAB BLOOD ORDERABLES F inal Result MILENA WARD ([place]) 1 [facility] [employer] [place] [address] * Glucose tolerance testing 100 gram 2 hour gestational (11/03/2021 9:40 AM CDT) GTT 100g 2h gest 129 <=154 mg/dL MILENA SYLVIA ([place]) Blood 11/03/2021 9:40 AM CDT 11/03/2021 9:47 AM CDT Robert Akers MD LAB BLOOD ORDERABLES F inal Result Performing Organization Address [facility] Co de Phone Number MILENA WARD ([place]) 1 [facility] [employer] [place] [address] * (ABNORMAL) Glucose tolerance testing 100 gram 1 hour gestational (11/03/2021 8:40 AM CDT) GTT 100g 1h gest 207(H) <=179 mg/dL MILENA WARD ([place]) Blood 11/03/2021 8:40 AM CDT 11/03/2021 9:20 AM CDT Robert Akers MD LAB BLOOD ORDERABLES F inal Result MILENA WARD ([place]) 1 [facility] [employer] [place] [address] * (ABNORMAL) Glucose tolerance testing 100 gram fasting gestational (11/03/2021 7:29 AM CDT) GTT 100g fasting gest 105(H) <=94 mg/dL MILENA WARD ([place]) Comment: Interpretive data 100 gram 3 hour Gestational Diabetes Diagnostic Diagnostic criteria require that 2 or more of the following criteria be met: Fasting: > or = to 95 mg/dL 1 hour: > or = to 180 mg/dL 2 hour: > or = to 155 mg/dL 3 hour: > or = to 140 mg/dL Reference Interval Info: Devon Pettit,et al. Taylor-Kassidyan Compared with National Diabetes Data Group Criteria for Diagnosing Gestational Diabetes. Obstetrics and Gynecology 2016:127 (5): 893-898. Diabetes Care 2020; 43(Suppl 1):S14-31 Current interpretive data was last revised 2020. Blood 11/03/2021 7:29 AM CDT 11/03/2021 7:34 AM CDT us Robert Akers MD LAB BLOOD ORDERABLES F inal Result MILENA [place]ARD ([place]) 1 [facility] [place] [address] documented in this encounter Visit Diagnoses Not on filedocumented in this encounter Care Teams Shot Polisher And Inspector Relationship Specialty Start Date End Date Kj Merlos MD [address] [address] PCP - General 11/03/21 documented as of this encounter
--- OUTSIDE RECORDS SUMMARY | 2024-04-17 14:00 | XMS_ITS | Encounter Summary ---
Author Organization [facility] Healthcare Address [address] [place] [address] Care Team Providers Care Test Inspection Engineer Name Role Phone Kj Merlos MD Primary Care Provider Encounter Details Date Type Department Care Team (Latest Contact Info) Description 01/15/2022 9:38 AM CDT - 01/15/2022 11:10 AM CDT Hospital Encounter [facility] 1 [place] [address] Robert Akers MD [address] [place] [address] [address] [place] [address] Discharge Disposition: Discharge to home or self care Social History Tobacco Use Types Packs/Day Years Used Date Smoking Tobacco: Former Cigarettes 0.2 12.1 0 12/14/2008 - 01/12/2021 Smokeless Tobacco: Never AUDIT-C Answer Date Recorded Q1: How often do you have a drink containing alcohol? Never 01/02/2022 Q2: How many drinks containi ng alcohol do you have on a typical day when you are drinking? Patient does not drink Frequency of Binge Drinking Not on file 12/14 Comments Yes Sex and Gender Information Value Date Recorded Sex Assigned at Not on file Legal Sex Female 3:07 AM GAMMA OPERATOR Gender Identity Not on file Sexual Orientation Not on file documented as of this encounter Last Filed Vital Signs Vital Sign Reading Time Taken Comments Blood Pressure 102/54 01/15/2022 10:51 AM CDT Pulse 75 01/15/2022 10:51 AM CDT Temperature - - Respiratory Rate - - Oxygen Saturation - - Inhaled Oxygen Concentration - - Weight - - Height - - Body Mass Index - - documented in this encounter Discharge Instructions * Attachments The following attachments cannot be sent through Care Everywhere. * Movement (Discharge Care) (Czech) documented in this encounter Medications at Time of Discharge HYDROcodone-aceta minophen (NORCO) 5-325 mg per tabletIndications :Pain Take 1 tablet by mouth every 4 (four) hours as needed for pain 12 tablet 01/24/2022 ibuprofen (ADVIL,MOTRIN) 600 mg tabletIndications :Cramps Take 1 tablet (600 mg total) by mouth every 6 (six) hours as needed for pain 30 tablet 1 01/24/2022 prenriana leung m qe-hath-hsrnn tabletIndications : Take 2 tablets by mouth daily documented as of this encounter Discharge Disposition Disposition Code Departure Means Destination Discharge to home or self care documented in this encounter Plan of Treatment Not on file documented as of this encounter Visit Diagnoses Not on filedocumented in this encounter Orders Discharge Count Last Ordered Date First Orde red Date DISCHARGE PATIENT 1 01/15/2022 documented in this encounter Care Teams Test Inspection Engineer Relationship Specialty Start Date End Date Kj Merlos MD [address] [address] PCP - General 11/03/21 documented as of this encounter
--- OUTSIDE RECORDS SUMMARY | 2024-04-17 14:00 | XMS_ITS | Encounter Summary ---
Author Organization [facility] Group Address [address] [facility] [address] [place] [address] Care Team Providers Care Painter Apprentice Name Role Phone Malcolm Burrell MD Primary Care Provider [phone] Reason for Referral * Occupational Therapy (Routine) - Closed Specialty Diagnoses / Procedures Referred By Contac t Referred To Contact Occupational Therapy Diagnoses Carpal tunnel syndrome of right wrist Trent Blanton MD Phone: tel: fax: [facility] [address] [address] Phone: tel: fax: Referral ID Status Reason Start Date Expiration Date V isits Requested Visits Authorized [id number] Closed Specialty Services Required 06/05/2018 12/15/2019 12 12 Question Answer PTRFR OT Evaluate and Treat Therapy options discussed with patient? Yes Location provided for therapy services is: Patient requested/Patient preferred Please select the performing region: External Order [171] Comments eval and treat Hand clinic 3xs a week for 3 weeks ATOR TECHNICIAN Reason for Visit * Reason Comments Post-op Encounter Details Date Type Department Care Team (Late st Contact Info) Description 06/05/2018 10:00 AM OPERATOR TECHNICIAN Office Visit [facility] [address] [place] [id number] Trent Blanton MD [address] [place] [address] Carpal tunnel syndrome of right wrist (Primary Dx) Social History Tobacco Use Types Packs/Day Years Used Date Smoking Tobacco: Unknown Comments Unknown Sex and Gender Information Value Date Recorded Sex Assigned at Not on file Legal Sex Female 3:07 AM OPERATOR TECHNICIAN Gender Identity Not on file Sexual Orientation Not on file documented as of this encounter Last Filed Vital Signs Vital Sign Reading Time Taken Comments Blood Pressure 122/80 06/05/2018 11:04 AM OPERATOR TECHNICIAN Pulse - - Temperature - - Respiratory Rate - - Oxygen Saturation - - Inhaled Oxygen Concentration - - Weight 91.6 kg (202 lb) 06/05/2018 11:04 AM OPERATOR TECHNICIAN Height 162.6 cm (5' 4 ) 06/05/2018 11:04 AM OPERATOR TECHNICIAN Body Mass Index 34.67 06/05/2018 11:04 AM OPERATOR TECHNICIAN documented in this encounter Progress Notes * Trent Blanton MD - 06/05/2018 10:00 AM CST Patient attends today for follow-up of her right wrist. She had some redness and swelling for whichshe was placed on antibiotics last week and this is subtle down very nicely. She still has some tenderness over the carpal tunnel incision but none over the 2nd incision. There is no evidence complication. Diagnosis-status post carpal tunnel release with hypersensitivity. Plan-physical therapy 3 times weekly over the next 3 weeks. Return to this office in 3 weeks. ATOR TECHNICIAN documented in this encounter Plan of Treatment Scheduled Referrals Name Type Priority Associated Diagnoses Order Schedule Ambulatory referral order to Occupational Therapy - Outpatient Referral Routine Carpal tunnel syndrome of right wrist 1 Occurrences starting 06/05/2018 until 12/03/2018 documented as of this encounter Visit Diagnoses Diagnosis Carpal tunnel syndrome of right wrist- Primary documented in this encounter Care Teams Painter Apprentice Relationship Specialty Start Date End Date Malcolm Burrell MD [address] [place] [address] PCP - General 08/19/16 11/02/21 documented as of this encounter
--- OUTSIDE RECORDS SUMMARY | 2024-04-17 14:00 | XMS_ITS | Encounter Summary ---
Author Organization [facility] Healthcare Address [address] [place] [address] Care Team Providers Care Notching Press Operator Name Role Phone Kj Merlos MD Primary Care Provider [phone] Reason for Referral * Consultation (Routine) - Closed Specialty Diagnoses / Procedures Referred By Ariana knight Referred To Contact Diabetes and Nutrition Services Diagnoses Gestational diabetes mellitus (GDM), antepartum, gestational diabetes method of control unspecified Robert Akers MD [address] [place] [address] DR CHRIS [address] [place] [address] Phone: tel: fax: [address] [address] Referral ID Status Reason Start Date Expiration Date V isits Requested Visits Authorized [id number] Closed Specialty Services Required 11/07/2021 12/07/2022 10 10 Question Answer [id number] No Service requested Diabetes Self-Management Education/Therapy (DSMT) + Medical Nutrition Therapy (MNT) [id number] Initial / Annual Follow-up MNT Please select the performing region: [facility] [144] # of visits: 10 Reason for Visit * Consultation (Routine) - Closed Specialty Diagnoses / Procedures Referred By Ariana knight Referred To Contact Diabetes and Nutrition Services Diagnoses Gestational diabetes mellitus (GDM), antepartum, gestational diabetes method of control unspecified Robert Akers MD [address] [place] [address] [address] CHRIS [address] [place] [address] Phone: tel: fax: [address] [address] Referral ID Status Reason Start Date Expiration Date V isits Requested Visits Authorized [id number] Closed Specialty Services Required 11/07/2021 12/07/2022 10 10 Encounter Details Date Type Department Care Team (Latest Contact Info) Description 11/07/2021 10:18 AM CDT - 11/07/2021 11:59 PM CDT Hospital Encounter [facility] Nutrition and Diabetic Education 1 [facility] [address] [place] [address] Florinda Ortega, RN Gestational diabetes mellitus (GDM), antepartum, gestational diabetes method of control unspecified Discharge Disposition: Discharge to home or self care Social History Tobacco Use Types Packs/Day Years Used Date Smoking Tobacco: Unknown Comments Unknown Sex and Gender Information Value Date Recorded Sex Assigned at Not on file Legal Sex Female 3:07 AM PHOTOGRAPHIC PROCESS ATTENDANT Gender Identity Not on file Sexual Orientation Not on file documented as of this encounter Medications at Time of Discharge sulfamethoxazole- trimethoprim (BACTRIM DS,SEPTRA DS) 800-160 mg per tablet Take 1 tablet by mouth 2 (two) times a day. 14 tablet 05/28/2018 01/02/2022 documented as of this encounter Discharge Disposition Disposition Code Departure Means Destination Discharge to home or self care documented in this encounter Progress Notes * Florinda Ortega, RN - 11/07/2021 10:30 AM CDT Esther Day [phone] Room/bed info not found No admitting provider for patient encounter. Pre-Education Assessment Time In: 1030 Time Out: 1130 Units of Service: 2 Visit Type: Initial Introduction: ID verified, Alert/ oriented x 4, Education provided with patient approval, Patient present for education Provider: Medical/Clay Puddler/PCP Treatment Prior To Admission: New Onset Knowledge Base: Beginner Home Testing: New onset, not applicable Adherence To: New onset, not applicable Exercise Habits: Active Hypoglycemia: Never Home Supplies: No assistance needed Diabetes Management Education Provided: Please see the Patient Education Activity Patient was seen today in office. She was receptive to education. She has not had gestational diabetes in her past pregnancies. We discussed gestational diabetes in detail including diet, exercise, support system, stress, and monitoring blood sugars. Reviewed diet. Patient was encouraged to eat well balanced meals and was instructed on myplate method. Discussed appropriate amount of carbohydrates to eat during meals and snacks as well as the importance of balancing meals/snacks. Discussed activity level. Patient is currently not participating in regular exercise outside of normal day to day activities. Patient was encouraged to incorporate exercise into daily routine. Reviewed the role stress can play in elevating blood glucose levels. Discussed support system and finding good outlets for stress. Patient voiced understanding. Patient was given a FanKave Verio Reflect glucometer and instructed on its use. Patient demonstrated proper use of glucometer. Patient was instructed to check her blood sugar first thing in the morning and 2 hours after meals. She will keep a blood sugar/food log and take this to her next appointment with Dr. Akers. Target blood sugars were discussed and what to do if outside targets. Patient set goals to: 1. Avoid skipping meals. Tends to skip lunch. Will eat at least a small meal here. 2. Will monitor blood glucose levels four times daily. Fasting and two hours after each meal. 3. Will avoid drinking highly sweetened drinks such as sweet tea and increase water intake. Florinda Ortega RN, Systems Developer 11/07/2021 1:21 PM documented in this encounter Plan of Treatment Scheduled Referrals Name Type Priority Associated Diagnoses Order Schedule Ambulatory referral to Diabetic Education & Nutrition Services Outpatient Referral Routine Gestational diabetes mellitus (GDM), antepartum, gestational diabetes method of control unspecified Once for 1 Occurrences starting 11/07/2021 until 11/07/2021 documented as of this encounter Visit Diagnoses Diagnosis Gestational diabetes mellitus (GDM), antepartum, gestational diabetes method of control unspecified documented in this encounter Care Teams Notching Press Operator Relationship Specialty Start Date End Date Kj Merlos MD [address] [address] PCP - General 11/03/21 documented as of this encounter
--- OUTSIDE RECORDS SUMMARY | 2024-04-17 14:00 | XMS_ITS | Encounter Summary ---
Author Organization [facility] Healthcare Address [address] [place] [address] Care Team Providers Care Pit Operator Name Role Phone Kj Merlos MD Primary Care Provider + [phone] Reason for Visit * Auth/Cert Specialty Diagnoses / Procedures Referred By Contac t Referred To Contact Diagnoses Third trimester Procedures na Referral ID Status Reason Start Date Expiration Date Visits Re quested Visits Authorized [id number] 1 1 Encounter Details Date Type Department Care Team (Late st Contact Info) Description 01/22/2022 1:56 PM CDT Anesthesia Event [facility] [address] [place] [id number] [place] [id number] [facility] [address] [place] [address] Travis Ca Jr., PARAMEDIC RN [address] [facility] [address] [place] [address] Anesthesia Record Procedure Summary Procedure Name Responsible Anesthesiologist Anesthesia Start Time Anesthesia Stop Time Labor Analgesia Hawk Stuart MD 01/22/22 1356 01/22/222038 Events Date Time Event Comment 01/22/2022 1010 1348 Face Time 1356 An Start 1356 Time out - Regional 1408 Epidural Placed 1421 Face Time 2038 Handoff to RN I completed my handoff to the receiving nurse during which we: 1. Patient identified 2. Responsible provider identified 3. Pertinent medical history reviewed 4. Procedure type and surgical course discussed 5. Intraoperative anesthetic management and any significant issues discussed 6. Expectations and concerns for postop period discussed 7. Questions solicited from receiving nurse 8. Patient disposition at the time of handoff: No value filed. 2038 An Stop Meds Name Total EPINEPHrine 1:200,000 - lidocaine 2 % PF 5 mL lidocaine 1 % PF 3 mL * Agents No agents on file. * Blood No blood administrations on file. Lines, Drains, and Airways Type Details Placement Removal Peripheral IV Placement Date: 01/12 05/05; Placement Time: 0700; Catheter Size: 18 G; Orientation: Left, Posterior; Location: Forearm; Site Prep: Chlorhexidine; Inserted by: Morelia Driver RN; Insertion Attempts: 1; Patient Tolerance: Tolerated well; Removal Date: 01/23/22; Removal Time: 634; Removal Reason: Therapy completed 01/22/22 0700 by Annel Driver RN 01/23/22634 by Annel Driver RN Epidural Placement Date: 01/12 05/05; Placement Time: 1424 (created via procedure documentation); 01/22/22; 229901/22/22 142 by Travis Ca Jr., PARAMEDIC RN 01/22/222299 by Fouzia Dangelo, GRETA Urethral Catheter Placement Date: 01/12 05/05; Placement Time: 1454; Inserted by: Morelia Driver RN; Type: Latex; Balloon Size: 10 mL; Urine Returned: Yes; Removal Date: 01/22/22; Removal Time: 2000; Removal Reason: Therapy complete 01/22/22 145 by Annel Driver RN 01/22/222000 by Fouzia Dangelo, GRETA documented in this encounter Social History Tobacco Use Types Packs/Day Years Used Date Smoking Tobacco: Former Cigarettes 0.2 12.1 0 12/14/2008 - 01/12/2021 Smokeless Tobacco: Never Social Connection and Isolat ion Panel [NHANES] Answer Date Recorded In a typical week, how many times do you talk on the phone with family, friends, or neighbors? More than three times a week 01/23/2022 How often do you get togethe r with friends or relatives? Twice a week 01/23/2022 How often do you attend chur ch or gnosticism services? Never 01/23/2022 Do you belong to any clubs o r organizations such as adventism groups, unions, fraternal or athletic groups, or school groups? No 01/23/2022 How often do you attend meet ings of the clubs or organizations you belong to? Never 01/23/2022 Are you , , di vorced, , never , or living with a partner? 01/23/2022 AUDIT-C Answer Date Recorded Q1: How often do you have a drink containing alcohol? Never 01/22/2022 Q2: How many drinks containi ng alcohol do you have on a typical day when you are drinking? Patient does not drink Frequency of Binge Drinking Not on file 01/12 Overall Financial Resource Strain (CARDIA) Answe r Date Recorded How hard is it for you to pa y for the very basics like food, housing, medical care, and heating? Not very hard 01/23/2022 Hunger Vital Sign Answer Date Recorded Within the past 12 months, y ou worried that your food would run out before you got the money to buy more. Never true 01/24/20 22 Within the past 12 months, t he food you bought just didn't last and you didn't have money to get more. Never true 01/23/2022 PRAPARE - Transportation Answer Date Re corded In the past 12 months, has l ack of transportation kept you from medical appointments or from getting medications? No 01/12 In the past 12 months, has l ack of transportation kept you from meetings, work, or from getting things needed for daily living? No 01/23/2022 Housing Stability Vital Sign Answer Todd e Recorded In the last 12 months, was t here a time when you were not able to pay the mortgage or rent on time? Yes 01/23/2022 In the last 12 months, how many places have you lived? 1 01/23/2022 In the last 12 months, was t here a time when you did not have a steady place to sleep or slept in a long term (including now)? 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 Gender Identity Not on file Sexual Orientation Not on file documented as of this encounter OR Notes * Anesthesia Postprocedure Evaluation - Andre Boyer CRNA - 01/22/2022 8:39 PM CDT Patient: Esther Day Procedure Summary Date: 01/22/22 Room / Location: Anesthesia Start: 1355 Anesthesia Stop: 2038 Procedure: Labor Analgesia Diagnosis: Scheduled Providers: Responsible Provider: Hawk Stuart MD Anesthesia Type: epidural ASA Status: 2 Anesthesia Type: epidural Last vitals BP 130/81 Pulse 68 Temp 36.5 ??C (97.7 ??F) (Temporal) Resp 18 SpO2 91% Anesthesia Post Evaluation Patient location during evaluation: floor Level of consciousness: fully awake Pain management: adequate Airway patency: adequate Cardiovascular status: acceptable Respiratory status: acceptable Hydration status: acceptable Nausea/Vomiting status: none No notable events documented. * Anesthesia Procedure Notes - Travis Ca Jr., CRNA - 01/22/2022 2:24 PM CDTAssociated Order(s): Epidural Block Epidural Block Patient location: L&D End time: 01/22/2022 2:08 PM Reason for block: labor analgesia Staff: Placed by: PARAMEDIC RN: Travis Ca Jr., CRNA Procedure prep: Preprocedure checklist: patient identified, procedure contraindications assessed, procedure consentobtained, surgical consent, IV checked, risks, benefits and alternatives discussed, monitors and equipment checked and timeout performed Patient Position: sitting Procedure performed while patient: awake Monitoring: oximetry and blood pressure Prep solution: chlorhexadine/alcohol PPE: provider hat/mask, sterile gloves and sterile drape Skin infiltrated with lidocaine 1%: yes Epidural: Approach: midline Location: L3-4 Number of attempts:1 Epidural needle: Injection technique: JIM saline Needle type: Tuohy Needle gauge: 17 G Needle length: 9 cm Loss of resistance: 6 cm Catheter: Catheter type: multi-orifice. Catheter at skin depth: 12 cm Negative aspiration of blood: no Negative aspiration of CSF: no Test dose: negative Assessment: Sensory level - left: T8 Sensory level - right: T8 Events: patient tolerated procedure well with no complications Additional comments: Epidural placed by Travis Ca CRNA * Anesthesia Preprocedure Evaluation - Travis Ca Jr., CRNA - 01/22/2022 9:40 AM CDT Images from the original note were not included. Anesthesia Evaluation Esther Day is a 31 y.o. female * No procedures listed * * No Diagnosis Codes entered * HISTORY Past Medical History Neurological Neuro/Psych system: negative Cardiovascular Cardiac system: negative Respiratory Pertinent negatives: non-smoker Comments: Former smoker. 1.5 pack years. Quit smoking 01/12/2021. COVID+ 01/15/2022 Hepatic / Heme + History of anemia Gastrointestinal + GERD (occaisonal) Renal / Renal/ system: negative Musculoskeletal/Pain Musculoskeletal/Pain system: negative Endocrine / Other + Diabetes mellitus (gestational) Outpatient insulin use: none. + Obesity (BMI >30)- morbid obesity (BMI>40). + Infectious disease (COVID+ 01/15/2022) Functional Capacity Functional capacity: 6-10 METs Day of Surgery assessments + Possibility of assessed - known to be . Patient Active Problem List Diagnosis ??? Third trimester History reviewed. No pertinent past medical history. History reviewed. No pertinent surgical history. OB History 3 Para 2 Term 2 AB Living 2 SAB IAB Ectopic Multiple Live Births 2 Allergies Allergen Reactions ??? Codeine Hives and Itching ??? Amoxicillin-Pot Clavulanate Rash ??? Cefaclor Rash Med List Status: Nurse Complete Set By: Annel Driver RN at 01/22/2022 7:00 AM Taking? Last Dose Start Date End Date Provider vivek.vits,riana,jyw-[id number]-tdltm tablet 01/22/2022 -- -- ProviderSunita MD Current Facility-Administered Medications: ??? Carrier Fluids for Secondary Infusion - 0.9% Sodium Chloride, 30 mL, intravenous, PRN ??? clindamycin (CLEOCIN) 900 mg/50 mL in dextrose 5% (premix) 900 mg, 900 mg, intravenous, Once PRN ??? Lactated Ringer's (LR) bolus 1,000 mL, 1,000 mL, intravenous, Once PRN ??? Lactated Ringer's (LR) bolus 500 mL, 500 mL, intravenous, PRN ??? Lactated Ringer's (LR) infusion, 125 mL/hr, intravenous, Continuous, Last Rate: 125 mL/hr at 01/22/22 0700, 125 mL/hr at 01/22/22 0700 ??? ondansetron ODT (ZOFRAN-ODT) disintegrating tablet 4 mg, 4 mg, oral, Q6H PRN OR ondansetron(ZOFRAN) injection 4 mg, 4 mg, intravenous, Q6H PRN ??? oxytocin 30 unit/500 mL (0.06 unit/mL) in sodium chloride 0.9% (premix) solution, 0.5-40 milliunits/min, intravenous, Titrated, Last Rate: 6 mL/hr at 01/22/22 0825, 6 milliunits/min at 01/22/22 0825 ??? sodium chloride 0.9% flush 0.5-20 mL, 0.5-20 mL, intra-catheter, Q8H NIC, 10 mL at 01/22/22 0700 ??? sodium chloride 0.9% flush 0.5-20 mL, 0.5-20 mL, intra-catheter, PRN ??? terbutaline (BRETHINE) injection 0.125 mg, 0.125 mg, intravenous, Once PRN OR terbutaline (BRETHINE) injection 0.25 mg, 0.25 mg, subcutaneous, Once PRN Social History Tobacco Use Smoking Status Former ??? Packs/day: 0.15 ??? Years: 10.00 ??? Pack years: 1.50 ??? Types: Cigarettes ??? Start date: 12/14/2008 ??? Quit date: 01/12/2021 ??? Years since quittin.0 Smokeless Tobacco Never Alcohol Use: Not At Risk ??? Frequency of Alcohol Consumption: Never ??? Average Number of Drinks: Patient does not drink ??? Frequency of Binge Drinking: Not on file Substance and Sexual Activity Drug Use Not Currently History reviewed. No pertinent family history. PAT Physical Exam Airway Exam: Mallampati: III Cervical ROM: FROM TM distance: >4 Cardiovascular Exam: Rate: regular Rhythm: regular Pulmonary Exam: LCTA, bilat Dental Exam: Appears intact Abdominal exam: (gravid) Vitals: 01/22/22 0700 01/22/22 0735 01/22/22 0821 BP: 133/70 128/72 Pulse: 80 74 Resp: 18 Temp: 36.3 ??C (97.4 ??F) PT: No results found for requested labs within last 720 hours. INR: No results found for requested labs within last 720 hours. APTT: No results found for requested labs within last 720 hours. Hgb A1C: No results found for requested labs within last 720 hours. CBC RBC: 01/22/2022: 4.22 M/cumm RDW: No results found for requested labs within last 720 hours. MCHC: 01/22/2022: 34.0 g/dL MCH: 01/22/2022: 25.6 pg (L) MCV: 01/22/2022: 75.4 fL (L) Hct: 01/22/2022: 31.8 % (L) Hgb: 01/22/2022: 10.8 g/dL (L) WBC: 01/22/2022: 9.8 K/cumm MPV: 01/22/2022: 10.8 fL Platelets: 01/22/2022: 312 K/cumm RDW CV: 01/22/2022: 13.5 % RDW Sd: 01/22/2022: 36.2 fL BMP Glucose: No results found for requested labs within last 720 hours. Calcium: No results found for requested labs within last 720 hours. Sodium: No results found for requested labs within last 720 hours. Potassium: No results found for requested labs within last 720 hours. CO2: No results found for requested labs within last 720 hours. Chloride: No results found for requested labs within last 720 hours. BUN: No results found for requested labs within last 720 hours. Creatinine: No results found for requested labs within last 720 hours. DOS Physical Exam Medical history, medications, and allergies reviewed. Attestation: This PAT evaluation 01/22/2022. Airway Exam: Mallampati: II Cervical ROM: FROM TM distance: >4 Cardiovascular Exam: Rate: regular Rhythm: regular Pulmonary Exam: LCTA, bilat Abdominal Exam: (gravid) Current state: Patient's current state is cooperative. Anesthesia Plan ASA 2 My patient is approved for the Anesthesia Controlled Medication protocol when under care of a PARAMEDIC RN Planned anesthesia: Epidural Informed Consent: Discussed plan with PARAMEDIC RN and attending. Anesthesia plan and risks discussed with patient. Consent and Attending signature: I and/or my designee have discussed the anesthesia plan, benefits, possible alternatives, parental presence at time of induction (if indicated), and clinically relevant risks that may include dental injury, unintentional awareness, and/or other complications. The patient and/or parent/legal guardian understand, and agree to proceed. All questions answered. documented in this encounter Plan of Treatment Not on file documented as of this encounter Procedures Procedure Name Priority Date/Time Associated Diagnosis Comments ANESTHESIA EPIDURAL BLOCK Routine 01/22/2022 2:24 PM CDT documented in this encounter Results * Epidural Block (01/22/2022 2:24 PM CDT) Narrative Travis Ca Jr., CRNA - 01/22/2022 2:24 PM CDT Traivs Ca Jr., CRNA ? 01/22/2022 ??2:25 PM Epidural Block Patient location: L&D End time: 01/22/2022 2:08 PM Reason for block: labor analgesia Staff: Placed by: PARAMEDIC RN: Travis Ca Jr., CRNA Procedure prep: Preprocedure checklist: patient identified, procedure contraindications assessed, procedure consent obtained, surgical consent, IV checked, risks, benefits and alternatives discussed, monitors and equipment checked and timeout performed Patient Position: sitting Procedure performed while patient: awake Monitoring: oximetry and blood pressure Prep solution: chlorhexadine/alcohol PPE: provider hat/mask, sterile gloves and sterile drape Skin infiltrated with lidocaine 1%: yes Epidural: Approach: midline Location: L3-4 Number of attempts:1 Epidural needle: Injection technique: JIM saline Needle type: Tuohy Needle gauge: 17 G Needle length: 9 cm Loss of resistance: 6 cm Catheter: Catheter type: multi-orifice. Catheter at skin depth: 12 cm Negative aspiration of blood: no Negative aspiration of CSF: no Test dose: negative Assessment: Sensory level - left: T8 Sensory level - right: T8 Events: patient tolerated procedure well with no complications Additional comments: Epidural placed by Travis Ca CRNA Hawk Stuart MD ANESTHESIA ORDERABLES Darlene l Result documented in this encounter Visit Diagnoses Not on filedocumented in this encounter Administered Medications Inactive Administered Medications - up to 3 most recent administrations Medication Order MAR Action Action Date Dose Rate Site lidocaine PF (XYLOCAINE) 10 mg/mL (1 %) preservative free injection other, As needed, Starting on Fri01/22/22 at 1412, Anesthesia Intra-op Given 01/22/2022 2:12 PM CDT 3 mL lidocaine-EPINEPHrine (XYLOCAINE with EPI) 2 %-1:200,000 preservative free injection epidural, As needed, Starting on Fri01/22/22 at 1408, Anesthesia Intra-op, Indications: Administration of Local AnesthesiaIndications:Administration of Local Anesthesia Given 01/22/2022 2:10 PM CDT 3 mL Given 01/22/2022 2:08 PM CDT 2 mL documented in this encounter Additional Health Concerns Infection Onset Date Last Indicated Resolved Time COVID19 Comment:Eligible for COVID: Recovered status 01/26/22. SANJEEV Eddy 01/15/2022 01/15/2022 02/03/2022 3:05 AM C DT documented as of this encounter Care Teams Pit Operator Relationship Specialty Start Date End Date Kj Merlos MD [address] [address] PCP - General 11/03/21 documented as of this encounter
--- OUTSIDE RECORDS SUMMARY | 2024-04-17 14:00 | XMS_ITS | Encounter Summary ---
Author Organization [facility] Medical Group Address [address] [place] [address] Care Team Providers Care Grocery Manager Name Role Phone Malcolm Burrell MD Primary Care Provider [phone] Encounter Details Date Type Department Care Team (Late st Contact Info) Description 06/05/2018 Orders Only [facility] [address] [place] [address] Trent Blanton MD [address] [place] [address] Carpal tunnel syndrome of right wrist Social History Tobacco Use Types Packs/Day Years Used Date Smoking Tobacco: Unknown Comments Unknown Sex and Gender Information Value Date Recorded Sex Assigned at Not on file 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
--- OUTSIDE RECORDS SUMMARY | 2024-04-17 14:00 | XMS_ITS | Clinical Summary ---
Author Organization [facility] [address] Address [address] [place] [address] Phone Care Team Providers Care Cash Applications Manager Name Role Phone Kj Merlos MD Primary Care Provider [phone] Allergies Active Allergy Reactions Criticality Noted Date Comments Amoxicillin-Pot Clavulanate Rash Medium 03/11/20 16 Cefaclor Rash Medium 03/11/2016 Codeine Hives,Itching High 12/25/2018 Medications prenat.vits,riana ,kad-ejkv-klrzg tabletIndicatio ns: Take 2 tablets by mouth daily Active HYDROcodone-lesa taminophen (NORCO) 5-325 mg per tabletIndicatio ns:Pain Take 1 tablet by mouth every 4 (four) hours as needed for pain 12 tablet 01/24/2022 Active ibuprofen (ADVIL,MOTRIN) 600 mg tabletIndicatio ns:Cramps Take 1 tablet (600 mg total) by mouth every 6 (six) hours as needed for pain 30 tablet 1 01/24/2022 Active Active Problems Problem Noted Date Diagnosed Date Third trimester 01/22/2022 Immunizations Name Administration Dates Next Due Influenza, Quadrivalent, Spl it, Preservative Free, Intramuscular 01/24/2022 MMR 01/24/2022(Deferred: No longer n eeded) Social History Tobacco Use Types Packs/Day Years Used Date Smoking Tobacco: Former Cigarettes 0.2 12.1 0 12/14/2008 - 01/12/2021 Smokeless Tobacco: Never Tobacco Cessation:Counseling Given: Not Answered Social Connection and Isolat ion Panel [NHANES] Answer Date Recorded In a typical week, how many times do you talk on the phone with family, friends, or neighbors? More than three times a week 01/23/2022 How often do you get togethe r with friends or relatives? Twice a week 01/23/2022 How often do you attend chur ch or worship services? Never 01/23/2022 Do you belong to [...] in a nursing home (including now)? No 01/23/2022 Education Answer Date Recorded What is the highest level of school you have completed or the highest degree you have received? 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 Gender Identity Not on file Sexual Orientation Not on file Obstetrics History Para Term AB IAB SAB Ectopic Multiple Livin g Live Births 3 3 3 0 3 3 Date Outcome GA Total Labor Labor/2nd/3rd Weight Sex Type Anes PTL Onreen A1 A5 Name Clin 2013 Term 3.033 kg (6 lb 11 oz) F Livin g Carly Canno n Delivery Location:[facility] 2016 Term 39w 5d 2h 13m 2h 06m/0h 07m 3.28 kg (7 lb 3.7 oz) F Epidur al N Livin g 8 9 BUITRAGO R, UNKNOW N A (ASHLE Y) Jake villanueva MD Complications:None Delivery Location:[facility]) 2021 Term 39w 6d 3h 47m 3h 17m/0h 27m/0h 03m 2.924 kg (6 lb 7.1 oz) F Vag-S pont Epidur al N Livin g 9 9 BUITRAGO R,GIRL FRANCO Del Castillo r, Nagi corey MD Complications:None Delivery Location:[facility] ([facility]) Last Filed Vital Signs Vital Sign Reading Time Taken Comments Blood Pressure 136/72 01/24/2022 8:03 AM CDT Pulse 69 01/24/2022 8:03 AM CDT Temperature 36.6 ??C (97.8 ??F) 01/24/2022 8:03 AM CD T Respiratory Rate 17 01/24/2022 8:03 AM CDT Oxygen Saturation 99% 01/23/2022 3:45 AM CDT Inhaled Oxygen Concentration - - Weight 99.3 kg (219 lb) 01/22/2022 7:45 AM CDT Height 152.4 cm (5') 01/22/2022 7:45 AM CDT Body Mass Index 42.77 01/22/2022 7:45 AM CDT Plan of Treatment Health Maintenance Due Date Last Done Comments Cervical Cancer Screening 1988 Depression Screening 1988 Hepatitis C Screening 1988 Varicella Vaccines (1 of 2 - 13+ 2-dose series) 2001 Hepatitis B Screening 2006 Regular Well Visit/Exam 18-64 2006 Influenza Vaccine (#1) 2023 , 12/29/2020, 02/18/2020, Additional history exists DTaP/Tdap/Td Vaccine (8 - Td or Tdap) 04/02/2027 04/02/2017, 03/04/2017, 12/13/1993, Additional history exists Pneumococcal vaccine <65 Aged Out 12/29/2020 No longer eligible based on patient's age to complete this topic HPV Vaccines Aged Out No longer eligi ble based on patient's age to complete this topic Insurance [facility] Advance Directives For more information, please contact: [phone] * Full Code (Latest Code Status on File) Date Activated Date Inactivated Comments 01/22/2022 10:18 PM 01/24/2022 5:59 PM * Full Code Date Activated Date Inactivated Comments 01/22/2022 6:33 AM 01/22/2022 10:18 PM Full CPR in case of cardiopulmonary arrest Care Teams Cash Applications Manager Relationship Specialty Start Date End Date Kj Merlos MD [address] [address] PCP - General 11/03/21
--- OUTSIDE RECORDS SUMMARY | 2024-04-17 14:00 | XMS_ITS | Encounter Summary ---
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 ??Testing performed by the [facility] Molecular Infectious Disease Laboratory. The 2019-Novel Coronavirus Assay (COVID-19) Real Time RT-PCR assay is for in vitro diagnostic use under FDA emergency use authorization only. A negative RT-PCR result does not preclude infection with COVID-19 and should not be used as the sole basis for treatment or other patient management decisions. ??Additional sample types have been validated according to CLIA regulations. ?? Current Interpretive Data was last revised on May 18, 2020. Testing performed by: [facility], [address] [facility], [place]., [address] Nasopharyngeal 01/15/2022 9: 24 AM CDT 01/15/2022 1:17 PM CDT Narrative MILENA WARD ([place]) - 01/16/2022 1:55 AM CDT Is the patient experiencing any symptoms consistent with COVID (eg. Fever, cough, shortness of breath)?->No What is the reason for testing?->Screening prior to scheduled??procedure or surgery??(Batched) Robert Akers MD LAB MICROBIOLOGY - GEN ERAL ORDERABLES Final Result MILENA WARD ([place]) [address] [facility] Department [place] [address] documented in this encounter Visit Diagnoses Diagnosis Encounter for preadmission testing documented in this encounter Care Teams Sheep Sorter Relationship Specialty Start Date End Date Kj Merlos MD [address] [address] PCP - General 11/03/21 documented as of this encounter
--- OUTSIDE RECORDS SUMMARY | 2024-04-17 14:00 | XMS_ITS | Encounter Summary ---
Author Organization [facility] Address [address] [place] [address] Care Team Providers Care Hard Metals Engraver Hand Name Role Phone Malcolm Burrell MD Primary Care Provider [phone] Reason for Visit * Reason Comments Post-op Encounter Details Date Type Department Care Team (Late st Contact Info) Description 05/08/2018 9:50 AM MANAGER FINANCIAL REPORTING Office Visit [facility] [address] [place] [id number] Trent Blanton MD [address] [address] Carpal tunnel syndrome of right wrist (Primary Dx) Social History Tobacco Use Types Packs/Day Years Used Date Smoking Tobacco: Unknown Comments Unknown Sex and Gender Information Value Date Recorded Sex Assigned at Not on file Legal Sex Female 3:07 AM MANAGER FINANCIAL REPORTING Gender Identity Not on file Sexual Orientation Not on file documented as of this encounter Last Filed Vital Signs Vital Sign Reading Time Taken Comments Blood Pressure 122/80 05/08/2018 9:49 AM MANAGER FINANCIAL REPORTING Pulse - - Temperature - - Respiratory Rate - - Oxygen Saturation - - Inhaled Oxygen Concentration - - Weight 91.6 kg (202 lb) 05/08/2018 9:49 AM MANAGER FINANCIAL REPORTING Height 162.6 cm (5' 4 ) 05/08/2018 9:49 AM MANAGER FINANCIAL REPORTING Body Mass Index 34.67 05/08/2018 9:49 AM MANAGER FINANCIAL REPORTING documented in this encounter Progress Notes * Trent Blanton MD - 05/08/2018 9:50 AM CST Patient returns today 10 days postop. She is having no numbness or tingling but is still having some aching pain in the incisions. Incision is benign. Steri-Strips have been removed. There is no wound separation or erythema/drainage. Neurovascular status is intact. There is no evidence of complication. Diagnosis-status post carpal tunnel release/excision lipoma. Kkjj-[id number]-Ikuma removal. Mobilize as tolerated. No need for formal physical therapy. Return to this office in 4 weeks. GER FINANCIAL REPORTING documented in this encounter Plan of Treatment Not on file documented as of this encounter Visit Diagnoses Diagnosis Carpal tunnel syndrome of right wrist- Primary documented in this encounter Care Teams Hard Metals Engraver Hand Relationship Specialty Start Date End Date Malcolm Burrell MD [address] [place] [address] PCP - General 08/19/16 11/02/21 documented as of this encounter
--- OUTSIDE RECORDS SUMMARY | 2024-04-17 14:00 | XMS_ITS | Encounter Summary ---
Author Organization [facility] Address [address] [place] [address] Care Team Providers Care Renal Dietitian Name Role Phone Malcolm Burrell MD Primary Care Provider [phone] Encounter Details Date Type Department Care Team (Late st Contact Info) Description 05/01/2018 Telephone [facility] [address] [place] [address] Uyen Palma RN Social History Tobacco Use Types Packs/Day Years Used Date Smoking Tobacco: Unknown Comments Unknown Sex and Gender Information Value Date Recorded Sex Assigned at Not on file Legal Sex Female 3:07 AM SHIP BOAT OR BARGE MATE Gender Identity Not on file Sexual Orientation Not on file documented as of this encounter Miscellaneous Notes * Telephone Encounter - Uyen Palma RN - 05/01/2018 1:33 PM CST Pt further advised to stop pain meds in case she is allergic to it. She voices understanding. BOAT OR BARGE MATE * Telephone Encounter - Trent Blanton MD - 05/01/2018 1:02 PM SHIP BOAT OR BARGE MATE Thank you BOAT OR BARGE MATE * Telephone Encounter - Uyen Palma RN - 05/01/2018 12:47 PM CST FYI Pt calling, had carpal tunnel surgery on Friday. Doing well with that. Pt states she noticedfacial swelling et a rash on her chest that started this am, denies breathing or swallowing problems. Pt advised to use OTC Benadryl et go to ER if she worsens. She voices understanding. BOAT OR BARGE MATE documented in this encounter Plan of Treatment Not on file documented as of this encounter Visit Diagnoses Not on filedocumented in this encounter Care Teams Renal Dietitian Relationship Specialty Start Date End Date Malcolm Burrell MD [address] [place] [address] PCP - General 08/19/16 11/02/21 documented as of this encounter
--- OUTSIDE RECORDS SUMMARY | 2024-04-17 14:00 | XMS_ITS | Encounter Summary ---
Author Organization [facility] Healthcare Address [address] [place] [address] Care Team Providers Care Jewelry Mechanic Name Role Phone Kj Merlos MD Primary Care Provider [phone] Reason for Referral * (Routine) - Closed Specialty Diagnoses / Procedures Referred By Ariana knight Referred To Contact Diagnoses Encounter for supervision of other normal in third trimester Procedures Labor Induction - Robert Akers MD [address] [place] [address] DR CHRIS RIDER [address] [place] [id number] Phone: tel: fax: Referral ID Status Reason Start Date Expiration Date Visits Re quested Visits Authorized [id number] Closed 01/10/2022 02/09/2023 1 1 Reason for Visit * Reason Comments Scheduled Induction * Auth/Cert Specialty Diagnoses / Procedures Referred By Ariana knight Referred To Contact Diagnoses Third trimester Procedures na Referral ID Status Reason Start Date Expiration Date Visits Re quested Visits Authorized [id number] 1 1 Encounter Details Date Type Department Care Team (Latest Contact Info) Description 01/22/2022 6:26 AM CDT - 01/24/2022 1:50 PM CDT Hospital Encounter [facility] [address] [place] [address] Robert Akers MD [address] [place] [address] DR CHRIS Fuchs [facility] [address] [place] [id number] Encounter for supervision of other normal in third trimester Discharge Disposition: Discharge to home or self [...] often do you attend chur ch or yazidi services? Never 01/23/2022 Do you belong to any clubs o r organizations such as methodist groups, unions, fraternal or athletic groups, or [...] place to sleep or slept in a longterm (including now)? No 01/23/2022 Education Answer Date Recorded What is the highest level of school you have completed or the highest degree you have received? 10th grade 01/23/2022 Comments No Sex and Gender Information Value Date Recorded Sex Assigned at Not on file Legal Sex Female 3:07 AM EKG MONITOR TECH Gender Identity Not on file Sexual Orientation [...] Mass Index 42.77 01/22/2022 7:45 AM CDT documented in this encounter Discharge Instructions * Discharge Instr - Diet* Shamika Cardona - 01/22/2022 12:34 PM CDT Recommend to eat a generally Healthy diet with foods that include a variety of fruits, vegetables, whole-grain breads, low-fat dairy products, beans, lean meats, and fish. Limit fast food, sugary drinks, excess salt, and desserts. Limit sugary drinks like lemonade, regular soda, Gatorade, and sweettea and drink water throughout the day. Call [phone] to speak with a dietitian about any diet related concerns. Additional resources are available online from the Academy of Nutrition and Dietetics at www.eatright.org documented in this encounter Medications at Time of Discharge HYDROcodone-aceta minophen (NORCO) 5-325 mg per tabletIndications :Pain Take 1 tablet by mouth every 4 (four) hours as needed for pain 12 tablet 01/24/2022 ibuprofen (ADVIL,MOTRIN) 600 mg tabletIndications :Cramps Take 1 tablet (600 mg total) by mouth every 6 (six) hours as needed for pain 30 tablet 1 01/24/2022 prenat.vits,riana,m [id number] tabletIndications : Take 2 tablets by mouth daily documented as of this encounter Ordered Prescriptions Prescription Sig Dispense Quantity Refills Last Filled Start Date End Date ibuprofen (ADVIL,MOTRIN) 600 mg tabletIndications:C ramps Take 1 tablet (600 mg total) by mouth every 6 (six) hours as needed for pain 30 tablet 1 01/24/2022 HYDROcodone-acetami nophen (NORCO) 5-325 mg per tabletIndications:P ain Take 1 tablet by mouth every 4 (four) hours as needed for pain 12 tablet 01/24/2022 documented in this encounter Discharge Disposition Disposition Code Departure Means Destination Discharge to home or self care documented in this encounter Progress Notes * Robert Akers MD - 01/24/2022 11:31 AM CDT Post day # 2 Status post S: feeling Ok, pain control adequate, good progress Bonding well with baby O: afebrile, Vitals stable, lochia appropriate Chest: good air movement Cv: RRR Abd: soft, NT, fundus firm Ext: (-) A/P Doing well, no big issues Plan discharge today F/u in office in 2 weeks * Annmarie Mac MD - 01/23/2022 12:42 PM CDT Day #1 No complaints. No problems breathing. BP 141/77 Pulse 73 Temp 36.6 ??C (97.9 ??F) (Temporal) Resp 18 Ht 152.4 cm (5') Wt 219 lb(99.3 kg) LMP 04/18/2021 SpO2 99% Yes BMI 42.77 kg/m?? Pt sitting in bed with her kids around her. Recent Labs Lab Units 01/23/22 0613 01/22/22 0653 WBC K/cumm 13.5* 9.8 HEMOGLOBIN g/dL 9.8* 10.8* HEMATOCRIT % 29.3* 31.8* PLATELETS K/cumm 302 312 Lab Results Component Value Date ABORH B Positive 01/22/2022 Assessment: Doing well. Plan: Continue care. Anemia- to iron D/c in am if she is still stable. Annmarie Mac MD * DulceShamika - 01/22/2022 12:34 PM CDT Nutrition Assessment Reason for Assessment: Initial Nutrition Assessment, Consult/Referral, and Diet Education Encounter Date: 01/22/22 12:34 PM Nutrition Assessment and Plan: Patient is a 31 y.o. female. Admit Dx: Third trimester [Z34.93]. Admitted on 01/22/2022, current LOS is 0 days. Consult for GDM. Para 3 2. Plan breastfeed. Attempted to breastfeed second child, but was unable d/t latching difficulties. Discussed support options and consult available for support if needed. Pt voiced understanding. GDM edu provided. Discussed having gluc levels checked at 6 weeks appt. Pediatric Nutrition Screen What diet do you follow at home?: Regular Adult Malnutrition Scoring Tool (MST) What diet do you follow at home?: Regular Have You Recently Lost Weight Without Trying?: No Have you been eating poorly because of a decreased appetite?: No Malnutrition Screening Tool (MST) Score: 0 Current diet order: Adult Diet Clear Liquid Nutrition Diagnosis 1: Food and nutrition-related knowledge deficit Related to: Lack of education Evidenced by: Patient interview Interventions: Education Monitoring and Evaluation: Discharge plans, Diet-related questions, Labs, Plan of care Goals: Patient/caregiver able to teach back understanding of role of diet in disease process prior to discharge Wt Readings from Last 10 Encounters: 01/22/22 99.3 kg (219 lb) 06/05/18 91.6 kg (202 lb) 05/08/18 91.6 kg (202 lb) 01/19/18 91.6 kg (202 lb) 12/31/17 91.6 kg (202 lb) Estimated needs: Total Kcal/kg Estimated Needs : 2284.77 based on Kcal/k. Type of Weight Used for Estimated Kcals: Current Total Protein Estimated Needs (gm): 109.27 Protein Needs Based on g/k.1 Type of Weight Used forEstimated Protein : Current. Total Fluid Estimated Needs: 2284.77 Fluid Needs Based on : 1 ml/kcal. Objective Anthropometrics Weight: 99.3 kg (219 lb) Admission Weight : 99.3 kg Weight Change: 7.71 kg (17.00 lbs) IBW/kg (Calculated) : 45.4 kg Height: 152.4 cm (5') Weight in (lb) to have BMI = 25: 127.7 BMI (Calculated): 42.8 BMI Classification: () 3 Day I/O Summary No intake/output data recorded. Temp: 36.6 ??C (97.9 ??F) History reviewed. No pertinent past medical history. Medications and Lab Review: Scheduled Meds: sodium chloride 0.9%, 0.5-20 mL, intra-catheter, Q8H NIC Continuous Infusions: Lactated Ringer's, 125 mL/hr, Last Rate: 125 mL/hr (01/22/22 0700) oxytocin, 0.5-40 milliunits/min, Last Rate: 10 milliunits/min (01/22/22 1150) No results found for: SODIUM, POTASSIUM, BUNSER, CREATININE, PHOS, ALBUMIN, MAGNESIUM, CALCIUM, HDL, LDL, CHOLESTEROL, TRIGLYCERIDE No results found for: HGBA1C Nursing Assessment: Karlos Scale Score: 22 Diet Instructions Recommend to eat a generally Healthy diet with foods that include a variety of fruits, vegetables, whole-grain breads, low-fat dairy products, beans, lean meats, and fish. Limit fast food, sugary drinks, excess salt, and desserts. Limit sugary drinks like lemonade, regular soda, Gatorade, and sweettea and drink water throughout the day. Call [phone] to speak with a dietitian about any diet related concerns. Additional resources are available online from the Academy of Nutrition and Dietetics at www.eatright.org Nutrition Follow-Up : 01/29/22 (GDM) MARYJANE Strong documented in this encounter Procedure Notes * Robert Akers MD - 01/22/2022 8:46 PM CDT Procedures Delivery note Pre op dx: 1) 39 week 2) gestational diabetes ( A1) Post op dx: same Procedure: / 2nd degree laceration with repair OB: Luda Akers MD, Eduardo Martínez MD Anesth: epidural EBL: 200cc Comp: none Findings: delivery of vigorous female infant from OA position APGARs and weight pending Placenta intact with 3v cord Mom and baby doing well. documented in this encounter Nursing Notes * Karen Schumacher RN - 01/24/2022 1:50 PM CDT Infant discharged in stable condition per car seat with parents 01/24/2022 Karen Schumacher RN * Karen Schumacher RN - 01/24/2022 12:10 PM CDT Discharge instructions given to patient; patient verbalized understanding 01/24/2022 Karen Schumacher RN * Karen Schumacher RN - 01/24/2022 12:10 PM CDT Discharge instructions given to patient; patient verbalized understanding 01/24/2022 Karen Schumacher RN documented in this encounter Miscellaneous Notes * Plan of Care - Karen Schumacher RN - 01/24/2022 1:16 PM CDT Goals: Clinical Goals for the Shift: VSS, pain control Problem: Activity: Goal: Will verbalize the importance of balancing activity with adequate rest periods Outcome: Completed Problem: Lack of Knowledge: Goal: Will have increased knowledge of Care Outcome: Completed Problem: Coping: Goal: Ability to cope will improve Outcome: Completed Goal: Ability to identify and utilize available resources and services will improve Outcome: Completed Problem: Life Cycle: Goal: Risk for hemorrhage will decrease Outcome: Completed Goal: Chance of risk for complications during the period will decrease Outcome: Completed Problem: Nutritional: Goal: Dietary intake will improve Outcome: Completed Goal: Mother's verbalization of comfort with process will improve Outcome: Completed Problem: Role Relationship: Goal: Ability to interact appropriately with will improve Outcome: Completed Problem: Sensory: Goal: General experience of comfort will improve Outcome: Completed Problem: Health Behavior: Goal: Understanding of discharge needs will improve Outcome: Completed Summary:VSS, patient doing well and is stable for discharge 01/24/2022 Karen Schumacher RN * Plan of Care - Annel Driver RN - 01/23/2022 5:19 PM CDT Problem: Activity: Goal: Will verbalize the importance of balancing activity with adequate rest periods Outcome: Progressing Problem: Lack of Knowledge: Goal: Will have increased knowledge of Care Outcome: Progressing Problem: Coping: Goal: Ability to cope will improve Outcome: Progressing Goal: Ability to identify and utilize available resources and services will improve Outcome: Progressing Problem: Life Cycle: Goal: Risk for hemorrhage will decrease Outcome: Progressing Goal: Chance of risk for complications during the period will decrease Outcome: Progressing Problem: Nutritional: Goal: Dietary intake will improve Outcome: Progressing Goal: Mother's verbalization of comfort with process will improve Outcome: Progressing Problem: Role Relationship: Goal: Ability to interact appropriately with will improve Outcome: Progressing Problem: Sensory: Goal: General experience of comfort will improve Outcome: Progressing Goals: Clinical Goals for the Shift: VSS, pain control, azar with baby Summary: Patient has stable vitals, controlling pain with oral medication, and bonding well with baby. Report given to Janelle HERNANDES. Annel Driver RN * Plan of Care - Ruth Alva LCSW - 01/23/2022 3:05 PM CDT Esther Day 1990 Reason for Social Work Consult Social Work referral for pt/mother has hx of marijuana use. Parties present in the room at time of Social Work consultation: Pt/mother and . 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 Robert Akers. Pediatric follow-up to be scheduled with Dr. Malcolm Burrell. Medical insurance coverage is through [facility] [place] Medicaid. Information Infant, female, : [birth year], Khalida Day, was born at 39 weeks, 6 days. [place] will be breast fed. Social History Mother has established WIC (yes/no): Yes. Mother has car seat (yes/no): Yes. Mother has infant needs in place at home (yes/no): Yes. has a bassinet and crib for sleeping. Mother's household consists of: Pt/mother; FOB/Mr. Day; and their 2 older daughters. There are 3 cats, 1 dog, and 3 turtles in the home. Mother has other child(stephen) (yes/no): Yes. child's age/gender/name: Female, 04/25/13, Chris Day. Female, 03/31/17, Danni Day. Mother reports that she has support from: Her , Abdi Day. Psychosocial/DV/legal concerns: Pt/mother denied a history of domestic violence or legal issues forherself and/or her . She completed the 10th grade and Mr. Day earned his GED. She plans to remain at home with for a while then may seek work at one of the children's schools. Mr. 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 The couple have been together for 16 years and for 8. Mental Health History Mother has a history of prior mental health issues, post- depression (yes/no): Yes. Diagnosis, date, symptoms, treatments: Pt/mother denied a history of PPD with previous births. She has been treated with psychotropic medications, by her PCP, in the past for Anxiety. She has not been taking these medications during but plans to restart them once she finishes . Pt/mother denied any other mental health diagnoses/treatments for herself and . Substance Use History Maternal urine drug screen is Negative. [place] urine drug screen is Pending. Meconium results are Pending. Social Work reviewed these results with pt/mother. Regarding her substance abuse, mother reports: Pt/mother stated she was using edibles with THC until she found out she was . She keeps them locked in a safe in the home. She denied any other substance use/abuse for herself and/or . She is a former cigarette smoker and her still smokes tobacco, but outdoors. DCFS report is required (yes/no): No. Report details: No. Pt/mother denied previous contact with DCFS. Resources Provided and Goals Addressed Infant resource list given (yes/no): yes. Other resources given: Fact Sheet on Marijuana and . Referral(s) made to: None. Pt/mother declined referrals for mental health and/or substance abuse counseling. Discharge Plan Discharge plan is: Pt's , Mr. Abdi Day, will be transporting her and home at discharge. Social Work will follow for support and additional needs should they arise. 01/23/2022 3:06 PM Ruth Alva LCSW * Plan of Care - Annel Driver RN - 01/22/2022 5:18 PM CDT Problem: Lack of Knowledge: Goal: Knowledge of disease or condition and prescribed therapeutic regimen will improve Outcome: Progressing Problem: Coping: Goal: Level of anxiety will decrease Outcome: Progressing Problem: Life Cycle: Goal: Will achieve delivery and avoid or minimize maternal and complications Outcome: Progressing Problem: Sensory: Goal: Pain level will decrease Outcome: Progressing Problem: Lack of Knowledge: Goal: Verbalization of understanding the information provided will improve Outcome: Progressing Problem: Coping: Goal: Ability to identify appropriate support needs for the childbearing process will improve Outcome: Progressing Goal: Ability to verbilize concerns and feelings about labor and delivery improve Outcome: Progressing Problem: Life Cycle: Goal: Ability to maintain clinical measurements within normal limits will improve Outcome: Progressing Goal: Ability to make normal progression through stages of labor will improve Outcome: Progressing Goal: Ability to effectively push during vaginal delivery will improve Outcome: Progressing Problem: Role Relationship: Goal: Ability to demonstrate positive interaction with the child will improve Outcome: Progressing Problem: Safety: Goal: Chance of risk for complications during labor and delivery will decrease Outcome: Progressing Problem: Sensory: Goal: Relief or control of pain from uterine contractions will improve Outcome: Progressing Goals: Clinical Goals for the Shift: Safe and Healthy Delivery Summary: Patient is coping well with labor. Report given to Fouzia Morales RN. Annel Driver RN documented in this encounter Plan of Treatment Scheduled Orders Name Type Priority Associated Diagnoses Orde r Schedule Labor Induction - OB Routine Encounter for supervision of other normal in third trimester Once for 1 Occurrences starting 01/22/2022 until 01/22/2022 documented as of this encounter Procedures Procedure Name Priority Date/Time Associated Diagnosis Comments CBC WITHOUT DIFFERENTIAL Routine 01/23/2022 6:13 AM CDT DRUG SCREEN, URINE L AND D WITH REFLEX CONFIRMATION STAT 01/22/2022 6:53 AM CDT DIFFERENTIAL AUTO STAT 01/22/2022 6:5 3 AM CDT CBC WITH AUTO DIFFERENTIAL STAT 01/22/2022 6:53 AM CDT ABO/RH Timed 01/22/2022 6:53 AM CDT ANTIBODY SCREEN Timed 01/22/2022 6:53 AM CDT HC ANTIBODY SCREEN RBC Timed 6:53 AM CDT GROUP B STREPTOCOCCUS CULTURE Routine 12/18/2021 GTT 50GM 1HR GESTATIONAL SCREEN Routine 10/25/2021 HIV 1/2 ANTIBODY PLUS P24 ANTIGEN Routine 10/25/2021 HIV 1/2 ANTIBODY PLUS P24 ANTIGEN Routine 07/11/2021 DRUGS OF ABUSE SCREEN, URINE WITHOUT CONFIRMATION Routine 07/11/2021 ABO/RH Routine 07/11/2021 RUBELLA IGG Routine 07/11/2021 RPR Routine 07/11/2021 HEPATITIS B SURFACE ANTIGEN Routine 07/11/2021 documented in this encounter Results * (ABNORMAL) CBC without differential (01/23/2022 6:13 AM CDT) WBC 13.5(H) 3.8 - 9.9 K/cumm [facility] Hgb 9.8(L) 11.9 - 15.5 g/dL [facility] Hct 29.3(L) 35.6 - 45.5 % [facility] Plt 302 150 - 400 K/cumm [facility] MPV 10.9 9.1 - 12.3 fL [facility] RBC 3.80(L) 3.90 - 5.20 M/cumm [facility] MCV 77.1(L) 81.3 - 96.4 fL [facility] MCH 25.8(L) 27.1 - 33.3 pg [facility] MCHC 33.4 32.3 - 35.7 g/dL [facility] RDW CV 13.4 11.1 - 14.9 % [facility] RDW SD 38.1 35.7 - 48.1 fL [facility] NRBC abs 0.00 0.00 - 0.01 K/cumm [facility] Blood 01/23/2022 6:13 AM CDT 01/23/2022 6:18 AM CDT us Rboert Akers MD LAB BLOOD ORDERABLES F inal Result [facility] [address] [facility] Department [place] [address] * Differential, auto (01/22/2022 6:53 AM CDT) Neutrophil abs 6.2 1.7 - 6.5 K/cumm [facility] Imm gran abs 0.1 0.0 - 0.1 K/cumm [facility] Lymphocyte abs 3.1 0.8 - 3.3 K/cumm [facility] Monocyte abs 0.3 0.2 - 0.8 K/cumm [facility] Eosinophil abs 0.1 0.0 - 0.5 K/cumm [facility] Basophil abs 0.0 0.0 - 0.1 K/cumm [facility] Neutrophil pct 63.4 % [facility] Comment: Interpretive Data Percent cell count reference ranges are not reported, since discordance with absolute values may lead to misinterpretation of CBC data. Current Interpretive Data was last revised on 2017. Imm gran pct 0.5 % [facility] Comment: Interpretive Data Percent cell count reference ranges are not reported, since discordance with absolute values may lead to misinterpretation of CBC data. Current Interpretive Data was last revised on 2017. Lymphocyte pct 31.3 % [facility] Comment: Interpretive Data Percent cell count reference ranges are not reported, since discordance with absolute values may lead to misinterpretation of CBC data. Current Interpretive Data was last revised on 2017. Monocyte pct 3.4 % [facility] Comment: Interpretive Data Percent cell count reference ranges are not reported, since discordance with absolute values may lead to misinterpretation of CBC data. Current Interpretive Data was last revised on 2017. Eosinophil pct 1.1 % [facility] Comment: Interpretive Data Percent cell count reference ranges are not reported, since discordance with absolute values may lead to misinterpretation of CBC data. Current Interpretive Data was last revised on 2017. Basophil pct 0.3 % [facility] Comment: Interpretive Data Percent cell count reference ranges are not reported, since discordance with absolute values may lead to misinterpretation of CBC data. Current Interpretive Data was last revised on 2017. Blood 01/22/2022 6:53 AM CDT 01/22/2022 7:12 AM CDT Robert Akers MD LAB BLOOD ORDERABLES F inal Result Performing Organization Address City/[facility]/ZIP Co de Phone Number [facility] [address] [facility] [place] [address] * Antibody screen (01/22/2022 6:53 AM CDT) Brandin, indirect, Gel Interpretation Negative ABSC [facility] Blood 01/22/2022 6:53 AM CDT 01/22/2022 7:12 AM CDT Narrative [facility] - 01/22/2022 7:52 AM CDT Has the patient had Daratumumab or Isatuximab in the past 6 months?->Unknown Robert Akers MD LAB BLOOD BANK TEST OR DERABLES Final Result [facility] [address] [facility] [place] [address] * ABO/Rh (01/22/2022 6:53 AM CDT) ABO/Rh B Positive [facility] Blood 01/22/2022 6:53 AM CDT 01/22/2022 7:12 AM CDT Narrative [facility] - 01/22/2022 7:52 AM CDT Has the patient had Daratumumab or Isatuximab in the past 6 months?->Unknown Robert Akers MD LAB BLOOD BANK TEST OR DERABLES Final Result [facility] [address] [facility] Department [place] [address] * Drug Screen, Urine L and D with Reflex Confirmation (01/22/2022 6:53 AM CDT) Amphetamine, ur Not Detected CutOff 500ng/mL [facility] Comment: Interpretive Data - Amphetamines: ??Samples containing greater than 500 ng/mL d-methamphetamine ??or other cross-reacting amphetamine compounds are reported as positive. ??Amphetamine immunoassays are subject to significant false positive rates due to cross-reactivity of non-amphetamine drugs. Current Interpretive Data was last reviewed 2018. Barbiturates, ur Not Detected CutOff 200ng/mL [facility] Comment: Interpretive Data - Barbiturates: ??Samples containing greater than 200 ng/mL secobarbital or other cross-reacting barbiturate compounds are reported as positive. ??False positive and false negative results are possible. Current Interpretive Data was last reviewed 2018. Benzodiazepines, ur Not Detected CutOff 100ng/mL [facility] Comment: Interpretive Data - Benzodiazepines: ??Samples containing greater than 100 ng/mL nordiazepam or other cross-reacting compounds are reported as positive. ?? False positive and false negative results are possible. ?? Current Interpretive Data was last reviewed 2018. Cannabinoids, ur Not Detected CutOff 50 ng/mL [facility] Comment: Interpretive Data - Cannabinoids: ??Samples containing greater than 50 ng/mL delta-9 THC -COOH or other cross-reacting compounds are reported as positive. ??False positive and false negative results are possible. ?? Current Interpretive Data was last reviewed 2018. Cocaine, ur Not Detected CutOff 150ng/mL [facility] Comment: Interpretive Data - Cocaine: ??Samples containing greater than 150 ng/mL benzoylecgonine or other cross-reacting compounds are reported as positive. False positive and false negative results are possible. Current Interpretive Data was last reviewed 2018. Fentanyl, Ur Not Detected Cutoff 1 ng/mL [facility] Comment: Interpretive Data - Fentanyls: ??Samples containing greater than 1 ng/mL fentanyl or other cross-reacting fentanyl compounds are reported as detected. ??False positive and false negative results are possible. Current Interpretive Data was last reviewed 2018. Methadone, ur Not Detected CutOff 300ng/mL [facility] Comment: Interpretive Data - Methadone: ??Samples containing greater than 300 ng/mL d,l-methadone or other cross-reacting compounds are reported as positive. ??False positive and false negative results are possible. Current Interpretive Data was last reviewed 2018. Opiates, ur Not Detected CutOff 300ng/mL [facility] Comment: Interpretive Data - Opiates: ??Samples containing greater than 300 ng/mL morphine or other cross-reacting compounds are reported as positive. ??False positive and false negative results are possible. Current Interpretive Data was last reviewed 2018. Oxycodone, ur Not Detected CutOff 100ng/mL [facility] Comment: Interpretive Data - Oxycodone: ??Samples containing greater than 100 ng/mL oxycodone or other cross-reacting compounds are reported as positive. ??False positive and false negative results are possible. ?? Current Interpretive Data was last reviewed 2018. Phencyclidine, ur Not Detected CutOff 25 ng/mL [facility] Comment: Interpretive Data - Phencyclidine: ??Samples containing greater than 25 ng/mL phencyclidine or other cross-reacting compounds are reported as positive. ??False positive and false negative results are possible. ?? Current Interpretive Data was last reviewed 2018. Urine Creatinine 51 mg/dL [facility] Comment: Interpretive Data Urine Creatinine: < 10 mg/dL is extremely dilute = or > 10 but < 20 mg/dL is dilute = or > 20 mg/dL is normal Current Interpretive Data was last revised on 2017. Urine 01/22/2022 6:53 AM CDT 01/22/2022 7:12 AM CDT Narrative [facility] - 01/22/2022 7:41 AM CDT Drug of Abuse screening is performed by immunoassay for medical purposes only. ??This is not to be used for Pain Management purposes. ??If Detected, confirmation testing will be performed for Amphetamines, Barbiturates, Benzodiazepines, Cannabinoids, Cocaine, Fentanyl, Methadone, Opiates, Oxycodone or Phencyclidine. us Robert Akers MD LAB URINE ORDERABLES F inal Result [facility] 1 [facility] Department of Laboratories [place], [place] [id number] * (ABNORMAL) CBC with auto differential (01/22/2022 6:53 AM CDT) WBC 9.8 3.8 - 9.9 K/cumm [facility] Hgb 10.8(L) 11.9 - 15.5 g/dL [facility] Hct 31.8(L) 35.6 - 45.5 % [facility] Plt 312 150 - 400 K/cumm [facility] MPV 10.8 9.1 - 12.3 fL [facility] RBC 4.22 3.90 - 5.20 M/cumm [facility] MCV 75.4(L) 81.3 - 96.4 fL [facility] MCH 25.6(L) 27.1 - 33.3 pg [facility] MCHC 34.0 32.3 - 35.7 g/dL [facility] RDW CV 13.5 11.1 - 14.9 % [facility] RDW SD 36.2 35.7 - 48.1 fL [facility] NRBC abs 0.00 0.00 - 0.01 K/cumm [facility] Blood 01/22/2022 6:53 AM CDT 01/22/2022 7:12 AM CDT Robert Akers MD LAB BLOOD ORDERABLES F inal Result [facility] ([place] 1 [facility] Department [place] [address] * Group B streptococcal culture (12/18/2021) SCRIBED Group B Strep Negative Robert Akers MD LAB MICROBIOLOGY - GEN ERAL ORDERABLES Final Result * (ABNORMAL) Glucose tolerance testing 50 gram gestational screen (10/25/2021) SCRIBED GTT 50Gm 181(A) 65 - 135 Blood Robert Akers MD LAB BLOOD ORDERABLES F inal Result * HIV 1/2 Antibody plus p24 Antigen Blood (10/25/2021) SCRIBED HIV P24 Negative Blood Robert Akers MD LAB MICROBIOLOGY - GEN ERAL ORDERABLES Final Result * Rubella IgG antibody (07/11/2021) Rubella IgG Scribed Immune Blood Robert Akers MD LAB MICROBIOLOGY - GEN ERAL ORDERABLES Final Result * RPR Blood (07/11/2021) SCRIBED RPR Non-Reacti ve Blood Robert Akers MD LAB MICROBIOLOGY - GEN ERAL ORDERABLES Final Result * Hepatitis B Surface Antigen (07/11/2021) SCRIBED HBsAg Negative Blood Robert Akers MD LAB MICROBIOLOGY - GEN ERAL ORDERABLES Final Result * Drugs of Abuse Screen, Urine without Confirmation (07/11/2021) SCRIBED Drug screen Pos-MJ Urine Robert Akers MD LAB URINE ORDERABLES F inal Result * ABO/Rh (07/11/2021) SCRIBED ABO/Rh B+ Blood Result [facility] Robert Akers MD LAB BLOOD BANK TEST OR DERABLES Final Result * HIV 1/2 Antibody plus p24 Antigen Blood (07/11/2021) SCRIBED HIV P24 Negative Blood Robert Akers MD LAB MICROBIOLOGY - GEN ERAL ORDERABLES Final Result documented in this encounter Visit Diagnoses Diagnosis Third trimester - Primary state, incidental Encounter for supervision of other normal in third trimester documented in this encounter Admitting Diagnoses Diagnosis Third trimester state, incidental documented in this encounter Administered Medications Inactive Administered Medications - up to 3 most recent administrations Medication Order MAR Action Action Date Dose Rate Site benzocaine-menthoL (DERMOPLAST) 20-0.5 % topical spray 1 spray 1 spray, topical, As needed, other, perianal area for pain, Starting on Fri01/22/22 at 2218, Up to 6 times a day., Apply to affected area: perineum, Indications: Minor Skin Wound PainIndications:Minor Skin Wound Pain Given 01/22/2022 11:01 PM CDT 1 spray fentaNYL-bupivacaine preservative free in 0.9% sodium chloride 2 mcg/mL- 0.1 % cassette (premix) Continuous Rate: 10 mL/hr, Patient Bolus Dose: 5 mL, Lockout Interval: 15 Minutes, epidural, Continuous, Starting on Fri01/22/22 at 1430, Until Fri01/22/22 at 2218, 100 mL, Indications: Pain, RoutineIndications:Pain New Syringe/Cartridge 01/22/2022 2:16 PM CDT 100 mL ferrous sulfate tablet 325 mg 325 mg (65 mg of elemental iron), oral, 2 times daily with meals (bkfst, dinner), First dose on Fri01/23/22 at 1800, Indications: Iron Deficiency AnemiaIndications:Iron Deficiency Anemia Given 01/24/2022 8:20 AM CDT 325 mg Given 01/23/2022 11:57 PM CDT 325 mg HYDROcodone-acetaminophen (NORCO) 5-325 mg per tablet 1 tablet 1 tablet, oral, Every 4 hours PRN, 1st line for pain, may give 2 tablets, Starting on Fri01/22/22 at 2218, May give two tablets if needed, Indications: PainIndications:Pain Given 01/24/2022 10:36 AM CDT 1 tablet Given 01/23/2022 11:55 PM CDT 1 tablet Given 01/23/2022 4:30 PM CDT 1 tablet ibuprofen (ADVIL,MOTRIN) tablet 600 mg 600 mg, oral, Every 6 hours PRN, other, cramping, Starting on Fri01/22/22 at 2218, Indications: CrampsIndications:Cramps Given 01/24/2022 8:20 AM CDT 600 mg Given 01/23/2022 10:37 PM CDT 600 mg Given 01/23/2022 3:04 PM CDT 600 mg influenza quadrivalent (FLULAVAL,FLUARIX,FLUZONE) 60 mcg (15 mcg x 4)/0.5 mL vaccine (STANDARD age 6 months and up) 0.5 mL 0.5 mL, intramuscular, During hospitalization, immunization, Starting on Fri01/23/22 at 1422, For 1 dose, Indications: influenza vaccinationIndications:inf luenza vaccination Given 01/24/2022 12:06 PM CDT 0.5 mL Right Deltoid Lactated Ringer's (LR) bolus 1,000 mL 1,000 mL, intravenous, at 1,000 mL/hr, Administer over 1 Hours, Once as needed, for epidural placement per anesthesia request, Starting on Fri01/22/22 at 0633, For 1 dose, L&D Pre-Delivery, Administer only on provider request. Start 15 minutes prior to epidural placement New Bag 01/22/2022 1:59 PM CDT 1,000 mL 1000 mL/hr Lactated Ringer's (LR) infusion 125 mL/hr, intravenous, Continuous, Starting on Fri01/22/22 at 0715, L&D Pre-Delivery, New Bag 01/22/2022 3:00 PM CDT 125 mL/hr 125 mL/hr New Bag 01/22/2022 7:00 AM CDT 125 mL/hr 125 mL/hr ondansetron (ZOFRAN) injection 4 mg 4 mg, intravenous, Administer over 2 Minutes, Every 6 hours PRN, nausea, vomiting, if not tolerating PO, Starting on Fri01/22/22 at 2218, Indications: Nausea and VomitingIndications:Nausea and Vomiting ondansetron ODT (ZOFRAN-ODT) disintegrating tablet 4 mg 4 mg, oral, Every 6 hours PRN, nausea, vomiting, Starting on Fri01/22/22 at 2218, Indications: Nausea and VomitingIndications:Nausea and Vomiting oxytocin 30 unit/500 mL (0.06 unit/mL) in sodium chloride 0.9% (premix) solution 0.5-40 milliunits/min (0.5-40 mL/hr), 0.06 units/mL, intravenous, Titrated, Starting on Fri01/22/22 at 0715, Until Fri01/22/22 at 2218, L&D Pre-Delivery, Indications: Induction of Labor, Start at 2 lashanda-units/min and increase by 2 lashanda-units/minutes q 20 minutes until contraction frequency is every 2-3 minutes. - - 20 milliunits/minutes maximum - All other patients 40 milliunits/minute maximum Discontinue for distress or uterine hyperstimulation. Call me prior to increasing past 20mu/ min., RoutineIndications:Inductio n of Labor Rate/Dose Change 01/22/2022 7:00 PM CDT 18 milliunits/min 18 mL/hr Rate/Dose Change 01/22/2022 5:30 PM CDT 16 milliunits/min 16 mL/hr Rate/Dose Change 01/22/2022 4:45 PM CDT 14 milliunits/min 14 mL/hr vit-iron fum-folic ac tablet 1 tablet 1 tablet, oral, Daily, First dose on Fri01/23/22 at 0900, Begin when normal bowel activity resumes., Indications: Vitamin Deficiency PreventionIndications:Vitamin Deficiency Prevention Given 01/24/2022 8:20 AM CDT 1 tablet Given 01/23/2022 10:25 AM CDT 1 tablet sodium chloride 0.9% flush 0.5-20 mL 0.5-20 mL, intra-catheter, Every 8 hours scheduled, First dose on Fri01/22/22 at 0715, L&D Pre-Delivery, Flush volume based on line type and size. , Indications: FlushingIndications:Flushing Given 01/22/2022 7:00 AM CDT 10 mL documented in this encounter Active and Recently Administered Medications Times are shown in CDT. Scheduled Medication Order 01/22/2022 01/23/2022 01/24/2022 ferrous sulfate tablet 325 mg 325 mg (65 mg of elemental iron), oral, 2 times daily with meals (bkfst, dinner), First dose on Fri01/23/22 at 1800, Indications: Iron Deficiency Anemia 2357 (Given - Provider: Jessie Tavarez RN) 0820 (Given - Provider: Karen Schumacher, GRETA) vit-iron fum-folic ac tablet 1 tablet 1 tablet, oral, Daily, First dose on Fri01/23/22 at 0900, Begin when normal bowel activity resumes., Indications: Vitamin Deficiency Prevention 1025 (Given - Provider: Annel Driver RN) 0820 (Given - Provider: Karen Schumacher, GRETA) sodium chloride 0.9% flush 0.5-20 mL (CANCELED) 0.5-20 mL, intra-catheter, Every 8 hours scheduled, First dose on Fri01/22/22 at 0715, L&D Pre-Delivery, Flush volume based on line type and size. , Indications: Flushing 0700 (Given - Provider: Annel Driver RN)1721 (Not Given - Provider: Annel Driver RN - Reason: IV Infusing)2200 (Due) Continuous Medication Order 01/22/2022 01/23/2022 01/24/2022 fentaNYL-bupivacaine preservative free in 0.9% sodium chloride 2 mcg/mL- 0.1 % cassette (premix) (CANCELED) Continuous Rate: 10 mL/hr, Patient Bolus Dose: 5 mL, Lockout Interval: 15 Minutes, epidural, Continuous, Starting on Fri01/22/22 at 1430, Until Fri01/22/22 at 2218, 100 mL, Indications: Pain, Routine 1400 (Not Given - Provider: Annel Driver RN - Reason: Other - Comment: duplicate order)1416 (New Syringe/Cartridge - Provider: Annel Driver RN)2034 (Stopped (Dual Sign) - Provider: Fouzia Dangelo RN)2217 (Due: Stopped - Provider: Robert Akers MD) Lactated Ringer's (LR) infusion (CANCELED) 125 mL/hr, intravenous, Continuous, Starting on Fri01/22/22 at 0715, L&D Pre-Delivery, 0700 (New Bag - Provider: Annel Driver RN)1500 (New Bag - Provider: Annel Driver RN)2218 (Stopped - Provider: Fouzia Dangelo RN) oxytocin 30 unit/500 mL (0.06 unit/mL) in sodium chloride 0.9% (premix) solution (CANCELED) 0.5-40 milliunits/min (0.5-40 mL/hr), 0.06 units/mL, intravenous, Titrated, Starting on Fri01/22/22 at 0715, Until Fri01/22/22 at 2218, L&D Pre-Delivery, Indications: Induction of Labor, Start at 2 lashanda-units/min and increase by 2 lashanda-units/minutes q 20 minutes until contraction frequency is every 2-3 minutes. - - 20 milliunits/minutes maximum - All other patients 40 milliunits/minute maximum Discontinue for distress or uterine hyperstimulation. Call me prior to increasing past 20mu/ min., Routine 0715 (New Bag - Provider: Annel Driver RN)0745 (Rate/Dose Change - Provider: Annel Driver RN)0825 (Rate/Dose Change - Provider: Annel Driver RN)1045 (Rate/Dose Change - Provider: Annel Driver RN)1150 (Rate/Dose Change - Provider: Annel Driver RN)1525 (Rate/Dose Change - Provider: Annel Driver RN)1645 (Rate/Dose Change - Provider: Annel Driver RN)1648 (Canceled Entry - Provider: Annel Driver RN)1730 (Rate/Dose Change - Provider: Fouzia Dangelo RN)1900 (Rate/Dose Change - Provider: Fouzia Dangelo RN)2218 (Due: Stopped - Provider: Robert Akers MD) PRN Medication Order 01/22/2022 01/23/2022 01/24/2022 benzocaine-menthoL (DERMOPLAST) 20-0.5 % topical spray 1 spray 1 spray, topical, As needed, other, perianal area for pain, Starting on Fri01/22/22 at 2218, Up to 6 times a day., Apply to affected area: perineum, Indications: Minor Skin Wound Pain 2301 (Given - Provider: Fouzia Dangelo RN) HYDROcodone-acetaminophen (NORCO) 5-325 mg per tablet 1 tablet 1 tablet, oral, Every 4 hours PRN, 1st line for pain, may give 2 tablets, Starting on Fri01/22/22 at 2218, May give two tablets if needed, Indications: Pain 0151 (Given - Provider: Jessie Tavarez RN)1025 (Given - Provider: Annel Driver RN)1630 (Given - Provider: Annel Driver RN)2355 (Given - Provider: Jessie Tavarez RN) 1036 (Given - Provider: Pilar Akers RN) ibuprofen (ADVIL,MOTRIN) tablet 600 mg 600 mg, oral, Every 6 hours PRN, other, cramping, Starting on Fri01/22/22 at 2218, Indications: Cramps 2300 (Given - Provider: Fouzia Dangelo, GRETA) 0618 (Given - Provider: Annel Driver, GRETA)1504 (Given - Provider: Annel Driver, GRETA)2237 (Given - Provider: Jessie Tavarez RN) 0820 (Given - Provider: Karen Schumacher, [place]) influenza quadrivalent [id number] (FLULAVAL,FLUARIX,FLUZONE ) 60 mcg (15 mcg x 4)/0.5 mL vaccine (STANDARD age 6 months and up) 0.5 mL (COMPLETED) 0.5 mL, intramuscular, During hospitalization, immunization, Starting on Fri01/23/22 at 1422, For 1 dose, Indications: influenza vaccination 1206 (Given - Provider: Karen Schumacher, [place]) Lactated Ringer's (LR) bolus 1,000 mL (COMPLETED) 1,000 mL, intravenous, at 1,000 mL/hr, Administer over 1 Hours, Once as needed, for epidural placement per anesthesia request, Starting on Fri01/22/22 at 0633, For 1 dose, L&D Pre-Delivery, Administer only on provider request. Start 15 minutes prior to epidural placement 1359 (New Bag - Provider: Annel Driver RN) ondansetron (ZOFRAN) injection 4 mg(Linked Group 1) 4 mg, intravenous, Administer over 2 Minutes, Every 6 hours PRN, nausea, vomiting, if not tolerating PO, Starting on Fri01/22/22 at 2218, Indications: Nausea and Vomiting ondansetron ODT (ZOFRAN-ODT) disintegrating tablet 4 mg(Linked Group 1) 4 mg, oral, Every 6 hours PRN, nausea, vomiting, Starting on Fri01/22/22 at 2218, Indications: Nausea and Vomiting Linked Groups Order Group 1: ondansetron ODT (ZOFRAN-ODT) disintegrating tablet 4 mgJump to med 4 mg, oral, Every 6 hours PRN, nausea, vomiting, Starting on Fri01/22/22 at 2218, Indications: Nausea and Vomiting Or ondansetron (ZOFRAN) injection 4 mgJump to med 4 mg, intravenous, Administer over 2 Minutes, Every 6 hours PRN, nausea, vomiting, if not tolerating PO, Starting on Fri01/22/22 at 2218, Indications: Nausea and Vomiting documented in this encounter Orders Medications Ordered That Edilberto ht Not Have Been Administered Count Last Ordered Date First Ordered Date Carrier Fluids for Secondary Infusion - 0.9% Sodium Chloride 2 01/22/2022 clindamycin (CLEOCIN) 900 mg /50 mL in dextrose 5% (premix) 900 mg 1 01/22/2022 Lactated Ringer's (LR) bolus 500 mL 1 01/22 lidocaine PF (XYLOCAINE) 10 mg/mL (1 %) preservative free injection 100 mg 1 01/22/2022 naloxone (NARCAN) 0.4 mg/mL injection 0.04-0.4 mg 1 01/22/2022 ondansetron (ZOFRAN) injection 4 mg 2 01/22 ondansetron ODT (ZOFRAN-ODT) disintegrating tablet 4 mg 2 01/22/2022 sodium chloride 0.9% flush 0.5-20 mL 3 01/12 terbutaline (BRETHINE) injection 0.125 mg 1 01/22/2022 terbutaline (BRETHINE) injection 0.25 mg 1 01/22/2022 Nursing Count Last Ordered Date First Orde red Date DISCHARGE ACTIVITY 3 01/24/2022 DISCHARGE CALL PROVIDER 3 01/24/2022 DISCHARGE INSTRUCTIONS 8 01/24/2022 Consult Count Last Ordered Date First Orde red Date IP CONSULT TO NUTRITION SERVICES 1 01/23/20 22 Admission Count Last Ordered Date First Orde red Date ADMIT TO L&D INPATIENT 1 01/22/2022 Transfer Count Last Ordered Date First Orde red Date TRANSFER PATIENT TO NEW UNIT 2 01/22/2022 Discharge Count Last Ordered Date First Orde red Date DISCHARGE PATIENT 1 01/24/2022 CORE MEASURES Count Last Ordered Date First Ord ered Date REASON FOR NO VTE PROPHYLAXIS AT ADMISSION 2 01/22/2022 documented in this encounter Additional Health Concerns Infection Onset Date Last Indicated Resolved Time COVID19 Comment:Eligible for COVID: Recovered status 01/26/22. SANJEEV Eddy 01/15/2022 01/15/2022 02/03/2022 3:05 AM Alanis MORGAN documented as of this encounter Care Teams Jewelry Mechanic Relationship Specialty Start Date End Date Kj Merlos MD [address] [place] [id number] PCP - General 11/03/21 documented as of this encounter
--- OUTSIDE RECORDS SUMMARY | 2024-04-17 14:00 | XMS_ITS | Referral Summary ---
Author Organization [facility] [address] Address [address] [place] [address] Phone Care Team Providers Care Torch Straightener And Heater Name Role Phone Kj Merlos MD Primary Care Provider [phone] Allergies Active Allergy Reactions Criticality Noted Date Comments Amoxicillin-Pot Clavulanate Rash Medium 03/11/20 16 Cefaclor Rash Medium 03/11/2016 Codeine Hives,Itching High 12/25/2018 Medications prenat.vits,riana ,uei-xqkg-atldt tabletIndicatio ns: Take 2 tablets by mouth [...] often do you attend chur ch or uatsdin services? Never 01/23/2022 Do you belong to any clubs o r organizations such as baptist groups, unions, fraternal or athletic groups, or [...] slept in a halfway (including now)? No 01/23/2022 Education Answer Date Recorded What is the highest level of school you have completed or the highest degree you have received? 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 Gender Identity Not on file Sexual Orientation Not on file Last Filed Vital Signs [...] 01/22/2022 7:45 AM CDT Plan of Treatment Not on file Insurance [facility] Advance Directives For more information, please contact: [phone] * Full Code (Latest Code Status on File) Date Activated Date Inactivated Comments 01/22/2022 10:18 PM 01/24/2022 5:59 PM * Full Code Date Activated Date Inactivated Comments 01/22/2022 6:33 AM 01/22/2022 10:18 PM Full CPR in case of cardiopulmonary arrest Care Teams Torch Straightener And Heater Relationship Specialty Start Date End Date Kj Merlos MD [address] [id number] PCP - General 11/03/21
--- OUTSIDE RECORDS SUMMARY | 2024-04-17 14:00 | XMS_ITS | Encounter Summary ---
Author Organization [facility] Address [address] [place] [address] Care Team Providers Care Electric Sealing Machine Operator Name Role Phone Kj Merlos MD Primary Care Provider + [phone] Reason for Visit * Reason Onset Date Comments Covid-19 Home Monitoring 01/17/2022 Encounter Details Date Type Department Care Team (Late st Contact Info) Description 01/17/[address] 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 By saving a note using this template, the patient will drop off our home monitoring candidate reports for two weeks. If we still consider them to have an active case of COVID-19 at that time, we willreevaluate them for home monitoring. documented in this encounter Plan of Treatment Not on file documented as of this encounter Visit Diagnoses Not on filedocumented in this encounter Additional Health Concerns Infection Onset Date Last Indicated Resolved Time COVID19 Comment:Eligible for COVID: Recovered status 01/26/22. SANJEEV Eddy 01/15/2022 01/15/2022 02/03/2022 3:05 AM C DT documented as of this encounter Care Teams Electric Sealing Machine Operator Relationship Specialty Start Date End Date Kj Merlos MD [address] [place] [address] PCP - General 11/03/21 documented as of this encounter
--- OUTSIDE RECORDS SUMMARY | 2024-04-17 14:00 | XMS_ITS | Encounter Summary ---
Author Organization [facility] Address [address] [place] [id number] Care Team Providers Care Collect On Delivery Clerk Name Role Phone Kj Merlos MD Primary Care Provider [phone] Reason for Visit * Reason Comments Non-stress Test Encounter Details Date Type Department Care Team (Latest Contact Info) Description 01/02/2022 10:02 AM CDT - 01/02/2022 11:00 AM CDT Hospital Encounter [facility] [address] [place] [address] Robert Akers MD [address] [place] [address] [address] [place] [address] Discharge Disposition: Discharge to home or self care Social History Tobacco Use Types Packs/Day Years Used Date Smoking Tobacco: Former Cigarettes 0.2 12.1 0 12/14/2008 - 01/12/2021 Smokeless Tobacco: Never Tobacco Cessation:Counseling Given: Not Answered AUDIT-C Answer Date Recorded Q1: How often [...] on file 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 Gender Identity Not on file Sexual Orientation Not on file documented as of this encounter Last Filed Vital Signs Vital Sign Reading Time Taken Comments Blood Pressure - - Pulse - - Temperature - - Respiratory Rate 18 01/02/2022 10:14 AM CDT Oxygen Saturation - - Inhaled Oxygen Concentration - - Weight - - Height - - Body Mass Index - - documented in this encounter Discharge Diagnoses Diagnosis Encounter for supervision of other normal , unspecified trimester - ENCOUNTER FOR SUPERVISION OF OTHER NORMAL , UNSPECIFIED TRIMESTER Weeks of gestation of not specified - WEEKS OF GESTATION OF NOT SPECIFIED documented in this encounter Discharge Instructions * Discharge Instr - Activity* Kandace Desir - 01/02/2022 10:51 AM CDT Normal activity as tolerated * Discharge Instr - Diet* Kandace Desir - 01/02/2022 10:51 AM CDT Continue home diet * Attachments The following attachments cannot be sent through Care Everywhere. * Early Labor Signs (Discharge Care) (Macedonian) documented in this encounter Medications at Time of Discharge prenat.vitsriana m jv-mpig-csmst tabletIndications : Take 2 tablets by mouth daily documented as of this encounter Discharge Disposition Disposition Code Departure Means Destination Discharge to home or self care documented in this encounter Nursing Notes * Kandace Desir - 01/02/2022 11:03 AM CDT Pt here today for NST as directly by Dr. Akers at appointment yesterday. Pt is gestational diabetic. NST done for status and baseline for fetus. Pt reports frequent movement day and night. Reviewed discharge instructions, kick counts and signs of early labor. Pt stated understanding. Ambulated out of hospital in stable condition. documented in this encounter Plan of Treatment Not on file documented as of this encounter Visit Diagnoses Not on filedocumented in this encounter Discontinued Medications Medication Sig Discontinue Reason Start Date End Da te sulfamethoxazole-trimeth oprim (BACTRIM DS,SEPTRA DS) 800-160 mg per tablet Take 1 tablet by mouth 2 (two) times a day. Therapy completed 05/28/2018 01/02/2022 documented as of this encounter Historical Medications * This list may reflect changes made after this encounter. prenat.vits,riana,m uz-ylcx-bjnyo tabletIndications : Take 2 tablets by mouth daily added in this encounter Care Teams Collect On Delivery Clerk Relationship Specialty Start Date End Date Kj Merlos MD [address] [place] [id number] PCP - General 11/03/21 documented as of this encounter
--- OUTSIDE RECORDS SUMMARY | 2024-04-17 14:00 | XMS_ITS | Encounter Summary ---
Author Organization [facility] Address [address] [place] [address] Care Team Providers Care Rag Room Supervisor Name Role Phone Malcolm Burrell MD Primary Care Provider [phone] Encounter Details Date Type Department Care Team (Late st Contact Info) Description 05/26/2018 Telephone [facility] [address] [place] [address] Uyen Palma RN Social History Tobacco Use Types Packs/Day Years Used Date Smoking Tobacco: Unknown Comments Unknown Sex and Gender Information Value Date Recorded Sex Assigned at Not on file Legal Sex Female 3:07 AM MAMMOGRAPHY TECHNICIAN Gender Identity Not on file Sexual Orientation Not on file documented as of this encounter Miscellaneous Notes * Telephone Encounter - Uyen Palma RN - 05/28/2018 11:44 AM CST Pt calling today to report that wrist incision continues to look fine . The incision where ganglion was removed drained a small amount of yellow fluid yesterday, incision is still closed. Dr Blanton out of office this week. Pt refuses ER, wants to keep appt for next week as planned. Rx for Bactrim(as pt has many allergies et she can tolerate this) called to [facility]. Pt knows to call if not improving to move up appt. She voices understanding. OGRAPHY TECHNICIAN * Telephone Encounter - Uyen Palma RN - 05/26/2018 1:37 PM CST DANIELLE Pt had R CTR 04/29/18, seen at post op visit on 05/08/18 et doing well. Pt calling today to report that she is having some shock type pain a few times daily in the area of her surgery. Feels thatincisions are sensitive . Per pt, incisions are well healed without redness or drainage. Pt deniesfever. Pt has appt on 06/05/18 for follow up, offered to move up appt et pt refuses, prefers to keepappt as scheduled. Reassurance given et normal post op course reviewed with pt-she knows to call before appt if needed. She is happy with this plan. OGRAPHY TECHNICIAN documented in this encounter Plan of Treatment Not on file documented as of this encounter Visit Diagnoses Not on filedocumented in this encounter Care Teams Rag Room Supervisor Relationship Specialty Start Date End Date Malcolm Burrell MD [address] [place] [address] PCP - General 08/19/16 11/02/21 documented as of this encounter
--- OUTSIDE RECORDS SUMMARY | 2024-04-17 14:01 | XMS_ITS | Encounter Summary ---
Author Organization [facility] Address [address] [place] [address] Phone Care Team Providers Care Medicare Biller Name Role Phone Malcolm Burrell MD Primary Care Provider [phone] Encounter Details Date Type Department Care Team (Late st Contact Info) Description 04/30/2018 Orders Only [facility] [address] [place] [address] Trent Blanton MD [address] [place] [address] Social History Tobacco Use Types Packs/Day Years Used Date Smoking Tobacco: Unknown Comments Unknown Sex and Gender Information Value Date Recorded Sex Assigned at Not on file Legal Sex Female 3:07 AM GAS DERRICK OPERATOR Gender Identity Not on file Sexual Orientation Not on file documented as of this encounter Plan of Treatment Not on file documented as of this encounter Procedures Procedure Name Priority Date/Time Associated Diagnosis Comments SCAN - LABS 04/30/2018 3:57 PM GAS DERRICK OPERATOR documented in this encounter Results * SCAN - LABS (04/30/2018 3:57 PM GAS DERRICK OPERATOR) us Trent Blanton MD Final R esult documented in this encounter Visit Diagnoses Not on filedocumented in this encounter Care Teams Medicare Biller Relationship Specialty Start Date End Date Malcolm Burrell MD [address] [place], [place] [id number] PCP - General 08/19/16 11/02/21 documented as of this encounter
--- OUTSIDE RECORDS SUMMARY | 2024-04-17 14:01 | XMS_ITS | Encounter Summary ---
Author Organization [facility] Address [address] [place] [address] Care Team Providers Care Director Of Digital Platforms Name Role Phone Malcolm Burrell MD Primary Care Provider [phone] Encounter Details Date Type Department Care Team (Late st Contact Info) Description 12/31/2017 Transcribe Orders [facility] [address] [place] [address] Trent Blanton MD [address] [place] [address] Right arm pain (Primary Dx) Social History Tobacco Use Types Packs/Day Years Used Date Smoking Tobacco: Unknown Comments Unknown Sex and Gender Information Value Date Recorded Sex Assigned at Not on file Legal Sex Female 3:07 AM BI APPLICATION DEVELOPER Gender Identity Not on file Sexual Orientation Not on file documented as of this encounter Plan of Treatment Not on file documented as of this encounter Visit Diagnoses Diagnosis Right arm pain- Primary Pain in soft tissues of limb documented in this encounter Care Teams Director Of Digital Platforms Relationship Specialty Start Date End Date Malcolm Burrell MD [address] [place] [address] PCP - General 08/19/16 11/02/21 documented as of this encounter
--- OUTSIDE RECORDS SUMMARY | 2024-04-17 14:01 | XMS_ITS | Encounter Summary ---
Author Organization [facility] Address [address] [place] [address] Care Team Providers Care Guest Room Inspector Name Role Phone Malcolm Burrell MD Primary Care Provider [phone] Reason for Visit * Diagnostic Imaging (Routine) - Closed Specialty Diagnoses / Procedures Referred By Contac t Referred To Contact Diagnoses Right wrist pain Procedures XR Wrist Right 3 or More Views XR Wrist Left 3 or More Views XR Wrist Right 3 (Standard) Trent Blanton MD Phone: tel: fax: [facility] Referral ID Status Reason Start Date Expiration Date Visits Re quested Visits Authorized [id number] Closed 12/31/2017 07/12/2019 1 1 Encounter Details Date Type Department Care Team (Latest Contact Info) Description 12/31/2017 10:30 AM CDT Ancillary Procedure [facility] [address] [place] [address] Right wrist pain Social History Tobacco Use Types Packs/Day Years Used Date Smoking Tobacco: Unknown Comments Unknown Sex and Gender Information Value Date Recorded Sex Assigned at Not on file Legal Sex Female 3:07 AM VESSEL SCRAPPER HELPER Gender Identity Not on file Sexual Orientation Not on file documented as of this encounter Plan of Treatment Not on file documented as of this encounter Procedures Procedure Name Priority Date/Time Associated Diagnosis Comments XR WRIST RIGHT 3 OR MORE VIEWS Schedule Routine, Read Routine (OP Routine) 01/01/2018 8:36 AM CDT Right wrist pain documented in this encounter Results * XR Wrist Right 3 or More Views (01/01/2018 8:36 AM CDT) Anatomical Region Laterality Modality Upper Extremities, Wrist Right Compute d Radiography Impressions 01/02/2018 2:58 PM CDT 1. Subtle early degenerative changes of the wrist with loss of joint spaces and irregularity of articular surfaces. 2. No fracture or focal osseous destructive change is seen. 3. If there is clinical suggestion for radio-occult soft tissue abnormality such as ganglion cyst formation, additional outpatient MRI may be considered to confirm if patient is MRI compatible. ?? Narrative 01/02/2018 2:58 PM CDT DIGITAL RIGHT WRIST: Views of the right wrist are negative for fracture or focal osseous destructive change. ??There is minimal irregularity of articular surfaces and loss of joint spaces. ??No radiopaque foreign body is seen. ?? us rTent Blanton MD IMG XR PROCEDURES Final Result documented in this encounter Visit Diagnoses Diagnosis Right wrist pain Pain in joint, forearm documented in this encounter Care Teams Guest Room Inspector Relationship Specialty Start Date End Date Malcolm Burrell MD [address] [place] [address] PCP - General 08/19/16 11/02/21 documented as of this encounter
--- OUTSIDE RECORDS SUMMARY | 2024-04-17 14:01 | XMS_ITS | Encounter Summary ---
Author Organization [facility] Healthcare Address [address] [place] [address] Care Team Providers Care Demand Planning Analyst Name Role Phone Unavailable Primary Care Provider Unavailabl e Encounter Details Date Type Department Care Team (Late st Contact Info) Description 12/08/2007 4:09 PM CDT - 12/08/2007 11:59 PM CDT Hospital Encounter [facility] Social History Tobacco Use Types Packs/Day Years Used Date Smoking Tobacco: Never Assessed Comments Unknown Sex and Gender Information Value Date Recorded Sex Assigned at Not on file Legal Sex Female 3:07 AM GUEST SERVICES MANAGER Gender Identity Not on file Sexual Orientation Not on file documented as of this encounter Plan of Treatment Not on file documented as of this encounter Visit Diagnoses Not on filedocumented in this encounter
--- OUTSIDE RECORDS SUMMARY | 2024-04-17 14:01 | XMS_ITS | Encounter Summary ---
Author Organization [facility] Healthcare Address [address] [place] [address] Care Team Providers Care Film Writer Name Role Phone Unavailable Primary Care Provider Unavailabl e Encounter Details Date Type Department Care Team (Late st Contact Info) Description 08/30/2007 7:04 PM CDT - 08/30/2007 11:45 PM CDT Hospital Encounter [facility] Keri Forde Social History Tobacco Use Types Packs/Day Years Used Date Smoking Tobacco: Never Assessed Comments Unknown Sex and Gender Information Value Date Recorded Sex Assigned at Not on file Legal Sex Female 3:07 AM TOOL CRIB CLERK Gender Identity Not on file Sexual Orientation Not on file documented as of this encounter Plan of Treatment Not on file documented as of this encounter Visit Diagnoses Not on filedocumented in this encounter
--- OUTSIDE RECORDS SUMMARY | 2024-04-17 14:01 | XMS_ITS | Encounter Summary ---
Author Organization [facility] Address [address] [place] [address] Care Team Providers Care Deputy Sheriff Lieutenant Name Role Phone Malcolm Burrell MD Primary Care Provider [phone] Reason for Visit * Reason Comments Pain Follow-up Test Results Encounter Details Date Type Department Care Team (Late st Contact Info) Description 01/19/2018 9:50 AM CDT Office Visit [facility] [address] [place] [address] Trent Blanton MD [address] [address] Ganglion of right wrist (Primary Dx); Carpal tunnel syndrome of right wrist Social History Tobacco Use Types Packs/Day Years Used Date Smoking Tobacco: Unknown Comments Unknown Sex and Gender Information Value Date Recorded Sex Assigned at Not on file Legal Sex Female 3:07 AM CUPROUS CHLORIDE OPERATOR Gender Identity Not on file Sexual Orientation Not on file documented as of this encounter Last Filed Vital Signs Vital Sign Reading Time Taken Comments Blood Pressure 122/80 01/19/2018 10:10 AM CDT Pulse - - Temperature - - Respiratory Rate - - Oxygen Saturation - - Inhaled Oxygen Concentration - - Weight 91.6 kg (202 lb) 01/19/2018 10:10 AM CDT Height 162.6 cm (5' 4 ) 01/19/2018 10:10 AM CDT Body Mass Index 34.67 01/19/2018 10:10 AM CDT documented in this encounter Patient Instructions * Patient Instructions* Trent Blanton MD - 01/19/2018 9:50 AM CDT The risks benefits potential complications prognosis for recovery and realistic expectations have been discussed with the patient and they are in agreement with the proposed plan. documented in this encounter Progress Notes * Trent Blanton MD - 01/19/2018 9:50 AM CDT Patient returns today with no change in symptoms or physical findings. EMG/NCS confirms significant carpal tunnel syndrome as suspected clinically. Diagnosis-right carpal tunnel syndrome unresponsive to conservative measures. Plan-carpal tunnel release is indicated along with removal of any ganglion cyst encountered at the time. The risks benefits potential complications prognosis for recovery and realistic expectations have been discussed with the patient and they are in agreement with the proposed plan. documented in this encounter Plan of Treatment Not on file documented as of this encounter Visit Diagnoses Diagnosis Ganglion of right wrist- Primary Carpal tunnel syndrome of right wrist documented in this encounter Care Teams Deputy Sheriff Lieutenant Relationship Specialty Start Date End Date Malcolm Burrell MD [address] [place] [address] PCP - General 08/19/16 11/02/21 documented as of this encounter
--- OUTSIDE RECORDS SUMMARY | 2024-04-17 14:01 | XMS_ITS | Encounter Summary ---
Author Organization [facility] Address [address] [place] [address] Care Team Providers Care Podiatry Assistant Name Role Phone Malcolm Burrell MD Primary Care Provider [phone] Reason for Visit * Reason Comments Pain * Consultation (Routine) - Closed Specialty Diagnoses / Procedures Referred By Contact Referred To Contact Orthopedic Surgery Diagnoses Ganglion, unspecified wrist Diana Robles NP Phone: tel:[phone] fax:[phone] [facility] [address] [place] [address] Phone: tel: Referral ID Status Reason Start Date Expiration Date Visits Re quested Visits Authorized [id number] Closed 12/26/2017 06/25/2018 1 1 Encounter Details Date Type Department Care Team (Late st Contact Info) Description 12/31/2017 10:00 AM CDT Office Visit [facility] [address] [place] [address] Trent Blanton MD [address] [place] [address] Ganglion of right wrist (Primary Dx); Carpal tunnel syndrome of right wrist Social History Tobacco Use Types Packs/Day Years Used Date Smoking Tobacco: Unknown Comments Unknown Sex and Gender Information Value Date Recorded Sex Assigned at Not on file Legal Sex Female 3:07 AM CLASSROOM COORDINATOR Gender Identity Not on file Sexual Orientation Not on file documented as of this encounter Last Filed Vital Signs Vital Sign Reading Time Taken Comments Blood Pressure 122/80 12/31/2017 10:16 AM CDT Pulse - - Temperature - - Respiratory Rate - - Oxygen Saturation - - Inhaled Oxygen Concentration - - Weight 91.6 kg (202 lb) 12/31/2017 10:16 AM CDT Height 162.6 cm (5' 4 ) 12/31/2017 10:16 AM CDT Body Mass Index 34.67 12/31/2017 10:16 AM CDT documented in this encounter Progress Notes * Trent Blanton MD - 12/31/2017 10:00 AM CDT This 27-year-old female is seen today for evaluation of right wrist pain of 1 month duration. She has identified no injury but has noticed a mass over the radial/volar aspect of her wrist and is complaining of numbness and tingling as well as night waking in the median nerve distribution. She has been dropping objects secondary to pain. Examination confirms healthy 27-year-old with positive findings in the right wrist with there is a volar/radial 5 millimeter mass consistent with a ganglion cyst but also positive Tinel MP PT sign atthe transverse carpal ligament. There is 4+/5 strength in the thenar muscular group but no atrophy.Joey's test is normal. Range of motion is unencumbered. Diagnosis-right volar wrist ganglion cysts/clinical carpal tunnel syndrome. Plan-x-ray right wrist. EMG/NCS right arm. Return following investigation. OTC NSAIDs in interim. documented in this encounter Plan of Treatment Not on file documented as of this encounter Visit Diagnoses Diagnosis Ganglion of right wrist- Primary Carpal tunnel syndrome of right wrist documented in this encounter Care Teams Podiatry Assistant Relationship Specialty Start Date End Date Malcolm Burrell MD [address] [place] [address] PCP - General 08/19/16 11/02/21 documented as of this encounter
--- OUTSIDE RECORDS SUMMARY | 2024-04-17 14:01 | XMS_ITS | Encounter Summary ---
Author Organization [facility] Address [address] [place] [address] Phone Care Team Providers Care Lawn Mower Repairer Name Role Phone Malcolm Burrell MD Primary Care Provider [phone] Encounter Details Date Type Department Care Team (Late st Contact Info) Description 01/16/2018 Orders Only [facility] [address] [place] [address] Trent Blanton MD [address] [place] [address] Social History Tobacco Use Types Packs/Day Years Used Date Smoking Tobacco: Unknown Comments Unknown Sex and Gender Information Value Date Recorded Sex Assigned at Not on file Legal Sex Female 3:07 AM FILTER PULP WASHER Gender Identity Not on file Sexual Orientation Not on file documented as of this encounter Plan of Treatment Not on file documented as of this encounter Procedures Procedure Name Priority Date/Time Associated Diagnosis Comments SCAN - NEUROLOGY 01/16/2018 4:05 PM CDT documented in this encounter Results * SCAN - NEUROLOGY (01/16/2018 4:05 PM CDT) Anatomical Region Laterality Modality Other us Trent Blanton MD Edited Result - Final documented in this encounter Visit Diagnoses Not on filedocumented in this encounter Care Teams Lawn Mower Repairer Relationship Specialty Start Date End Date Malcolm Burrell MD [address] [place], [place] [id number] PCP - General 08/19/16 11/02/21 documented as of this encounter
--- OUTSIDE RECORDS SUMMARY | 2024-04-17 14:02 | XMS_ITS | Encounter Summary ---
Author Organization [facility] Healthcare Address [address] [place] [address] Care Team Providers Care Solar Installation Technician Name Role Phone Unavailable Primary Care Provider Unavailabl e Encounter Details Date Type Department Care Team (Late st Contact Info) Description 07/27/2007 4:52 PM CDT - 07/27/2007 11:59 PM CDT Hospital Encounter [facility] Keri Forde Social History Tobacco Use Types Packs/Day Years Used Date Smoking Tobacco: Never Assessed Comments Unknown Sex and Gender Information Value Date Recorded Sex Assigned at Not on file Legal Sex Female 3:07 AM GUM MIXER Gender Identity Not on file Sexual Orientation Not on file documented as of this encounter Plan of Treatment Not on file documented as of this encounter Visit Diagnoses Not on filedocumented in this encounter
--- OUTSIDE RECORDS SUMMARY | 2024-04-17 14:03 | XMS_ITS | Clinical Summary ---
Author Organization [facility] Address [address] [place] [address] Phone Care Team Providers Care Rn Float Name Role Phone GLYNN WHITE MD Unavailable [phone] Reason for Visit and Chief Complaint * [...] Time Diagnosis * PHONE CALL [facility] FIREMAN 8 2:15PM 11:59PM Insurance Includes: Active Insurance Policies Plan Name Member ID Group # Subscriber Relationship Effect jovan Dates - [facility] CLAIMS DEPT [id number] FRANCO RODRIGUEZ Self Clinical Notes Includes: Clinical Notes from this encounter No Clinical Notes Recorded
--- OUTSIDE RECORDS SUMMARY | 2024-04-17 14:03 | XMS_ITS ---
Care Plan - [facility] Created on: April 17, 2024 FRANCO RODRIGUEZ : 1990 Sex: Female Author Organization [facility] Address [address] [place] [address] Phone Care Team Providers Care Director Outcomes Name Role Phone CHRISTOPHER VALLEJO, GLYNN Thapa Unavailable [phone]
--- OUTSIDE RECORDS SUMMARY | 2024-04-17 14:03 | XMS_ITS ---
Author Organization [facility] Address [address] [place] [address] Phone Care Team Providers Care Project Specialist Name Role Phone GLYNN WHITE MD Unavailable [phone] Plan of Treatment No Plan of [...] Subscriber Relationship Effect jovan Dates 1 - [facility] PLAN CLAIMS DEPT [id number] FRANCO RODRIGUEZ Self Clinical Notes Includes: Signed Clinical Notes starting from 05/03/2022 No Clinical Notes Recorded
== END 2024-04-10 11:08 | disposition home or self-care (01) ==
PROVIDERS: Emergency Provider Nurse Practitioner Family; PCP Internal Medicine
DX: H66.92 Otitis media, unspecified, left ear (principal); J01.90 Acute sinusitis, unspecified; K21.9 Gastro-esophageal reflux disease without esophagitis
CPT/HCPCS: 99213; G0463

== ENCOUNTER 2024-07-23 08:21 | Emergency (ER) | payer OTHER, SELFPAY ==
--- OUTSIDE RECORDS SUMMARY | 2024-07-23 08:27 | XMS_ITS | Encounter Summary ---
Author Organization [facility] Address [address] [place] [address] Phone Care Team Providers Care Blurb Writer Name Role Phone Kj Merlos MD Primary Care Provider Tatiana Logan APRN, RECREATION PROGRAM COORDINATOR Unavailable Karen Andino APRN, RECREATION PROGRAM COORDINATOR Unavailable Reason for Visit * Reason Comments Medication Refill Encounter Details Date Type Department Care Team (Late st Contact Info) Description 04/23/2024 Refill [facility] - [facility] - [place] [address] [place] [address] Tatiana Logan APRN, RECREATION PROGRAM COORDINATOR [address] [place] [address] Medication Refill Social History Tobacco Use Types Packs/Day Years Used Date Smoking Tobacco: Light Smoker Cigarettes Smokeless Tobacco: Never Comments:1-2 cigarettes a da y Alcohol Use Standard Drinks/Week Comments Yes 0 (1 standard drink = 0.6 oz pur e alcohol) Rare [facility] Utilities Answer Date Recorded In the past 12 months has [employer] gas, oil, or water company threatened to [...] How often do you attend chur or alevism services? Patient declined 01/15/2024 Do you belong to any clubs o r organizations such as anglican groups, unions, fraternal or athletic groups, or [...] place to sleep or slept in a assisted (including now)? 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 TITATIVE STRATEGY ANALYST documented in this encounter Plan of Treatment Upcoming Encounters Date Type Department Care Team (Late st Contact Info) Description 09/14/2024 9:30 AM CDT Office Visit [facility] [place] [address] [place] [address] Kelin Castle PAC [address] [place] [address] documented as of this encounter Visit Diagnoses Diagnosis Diarrhea, unspecified type Abdominal cramping Abdominal pain, unspecified site documented in this encounter Additional Health Concerns Assessment Noted Time PHQ-9 Depression Total Score: 8 01/15/20 24 4:34 PM CDT documented as of this encounter Care Teams Blurb Writer Relationship Specialty Start Date End Date Kj Merlos MD [address] [address] PCP - General Family Medicine 04/09/21 Tatiana Logan APRN, RECREATION PROGRAM COORDINATOR [address] [place] [address] Nurse Practitioner Advanced Practice Nurse 01/29/24 Karen Andino APRN, RECREATION PROGRAM COORDINATOR [address] [place] [address] Nurse Practitioner Cardiology 03/29/24 documented as of this encounter
--- OUTSIDE RECORDS SUMMARY | 2024-07-23 08:27 | XMS_ITS | Encounter Summary ---
Author Organization [facility] Address [address] [place] [address] Phone Care Team Providers Care Principal Statistical Programmer Name Role Phone Kj Merlos MD Primary Care Provider Tatiana Logan APRN, THREAD WEAVER Unavailable Karen Andino APRN, THREAD WEAVER Unavailable Reason for Visit * Reason Comments Medication Refill Encounter Details Date Type Department Care Team (Late st Contact Info) Description 05/15/2024 Refill [facility] - Gastroenterology - [place] #2 [place] [address] Tatiana Logan APRN, THREAD WEAVER [address] [place], [place] [id number] Medication Refill Social History Tobacco Use Types Packs/Day Years Used Date Smoking Tobacco: Light Smoker Cigarettes Smokeless Tobacco: Never Comments:1-2 cigarettes a da y Alcohol Use Standard Drinks/Week Comments Yes 0 (1 standard drink = 0.6 oz pur e alcohol) Rare [facility] Utilities Answer Date Recorded In the past 12 months has [employer], gas, oil, or water company threatened to [...] How often do you attend chur or muslim services? 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 LE POLISHER documented in this encounter Plan of Treatment Upcoming Encounters Date Type Department Care Team (Late st Contact Info) Description 09/14/2024 9:30 AM CDT Office Visit [facility] [place] [address]2 [place] [address] Kelin Castle PAC [address] [place] [address] documented as of this encounter Visit Diagnoses Diagnosis Diarrhea, unspecified type Abdominal cramping Abdominal pain, unspecified site documented in this encounter Additional Health Concerns Assessment Noted Time PHQ-9 Depression Total Score: 8 01/15/20 24 4:34 PM CDT documented as of this encounter Care Teams Principal Statistical Programmer Relationship Specialty Start Date End Date Kj Merlso MD #[address] [address] PCP - General Family Medicine 04/09/21 Tatiana Logan APRN, THREAD WEAVER [address] [place] [address] Nurse Practitioner Advanced Practice Nurse 01/29/24 Karen Andino APRN, THREAD WEAVER [address] [place] [address] Nurse Practitioner Cardiology 03/29/24 documented as of this encounter
--- OUTSIDE RECORDS SUMMARY | 2024-07-23 08:28 | XMS_ITS | Clinical Summary ---
Author Organization [facility] Address [address] [place] [address] Phone Care Team Providers Care Owner Manager Name Role Phone GLYNN WHITE MD Unavailable [phone] Reason for Visit and Chief Complaint * [...] Time Diagnosis * PHONE CALL [facility] DIRECTOR OF ATHLETICS 8 2:15PM 11:59PM Insurance Includes: Active Insurance Policies Plan Name Member ID Group # Subscriber Relationship Effect jovan Dates - [facility] CLAIMS DEPT [id number] FRANCO RODRIGUEZ Self Clinical Notes Includes: Clinical Notes from this encounter No Clinical Notes Recorded
--- OUTSIDE RECORDS SUMMARY | 2024-07-23 08:28 | XMS_ITS ---
Author Organization [facility] Address [address] [place] [address] Phone Care Team Providers Care Warehouse Manager Name Role Phone GLYNN WHITE MD Unavailable [phone] Plan of Treatment No Plan of Treatment Recorded Assessments Includes: Assessments for all patient encounters No Assessments Recorded Medical Equipment - Implanted Devices Includes: Current and historical Devices No Medical Equipment Recorded Medications Administered Includes: Administered Medications in patient's chart No Administered Medications Recorded Results Includes: Results from 07/24/2023 through 07/23/2024 No Results Recorded For Specified Dates History [...] Subscriber Relationship Effect jovan Dates 1 - [facility] CLAIMS DEPT [id number] FRANCO RDORIGUEZ Self Clinical Notes Includes: Signed Clinical Notes starting from 05/03/2022 No Clinical Notes Recorded
--- OUTSIDE RECORDS SUMMARY | 2024-07-23 08:28 | XMS_ITS ---
Author Organization [facility] Address [address] [place] [address] Phone Care Team Providers Care Materials Buyer Name Role Phone Kj Merlos MD Primary Care Provider [phone] Tatiana Logan APRN, GENERAL FOUNDRY WORKER Unavailable Karen Andino APRN, GENERAL FOUNDRY WORKER Unavailable [facility] Status:Enrolled (Active) Start date:03/18/2024 Enrollment date:03/18/2024 Related social drivers of health:Social Connections, Tobacco Use, Financial Resource Strain, Depression, Stress, Food Insecurity, Transportation Needs, Housing Stability, Utilities Continued Care and Services Coordination
--- OUTSIDE RECORDS SUMMARY | 2024-07-23 08:28 | XMS_ITS ---
Care Plan - [facility] Created on: July 23, 2024 FRANCO RODRIGUEZ : 1990 Sex: Female Author Organization [facility] Address [address] [place] [address] Phone Care Team Providers Care Food Products Sales Representative Name Role Phone CHRISTOPHER VALLEJO, GLYNN Thapa Unavailable [phone]
--- OUTSIDE RECORDS SUMMARY | 2024-07-23 08:28 | XMS_ITS | Clinical Summary ---
Author Organization [facility] [address] Address [address] [place] [address] Phone Care Team Providers Care Fashion Director Name Role Phone Kj Merlos MD Primary Care Provider [phone] Allergies Active Allergy Reactions Criticality Noted Date Comments Amoxicillin-Pot Clavulanate Rash Medium 03/11/20 16 Cefaclor Rash Medium 03/11/2016 Codeine Hives,Itching High 12/25/2018 Medications prenat.vits,riana ,tnh-[id number]-rnlgv tabletIndicatio ns: Take 2 tablets by mouth [...] Date Diagnosed Date Third trimester 01/22/2022 Immunizations Immunization Administration Dates Next Due Influenza, Quadrivalent, Spl [...] you attend chur ch or yarsanism services? Never 01/23/2022 Do you belong to any clubs o r organizations such as presybeterian groups, unions, fraternal or athletic groups, or [...] slept in a alf (including now)? No 01/23/2022 Education Answer Date Recorded What is the highest level of school you have completed or the highest degree you have received? 10th grade 01/23/2022 Comments No Sex and Gender Information Value Date Recorded Sex Assigned at Not on file Legal Sex Female 3:07 AM PROC TECH Gender Identity Not on file Sexual Orientation Not on file Obstetrics History Para Term AB IAB SAB Ectopic Multiple Livin g Live Births 3 3 3 0 3 3 Date Outcome GA Total Labor Labor/2nd/3rd Weight Sex Type Anes PTL Noreen A1 A5 Name Clin 2013 Term 3.033 kg (6 lb 11 oz) F Livin g Carly Canno n Delivery Location:[facility] 2016 Term 39w 5d 2h 13m 2h 06m/0h 07m 3.28 kg (7 lb 3.7 oz) F Epidur al N Livin g 8 9 BUITRAGO R, UNKNOW N A (ASHLE Y) Jake villanueva MD Complications:None Delivery Location:[facility]) 2021 Term 39w 6d 3h 47m 3h 17m/0h 27m/0h 03m 2.924 kg (6 lb 7.1 oz) F Vag-S pont Epidur al N Livin g 9 9 BUITRAGO R,GIRL FRANCO Del Castillo r, Nagi corey MD Complications:None Delivery Location:[facility] ([facility]) Last Filed Vital Signs Vital Sign Reading Time Taken Comments Blood Pressure 136/72 01/24/2022 8:03 AM CDT Pulse 69 01/24/2022 8:03 AM CDT Temperature 36.6 C (97.8 F) 01/24/2022 8:03 AM CDT Respiratory Rate 17 01/24/2022 8:03 AM CDT [...] patient's age to complete this topic Insurance [facility] [place] [address] [facility] Advance Directives For more information, please contact: [phone] * Full Code (Latest Code Status on File) Date Activated Date Inactivated Comments 01/22/2022 10:18 PM 01/24/2022 5:59 PM * Full Code Date Activated Date Inactivated Comments 01/22/2022 6:33 AM 01/22/2022 10:18 PM Full CPR in case of cardiopulmonary arrest Care Teams Fashion Director Relationship Specialty Start Date End Date Kj Merlos MD [address] [address] PCP - General 11/03/21
--- OUTSIDE RECORDS SUMMARY | 2024-07-23 08:28 | XMS_ITS | Encounter Summary ---
Author Organization [facility] Address [address] [place] [address] Phone Care Team Providers Care Marketing Content Coordinator Name Role Phone Kj Merlos MD Primary Care Provider [phone] Tatiana Logan APRN, WEATHERIZATION SPECIALIST Unavailable Karen Andino APRN, WEATHERIZATION SPECIALIST Unavailable Reason for Visit * Reason Comments Medication Refill Encounter Details Date Type Department Care Team (Late st Contact Info) Description 07/17/2024 Refill [facility] - Gastroenterology - [place] [address] [place] [address] Tatiana Logan APRN, WEATHERIZATION SPECIALIST [address] [place], [place] [id number] Medication Refill Social History Tobacco Use Types Packs/Day Years Used Date Smoking Tobacco: Light Smoker Cigarettes Smokeless Tobacco: Never Comments:1-2 cigarettes a da y Alcohol Use Standard Drinks/Week Comments Yes 0 (1 standard drink = 0.6 oz pur e alcohol) Rare [facility] Utilities Answer Date Recorded In the past 12 months has [employer], gas, oil, or water company threatened to [...] any clubs o r organizations such as christian groups, unions, fraternal or athletic groups, or [...] Recorded Total Score - Questions 1-9 0 05/15 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 documented in this encounter Plan of Treatment Upcoming Encounters Date Type Department Care Team (Late st Contact Info) Description 09/14/2024 9:30 AM CDT Office Visit [facility] - Family Medicine - [place] [address] [place] [address] Kelin Castle PAC [address] [place] [address] documented as of this encounter Visit Diagnoses Diagnosis Diarrhea, unspecified type Abdominal cramping Abdominal pain, unspecified site documented in this encounter Additional Health Concerns Assessment Noted Time PHQ-9 Depression Total Score: 0 06/02/19 25 10:06 AM APPLE THINNER documented as of this encounter Care Teams Marketing Content Coordinator Relationship Specialty Start Date End Date Kj Merlos MD #[address] [address] PCP - General Family Medicine 04/09/21 Tatiana Logan APRN, WEATHERIZATION SPECIALIST [address] [place] [address] Nurse Practitioner Advanced Practice Nurse 01/29/24 Karen Andino APRN, WEATHERIZATION SPECIALIST [address] [place] [address] Nurse Practitioner Cardiology 03/29/24 documented as of this encounter
--- OUTSIDE RECORDS SUMMARY | 2024-07-23 08:28 | XMS_ITS | Encounter Summary ---
Author Organization [facility] Address [address] [place] [address] Phone Care Team Providers Care Automatic Data Processing Planner Name Role Phone Kj Merlos MD Primary Care Provider Tatiana Logan APRN, STEREOPTIC PROJECTION TOPOGRAPHER Unavailable Karen Andino APRN, STEREOPTIC PROJECTION TOPOGRAPHER Unavailable Reason for Visit * Reason Comments Medication Refill Encounter Details Date Type Department Care Team (Late st Contact Info) Description 12/16/2022 Refill [facility] - Anticoagulation [facility] [address] [place] [address] Kj Merlos MD #[address] [address] Medication Refill Social History Tobacco Use Types [...] PM CDT Legal Sex Female 2:47 AM PERFORMANCE MANAGEMENT CONSULTANT Gender Identity Female 11/25/2022 4:06 PM CDT [...] 11/14/22 Office Visit Ligia Choi APRN, SUZY [facility] [place] 04/30/22 Office Visit Kj Merlos MD [facility] [place] Showing recent visits within past 365 days and meeting all other requirements Future Appointments Date Type Provider Dept 12/19/22 Appointment Clinic[facility] [place] Nurse Charlieyue Eldridge Showing future appointments within next 90 days and meeting all other requirements documented in this encounter Plan of Treatment Upcoming Encounters Date Type Department Care Team (Late st Contact Info) Description 09/14/2024 9:30 AM CDT Office Visit [facility] - Family Medicine - [place] [address] [place] [address] Kelin Castle, [facility] [address] [place] [address] documented as of this encounter Visit Diagnoses Not on filedocumented in this encounter Additional Health Concerns Assessment Noted Time PHQ-9 Depression Total Score: 0 11/15/19 23 2:00 PM CDT documented as of this encounter Care Teams Automatic Data Processing Planner Relationship Specialty Start Date End Date Kj Merlos MD [address] [address] PCP - General Family Medicine 04/09/21 Tatiana Logan APRN, STEREOPTIC PROJECTION TOPOGRAPHER [address] [place] [address] Nurse Practitioner Advanced Practice Nurse 01/29/24 Karen Andino APRN, STEREOPTIC PROJECTION TOPOGRAPHER #2 [facility] [place] [address] Nurse Practitioner Cardiology 03/29/24 documented as of this encounter
--- OUTSIDE RECORDS SUMMARY | 2024-07-23 08:28 | XMS_ITS | Encounter Summary ---
Author Organization [facility] Address [address] [place] [address] Phone Care Team Providers Care Data Visualization Developer Name Role Phone Kj Merlos MD Primary Care Provider [phone] Tatiana Logan APRN, COMPUTER AIDED DRAFTER Unavailable Karen Andino APRN, COMPUTER AIDED DRAFTER Unavailable Encounter Details Date Type Department Care Team (Late st Contact Info) Description 03/03/2024 Telephone [facility] - Gastroenterology - [place] #2 [place] [address] Tatiana Logan APRN, COMPUTER AIDED DRAFTER [address] [place] [address] Social History Tobacco Use Types Packs/Day Years Used Date Smoking Tobacco: Light Smoker Cigarettes Smokeless Tobacco: Never Comments:1-2 cigarettes a da y Alcohol Use Standard Drinks/Week Comments Yes 0 (1 standard drink = 0.6 oz pur e alcohol) Rare [facility] Utilities Answer Date Recorded In the past 12 months has [employer], gas, oil, or water company threatened to [...] often do you attend chur ch or amish services? Patient declined 01/15/2024 Do you belong to any clubs o r organizations such as mu-ism groups, unions, fraternal or athletic groups, or [...] Total Score - Questions 1-9 8 06/2023 [facility] Occupat ional Health - Occupational [...] PM CDT Legal Sex Female 2:47 AM NORMALIZER Gender Identity Female 11/25/2022 4:06 PM CDT [...] have voice mail to leave a message. ALIZER documented in this encounter Plan of Treatment Upcoming Encounters Date Type Department Care Team (Late st Contact Info) Description 09/14/2024 9:30 AM CDT Office Visit [facility] - Family [facility] #2 [place] [address] Kelin Castle, [facility] #[address] [place] [address] documented as of this encounter Visit Diagnoses Not on filedocumented in this encounter Additional Health Concerns Assessment Noted Time PHQ-9 Depression Total Score: 8 01/15/20 24 4:34 PM CDT documented as of this encounter Care Teams Data Visualization Developer Relationship Specialty Start Date End Date Kj Merlos MD [address] [address] PCP - General Family Medicine 04/09/21 Tatiana Logan APRN, COMPUTER AIDED DRAFTER [address] [place] [address] Nurse Practitioner Advanced Practice Nurse 01/29/24 Karen Andino APRN, COMPUTER AIDED DRAFTER [address] [place] [address] Nurse Practitioner Cardiology 03/29/24 documented as of this encounter
--- OUTSIDE RECORDS SUMMARY | 2024-07-23 08:28 | XMS_ITS | Encounter Summary ---
Author Organization [facility] Address [address] [address] Phone Care Team Providers Care Lump Maker Name Role Phone Kj Merlos MD Primary Care Provider [phone] Tatiana Logan APRN, BRIM STIFFENER Unavailable Karen Andino APRN, BRIM STIFFENER Unavailable Reason for Visit * Reason Comments Medication Refill Encounter Details Date Type Department Care Team (Late st Contact Info) Description 06/06/2024 Refill [facility] - Gastroenterology - [place] #2 [place] [address] Tatiana Logan APRN, BRIM STIFFENER [address] [place] [address] Medication Refill Social History Tobacco Use Types Packs/Day Years Used Date Smoking Tobacco: Light Smoker Cigarettes Smokeless Tobacco: Never Comments:1-2 cigarettes a da y Alcohol Use Standard Drinks/Week Comments Yes 0 (1 standard drink = 0.6 oz pur e alcohol) Rare [facility] Utilities Answer Date Recorded In the past 12 months has [employer]), gas, oil, or water company threatened to [...] How often do you attend chur or quaker services? Patient declined 01/15/2024 Do you belong [...] Total Score - Questions 1-9 0 05/15 [facility] of Occupat ional Health - Occupational [...] place to sleep or slept in a usp (including now)? 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 E RIDING COACH OR INSTRUCTOR documented in this encounter Plan of Treatment Upcoming Encounters Date Type Department Care Team (Late st Contact Info) Description 09/14/2024 9:30 AM CDT Office Visit [facility] - [facility] [place] #[address] [place] [address] Kelin Castle PAC [address] [place] [address] documented as of this encounter Visit Diagnoses Diagnosis Diarrhea, unspecified type Abdominal cramping Abdominal pain, unspecified site documented in this encounter Additional Health Concerns Assessment Noted Time PHQ-9 Depression Total Score: 0 06/02/19 25 10:06 AM HORSE RIDING COACH OR INSTRUCTOR documented as of this encounter Care Teams Lump Maker Relationship Specialty Start Date End Date Kj Merlos MD #[address] [address] PCP - General Family Medicine 04/09/21 Tatiana Logan APRN, BRIM STIFFENER [address] [place] [address] Nurse Practitioner Advanced Practice Nurse 01/29/24 Karen Andino APRN, BRIM STIFFENER [address] [place] [address] Nurse Practitioner Cardiology 03/29/24 documented as of this encounter
--- OUTSIDE RECORDS SUMMARY | 2024-07-23 08:28 | XMS_ITS | Clinical Summary ---
Author Organization [facility] Address [address] [place] [address] Phone Care Team Providers Care Spiritual Care Coordinator Name Role Phone Kj Merlos MD Primary Care Provider [phone] Tatiana Logan MOBILE HOME LOT UTILITY WORKER, LIPSTICK MOLDER Unavailable Karen Andino MOBILE HOME LOT UTILITY WORKER, LIPSTICK MOLDER Unavailable Allergies Active Allergy Reactions Criticality Noted Date Comments Amoxicillin-Pot Clavulanate Rash,Itching High 2015 Cefaclor Hives,Rash High 03/11/2016 Codeine Hives,Itching High 12/25/2018 Medications Zafemy 150-35 MCG/24HR PATCH WEEKLY APPLY 1 TOPICALLY ONCE A WEEK FOR 21 DAYS Active triamcinolone (KENALOG) 0.1 % CreamIndication s:Heat rash APPLY CREAM EXTERNALLY TWICE DAILY TO RASH 80 g 10/13/19 24 Active omeprazole (PriLOSEC) 40 MG CAPSULE DELAYED RELEASEIndicati ons:Gastroesoph ageal reflux disease, unspecified whether esophagitis present Take 1 Capsule by mouth daily. 90 Capsule 3 01/29/20 24 Active fluticasone (FLONASE) 50 MCG/ACT Suspension 2 Sprays by Nasal route daily. Use in each nostril as directed. 18.2 mL 02/06/20 24 Active rosuvastatin (CRESTOR) 10 MG Tablet Take 1 Tablet by mouth daily. 90 Tablet 3 05/03/19 25 Active busPIRone (BUSPAR) 5 MG TabletIndicatio ns:Anxiety Take 1 Tablet by mouth nightly as needed (anxiety). 30 Tablet 06/02/19 25 Active methocarbamol (ROBAXIN) 750 MG Tablet Take 1 Tablet by mouth 4 times daily as needed (back pain). 30 Tablet 06/02/19 25 Active venlafaxine (EFFEXOR-XR) 150 MG CAPSULE SR 24 HRIndications:A nxiety Take 1 capsule by mouth once daily 90 Capsule 07/05/19 25 Active busPIRone (BUSPAR) 5 MG TabletIndicatio ns:Anxiety TAKE 1 TABLET BY MOUTH NIGHTLY NEEDED FOR ANXIETY 30 Tablet 07/12/19 25 Active dicyclomine (BENTYL) 20 MG TabletIndicatio ns:Diarrhea, unspecified type,Abdominal cramping TAKE 1 TABLET BY MOUTH EVERY 6 HOURS NEEDED FOR ABDOMINAL CRAMPING/DIARR HEA 90 Tablet 07/20/19 25 Active venlafaxine (EFFEXOR-XR) 150 MG CAPSULE SR 24 HRIndications:A nxiety Take 1 Capsule by mouth daily. 90 Capsule 1 01/15/20 24 025 Discontinued dicyclomine (BENTYL) 20 MG TabletIndicatio ns:Diarrhea, unspecified type,Abdominal cramping TAKE 1 TABLET BY MOUTH EVERY 6 HOURS NEEDED FOR ABDOMINAL CRAMPING/DIARR HEA 90 Tablet 06/07/19 25 025 Discontinued busPIRone (BUSPAR) 5 MG TabletIndicatio ns:Anxiety Take 1 Tablet by mouth nightly as needed (anxiety). 30 Tablet 06/17/19 25 025 Discontinued dicyclomine (BENTYL) 20 MG TabletIndicatio ns:Diarrhea, unspecified type,Abdominal cramping TAKE 1 TABLET BY MOUTH EVERY 6 HOURS NEEDED FOR ABDOMINAL CRAMPING/DIARR HEA 90 Tablet 06/29/19 25 025 Discontinued Active Problems Problem Noted Date Diagnosed [...] Diagnosed Date Resolved Date Acute appendicitis 02/20/2021 1 Encounters Date Type Department Care Team Description 07/17/2024 [facility]ill [facility] [address] [facility] [place] [address] Tatiana Logan APRN, LIPSTICK MOLDER Medication Refill 07/10/2024 [facility] [place] [place] [address] Kj Merlos MD Medication Refill 07/04/2024 [facility] [place] [place] [address] Kelin Castle, PAC Medication Refill 06/28/2024 [facility] [place] [address] Tatiana Logan APRN, LIPSTICK MOLDER Medication Refill 06/16/2024 [facility] [place] [place] [address] Kelin Castle, PAC Medication Refill 06/06/2024 [facility] [place] [address] Tatiana Logan APRN, LIPSTICK MOLDER Medication Refill 06/02/2024 10:00 AM BRAZING MACHINE OPERATOR HELPER [facility] [place] [place] [address] Kelin Castle, SARABJIT Anxiety (Primary Dx); Acute left-sided low back pain, unspecified whether sciatica present Discharge Disposition: Discharged to home or Selfcare 06/02/2024 Travel 05/15/2024 [facility]ill [facility] [address] [facility] [place] [address] Tatiana Logan APRN, SUZY Medication Refill 05/03/2024 Telephone [facility] [address] [facility] [place] [address] Karen Andino APRN, SUZY Results 04/30/2024 Results Follow-Up [facility] Cardiology [facility] [address] [facility] [place] [address] Karen Andino APRN, SUZY Hyperlipidemia, unspecified hyperlipidemia type (Primary Dx) 04/28/2024 9:37 AM BRAZING MACHINE OPERATOR HELPER - 04/28/2024 11:59 PM BRAZING MACHINE OPERATOR HELPER [facility] [address] [place] [address] Karen Andino APRN, SUZY Discharge Disposition: Discharged to home or Selfcare 04/28/2024 Travel from Last 3 Months Immunizations Immunization Administration Dates Next Due DTP Vaccine 12/13/1993,,08/26/1989,1989,03/19/1989 Hib Vaccine,unspecified Formulation 10/16/1990,0 10/14/1990 Influenza Vaccine [...] = 0.6 oz pur e alcohol) Rare [employer] Utilities Answer Date Recorded In the past 12 months has e [employer], gas, oil, or water [employer] threatened to shut off services in your [...] you attend chur ch or gnosticism services? 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 file Not on file Last Filed Vital Signs Vital Sign Reading Time Taken Comments Blood Pressure 120/72 06/02/2024 10:05 AM BRAZING MACHINE OPERATOR HELPER Pulse 82 06/02/2024 10:05 AM BRAZING MACHINE OPERATOR HELPER Temperature 36.1 C (97 F) 06/02/2024 10:05 AM BRAZING MACHINE OPERATOR HELPER Respiratory Rate 16 06/02/2024 10:05 AM BRAZING MACHINE OPERATOR HELPER Oxygen Saturation 98% 06/02/2024 10:05 AM BRAZING MACHINE OPERATOR HELPER Inhaled Oxygen Concentration - - Weight 94.8 kg (209 lb) 06/02/2024 10:05 AM BRAZING MACHINE OPERATOR HELPER Height 152.4 cm (5') 06/02/2024 10:05 AM BRAZING MACHINE OPERATOR HELPER Body Mass Index 40.82 06/02/2024 10:05 AM BRAZING MACHINE OPERATOR HELPER Plan of Treatment Upcoming Encounters Date Type Department Care Team (Late st Contact Info) Description 09/14/2024 9:30 AM CDT [facility] [address] [place] [address] Kelin Castle, PAC [address] [place] [address] Health Maintenance Due Date Last Done Comments [...] Name Priority Date/Time Associated Diagnosis Comments ADULT CV STRESS TREADMILL ECHO Routine 04/28/2024 10:25 AM BRAZING MACHINE OPERATOR HELPER Chest pain, unspecified type from Last 3 Months Results * ADULT CV STRESS TREADMILL ECHO (04/28/2024 10:25 AM BRAZING MACHINE OPERATOR HELPER) Anatomical Region Laterality Modality CARDIO N/A Electrocardiogra phy, Ultrasound Narrative 04/29/2024 3:26 PM BRAZING MACHINE OPERATOR HELPER Stress Echocardiography Report Patient Name JENNIFER GAMEZ Estefania Cabrera 1990 Patient ID (UPI) [id number] Indications: Chest pain. Study Date04/28/2024 Type of Study: Stress procedure: Stress Echo - Exercise. Conclusions Summary 1) Normal exercise stress echocardiogram with normal baseline EF which augmented appropriately with stress. Normal baseline wall motion with no exercise-induced wall motion abnormalities. No exercise-induced ischemic EKG changes, ectopy or arrhythmia. 2) Peak heart rate 166bpm (89% of maximum predicted heart rate). 3) Pt exercised for 12min 01sec on Boris protocol (10.10METS). maximum exercise capacity. 4) Symptoms during exercise: shortness of breath. Test stopped due to: Completion. 5) Normal heart rate recovery post exercise. 6) Normal LV size with wall thickness. Stress Stress Type: Exercise Peak HR: 166 bpm Peak BP: 143/85 mmHg Predicted HR: 185 bpm % of predicted HR: 90 HR BP Product: 08132 Test Duration: 12:02 min Max Exercise: 7 METS Reason for Termination: Dyspnea Stress Protocol:Exercise - Boris +--------+--------+-----+---+----+ +-----+--------+---+--------+--+--- -+--- ---+ !Stage # !Stage !Time !VO2!Work!Speed/Grade!Heart!Blood !RPE!Pain !CP!Pain!Pain ! ! !Name ! ! ! ! !Rate !Pressure! !Location! !Type!Action! +--------+--------+-----+---+----+ +-----+--------+---+--------+--+--- -+--- ---+ !Rest !PRETEST !27:28! !1.7 !1.0/0.0 !80 !109/76 ! ! ! ! ! ! ! !WARM-UP ! ! ! ! ! ! ! ! ! ! ! ! +--------+--------+-----+---+----+ +-----+--------+---+--------+--+--- -+--- ---+ !0.0 !EXERCISE!03:00! !4.6 !1.7/10.0 !137 !124/54 ! ! ! ! ! ! ! !STAGE 1 ! ! ! ! ! ! ! ! ! ! ! ! +--------+--------+-----+---+----+ +-----+--------+---+--------+--+--- -+--- ---+ !1.0 !EXERCISE!06:00! !7.0 !2.5/12.0 !151 !124/54 ! ! ! ! ! ! ! !STAGE 2 ! ! ! ! ! ! ! ! ! ! ! ! +--------+--------+-----+---+----+ +-----+--------+---+--------+--+--- -+--- ---+ !2.0 !EXERCISE!09:00! !1.0 !0.0/14.0 !105 ! ! ! ! ! ! ! ! !STAGE 3 ! ! ! ! ! ! ! ! ! ! ! ! +--------+--------+-----+---+----+ +-----+--------+---+--------+--+--- -+--- ---+ !3.0 !EXERCISE!12:00! !1.0 !0.0/16.0 !80 !143/85 ! ! ! ! ! ! ! !STAGE 4 ! ! ! ! ! ! ! ! ! ! ! ! +--------+--------+-----+---+----+ +-----+--------+---+--------+--+--- -+--- ---+ !4.0 !EXERCISE!12:02! !1.0 !0.0/18.0 !81 ! ! ! ! ! ! ! ! !STAGE 5 ! ! ! ! ! ! ! ! ! ! ! ! +--------+--------+-----+---+----+ +-----+--------+---+--------+--+--- -+--- ---+ !Recovery!RECOVERY!02:38! !1.0 !0.0/0.0 !80 !110/79 ! ! ! ! ! ! +--------+--------+-----+---+----+ +-----+--------+---+--------+--+--- -+--- ---+ Results Resting ECG Normal sinus rhythm. Normal ST segment response without evidence of ischemia. No ectopy or arrhythmia. Stress ECG Sinus tachycardia. No ST segment changes diagnostic of ischemia. Resting Echo Normal left ventricular cavity size and systolic function at baseline, normal regional wall motion at rest, normal ejection fraction. Stress Echo Immediate post exercise: All segments augment normally with decreased left ventricular volume. Symptoms Shortness of breath. No chest pain. Stress Interpretation Overall Impression: Functional Capacity: Conclusion: Contractility Score Rest LV regional wall motion: (0-Not visualized 1-Normal 1'-Hyperkinesis 2-Hypokinesis 3-Akinesis 4-Dyskinesis 5-Aneurysm) Demographics Age 33 Gender Female Race Height 60 in. Weight 200 lbs. BMI 39.06 kg/m^2 Fender Finisher Interpreting Riley Referring Physician Yusuf Physician Procedure Note Yusuf Lin MD - 04/29/2024 Stress Echocardiography Report Patient Name JENNIFER Mac 1990 Patient ID (UPI) [id number] Indications: Chest pain. Study Date04/28/2024 Type of Study: Stress procedure: Stress Echo - Exercise. Conclusions Summary 1) Normal exercise stress echocardiogram with normal baseline EF which augmented appropriately with stress. Normal baseline wall motion with no exercise-induced wall motion abnormalities. No exercise-induced ischemic EKG changes, ectopy or arrhythmia. 2) Peak heart rate 166bpm (89% of maximum predicted heart rate). 3) Pt exercised for 12min 01sec on Boris protocol (10.10METS). maximum exercise capacity. 4) Symptoms during exercise: shortness of breath. Test stopped due to: Completion. 5) Normal heart rate recovery post exercise. 6) Normal LV size with wall thickness. Stress Stress Type: Exercise Peak HR: 166 bpm Peak BP: 143/85 mmHg Predicted HR: 185 bpm % of predicted HR: 90 HR BP Product: [id number] Test Duration: 12:02 min Max Exercise: 7 METS Reason for Termination: Dyspnea Stress Protocol:Exercise - Boris +--------+--------+-----+---+----+ +-----+--------+---+--------+--+--- -+--- ---+ !Stage # !Stage !Time !VO2!Work!Speed/Grade!Heart!Blood !RPE!Pain!CP!Pain!Pain ! ! !Name ! ! ! ! !Rate !Pressure! !Location!!Type!Action! +--------+--------+-----+---+----+ +-----+--------+---+--------+--+--- -+--- ---+ !Rest !PRETEST !27:28! !1.7 !1.0/0.0 !80 !109/76 ! ! !! ! ! ! !WARM-UP ! ! ! ! ! ! ! ! !! ! ! +--------+--------+-----+---+----+ +-----+--------+---+--------+--+--- -+--- ---+ !0.0 !EXERCISE!03:00! !4.6 !1.7/10.0 !137 !124/54 ! ! !! ! ! ! !STAGE 1 ! ! ! ! ! ! ! ! !! ! ! +--------+--------+-----+---+----+ +-----+--------+---+--------+--+--- -+--- ---+ !1.0 !EXERCISE!06:00! !7.0 !2.5/12.0 !151 !124/54 ! ! !! ! ! ! !STAGE 2 ! ! ! ! ! ! ! ! !! ! ! +--------+--------+-----+---+----+ +-----+--------+---+--------+--+--- -+--- ---+ !2.0 !EXERCISE!09:00! !1.0 !0.0/14.0 !105 ! ! ! !! ! ! ! !STAGE 3 ! ! ! ! ! ! ! ! !! ! ! +--------+--------+-----+---+----+ +-----+--------+---+--------+--+--- -+--- ---+ !3.0 !EXERCISE!12:00! !1.0 !0.0/16.0 !80 !143/85 ! ! !! ! ! ! !STAGE 4 ! ! ! ! ! ! ! ! !! ! ! +--------+--------+-----+---+----+ +-----+--------+---+--------+--+--- -+--- ---+ !4.0 !EXERCISE!12:02! !1.0 !0.0/18.0 !81 ! ! ! !! ! ! ! !STAGE 5 ! ! ! ! ! ! ! ! !! ! ! +--------+--------+-----+---+----+ +-----+--------+---+--------+--+--- -+--- ---+ !Recovery!RECOVERY!02:38! !1.0 !0.0/0.0 !80 !110/79 ! ! !! ! ! +--------+--------+-----+---+----+ +-----+--------+---+--------+--+--- -+--- ---+ Results Resting ECG Normal sinus rhythm. Normal ST segment response without evidence of ischemia. No ectopy or arrhythmia. Stress ECG Sinus tachycardia. No ST segment changes diagnostic of ischemia. Resting Echo Normal left ventricular cavity size and systolic function at baseline, normal regional wall motion at rest, normal ejection fraction. Stress Echo Immediate post exercise: All segments augment normally with decreased left ventricular volume. Symptoms Shortness of breath. No chest pain. Stress Interpretation Overall Impression: Functional Capacity: Conclusion: Contractility Score Rest LV regional wall motion: (0-Not visualized 1-Normal 1'-Hyperkinesis 2-Hypokinesis 3-Akinesis 4-Dyskinesis 5-Aneurysm) Demographics Age 33 Gender Female Race Height 60 in. Weight 200 lbs. BMI 39.06 kg/m^2 Fender Finisher Interpreting Lin Referring Physician Yusuf Physician Karen Andino APRN, SUZY IMG ECHO ORDER DREAD Final Result from Last [address] [place] [address] MEDICAID [employer] Advance Directives * Full Code (Latest [...] measures to stabilize the patient. Care Teams Spiritual Care Coordinator Relationship Specialty Start Date End Date Kj Merlos MD [address] [address] PCP - General Family Medicine 04/09/21 Tatiana Logan APRN, LIPSTICK MOLDER [address] [place] [address] Nurse Practitioner Advanced Practice Nurse 01/29/24 Karen Andino APRN, LIPSTICK MOLDER [address] [place] [address] Nurse Practitioner Cardiology 03/29/24
--- OUTSIDE RECORDS SUMMARY | 2024-07-23 08:28 | XMS_ITS | Encounter Summary ---
Author Organization [facility] Address [address] [place] [address] Phone Care Team Providers Care Tree Planter Name Role Phone Kj Merlos MD Primary Care Provider [phone] Tatiana Logan APRN, GENERAL OPERATIONS AGENT Unavailable Karen Andino APRN, GENERAL OPERATIONS AGENT Unavailable Reason for Visit * Reason Comments Medication Refill Encounter Details Date Type Department Care Team (Late st Contact Info) Description 04/03/2024 Refill [facility] - [place] [address]2 [place] [address] Tatiana Logan APRN, GENERAL OPERATIONS AGENT [address] [place] [address] Medication Refill Social History Tobacco Use Types Packs/Day Years Used Date Smoking Tobacco: Light Smoker Cigarettes Smokeless Tobacco: Never Comments:1-2 cigarettes a da y Alcohol Use Standard Drinks/Week Comments Yes 0 (1 standard drink = 0.6 oz pur e alcohol) Rare [facility] Utilities Answer Date Recorded In the past 12 months has e [employer], gas, oil, or water company threatened to [...] How often do you attend chur or mormonism services? 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 GER CLINICAL APPLICATIONS documented in this encounter Plan of Treatment Upcoming Encounters Date Type Department Care Team (Late st Contact Info) Description 09/14/2024 9:30 AM CDT Office Visit [facility] [place] [facility] [address] [place] [address] Kelin Castle PAC [address] [place] [address] documented as of this encounter Visit Diagnoses Diagnosis Diarrhea, unspecified type Abdominal cramping Abdominal pain, unspecified site documented in this encounter Additional Health Concerns Assessment Noted Time PHQ-9 Depression Total Score: 8 01/15/20 24 4:34 PM CDT documented as of this encounter Care Teams Tree Planter Relationship Specialty Start Date End Date Kj Merlos MD #[address] [address] PCP - General Family Medicine 04/09/21 Tatiana Logan APRN, GENERAL OPERATIONS AGENT [address] [place] [address] Nurse Practitioner Advanced Practice Nurse 01/29/24 Karen Andino APRN, GENERAL OPERATIONS AGENT [address] [place] [address] Nurse Practitioner Cardiology 03/29/24 documented as of this encounter
--- OUTSIDE RECORDS SUMMARY | 2024-07-23 08:28 | XMS_ITS | Clinical Summary ---
Author Organization [facility] [employer] Address [address] [place] [address] Care Team Providers Care Fixture Maker Name Role Phone Diana Robles SENIOR HEALTH PHYSICS TECHNICIAN-OUT AND OUT CIGAR MAKER HAND Primary Care Provider Source Comments [facility] Affiliates and Associated Physician Practices is amultiple site organization consisting of ambulatory clinics and hospital sitesin [place], [place], [place] and [place]. This disclosure is being madepursuant to the Care Everywhere program and may not contain all information available regarding this patient. Last updated 18.[facility] [employer] Allergies Active Allergy Reactions Criticality Noted Date [...] Immunizations Name Administration Dates Next Due INFLUENZA VACCINE 03/04/2019 Family History Medical History Relation Name [...] Sex Assigned at Female 06/05/2021 9:56 PM RETAIL RECEIVING CLERK Gender Identity Female 06/05/2021 9:56 PM RETAIL RECEIVING CLERK Sexual Orientation Straight 06/05/2021 9: 56 PM RETAIL RECEIVING CLERK Last Filed Vital Signs Vital Sign Reading Time Taken Comments Blood Pressure 140/81 01/22/2019 1:50 PM CDT Pulse 81 01/22/2019 1:50 PM CDT Temperature 36.2 C (97.2 F) 01/22/2019 1:50 PM CDT Respiratory Rate - - Oxygen Saturation 98% [...] of 3 - 19+ 3-dose series) 12/11/2007 COVID-19 VACCINE (1 - season) 2023 DEPRESSION SCREENING 04/14/2024 INFLUENZA VACCINE (Season Ended) 2024 01/22/2022, 03/04/2019, 01/14/2019, Additional history exists ZOSTER VACCINE (1 of 2) 2038 HIB VACCINE Aged Out No longer eligi ble based on patient's age to complete this topic HPV VACCINE Aged Out No longer eligi ble based on patient's age to complete this topic MENINGOCOCCAL (Group B) VACCINE SHARED DECISION-MAKING Aged Out No longer eligible based on patient's age to complete this topic MENINGOCOCCAL GROUPS A/C/Y/W VACCINE Aged Out No longer eligible based on patient's age to complete this topic PNEUMOCOCCAL VACCINE Aged Out No long er eligible based on patient's age to complete this topic Care Teams Fixture Maker Relationship Specialty Start Date End Date Diana Robles, SENIOR HEALTH PHYSICS TECHNICIAN-OUT AND OUT CIGAR MAKER HAND [address] [facility] [address] [place], [place] [id number] PCP - General 10/22/18
--- OUTSIDE RECORDS SUMMARY | 2024-07-23 08:28 | XMS_ITS | Encounter Summary ---
Author Organization [facility] Address [address] [place] [address] Phone Care Team Providers Care Joint Maker Machine Name Role Phone Kj Merlos MD Primary Care Provider [phone] Tatiana Logan APRN, TICKET COLLECTOR Unavailable Karen Andino APRN, TICKET COLLECTOR Unavailable Reason for Visit * Reason Comments Medication Refill Encounter Details Date Type Department Care Team (Late st Contact Info) Description 06/28/2024 Refill [facility] - [place] [address]2 [place] [address] Tatiana Logan APRN, TICKET COLLECTOR [address] [place] [address] Medication Refill Social History Tobacco Use Types Packs/Day Years Used Date Smoking Tobacco: Light Smoker Cigarettes Smokeless Tobacco: Never Comments:1-2 cigarettes a da y Alcohol Use Standard Drinks/Week Comments Yes 0 (1 standard drink = 0.6 oz pur e alcohol) Rare [facility] Utilities Answer Date Recorded In the past 12 months has [employer], gas, oil, or water company threatened to [...] How often do you attend chur or mandaeism services? 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 documented in this encounter Plan of Treatment Upcoming Encounters Date Type Department Care Team (Late st Contact Info) Description 09/14/2024 9:30 AM CDT Office Visit [facility] - Family Medicine - [place] [address] [place] [address] Kelin Castle PAC [address] [place] [address] documented as of this encounter Visit Diagnoses Diagnosis Diarrhea, unspecified type Abdominal cramping Abdominal pain, unspecified site documented in this encounter Additional Health Concerns Assessment Noted Time PHQ-9 Depression Total Score: 0 06/02/19 25 10:06 AM SHAPING MACHINE OPERATOR documented as of this encounter Care Teams Joint Maker Machine Relationship Specialty Start Date End Date Kj Merlos MD [address] [address] PCP - General Family Medicine 04/09/21 Tatiana Logan APRN, TICKET COLLECTOR [address] [place] [address] Nurse Practitioner Advanced Practice Nurse 01/29/24 Karen Andino APRN, TICKET COLLECTOR [address] [place] [address] Nurse Practitioner Cardiology 03/29/24 documented as of this encounter
--- OUTSIDE RECORDS SUMMARY | 2024-07-23 08:28 | XMS_ITS | Data Portability ---
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 ( torso/hips - not arms discussed. Not available 03/23/2024 11:00:38 Plan of Treatment Reminders Order Date Submit Date Provider Last Modified By Organization Details Last Modified Time Details Appointments None recorded. Lab cytology report, thin prep, smear or scraping, cervical or vaginal 2023 024 [facility], [address], [address], [place], [address], 4 07:17:30 cytology report, thin prep, smear or scraping, cervical or vaginal 2022 023 [facility], [address], [address], [place], [address], 3 07:18:08 cytology report, thin prep, smear or scraping, cervical or vaginal 2021 022 [facility], [address], [address], [place], [address], 2 11:13:15 urinalysis, dipstick 2021 022 In-Office Order, Internal Use Only DO Not Attach Compendium DO Not Attach Compendium, Do Not Delete/merge, [id number] 2 11:46:32 Referral None recorded. Procedures None recorded. Surgeries None recorded. Imaging None recorded. Medication Orders Zafemy 150 mcg-35 mcg/24 hr transdermal patch 2023 024 [facility], [address] [place] [address], [address], 4 11:01:42 Zafemy 150 mcg-35 mcg/24 hr transdermal patch 2022 023 [facility], [address] [place] [address], [address], 3 10:37:33 Ortho Micronor 0.35 mg tablet 2021 022 [facility], [address] [place] [address], [address], 3 09:36:21 Patient TargetsNo targets recorded. Patient Instructions Encounter Date Encounter Id Patient Instructions Last Modified By Organization Details Last Modified Time 01/10/2022 [id number] gestational diabetes: care instructions Not available 01/10/2022 11:39:39 02/12/2022 [id number] depression after childbirth: care instructions Not available 02/12/2022 16:22:20 stress in parent s of infants: care instructions Not available 02/12/2022 16:22:19 edinburgh depression scale* Not available 02/12/2022 16:22:19 03/05/2022 [id number] edinburgh depression scale* Not available 03/05/2022 14:23:54 03/21/2023 [id number] Quitting Tobacco : Care Instructions urner Not available 03/21/2023 10:37:24 03/23/2024 [id number] A healthy lifestyle: care instructions gturner Not [...] n is noted . Not Available [facility] ([facility]) [address], [place], [address], 12/20/2021 16:12:22 12/19/19 22 12/18/2021 urina lysis [...] DO Not Attach Compendium, Do Not Delete/merge, [id number] 01/09/2022 15:12:18 01/11/20 22 01/10/2022 urina lysis , dipst ick Glucose Negati ve Not Available In-Office Order Internal Use Only DO Not Attach Compendium DO Not Attach Compendium, Do Not Delete/merge, [id number] 01/09/2022 15:12:18 02/13/20 22 02/12/2022 edinb urgh postn atal depre ssion scale * Score 0 Not Available In-Office Order Internal Use Only DO Not Attach Compendium DO Not Attach Compendium, Do Not Delete/merge, [id number] 02/12/2022 15:58:50 03/05/20 22 03/13/2022 IGP, RFX APTIM A HPV ASCU diagnosis: Commen t NEGAT ELENA FOR INTRA EPITH ELIAL FREDA Mac OR JENNA WARD . Not Available [facility] ([facility]) [address] [facility] [address], [place], [address], 03/13/2022 11:13:15 03/05/20 22 03/13/2022 IGP, RFX APTIM A HPV ASCU specimen adequacy: Commen t Satis facto ry for evalu ation . Endoc ervic al and/o r squam ous metap lasti c cells (endo cervi riana compo nent) are prese nt. Not Available [facility] ([facility]) [address] [facility] [address], [place], [address], 03/13/2022 11:13:15 03/05/20 22 03/13/2022 IGP, RFX APTIM A HPV ASCU clinician provided ICD10: Commen t Z39.2 Not Available [facility] ([facility]) [address] [facility] [address], [place], [address], 03/13/2022 11:13:15 03/05/20 22 03/13/2022 IGP, RFX APTIM A HPV ASCU performed by: Mauricio Low rd Milldelores r, Cytot belgica knight (ASCP ) Not Available [facility] ([facility]) [address] [place], [address], 03/13/2022 11:13:15 03/05/20 22 03/13/2022 IGP, RFX APTIM A HPV ASCU . . Not Available [facility] ([facility]) [address] [place], [address], 03/13/2022 11:13:15 03/05/20 22 03/13/2022 IGP, RFX [...] ts do occur . Not Available [facility] ([facility]) [address] [place], [address], 03/13/2022 11:13:15 03/05/20 22 03/13/2022 IGP, RFX APTIM A HPV ASCU test methodology: Mauricio knight This liqui d based ThinP rep(R ) pap test was scree rach with the use of an image guide d syste m. Not Available [facility] ([facility]) [address] [place], [address], 03/13/2022 11:13:15 03/05/20 22 03/13/2022 IGP, RFX APTIM A HPV ASCU . Mauricio knight The HPV DNA refle x crite danilo were not met with this speci men resul t there fore, no HPV testi ng was perfo rmed. Not Available [facility] ([facility]) [address] [place], [address], 03/13/2022 11:13:15 03/05/2003/05/2022 edinb urgh postn atal depre ssion scale * Score 0 Not Available In-Office Order Internal Use Only DO Not Attach Compendium DO Not Attach Compendium, Do Not Delete/merge, [id number] 03/05/2022 13:55:14 03/21/20 23 03/25/2023 IGP, RFX APTIM A HPV ASCU diagnosis: Mauricio PARKER FOR INTRA EPITH ELIAL LESIO N OR JENNA WARD . Not Available [facility] ([facility]) [address] [facility] [address], [place], [address], 03/26/2023 07:18:07 03/21/2003/25/2023 IGP, RFX APTIM A HPV ASCU specimen adequacy: Mauricio knight Satis factrupinder faustin for evalu ation . Endoc ervic al and/o r squam ous metap lasti c cells (endo cervi riana compo nent) are prese nt. Not Available [facility] ([facility]) [address] [facility] [address], [place], [address], 03/26/2023 07:18:07 03/21/20 23 03/25/2023 IGP, RFX APTIM A HPV ASCU clinician provided ICD10: Mauricio knight Z01.4 19 Not Available [facility] ([facility]) [address] [facility] [address], [place], [address], 03/26/2023 07:18:07 03/21/20 23 03/25/2023 IGP, RFX APTIM A HPV ASCU performed by: Mauricio nye, Cytot belgica knight (ASCP ) Not Available [facility] ([facility]) [address] [place], [address], 03/26/2023 07:18:07 03/21/20 23 03/25/2023 IGP, RFX APTIM A HPV ASCU . . Not Available [facility] ([facility]) [address] [place], [address], 03/26/2023 07:18:07 03/21/20 23 03/25/2023 IGP, RFX [...] ts do occur . Not Available [facility] ([facility]) [address] [place], [address], 03/26/2023 07:18:07 03/21/20 23 03/25/2023 IGP, RFX APTIM A HPV ASCU test methodology: Commen t This liqui d based ThinP rep(R ) pap test was scree rach with the use of an image guide bereket bradley. Not Available [facility] ([facility]) [address] [place], [address], 03/26/2023 07:18:07 03/21/20 23 03/25/2023 IGP, RFX APTIM A HPV ASCU . Commen t The HPV DNA refle x crite danilo were not met with this speci men resul t there fore, no HPV testi ng was perfo rmed. Not Available [facility] ([facility]) [address] [place], [address], 03/26/2023 07:18:07 03/23/20 24 03/28/2024 IGP, RFX APTIM A HPV ASCU diagnosis: COMMEN T NEGAT ELENA FOR INTRA EPITH ELIAL LESIO N OR MALIG ED . Not Available [facility] ([facility]) [address] [place], [address], 03/29/2024 07:17:30 03/23/20 24 03/28/2024 IGP, RFX APTIM A HPV ASCU specimen adequacy: MAURICIO Knight Satis facto ry for evalu ation . Endoc ervic al and/o r squam ous metap lasti c cells (endo cervi riana compo nent) are prese nt. Not Available [facility] ([facility]) [address] [place], [address], 03/29/2024 07:17:30 03/23/20 24 03/28/2024 IGP, RFX APTIM A HPV ASCU clinician provided ICD10: MAURICIO Knight Z01.4 19 Not Available [facility] ([facility]) [address] [place], [address], 03/29/2024 07:17:30 03/23/20 24 03/28/2024 IGP, RFX APTIM A HPV ASCU performed by: MAURICIO owen, Cytoeugene cardenas t (ASCP ) Not Available [facility] ([facility]) [address] [place], [address], 03/29/2024 07:17:30 03/23/20 24 03/28/2024 IGP, RFX APTIM A HPV ASCU . . Not Available [facility] ([facility]) [address] [place], [address], 03/29/2024 07:17:30 03/23/20 24 03/28/2024 IGP, RFX [...] ts do occur . Not Available [facility] ([facility]) [address] [facility] [address], [place], [address], 03/29/2024 07:17:30 03/23/20 24 03/28/2024 IGP, RFX APTIM A HPV ASCU test methodology: COMMEN T This liqui d based ThinP rep(R ) pap test was phong loyd with the use of an image guide bereket bradley. Not Available [facility] ([facility]) [address] [facility] [address], [place], [address], 03/29/2024 07:17:30 03/23/20 24 03/28/2024 IGP, RFX APTIM A HPV ASCU . COMMEN T The HPV DNA refle x crite danilo were not met with this speci men resul t there fore, no HPV testi ng was perfo rmed. Not Available [facility] ([facility]) [address] [facility] [address], [place], [address], 03/29/2024 07:17:30 Result Notes None recorded. Problems Name Problem SNOMED Code Status Onset Date Resolution Date Notes Provider Name and Address Organization Details Recorded Time Eruption 919086513 Active 2018 MIKALA Che Attn: Accounting ,[address] [place], [address] , [facility] - [facility] 9 16:07:31 Mixed anxiety and depressive disorder 069664808 Active 2018 MIKALA Che Attn: Accounting ,[address] [place], [address] , [place] [facility] 9 09:32:39 Heartburn 48644558 Active 2018 MIKALA Che Attn: Accounting ,[address] [place], [address] , [facility] - [facility] 9 09:32:40 Costal chondritis 40500584 Active Diana Banal, INVENTORY AUDITOR-C Attn: Accounting ,[address] [place], [address] , [facility] - [facility] 6 12:00:40 56807925 Completed 202102/12/2022 Ruth Culver, A null, [place] - [facility] 2 16:00:46 Smoker 45863678 Active 2023 Corrine Dempsey MD Attn: Accounting ,[address] [place], [address] , [facility] - [facility] 4 11:00:47 Low back pain 957834928 Active JEFF CheC Attn: Accounting ,[address] [place], [address] , [facility] - [facility] 6 12:00:40 Anxiety 05963688 Active JEFF CheC Attn: Accounting ,[address] [place], [address] , [facility] - [facility] 6 12:00:40 Strain of trapezius muscle 681728122 Active JEFF CheC Attn: Accounting ,[address] [place], [address] , [facility] - [facility] 6 12:00:40 Cervical syndrome 197868264 Active JEFF CheC Attn: Accounting ,[address] [place], [address] , [facility] - [facility] 6 12:00:40 Allergic cough 134404702 Active JEFF CheC Attn: Accounting ,[address] [place], [address] , [facility] - [facility] 6 14:29:52 Gastroesop hageal reflux disease without esophagiti s 871941955 Active JEFF CheC Attn: Accounting ,[address] [place], [address] , [facility] - [facility] 6 14:29:52 42834628 Completed 201604/17/2017 GRANT Zabala [facility] 2 16:00:46 Nausea and vomiting 30560620 Active 2016 MICHAEL Calvillo [facility] 7 12:24:00 Problem Notes None recorded. Procedures Surgical History Date Name Laterality Status Provider Name and Address Organization Details Recorded Time 03/23/20 24 Date of Last Pap Smear completed Osiris Song RN [facility] 03/29/2024 11:24:11 02/22/20 21 Appendectomy completed GRANT Zabala [facility] 07/26/2021 12:00:53 02/22/20 21 repair of umbilical hernia completed GRANT Zabala [facility] 07/26/2021 12:00:45 04/14/19 00 Tonsillectomy completed Marychuy Leija MA [facility] 09/18/2016 12:15:43 Imaging Results None recorded. Procedure Notes None recorded. Medical Equipment None Reported. Allergies Allergen ID Allergen Name Allergen Category Reaction Reaction Severity Criticality Documentation Date Start Date Code Code System Note Provider Name and Address Organization Details Recorded Time 3290 Ceclor medicatio n rash Not available Not available 03/08/2014 47216 5 RxNorm Not Available Not Available Not Available 3291 Augmentin medicatio n rash Not available Not available 03/08/2014 76803 2 RxNorm Not Available Not Available Not Available 20561 codeine medicatio n Not available Not available Not available 09/18/2016 2670 RxNorm Not Available Not Available Not Available Medications Name Sig Start Date Stop Date [...] Not Available Not Available Sprintec (28) 0.25 mg-0.035 mg tablet TAKE 1 TABLET BY MOUTH [...] kg/m2 126 mm[Hg] 78 mm[Hg] Ruth Culver Ben [facility] 01/10/2022 11:33:33 Date Recorded Body weight Provider Name an d Address Organization Details Last Updated DateTime 01/10/2022 52122.232516 g Corrine Dempsey MD Attn: [place], [address], [place] [facility] 01/10/2022 11:38:56 Date Recorded Body height Body mass index (BMI) Body weight Systolic blood pressure Diastolic blood pressure Provider Name and Address Organization Details Last Updated DateTime 02/12/2022 162.56 cm 34.6 kg/m2 87927.86 2555 g 128 mm[Hg] 82 mm[Hg] GRANT Zabala [facility] 15:59:31 Date Recorded Body height Body mass index (BMI) Body weight Systolic blood pressure Diastolic blood pressure Provider Name and Address Organization Details Last Updated DateTime 03/05/2022 162.56 cm 35.4 kg/m2 56199.03 g 116 mm[Hg] 86 mm[Hg] Ruth Culver [facility] 2 14:01:20 Date Recorded Body height Body mass index (BMI) Body weight Systolic blood pressure Diastolic blood pressure Provider Name and Address Organization Details Last Updated DateTime 03/21/2023 162.56 cm 33.7 kg/m2 11277.46 g 122 mm[Hg] 86 mm[Hg] Ruth Culver [facility] 3 10:33:47 Date Recorded Body height Body mass index (BMI) Body weight Systolic blood pressure Diastolic blood pressure Provider Name and Address Organization Details Last Updated DateTime 03/23/2024 162.56 cm 34.9 kg/m2 72649.68 g 117 mm[Hg] 73 mm[Hg] Ruth Culver [facility] 4 10:42:49 Social History Question Answer Notes LastModified by Organizat ion Details LastModified Time Tobacco Smoking Status Current Some Day Smoker GRANT Zabala [facility] 03/23/2024 10:44:14 What Is Your Level [...] Time Hib, unspecified formulation 1 completed Ruth Culver RMA null, [place] [facility] 12/18/2021 11:46:23 pneumococcal polysaccharide PPV23 1 completed Ruth Culver RMA [place], [place] [facility] 12/18/2021 11:46:23 Hib, unspecified formulation 1 completed Ruth Culver RMA [place], [place] [...] virus, trivalent, PF 4 completed Not Available [facility] 05/01/2019 02:41:29 Influenza, split virus, trivalent, PF 4 completed Not Available [facility] 05/01/2019 02:33:25 Tdap 7 completed Not Available [facility] 05/01/2019 02:34:49 Influenza, split virus, quadrivalent, preservative 8 completed Not Available [facility] 05/01/2019 02:40:57 Influenza, split virus, quadrivalent, preservative 9 completed Not Available [facility] 05/01/2019 02:43:03 Past Encounters Encounter ID Performer Location Encounter Start Date Encounter Closed Date Diagnosis/Indication Diagnosis SNOMED-CT Code Diagnosis ICD10 Code Diagnosis Note [id number] [facility] [address] [place] [address] 03/08/2014 17:18:05 03/14/2014 17:56:57 Costal chondritis 12535894 Administra tion of influenza vaccine 95698128 Influenza vaccine needed 5022258371 [id number] Ingris Johns MA [facility] [address] [place] [address] 07/12/2014 11:48:31 07/12/2014 12:36:47 Low back pain 001498458 Anxiety 53485958 [id number] Inés Koehler [facility] [address] [place] [address] 07/26/2014 11:41:36 07/26/2014 12:08:13 Anxiety 94162809 [id number] Adolfo Miller PA-C [facility] [address] [place] [address] 03/31/2015 11:17:43 03/31/2015 11:58:50 Low back pain 740883116 M54.5 Anxiety 65330117 F41.9 [id number] Adolfo Miller PA-C [facility] [address] [place] [address] 08/28/2015 14:39:27 08/28/2015 15:15:03 Strain of trapezius muscle 480978961 S46.811A [id number] Adolfo Miller PA-C [facility] [address] [place] [address] 09/04/2015 11:17:15 09/04/2015 13:07:40 Strain of trapezius muscle 772707623 S46.811A [id number] Adolfo Miller PA-C [facility] [address] [place] [address] 09/25/2015 16:01:59 09/25/2015 16:31:44 Cervical syndrome 228685135 M53.1 Low back pain 844956871 M54.5 [id number] MIKALA Che ([facility] [address]) [address] [facility] [address] [place] [address] 01/10/2016 11:40:34 01/10/2016 14:32:57 Allergic cough 627224657 R05 Gastroesop hageal reflux disease without esophagitis 414634106 K21.9 [id number] MIKALA Che ([facility] [address]) [address] [facility] [address] [place] [address] 01/24/2016 11:58:47 01/24/2016 16:24:39 Low back strain 110274660 S39.012A Counseled on back strain-Ice /heat alternate to back. Naproxen/F lexeril for pain/tight ness as needed with food. NO heavy lifting x 2 weeks-ambu late often [id number] MIKALA Che ([place] [address]) [address] [facility] [address] [place] [address] 02/21/2016 15:50:41 02/22/2016 10:42:39 Low back pain 662438852 M54.5 Counseled on back pain-Ice/h eat alternate to back. Naproxen/F lexeril for pain/tight ness. Advised to continue home PT, will do MRI and refer to pain management [id number] MIKALA Che ([place] [address]) [address] [facility] [address] [place] [address] 03/20/2016 15:30:58 03/21/2016 09:06:19 Viral gastroenteritis 342720746 A08.4 Counseled on viral gastroente ritis and advised to continue ER medication s, rest, increase fluids. Tylenol/Ib uprofen for pain/fever , humidifier in the house. Use inhaler for wheezing, if no improvemen t or worsening to call office [id number] MD Garett Lenz ([place] [address]) [address] [facility] [address] [place] [address] 09/18/2016 11:29:18 09/18/2016 14:53:21 Normal 56419090 Z34.91 [id number] MD Garett Lenz ([place] [address]) [address] [facility] [place] [address] 11/01/2016 15:04:50 11/01/2016 15:38:10 Normal 10091112 Z34.91 [id number] MD Garett Lenz ([place] [address]) [address] [facility] [place] [address] 11/22/2016 14:58:17 11/22/2016 16:22:01 Normal 38340313 Z34.91 [id number] MD Garett Lenz ([place] [address]) [address] [facility] [place] [address] 12/23/2016 11:20:52 12/23/2016 12:51:17 Normal [id number] Z34.91 [id number] MD Garett Lenz ([place] [address]) [address] [facility] [place] [address] 01/14/2017 10:51:52 01/14/2017 11:59:43 Normal [id number] Z34.83 [id number] MD Garett Lenz ([place] [address]) [address] [facility] [place] [address] 02/04/2017 10:17:06 02/04/2017 13:26:48 Body mass index 30+ - obesity 379650307 Z68.34 Normal 4803701 2 Z34.83 [id number] MD Garett Lenz ([place] [address]) [address] [facility] [place] [address] 02/18/2017 11:20:53 02/25/2017 16:53:36 Normal [id number] Z34.83 [id number] MD Garett Lenz ([place] [address]) [address] [facility] [place] [address] 03/04/2017 14:01:43 03/04/2017 16:04:14 Administration of diphtheria, pertussis, and tetanus vaccine 964435907 Z23 Body mass index 30+ - obesity 647393148 Z68.35 Normal 9404052 2 Z34.83 [id number] MD Garett Lenz ([place] [address]) [address] [facility] [place] [address] 03/11/2017 14:56:39 03/12/2017 14:15:27 Body mass index 30+ - obesity 282984581 Z68.35 Normal 1063505 2 Z34.83 [id number] MD Garett Lenz ([place] [address]) [address] [facility] [place] [address] 03/20/2017 14:41:42 03/21/2017 10:34:27 Body mass index 30+ - obesity 189496651 Z68.35 Normal 6762738 2 Z34.83 [id number] [place] [address] [address] [facility] [place] [address] 03/27/2017 14:57:43 03/27/2017 16:36:04 Normal [id number] Z34.83 [id number] MD Garett Lenz ([place] [address]) [address] [facility] [place] [address] 04/17/2017 16:03:15 04/18/2017 15:10:11 Body mass index 30+ - obesity 506151473 Z68.33 depression 58 057964 O99.817 [id number] MD Garett Lenz ([place] [address]) [address] [facility] [place] [address] 05/15/2017 11:24:54 05/21/2017 11:02:34 Body mass index 30+ - obesity 858488500 Z68.33 care 21218984 8 Z39.0 [id number] MIKALA Che ([place] [address]) [address] [facility] [place] [address] 05/21/2017 14:31:08 05/22/2017 09:03:00 Anxiety 15482777 F41.9 Counseled on anxiety and medication . Encouraged to call for counseling , numbers given. Advised importance of stress reduction- walking, meditation , yoga. Encouraged to seek out help from loved ones and friends to help manage home life. [id number] MIKALA Che ([place] [address]) [address] [facility] [place] [address] 06/09/2017 11:37:34 06/10/2017 11:58:37 Mass of back 729595190 R22.[address] and refer to general surgery for evaluation -OTC Ibuprofen/ Tylenol as needed for pain [id number] MIKALA Che ([place] [address]) [address] [facility] [place] [address] 06/19/2017 10:56:50 06/20/2017 12:24:37 Hypersomnia 92825587 G47.10 Counseled on hypersomni a and testing- Advised healthy diet and exercise-3 0 minutes every day. Good sleep hygiene discussed Anxiety 84390697 F41.9 Counseled on anxiety and medication -will continue Paxil at 10 mg daily. Encouraged to call for counseling , numbers given. Advised importance of stress reduction- walking, meditation , yoga. Encouraged to seek out help from loved ones and friends to help manage home life. [id number] MIKALA Che [address] [place] [address] 09/18/2017 11:25:35 09/19/2017 09:56:05 Anxiety 13317246 F41.9 Counseled on anxiety and medication -will increase Paxil to 20 mg daily. Encouraged to call for counseling , numbers given. Advised importance of stress reduction- walking, meditation , yoga. Encouraged to seek out help from loved ones and friends to help manage home life. [facility] 394601308 R21 [id number] MKIALA Che [address] [place] [address] 10/29/2017 11:40:16 10/29/2017 17:20:43 Anxiety 87017088 F41.9 Counseled on anxiety and medication - continue Paxil 20 mg daily. Encouraged to call for counseling , numbers given. Advised importance of stress reduction- walking, meditation , yoga. Encouraged to seek out help from loved ones and friends to help manage home life. f/u 3 months [id number] MIKALA Che [address] [place] [address] 12/20/2017 12:03:01 12/20/2017 12:26:00 Ganglion of wrist 678736960 M67.439 Referral to ortho-use OTC Aleve/Tyle nol as needed for pain [id number] MIKALA Che [address] [place] [address] 02/05/2018 14:42:16 02/06/2018 12:46:04 Anxiety 13002760 F41.9 Counseled on anxiety and medication - increase Paxil to 30 mg daily. Encouraged to call for counseling , numbers given. Advised importance of stress reduction- walking, meditation , yoga. Encouraged to seek out help from loved ones and friends to help manage home life. f/u 1 month Allergic rhinitis 479585 04 J30.1 Counseled on allergies- Claritin and Flonase daily. Decongesta nt as needed. Stay away from triggers. Shower after being outside. Saline nasal wash as needed. f/u as needed [id number] MD Garett Edouard 14 IM [address] [facility] [place] [address] 03/16/2018 15:06:36 03/17/2018 10:30:09 Anxiety 26103306 F41.9 Counseled on anxiety and medication - will continue Paxil at 30 mg daily. Encouraged to call for counseling , numbers given. Advised importance of stress reduction- walking, meditation , yoga. Encouraged to seek out help from loved ones and friends to help manage home life. f/u 3 months Administra tion of influenza vaccine [id number] Z23 [id number] MIKALA Che 14 [address] [facility] [place] [address] 08/15/2018 12:01:17 08/17/2018 09:29:17 Mass of skin of back 7067608812 62079 R22.2 Will refer back to general surgeon for evaluation -OTC Ibuprofen/ Tylenol as needed Body mass index 30+ - obesity 127276961 Z68.37 Tobacco de pendence syndrome 27408777 F17.989 [id number] MIKALA Che 14 IM [address] [facility] [place] [address] 10/07/2018 15:32:27 10/08/2018 09:25:37 Anxiety 81739518 F41.9 Counseled on anxiety and medication - will stop Paxil and start Effexor. Encouraged to call for counseling , numbers given. Advised importance of stress reduction- walking, meditation , yoga. Encouraged to seek out help from loved ones and friends to help manage home life. f/u 1 month Eruption [id number] R21 [id number] MIKALA Che 14 IM [address] [facility] [place] [address] 11/17/2018 11:23:06 11/18/2018 09:17:02 Gastroesophageal reflux disease without esophagitis 044627248 K21.9 Counseled on GERD and medication . Encouraged low fat diet, alcohol, spicy greasy foods and caffeinate d beverages. Keep head of bed elevated at night. Do not eat 2-3 hours prior to bedtime.f/ u 6 months Anxiety 69885524 F41.9 Counseled on anxiety and medication - will stop Paxil and start Effexor. Encouraged to call for counseling , numbers given. Advised importance of stress reduction- walking, meditation , yoga. Encouraged to seek out help from loved ones and friends to help manage home life. 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 Advised importance of stress reduction- walking, meditation , yoga. Encouraged to seek out help from loved ones and friends to help manage home life. Counseled on seeking help from 911 or go to ER for suicidal or homicidal thoughts. f/u 3 months Heartburn 08732266 R12 Change to pepcid due to recall of ranitidine -if worsening or new issues f/u sooner than 3 months [id number] MIKALA Che 14 IM [address] [facility] [place] [address] 05/11/2019 11:40:33 05/12/2019 12:23:28 Mixed anxiety and depressive disorder 722836060 F41.8 Counseled on anxiety/de pression and medication . Advised importance of stress reduction- walking, meditation , yoga. Encouraged to seek out help from loved ones and friends to help manage home life. Counseled on seeking help from 911 or go to ER for suicidal or homicidal thoughts. f/u 6 months Heartburn 00757433 R12 Counseled on heartburn and medication -if worsening or new issues f/u sooner than 6 months Renewal of prescription 878141933 Z76.0 [id number] Samy Eldridge 14 IM 4 [facility] [place] [address] 08/23/2019 09:41:13 08/24/2019 09:32:19 Low back pain 450845179 M54.5 Uses ibuprofen PRN Gastroesop hageal reflux disease without esophagitis 510704263 K21.9 Mixed anxi ety and depressive disorder 110307642 F41.8 [id number] Samy Eldridge 14 IM [address] [facility] [place] [address] 11/22/2019 09:04:17 11/23/2019 11:19:58 Mixed anxiety and depressive disorder 173687141 F41.8 Gastroesop hageal reflux disease without esophagitis 901442474 K21.9 Adult heal th examination 212277202 Z00.00 Seasonal allergy 8545373 04 J30.2 [id number] MD Garett Lenz 14 OB [address] [facility] [place] [address] 07/11/2021 10:52:59 07/12/2021 09:25:29 Normal 59879886 Z34.83 Hyperemesi s gravidarum 11669458 O21.0 [id number] MD Garett Lenz 14 OB [address] [facility] [place] [address] 07/26/2021 11:27:48 07/27/2021 06:29:39 Normal 70090963 Z34.83 [id number] MD Garett Lenz 14 OB [address] [facility] [place] [address] 08/09/2021 14:03:57 08/10/2021 09:36:03 Normal 90220343 Z34.83 [id number] MD Garett Lenz 14 OB [address] [facility] [place] [address] 08/30/2021 11:29:05 08/31/2021 11:29:27 Normal 53170969 Z34.83 [id number] MD Garett Lenz 14 OB [address] [facility] [place] [address] 09/27/2021 13:58:05 09/28/2021 08:31:57 Normal 20990406 Z34.83 [id number] MD Garett Lenz [address] [place] [address] 10/25/2021 09:48:26 10/26/2021 09:13:18 Normal 64866470 Z34.83 [id number] MD Garett Lenz [address] [place] [address] 11/20/2021 14:47:31 11/21/2021 09:38:58 Normal 81476687 Z34.83 Gestationa l diabetes mellitus complicating 3579853441 9106 O24.603 [id number] MD Garett Lenz 14 [address] [facility] [place] [address] 12/04/2021 10:47:28 12/05/2021 09:15:15 Normal 82630667 Z34.83 Gestationa l diabetes mellitus 56973694 O24.749 [id number] MD Garett Lenz [address] [place] [address] 12/18/2021 11:32:45 12/20/2021 11:21:50 Normal 27217198 Z34.83 Administra tion of diphtheria, pertussis, and tetanus vaccine 911506255 Z23 Gestationa l diabetes mellitus 66736434 O24.173 [id number] MD Garett Lenz [address] [place] [address] 01/01/2022 14:51:23 01/04/2022 06:46:26 Normal 81122153 Z34.83 Gestationa l diabetes mellitus 14218867 O24.976 [id number] MD Garett Lenz [address] [place] [address] 01/10/2022 10:52:02 01/11/2022 07:27:06 Normal 57656333 Z34.83 Gestationa l diabetes mellitus 30767410 O24.865 [id number] MD Garett Lenz [address] [place] [address] 02/12/2022 15:40:21 02/18/2022 09:55:21 care 423100704 Z39.2 depression 58 642167 O99.345 Contracept ion care management 773079342 Z30.9 [id number] MD Garett Lenz 14 OB [address] [facility] [place] [address] 03/05/2022 13:46:02 03/06/2022 17:02:32 care 364272794 Z39.2 [id number] MD Garett Lenz 14 OB [address] [facility] [place] [address] 03/21/2023 10:04:33 03/26/2023 16:00:37 Contraception care management 041518354 Z30.9 Smoker 49107175 F17.200 Gynecologi c examination 84845087 Z01.495 [id number] MD Gartet Lenz 14 OB [address] [facility] [place] [address] 03/23/2024 10:33:13 03/29/2024 13:19:06 Positive screening for depression on PHQ-9 (Patient Health Questionnaire 9) 6169846323 80106 Z13.31 Smoker 74625723 F17.200 Obesity 755969475 E66.9 Gynecologi c examination 29207835 Z01.419 Contracept ion care management 488379978 Z30.9 Health Concerns Section Related Observation LastModified by Organization Detai ls LastModified Time None Recorded Concern Status LastModified by Organization Details LastModified Time None Recorded Advance Directives Directive None Recorded Payers Encounter Date Sequence Insurance Name Policy Number Policy Hancock Covered Member ID Hancock Member ID Guarantor Name 01/10/2022 1 [facility] ON OR AFTER 10/12/20 (MEDICAID REPLACEMENT - HMO) Esther Day [id number] Esther Day 02/12/2022 1 [facility] ON OR AFTER 10/12/20 (MEDICAID REPLACEMENT - HMO) Esther Day [id number] Esther Day 03/05/2022 1 [facility] ON OR AFTER 10/12/20 (MEDICAID REPLACEMENT - HMO) Esther Day [id number] Esther Day 03/21/2023 1 [facility] ON OR AFTER 10/12/20 (MEDICAID REPLACEMENT - HMO) Esther Day [id number] Esther Day 03/23/2024 1 [facility] ON OR AFTER 10/12/20 (MEDICAID REPLACEMENT - HMO) Esther Day [id number] Esther Day Notes Date Note Type Note [...] PMDD Corrine Dempsey MD Attn: Accounting,[address] [place], [address], [facility] 03/21/2023 10:46:25 03/23/2024 text/html Annual GYNReport ed [...] pills Corrine Dempsey MD Attn: Accounting[address] [place], [address], [facility] 03/23/2024 11:01:57 OBGyn Episode Ob Episode Information Episode Created Date Number of Fetuses Patient Bloodtype Patient rh Status Prepregnancy Weight lbs Domestic Partner Domestic Partner Phone Father Name Wardrobe Technician Status 07/12/19 22 1 B Positive CLOSED Fetus Data First Name Last Name Admitted to NICU Weight (g) Sex Living Outcome Pediatric Complications Fetus ID Race Codes Race Delivery Type Khalida Ayers er false 2919.99 85 F true Full Term 13190 2106-3 White Vaginal Zan Calculation Initial Zan Date Initial Exam Date Initial Exam Provider Initial Ultrasound Date Last Menstrual Period Date Ultra Sound Weeks Gestation 01/23/2022 07/11/2021 08/20/2021 04/18/2021 18 Eighteen To Twenty Week Zan Update Ultra Sound Date Fundal Height At Umbil Quickening Date Ultra Sound Latest Weeks Gestation Final Zan Confirmed By Final Zan Confirmed Date Final Zan Date Ultra Sound Latest Days Gestation 0 08/30/2021 01/24/20 22 0 Pre-socorro Flowsheet Flowsheet Date 07/11/2021 Walker Score Blood Edema Fundus Height Fundus Units Glucose Ketones Leukocytes Nitrite Labor Signs Protein Cervic Dilation Cervic Effacement Cervic Station 12 wks 0cm 0% -4 Type Weight in lbs Pre/Post Dialysis Refused With clothes 217.130313307199 BP Diastolic BP Location Tested BP Systolic [...] Weight in lbs Pre/Post Dialysis Refused Stated 212.347802440247 BP Diastolic BP Location Tested BP Systolic [...] in lbs Pre/Post Dialysis Refused With clothes 215.023492754109 BP Diastolic BP Location Tested BP Systolic [...] in lbs Pre/Post Dialysis Refused With clothes 210.822110242729 BP Diastolic BP Location Tested BP Systolic BP Type 80 126 sitting Fetus Heart Rate Present A 152 Present Fetus Movement Comments doing wellgirl #3 on US : M chayo EDC confirmed Flowsheet Date 09/27/2021 Walker Score Blood Edema Fundus Height Fundus Units Glucose Ketones Leukocytes Nitrite Labor Signs Protein Cervic Dilation Cervic Effacement Cervic Station none 22 wks none trace Type Weight in lbs Pre/Post Dialysis Refused With clothes 210.123318960610 BP Diastolic BP Location Tested BP Systolic [...] in lbs Pre/Post Dialysis Refused With clothes 213.744056545084 BP Diastolic BP Location Tested BP Systolic [...] in lbs Pre/Post Dialysis Refused With clothes 213.084811252695 BP Diastolic BP Location Tested BP Systolic [...] in lbs Pre/Post Dialysis Refused With clothes 212.529208701824 BP Diastolic BP Location Tested BP Systolic [...] in lbs Pre/Post Dialysis Refused With clothes 213.890772087733 BP Diastolic BP Location Tested BP Systolic [...] Weight in lbs Pre/Post Dialysis Refused Weight 216.225460369555 BP Diastolic BP Location Tested BP Systolic [...] in lbs Pre/Post Dialysis Refused With clothes 219.691610374016 BP Diastolic BP Location Tested BP Systolic [...] in lbs Pre/Post Dialysis Refused With clothes 201.823565479348 BP Diastolic BP Location Tested BP Systolic [...] Estim ated Date of Delivery false Thalassemia (Bolivian, Nicaraguan, Mediterranean, Or Background): MCV < 80 false Neural Tube Defect (Meningomyelocele, Spina Bifi da, Or Anencephaly) false Congenital Heart Defect false Down Syndrome false Jose F-Sachs (eg, Orthodox, Cajun, Indonesian-Kuwaiti) f alse Raúl Disease false Sickle Cell Disease Or Trait () false Hemophilia Or Other Blood Disorders false Muscular Dystrophy false Cystic Fibrosis false Yaz's Chorea false Mental Retardation/Autism false If Yes, [...] Sterilization Discharge Date Comments 2 Induce d [facility]- idural 39.6 false Corrine Dempsey MD false 01/24/2022 Discharge Information Feeding Method Contraceptive Method Maternal HG B and HCT Levels Combination Ob Episode Information Episode Created Date Number of Fetuses Patient Bloodtype Patient rh Status Prepregnancy Weight lbs Domestic Partner Domestic Partner Phone Father Name Wardrobe Technician Status 09/19/19 17 1 CLOSED Fetus Data First Name Last Name Admitted to NICU Weight (g) Sex Living Outcome Pediatric Complications Fetus ID Race Codes Race Delivery Type 3033.16 9704 F Full Term 12310 Vaginal Zan Calculation Initial Zan Date Initial Exam Date Initial Exam Provider Initial Ultrasound Date Last Menstrual Period Date Ultra Sound Weeks Gestation 0 Eighteen To Twenty Week Zan Update Ultra Sound Date Fundal Height At Umbil Quickening Date Ultra Sound Latest Weeks Gestation Final Zan Confirmed By Final Zan Confirmed Date Final Zan Date Ultra Sound Latest Days Gestation 0 [...] Domestic Partner Domestic Partner Phone Father Name Wardrobe Technician Status 09/19/19 17 1 B Positive Del. @ [facility] CLOS ED Fetus Data First Name Last Name Admitted to NICU Weight (g) Sex Living Outcome Pediatric Complications Fetus ID Race Codes Race Delivery Type Danni Spenc er false 3288.54 2 F true Full Term 94735 2106-3 White Vaginal Zan Calculation Initial Zan Date Initial Exam Date Initial Exam Provider Initial Ultrasound Date Last Menstrual Period Date Ultra Sound Weeks Gestation 04/02/2017 09/18/2016 11/09/2016 06/26/2016 19 Eighteen To Twenty Week Zan Update Ultra Sound Date Fundal Height At Umbil Quickening Date Ultra Sound Latest Weeks Gestation Final Zan Confirmed By Final Zan Confirmed Date Final Zan Date Ultra Sound Latest Days Gestation 0 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 017 0 Pre-socorro Flowsheet Flowsheet Date 09/18/2016 Walker Score Blood Edema Fundus Height Fundus Units Glucose Ketones Leukocytes Nitrite Labor Signs Protein Cervic Dilation Cervic Effacement Cervic Station 0cm 0% -4 Type Weight in lbs Pre/Post Dialysis Refused 193.98904480476 BP Diastolic BP Location Tested BP Systolic [...] Type Weight in lbs Pre/Post Dialysis Refused 196.932541571391 BP Diastolic BP Location Tested BP Systolic [...] Type Weight in lbs Pre/Post Dialysis Refused 199.378315167739 BP Diastolic BP Location Tested BP Systolic [...] Type Weight in lbs Pre/Post Dialysis Refused 201.860556843713 BP Diastolic BP Location Tested BP Systolic [...] Type Weight in lbs Pre/Post Dialysis Refused 198.218104598078 BP Diastolic BP Location Tested BP Systolic [...] Type Weight in lbs Pre/Post Dialysis Refused 199.522750540444 BP Diastolic BP Location Tested BP Systolic [...] Type Weight in lbs Pre/Post Dialysis Refused 204.228739012907 BP Diastolic BP Location Tested BP Systolic [...] Type Weight in lbs Pre/Post Dialysis Refused 207.994747367989 BP Diastolic BP Location Tested BP Systolic [...] Type Weight in lbs Pre/Post Dialysis Refused 206.888653029296 BP Diastolic BP Location Tested BP Systolic [...] Type Weight in lbs Pre/Post Dialysis Refused 204.60029789197 BP Diastolic BP Location Tested BP Systolic BP Type 72 122 sitting Fetus Heart Rate Present A 145 Present Fetus Movement A Yes Comments doing well, if still here ne xt week - cervix check/18 indxn? Flowsheet Date 03/27/2017 Walker Score Blood Edema Fundus Height Fundus Units Glucose Ketones Leukocytes Nitrite Labor Signs Protein Cervic Dilation Cervic Effacement Cervic Station 35 cm 2cm 50% -3 Type Weight in lbs Pre/Post Dialysis Refused 202.501670862896 BP Diastolic BP Location Tested BP Systolic BP Type 78 122 sitting Fetus Heart Rate Present A 154 Present Fetus Movement A Yes Comments Plan induction Friday at [facility] 06/26/16 Flowsheet Date 04/17/2017 Walker Score Blood Edema Fundus Height Fundus Units Glucose Ketones Leukocytes Nitrite Labor Signs Protein Cervic Dilation Cervic Effacement Cervic Station Type Weight in lbs Pre/Post Dialysis Refused 192.931012612337 BP Diastolic BP Location Tested BP Systolic BP Type 78 118 sitting Fetus Heart Rate Present Fetus Movement Comments Menstrual History Last Menstrual Date Menses Monthly On Bcp Conception Prior Menses Frequency Hcg Plus Date Menarche Onset Age 0306/26/2016 Genetic Screening And Infection History Question Response Note Patient's Age Will Be 35 Yea rs Or Older At Estimated Date of Delivery false Thalassemia (Bolivian, Nicaraguan, Mediterranean, Or Background): MCV < 80 false Neural Tube Defect (Meningom yelocele, Spina Bifida, Or Anencephaly) false Congenital Heart Defect false Down Syndrome false Jose F-Sachs (eg, Orthodox, Cajun , Indonesian-Kuwaiti) false Raúl Disease false Sickle Cell Disease Or Trait () false Hemophilia Or Other Blood Disorders false Muscular Dystrophy false Cystic Fibrosis false negative CF howell ier screen 09-30-12 Dahlen's Chorea false Mental Retardation/Autism false If Yes, [...]
--- OUTSIDE RECORDS SUMMARY | 2024-07-23 08:28 | XMS_ITS | Encounter Summary ---
Author Organization [facility] Address [address] [place] [address] Phone Care Team Providers Care Row Boss Hoeing Name Role Phone Kj Merlos MD Primary Care Provider Tatiana Logan APRN, PHARMACY TECHNICIAN INSTRUCTOR Unavailable Karen Andino APRN, PHARMACY TECHNICIAN INSTRUCTOR Unavailable Reason for Visit * Reason Comments Medication Refill Encounter Details Date Type Department Care Team (Late st Contact Info) Description 03/13/2024 Refill [facility] [place] [address] [place] [address] Tatiana Logan APRN, PHARMACY TECHNICIAN INSTRUCTOR [address] [place] [address] Medication Refill Social History Tobacco Use Types Packs/Day Years Used Date Smoking Tobacco: Light Smoker Cigarettes Smokeless Tobacco: Never Comments:1-2 cigarettes a da y Alcohol Use Standard Drinks/Week Comments Yes 0 (1 standard drink = 0.6 oz pur e alcohol) Rare [facility] Utilities Answer Date Recorded In the past 12 months has e Wave - Private Location App, gas, oil, or water company threatened to [...] How often do you attend chur or worship services? 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 OLL CLERK documented in this encounter Plan of Treatment Upcoming Encounters Date Type Department Care Team (Late st Contact Info) Description 09/14/2024 9:30 AM CDT Office Visit [facility] [address] [place] [address] Kelin Castle PAC [address] [place] [address] documented as of this encounter Visit Diagnoses Diagnosis Diarrhea, unspecified type Abdominal cramping Abdominal pain, unspecified site documented in this encounter Additional Health Concerns Assessment Noted Time PHQ-9 Depression Total Score: 8 01/15/20 24 4:34 PM CDT documented as of this encounter Care Teams Row Boss Hoeing Relationship Specialty Start Date End Date Kj Merlos MD [address] [address] PCP - General Family Medicine 04/09/21 Tatiana Logan APRN, PHARMACY TECHNICIAN INSTRUCTOR [address] [place] [address] Nurse Practitioner Advanced Practice Nurse 01/29/24 Karen Andino APRN, PHARMACY TECHNICIAN INSTRUCTOR [address] [place] [address] Nurse Practitioner Cardiology 03/29/24 documented as of this encounter
--- OUTSIDE RECORDS SUMMARY | 2024-07-23 08:28 | XMS_ITS | Referral Summary ---
Author Organization [facility] [address] Address [address] [place] [address] Phone Care Team Providers Care Airplane Flight Attendant Supervisor Name Role Phone Kj Merlos MD Primary Care Provider [phone] Allergies Active Allergy Reactions Criticality Noted Date Comments Amoxicillin-Pot Clavulanate Rash Medium 03/11/20 16 Cefaclor Rash Medium 03/11/2016 Codeine Hives,Itching High 12/25/2018 Medications prenat.vits,riana ,[id number]-[id number] tabletIndicatio ns: Take 2 tablets by mouth [...] often do you attend chur ch or hinduism services? Never 01/23/2022 Do you belong to [...] slept in a intermediate (including now)? No 01/23/2022 Education Answer Date Recorded What is the highest level of school you have completed or the highest degree you have received? 10th grade 01/23/2022 Comments No Sex and Gender Information Value Date Recorded Sex Assigned at Not on file Legal Sex Female 3:07 AM ROVING CHANGER Gender Identity Not on file Sexual Orientation [...] Plan of Treatment Not on file Insurance [facility] Advance Directives For more information, please contact: [phone] * Full Code (Latest Code Status on File) Date Activated Date Inactivated Comments 01/22/2022 10:18 PM 01/24/2022 5:59 PM * Full Code Date Activated Date Inactivated Comments 01/22/2022 6:33 AM 01/22/2022 10:18 PM Full CPR in case of cardiopulmonary arrest Care Teams Airplane Flight Attendant Supervisor Relationship Specialty Start Date End Date Kj Merlos MD [address] [address] PCP - General 11/03/21
--- NOTE | 2024-07-23 08:30 | ED.EAR ---
HPI - Ear Problem General Chief complaint: Ear Stated complaint: Ear Pain Time Seen by Provider: 07/23/24 08:30 Source: patient, RN notes reviewed and old records reviewed Mode of arrival: ambulatory Limitations: no limitations History of Present Illness HPI Narrative: 33-year-old female presents to the [facility] with left ear discomfort /pressure week. Has had right ear does well. No treatment prior to arrival Related Data Home Medications ?Medication ?Instructions ?Recorded ?Confirmed ?Last Taken ?Type venlafaxine 75 mg capsule,extended mg PO 01/12/24 Unknown History release 24 hr buspirone 15 mg tablet mg 07/23/24 Unknown History omeprazole 40 mg capsule,delayed mg 07/23/24 Unknown History release Allergies Allergy/AdvReac Type Severity Reaction Status Date / Time amoxicillin Allergy Unknown RASH Verified 05/01/23 17:39 cefaclor Allergy Unknown RASH Verified 05/01/23 17:39 clavulanic acid Allergy Unknown RASH Verified 05/01/23 17:39 codeine Allergy Unknown Rash Verified 05/01/23 17:39 Review of Systems Review of Systems: All systems reviewed & are unremarkable except as noted in HPI and below Constitutional: Constitutional: Reports no additional constitutional complaints ENT: Reports as per HPI and Reports otalgia Cardiovascular: Cardiovascular: Reports no additional cardiovascular complaints, Denies chest pain and Denies dyspnea Respiratory: Respiratory: Reports no additional respiratory complaints, Denies chest congestion, Denies cough and Denies dyspnea Musculoskeletal: Musculoskeletal: Reports no additional musculoskeletal complaints Integumentary/Breasts: Skin/Breast: Reports system reviewed and no additional complaints, except as docu PMFSH Past Medical History Medical History Anxiety GERD (gastroesophageal reflux disease) IBS (irritable bowel syndrome) No significant medical problems Surgical History Surgical History History of placement of ear tubes History of tonsillectomy Previous back surgery Status post laparoscopic fundoplication Family History Family History Other No significant family history Social History Social History Alcohol intake: current Substance use: never Living arrangements: with family Gender identity (if verbalized by the patient): Female Sexual Orientation (if Verbalized by the Patient): Straight or Heterosexual Spiritual care concerns: No Comments At the time of my signature, I reviewed and agree with the nursing past medical, surgical, social, and family history. There is no relevant family history pertinent to the patient complaint. Exam Const: General: cooperative, healthy appearing, comfortable, no acute distress, well developed, alert and well nourished Nutritional Appearance: well nourished Orientation/consciousness: patient oriented x3 Limitations: no limitations HENMT: Head: normal to inspection Ears: hearing grossly normal bilaterally, external ears normal, EAC's normal, mastoids normal, no periauricular adenopathy and TM abnormal with fluid behind the TM bilateral Eyes: General: appearance normal, both eyes and all related structures Alignment and Position: alignment normal Neck: Neck: normal visual inspection, full ROM, no lymphadenopathy and no meningeal signs Chest: Chest palpation & inspection: normal inspection of the chest Resp: Effort & Inspection: normal respiratory effort and able to speak in complete sentences Auscultation: clear to auscultation bilaterally, no crackles, no rales, no rhonchi and no wheezes Cardio: Rate: regular rate Skin: General skin exam: normal color and no rashes or lesions noted Neuro: General: patient oriented x3, gait normal, moves all extremities and no meningeal signs Cognition (Neuro): normal cognition Speech: normal speech Gait exam (Neuro): Normal gait present Extrem: General: normal to inspection, full ROM, capillary refill normal and normal gait Psych: Appearance: grossly normal and well kempt Mental Status: mental status grossly normal Speech and movement: Normal speech and movement present and Clear speech present Affect: normal affect Attitude: cooperative Course Course Level of Care: Express Care Visit Vital Signs Vital signs: Vital Signs Temperature 97 F L 07/23/24 08:32 Pulse Rate 76 07/23/24 08:32 Respiratory Rate 18 07/23/24 08:32 Blood Pressure 139/82 07/23/24 08:32 Pulse Oximetry 97 07/23/24 08:32 Oxygen Delivery Room Air 07/23/24 08:32 Temperature 97 F L 07/23/24 08:32 Pulse Rate 76 07/23/24 08:32 Respiratory Rate 18 07/23/24 08:32 Blood Pressure 139/82 07/23/24 08:32 Pulse Oximetry 97 07/23/24 08:32 Oxygen Delivery Room Air 07/23/24 08:32 Reviewed Medical Decision Making MDM Narrative Medical decision making narrative: Patient sitting comfortably in exam room. Nontoxic, vitals stable. Patient in no acute distress Patient presents for left ear pressure. Clear fluid noted behind TM. No erythema noted. Patient appropriate for outpatient treatment with close follow-up Discharge instructions reviewed with patient, as well as provided in writing per nursing staff. The instructions also include specific and strict return/GO TO THE ER as well as f/u information. All questions have been answered, and the patient deny any further questions with discharge and discharge plan. Some parts of this dictation were generated by voice recognition software and may contain typographical and/or grammatical inaccuracies. Differential Diagnosis Differential Diagnosis: Otitis media, serous otitis, otitis externa Medical Records Medical records reviewed: Yes I reviewed the external patient's medical records. Vital Signs Vital Signs: Vital Signs Temperature 97 F L 07/23/24 08:32 Pulse Rate 76 07/23/24 08:32 Respiratory Rate 18 07/23/24 08:32 Blood Pressure 139/82 07/23/24 08:32 Pulse Oximetry 97 07/23/24 08:32 Oxygen Delivery Room Air 07/23/24 08:32 Temperature 97 F L 07/23/24 08:32 Pulse Rate 76 07/23/24 08:32 Respiratory Rate 18 07/23/24 08:32 Blood Pressure 139/82 07/23/24 08:32 Pulse Oximetry 97 07/23/24 08:32 Oxygen Delivery Room Air 07/23/24 08:32 Reviewed Lab Data Lab results reviewed: Yes I reviewed the patient's lab results. Labs: Reviewed Critical Care Time Critical Care Time Critical Care Time: No Discharge Plan Discharge Clinical Impression: Acute serous otitis media, bilateral Qualifiers: Recurrence: not specified as recurrent Qualified Code(s): H65.03 - Acute serous otitis media, bilateral Patient Disposition: Home Condition: Stable Instructions: Antibiotic Form, Fluid In The Ear (Serous Otitis Media) (ED) Additional Instructions: It is very important to treat your symptoms. Drink plenty of water, Gatorade, Pedialyte, ice pops or Jell-O. -Alternate Tylenol and Motrin per package directions for fever or pain. You can alternate every 4 hours -Antihistamine medication such as Zyrtec/Claritin/Erica during the day can help improve symptoms. -doing daily nasal irrigations can help relieve pressure your sinuses. Things like a Neti pot -Use Flonase twice a day for 5 days then daily to help reduce the inflammation and dry up your sinuses. -You can also use Mucinex. Be sure to drink plenty of water with this medication at least 8 ounces with every dose and it is important to drink 8 to 10 glasses of water per day. Water is a natural decongestant -Using a vaporizer or humidifier at night will also help thin secretions and help with coughing up phlegm. -Follow up with primary care provider in 7-10 days if condition is not improving - For new or worsening symptoms go directly to the nearest ER Patient Language: Hebrew Prescriptions: No Action venlafaxine 75 mg capsule,extended release 24hr PO omeprazole 40 mg capsule,delayed release(DR/EC) buspirone 15 mg tablet Follow-up/Referrals: Chelita,Kj Triana MD [Primary Care Provider] - 2 Weeks ([facility] follow-up) Stand Alone Forms: Work/School Release IP Time of Disposition: 08:49
--- OUTSIDE RECORDS SUMMARY | 2024-07-23 08:30 | XMS_ITS | Clinical Summary ---
Author Organization [facility] Address [address] [place] [address] Phone Care Team Providers Care Humane Agent Name Role Phone GLYNN WHITE MD Unavailable [phone] Reason for Visit and Chief Complaint * [...] Time Diagnosis * PHONE CALL [facility] DRYWALL CARRIER 8 2:15PM 11:59PM Insurance Includes: Active Insurance Policies Plan Name Member ID Group # Subscriber Relationship Effect jovan Dates - [facility] CLAIMS DEPT [id number] FRANCO RODRIGUEZ Self Clinical Notes Includes: Clinical Notes from this encounter No Clinical Notes Recorded
--- OUTSIDE RECORDS SUMMARY | 2024-07-23 08:30 | XMS_ITS ---
Care Plan - [facility] Created on: July 23, 2024 FRANCO RODRIGUEZ : 1990 Sex: Female Author Organization [facility] Address [address] [place] [address] Phone Care Team Providers Care Master Naval Parachutist Name Role Phone CHRISTOPHER VALLEJO, GLYNN Thapa Unavailable [phone]
--- OUTSIDE RECORDS SUMMARY | 2024-07-23 08:30 | XMS_ITS ---
Author Organization [facility] Address [address] [place] [address] Phone Care Team Providers Care Manifold Operator Name Role Phone GLYNN WHITE MD Unavailable [phone] Plan of Treatment No Plan of [...] Subscriber Relationship Effect jovan Dates 1 - [facility] CLAIMS DEPT [id number] FRANCO RODRIGUEZ Self Clinical Notes Includes: Signed Clinical Notes starting from 05/03/2022 No Clinical Notes Recorded
[2024-07-23 08:32] VITALS: BP 139/82; PULSE 76; RESP 18; TEMP 36.1; O2SAT 97
== END 2024-07-23 08:56 | disposition home or self-care (01) ==
PROVIDERS: Emergency Provider Nurse Practitioner; PCP Internal Medicine
DX: H65.03 Acute serous otitis media, bilateral (principal); K21.9 Gastro-esophageal reflux disease without esophagitis; K58.9 Irritable bowel syndrome, unspecified
CPT/HCPCS: 99211; G0463

== ENCOUNTER 2025-02-27 10:27 | Emergency (ER) | payer OTHER, SELFPAY ==
--- OUTSIDE RECORDS SUMMARY | 2025-02-27 10:29 | XMS_ITS | Encounter Summary ---
Author Organization [facility] Address [address] [place] [address] Phone Care Team Providers Care Hemmer Automatic Name Role Phone Kj Merlos MD Primary Care Provider [phone] Tatiana Logan APRN, SURVEY OPERATIONS DIRECTOR Unavailable Karen Andino APRN, SURVEY OPERATIONS DIRECTOR Unavailable Reason for Visit * Reason Comments Medication Refill Encounter Details Date Type Department Care Team (Late st Contact Info) Description 12/16/2022 Refill [facility] - Anticoagulation Clinic [facility] [address] [place] [address] Kj Merlos MD [address] [address] Medication Refill Social History Tobacco Use Types [...] PM CDT Legal Sex Female 2:47 AM LINUX SECURITY ADMINISTRATOR Gender Identity Female 11/25/2022 4:06 PM [...] [place] 04/30/22 Office Visit Kj [facility] [place] Showing recent visits within past 365 days and meeting all other requirements Future Appointments Date Type Provider Dept 12/19/22 Appointment Clinic, [facility] Nurse Charlieyue [place] Showing future appointments within next 90 days and meeting all other requirements documented in this encounter Plan of Treatment Upcoming Encounters Date Type Department Care Team (Late st Contact Info) Description 05/19/2025 10:30 AM LINUX SECURITY ADMINISTRATOR Office Visit [facility] - Family Medicine - [place] [address] [place] [id number] Ligia Choi APRN, SURVEY OPERATIONS DIRECTOR [address] [address] [address] documented as of this encounter Visit Diagnoses Not on filedocumented in this encounter Additional Health Concerns Assessment Noted Time PHQ-9 Depression Total Score: 0 11/15/19 23 2:00 PM CDT documented as of this encounter Care Teams Hemmer Automatic Relationship Specialty Start Date End Date Kj Merlos MD [address] [address] [address] PCP - General Family Medicine 04/09/21 Tatiana Logan APRN, SURVEY OPERATIONS DIRECTOR [address] [facility] [place] [address] Nurse Practitioner Advanced Practice Nurse 01/29/24 Karen Andino APRN, SURVEY OPERATIONS DIRECTOR [address] [place] [address] Nurse Practitioner Cardiology 03/29/24 documented as of this encounter
--- OUTSIDE RECORDS SUMMARY | 2025-02-27 10:30 | XMS_ITS | Clinical Summary ---
Author Organization [facility] [employer] Address [address] [place] [address] Care Team Providers Care Blind Cleaner Name Role Phone Diana Robles MECHANICAL ENGINEERING MANAGER-PLASMA PROCESSOR Primary Care Provider Source Comments [facility] Affiliates and Associated Physician Practices is amultiple site organization consisting of ambulatory clinics and hospital sitesin [place], [place], [place] and [place]. This disclosure is being madepursuant to the Care Everywhere program and may not contain all information available regarding this patient. Last updated 18.[facility] [employer] Allergies Active Allergy Reactions Criticality Noted Date Comments Augmentin Rash Medium 12/25/2018 Cefaclor Rash Medium 03/11/2016 Codeine Itching 12/25/2018 Medications * Be aware that medications may not be up to date on this document. Alwaysverify current medications with the patient. VITAMIN D, CHOLECALCIFEROL , PO Take 1 tablet by mouth Active cyanocobalamin (VITAMIN B-12) 250 MCG TABS Active SERTRALINE HCL PO Active cyclobenzaprine (FLEXERIL) 10 MG tablet Take 10 mg by mouth every 8 hours as needed 0 9 Active ibuprofen (MOTRIN) 800 MG tablet TAKE 1 TABLET BY MOUTH THREE TIMES DAILY NEEDED WITH FOOD 0 9 Active loratadine (CLARITIN) 10 MG tablet Take 10 mg by mouth once daily 10 9 Active raNITIdine (ZANTAC) 150 MG tablet Take 150 mg by mouth 2 times daily 0 9 Active terbinafine (LAMISIL) 250 MG tablet Take 1 tablet by mouth once daily 42 tablet 9 Active Additional Information Patient not taking.Reported on 05/04/2019 glycopyrrolate (ROBINUL) 2 MG tablet Take up to 4mg bid, titrate per instructions, 30 DS 120 tablet 11 9 Active clotrimazole (LOTRIMIN AF) 1 % cream Apply to rash bid when active, then twice weekly for maintenance 11 9 Active Additional Information Patient not taking.Reported on 05/04/2019 ketoconazole (NIZORAL) 2 % creamIndication s:Tinea pedis of both feet Apply to itchy rash on feet twice daily, or to clear feet twice weekly for maintenance. 30 days supply. 60 g 11 0 Active aluminum chloride (DRYSOL) 20 % solutionIndicat ions:Hyperhidro sis Apply to affected area on feet up to nightly. 30 DS. 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/01/2017 Immunizations Immunization Administration Dates Next Due INFLUENZA VACCINE 03/04/2019 [...] Years Used Date Smoking Tobacco: Former Cigarettes 0 Q uit: 05/04/2018 Smokeless Tobacco: Never Alcohol Use Standard Drinks/Week Comments Yes 0 (1 standard drink = 0.6 oz pur e alcohol) Comments Unknown Sex and Gender Information Value Date Recorded Sex Assigned at Female 06/05/2021 9:56 PM COMPUTER GAME DESIGNER Legal Sex Female 8:25 AM CDT Gender Identity Female 06/05/2021 9:56 PM COMPUTER GAME DESIGNER Sexual Orientation Straight 06/05/2021 9: 56 PM COMPUTER GAME DESIGNER Last Filed Vital Signs Vital Sign Reading [...] Health Maintenance Due Date Last Done Comments HIV SCREENING 12/11/2003 HEPATITIS C SCREENING 12/06/2006 DTAP/TDAP/TD VACCINES (1 - Tdap) 12/11/2007 HEPATITIS B VACCINE (1 of 3 - 19+ 3-dose series) 12/11/2007 Cervical Cancer Screening 2009 PAP SMEAR 2009 HPV VACCINE (1 - 3-dose SCDM series) 12/11/2015 PAP with HPV 2018 DEPRESSION SCREENING 04/14/2024 COVID-19 VACCINE (2024- season) 2024 INFLUENZA VACCINE (#1) 2024 2, 03/04/2019, 01/14/2019, Additional history exists ZOSTER [...] patient's age to complete [place] [address] [facility] ALT Care Teams Blind Cleaner Relationship Specialty Start Date End Date Diana Robles, MECHANICAL ENGINEERING MANAGER-PLASMA PROCESSOR [address] [facility] [address] [place] [phone] PCP - General 10/22/18
--- OUTSIDE RECORDS SUMMARY | 2025-02-27 10:30 | XMS_ITS | Clinical Summary ---
Author Organization [facility] [address] Address [address] [place] [address] Phone Care Team Providers Care Research Physicist Name Role Phone Kj Merlos MD Primary Care Provider [phone] Allergies Active Allergy Reactions Criticality Noted Date Comments Amoxicillin-Pot Clavulanate Rash Medium 03/11/20 16 Cefaclor Rash Medium 03/11/2016 Codeine Hives,Itching High 12/25/2018 Medications prenat.vits,riana ,xmg-ojoh-hhcio tabletIndicatio ns: Take 2 tablets by mouth [...] Cessation:Counseling Given: Not Answered Social Connection and Isolation Panel Answer Date Recorded In a typical week, [...] place to sleep or slept in a jail (including now)? No 01/23/2022 Education Answer Date Recorded What is the highest level of school you have completed or the highest degree you have received? 10th grade 01/23/2022 Comments No Sex and Gender Information Value Date Recorded Sex Assigned at Not on file Legal Sex Female 3:07 AM SCRIPT MANAGER Gender Identity Not on file Sexual Orientation Not on file Obstetrics History Para Term AB IAB SAB Ectopic Multiple Livin g Live Births 3 3 3 0 3 3 Date Outcome GA Total Labor Labor/2nd/3rd Weight Sex Type Anes PTL Noreen A1 A5 Name Clin 2013 Term 3.033 kg (6 lb 11 oz) F Livin g Carly Canno n Delivery Location:[facility] 2016 Term 39w 5d 2h 13m 2h 06m/0h 07m 3.28 kg (7 lb 3.7 oz) F Epidur al N Livin g 8 9 BUITRAGO R, UNKNOW N A (ASHLE Y) Jake villanueva MD Complications:None Delivery Location:[facility] 2021 Term 39w 6d 3h 47m 3h 17m/0h 27m/0h 03m 2.924 kg (6 lb 7.1 oz) F Vag-S pont Epidur al N Livin g 9 9 BUITRAGO R,GIRL FRANCO Del Castillo r, Nagi corey MD Complications:None Delivery Location:[facility] ([facility] Last Filed [...] Plan of Treatment Not on file Insurance [facility] Advance Directives For more information, please contact: [phone] * Full Code (Latest Code Status on File) Date Activated Date Inactivated Comments 01/22/2022 10:18 PM 01/24/2022 5:59 PM * Full Code Date Activated Date Inactivated Comments 01/22/2022 6:33 AM 01/22/2022 10:18 PM Full CPR in case of cardiopulmonary arrest Care Teams Research Physicist Relationship Specialty Start Date End Date Kj Merlos MD [address] [address] [facility] - General 11/03/21
--- OUTSIDE RECORDS SUMMARY | 2025-02-27 10:30 | XMS_ITS | Encounter Summary ---
Author Organization [facility] Address [address] [place] [address] Phone Care Team Providers Care Motion Study Analyst Name Role Phone Kj Merlos MD Primary Care Provider [phone] Tatiana Logan APRN, EMBOSSING MACHINE TENDER Unavailable Karen Andino APRN, EMBOSSING MACHINE TENDER Unavailable Reason for Visit * Reason Comments Medication Refill Encounter Details Date Type Department Care Team (Late st Contact Info) Description 05/15/2024 Refill [facility] - [facility] [address] [place] [address] Tatiana Logan APRN, EMBOSSING MACHINE TENDER [address] [place] [address] Medication Refill Social History Tobacco Use Types Packs/Day Years Used Date Smoking Tobacco: Light Smoker Cigarettes Smokeless Tobacco: Never Comments:1-2 cigarettes a da y Alcohol Use Standard Drinks/Week Comments Yes 0 (1 standard drink = 0.6 oz pur e alcohol) Rare [facility] Utilities Answer Date Recorded In the past 12 months has e electric, gas, oil, or water company threatened to shut off services in your home? Patient declined 01/15/2024 Social Connection and Isolation Panel Answer Date Recorded In a typical week, how many times do you talk on the phone with family, friends, or neighbors? More than three times a week 01/15/2024 How often do you get togethe r with friends or relatives? More than three times a week 01/15/2024 How often do you attend chur or yazidi services? Patient declined 01/15/2024 Do you belong [...] Total Score - Questions 1-9 8 06/2023 [facility] - [...] place to sleep or slept in a detention (including now)? 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 APPLIANCE WASHING MACHINE MECHANIC documented in this encounter Plan of Treatment Upcoming Encounters Date Type Department Care Team (Late st Contact Info) Description 05/19/2025 10:30 AM HOME APPLIANCE WASHING MACHINE MECHANIC Office Visit [facility] - [facility] [address] [place] [address] Ligia Choi APRN, EMBOSSING MACHINE TENDER [address] [address] documented as of this encounter Visit Diagnoses Diagnosis Diarrhea, unspecified type Abdominal cramping Abdominal pain, unspecified site documented in this encounter Additional Health Concerns Assessment Noted Time PHQ-9 Depression Total Score: 8 01/15/20 24 4:34 PM CDT documented as of this encounter Care Teams Motion Study Analyst Relationship Specialty Start Date End Date Kj Merlos MD #[address] [address] PCP - General Family Medicine 04/09/21 Tatiana Logan APRN, EMBOSSING MACHINE TENDER [address] [place] [address] Nurse Practitioner Advanced Practice Nurse 01/29/24 Karen Andino APRN, EMBOSSING MACHINE TENDER [address] [place] [address] Nurse Practitioner Cardiology 03/29/24 documented as of this encounter
--- OUTSIDE RECORDS SUMMARY | 2025-02-27 10:30 | XMS_ITS | Encounter Summary ---
Author Organization [facility] Address [address] [place] [address] Phone Care Team Providers Care Die Tester Name Role Phone Kj Merlos MD Primary Care Provider [phone] Tatiana Logan APRN, COUNCILMAN Unavailable Karen Andino APRN, COUNCILMAN Unavailable Reason for Visit * Reason Comments Medication Refill Encounter Details Date Type Department Care Team (Late st Contact Info) Description 07/17/2024 Refill [facility] - Gastroenterology [facility] [address] [place] [address] Tatiana Logan APRN, COUNCILMAN [address] [place] [address] Medication Refill Social History Tobacco Use Types Packs/Day Years Used Date Smoking Tobacco: Light Smoker Cigarettes Smokeless Tobacco: Never Comments:1-2 cigarettes a da y Alcohol Use Standard Drinks/Week Comments Yes 0 (1 standard drink = 0.6 oz pur e alcohol) Rare [facility] Utilities Answer Date Recorded In the past [...] How often do you attend chur or jew services? Patient declined 01/15/2024 Do you belong [...] Total Score - Questions 1-9 0 05/15 [facility] [...] in a long term (including now)? No 09/15/2023 Housing Stability Vital [...] PM CDT Legal Sex Female 2:47 AM MAGNET MAKER Gender Identity Female 11/25/2022 4:06 PM [...] st Contact Info) Description 05/19/2025 10:30 AM MAGNET MAKER Office Visit [facility] - Family Medicine [facility] [address] [place] [address] Ligia Choi APRN, COUNCILMAN [address] [address] documented as of this encounter Visit Diagnoses Diagnosis Diarrhea, unspecified type Abdominal cramping Abdominal pain, unspecified site documented in this encounter Additional Health Concerns Assessment Noted Time PHQ-9 Depression Total Score: 0 06/02/19 25 10:06 AM MAGNET MAKER documented as of this encounter Care Teams Die Tester Relationship Specialty Start Date End Date Kj Merlos MD #[address] [address] PCP - General Family Medicine 04/09/21 Tatiana Logan APRN, COUNCILMAN [address] [place] [address] Nurse Practitioner Advanced Practice Nurse 01/29/24 Karen Andino APRN, COUNCILMAN [address] [place] [address] Nurse Practitioner Cardiology 03/29/24 documented as of this encounter
--- OUTSIDE RECORDS SUMMARY | 2025-02-27 10:30 | XMS_ITS | Encounter Summary ---
Author Organization [facility] Address [address] [place] [address] Phone Care Team Providers Care Residential Assistant Name Role Phone Kj Merlos MD Primary Care Provider [phone] Tatiana Logan APRN, ALMOND PAN FINISHER Unavailable Karen Andino APRN, ALMOND PAN FINISHER Unavailable Reason for Visit * Reason Comments Medication Refill Encounter Details Date Type Department Care Team (Late st Contact Info) Description 06/06/2024 [facility]ill [facility] - G[facility] [address] [place] [address] Tatiana Logan APRN, ALMOND PAN FINISHER [address] [place] [address] Medication Refill Social History Tobacco Use Types Packs/Day Years Used Date Smoking Tobacco: Light Smoker Cigarettes Smokeless Tobacco: Never Comments:1-2 cigarettes a da y Alcohol Use Standard Drinks/Week Comments Yes 0 (1 standard drink = 0.6 oz pur e alcohol) Rare [facility] Utilities Answer Date Recorded In the past [...] How often do you attend chur or restorationist services? Patient declined 01/15/2024 Do you belong [...] Total Score - Questions 1-9 0 05/15 [facility] - Occupational [...] place to sleep or slept in a skilled nursing (including now)? 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 RA TECHNICIAN documented in this encounter Plan of Treatment Upcoming Encounters Date Type Department Care Team (Late st Contact Info) Description 05/19/2025 10:30 AM CAMERA TECHNICIAN Office Visit [facility] - Family Medicine [facility] [address] [place] [address] Ligia Choi APRN, ALMOND PAN FINISHER [address] [address] documented as of this encounter Visit Diagnoses Diagnosis Diarrhea, unspecified type Abdominal cramping Abdominal pain, unspecified site documented in this encounter Additional Health Concerns Assessment Noted Time PHQ-9 Depression Total Score: 0 06/02/19 25 10:06 AM CAMERA TECHNICIAN documented as of this encounter Care Teams Residential Assistant Relationship Specialty Start Date End Date Kj Merlos MD [address] [address] PCP - General Family Medicine 04/09/21 Tatiana Logan APRN, ALMOND PAN FINISHER [address] [place] [address] Nurse Practitioner Advanced Practice Nurse 01/29/24 Karen Andino APRN, ALMOND PAN FINISHER [address] [place] [address] Nurse Practitioner Cardiology 03/29/24 documented as of this encounter
--- OUTSIDE RECORDS SUMMARY | 2025-02-27 10:30 | XMS_ITS | Encounter Summary ---
Author Organization [facility] Address [address] [place] [address] Phone Care Team Providers Care Manager Data Center Name Role Phone Kj Merlos MD Primary Care Provider [phone] Tatiana Logan APRN, NBA PLAYER Unavailable Karen Andino APRN, NBA PLAYER Unavailable Reason for Visit * Reason Comments Medication Refill Encounter Details Date Type Department Care Team (Late st Contact Info) Description 04/03/2024 Refill [facility] - Gastroenterology [facility] [address] [place] [address] Tatiana Logan APRN, NBA PLAYER [address] [place] [address] Medication Refill Social History Tobacco Use Types Packs/Day Years Used Date Smoking Tobacco: Light Smoker Cigarettes Smokeless Tobacco: Never Comments:1-2 cigarettes a da y Alcohol Use Standard Drinks/Week Comments Yes 0 (1 standard drink = 0.6 oz pur e alcohol) Rare [facility] Utilities Answer Date Recorded In the [...] How often do you attend chur or buddhist services? 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 USSION WELDING MACHINE OPERATOR documented in this encounter Plan of Treatment Upcoming Encounters Date Type Department Care Team (Late st Contact Info) Description 05/19/2025 10:30 AM PERCUSSION WELDING MACHINE OPERATOR Office Visit [facility] - Family Medicine [facility] [address] [place] [address] Ligia Choi APRN, NBA PLAYER [address] [address] documented as of this encounter Visit Diagnoses Diagnosis Diarrhea, unspecified type Abdominal cramping Abdominal pain, unspecified site documented in this encounter Additional Health Concerns Assessment Noted Time PHQ-9 Depression Total Score: 8 01/15/20 24 4:34 PM CDT documented as of this encounter Care Teams Manager Data Center Relationship Specialty Start Date End Date Kj Merlos MD [address] [address] PCP - General Family Medicine 04/09/21 Tatiana Logan APRN, NBA PLAYER [address] [place] [address] Nurse Practitioner Advanced Practice Nurse 01/29/24 Karen Andino APRN, NBA PLAYER [address] [place] [address] Nurse Practitioner Cardiology 03/29/24 documented as of this encounter
--- OUTSIDE RECORDS SUMMARY | 2025-02-27 10:30 | XMS_ITS ---
Author Organization [facility] Address [address] [place] [address] Phone Care Team Providers Care Residential Housekeeper Name Role Phone Kj Merlos MD Primary Care Provider [phone] Tatiana Logan APRN, FINISHER DENTURE Unavailable Karen Andino APRN, FINISHER DENTURE Unavailable [facility] Status:Enrolled (Active) Start date:03/18/2024 Enrollment date:03/18/2024 Related social drivers of health:Social Connections, Tobacco Use, Financial Resource Strain, Depression, Stress, Food Insecurity, Transportation Needs, Housing Stability, Utilities Continued Care and Services Coordination
--- OUTSIDE RECORDS SUMMARY | 2025-02-27 10:30 | XMS_ITS | Encounter Summary ---
Author Organization [facility] Address [address] [place] [address] Phone Care Team Providers Care Shotgun Shell Assembly Machine Adjuster Name Role Phone Kj Merlos MD Primary Care Provider [phone] Tatiana Logan APRN, PAIN MANAGEMENT NURSE Unavailable Karen Andino APRN, PAIN MANAGEMENT NURSE Unavailable Reason for Visit * Reason Comments Medication Refill Encounter Details Date Type Department Care Team (Late st Contact Info) Description 11/24/2024 Refill [facility] - Gastroenterology [facility] [address] [place] [address] Tatiana Logan APRN, PAIN MANAGEMENT NURSE [address] [place] [address] Medication Refill Social History Tobacco Use Types Packs/Day Years Used Date Smoking Tobacco: Former Cigarettes Smokeless Tobacco: Never Comments:Last smoked 2 month s ago Alcohol Use Standard Drinks/Week Comments Yes 0 (1 standard drink = 0.6 oz pur e alcohol) Rare [facility] Utilities Answer Date Recorded In the past 12 months has [employer] electric, gas, oil, or water company threatened [...] often do you attend chur ch or taoism services? Patient declined 01/15/2024 Do you belong [...] Date Recorded Total Score - Questions 1-9 9 10/13 [facility] - Occupational [...] the Last Year Not on file 2023 AUDIT-C Answer Date Recorded Q1: How often do you have a drink containing alcohol? Never 11/01/2024 Q2: How many drinks containi ng alcohol do you have on a typical day when you are drinking? Patient does not drink Q3: How often do you have si x or more drinks on one occasion? Never 11/01/2024 Education Answer Date Recorded What is the highest level of school you have completed or the highest degree you have received? 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 documented in this encounter Plan of Treatment Upcoming Encounters Date Type Department Care Team (Late st Contact Info) Description 05/19/2025 10:30 AM FARMWORKER [employer] Office Visit [facility] - [facility] [address] [place] [address] Ligia Choi APRN, PAIN MANAGEMENT NURSE [address] [address] documented as of this encounter Visit Diagnoses Diagnosis Diarrhea, unspecified type Abdominal cramping Abdominal pain, unspecified site documented in this encounter Additional Health Concerns Assessment Noted Time PHQ-9 Depression Total Score: 9 11/02/19 25 4:18 PM CDT documented as of this encounter Care Teams Shotgun Shell Assembly Machine Adjuster Relationship Specialty Start Date End Date Kj Merlos MD [address] [address] PCP - General Family Medicine 04/09/21 Tatiana Logan APRN, PAIN MANAGEMENT NURSE [address] [place] [address] Nurse Practitioner Advanced Practice Nurse 01/29/24 Karen Andino APRN, SUZY [address] [place] [address] Nurse Practitioner Cardiology 03/29/24 documented as of this encounter
--- OUTSIDE RECORDS SUMMARY | 2025-02-27 10:30 | XMS_ITS | Encounter Summary ---
Author Organization [facility] Address [address] [place] [address] Phone Care Team Providers Care House Painter Name Role Phone Kj Merlos MD Primary Care Provider [phone] Tatiana Logan APRN, LAST REPAIRER Unavailable Karen Andino APRN, LAST REPAIRER Unavailable Reason for Visit * Reason Comments Medication Refill Encounter Details Date Type Department Care Team (Late st Contact Info) Description 08/31/2024 Refill [facility] - Gastroenterology [facility] [address] [place] [address] Tatiana Logan APRN, LAST REPAIRER [address] [place] [address] Medication Refill Social History Tobacco Use Types Packs/Day Years Used Date Smoking Tobacco: Light Smoker Cigarettes Smokeless Tobacco: Never Comments:1-2 cigarettes a da y Alcohol Use Standard Drinks/Week Comments Yes 0 (1 standard drink = 0.6 oz pur e alcohol) Rare [facility] Utilities Answer Date Recorded In the [...] any clubs o r organizations such as taoist groups, unions, fraternal or athletic groups, or [...] Total Score - Questions 1-9 0 05/15 [facility] - Occupational [...] PM CDT Legal Sex Female 2:47 AM SCRAP IRON CUTTER Gender Identity Female 11/25/2022 4:06 PM CDT Sexual Orientation Not on file 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 documented in this encounter Plan of Treatment Upcoming Encounters Date Type Department Care Team (Late st Contact Info) Description 05/19/2025 10:30 AM SCRAP IRON CUTTER Office Visit [facility] - Family [facility] [address] [place] [address] Ligia Choi APRN, LAST REPAIRER [address] [address] documented as of this encounter Visit Diagnoses Diagnosis Diarrhea, unspecified type Abdominal cramping Abdominal pain, unspecified site documented in this encounter Additional Health Concerns Assessment Noted Time PHQ-9 Depression Total Score: 0 06/02/19 25 10:06 AM SCRAP IRON CUTTER documented as of this encounter Care Teams House Painter Relationship Specialty Start Date End Date Kj Merlos MD [address] [address] PCP - General Family Medicine 04/09/21 Tatiana Logan APRN, LAST REPAIRER [address] [place] [address] Nurse Practitioner Advanced Practice Nurse 01/29/24 Karen Andino APRN, LAST REPAIRER [address] [place] [address] Nurse Practitioner Cardiology 03/29/24 documented as of this encounter
--- OUTSIDE RECORDS SUMMARY | 2025-02-27 10:30 | XMS_ITS | Data Portability ---
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 ( torso/hips - not arms discussed. Not available 03/23/2024 11:00:38 Plan of Treatment Reminders Order Date Submit Date Provider Last Modified By Organization Details Last Modified Time Details Appointments None recorded. Lab cytology report, thin prep, smear or scraping, cervical or vaginal 2023 024 [facility], [address], [address], [place], [address], 4 07:17:30 cytology report, thin prep, smear or scraping, cervical or vaginal 2022 023 [facility], [address], [address], [place], [address], 3 07:18:08 cytology report, thin prep, smear or scraping, cervical or vaginal 2021 022 [facility], [address], [place], [address], 2 11:13:15 urinalysis, dipstick 2021 022 In-Office Order, Internal Use Only DO Not Attach Compendium DO Not Attach Compendium, Do Not Delete/merge, [id number] 2 11:46:32 Referral None recorded. Procedures None recorded. Surgeries None recorded. Imaging None recorded. Medication Orders Zafemy 150 mcg-35 mcg/24 hr transdermal patch 2023 024 [facility] [address] [place], [address], 4 11:01:42 Zafemy 150 mcg-35 mcg/24 hr transdermal patch 2022 023 [facility] [address], [address] [place], [address], 3 10:37:33 Ortho Micronor 0.35 mg tablet [facility] [address] [place], [address], 3 09:36:21 Patient TargetsNo targets recorded. Patient Instructions Encounter Date Encounter Id Patient Instructions Last Modified By Organization Details Last Modified Time 01/10/2022 [id number] gestational diabetes: care instructions Not available 01/10/2022 11:39:39 02/12/2022 [id number] depression after childbirth: care instructions Not available 02/12/2022 16:22:20 stress in parent s of infants: care instructions [email or web address] Not available 02/12/2022 16:22:19 edinburgh depression scale* Not available 02/12/2022 16:22:19 03/05/2022 [id number] edinburgh depression scale* gturner Not available 03/05/2022 14:23:54 03/21/2023 [id number] Quitting Tobacco : Care Instructions Not available 03/21/2023 10:37:24 03/23/2024 [id number] A healthy lifestyle: care instructions Not available [...] Contr ol and Preve ntion (CDC) and Nathalie can Congr ess of Obste trici ans [...] n is noted . Not Available [facility] ([facility]) [address], [place], [address], 12/20/2021 16:12:22 12/19/19 22 12/18/2021 urina lysis [...] Attach Compendium, Do Not Delete/merge, 01/01/2022 09:06:46 01/11/2001/1001/10/2022 urina lysis , dipst ick Protein Negati ve Not Available In-Office Order Internal Use Only DO Not Attach Compendium DO Not Attach Compendium, Do Not Delete/merge, [id number] 01/09/2022 15:12:18 01/11/20 22 01/10/2022 urina lysis , dipst ick Glucose Negati ve Not Available In-Office Order Internal Use Only DO Not Attach Compendium DO Not Attach Compendium, Do Not Delete/merge, [id number] 01/09/2022 15:12:18 02/13/20 22 02/12/2022 edinb urgh postn atal depre ssion scale * Score 0 Not Available In-Office Order Internal Use Only DO Not Attach Compendium DO Not Attach Compendium, Do Not Delete/merge, [id number] 02/12/2022 15:58:50 03/05/20 22 03/13/2022 IGP, RFX APTIM A HPV ASCU diagnosis: Commen t GREG ELENA FOR INTRA EPITH ELIAL LESIO N OR JENNA WARD . Not Available [facility] ([facility]) [address], [place], [address], 03/13/2022 11:13:15 03/05/20 22 03/13/2022 IGP, RFX APTIM A HPV ASCU specimen adequacy: Commen t Satis facto ry for evalu ation . Endoc ervic al and/o r squam ous metap lasti c cells (endo cervi riana compo nent) are prese nt. Not Available [facility] ([facility]) [address], [place], [address], 03/13/2022 11:13:15 03/05/20 22 03/13/2022 IGP, RFX APTIM A HPV ASCU clinician provided ICD10: Commen t Z39.2 Not Available [facility] ([facility]) [address], [place], [address], 03/13/2022 11:13:15 03/05/20 22 03/13/2022 IGP, RFX APTIM A HPV ASCU performed by: Mauricio Low rd Milldelores r, Cytot belgica knight (ASCP ) Not Available [facility] ([facility]) [address] [place], [address], 03/13/2022 11:13:15 03/05/20 22 03/13/2022 IGP, RFX APTIM A HPV ASCU . . Not Available [facility] ([facility]) [address] [place], [address], 03/13/2022 11:13:15 03/05/20 22 03/13/2022 IGP, RFX [...] ts do occur . Not Available [facility] ([facility]) [address] [place], [address], 03/13/2022 11:13:15 03/05/20 22 03/13/2022 IGP, RFX APTIM A HPV ASCU test methodology: Mauricio knight This liqui d based ThinP rep(R ) pap test was scree rach with the use of an image guide d syste m. Not Available [facility] ([facility]) [address] [place], [address], 03/13/2022 11:13:15 03/05/20 22 03/13/2022 IGP, RFX APTIM A HPV ASCU . Mauricio knight The HPV DNA refle x crite danilo were not met with this speci men resul t there fore, no HPV testi ng was perfo rmed. Not Available [facility] ([facility]) [address], [place], [address], 03/13/2022 11:13:15 03/05/2003/05/2022 edinb urgh postn atal depre ssion scale * Score 0 Not Available In-Office Order Internal Use Only DO Not Attach Compendium DO Not Attach Compendium, Do Not Delete/merge, [id number] 03/05/2022 13:55:14 03/21/20 23 03/25/2023 IGP, RFX APTIM A HPV ASCU diagnosis: Mauricio PARKER FOR INTRA EPITH ELIAL LESLETTY N OR JENNA WARD . Not Available [facility] ([facility]) [address] [facility], [place], [address], 03/26/2023 07:18:07 03/21/20 23 03/25/2023 IGP, RFX APTIM A HPV ASCU specimen adequacy: Mauricio knight Satis facto ry for evalu ation . Endoc ervic al and/o r squam ous metap lasti c cells (endo cervi riana compo nent) are prese nt. Not Available [facility] ([facility]) [address], [place], [address], 03/26/2023 07:18:07 03/21/20 23 03/25/2023 IGP, RFX APTIM A HPV ASCU clinician provided ICD10: Mauricio knight Z01.4 19 Not Available [facility] ([facility]) [address], [place], [address], 03/26/2023 07:18:07 03/21/20 23 03/25/2023 IGP, RFX APTIM A HPV ASCU performed by: Mauricio nye, Cytot belgica knight (ASCP ) Not Available [facility] ([facility]) [address], [place], [address], 03/26/2023 07:18:07 03/21/20 23 03/25/2023 IGP, RFX APTIM A HPV ASCU . . Not Available [facility] ([facility]) [address] [place], [address], 03/26/2023 07:18:07 03/21/20 23 03/25/2023 IGP, RFX [...] ts do occur . Not Available [facility] ([facility]) [address], [place], [address], 03/26/2023 07:18:07 03/21/20 23 03/25/2023 IGP, RFX APTIM A HPV ASCU test methodology: Commen t This liqui d based ThinP rep(R ) pap test was scree rach with the use of an image guide bereket bradley. Not Available [facility] ([facility]) [address], [place], [address], 03/26/2023 07:18:07 03/21/20 23 03/25/2023 IGP, RFX APTIM A HPV ASCU . Commen t The HPV DNA refle x crite danilo were not met with this speci men resul t there fore, no HPV testi ng was perfo rmed. Not Available [facility] ([facility]) [address] [place], [address], 03/26/2023 07:18:07 03/23/20 24 03/28/2024 IGP, RFX APTIM A HPV ASCU diagnosis: COMMEN T NEGAT ELENA FOR INTRA EPITH ELIAL LESIO N OR MALIG ED . Not Available [facility] ([facility]) [address] [place], [address], 03/29/2024 07:17:30 03/23/20 24 03/28/2024 IGP, RFX APTIM A HPV ASCU specimen adequacy: MAURICIO Knight Satis facto ry for evalu ation . Endoc ervic al and/o r squam ous metap lasti c cells (endo cervi riana compo nent) are prese nt. Not Available [facility] ([facility]) [address] [place], [address], 03/29/2024 07:17:30 03/23/20 24 03/28/2024 IGP, RFX APTIM A HPV ASCU clinician provided ICD10: MAURICIO Knight Z01.4 19 Not Available [facility] ([facility]) [address] [place], [address], 03/29/2024 07:17:30 03/23/20 24 03/28/2024 IGP, RFX APTIM A HPV ASCU performed by: Yandel Fernandez (ASCP ) Not Available [facility] ([facility]) [address] [place], [address], 03/29/2024 07:17:30 03/23/20 24 03/28/2024 IGP, RFX APTIM A HPV ASCU . . Not Available [facility] ([facility]) [address] [place], [address], 03/29/2024 07:17:30 03/23/20 24 03/28/2024 IGP, RFX [...] ts do occur . Not Available [facility] ([facility]) [address] [facility], [place], [address], 03/29/2024 07:17:30 03/23/20 24 03/28/2024 IGP, RFX APTIM A HPV ASCU test methodology: COMMEN T This liqui d based ThinP rep(R ) pap test was phong loyd with the use of an image guide bereket systdelores m. Not Available [facility] ([facility]) [address] [facility] [address], [place], [address], 03/29/2024 07:17:30 03/23/20 24 03/28/2024 IGP, RFX APTIM A HPV ASCU . COMMEN T The HPV DNA refle x crite danilo were not met with this speci men resul t there fore, no HPV testi ng was perfo rmed. Not Available [facility] ([facility]) [address], [place], [address], 03/29/2024 07:17:30 Result Notes None recorded. Problems Name Problem SNOMED Code Status Onset Date Resolution Date Notes Provider Name and Address Organization Details Recorded Time Costal chondritis 40639192 Active MIKALA Che Attn: Accounting ,[address] [place], [address] , [facility] 6 12:00:40 Low back pain 800411124 Active Diana Robles NP-C Attn: Accounting ,[address] [place], [address] , [facility] 6 12:00:40 Anxiety 82074279 Active MIKALA Che Attn: Accounting ,[address] [place], [address] , [facility] 6 12:00:40 Strain of trapezius muscle 035910441 Active MIKALA Che Attn: Accounting ,[address] [place], [address] , [place] [facility] 6 12:00:40 Cervical syndrome 789327141 Active MIKALA Che Attn: Accounting ,[address] [place], [address] , [place] [facility] 6 12:00:40 Allergic cough 511234153 Active MIKALA Che Attn: Accounting ,[address] [place], [address] , [place] [facility] 6 14:29:52 Gastroesop hageal reflux disease without esophagiti s 263652007 Active MIKALA Che Attn: Accounting ,[address] [place], [address] , [place] [facility] 6 14:29:52 07685007 Completed 201604/17/2017 GRANT Zabala [place], [place] [facility] 2 16:00:46 Nausea and vomiting 40517058 Active 2016 Marychuy Leija [place], [place] [facility] 7 12:24:00 Eruption 101714444 Active 2018 MIKALA Che Attn: Accounting ,[address] [place], [address] , [place] [facility] 9 16:07:31 Mixed anxiety and depressive disorder 882405448 Active 2018 MIKALA Che Attn: Accounting ,[address] [place], [address] , [place] [facility] 9 09:32:39 Heartburn 86668871 Active 2018 MIKALA Che Attn: Accounting ,[address] [place], [address] , [place] [facility] 9 09:32:40 29282995 Completed 202102/12/2022 GRANT Zabala [place] [facility] 2 16:00:46 Smoker 52877443 Active 2023 Corrine Dempsey MD Attn: Accounting ,[address] , [place], [address] , [facility] 4 11:00:47 Problem Notes None recorded. Procedures Surgical History Date Name Laterality Status Provider Name and Address Organization Details Recorded Time 03/23/20 24 Date of Last Pap Smear completed Osiris Song [place] [facility] 03/29/2024 11:24:11 02/22/20 21 Appendectomy completed Ruth Culver [facility] 07/26/2021 12:00:53 02/22/20 21 repair of umbilical hernia completed Ruth Culver Ben [facility] 07/26/2021 12:00:45 04/14/19 00 Tonsillectomy completed Marychuy Leija [place] - [facility] 09/18/2016 12:15:43 Imaging Results None recorded. Procedure Notes None recorded. Medical Equipment None Reported. Allergies Allergen ID Allergen Name Allergen Category Reaction Reaction Severity Criticality Documentation Date Start Date Code Code System Note Provider Name and Address Organization Details Recorded Time 3290 Ceclor medicatio n rash Not available Not available 03/08/2014 90200 5 RxNorm MICHAEL Heart, [facility] 4 17:38:50 3291 Augmentin medicatio n rash Not available Not available 03/08/2014 01849 2 RxNorm MICHAEL Heart, [facility] 4 17:38:50 79515 codeine medicatio n Not available Not available Not available 09/18/2016 2670 RxNorm MICHAEL Ramírez, [facility] 7 12:06:22 Medications Name Sig Start Date Stop Date Status Note LastModified by Organization Details LastModified Time penicillin V potassium 250 mg tablet 09/03 completed Not Available Not Available Not Available cyclobenzap rine 10 mg tablet Take 1 tablet every 8 hours by oral route as needed. 07/11 completed Not Available Not Available Not Available buspirone 5 mg tablet TAKE 1 TABLET BY MOUTH NIGHTLY NEEDED FOR ANXIETY active Not Available Not Available No t Available promethazin e-DM 6.25 mg-15 mg/5 mL [...] Available Not Available buspirone 15 mg tablet TAKE 1 TABLET BY MOUTH TWICE DAILY active Not Available Not Available No t Available oxycodone 5 mg tablet 08/22 completed Not Available Not Available Not Available azithromyci n 500 mg tablet Take 1 tablet every day by oral route for 3 days. 05/04 completed Not Available Not Available Not Available Sprintec (28) 0.25 mg-0.035 mg tablet TAKE 1 TABLET BY MOUTH ONCE DAILY 07/11 completed Not Available Not Available Not Available rosuvastati n 10 mg tablet TAKE 1 TABLET BY MOUTH ONCE DAILY active Not Available Not Available No t Available ProAir HFA 90 mcg/actuati on aerosol [...] mcg-35 mcg/24 hr transdermal patch APPLY 1 TOPICALLY ONCE A WEEK FOR 21 DAYS 2024 active Not Available Not Available Not Avai lable Vitals Date Recorded Body weight Provider Name an d Address Organization Details Last Updated DateTime 01/10/2022 84237.921665 g Corrine Dempsey MD Attn: Accounting [facility], [place], [address], [facility] 01/10/2022 11:38:56 Date Recorded Body height Body mass index (BMI) Systolic And Diastolic Provider Name and Address Organization Details Last Updated DateTime 01/10/2022 162.56 cm 37.7 kg/m2 126/78 mm[Hg] Ruth Culver Ben [facility] 01/10/2022 11:33:33 Date Recorded Body height Body mass index (BMI) Body weight Systolic And Diastolic Provider Name and Address Organization Details Last Updated DateTime 02/12/2022 162.56 cm 34.6 kg/m2 26838.862 555 g 128/82 mm[Hg] GRANT Zabala [facility] 02/12/2022 15:59:31 Date Recorded Body height Body mass index (BMI) Body weight Systolic And Diastolic Provider Name and Address Organization Details Last Updated DateTime 03/05/2022 162.56 cm 35.4 kg/m2 14825.03 g 116/86 mm[Hg] Ruth Culver Ben [facility] 03/05/2022 14:01:20 Date Recorded Body height Body mass index (BMI) Body weight Systolic And Diastolic Provider Name and Address Organization Details Last Updated DateTime 03/21/2023 162.56 cm 33.7 kg/m2 66809.46 g 122/86 mm[Hg] Ruth Culver Ben [facility] 03/21/2023 10:33:47 Date Recorded Body height Body mass index (BMI) Body weight Systolic And Diastolic Provider Name and Address Organization Details Last Updated DateTime 03/23/2024 162.56 cm 34.9 kg/m2 25082.68 g 117/73 mm[Hg] GRANT Zabala [facility] 03/23/2024 10:42:49 Social History Question Answer Notes LastModified by Organizat ion Details LastModified Time Tobacco Smoking Status Current Some Day Smoker GRANT Zabala [facility] 03/23/2024 10:44:14 In The 14 Days Before Symptom Onset, [...] For COVID-19? No Information not available 07/11/2021 What Was The Date Of Your Most Recent Tobacco Screening? 03/23/2024 Information not available 03/23/2024 What Is Your Current Pack Years? 10packyears Information not available 07/11/2021 At What Age Did You Start Smoking Tobacco? 23 Information not available 07/11/2021 How Much Tobacco Do You Smoke? No Only When I'm Stressed Information not available 03/23/2024 Has Tobacco Cessation Counseling Been Provided? Yes Information not available 03/23/2024 On What Date Was Tobacco Cessation Counseling Provided? 03/23/2024 Information not available 03/23/2024 How Many Years Have You Smoked Tobacco? 6 Information not available 07/11/2021 Sex: Female Functional Status Question Answer Note LastModified by Organizat ion Details LastModified Time Do you or have you ever used any other forms of tobacco or nicotine? Yes Information not available 03/23/2024 What is your level of alcohol consumption? Occasional sgoforthma Information not available 08/23/2019 Do you or have you ever used smokeless tobacco? Never used smokeless tobacco Information not available 03/23/2024 Do you or have you ever used e-cigarettes or vape? Never used electronic cigarettes Information not available 03/23/2024 Mental Status None recorded. Family History Relationship [...] Vaccine Type Date Status Note Provider Nam delores and Address Organization Details Recorded Time Hib, unspecified formulation 1 completed GRANT [place], [place] [facility] 12/18/2021 11:46:23 pneumococcal polysaccharide PPV23 1 completed [place] [facility] 12/18/2021 11:46:23 Hib, unspecified formulation 1 completed Ruth Abiola, R[place] [facility] 12/18/2021 11:46:23 Influenza, split virus, quadrivalent, PF 7 completed Ruth Abiola[place] [facility] 12/18/2021 11:46:23 OPV, trivalent 1 completed Ruth Abiola, [place] [facility] 12/18/2021 11:46:23 OPV, trivalent 4 completed Ruth Abiola, R[place], [place] [facility] 12/18/2021 11:46:24 OPV, trivalent 0 completed Ruth Abiola, R[place] [facility] 12/18/2021 11:46:24 OPV, trivalent 9 completed Ruth Abiola[place] [facility] 12/18/2021 11:46:24 influenza, whole 6 completed Ruth Abiola, [place] [facility] 12/18/2021 11:46:24 OPV, trivalent 0 completed Ruth Abiola[place] [facility] 12/18/2021 11:46:24 Tdap 2 completed Ruth Abiola[place] [facility] 01/09/2022 15:13:28 Influenza, split virus, quadrivalent, PF 2 completed Ruth Abiola[place] [facility] 02/12/2022 15:51:19 Influenza, split virus, trivalent, PF 4 completed Not Available [facility] 05/01/2019 02:41:29 Influenza, split virus, trivalent, PF 4 completed Not Available [facility] 05/01/2019 02:33:25 Tdap 7 completed Not Available [facility] 05/01/2019 02:34:49 Influenza, split virus, quadrivalent, preservative 8 completed Not Available [facility] 05/01/2019 02:40:57 Influenza, split virus, quadrivalent, preservative 9 completed Not Available [facility] 05/01/2019 02:43:03 Past Encounters Encounter ID Performer Location Encounter Start Date Encounter Closed Date Diagnosis/Indication Diagnosis SNOMED-CT Code Diagnosis ICD10 Code Diagnosis IMO Codes Diagnosis Note [id number] ZEV Escalera [facility] [address] [place] [address] 03/08/2014 17:18:05 03/14/2014 17:56:57 Costal chondritis 46003393 Administra tion of influenza vaccine 02735190 Influenza vaccine needed 5986024573 [id number] Adolfo Miller PA-C [facility] [address] [place] [address] 07/12/2014 11:48:31 07/12/2014 12:36:47 Low back pain 906636122 Anxiety 82652902 [id number] Adolfo Miller PA-C [facility] [address] [place] [address] 07/26/2014 11:41:36 07/26/2014 12:08:13 Anxiety 94318173 [id number] Jean-Paul Anderson MD [facility] [address] [place] [address] 03/31/2015 11:17:43 03/31/2015 11:58:50 Low back pain 957287791 M54.5 Anxiety 05407685 F41.9 [id number] Adolfo Miller PA-C [facility] [address] [place] [address] 08/28/2015 14:39:27 08/28/2015 15:15:03 Strain of trapezius muscle 517829183 S46.811A [id number] Adolfo Miller PA-C [facility] [address] [place] [address] 09/04/2015 11:17:15 09/04/2015 13:07:40 Strain of trapezius muscle 379484658 S46.811A [id number] Adolfo Miller PA-C [facility] [address] [place] [address] 09/25/2015 16:01:59 09/25/2015 16:31:44 Cervical syndrome 894274954 M53.1 Low back pain 072017004 M54.5 [id number] Diana Robles NP-C [facility] ([place] [address]) [address] [place] [address] 01/10/2016 11:40:34 01/10/2016 14:32:57 Allergic cough 416174647 R05 Gastroesop hageal reflux disease without esophagitis 939000171 K21.9 [id number] MD G[facility]tt Rehman ([place] [address]) [address] [place] [address] 01/24/2016 11:58:47 01/24/2016 16:24:39 Low back strain 204771530 S39.012A Counseled on back strain-Ice /heat alternate to back. Naproxen/F lexeril for pain/tight ness as needed with food. NO heavy lifting x 2 weeks-ambu late often [id number] MD Garett Edouard ([place] [address]) [address] [place] [address] 02/21/2016 15:50:41 02/22/2016 10:42:39 Low back pain 230747101 M54.5 Counseled on back pain-Ice/h eat alternate to back. Naproxen/F lexeril for pain/tight ness. Advised to continue home PT, will do MRI and refer to pain management [id number] MD Garett Edouard ([place] [address]) [address] [place] [address] 03/20/2016 15:30:58 03/21/2016 09:06:19 Viral gastroenteritis 332564418 A08.4 Counseled on viral gastroente ritis and advised to continue ER medication s, rest, increase fluids. Tylenol/Ib uprofen for pain/fever , humidifier in the house. Use inhaler for wheezing, if no improvemen t or worsening to call office [id number] MD Garett Lenz ([place] [address]) [address] [place] [address] 09/18/2016 11:29:18 09/18/2016 14:53:21 Normal 90543535 Z34.91 [id number] MD Garett Lenz ([place] [address]) [address] [place] [address] 11/01/2016 15:04:50 11/01/2016 15:38:10 Normal 71624498 Z34.91 [id number] MD Garett Lenz ([place] [address]) [address] [place] [address] 11/22/2016 14:58:17 11/22/2016 16:22:01 Normal 59646086 Z34.91 [id number] MD Garett Lenz ([place] [address]) [address] [place] [address] 12/23/2016 11:20:52 12/23/2016 12:51:17 Normal 47326132 Z34.91 [id number] MD Garett Lenz ([place] [address]) [address] [place] [address] 01/14/2017 10:51:52 01/14/2017 11:59:43 Normal 37938960 Z34.83 [id number] MD Garett Lenz ([place] [address]) [address] [place] [address] 02/04/2017 10:17:06 02/04/2017 13:26:48 Body mass index 30+ - obesity 286807238 Z68.34 Normal 7457935 2 Z34.83 [id number] MD Garett Lenz ([place] [address]) [address] [place] [address] 02/18/2017 11:20:53 02/25/2017 16:53:36 Normal 74946949 Z34.83 [id number] MD Garett Lenz ([place] [address]) [address] [place] [address] 03/04/2017 14:01:43 03/04/2017 16:04:14 Administration of diphtheria, pertussis, and tetanus vaccine 028758134 Z23 Body mass index 30+ - obesity 760402281 Z68.35 Normal 7368588 2 Z34.83 [id number] MD Garett Lenz ([place] [address]) [address] [place] [address] 03/11/2017 14:56:39 03/12/2017 14:15:27 Body mass index 30+ - obesity 984918758 Z68.35 Normal 2449779 2 Z34.83 [id number] MD Garett Lenz ([place] [address]) [address] [place] [address] 03/20/2017 14:41:42 03/21/2017 10:34:27 Body mass index 30+ - obesity 210243065 Z68.35 Normal 6416335 2 Z34.83 [id number] MD Garett Lenz ([place] [address]) [address] [place] [address] 03/27/2017 14:57:43 03/27/2017 16:36:04 Normal [id number] Z34.83 [id number] MD Garett Lenz ([place] [address]) [address] [place] [address] 04/17/2017 16:03:15 04/18/2017 15:10:11 Body mass index 30+ - obesity 634104928 Z68.33 depression 58 355463 O99.818 [id number] MD Garett Lenz ([place] [address]) [address] [place] [address] 05/15/2017 11:24:54 05/21/2017 11:02:34 Body mass index 30+ - obesity 596425785 Z68.33 care 79794641 8 Z39.0 [id number] MD Garett Edouard ([place] [address]) [address] [place] [address] 05/21/2017 14:31:08 05/22/2017 09:03:00 Anxiety 81272188 F41.9 Counseled on anxiety and medication . Encouraged to call for counseling , numbers given. Advised importance of stress reduction- walking, meditation , yoga. Encouraged to seek out help from loved ones and friends to help manage home life. [id number] MD Garett [place] [address]) [address] [place] [address] 06/09/2017 11:37:34 06/10/2017 11:58:37 Mass of back 775959907 R22.[address] and refer to general surgery for evaluation -OTC Ibuprofen/ Tylenol as needed for pain [id number] Jean-Paul Anderson MD Garett [facility] ([place] 205) [address] [place] [address] 06/19/2017 10:56:50 06/20/2017 12:24:37 Hypersomnia 51536605 G47.10 Counseled on hypersomni a and testing- Advised healthy diet and exercise-3 0 minutes every day. Good sleep hygiene discussed Anxiety 46400065 F41.9 Counseled on anxiety and medication -will continue Paxil at 10 mg daily. Encouraged to call for counseling , numbers given. Advised importance of stress reduction- walking, meditation , yoga. Encouraged to seek out help from loved ones and friends to help manage home life. [id number] MIKALA Che [address] [place] [address] 09/18/2017 11:25:35 09/19/2017 09:56:05 Anxiety 52168669 F41.9 Counseled on anxiety and medication -will increase Paxil to 20 mg daily. Encouraged to call for counseling , numbers given. Advised importance of stress reduction- walking, meditation , yoga. Encouraged to seek out help from loved ones and friends to help manage home life. [facility] [id number] R21 [id number] MIKALA Che 14 IM [address] [place] [address] 10/29/2017 11:40:16 10/29/2017 17:20:43 Anxiety 93434461 F41.9 Counseled on anxiety and medication - continue Paxil 20 mg daily. Encouraged to call for counseling , numbers given. Advised importance of stress reduction- walking, meditation , yoga. Encouraged to seek out help from loved ones and friends to help manage home life. f/u 3 months [id number] MD Garett Edouard [address] [place] [address] 12/20/2017 12:03:01 12/20/2017 12:26:00 Ganglion of wrist 924639976 M67.439 Referral to ortho-use OTC Aleve/Tyle nol as needed for pain [id number] MD Garett Edouard [address] [place] [address] 02/05/2018 14:42:16 02/06/2018 12:46:04 Anxiety 78515641 F41.9 Counseled on anxiety and medication - increase Paxil to 30 mg daily. Encouraged to call for counseling , numbers given. Advised importance of stress reduction- walking, meditation , yoga. Encouraged to seek out help from loved ones and friends to help manage home life. f/u 1 month Allergic rhinitis 702791 04 J30.1 Counseled on allergies- Claritin and Flonase daily. Decongesta nt as needed. Stay away from triggers. Shower after being outside. Saline nasal wash as needed. f/u as needed [id number] MD Garett Edouard [address] [place] [address] 03/16/2018 15:06:36 03/17/2018 10:30:09 Anxiety 50392538 F41.9 Counseled on anxiety and medication - will continue Paxil at 30 mg daily. Encouraged to call for counseling , numbers given. Advised importance of stress reduction- walking, meditation , yoga. Encouraged to seek out help from loved ones and friends to help manage home life. f/u 3 months Administra tion of influenza vaccine 22221897 Z23 [id number] MD Garett Edouard [address] [place] [address] 08/15/2018 12:01:17 08/17/2018 09:29:17 Mass of skin of back 9958355186 82651 R22.2 Will refer back to general surgeon for evaluation -OTC Ibuprofen/ Tylenol as needed Body mass index 30+ - obesity 119504757 Z68.37 Tobacco de pendence syndrome 89660248 F17.871 [id number] MD Garett Edouard 14 IM [address] [place] [address] 10/07/2018 15:32:27 10/08/2018 09:25:37 Anxiety 30508669 F41.9 Counseled on anxiety and medication - will stop Paxil and start Effexor. Encouraged to call for counseling , numbers given. Advised importance of stress reduction- walking, meditation , yoga. Encouraged to seek out help from loved ones and friends to help manage home life. f/u 1 month Eruption 128615713 R21 [id number] MD Garett Edouard 14 IM [address] [place] [address] 11/17/2018 11:23:06 11/18/2018 09:17:02 Gastroesophageal reflux disease without esophagitis 184773153 K21.9 Counseled on GERD and medication . Encouraged low fat diet, alcohol, spicy greasy foods and caffeinate d beverages. Keep head of bed elevated at night. Do not eat 2-3 hours prior to bedtime.f/ u 6 months Anxiety 31195069 F41.9 Counseled on anxiety and medication - will stop Paxil and start Effexor. Encouraged to call for counseling , numbers given. Advised importance of stress reduction- walking, meditation , yoga. Encouraged to seek out help from loved ones and friends to help manage home life. f/u 1 month [id number] MD Garett Edouard [address] [place] [address] 12/08/2018 11:12:28 2018 10:39:33 Spasmodic torticollis 96056366 G24.3 Counseled on wry neck, medication s as directed- encourage stress management , have massage and do ROM stretching to area. If no improvemen t in 2 weeks f/u for PT [id number] MD Garett ALLEN 14 IM [address] [place] [address] 02/09/2019 14:45:59 02/10/2019 11:08:22 Administration of influenza vaccine 09153121 Z23 Mixed anxi ety and depressive disorder 727094835 F41.8 Counseled on anxiety/de pression and medication . Advised importance of stress reduction- walking, meditation , yoga. Encouraged to seek out help from loved ones and friends to help manage home life. Counseled on seeking help from 911 or go to ER for suicidal or homicidal thoughts. f/u 3 months Heartburn 84570433 R12 Change to pepcid due to recall of ranitidine -if worsening or new issues f/u sooner than 3 months [id number] MD Garett ALLEN 14 IM [address] [place] [address] 05/11/2019 11:40:33 05/12/2019 12:23:28 Mixed anxiety and depressive disorder 038809396 F41.8 Counseled on anxiety/de pression and medication . Advised importance of stress reduction- walking, meditation , yoga. Encouraged to seek out help from loved ones and friends to help manage home life. Counseled on seeking help from 911 or go to ER for suicidal or homicidal thoughts. f/u 6 months Heartburn 25579840 R12 Counseled on heartburn and medication -if worsening or new issues f/u sooner than 6 months Renewal of prescription 285161635 Z76.0 [id number] [facility] Garett [facility] IM [address] [place] [address] 08/23/2019 09:41:13 08/24/2019 09:32:19 Low back pain 239967394 M54.5 Uses ibuprofen PRN Gastroesop hageal reflux disease without esophagitis 522641219 K21.9 Mixed anxi ety and depressive disorder 847524037 F41.8 [id number] [facility] Garett 14 IM [address] [place] [address] 11/22/2019 09:04:17 11/23/2019 11:19:58 Mixed anxiety and depressive disorder 456438623 F41.8 Gastroesop hageal reflux disease without esophagitis 569259585 K21.9 Adult heal th examination 362469389 Z00.00 Seasonal allergy 2357495 04 J30.2 [id number] MD Garett Lenz 14 OB [address] [place] [address] 07/11/2021 10:52:59 07/12/2021 09:25:29 Normal 34468349 Z34.83 Hyperemesi s gravidarum 93367300 O21.0 [id number] MD Garett Lenz 14 OB [address] [place] [address] 07/26/2021 11:27:48 07/27/2021 06:29:39 Normal 75556447 Z34.83 [id number] MD Garett Lenz 14 OB [address] [place] [address] 08/09/2021 14:03:57 08/10/2021 09:36:03 Normal 29681974 Z34.83 [id number] MD Garett Lenz [address] [place] [address] 08/30/2021 11:29:05 08/31/2021 11:29:27 Normal 13002180 Z34.83 [id number] MD Garett Lenz [address] [place] [address] 09/27/2021 13:58:05 09/28/2021 08:31:57 Normal 44455281 Z34.83 [id number] MD Garett Lnez [address] [place] [address] 10/25/2021 09:48:26 10/26/2021 09:13:18 Normal 18806855 Z34.83 [id number] MD Garett Lenz [address] [place] [address] 11/20/2021 14:47:31 11/21/2021 09:38:58 Normal 45645446 Z34.83 Gestationa l diabetes mellitus complicating 5943952926 9106 O24.278 [id number] MD Garett Lenz [address] [place] [address] 12/04/2021 10:47:28 12/05/2021 09:15:15 Normal 49577244 Z34.83 Gestationa l diabetes mellitus 26998244 O24.470 [id number] MD Garett Lenz [address] [place] [address] 12/18/2021 11:32:45 12/20/2021 11:21:50 Normal 00155412 Z34.83 Administra tion of diphtheria, pertussis, and tetanus vaccine 154748595 Z23 Gestationa l diabetes mellitus 08042417 O24.800 [id number] MD Garett Lenz [address] [place] [address] 01/01/2022 14:51:23 01/04/2022 06:46:26 Normal 84827743 Z34.83 Gestationa l diabetes mellitus 42975372 O24.088 [id number] MD Garett Lenz [address] [place] [address] 01/10/2022 10:52:02 01/11/2022 07:27:06 Normal 47086639 Z34.83 Gestationa l diabetes mellitus 79638835 O24.765 [id number] MD Garett Lenz [address] [place] [address] 02/12/2022 15:40:21 02/18/2022 09:55:21 care 014679689 Z39.2 depression 58 455046 O99.345 Contracept ion care management 685374435 Z30.9 [id number] MD Garett Lenz [address] [place] [address] 03/05/2022 13:46:02 03/06/2022 17:02:32 care 084316390 Z39.2 [id number] MD Garett Lenz [address] [place] [address] 03/21/2023 10:04:33 03/26/2023 16:00:37 Contraception care management 400262303 Z30.9 Smoker 75307246 F17.200 Gynecologi c examination 93322187 Z01.508 [id number] Corrine Dempsey MD [facility] [address] [place] [address] 03/23/2024 10:33:13 03/29/2024 13:19:06 Positive screening for depression on PHQ-9 (Patient Health Questionnaire 9) 9874184547 27122 Z13.31 Smoker 36811718 F17.200 Obesity 419652959 E66.9 Gynecologi c examination 69783552 Z01.419 Contracept ion care management 502173112 Z30.9 Health Concerns Section Related Observation LastModified by Organization Detai ls LastModified Time None Recorded Concern Status LastModified by Organization Details LastModified Time None Recorded Advance Directives Directive None Recorded Payers Insurance Date Sequence Insurance Name Policy Number Policy Hancock Covered Member ID Hancock Member ID Guarantor Name 06/04/2021 SLIDING FEE SCHEDULE - DISCOUNT Esther Day 08/15/2018 1 *SELF PAY* As samuel Day 09/07/2024 2 [place] [facility] Esther Ayerser [id number] Esther Day 09/07/2024 1 [facility] PRIOR TO 10/12/2020 (MEDICAID REPLACEMENT - HMO) Esther Day [id number] Esther Day 09/09/2024 1 [facility] ON OR AFTER 10/12/20 (MEDICAID REPLACEMENT - HMO) Esther Day [id number] Esther Day 09/07/2024 1 [facility] PRIOR TO 10/12/2020 (MEDICAID REPLACEMENT - HMO) Esther Godinez [id number] Esther Dya 09/07/2024 1 [place] [facility] Esther Day [id number] Esther Day 09/07/2024 1 [facility] PRIOR TO 10/12/2020 (MEDICAID REPLACEMENT - HMO) Esther aDy [id number] Esther Day 09/07/2024 1 [facility] PRIOR TO 10/12/2020 (MEDICAID REPLACEMENT - HMO) Esther Ayerser [id number] Esther Day 09/07/2024 2 [facility] PRIOR TO 10/12/2020 (MEDICAID REPLACEMENT - HMO) Esther Day [id number] Esther Day 09/07/2024 2 [facility] PRIOR TO 10/12/2020 (MEDICAID REPLACEMENT - HMO) Esther Day [id number] Esther Day 09/07/2024 2 [facility] PRIOR TO 10/12/2020 (MEDICAID REPLACEMENT - HMO) Esther Day [id number] Esther Day Notes Date Note Type Note Provider Name and Address Organization Details Recorded Time 2 text/html VisitReported by Patient Corrine Dempsey MD Attn: Accounting,[address] [facility], [place], [address], [facility] 02/12/2022 16:22:43 2 text/html VisitReported by Patient Corrine Dempsey MD Attn: Accounting,[address] [facility], [place], [address], [facility] 03/05/2022 14:30:36 3 text/html Annual GYNReported by PatientGenitourinary symptomsFor menstrual cycle, patient reportsnormal menses. For urinary symptoms, patient reportsno hematuriaandno incontinence. For vulva, patient reportsno genital lesion. For vagina, patient reportsnormal vaginal discharge.Breast symptomsFor breast, patient reportsno breast pain,no breast lump, andno nipple discharge.ContraceptionFo r current contraception, patient reportstransdermal patch.Endocrine symptomsFor sexual complaints, patient reportsno sexual complaints,no pain during intercourse, andnormal libido. For menopausal symptoms, patient reportsno menopausal symptomsandnormal vaginal lubrication.Psychological symptomsFor psychological symptoms, patient reportsno depression,no anxiety, andno pmdd.ROS as noted in the HPI Corrine Dempsey MD Attn: Accounting,[address] [facility], [place], [address], [facility] 03/21/2023 10:46:25 4 text/html Annual GYNReported by PatientGenitourinary symptomsFor menstrual cycle, patient reportsnormal menses. For urinary symptoms, patient reportsno hematuriaandno incontinence. For vulva, patient reportsno genital lesion. For vagina, patient reportsnormal vaginal discharge.Breast symptomsFor breast, patient reportsno breast pain,no breast lump, andno nipple discharge.ContraceptionFo r current contraception, patient reportstransdermal patch.Endocrine symptomsFor sexual complaints, patient reportsno sexual complaints,no pain during intercourse, andnormal libido. For menopausal symptoms, patient reportsno menopausal symptomsandnormal vaginal lubrication.Psychological symptomsFor psychological symptoms, patient reportsno depression,no anxiety, andno pmdd.ROS as noted in the HPI Girls are 10,7, and 1 essentially a non smoker now. ( 1 pack per YEAR - only when really stressed discussed patches vs pills Corrine Dempsey MD Attn: Accounting,[address], [place], [address], [place] 03/23/2024 11:01:57 OBGyn Episode Ob Episode Information Episode Created Date Number of Fetuses Patient Bloodtype Patient rh Status Prepregnancy Weight lbs Domestic Partner Domestic Partner Phone Father Name Administration Dean Status 07/12/19 22 1 B Positive CLOSED Fetus Data First Name Last Name Admitted to NICU Weight (g) Sex Living Outcome Pediatric Complications Fetus ID Race Codes Race Delivery Type Khalida Ayers er false 2919.99 85 F true Full Term 11455 2106-3 White Vaginal Zan Calculation Initial Zan [...] in lbs Pre/Post Dialysis Refused With clothes 217.952737671119 BP Diastolic BP Location Tested BP Systolic [...] Weight in lbs Pre/Post Dialysis Refused Stated 212.790495250252 BP Diastolic BP Location Tested BP Systolic [...] in lbs Pre/Post Dialysis Refused With clothes 215.856101957385 BP Diastolic BP Location Tested BP Systolic BP Type 76 124 sitting Fetus Heart Rate Present A 147 Present Fetus Movement Comments doing well, much batter jose n last time.no new issuesUS in 2 weeks Flowsheet Date 08/30/2021 Walker Score Blood Edema Fundus Height Fundus Units Glucose Ketones Leukocytes Nitrite Labor Signs Protein Cervic Dilation Cervic Effacement Cervic Station trace 19 wks none neg Type Weight in lbs Pre/Post Dialysis Refused With clothes 210.225735887521 BP Diastolic BP Location Tested BP Systolic BP Type 80 126 sitting Fetus Heart Rate Present A 152 Present Fetus Movement Comments doing wellgirl #3 on US : M argoEDC confirmed Flowsheet Date 09/27/2021 Walker Score Blood Edema Fundus Height Fundus Units Glucose Ketones Leukocytes Nitrite Labor Signs Protein Cervic Dilation Cervic Effacement Cervic Station none 22 wks none trace Type Weight in lbs Pre/Post Dialysis Refused With clothes 210.762611519291 BP Diastolic BP Location Tested BP Systolic [...] in lbs Pre/Post Dialysis Refused With clothes 213.252327561546 BP Diastolic BP Location Tested BP Systolic [...] in lbs Pre/Post Dialysis Refused With clothes 213.205986990159 BP Diastolic BP Location Tested BP Systolic [...] in lbs Pre/Post Dialysis Refused With clothes 212.458461151348 BP Diastolic BP Location Tested BP Systolic [...] in lbs Pre/Post Dialysis Refused With clothes 213.971601136957 BP Diastolic BP Location Tested BP Systolic [...] Weight in lbs Pre/Post Dialysis Refused Weight 216.636655254203 BP Diastolic BP Location Tested BP Systolic [...] in lbs Pre/Post Dialysis Refused With clothes 219.928728658667 BP Diastolic BP Location Tested BP Systolic [...] in lbs Pre/Post Dialysis Refused With clothes 201.673846710125 BP Diastolic BP Location Tested BP Systolic [...] Estim ated Date of Delivery false Thalassemia (Djiboutian, Kiswahili, Mediterranean, Or Background): MCV < 80 false Neural Tube Defect (Meningomyelocele, Spina Bifi da, Or Anencephaly) false Congenital Heart Defect false Down Syndrome false Jose F-Sachs (eg, Islam, Cajun, Qatari-Baraboo) f alse Raúl Disease false Sickle Cell [...] Induce d Regional-Ep idural 39.6 false Corrine Dempsey MD false 01/24/2022 Discharge Information Feeding Method Contraceptive Method Maternal HG B and HCT Levels Combination Ob Episode Information Episode Created Date Number of Fetuses Patient Bloodtype Patient rh Status Prepregnancy Weight lbs Domestic Partner Domestic Partner Phone Father Name Administration Dean Status 09/19/19 17 1 CLOSED Fetus Data First Name Last Name Admitted to NICU Weight (g) Sex Living Outcome Pediatric Complications Fetus ID Race Codes Race Delivery Type 3033.16 9704 F Full Term 26866 Vaginal Zan Calculation Initial Zan Date Initial [...] Domestic Partner Domestic Partner Phone Father Name Administration Dean Status 09/19/19 17 1 B Positive Del. @ [facility] CLOS ED Fetus Data First Name Last Name Admitted to NICU Weight (g) Sex Living Outcome Pediatric Complications Fetus ID Race Codes Race Delivery Type Danni Spenc er false 3288.54 2 F true Full Term 59703 2106-3 White Vaginal Zan Calculation Initial Zan [...] Date Ultra Sound Latest Days Gestation 0 [email or web address] 04/17/2017 017 0 Pre-socorro Flowsheet Flowsheet Date 09/18/2016 Walker Score Blood Edema Fundus Height Fundus Units Glucose Ketones Leukocytes Nitrite Labor Signs Protein Cervic Dilation Cervic Effacement Cervic Station 0cm 0% -4 Type Weight in lbs Pre/Post Dialysis Refused 193.29447534370 BP Diastolic BP Location Tested BP Systolic [...] Type Weight in lbs Pre/Post Dialysis Refused 196.093253566619 BP Diastolic BP Location Tested BP Systolic [...] Type Weight in lbs Pre/Post Dialysis Refused 199.745536710337 BP Diastolic BP Location Tested BP Systolic BP Type 76 106 sitting Fetus Heart Rate Present A 145 Present Fetus Movement Comments Girl #2 on US, Danni.no n ew issues Flowsheet Date 12/23/2016 Walker Score Blood Edema Fundus Height Fundus Units Glucose Ketones Leukocytes Nitrite Labor Signs Protein Cervic Dilation Cervic Effacement Cervic Station none 24 cm none neg Type Weight in lbs Pre/Post Dialysis Refused 201.408145270508 BP Diastolic BP Location Tested BP Systolic [...] Type Weight in lbs Pre/Post Dialysis Refused 198.572788175669 BP Diastolic BP Location Tested BP Systolic [...] Type Weight in lbs Pre/Post Dialysis Refused 199.920757649222 BP Diastolic BP Location Tested BP Systolic [...] Type Weight in lbs Pre/Post Dialysis Refused 204.439103783183 BP Diastolic BP Location Tested BP Systolic [...] Type Weight in lbs Pre/Post Dialysis Refused 207.760200690701 BP Diastolic BP Location Tested BP Systolic [...] Type Weight in lbs Pre/Post Dialysis Refused 206.668955777528 BP Diastolic BP Location Tested BP Systolic [...] Type Weight in lbs Pre/Post Dialysis Refused 204.80426980304 BP Diastolic BP Location Tested BP Systolic [...] Type Weight in lbs Pre/Post Dialysis Refused 202.869190178562 BP Diastolic BP Location Tested BP Systolic BP Type 78 122 sitting Fetus Heart Rate Present A 154 Present Fetus Movement A Yes Comments Plan induction Friday at [facility] 06/26/16 Flowsheet Date 04/17/2017 Walker Score Blood Edema Fundus Height Fundus Units Glucose Ketones Leukocytes Nitrite Labor Signs Protein Cervic Dilation Cervic Effacement Cervic Station Type Weight in lbs Pre/Post Dialysis Refused 192.657295872366 BP Diastolic BP Location Tested BP Systolic BP Type 78 118 sitting Fetus Heart Rate Present Fetus Movement Comments Menstrual History Last Menstrual Date Menses Monthly On Bcp Conception Prior Menses Frequency Hcg Plus Date Menarche Onset Age 0306/26/2016 Genetic Screening And Infection History Question Response Note Patient's Age Will Be 35 Yea rs Or Older At Estimated Date of Delivery false Thalassemia (Djiboutian, Kiswahili, Mediterranean, Or Background): MCV < 80 false Neural Tube Defect (Meningom yelocele, Spina Bifida, Or Anencephaly) false Congenital Heart Defect false Down Syndrome false Jose F-Sachs (eg, Islam, Cajun , Qatari-Baraboo) false Raúl Disease false Sickle Cell Disease Or Trait () false Hemophilia Or Other Blood Disorders false Muscular Dystrophy false Cystic Fibrosis false negative CF howell ier screen 09-30-12 Yaz's Chorea false Mental Retardation/Autism false If [...]
--- OUTSIDE RECORDS SUMMARY | 2025-02-27 10:30 | XMS_ITS | Encounter Summary ---
Author Organization [facility] Address [address] [place] [address] Phone Care Team Providers Care Process Engineering Technician Name Role Phone Kj Merlos MD Primary Care Provider [phone] Tatiana Logan APRN, TRAUMA REGISTRAR Unavailable Karen Andino APRN, TRAUMA REGISTRAR Unavailable Reason for Visit * Reason Comments Medication Refill Encounter Details Date Type Department Care Team (Late st Contact Info) Description 08/08/2024 [facility]ill [facility] - [facility] [address] [place] [address] Tatiana Logan APRN, TRAUMA REGISTRAR [address] [place] [address] Medication Refill Social History Tobacco Use Types Packs/Day Years Used Date Smoking Tobacco: Light Smoker Cigarettes Smokeless Tobacco: Never Comments:1-2 cigarettes a da y Alcohol Use Standard Drinks/Week Comments Yes 0 (1 standard drink = 0.6 oz pur e alcohol) Rare [facility] Utilities Answer Date Recorded In the past [...] How often do you attend chur or sikh services? Patient declined 01/15/2024 Do you belong to any clubs o r organizations such as jew groups, unions, fraternal or athletic groups, or [...] Total Score - Questions 1-9 0 05/15 [facility] Occupat ional Health [...] place to sleep or slept in a retirement (including now)? 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 documented in this encounter Plan of Treatment Upcoming Encounters Date Type Department Care Team (Late st Contact Info) Description 05/19/2025 10:30 AM SPEECH PATHOLOGY TEACHER Office Visit [facility] - Family Medicine [facility] [address] [place] [address] Ligia Choi APRN, TRAUMA REGISTRAR [address] [address] documented as of this encounter Visit Diagnoses Diagnosis Diarrhea, unspecified type Abdominal cramping Abdominal pain, unspecified site documented in this encounter Additional Health Concerns Assessment Noted Time PHQ-9 Depression Total Score: 0 06/02/19 25 10:06 AM SPEECH PATHOLOGY TEACHER documented as of this encounter Care Teams Process Engineering Technician Relationship Specialty Start Date End Date Kj Merlos MD [address] [address] PCP - General Family Medicine 04/09/21 Tatiana Logan APRN, TRAUMA REGISTRAR [address] [place] [address] Nurse Practitioner Advanced Practice Nurse 01/29/24 Karen nAdino APRN, TRAUMA REGISTRAR [address] [place] [address] Nurse Practitioner Cardiology 03/29/24 documented as of this encounter
--- OUTSIDE RECORDS SUMMARY | 2025-02-27 10:30 | XMS_ITS | Encounter Summary ---
Author Organization [facility] Address [address] [place] [address] Phone Care Team Providers Care Air Twist Operator Name Role Phone Kj Merlos MD Primary Care Provider [phone] Tatiana Logan APRN, GASOLINE PLANT OPERATOR Unavailable Karen Andino APRN, GASOLINE PLANT OPERATOR Unavailable Reason for Visit * Reason Comments Medication Refill Encounter Details Date Type Department Care Team (Late st Contact Info) Description 03/13/2024 Refill [facility] - [facility]astroenterology [facility] [address] [place] [address] Tatiana Logan APRN, GASOLINE PLANT OPERATOR [address] [place] [address] Medication Refill Social History Tobacco Use Types Packs/Day Years Used Date Smoking Tobacco: Light Smoker Cigarettes Smokeless Tobacco: Never Comments:1-2 cigarettes a da y Alcohol Use Standard Drinks/Week Comments Yes 0 (1 standard drink = 0.6 oz pur e alcohol) Rare [facility] Utilities Answer Date Recorded In the [...] How often do you attend chur or yazdanism services? 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 DENTIAL ADVISOR documented in this encounter Plan of Treatment Upcoming Encounters Date Type Department Care Team (Late st Contact Info) Description 05/19/2025 10:30 AM RESIDENTIAL ADVISOR Office Visit [facility] - Family Medicine [facility] [address] [place] [address] Ligia Choi APRN, GASOLINE PLANT OPERATOR [address] [address] documented as of this encounter Visit Diagnoses Diagnosis Diarrhea, unspecified type Abdominal cramping Abdominal pain, unspecified site documented in this encounter Additional Health Concerns Assessment Noted Time PHQ-9 Depression Total Score: 8 01/15/20 24 4:34 PM CDT documented as of this encounter Care Teams Air Twist Operator Relationship Specialty Start Date End Date Kj Merlos MD [address] [address] PCP - General Family Medicine 04/09/21 Tatiana Logan APRN, GASOLINE PLANT OPERATOR [address] [place] [address] Nurse Practitioner Advanced Practice Nurse 01/29/24 Karen Andino APRN, GASOLINE PLANT OPERATOR [address] [place] [address] Nurse Practitioner Cardiology 03/29/24 documented as of this encounter
--- OUTSIDE RECORDS SUMMARY | 2025-02-27 10:30 | XMS_ITS | Encounter Summary ---
Author Organization [facility] Address [address] [place] [address] Phone Care Team Providers Care Senior Business Manager Name Role Phone Kj Merlos MD Primary Care Provider [phone] Tatiana Logan APRN, HUMAN INSIGHTS LEAD ADS MARKETING Unavailable Karen Andino APRN, HUMAN INSIGHTS LEAD ADS MARKETING Unavailable Reason for Visit * Reason Comments Medication Refill Encounter Details Date Type Department Care Team (Late st Contact Info) Description 06/28/2024 Refill [facility] - Gastroenterology [facility] [address] [place] [address] Tatiana Logan APRN, HUMAN INSIGHTS LEAD ADS MARKETING [address] [place] [address] Medication Refill Social History Tobacco Use Types Packs/Day Years Used Date Smoking Tobacco: Light Smoker Cigarettes Smokeless Tobacco: Never Comments:1-2 cigarettes a da y Alcohol Use Standard Drinks/Week Comments Yes 0 (1 standard drink = 0.6 oz pur e alcohol) Rare [facility] Utilities Answer Date Recorded In [...] How often do you attend chur or bahai services? Patient declined 01/15/2024 Do you belong [...] Total Score - Questions 1-9 0 05/15 [facility] Occupat ional Health - [...] place to sleep or slept in a long-term (including now)? No 09/15/2023 Housing Stability Vital [...] PM CDT Legal Sex Female 2:47 AM SR. MERCHANDISE PLANNER Gender Identity Female 11/25/2022 4:06 PM [...] st Contact Info) Description 05/19/2025 10:30 AM SR. MERCHANDISE PLANNER Office Visit [facility] - Family Medicine [facility] [address] [place] [address] Ligia Choi APRN, HUMAN INSIGHTS LEAD ADS MARKETING [address] [address] documented as of this encounter Visit Diagnoses Diagnosis Diarrhea, unspecified type Abdominal cramping Abdominal pain, unspecified site documented in this encounter Additional Health Concerns Assessment Noted Time PHQ-9 Depression Total Score: 0 06/02/19 25 10:06 AM SR. MERCHANDISE PLANNER documented as of this encounter Care Teams Senior Business Manager Relationship Specialty Start Date End Date Kj Merlos MD #[address] [address] PCP - General Family Medicine 04/09/21 Tatiana Logan APRN, HUMAN INSIGHTS LEAD ADS MARKETING [address] [place] [address] Nurse Practitioner Advanced Practice Nurse 01/29/24 Karen Andino APRN, HUMAN INSIGHTS LEAD ADS MARKETING [address] [place] [address] Nurse Practitioner Cardiology 03/29/24 documented as of this encounter
--- OUTSIDE RECORDS SUMMARY | 2025-02-27 10:30 | XMS_ITS | Encounter Summary ---
Author Organization [facility] Address [address] [place] [address] Phone Care Team Providers Care Car Inspector Name Role Phone Kj Merlos MD Primary Care Provider Tatiana Logan APRN, OCCUPATIONAL HEALTH NURSE Unavailable Karen Andino APRN, OCCUPATIONAL HEALTH NURSE Unavailable Reason for Visit * Reason Comments Medication Refill Encounter Details Date Type Department Care Team (Late st Contact Info) Description 04/23/2024 Refill [facility] - Gastroenterology [facility] [address] [place] [address] Tatiana Logan APRN, OCCUPATIONAL HEALTH NURSE [address] [place] [address] Medication Refill Social History Tobacco Use Types Packs/Day Years Used Date Smoking Tobacco: Light Smoker Cigarettes Smokeless Tobacco: Never Comments:1-2 cigarettes a da y Alcohol Use Standard Drinks/Week Comments Yes 0 (1 standard drink = 0.6 oz pur e alcohol) Rare [facility] Utilities Answer Date Recorded In [...] How often do you attend chur or pentecostal services? Patient declined 01/15/2024 Do you belong to any clubs o r organizations such as episcopal groups, unions, fraternal or athletic groups, or [...] Total Score - Questions 1-9 8 06/2023 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 ET COVERER documented in this encounter Plan of Treatment Upcoming Encounters Date Type Department Care Team (Late st Contact Info) Description 05/19/2025 10:30 AM HELMET COVERER Office Visit [facility] - Family Medicine [facility] [address] [place] [address] Ligia Choi APRN, OCCUPATIONAL HEALTH NURSE [address] [address] documented as of this encounter Visit Diagnoses Diagnosis Diarrhea, unspecified type Abdominal cramping Abdominal pain, unspecified site documented in this encounter Additional Health Concerns Assessment Noted Time PHQ-9 Depression Total Score: 8 01/15/20 24 4:34 PM CDT documented as of this encounter Care Teams Car Inspector Relationship Specialty Start Date End Date Kj Merlos MD [address] [address] PCP - General Family Medicine 04/09/21 Tatiana Logan APRN, OCCUPATIONAL HEALTH NURSE [address] [place] [address] Nurse Practitioner Advanced Practice Nurse 01/29/24 Karen Andino APRN, OCCUPATIONAL HEALTH NURSE [address] [place] [address] Nurse Practitioner Cardiology 03/29/24 documented as of this encounter
--- OUTSIDE RECORDS SUMMARY | 2025-02-27 10:31 | XMS_ITS | Clinical Summary ---
Author Organization [facility] Address [address] [place] [address] Phone Care Team Providers Care Manager Call Center Name Role Phone Kj Merlos MD Primary Care Provider [phone] Tatiana Logan LOAD CHECKER, MOBILE QA TESTER Unavailable Karen Andino LOAD CHECKER, MOBILE QA TESTER Unavailable Allergies Active Allergy Reactions Criticality Noted Date Comments Amoxicillin-Pot Clavulanate Rash,Itching High 2015 Cefaclor Hives,Rash High 03/11/2016 Codeine Hives,Itching High 12/25/2018 Medications Zafemy 150-35 MCG/24HR PATCH WEEKLY APPLY 1 TOPICALLY ONCE A WEEK FOR 21 DAYS Active triamcinolone (KENALOG) 0.1 % CreamIndicatio ns:Heat rash APPLY CREAM EXTERNALLY TWICE DAILY TO RASH 80 g 024 Active fluticasone (FLONASE) 50 MCG/ACT Suspension 2 Sprays by Nasal route daily. Use in each nostril as directed. 18.2 mL 024 Active rosuvastatin (CRESTOR) 10 MG Tablet Take 1 Tablet by mouth daily. 90 Tablet 3 025 Active methocarbamol (ROBAXIN) 750 MG Tablet Take 1 Tablet by mouth 4 times daily as needed (back pain). 30 Tablet 025 Active venlafaxine (EFFEXOR-XR) 150 MG CAPSULE SR 24 HRIndications: Anxiety Take 1 capsule by mouth once daily 90 Capsule 1 025 Active omeprazole (PriLOSEC) 40 MG CAPSULE DELAYED RELEASEIndicat ions:Gastroeso phageal reflux disease, unspecified whether esophagitis present Take 1 Capsule by mouth daily. 90 Capsule 3 025 Active busPIRone (BUSPAR) 5 MG TabletIndicati ons:Anxiety TAKE 1 TABLET BY MOUTH NIGHTLY NEEDED FOR ANXIETY 90 Tablet 025 Active dicyclomine (BENTYL) 20 MG TabletIndicati ons:Diarrhea, unspecified type,Abdominal cramping TAKE 1 TABLET BY MOUTH EVERY 6 HOURS NEEDED FOR ABDOMINAL CRAMPING/DIARRHE A 90 Tablet 025 Active SYRINGE-NEEDLE , DISP, 3 ML (B-D 3CC LUER-MONY SYR 25GX1) 25G X 1 3 ML MiscIndication s:Low serum vitamin B12 TO BE USED FOR INJECTION OF B 12 4 Each Active cyanocobalamin (VITAMIN B-12) 1000 MCG/ML SolutionIndica tions:Low serum vitamin B12 1 mL by Intramuscular route once a week. 4 mL 025 Active dicyclomine (BENTYL) 20 MG TabletIndicati ons:Diarrhea, unspecified type,Abdominal cramping TAKE 1 TABLET BY MOUTH EVERY 6 HOURS NEEDED FOR ABDOMINAL CRAMPING/DIARRHE A 90 Tablet 025 2024 Discontinued SYRINGE-NEEDLE , DISP, 3 ML (BD Eclipse Syringe) 25G X 1 3 ML MiscIndication s:Low serum vitamin B12 To be used for injection of B12 4 Each 025 2024 Discontinued cyanocobalamin (VITAMIN B-12) 1000 MCG/ML SolutionIndica tions:Low serum vitamin B12 1 mL by Intramuscular route once a week for 4 doses. 4 mL 025 2024 Discontinued(R deena) Active Problems Problem Noted Date Diagnosed Date [...] Encounters Date Type Department Care Team Description 02/09[facility] [place] [address] Ligia Choi APRN, MOBILE QA TESTER Medication Refill [facility] [phone] Tatiana Logan APRN, MOBILE QA TESTER Medication Refill 01/14/2025 Results Follow-Up [facility] [facility] [place] [phone] Ligia Chio APRN, MOBILE QA TESTER CMP (COMPREHENSIVE METABOLIC PANEL), THYROID STIMULATING HORMONE (TSH), LIPID PANEL, Additional followed-up results: 4 01/13/2025 Travel [facility] [phone] Tatiana Logan APRN, MOBILE QA TESTER Medication Refill 12/27/2024 [facility] [place] [phone] Kj Merlos MD Medication Refill 12/18/2024 [facility] [phone] Tatiana Logan, LOAD CHECKER, MOBILE QA TESTER Medication Refill from Last 3 Months Immunizations Immunization Administration [...] Known Problems Maternal Grandfather Cancer Maternal Grandmother Julieta healyy Liver Cancer Maternal Grandmother Julietajoey wang Skin Cancer Maternal Grandmother Julietajoey wang Seizures Maternal Uncle 1 Rohith wang Epilepsy Seizures Maternal Uncle 2 Saurav wang Epilepsy Anxiety disorder Mother Relation Name Status Comments Daughter 1 Alive Daughter 2 Alive Maternal Grandfather Alive Maternal Grandmother Julieta healyy Maternal Uncle 1 Rohith wang Alive Maternal Uncle 2 Saurav wang Alive Mother Alive Social History Tobacco Use Types Packs/Day Years Used Date Smoking Tobacco: Former Cigarettes Smokeless Tobacco: Never Tobacco Cessation:Counseling Given: No Comments:Last smoked 2 months ago Alcohol Use Standard Drinks/Week Comments Yes 0 (1 standard drink = 0.6 oz pur e alcohol) Rare [facility] Utilities Answer Date Recorded In the past 12 months has th e [employer], gas, oil, or water [employer] threatened to shut off services in your [...] How often do you attend chur or orthodoxy services? Patient declined 01/15/2024 Do you belong to any clubs o r organizations such as judaism groups, unions, fraternal or athletic groups, or [...] Score - Questions 1-9 9 10/13 [facility] - Occupational Stress [...] to sleep or slept in a senior care (including now)? 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 file Not on file Last Filed Vital Signs Vital Sign Reading Time Taken Comments Blood Pressure 124/72 11/01/2024 4:02 PM CDT Pulse 86 11/01/2024 4:02 PM CDT Temperature 36.4 C (97.5 F) 11/01/2024 4:02 PM CDT Respiratory Rate 16 11/01/2024 4:02 PM CDT Oxygen Saturation 98% 11/01/2024 4:02 PM CDT Inhaled Oxygen Concentration - - Weight 98 kg (216 lb) 11/01/2024 4:02 PM CDT Height 152.4 cm (5') 11/01/2024 4:02 PM CDT Body Mass Index 42.18 11/01/2024 4:02 PM CDT Plan of Treatment Upcoming Encounters Date Type Department Care Team (Late st Contact Info) Description 05/19/2025 10:30 AM GREENS KEEPER Office Visit [facility] [address] [place] [phone] Ligia Choi, LOAD CHECKER, MOBILE QA TESTER [address] [address] Health Maintenance Due Date Last Done Comments Hepatitis C Virus (HCV) Screening 1988 Hepatitis B Immunization (1 of 3 - 19+ 3-dose series) 12/11/2007 Human Papillomavirus (HPV) Immunization (1 - 3-dose SCDM series) 12/11/2015 HPV/Cotest 2018 Influenza Immunization (#1) 2024 10/0 06/2023, 01/24/2022, 12/29/2020, Additional history exists Cervical Cancer Screening (CCS) 05/03/2026 Pap Smear 05/03/2026 05/03/2023 DTaP/Tdap/Td Immunization (9 - Td or Tdap) 12/19/2031 12/18/2021, 04/02/2017, 03/04/2017, Additional history exists Respiratory Syncytial Virus (RSV) Immunization (Adult) (1 - 1-dose 75+ series) 12/11/2063 Pneumococcal Immunization Combined Aged Out 12/29/2020 No longer eligible based on patient's age to complete this topic Meningococcal Immunization (ACWY) Aged Out No longer eligible based on patient's age to complete this topic Rotavirus Immunization Aged Out No lo nger eligible based on patient's age to complete this topic SARS-COV-2 Immunization Discontinued Procedures Procedure Name Priority Date/Time Associated Diagnosis Comments CBC WITH AUTO DIFFERENTIAL Routine 01/13/2025 9:09 AM CDT Depressive disorder Fatigue, unspecified type VITAMIN D, 25 HYDROXY TOTAL Routine 01/13/2025 9:09 AM CDT Gastroesophageal reflux disease, unspecified whether esophagitis present Fatigue, unspecified type VITAMIN B12 Routine 01/13/2025 9:09 AM CDT Gastroesophageal reflux disease, unspecified whether esophagitis present Fatigue, unspecified type IRON,TRANSFERN,CALC. TIBC,%SAT Routine 01/13/2025 9:09 AM CDT Depressive disorder Fatigue, unspecified type LIPID PANEL Routine 01/13/2025 9:09 AM CDT Hyperlipidemia, unspecified hyperlipidemia type THYROID STIMULATING HORMONE (TSH) Routine 01/13/2025 9:09 AM CDT Depressive disorder Fatigue, unspecified type COMPLETE BLOOD COUNT (CBC) WITH DIFF Routine 01/13/2025 9:09 AM CDT Depressive disorder Fatigue, unspecified type CMP (COMPREHENSIVE METABOLIC PANEL) Routine 01/13/2025 9:09 AM CDT Depressive disorder Fatigue, unspecified type from Last 3 Months Results * VITAMIN D, 25 HYDROXY TOTAL (01/13/2025 9:09 AM CDT) VITAMIN D, 25 HYDROX 52.8 ng/mL 01/13/2025 11:51 AM CDT [facility] Blood Venipuncture / Unknown 01/13/2025 9:09 AM CDT 01/13/2025 10:53 AM CDT Narrative [facility] - 01/13/2025 11:51 AM CDT Published reference ranges for Vitamin D vary depending on time and place and method of testing, and on patient's age, sex, ethnicity and levels of other measured analytes such as parathormone, calcium and phosphorus. The result should be evaluated in conjunction with clinical findings and suspicions. [place] of Medicine and Endocrine Clinical Practice Guidelines: Status Vitamin D levels (ng/mL) Deficient <=20 At risk of inadequacy 21-29 Sufficient 30-100 Centers of Disease Control and Prevention Guidelines: Status Vitamin D levels (ng/mL) Deficient <13 At risk of inadequacy 13-19 Sufficient 20-50 Possibly harmful >50 References: [place] of Medicine, 2010 Dietary reference intakes for calcium and vitamin D. [place]: The National Academies Press. Mami M, Sonam N, Corbin MORENO, et al., Evaluation, treatment, and prevention of Vitamin D deficiency: an Endocrinology Clinical Practice Guideline. JCEM 2011 96: 7 5655-8415. Ha A, Leonardo C, Dayanara D, et al., Vitamin D Status: [place], 2911-6348, [facility] / [facility] data brief, no. 59, MD Danielle: National Center for Health Statistics. 2011. Ligia Choi LOAD CHECKER, MOBILE QA TESTER CHEMISTRY ORDERABL ES Final Result [facility] [address] [place] [address] * (ABNORMAL) IRON,TRANSFERN,CALC.TIBC,%SAT (01/13/2025 9:09 AM CDT) IRON 59 25 - 156 mcg/dL 01/13/2025 11:24 AM CDT [facility] TRANSFERRIN 372 180 - 382 mg/dL 01/13/2025 11:24 AM CDT [facility] TIBC, CALCULATED 465 265 - 497 mcg/dL 01/13/2025 11:24 AM CDT [facility] % SATURATION * 13(L) 15 - 62 % 01/13/2025 11:24 AM CDT [facility] Blood Venipuncture / Unknown 01/13/2025 9:09 AM CDT 01/13/2025 10:53 AM CDT us Ligia Choi LOAD CHECKER, MOBILE QA TESTER CHEMISTRY ORDERABL ES Final Result [facility] [address] [place] [address] * (ABNORMAL) CBC WITH AUTO DIFFERENTIAL (01/13/2025 9:09 AM CDT) WBC 7.45 4.00 - 12.00 10(3)/mcL 01/13/2025 10:57 AM CDT [facility] RBC 4.40 3.80 - 5.30 10(6)/[facility] 01/13/2025 10:57 AM CDT [facility] HEMOGLOBIN (HGB) 11.9(L) 12.0 - 15.8 g/dL 01/13/2025 10:57 AM CDT [facility] HEMATOCRIT (HCT) 36.8 36.0 - 47.0 % 01/13/2025 10:57 AM CDT [facility] MCV 83.6 82.0 - 96.0 fL 01/13/2025 10:57 AM CDT [facility] MCH 27.0 26.0 - 34.0 pg 01/13/2025 10:57 AM CDT [facility] MCHC 32.3 31.0 - 36.0 g/dL 01/13/2025 10:57 AM CDT [facility] PLATELET COUNT 391 140 - 440 10(3)/mcL 01/13/2025 10:57 AM CDT [facility] RDW 13.0 11.8 - 15.5 % 01/13/2025 10:57 AM CDT [facility] MPV 10.2 9.7 - 12.4 fL 01/13/2025 10:57 AM CDT [facility] NEUTROPHILS 62.8 47.0 - 73.0 % 01/13/2025 10:57 AM CDT [facility] LYMPHOCYTES 29.3 18.0 - 42.0 % 01/13/2025 10:57 AM CDT [facility] MONOCYTES 4.6 4.0 - 12.0 % 01/13/2025 10:57 AM CDT [facility] EOSINOPHILS 2.3 0.0 - 5.0 % 01/13/2025 10:57 AM CDT [facility] BASOPHILS 0.7 0.0 - 1.0 % 01/13/2025 10:57 AM CDT [facility] IMMATURE GRANULOCYTE 0.3 0.0 - 0.4 % 01/13/2025 10:57 AM CDT [facility] ABSOLUTE NEUTROPHILS 4.69 1.60 - 7.70 10(3)/mcL 01/13/2025 10:57 AM CDT [facility] ABSOLUTE LYMPHOCYTES 2.18 1.30 - 3.20 10(3)/mcL 01/13/2025 10:57 AM CDT [facility] ABSOLUTE MONOCYTES 0.34 0.20 - 1.00 10(3)/mcL 01/13/2025 10:57 AM CDT [facility] ABSOLUTE EOSINOPHIL 0.17 0.00 - 0.40 10(3)/mcL 01/13/2025 10:57 AM CDT [facility] ABSOLUTE BASOPHILS 0.05 0.00 - 0.10 10(3)/mcL 01/13/2025 10:57 AM CDT [facility] ABSOLUTE IMMATURE GRANULOCYTE 0.02 0.00 - 0.03 10 (3) mcL. 01/13/2025 10:57 AM CDT [facility] NRBC PER 100 WBC 0 01/14/20 10:57 AM CDT [facility] Blood Venipuncture / Unknown 01/13/2025 9:09 AM CDT 01/13/2025 10:54 AM CDT Ligia Choi LOAD CHECKER, MOBILE QA TESTER HEMATOLOGY ORDERAB LES Final Result [facility] [address] [place] [address] * VITAMIN B12 (01/13/2025 9:09 AM CDT) VITAMIN B12 364 213 - 816 pg/mL 01/13/2025 11:51 AM CDT [facility] Blood Venipuncture / Unknown 01/13/2025 9:09 AM CDT 01/13/2025 10:53 AM CDT Ligia Choi APRN, MOBILE QA TESTER CHEMISTRY ORDERABL ES Final Result Performing Organization Address [facility] Co de Phone Number [facility] [address] [place] [address] * THYROID STIMULATING HORMONE (TSH) (01/13/2025 9:09 AM CDT) TSH 1.842 0.300 - 5.000 mIU/L 01/13/2025 11:39 AM CDT [facility] Blood Venipuncture / Unknown 01/13/2025 9:09 AM CDT 01/13/2025 10:53 AM CDT us Ligia Choi LOAD CHECKER, MOBILE QA TESTER CHEMISTRY ORDERABL ES Final Result Performing Organization Address City/[facility]/ZIP Co de Phone Number [facility] [address] [place] [address] * (ABNORMAL) LIPID PANEL (01/13/2025 9:09 AM CDT) CHOLESTEROL 218(H) <200 mg/dL 01/13/2025 11:24 AM CDT [facility] TRIGLYCERIDES 325(H) <150 mg/dL 01/13/2025 11:24 AM CDT [facility] HDL CHOLESTEROL 56 >40 mg/dL 11:24 AM CDT [facility] LDL 97 <130 mg/dL 01/13/2025 11:24 AM CDT [facility] VLDL 65(H) 10 - 50 mg/dL 01/13/2025 11:24 AM CDT [facility] CHOL/HDL RATIO 3.9 0.0 - 4.4 01/13/2025 11:24 AM CDT [facility] NON-HDL CHOLESTEROL 162(H) <130 mg/dL 01/13/2025 11:24 AM CDT [facility] IS THE PATIENT REQUIRED TO BE FASTING? Yes 01/13/2025 11:24 AM CDT [facility] HAS THE PATIENT BEEN FASTING? Yes 01/13/2025 11:24 AM [facility] Blood Venipuncture / Unknown 01/13/2025 9:09 AM CDT 01/13/2025 10:53 AM CDT Narrative [facility] - 01/13/2025 11:24 AM CDT NCEP GUIDELINES FOR LIPID INTERPRETATION TOTAL CHOLESTEROL DESIRABLE <200 BORDERLINE 200-239 HIGH >=240 LDL CHOLESTEROL OPTIMAL <100 NEAR OPTIMAL 100-129 BORDERLINE 130-159 HIGH 160-189 VERY HIGH >=190 Calculated using the Friedewald equation. HDL CHOLESTEROL LOW <40 *HIGH >=60 TRIGLYCERIDES NORMAL <150 BORDERLINE 150-199 HIGH 200-499 VERY HIGH >=500 VLDL calculated using Triglycerides/5. *HDL CHOLESTEROL >=60 mg/dL counts as a negative risk factor; its presence removes one risk factor from the total. Based on guidelines from the National Cholesterol Education Program, desirable levels for non HDL cholesterol are 30 mg/dL above target levels for LDL cholesterol. us Ligia Choi LOAD CHECKER, MOBILE QA TESTER CHEMISTRY ORDERABL ES Final Result [facility] [address] [place] [address] * (ABNORMAL) CMP (COMPREHENSIVE METABOLIC PANEL) (01/13/2025 9:09 AM CDT) SODIUM 138 136 - 145 mmol/L 01/13/2025 11:24 AM CDT [facility] POTASSIUM 3.9 3.5 - 5.1 mmol/L 01/13/2025 11:24 AM CDT [facility] CHLORIDE 106 98 - 107 mmol/L 01/13/2025 11:24 AM CDT [facility] CO2, VENOUS 21(L) 22 - 30 mmol/L 01/13/2025 11:24 AM CDT [facility] ANION GAP 14.9 <18.0 mmol/L 01/13/2025 11:24 AM CDT [facility] GLUCOSE 93 70 - 99 mg/dL 01/13/2025 11:24 AM CDT [facility] BUN 10 5 - 18 mg/dL 01/13/2025 11:24 AM CDT [facility] CREATININE, BLOOD 0.70 0.60 - 1.00 mg/dL 01/13/2025 11:24 AM CDT [facility] BUN/CREATININE RATIO 14 12 - 20 ratio 01/13/2025 11:24 AM CDT [facility] TOTAL PROTEIN 6.9 6.0 - 8.0 g/dL 01/13/2025 11:24 AM CDT [facility] ALBUMIN 4.2 3.5 - 5.0 g/dL 01/13/2025 11:24 AM CDT [facility] A/G RATIO 1.6 1.0 - 2.2 01/13/2025 11:24 AM CDT [facility] CALCIUM 8.9 8.7 - 10.5 mg/dL 01/13/2025 11:24 AM CDT [facility] T BILI 0.3 0.2 - 1.2 mg/dL 01/13/2025 11:24 AM CDT [facility] SGOT (AST) 31 <43 U/L 01/13/2025 11:24 AM CDT [facility] SGPT (ALT) 18 <56 U/L 01/13/2025 11:24 AM CDT [facility] ALKALINE PHOSPHATASE 66 40 - 150 U/L 01/13/2025 11:24 AM CDT [facility] IS THE PATIENT REQUIRED TO BE FASTING? No 01/13/2025 11:24 AM CDT [facility] GFR, ESTIMATED >60 >=60 01/13/2025 11:24 AM CDT [facility] Comment: Creatinine Clearance is the preferred criteria for selecting drug dose adjustments in renally impaired patients. The GFR is provided as additional pertinent clinical information. GFR is reported in mL/min/1.73 sq m. Calculation based on the 2020 Chronic Kidney Disease Epidemiology Collaboration (CKD-EPI) equation refit without adjustment for race. GFR, EST. >60 >=60 11:24 AM CDT [facility] Comment: Creatinine Clearance is the preferred criteria for selecting drug dose adjustments in renally impaired patients. The GFR is provided as additional pertinent clinical information. GFR is reported in mL/min/1.73 sq m. Calculation based on the 2009 Chronic Kidney Disease Epidemiology Collaboration (CKD-EPI). GFR, EST. NONAFRICAN >60 >=60 01/13/2025 11:24 AM CDT [facility] Comment: Creatinine Clearance is the preferred criteria for selecting drug dose adjustments in renally impaired patients. The GFR is provided as additional pertinent clinical information. GFR is reported in mL/min/1.73 sq m. Calculation based on the 2009 Chronic Kidney Disease Epidemiology Collaboration (CKD-EPI). Blood Venipuncture / Unknown 01/13/2025 9:09 AM CDT 01/13/2025 10:53 AM CDT us Ligia Choi LOAD CHECKER, MOBILE QA TESTER CHEMISTRY ORDERABL ES Final Result [facility] [address] [place] [address] from Last 3 Months Insurance MEDICAID [employer] Advance Directives * [...] measures to stabilize the patient. Care Teams Manager Call Center Relationship Specialty Start Date End Date Kj Merlos MD [address] [address] PCP - General Family Medicine 04/09/21 Tatiana Logan APRN, MOBILE QA TESTER [address] [place] [address] Nurse Practitioner Advanced Practice Nurse 01/29/24 Karen Andino APRN, MOBILE QA TESTER [address] [place] [address] Nurse Practitioner Cardiology 03/29/24
[2025-02-27 10:34] VITALS: BP 145/95; PULSE 78; RESP 20; TEMP 36.7; O2SAT 100
--- NOTE | 2025-02-27 10:34 | ED_ITS ---
HPI - Skin/Abscess/Foreign Bdy General Chief complaint: Skin/Abscess/Foreign Body Stated complaint: poison elpidio Time Seen by Provider: 02/27/25 10:40 Source: patient, RN notes reviewed and old records reviewed Mode of arrival: ambulatory Limitations: no limitations History of Present Illness HPI narrative: 34-year-old female presents to the [facility] with a rash to the right forearm. States that she was clearing trees 2 days ago, developed a rash. Had been using anti-itch cream. Related Data Home Medications ?Medication ?Instructions ?Recorded ?Confirmed ?Last Taken ?Type venlafaxine 75 mg capsule,extended mg PO 01/12/24 Unk nown History release 24 hr buspirone 15 mg tablet mg 07/23/24 Unknown History omeprazole 40 mg capsule,delayed mg 07/23/24 Unknown History release Allergies Allergy/AdvReac Type Severity Reaction Status Date / Time amoxicillin Allergy Unknown RASH Verified 02/27/25 10:47 cefaclor Allergy Unknown RASH Verified 02/27/25 10:47 clavulanic acid Allergy Unknown RASH Verified 02/27/25 10:47 codeine Allergy Unknown Rash Verified 02/27/25 10:47 Review of Systems Review of Systems: All systems reviewed & are unremarkable except as noted in HPI and below Constitutional: Constitutional: Reports no additional constitutional complaints ENT: Reports system reviewed and no additional complaints, except as documented Cardiovascular: Cardiovascular: Reports no additional cardiovascular complaints, Denies chest pain and Denies dyspnea Respiratory: Respiratory: Reports no additional respiratory complaints, Denies chest congestion, Denies cough and Denies dyspnea Musculoskeletal: Musculoskeletal: Reports no additional musculoskeletal complaints Integumentary/Breasts: Skin/Breast: Reports as per HPI and Reports rash PMFSH Past Medical History Medical History Anxiety IBS (irritable bowel syndrome) GERD (gastroesophageal reflux disease) No significant medical problems Surgical History Surgical History Previous back surgery Status post laparoscopic fundoplication History of tonsillectomy History of placement of ear tubes Family History Family History Other No significant family history Social History Social History (Reviewed 02/27/25 @ 19:15 by EDGARDO Monteiro Alcohol intake: current Substance use: never Living arrangements: with family Gender identity (if verbalized by the patient): Female Sexual Orientation (if Verbalized by the Patient): Straight or Heterosexual Spiritual care concerns: No Comments At the time of my signature, I reviewed and agree with the nursing past medical, surgical, social, and family history. There is no relevant family history pertinent to the patient complaint. Exam Const: General: cooperative, healthy appearing, comfortable, no acute distress, well developed, alert and well nourished Nutritional Appearance: well nourished and obese Orientation/consciousness: patient oriented x3 Limitations: no limitations HENMT: Head: normal to inspection Ears: hearing grossly normal bilaterally, external ears normal, TM's normal bilaterally, EAC's normal, mastoids normal and no periauricular adenopathy Mouth: Yes Normal oral and palatal mucosa present, Yes lip normal, Yes tongue normal and Yes moist mucous membranes abnormal Throat: posterior oropharynx normal, uvula midline and no uvular edema Eyes: General: appearance normal, both eyes and all related structures Alignment and Position: alignment normal Neck: Neck: normal visual inspection, full ROM, no lymphadenopathy and no meningeal signs Chest: Chest palpation & inspection: normal inspection of the chest Resp: Effort & Inspection: normal respiratory effort and able to speak in complete sentences Auscultation: clear to auscultation bilaterally, no crackles, no rales, no rhonchi and no wheezes Cardio: Rate: regular rate Skin: General skin exam: normal color and no rashes or lesions noted Other: small vesicular areas most likely dermatitis to the volar aspect right forearm Neuro: General: patient oriented x3, gait normal, moves all extremities and no meningeal signs Cognition (Neuro): normal cognition Speech: normal speech Gait exam (Neuro): Normal gait present Extrem: General: normal to inspection, full ROM, capillary refill normal and normal gait Psych: Appearance: grossly normal and well kempt Mental Status: mental status grossly normal Speech and movement: Normal speech and movement present and Clear speech present Affect: normal affect Attitude: cooperative Course Course Level of Care: Express Care Visit Vital Signs Vital signs: Vital Signs Temperature 98.1 F 02/27/25 10:34 Pulse Rate 78 02/27/25 10:34 Respiratory Rate 20 02/27/25 10:34 Blood Pressure 145/95 H 02/27/25 10:34 Pulse Oximetry 100 02/27/25 10:34 Oxygen Delivery Room Air 02/27/25 10:34 Temperature 98.1 F 02/27/25 10:34 Pulse Rate 78 02/27/25 10:34 Respiratory Rate 20 02/27/25 10:34 Blood Pressure 145/95 H 02/27/25 10:34 Pulse Oximetry 100 02/27/25 10:34 Oxygen Delivery Room Air 02/27/25 10:34 Reviewed MDM - Skin/Abscess/Foreign Bdy MDM Narrative Medical decision making narrative: patient sitting comfortably in exam room. Patient is nontoxic, vitals stable. Patient presents with a rash to volar aspect right forearm rash most consistent with a plant dermatitis. States that she was cutting brush or trees back a couple of days ago patient is appropriate for outpatient treatment with close follow-up Discharge instructions reviewed with patient, as well as provided in writing per nursing staff. The instructions also include specific and strict return/GO TO THE ER as well as f/u information. All questions have been answered, and the patient deny any further questions with discharge and discharge plan. Some parts of this dictation were generated by voice recognition software and may contain typographical and/or grammatical inaccuracies. Differential Diagnosis Differential diagnosis: Likely abscess of skin or subcutaneous tissue, urticaria, allergic reaction to drug, cellulitis, insect bites and contact dermatitis Critical Care Time Critical Care Time Critical Care Time: No Discharge Plan Discharge Clinical Impression: Contact dermatitis Patient Disposition: Home Condition: Stable Instructions: Contact Dermatitis (ED) Additional Instructions: The most important part of your care is follow up with Primary care provider. Take Zyrtec every day for 14 days Take Pepcid 20mg daily for 14 days Take the steroids starting today when you get them and then take every morning. Avoid hot showers, Take cool showers. Hot showers will make rashes worse Apply cool compresses every 2-3 hours for 15 minutes Go to the ER for new or worsening symptoms such as shortness of breath. Patient Language: Armenian Prescriptions: New prednisone 20 mg tablet See Rx Instructions .Route .COMPLEX Qty: 18 0RF Rx Instructions: Take 60 mg daily for 3 days, 40 mg daily for 3 days, 20 mg daily for 3 days No Action venlafaxine 75 mg capsule,extended release 24hr PO omeprazole 40 mg capsule,delayed release(DR/EC) buspirone 15 mg tablet Follow-up/Referrals: Chelita,Kj Triana MD [Primary Care Provider] - 2 Weeks Clinical Impression: Contact dermatitis Stand Alone Forms: Work/School Release IP Time of Disposition: 10:53
== END 2025-02-27 11:02 | disposition home or self-care (01) ==
PROVIDERS: Emergency Provider Nurse Practitioner; PCP Internal Medicine
DX: L25.9 Unspecified contact dermatitis, unspecified cause (principal); K21.9 Gastro-esophageal reflux disease without esophagitis; F41.9 Anxiety disorder, unspecified
CPT/HCPCS: 99213; G0463